=== PATIENT | female | born 1940 | race Caucasian/White ===

== ENCOUNTER 2016-08-31 03:49 | Inpatient (IN) | payer OTHER ==
[~2016-08-31] VITALS: Ht 162.6 cm; Wt 52.2 kg
[~2016-08-31 03:49] MED LIST: ADVAIR 250-501 EACH INH; ALBUTEROL0.09 MG/A1 INH; ALBUTEROL0.63 MG/1 INH/SOL; ALPRAZOLAM0.25 M1 PO; AYR SALINE NASA22 ML NASB; AZITHROMYCIN250 M1 PO; FLUTICASON0.05 MG/A2 NASB; LEVAQUIN500 MG PO; MUCINEX600 M1 PO; PAXIL20 MG PO; PREDNISONE 20MG20 MG PO; PREDNISONE10 M2 PO; PREDNISONE10 MG PO; PROAIR RESPICL90 MCG INH; SPIRIVA18 MCG INH; XANAX 0.25MG0.25 MG PO; ZITHROMAX250 M2 PO
--- NOTE | 2016-08-31 04:03 | ED DYSPNEA/ASTHMA COMPLAINT ---
History of Present Illness General Chief Complaint: Dyspnea (COPD, CHF, Other) Stated Complaint: SOB Source: patient, old records, EMS Exam Limitations: no limitations Vital Signs & Intake/Output Vital Signs & Intake/Output Vital Signs Date Time Temp Pulse Resp B/P Pulse O2 O2 Flow FiO2 Ox Delivery Rate 08/31 447 97 Nasal 3.0L Cannula 08/31 446 100.8 08/317 97 Nasal 2.0L Cannula 08/31 403 100.8 119 22 170/90 97 Nasal 3.0L Cannula Allergies Coded Allergies: levofloxacin (Mild, LEGS FELT TIGHT 01/18/16) clarithromycin (UNKNOWN - PT DOESNT REMEMBER WAS TOLD BY MD NOT TO TAKE 01/18/16 ) Reconcile Medications Albuterol Sulfate 0.63 MG/3 ML VIAL.NEB 1 Vial INH/AMOS TID COPD (Reported) Reason to Stop at ADM:[facility] ORDERS Albuterol Sulfate (Proair Respiclick) 90 MCG AER.POW.BA 2 PUFF INH Q4-6 PRN COPD Reason to Stop at ADM: [facility] ORDERS Alprazolam 0.25 MG TABLET 1 TAB PO PRN ANXIETY/SLEEP (Reported) Azithromycin 250 MG TABLET 1 TAB PO DAILY COPD exacerbation Fluticasone/Salmeterol (Advair 250-50 Diskus) 1 EACH BLST.W.DEV 1 PUF INH BID COPD (Reported) Reason to Stop at ADM: [facility] ORDERS Prednisone 10 MG TABLET 0 PO AD COPD exacerbation Please take prednisone: 6 tablets on 05/04/16 5 tablets on 05/05/16 4 tablets on 05/06/16 3 tablets on 05/07/16 2 tablets on 05/08/16 1 tablet on 05/09/16 and then stop then stop. Sodium Chloride ([place] Saline 50 Ml) 50 ML AMOS 2 GTT NASB BID PRN CONGESTION ( Reported) Tiotropium [place] (Spiriva) 18 MCG CAP.W.DEV 1 CAP INH DAILY COPD (Reported) Reason to Stop at ADM: [facility] NEB ORDER Triage Nurses Notes Reviewed? yes Onset: Gradual Duration: day(s):, getting worse Timing: recent history Severity: moderate Activities at Onset: none Prior Episodes/Possible Cause: occasional episodes Modifying Factors: Improves With: other (better w/neb). Associated Symptoms: wheezing HPI: 76-year-old woman with O2 dependent COPD presents With 1-2 days of coughing and wheezing dyspnea increased sputum production. She notes that tonight it got much worse. She was unable to catch her breath. She called 911. The medics arrived and they found her with an O2 sat in the low 90s on 3 L nasal cannula. They gave her a DuoNeb and brought her to the emergency department. She states that the DuoNeb helped her breathing. She notes no chest pain dizziness syncopal symptoms. She is otherwise well. Past History Medical History Any Pertinent Medical History? 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 Hx Contributory? No Review of Systems Review of Systems Constitutional: Reports: no symptoms. EENTM: Reports: no symptoms. Respiratory: Reports: no symptoms. Cardiovascular: Reports: no symptoms. GI: Reports: no symptoms. Genitourinary: Reports: no symptoms. Musculoskeletal: Reports: no symptoms. Skin: Reports: no symptoms. Neurological/Psychological: Reports: no symptoms. Hematologic/Endocrine: Reports: no symptoms. Immunologic/Allergic: Reports: no symptoms. All Other Systems: Reviewed and Negative Physical Exam Physical Exam General Appearance: well developed/nourished, moderate distress Head: atraumatic, normal appearance Eyes: Bilateral: normal appearance. Ears, Nose, Throat: normal pharynx, normal ENT inspection Neck: normal inspection, supple, full range of motion Respiratory: normal breath sounds, wheezing, prolonged expiratory phase Cardiovascular: regular rate/rhythm Gastrointestinal: normal bowel sounds, soft Extremities: normal inspection Neurologic/Psych: no motor/sensory deficits, awake, alert, oriented x 3 Skin: intact, normal color, warm/dry Core Measures ACS in differential dx? No Severe Sepsis Present: No Septic Shock Present: No Progress Differential Diagnosis: asthma, bronchitis, costochondritis, COPD Plan of Care: Orders Procedure Date/time Status Regular Diet 08/31 B Active Saline Lock 08/31 517 Active Misc Message 08/31 517 Active ED Holding Orders 08/31 517 Active Vital Signs 08/31 517 Active Code Status 08/31 517 Active Admit to inpatient 08/31 516 Active Patient Data 08/31 509 Active ARTERIAL BLOOD GAS (GEN) 08/31 404 Complete BLOOD CULTURE 08/31 404 Active BLOOD CULTURE 08/31 403 Active TROPONIN LEVEL 08/31 402 Complete COMPREHENSIVE METABOLIC PANEL 08/31 402 Complete CBC WITHOUT DIFFERENTIAL 08/31 402 Complete B-TYPE NATRIURETIC PEP (BNP) 08/31 402 Complete EKG 08/31 402 Active Current Medications Sig/Kirill Start time Last Medication Dose Stop Time Status Admin Acetaminophen 975 MG ONCE ONE 08/31 414 CAN (Tylenol) 08/31 415 Laboratory Tests 08/31/162: Anion Gap 12, Estimated GFR > 60, BUN/Creatinine Ratio 21.7, Glucose 144 H, Calcium 9.3, Total Bilirubin 0.7, AST 26, ALT 27, Alkaline Phosphatase 105, Troponin I 0.03, Oao-T-Eqeyhsewzig Pept 185 H, Total Protein 7.1, Albumin 4.3, Globulin 2.8, Albumin/Globulin Ratio 1.5, CBC w Diff MAN DIFF ORDERED, RBC 5.29, MCV 86.9, MCH 28.7, RDW 15.2 H, MPV 7.7, Gran % 91.4 H, Lymphocytes % 2.7 L, Monocytes % 5.3, Eosinophils % 0.3, Basophils % 0.3, Absolute Granulocytes 9.4 H, Segmented Neutrophils 86 H, Band Neutrophils 3, Absolute Lymphocytes 0.3 L, Lymphocytes 4 L, Monocytes 5, Absolute Monocytes 0.5, Absolute Eosinophils 0, Basophils 2, Absolute Basophils 0, Platelet Estimate ADEQUATE, Normochromic RBCs VERIFIED, Poikilocytosis 1+, Ovalocytes 1+, PUBS MCHC 33.0, Fld Total RBCs Counted 100 08/31/160: pH 7.42, pCO2 37, pO2 79 L, HCO3 23, ABG O2 Sat (Measured) 94.0 L, P-50 (Temp Corrected) Y, Carboxyhemoglobin 0.7 L, O2 Concentration % 2 LPM, Temperature 100.8 H, O2 Delivery Method N/C, Phlebotomy Draw Site RIGHT RADIAL Microbiology 08/31 426 BLOOD: Blood Culture - RECD 08/31 411 BLOOD: Blood Culture - RECD Diagnostic Imaging: Viewed by Me: Radiology Read. Discussed w/RAD: Radiology Read. CXR Impression: severe emphysema... full report below. Initial ED EKG: normal axis, normal intervals, normal p-waves, normal QRS complex, normal sinus rhythm Departure Departure Disposition: STILL A PATIENT Condition: Stable Clinical Impression Primary Impression: COPD exacerbation Referrals: CHI LEY MD (PCP/Family) Departure Forms: Customer Survey General Discharge Information Admission Note Spoke With: CHI LEY MD Documentation of Exam: Documentation of any treatments & extenuating circumstances including Concerns Regarding Discharge (functional status, medication knowledge or non-compliance, living conditions, etc.) that warrant an admission rather than observation: Pt with 02 dependent copd with increased 02 requirement, wheezing, prolonged expiratory phase, consistent with copd exacerbation. Pt requires increased 02 support for this medically fragile patient, as well as iv steroids/abx/nebs. Critical Care Note Critical Care Note Critical Care Time: non-applicable
--- NOTE | 2016-08-31 04:03 | NUR ---
PT BIBA FROM HOME. PT C/O INCREASING SOB, PT HAS HX OF COPD. PT USUALLY WEARS 2LNC AT HOME, O2 SAT 91%, PT RECIEVED A DUONEB IN THE FIELD. PT NOW SATING 100% ON 5L.
--- NOTE | 2016-08-31 04:03 | NUR ---
AT BEDSIDE FOR EVAL
--- NOTE | 2016-08-31 04:10 | NUR ---
RESPIRATORY AT BEDSIDE
[2016-08-31 04:25] LABS: ABSOLUTE BASOPHIL COUNT 0 /CUMM (0.0-0.2); ABSOLUTE EOSINOPHIL COUNT 0 /CUMM (0.0-0.7); ABSOLUTE GRANULOCYTE CT 9.4 /CUMM (1.4-6.5); ABSOLUTE LYMPH COUNT 0.3 /CUMM (1.2-3.4); ABSOLUTE MONOCYTE COUNT 0.5 /CUMM (0.10-0.60); BASOPHIL % 0.3 % (0.0-2.0); EOSINOPHIL % 0.3 % (0-5); GRANULOCYTE % 91.4 % (42.2-75.2); MEAN CORPUSCULAR HGB 28.7 PG (27.0-31.0); MEAN CORPUSCULAR VOLUME 86.9 FL (81.0-99.0); MEAN PLATELET VOLUME 7.7 FL (7.4-10.4); PLATELET COUNT 324 /CUMM (130-400); RBC DISTRIBUTION WIDTH 15.2 % (11.5-14.5); RED BLOOD CELL CT 5.29 /CUMM (4.20-5.40); WHITE BLOOD CELL COUNT 10.2 /CUMM (4.8-10.8)
--- NOTE | 2016-08-31 04:34 | RADIOLOGY REPORT ---
EXAMINATION: CHEST 1 VIEW CLINICAL INFORMATION: Dyspnea. COMPARISON: 05/01/2016. TECHNIQUE: An AP view of the chest is provided. FINDINGS: The cardiac silhouette is not enlarged. The mediastinal and hilar contours are unremarkable. There are neither pleural effusions nor pneumothoraces. Again identified is severe emphysema. There is vascular crowding noted within both lung bases. There is no acute airspace disease. The osseous structures are unremarkable. IMPRESSION: No consolidations. Severe emphysema.
--- NOTE | 2016-08-31 04:40 | NUR ---
PT MEDICATED WITH 1G ROCEPHIN, 250MG ZITHROMAX, 125MG SOLUMEDROL PER EMAR
--- NOTE | 2016-08-31 04:50 | NUR ---
PT MEDICATED WITH IG OFFIRMEV AND 4MG ZOFRAN PER EMAR
--- NOTE | 2016-08-31 04:50 | NUR ---
EKG IN PROGRESS
--- NOTE | 2016-08-31 04:58 | NUR ---
EKG DONE AND SHOWN TO DR. LESTER.
--- NOTE | 2016-08-31 05:10 | History & Physical ---
See Addendum JJ CLIFFORD,NANCY 08/31/16 0510: General Information and HPI MD Statement: I have seen and personally examined YISEL JAUREGUI and documented this H&P. The patient is a 76 year old F who presented with a patient stated chief complaint of [shortness of breath, chest tightness]. Source of Information: patient Exam Limitations: no limitations History of Present Illness: Patient is a 76-year-old lady who came to the ED due to shortness of breath and chest tightness. Patient has been having coughing and wheezing as well as increased sputum production over the past couple of days which was worsened last night around 9:30 PM, to the extent that she couldn't 'put herself out of it', she called 911, EMS detected oxygen saturation in low 90s on 3 L per nasal cannula, gave her DuoNeb treatment, which helped with help with her breathing, then brought her to the ED. Patient reports nasal congestion, runny nose, coughing with clear sputum production over the past few days. She reports chest tightness and palpitation when she can't breathe through the nose, also reports chronic PND and sinus pressure. Patient reports that recently she has lost appetite and also has lost weight. She feels that due to persistent dyspnea her diaphragm muscles get tired and she loses the appetite. Patient denies fever or chills. Patient reports that since her last admission in April she has been dealing with SOB constantly but last night was acutely worsened. Also reports a URTI in June for which she was given a 10 day course of keflex. 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 MOTHER FH: breast cancer Psychosocial History Who Do You Live With? child Services at Home: Oxygen Primary Language: Syrian Living Will? yes Functional Ability ADLs Independent: dressing, eating, toileting, bathing. Ambulation: independent IADLs Independent: finances, telephone, medication admin. Needs Assist: shopping (has aid at home x2 per week), housework, food prep, transportation. Review of Systems Review of Systems Constitutional: Denies: chills, fever, weakness. EENTM: Reports: no symptoms. Cardiovascular: Reports: chest pain, palpitations (w/ cough & shortness of breath). Denies: peripheral edema. Respiratory: Reports: cough, short of breath, sputum production, wheezing. Denies: orthopnea. GI: Reports: constipation (since she used keflex in Jun). Denies: abdominal pain. Genitourinary: Reports: no symptoms. Musculoskeletal: Reports: no symptoms. Skin: Reports: dryness. Denies: lesions. Neurological/Psychological: Reports: no symptoms. Denies: headache (reports sinus pressure). Hematologic/Endocrine: Reports: no symptoms. Exam & Diagnostic Data Last 24 Hrs of Vital Signs/I&O Vital Signs Date Time Temp Pulse Resp B/P Pulse O2 O2 Flow FiO2 Ox Delivery Rate 08/31 0448 97 Nasal 3.0L Cannula 08/31 0447 100.8 08/31 0417 97 Nasal 2.0L Cannula 08/31 0404 100.8 119 22 170/90 97 Nasal 3.0L Cannula Intake & Output 08/31 0800 08/31 0000 08/30 1600 Intake Total 650 Output Total Balance 650 Intake, IV 650 Patient 52.163 kg Weight Physical Exam General Appearance Alert, Oriented X3, Cooperative, Mild Distress Skin dry and scaling, hyperpigmentation and distal upper extremities. HEENT Atraumatic, PERRLA, EOMI, Mucous Membr. moist/pink Neck Supple, No JVD Cardiovascular Normal S1, Normal S2, No Murmurs Lungs ecreased breath sounds, rhonchi and wheezing diffuse and bilateral, no crackles Abdomen Normal Bowel Sounds, Soft, No Tenderness Neurological Normal Speech, Strength at 5/5 X4 Ext, Normal Tone, Sensation Intact, Cranial Nerves 3-12 NL Extremities No Clubbing, No Cyanosis, No Edema, Normal Pulses, No Tenderness/ Swelling Vascular Normal Pulses, Pulses Symmetrical Last 24 Hrs of Labs/Mannie: Laboratory Tests 08/31/16411: Anion Gap 12, Estimated GFR > 60, BUN/Creatinine Ratio 21.7, Glucose 144 H, Calcium 9.3, Total Bilirubin 0.7, AST 26, ALT 27, Alkaline Phosphatase 105, Troponin I 0.03, Vsp-F-Bnrdsnvclom Pept 185 H, Total Protein 7.1, Albumin 4.3, Globulin 2.8, Albumin/Globulin Ratio 1.5, D-Dimer 397 H, CBC w Diff MAN DIFF ORDERED, RBC 5.29, MCV 86.9, MCH 28.7, RDW 15.2 H, MPV 7.7, Gran % 91.4 H, Lymphocytes % 2.7 L, Monocytes % 5.3, Eosinophils % 0.3, Basophils % 0.3, Absolute Granulocytes 9.4 H, Segmented Neutrophils 86 H, Band Neutrophils 3, Absolute Lymphocytes 0.3 L, Lymphocytes 4 L, Monocytes 5, Absolute Monocytes 0.5, Absolute Eosinophils 0, Basophils 2, Absolute Basophils 0, Platelet Estimate ADEQUATE, Normochromic RBCs VERIFIED, Poikilocytosis 1+, Ovalocytes 1+, PUBS MCHC 33.0, Fld Total RBCs Counted 100 08/31/16409: pH 7.42, pCO2 37, pO2 79 L, HCO3 23, ABG O2 Sat (Measured) 94.0 L, P-50 (Temp Corrected) Y, Carboxyhemoglobin 0.7 L, O2 Concentration % 2 LPM, Temperature 100.8 H, O2 Delivery Method N/C, Phlebotomy Draw Site RIGHT RADIAL Microbiology 08/31 426 BLOOD: Blood Culture - RECD 08/31 411 BLOOD: Blood Culture - RECD Assessment/Plan Assessment: Patient is a 76-year-old lady with a past medical history of COPD on 2 L home oxygen, lung cancer status post radiation, who was brought in to the ED by ambulance due to sudden onset shortness of breath and chest tightness which improved after treatment with nebulizers. Patient is admitted to general medicine floor for possible COPD exacerbation. Problem list and plan Acute hypoxic respiratory failure, possibly due to COPD exacerbation, rule out pulmonary embolism Currently saturating at 97% with 3 L per nasal cannula. Chest x-ray shows no consolidations, severe emphysema. Patient has sinus tachycardia in the EKG. * Check d-dimer, if positive will order a CTA * O2 sats supplementation as needed * [facility] evaluation and treatment * IV Solu-Medrol 40 mg every 8 * Course of Azithromycin * Tinea Spiriva and Symbicort * Pulmonary consult with Dr. Fischer in the a.m. DVT prophylaxis * Subcutaneous Lovenox Diet * Regular CODE STATUS * Full code As Ranked By This Provider Problem List: 1. History of lung cancer 2. Acute exacerbation of chronic obstructive pulmonary disease (COPD) 3. Chest pressure Core Measures/Miscellaneous Acute Coronary Syndrome ACS Diagnosis: No Cerebrovascular Accident CVA/TIA Diagnosis: No Congestive Heart Failure CHF Diagnosis: No Venous Thromboembolism VTE Risk Factors: Acute medical illness, Age > 40 VTE Prophylaxis Ordered Inpt: Pharm- Lovenox No Mech VTE prophylaxis d/t: No contraindications No VTE Pharm Prophylaxis d/t: No contraindications VTE Diagnosis: No VTE Type: NONE VTE Confirmed by (Test): NONE Severe Sepsis Severe Sepsis Present: No Septic Shock Septic Shock Present: No Miscellaneous Documentation Attending Case Discussed With: CHI LEY MD Primary Care Physician: CHI LEY MD Patient sees these Specialists Dr. Washington, pulmonary Level of Patient Care: General Medicine DEREK CABRAL 08/31/16 0550: General Information and HPI Allergies/Medications Home Med list Albuterol Sulfate 0.63 MG/3 ML VIAL.NEB 1 Vial INH/AMOS TID COPD (Reported) Reason to Stop at ADM:[facility] ORDERS Albuterol Sulfate (Proair Respiclick) 90 MCG AER.POW.BA 2 PUFF INH Q4-6 PRN COPD Reason to Stop at ADM: [facility] NEB ORDERS Alprazolam 0.25 MG TABLET 1 TAB PO PRN ANXIETY/SLEEP (Reported) Fluticasone/Salmeterol (Advair 250-50 Diskus) 1 EACH BLST.W.DEV 1 PUF INH BID COPD (Reported) Reason to Stop at ADM: [facility] NEB ORDERS Sodium Chloride ([place] Saline 50 Ml) 50 ML AMOS 2 GTT NASB BID PRN CONGESTION ( Reported) Tiotropium [place] (Spiriva) 18 MCG CAP.W.DEV 1 CAP INH DAILY COPD (Reported) Reason to Stop at ADM: [facility] NEB ORDER Resident Review Statement Resident Statement: examined this patient, discussed with internet systems administrator, agreed with internet systems administrator Other Findings: Patient is a 76-year-old female with past medical history significant for lung cancer status post radiation and oxygen dependent COPD 2 L at home came with chief complaint of worsening shortness of breath and wheezing since yesterday. Patient admits she was not feeding weak lately but for the last 1-2 days her breathing was very labored and she heard herself wheezing a lot. His heart for her to catch her breath. She is visited by visiting nurse twice a week. She is compliant with her medications. She denied fever, chills, nausea, vomiting, chest pain but admit for having chest pressure this. She had productive cough with clear phlegm. She denied any urinary or bowel complaints Vital signs admission were temperature 100.8, pulse 119, respiratory rate 22, blood pressure 170/90 and she is saturating 97% on room air. Labs were significant for WBC count 10.2, hemoglobin 15.2, hematocrit 46.0, platelet count 324, ABG showed 7.42/37/79/23. Sodium 136, potassium 5.0, chloride 96, BUN 13 and creatinine 0.6 glucose is 144 Chest x-ray showed emphysema but no consolidation EKG shows sinus tachycardia Physical examination Alert and oriented to time person and place but labored breathing with accessory muscles Head atraumatic Neck supple Heart tachycardia with irregular heart beat, no murmurs Chest wheezing and reduced air entry Abdomen normal bowel sounds Extremities no cyanosis or edema noted Assessment and plan Patient is a frail 76-year-old female with history of lung cancer status post radiation and oxygen dependent COPD came with worsening shortness of breath most likely secondary to COPD exacerbation Admit patient on to the medical floor and taking care for the following issues Problem #1 worsening shortness of breath most likely due to COPD exacerbation in a patient of underlying LUNG cancer status post radiation -Vital signs every shift -TRC and nebulization -Antibiotic coverage with ceftriaxone and azithromycin -IV Solu-Medrol 40 mg 3 times a day -Pulmonology consultation with Dr. Washington in a.m. -We will check d-dimer, if high do CTA chest to rule out PE as patient has underlying cancer history and she is tachycardic with low-grade fever and hypoxia -We'll continue home medications including nebulizers and inhalers Pharmacological DVT prophylaxis Regular diet Patient is full code -
--- NOTE | 2016-08-31 05:42 | NUR ---
Emergency Dept UC Admit Note: To be admitted to [facility] by DR. LEY with COPD EXACERBATION as the diagnosis, to [id number]. Nursing Core Checker and admitting notified 08/31/16 at 0540
--- NOTE | 2016-08-31 05:44 | NUR ---
REPORT GIVEN TO MYKE PATEL
--- NOTE | 2016-08-31 06:46 | NUR ---
PT ARRIVED TO FLOOR AT 0605 VIA STRETCHER. TRANSFERED INDEPENDENTLY TO BED. VSS. 3L O2. SMALL PINPOINT AREA TO L BUTTOCK, PER PT OLD HEALING ULCER, REDNESS TO AREA, ENCOURAGED TO T AND R. PT INDEPENDENT AT BASELINE. INSTRUCTED TO CALL FOR HELP IF NEED TO GET OUT OF BED FOR FIRST TIME. PT UNDERSTANDS. ORIENTED TO CALL SINGH AND NURSE. DENIES SOB DENIES PAIN. WILL MONITOR
[2016-08-31 06:56] VITALS: BP 118/58
--- NOTE | 2016-08-31 08:48 | Cons- Pulmonary ---
General Information and HPI Consulting Request Date of Consult: 08/31/16 Requested By: tracey Reason for Consult: Shortness of breath History of Present Illness: Patient is 76-year-old with oxygen-dependent COPD admitted with increasing shortness of breath. She reports having been homebound since discharge in the fall with persistent shortness of breath and weakness she's received several courses of prednisone and antibiotics for suspected sinusitis yesterday she had worsening shortness of breath unrelieved by nebulizer and came to the emergency room and has had no chest pain or hemoptysis chest x-ray was unrevealing Allergies/Medications Allergies: Coded Allergies: levofloxacin (Mild, LEGS FELT TIGHT 01/18/16) clarithromycin (UNKNOWN - PT DOESNT REMEMBER WAS TOLD BY MD NOT TO TAKE 01/18/16 ) Home Med List: Albuterol Sulfate 0.63 MG/3 ML VIAL.NEB 1 Vial INH/AMOS TID COPD (Reported) Reason to Stop at ADM:[facility] ORDERS Albuterol Sulfate (Proair Respiclick) 90 MCG AER.POW.BA 2 PUFF INH Q4-6 PRN COPD Reason to Stop at ADM: [facility] ORDERS Alprazolam 0.25 MG TABLET 1 TAB PO PRN ANXIETY/SLEEP (Reported) Fluticasone/Salmeterol (Advair 250-50 Diskus) 1 EACH BLST.W.DEV 1 PUF INH BID COPD (Reported) Reason to Stop at ADM: [facility] ORDERS Sodium Chloride (Clovis Saline 50 Ml) 50 ML AMOS 2 GTT NASB BID PRN CONGESTION ( Reported) Tiotropium [place] (Spiriva) 18 MCG CAP.W.DEV 1 CAP INH DAILY COPD (Reported) Reason to Stop at ADM: [facility] NEB ORDER Review of Systems Review of Systems Constitutional: Denies: chills, fever. Cardiovascular: Denies: chest pain. Respiratory: Reports: cough, short of breath, sputum production. GI: Denies: abdominal pain, bloating, diarrhea, melena. 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 MOTHER FH: breast cancer Psychosocial History Where Do You Live? Home Who Do You Live With? child Services at Home: Oxygen Primary Language: Fijian Smoking Status: Former Smoker Living Will? yes Functional Ability ADLs Independent: dressing, eating, toileting, bathing. Ambulation: independent IADLs Independent: shopping, housework, finances, food prep, telephone, transportation , medication admin. Exam & Diagnostic Data Last 24 Hrs of Vital Signs/I&O Vital Signs Date Time Temp Pulse Resp B/P Pulse O2 O2 Flow FiO2 Ox Delivery Rate 08/31 0656 97.9 95 20 118/58 96 Nasal 3.0L Cannula 08/31 0642 Nasal 3.0L Cannula 08/31 0448 97 Nasal 3.0L Cannula 08/31 0447 100.8 08/31 0417 97 Nasal 2.0L Cannula 08/31 0404 100.8 119 22 170/90 97 Nasal 3.0L Cannula Intake & Output 08/31 1600 08/31 0800 08/31 0000 Intake Total 650 Output Total Balance 650 Intake, IV 650 Patient 115 lb Weight Oxygen saturation 3 L 96% she has low-grade temperature 100.8 exam for chest shows diminished breath sounds are no wheezes cardiac exam shows regular S1 and S2 without murmurs abdominal exam is soft nontender she has no lower extremity edema or calf tenderness Last 48 Hrs of Labs/Mannie: Laboratory Tests 08/31/16 0412: Anion Gap 12, Estimated GFR > 60, BUN/Creatinine Ratio 21.7, Glucose 144 H, Calcium 9.3, Total Bilirubin 0.7, AST 26, ALT 27, Alkaline Phosphatase 105, Troponin I 0.03, Zdz-J-Lidokmwowvi Pept 185 H, Total Protein 7.1, Albumin 4.3, Globulin 2.8, Albumin/Globulin Ratio 1.5, D-Dimer 397 H, CBC w Diff MAN DIFF ORDERED, RBC 5.29, MCV 86.9, MCH 28.7, RDW 15.2 H, MPV 7.7, Gran % 91.4 H, Lymphocytes % 2.7 L, Monocytes % 5.3, Eosinophils % 0.3, Basophils % 0.3, Absolute Granulocytes 9.4 H, Segmented Neutrophils 86 H, Band Neutrophils 3, Absolute Lymphocytes 0.3 L, Lymphocytes 4 L, Monocytes 5, Absolute Monocytes 0.5, Absolute Eosinophils 0, Basophils 2, Absolute Basophils 0, Platelet Estimate ADEQUATE, Normochromic RBCs VERIFIED, Poikilocytosis 1+, Ovalocytes 1+, PUBS MCHC 33.0, Fld Total RBCs Counted 100 08/31/16 0410: pH 7.42, pCO2 37, pO2 79 L, HCO3 23, ABG O2 Sat (Measured) 94.0 L, P-50 (Temp Corrected) Y, Carboxyhemoglobin 0.7 L, O2 Concentration % 2 LPM, Temperature 100.8 H, O2 Delivery Method N/C, Phlebotomy Draw Site RIGHT RADIAL Assessment/Plan Impression/Plan: 76-year-old woman with severe oxygen-dependent COPD admitted with increased shortness of breath likely due to COPD exacerbation. Results of CTA are pending. No prior sputum cultures have shown Pseudomonas. Chest x-ray is without evidence of pneumonia. Recommendations: Follow-up CTA results if no evidence of pneumonia narrow antibiotic regimen Taper FiO2 his saturations allow assess Q flu obtain sputum C&S continue IV Solu -Medrol Consult Acknowledgment - Thank you for your consult request.
--- NOTE | 2016-08-31 09:27 | CT SCAN REPORT ---
EXAMINATION: CT ANGIOGRAM CHEST CLINICAL INFORMATION: Sinus tachycardia. Dyspnea. Suspected pulmonary embolism. COMPARISON: Baseline CT of the chest done on 05/21/2013, CTA of the chest done on 04/27/2015 , and most recent prior CT of the chest done on 05/03/2016. TECHNIQUE: A noncontrast localizer was performed, followed by the administration of 95 mL Optiray [address] of the chest was then performed. Coronal and sagittal reformatted and MIP images of the chest were completed at the CT scanner and reviewed on the PACS workstation. No adverse effects were reported. DLP: 259.94 mGy-cm. FINDINGS: VISUALIZED NECK: Unremarkable. LUNGS: Extensive emphysematous changes are present throughout the lung piña bilaterally with predominant involvement of both upper lobes. Curvilinear pleural parenchymal opacity associated with underlying nonspecific paramediastinal, PD aortic soft tissue density, thickening are noted at left upper lobe of the lung anteromedially abutting the anteromedial aspect of the superior anterior mediastinum and the adjacent part of the aorta, likely represent pleural parenchymal scar given the patient history of prior treatment for lung carcinoma. Compared to most recent prior study done on 05/03/2016, the curvilinear airspace disease abutting the anteromedial aspect of the left upper hemithorax appears more pronounced. If local recurrence is clinically suspected, follow-up whole-body PET CT scan may be considered for further clarification. No discrete measurable focal mass identified. The tracheobronchial tree appeared to be patent. MEDIASTINUM: The pulmonary artery as well as the right ventricle appear enlarged, consistent with pulmonary arterial hypertension, appears similar to prior study dated 04/27/2015. There is a no evidence of any pulmonary embolism present. There are no pathologically enlarged mediastinal, hilar lymphadenopathy seen. PLEURA: There is no pleural effusion. No pleural mass or thickening. AXILLA: No lymphadenopathy. UPPER ABDOMEN: There is a stable 0.5 cm focal hyper density identified within the spleen, unchanged since 04/27/2015, may represent an incidental hemangioma. BONES: Chronic compression fracture of T7 vertebral bodies present. Moderate diffuse osteopenia is noted. No significant change. IMPRESSION: 1. No CT evidence of pulmonary embolism is present. 2. Extensive emphysematous disease is present throughout both lung piña with predominant involvement of both upper lobes with superimposed somewhat curvilinear pleural parenchymal disease at left upper lobe of the lung abutting the anterior medial aspect of the adjacent mediastinum including the arch of the aorta. The appearance is slightly more pronounced since the prior study dated 05/03/2016. Given the patient prior history of known left-sided upper lobar lung malignancy, if local disease recurrence is clinically suspected, follow-up whole-body PET CT scan may be considered for further clarification, although there is no discrete measurable mass is visualized on the current study. 3. Evidence of pulmonary arterial hypertension, appear chronic likely represent changes secondary to emphysematous disease. 4. Stable chronic compression fracture of T7 vertebral body, of uncertain etiology. Moderate diffuse osteopenia.
--- NOTE | 2016-08-31 10:46 | Admission Certification ---
Admission Certification Certification Statement - As attending physician, I certify that at the time of - admission, based on clinical presentation, severity of - symptoms, need for further diagnostic testing and - therapeutic interventions, and risk of adverse outcomes - without in-hospital treatment, in my clinical assessment, - this patient requires an acute hospital stay for a minimum - of two nights or longer. I have also considered psychsocial - factors such as support system, advanced age, financial - issues, cognitive issues, and failed out-patient treatments, - past re-admission history, safety of patient, and lack of - compliance as applicable. Specific rationale supporting this admission is: Worsening shortness of breath and wheezes
--- NOTE | 2016-08-31 10:51 | PN- Att Addend ---
Attending Addendum Attending Brief Note 76-year-old white female mostly homebound since April. History of COPD on home oxygen in the last few months has had several courses of antibiotics and prednisone has had several sinus infections. For the last day also her shortness of breath have gotten so bad she got scared and came to the emergency room. Will admit will have respiratory therapy IV steroids antibiotics. Will have Dr. Fischer her biomedical specialist follow the patient to while in the hospital Laboratory Tests 08/31 08/31 0412 0410 Blood Gas pH (7.35 - 7.45 PH) 7.42 pCO2 (35 - 45 TORR) 37 pO2 (80 - 100 TORR) 79 L HCO3 (21 - 28 MEQ/L) 23 ABG O2 Sat (Measured) (>96.0 %) 94.0 L P-50 (Temp Corrected) Y Carboxyhemoglobin (1.5 - 5.0 %) 0.7 L O2 Concentration % 2 LPM Temperature (97.0 - 100.0 FARH) 100.8 H O2 Delivery Method N/C Chemistry Sodium (137 - 145 mmol/L) 136 L Potassium (3.5 - 5.1 mmol/L) 5.0 Chloride (98 - 107 mmol/L) 96 L Carbon Dioxide (22 - 30 mmol/L) 28 Anion Gap (5 - 16) 12 BUN (7 - 17 mg/dL) 13 Creatinine (0.5 - 1.0 mg/dL) 0.6 Estimated GFR (>60 ml/min) > 60 BUN/Creatinine Ratio (7 - 25 %) 21.7 Glucose (65 - 99 mg/dL) 144 H Calcium (8.4 - 10.2 mg/dL) 9.3 Total Bilirubin (0.2 - 1.3 mg/dL) 0.7 AST (14 - 36 U/L) 26 ALT (9 - 52 U/L) 27 Alkaline Phosphatase (<127 U/L) 105 Troponin I (< 0.11 ng/ml) 0.03 Bok-Z-Yywkhtrvkia Pept (<125 pg/mL) 185 H Total Protein (6.3 - 8.2 g/dL) 7.1 Albumin (3.5 - 5.0 g/dL) 4.3 Globulin (1.9 - 4.2 gm/dL) 2.8 Albumin/Globulin Ratio (1.1 - 2.2 %) 1.5 Coagulation D-Dimer (70 - 232 ng/ml) 397 H Hematology CBC w Diff MAN DIFF ORDERED WBC (4.8 - 10.8 /CUMM) 10.2 RBC (4.20 - 5.40 /CUMM) 5.29 Hgb (12.0 - 16.0 G/DL) 15.2 Hct (37 - 47 %) 46.0 MCV (81.0 - 99.0 FL) 86.9 MCH (27.0 - 31.0 PG) 28.7 RDW (11.5 - 14.5 %) 15.2 H Plt Count (130 - 400 /CUMM) 324 MPV (7.4 - 10.4 FL) 7.7 Gran % (42.2 - 75.2 %) 91.4 H Lymphocytes % (20.5 - 51.1 %) 2.7 L Monocytes % (1.7 - 9.3 %) 5.3 Eosinophils % (0 - 5 %) 0.3 Basophils % (0.0 - 2.0 %) 0.3 Absolute Granulocytes (1.4 - 6.5 /CUMM) 9.4 H Segmented Neutrophils (42.2 - 75.2 %) 86 H Band Neutrophils (0.0 - 5.0 %) 3 Absolute Lymphocytes (1.2 - 3.4 /CUMM) 0.3 L Lymphocytes (20.5 - 51.1 %) 4 L Monocytes (1.7 - 9.3 %) 5 Absolute Monocytes (0.10 - 0.60 /CUMM) 0.5 Absolute Eosinophils (0.0 - 0.7 /CUMM) 0 Basophils (0.0 - 2.0 %) 2 Absolute Basophils (0.0 - 0.2 /CUMM) 0 Platelet Estimate (ADEQUATE) ADEQUATE Normochromic RBCs VERIFIED Poikilocytosis 1+ Ovalocytes 1+ PUBS MCHC (33.0 - 37.0 G/DL) 33.0 Miscellaneous Phlebotomy Draw Site RIGHT RADIAL Other Body Source Fld Total RBCs Counted (%) 100 SERVICE DATE: 08/31/16 EXAM TYPE: CAT - CTA CHEST EXAMINATION: CT ANGIOGRAM CHEST CLINICAL INFORMATION: Sinus tachycardia. Dyspnea. Suspected pulmonary embolism. COMPARISON: Baseline CT of the chest done on 05/21/2013, CTA of the chest done on 04/27/2015 , and most recent prior CT of the chest done on 05/03/2016. TECHNIQUE: A noncontrast localizer was performed, followed by the administration of 95 mL Optiray [address] of the chest was then performed. Coronal and sagittal reformatted and MIP images of the chest were completed at the CT scanner and reviewed on the PACS workstation. No adverse effects were reported. DLP: 259.94 mGy-cm. FINDINGS: VISUALIZED NECK: Unremarkable. LUNGS: Extensive emphysematous changes are present throughout the lung piña bilaterally with predominant involvement of both upper lobes. Curvilinear pleural parenchymal opacity associated with underlying nonspecific paramediastinal, PD aortic soft tissue density, thickening are noted at left upper lobe of the lung anteromedially abutting the anteromedial aspect of the superior anterior mediastinum and the adjacent part of the aorta, likely represent pleural parenchymal scar given the patient history of prior treatment for lung carcinoma. Compared to most recent prior study done on 05/03/2016, the curvilinear airspace disease abutting the anteromedial aspect of the left upper hemithorax appears more pronounced. If local recurrence is clinically suspected, follow-up whole-body PET CT scan may be considered for further clarification. No discrete measurable focal mass identified. The tracheobronchial tree appeared to be patent. MEDIASTINUM: The pulmonary artery as well as the right ventricle appear enlarged, consistent with pulmonary arterial hypertension, appears similar to prior study dated 04/27/2015. There is a no evidence of any pulmonary embolism present. There are no pathologically enlarged mediastinal, hilar lymphadenopathy seen. PLEURA: There is no pleural effusion. No pleural mass or thickening. AXILLA: No lymphadenopathy. UPPER ABDOMEN: There is a stable 0.5 cm focal hyper density identified within the spleen, unchanged since 04/27/2015, may represent an incidental hemangioma. BONES: Chronic compression fracture of T7 vertebral bodies present. Moderate diffuse osteopenia is noted. No significant change. IMPRESSION: 1. No CT evidence of pulmonary embolism is present. 2. Extensive emphysematous disease is present throughout both lung piña with predominant involvement of both upper lobes with superimposed somewhat curvilinear pleural parenchymal disease at left upper lobe of the lung abutting the anterior medial aspect of the adjacent mediastinum including the arch of the aorta. The appearance is slightly more pronounced since the prior study dated 05/03/2016. Given the patient prior history of known left-sided upper lobar lung malignancy, if local disease recurrence is clinically suspected, follow-up whole-body PET CT scan may be considered for further clarification, although there is no discrete measurable mass is visualized on the current study. 3. Evidence of pulmonary arterial hypertension, appear chronic likely represent changes secondary to emphysematous disease. 4. Stable chronic compression fracture of T7 vertebral body, of uncertain etiology. Moderate diffuse osteopenia. Current Medications Sig/Kirill Start time Last Medication Dose Route Stop Time Status Admin Acetaminophen 650 MG Q6P PRN 08/31 0545 AC PO Acetaminophen 1,000 MG ONCE ONE 08/31 0445 DC 08/31 N/A 1 UNIT IV 08/31 0459 0447 Acetaminophen 0 .STK-MED ONE 08/31 0443 DC IV Acetaminophen 0 .STK-MED ONE 08/31 0421 DC PO Acetaminophen 975 MG ONCE ONE 08/31 0415 CAN PO 08/31 0416 Albuterol Sulfate 3 ML BID 08/31 1000 AC 08/31 INH 0946 Albuterol Sulfate 2 PUF Q4P PRN 08/31 0600 AC INH Albuterol Sulfate 3 ML Q4P PRN 08/31 0600 AC INH Albuterol Sulfate 3 ML ONCE ONE 08/31 0415 DC 08/31 INH 08/31 0416 0416 Azithromycin 500 MG 0500 09/01 0500 AC Dextrose/Water 250 ML IV Azithromycin 500 MG ONCE ONE 08/31 0415 DC 08/31 Dextrose/Water 250 ML IV 08/31 0514 0439 Budesonide/ 2 PUF BID 08/31 1000 AC 08/31 Formoterol Fumarate INH 0911 Ceftriaxone Sodium 1,000 MG 0500 09/01 0500 AC IV Ceftriaxone Sodium 0 .STK-MED ONE 08/31 0421 DC .ROUTE Ceftriaxone Sodium 1,000 MG ONCE ONE 08/31 0415 DC 08/31 IV 08/31 0416 0439 Enoxaparin Sodium 40 MG DAILY 08/31 1000 AC 08/31 SC 0908 Hydromorphone HCl 0.5 MG Q4P PRN 08/31 0545 AC IV Ipratropium [place] 2.5 ML ONCE ONE 08/31 0415 DC 08/31 INH 08/31 0416 0416 Ketorolac 15 MG Q6P PRN 08/31 0545 AC Tromethamine IV 09/05 0544 Methylprednisolone 40 MG Q8 08/31 1400 AC IV Methylprednisolone 0 .STK-MED ONE 08/31 0421 DC .ROUTE Methylprednisolone 125 MG ONCE ONE 08/31 0415 DC 08/31 IV 08/31 0416 0439 Ondansetron HCl 4 MG ONCE ONE 08/31 0500 DC 08/31 IV 08/31 0501 0508 Ondansetron HCl 0 .STK-MED ONE 08/31 0447 DC .ROUTE Tiotropium [place] 1 PUF DAILY 08/31 1000 AC INH Microbiology Date/Time Procedure - Status Source Growth 08/31 1049 Respiratory Culture - ORD LOWER RESP 08/31 1049 Gram Stain - ORD LOWER RESP 08/31 0427 Blood Culture - RECD BLOOD 08/31 0412 Blood Culture - RECD BLOOD Vital Signs Date Time Temp Pulse Resp B/P Pulse O2 O2 Flow FiO2 Ox Delivery Rate 08/31 1005 95 Nasal 3.0L Cannula 08/31 0848 Nasal 3.0L Cannula 08/31 0656 97.9 95 20 118/58 96 Nasal 3.0L Cannula 08/31 0642 Nasal 3.0L Cannula 08/31 0448 97 Nasal 3.0L Cannula 08/31 0447 100.8 08/31 0417 97 Nasal 2.0L Cannula 08/31 0404 100.8 119 22 170/90 97 Nasal 3.0L Cannula Intake & Output 08/31 1600 08/31 0800 08/31 0000 Intake Total 650 Output Total Balance 650 Intake, IV 650 Patient 115 lb Weight
[2016-08-31 14:32] VITALS: BP 104/58
[2016-08-31 22:31] VITALS: BP 102/60
--- NOTE | 2016-09-01 04:22 | NUR ---
NURSING NOTE: PT HAS AZITHROMYCIN PRESCRIBED IV DAILY. PT ALSO HAS LISTED ALLERGY FOR CLARITHROMYCIN. PER MD, NANCY GARDNER, PT HAS RECEIVED AZITHROMYCIN IN THE PAST WITHOUT ANY REACTION. PT EDUCATED TO NOTIFY RN WITH ANY CHANGE WHILE MEDICATION INFUSING. RN WILL MONITOR.
[2016-09-01 06:36] VITALS: BP 96/80
--- NOTE | 2016-09-01 06:41 | PN- Housestaff ---
Subjective Follow-up For: Acute on chronic respiratory failure COPD exacerbation Subjective: Patient seen and examined at bedside this AM. She reports she is nervous about the results of her CTA but is aware she will follow up with Dr. Sethi as an outpatient for continued management. Review of Systems Constitutional: Denies: chills, fever, malaise. EENTM: Denies: blurred vision, visual changes, hearing changes. Cardiovascular: Denies: chest pain, palpitations. Respiratory: Reports: cough, short of breath, sputum production. Gastrointestinal: Denies: abdominal pain. Genitourinary: Denies: dysuria. Musculoskeletal: Denies: back pain. Skin: Denies: lesions. Neurological/Psychological: Denies: confusion, headache. Hematologic/Endocrine: Denies: bruising. Objective Last 24 Hrs of Vital Signs/I&O Vital Signs Date Time Temp Pulse Resp B/P Pulse O2 O2 Flow FiO2 Ox Delivery Rate 09/01 1051 97 Nasal 2.0L Cannula 09/01 0636 97.4 95 20 96/80 100 Nasal 2.0L Cannula 09/01 0539 97 Nasal 2.0L Cannula 09/01 0000 94 Nasal 2.0L Cannula 08/31 2231 98.2 90 20 102/60 94 Nasal Cannula 08/31 1610 96 Nasal 3.0L Cannula 08/31 1600 96 Nasal 2.5L Cannula 08/31 1432 97.8 91 20 104/58 98 Intake & Output 09/01 1600 / 0800 09/01 0000 Intake Total 400 250 Output Total Balance 400 250 Intake, IV 100 Intake, Oral 300 250 Physical Exam General Appearance: Alert, Oriented X3, Cooperative, No Acute Distress Skin: No Rashes, No Significant Lesion HEENT: Atraumatic, PERRLA, Mucous Membr. moist/pink Neck: Supple Lymphatic: Cervical nl Cardiovascular: Regular Rate, Normal S1, Normal S2, No Murmurs Lungs: Diminished breath sounds bilaterally without wheezing Abdomen: Normal Bowel Sounds, Soft, No Tenderness Neurological: Normal Speech, Normal Tone Extremities: No Clubbing, No Cyanosis, No Edema Vascular: Pulses Symmetrical Current Medications: Current Medications Sig/Kirill Start time Last Medication Dose Route Stop Time Status Admin Acetaminophen 650 MG Q6P PRN 08/31 0545 AC PO Albuterol Sulfate 3 ML BID 08/31 1000 AC 09/01 INH 1050 Albuterol Sulfate 2 PUF Q4P PRN 08/31 0600 AC INH Albuterol Sulfate 3 ML Q4P PRN 08/31 0600 AC INH Azithromycin 500 MG 0500 09/01 0500 DC 09/01 Dextrose/Water 250 ML IV 0411 Budesonide/ 2 PUF BID 08/31 1000 AC 09/01 Formoterol Fumarate INH 0950 Ceftriaxone Sodium 1,000 MG 0500 09/01 0500 DC 09/01 IV 0459 Enoxaparin Sodium 40 MG DAILY 08/31 1000 AC 09/01 SC 0950 Hydromorphone HCl 0.5 MG Q4P PRN 08/31 0545 AC IV Ketorolac 15 MG Q6P PRN 08/31 0545 AC Tromethamine IV 09/05 0544 Methylprednisolone 40 MG Q8 08/31 1400 DC 09/01 IV 0505 Patient Medication 1 ED .STK-MED ONE 08/31 1339 DC Teaching ED 08/31 1340 Prednisone 40 MG DAILY 09/01 1000 AC 09/01 PO 09/02 1001 0956 Sodium Chloride 2 SPRAY TIDPRN 08/31 1845 AC 09/01 MERLE 0949 Tiotropium [place] 1 PUF DAILY 08/31 1000 AC 09/01 INH 0950 Last 24 Hrs of Lab/Mannie Results Last 24 Hrs of Labs/Mics: Microbiology 09/01 0941 LOWER RESP: Respiratory Culture - RECD 09/01 0941 LOWER RESP: Gram Stain - RECD Orders Radiology Findings: EXAMINATION: CT ANGIOGRAM CHEST CLINICAL INFORMATION: Sinus tachycardia. Dyspnea. Suspected pulmonary embolism. COMPARISON: Baseline CT of the chest done on 05/21/2013, CTA of the chest done on 04/27/2015 , and most recent prior CT of the chest done on 05/03/2016. TECHNIQUE: A noncontrast localizer was performed, followed by the administration of 95 mL Optiray [address] of the chest was then performed. Coronal and sagittal reformatted and MIP images of the chest were completed at the CT scanner and reviewed on the PACS workstation. No adverse effects were reported. DLP: 259.94 mGy-cm. FINDINGS: VISUALIZED NECK: Unremarkable. LUNGS: Extensive emphysematous changes are present throughout the lung piña bilaterally with predominant involvement of both upper lobes. Curvilinear pleural parenchymal opacity associated with underlying nonspecific paramediastinal, PD aortic soft tissue density, thickening are noted at left upper lobe of the lung anteromedially abutting the anteromedial aspect of the superior anterior mediastinum and the adjacent part of the aorta, likely represent pleural parenchymal scar given the patient history of prior treatment for lung carcinoma. Compared to most recent prior study done on 05/03/2016, the curvilinear airspace disease abutting the anteromedial aspect of the left upper hemithorax appears more pronounced. If local recurrence is clinically suspected, follow-up whole-body PET CT scan may be considered for further clarification. No discrete measurable focal mass identified. The tracheobronchial tree appeared to be patent. MEDIASTINUM: The pulmonary artery as well as the right ventricle appear enlarged, consistent with pulmonary arterial hypertension, appears similar to prior study dated 04/27/2015. There is a no evidence of any pulmonary embolism present. There are no pathologically enlarged mediastinal, hilar lymphadenopathy seen. PLEURA: There is no pleural effusion. No pleural mass or thickening. AXILLA: No lymphadenopathy. UPPER ABDOMEN: There is a stable 0.5 cm focal hyper density identified within the spleen, unchanged since 04/27/2015, may represent an incidental hemangioma. BONES: Chronic compression fracture of T7 vertebral bodies present. Moderate diffuse osteopenia is noted. No significant change. IMPRESSION: 1. No CT evidence of pulmonary embolism is present. 2. Extensive emphysematous disease is present throughout both lung piña with predominant involvement of both upper lobes with superimposed somewhat curvilinear pleural parenchymal disease at left upper lobe of the lung abutting the anterior medial aspect of the adjacent mediastinum including the arch of the aorta. The appearance is slightly more pronounced since the prior study dated 05/03/2016. Given the patient prior history of known left-sided upper lobar lung malignancy, if local disease recurrence is clinically suspected, follow-up whole-body PET CT scan may be considered for further clarification, although there is no discrete measurable mass is visualized on the current study. 3. Evidence of pulmonary arterial hypertension, appear chronic likely represent changes secondary to emphysematous disease. 4. Stable chronic compression fracture of T7 vertebral body, of uncertain etiology. Moderate diffuse osteopenia. Miscellaneous Findings: EXAMINATION: CHEST 1 VIEW CLINICAL INFORMATION: Dyspnea. COMPARISON: 05/01/2016. TECHNIQUE: An AP view of the chest is provided. FINDINGS: The cardiac silhouette is not enlarged. The mediastinal and hilar contours are unremarkable. There are neither pleural effusions nor pneumothoraces. Again identified is severe emphysema. There is vascular crowding noted within both lung bases. There is no acute airspace disease. The osseous structures are unremarkable. IMPRESSION: No consolidations. Severe emphysema. Assessment/Plan Assessment: Ms. Aldana is a pleasant 76 year old female with PMH COPD on 2 L NC followed by Dr. Guevara and lung cancer s/p radiation with Dr. Sethi who presented to [facility] on 08/31/16 with chief complaint of worsening shortness of breath and chest heaviness since the day prior to admission. Patient noted increased wheezing and labored breathing for the 24 hours prior to admission with cough productive of clear phlegm. She denied fever, chills, nausea, vomiting and palpiations. In the ED: Vital signs showed T 100.8, HR 119, RR 22, BP 170/90 and O2 saturation of 97% on RA. Labs showed WBC count 10.2, hemoglobin 15.2, hematocrit 46.0, platelet count 324. ABG showed 7.42/37/79/23. Sodium 136, potassium 5.0, chloride 96, BUN 13 and creatinine 0.6. Glucose is 144. CXR showed emphysema without consolidation. EKG showed sinus tachycardia. Patient was admitted to the general medicien floor and the following is the management: 1. Acute on chronic respiratory failure secondary to COPD exacerbation * Patient currently saturating well on her home 2 L O2 via NC, continue * Continue TRC nebs, symbicort * Pulm consult with Dr. Guevara placed and appreciated * IV antibiotics have been discontinued * CXR and Chest CTA shows no consolidation, just severe emphysematous changes * IV solumedrol discontinued, patient started on 40 mg PO prednisone today and we will continue with a slow taper 2. Lung cancer s/p radiation therapy * CTA shows superimposed somewhatcurvilinear pleural parenchymal disease at left upper lobe of the lung abutting the anterior medial aspect of the adjacent mediastinum including the arch of the aorta. The appearance is slightly more pronounced since the prior study dated 05/03/2016 * Due to these findings, patient will follow up closely with radiation oncologist Dr. Sethi within 7 days of discharge for continued care 3. Atrial fibrillation with RVR * This afternoon patient had noted HR close to 170-180s, a total of 12 mg IV adenosine given which did not break rhythm * She was then given 10 mg IV cardizem and then placed on a heparin drip * He was transferred to telemetry and signed out to the telemetry team who will follow recommendations from the occupational health physiotherapist consulted, Dr. Plunkett * Patient placed on heparin drip 4. Pain * PO tylenol for mild pain * IV toradol for moderate pain * IV dilaudid for severe pain FULL CODE DVTP: Heparin Drip Diet: Regular Mild- severe pain pathways Problem List: 1. Tachycardia 2. Acute exacerbation of chronic obstructive pulmonary disease (COPD) 3. History of lung cancer in adulthood Pain Ratin Pain Location: n/a Pain Goal: Remain pain free Pain Plan: Tylenol for mild pain, IV toradol for severe pain. Tomorrow's Labs & Rationales: BEP (monitor hyponatremia)
--- NOTE | 2016-09-01 08:10 | PN- Pulmonary ---
Subjective HPI/Critical Care Issues: Shortness breath is improved nasal congestion has improved Objective Current Medications: Current Medications Sig/Kirill Start time Last Medication Dose Route Stop Time Status Admin Acetaminophen 650 MG Q6P PRN 08/31 0545 AC PO Albuterol Sulfate 3 ML BID 08/31 1000 AC 09/01 INH 0525 Albuterol Sulfate 2 PUF Q4P PRN 08/31 0600 AC INH Albuterol Sulfate 3 ML Q4P PRN 08/31 0600 AC INH Azithromycin 500 MG 0500 09/01 0500 AC 09/01 Dextrose/Water 250 ML IV 0411 Budesonide/ 2 PUF BID 08/31 1000 AC 08/31 Formoterol Fumarate INH 2109 Ceftriaxone Sodium 1,000 MG 0500 09/01 0500 AC 09/01 IV 0459 Enoxaparin Sodium 40 MG DAILY 08/31 1000 AC 08/31 SC 0908 Hydromorphone HCl 0.5 MG Q4P PRN 08/31 0545 AC IV Ketorolac 15 MG Q6P PRN 08/31 0545 AC Tromethamine IV 09/05 0544 Methylprednisolone 40 MG Q8 08/31 1400 AC 09/01 IV 0505 Patient Medication 1 ED .ST-MED ONE 08/31 1339 DC Teaching ED 08/31 1340 Sodium Chloride 2 SPRAY TIDPRN 08/31 1845 AC 09/01 MERLE 0509 Tiotropium [place] 1 PUF DAILY 08/31 1000 AC 08/31 INH 1100 Vital Signs & I&O Last 24 Hrs of Vitals and I&O: Vital Signs Date Time Temp Pulse Resp B/P Pulse O2 O2 Flow FiO2 Ox Delivery Rate 09/01 0636 97.4 95 20 96/80 100 Nasal 2.0L Cannula 09/01 0539 97 Nasal 2.0L Cannula 09/01 0000 94 Nasal 2.0L Cannula 08/31 2231 98.2 90 20 102/60 94 Nasal Cannula 08/31 1610 96 Nasal 3.0L Cannula 08/31 1600 96 Nasal 2.5L Cannula 08/31 1432 97.8 91 20 104/58 98 08/31 1005 95 Nasal 3.0L Cannula 08/31 0848 Nasal 3.0L Cannula Intake & Output 09/01 1600 09/01 0800 09/01 0000 Intake Total 400 250 Output Total Balance 400 250 Intake, IV 100 Intake, Oral 300 250 Impression/Plan Impression/Plan Impression/Plan: 76-year-old woman with severe oxygen-dependent COPD admitted with increased shortness of breath likely due to COPD exacerbation. Recommendations: DC Solu-Medrol begin oral prednisone taper FiO2 saturations allow anticipate discharge tomorrow. He T scan findings to be followed up by Dr. Sethi at radiation oncology
--- NOTE | 2016-09-01 10:55 | PN- Att Addend ---
Attending Addendum Attending Brief Note Patient in bed in no acute distress, states that still when she moves a little bit up exerts herself she gets short of breath and vital signs are stable not febrile. Was seen by Dr. Richardson, recommendations appreciated and he will discuss the results of the CAT scan with the patient probably follow with Dr. Sethi. We'll start slowly tapering the steroids on it her today reassess in the morning hopefully will be able to go home over the weekend. Current Medications Sig/Kirill Start time Last Medication Dose Route Stop Time Status Admin Acetaminophen 650 MG Q6P PRN 08/31 0545 AC PO Albuterol Sulfate 3 ML BID 08/31 1000 AC 09/01 INH 1050 Albuterol Sulfate 2 PUF Q4P PRN 08/31 0600 AC INH Albuterol Sulfate 3 ML Q4P PRN 08/31 0600 AC INH Azithromycin 500 MG 0500 09/01 0500 DC 09/01 Dextrose/Water 250 ML IV 0411 Budesonide/ 2 PUF BID 08/31 1000 AC 09/01 Formoterol Fumarate INH 0950 Ceftriaxone Sodium 1,000 MG 0500 09/01 0500 DC 09/01 IV 0459 Enoxaparin Sodium 40 MG DAILY 08/31 1000 AC 09/01 SC 0950 Hydromorphone HCl 0.5 MG Q4P PRN 08/31 0545 AC IV Ketorolac 15 MG Q6P PRN 08/31 0545 AC Tromethamine IV 09/05 0544 Methylprednisolone 40 MG Q8 08/31 1400 DC 09/01 IV 0505 Patient Medication 1 ED .STK-MED ONE 08/31 1339 MI Teaching ED 08/31 1340 Prednisone 40 MG DAILY 09/01 1000 AC / PO 04 1001 0956 Sodium Chloride 2 SPRAY TIDPRN 08/31 1845 AC 09/01 MERLE 0949 Tiotropium [place] 1 PUF DAILY 08/31 1000 AC 09/01 INH 0950 Microbiology Date/Time Procedure - Status Source Growth 09/01 0941 Respiratory Culture - RECD LOWER RESP 09/01 0941 Gram Stain - RECD LOWER RESP Vital Signs Date Time Temp Pulse Resp B/P Pulse O2 O2 Flow FiO2 Ox Delivery Rate 09/01 1051 97 Nasal 2.0L Cannula 09/01 0636 97.4 95 20 96/80 100 Nasal 2.0L Cannula 09/01 0539 97 Nasal 2.0L Cannula
[2016-09-01 13:30] VITALS: BP 92/64
[2016-09-01 14:10] VITALS: BP 90/62
--- NOTE | 2016-09-01 14:28 | Event Note ---
Event Note Event Note: Around 1:50 pm, I was notified by nursing that patient was extremely tachycardic to around 170s. Patient has no significant prior cardiac history, though last admission she was noted to be tachycardic and admitted to the telemetry floor. Patient had 40 mg PO prednisone this AM around 10 am and then subsequently a nebulizer treatment around 11. Then patient reports that around 1:30 she reported a chest heaviness with increasing dyspnea, which prompted a vital sign check. HR at this time was about 170, BP 92/60, RR 20. Resident was called and stat troponin/ekg ordered. Patient was given 6 mg IV adenosine x 2 without much improvement in HR, though the momentary decrease in HR suggested atrial fibrillation with RVR. Engra[employer]ler [employer] Dr. Plunkett was called and consulted- he will evaluate the patient soon. Dr. Gallagher was also notified who suggested cardiology consult and transfer to telemetry. Patient was then given 10 mg IV cardizem x 1 followed by the initiation of a cardizem drip at 2.5 cc/h due to borderline hypotension. Patient was transferred to the telemetry floor and signed out to the telemetry undergraduate internship/resident conveyor tender. Patient was then started on a heparin drip. Jb was called and did not answer his cell or home phone. A voicemail was left for him to return my call for more information regarding his 's care. Things for the telemetry undergraduate internship/resident to follow: Stat troponin Stat BEP Stat mag Cardiology consult
--- NOTE | 2016-09-01 14:36 | Cons- Cardiology ---
General Information and HPI Consulting Request Date of Consult: 09/01/16 Requested By: CHI LEY MD Reason for Consult: New-onset rapid atrial fibrillation in a patient with COPD exacerbation. Source of Information: patient, old records Exam Limitations: no limitations History of Present Illness: The patient is a 76-year-old female with severe underlying COPD and lung cancer. She was here in June 2015 for exacerbation of COPD when she had a presyncopal episode which I thought was vasovagal at that time. She was then discharged. She does not have any history of arrhythmias or any other heart disease. She did not follow-up with me as cardiology after that. Subsequently the patient has had a couple of admissions for exacerbation of COPD. She also had a course of radiation for left upper lobe cancer. She was admitted yesterday for again exacerbation of COPD. Early this afternoon she was noted to be tachycardic and an EKG documented rapid atrial fibrillation. She was giiven adenosine which did not convert her but did slow the ventricular response transiently. She was then given 10 mg of Cardizem IV and has been started on IV Cardizem drip. Her heart rate was initially about 150 and now is in the 110s to 120s. She is not having any chest pain or excessive shortness of breath. She is aware of her heart "pounding". She's not had any echocardiograms here in the past. Allergies/Medications Allergies: Coded Allergies: levofloxacin (Mild, LEGS FELT TIGHT 01/18/16) clarithromycin (UNKNOWN - PT DOESNT REMEMBER WAS TOLD BY NOT TO TAKE 01/18/16 ) Home Med List: Albuterol Sulfate 0.63 MG/3 ML VIAL.NEB 1 Vial INH/AMOS TID COPD (Reported) Reason to Stop at ADM:TR ORDERS Albuterol Sulfate (Proair Respiclick) 90 MCG AER.POW.BA 2 PUFF INH Q4-6 PRN COPD Reason to Stop at ADM: [facility] ORDERS Alprazolam 0.25 MG TABLET 1 TAB PO PRN ANXIETY/SLEEP (Reported) Fluticasone/Salmeterol (Advair 250-50 Diskus) 1 EACH BLST.W.DEV 1 PUF INH BID COPD (Reported) Reason to Stop at ADM: [facility] ORDERS Sodium Chloride ([place] Saline 50 Ml) 50 ML AMOS 2 GTT NASB BID PRN CONGESTION ( Reported) Tiotropium [place] (Spiriva) 18 MCG CAP.W.DEV 1 CAP INH DAILY COPD (Reported) Reason to Stop at ADM: TRC NEB ORDER Current Medications: Current Medications Sig/Kirill Start time Last Medication Dose Route Stop Time Status Admin Acetaminophen 650 MG Q6P PRN 08/31 0545 AC PO Adenosine 6 MG ONCE ONE 09/01 1415 UNVr IV 09/01 1416 Adenosine 6 MG ONCE ONE 09/01 1345 DC IV 09/01 1346 Albuterol Sulfate 3 ML BID 08/31 1000 AC 09/01 INH 1050 Albuterol Sulfate 2 PUF Q4P PRN 08/31 0600 AC INH Albuterol Sulfate 3 ML Q4P PRN 08/31 0600 AC INH Alprazolam 0.25 MG ONCE ONE 09/01 1345 DC 02/ PO 09/01 1346 1343 Azithromycin 500 MG 0500 09/01 0500 DC 09/01 Dextrose/Water 250 ML IV 0411 Budesonide/ 2 PUF BID 08/31 1000 AC 09/01 Formoterol Fumarate INH 0950 Ceftriaxone Sodium 1,000 MG 0500 09/01 0500 DC 02 IV 0459 Diltiazem HCl 10 MG ONCE ONE 09/01 1415 UNVr IV 09/01 1416 Diltiazem HCl 125 MG Q24H 09/01 1415 UNVr Sodium Chloride 100 ML IV Enoxaparin Sodium 40 MG DAILY 08/31 1000 AC 09/01 SC 0950 Hydromorphone HCl 0.5 MG Q4P PRN 08/31 0545 AC IV Ketorolac 15 MG Q6P PRN 08/31 0545 AC Tromethamine IV 09/05 0544 Methylprednisolone 40 MG Q8 08/31 1400 DC 09/01 IV 0505 Patient Medication 1 ED .STK-MED ONE 09/01 1412 DC Teaching ED 09/01 1413 Prednisone 40 MG DAILY 09/01 1000 AC / PO 04 1001 0956 Sodium Chloride 2 SPRAY TIDPRN 08/31 1845 AC 09/01 MERLE 0949 Tiotropium [place] 1 PUF DAILY 08/31 1000 AC 09/01 INH 0950 Review of Systems Review of Systems: She has no other complaints in the review of systems at this time Past History Travel History Traveled to [place] past 21 day No Medical History Blood Transfusion Hx: No Neurological: NONE EENT: NONE Cardiovascular: NONE Respiratory: COPD, emphysema, pneumonia, DEP ON 1.5 L NC Gastrointestinal: NONE Hepatic: NONE Renal: NONE Musculoskeletal: NONE Psychiatric: anxiety Endocrine: NONE Blood Disorders: NONE 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 MOTHER FH: breast cancer Psychosocial History Where Do You Live? Home Who Do You Live With? child Services at Home: Oxygen Primary Language: [place] Smoking Status: Former Smoker Living Will? yes Functional Ability ADLs Independent: dressing, eating, toileting, bathing. Ambulation: independent IADLs Independent: finances, telephone, medication admin. Needs Assist: shopping (has aid at home x2 per week), housework, food prep, transportation. Exam & Diagnostic Data Vital Signs and I&O Vital Signs Date Time Temp Pulse Resp B/P Pulse O2 O2 Flow FiO2 Ox Delivery Rate 09/01 1051 97 Nasal 2.0L Cannula 09/01 0800 Nasal 2.0L Cannula 09/01 0636 97.4 95 20 96/80 100 Nasal 2.0L Cannula 09/01 0539 97 Nasal 2.0L Cannula 09/01 0000 94 Nasal 2.0L Cannula 08/31 2231 98.2 90 20 102/60 94 Nasal Cannula 08/31 1610 96 Nasal 3.0L Cannula 08/31 1600 96 Nasal 2.5L Cannula 08/31 1432 97.8 91 20 104/58 98 Intake & Output 09/01 1600 09/01 0800 09/01 0000 08/31 1600 08/31 0800 08/31 0000 Intake Total 400 250 120 650 Output Total Balance 400 250 120 650 Intake, IV 100 650 Intake, Oral 300 250 120 Patient 115 lb Weight Physical Exam: On physical she is a thin elderly female appearing chronically ill and slightly uncomfortable from tachycardia but in no acute distress HEENT exam is normal Neck veins are not distended Carotids are normal Chest reveals decreased breath sounds and no rales, rhonchi or Wheezing. Heart reveals rapid irregular rhythm with no murmurs, gallops or rubs Extremities reveal no edema Labs/Mannie Results: Laboratory Tests 09/01 08/31 08/31 1350 0412 0410 Blood Gas pH (7.35 - 7.45 PH) 7.42 pCO2 (35 - 45 TORR) 37 pO2 (80 - 100 TORR) 79 L HCO3 (21 - 28 MEQ/L) 23 ABG O2 Sat (Measured) (>96.0 %) 94.0 L P-50 (Temp Corrected) Y Carboxyhemoglobin (1.5 - 5.0 %) 0.7 L O2 Concentration % 2 LPM Temperature (97.0 - 100.0 FARH) 100.8 H O2 Delivery Method N/C Chemistry Sodium (137 - 145 mmol/L) 136 L Potassium (3.5 - 5.1 mmol/L) 5.0 Chloride (98 - 107 mmol/L) 96 L Carbon Dioxide (22 - 30 mmol/L) 28 Anion Gap (5 - 16) 12 BUN (7 - 17 mg/dL) 13 Creatinine (0.5 - 1.0 mg/dL) 0.6 Estimated GFR (>60 ml/min) > 60 BUN/Creatinine Ratio (7 - 25 %) 21.7 Glucose (65 - 99 mg/dL) 144 H Calcium (8.4 - 10.2 mg/dL) 9.3 Total Bilirubin (0.2 - 1.3 mg/dL) 0.7 AST (14 - 36 U/L) 26 ALT (9 - 52 U/L) 27 Alkaline Phosphatase (<127 U/L) 105 Troponin I (< 0.11 ng/ml) 0.02 0.03 Uuv-Y-Dwutielucwa Pept (<125 pg/mL) 185 H Total Protein (6.3 - 8.2 g/dL) 7.1 Albumin (3.5 - 5.0 g/dL) 4.3 Globulin (1.9 - 4.2 gm/dL) 2.8 Albumin/Globulin Ratio (1.1 - 2.2 %) 1.5 Coagulation D-Dimer (70 - 232 ng/ml) 397 H Hematology CBC w Diff MAN DIFF ORDERED WBC (4.8 - 10.8 /CUMM) 10.2 RBC (4.20 - 5.40 /CUMM) 5.29 Hgb (12.0 - 16.0 G/DL) 15.2 Hct (37 - 47 %) 46.0 MCV (81.0 - 99.0 FL) 86.9 MCH (27.0 - 31.0 PG) 28.7 RDW (11.5 - 14.5 %) 15.2 H Plt Count (130 - 400 /CUMM) 324 MPV (7.4 - 10.4 FL) 7.7 Gran % (42.2 - 75.2 %) 91.4 H Lymphocytes % (20.5 - 51.1 %) 2.7 L Monocytes % (1.7 - 9.3 %) 5.3 Eosinophils % (0 - 5 %) 0.3 Basophils % (0.0 - 2.0 %) 0.3 Absolute Granulocytes (1.4 - 6.5 /CUMM) 9.4 H Segmented Neutrophils (42.2 - 75.2 %) 86 H Band Neutrophils (0.0 - 5.0 %) 3 Absolute Lymphocytes (1.2 - 3.4 /CUMM) 0.3 L Lymphocytes (20.5 - 51.1 %) 4 L Monocytes (1.7 - 9.3 %) 5 Absolute Monocytes (0.10 - 0.60 /CUMM) 0.5 Absolute Eosinophils (0.0 - 0.7 /CUMM) 0 Basophils (0.0 - 2.0 %) 2 Absolute Basophils (0.0 - 0.2 /CUMM) 0 Platelet Estimate (ADEQUATE) ADEQUATE Normochromic RBCs VERIFIED Poikilocytosis 1+ Ovalocytes 1+ PUBS MCHC (33.0 - 37.0 G/DL) 33.0 Miscellaneous Phlebotomy Draw Site RIGHT RADIAL Other Body Source Fld Total RBCs Counted (%) 100 Diagnostic Data EKG Results EKG on admission on August 31 showed sinus tachycardia rate of 119 with multiple atrial premature beats. There is borderline right axis deviation. Repeat EKG done today at 13:39 shows atrial fibrillation at a rate of 158 with a small incomplete right bundle branch block pattern. CXR Results PATIENT: YISEL JAUREGUI PRESENT AGE: 76 PATIENT ACCOUNT NO: [id number] : 41 LOCATION: [facility] ORDERING PHYSICIAN: LILIANA REIS MD SERVICE DATE: 08/31/16 EXAM TYPE: RAD - XRY-PORTABLE CHEST XRAY EXAMINATION: CHEST 1 VIEW CLINICAL INFORMATION: Dyspnea. COMPARISON: 05/01/2016. TECHNIQUE: An AP view of the chest is provided. FINDINGS: The cardiac silhouette is not enlarged. The mediastinal and hilar contours are unremarkable. There are neither pleural effusions nor pneumothoraces. Again identified is severe emphysema. There is vascular crowding noted within both lung bases. There is no acute airspace disease. The osseous structures are unremarkable. IMPRESSION: No consolidations. Severe emphysema. DICTATED BY: VALENTIN BAKER MD DATE/TIME DICTATED:08/31/16429 PRINT PRODUCTION MANAGER:AMANDA DATE/TIME TRANSCRIBED:08/31/16429 CONFIDENTIAL, DO NOT COPY WITHOUT APPROPRIATE AUTHORIZATION. <Electronically signed in Other Vendor System> SIGNED BY: VALENTIN BAKER MD 08/31/16433 Assessment/Plan Assessment/Plan The patient is a 76-year-old female with severe COPD who has been here for one day being treated for exacerbation of COPD. She went into rapid atrial fibrillation this afternoon. She does not appear to be in congestive heart failure. She is not having any chest pain. She has already been started on Cardizem drip. I recommend adding heparin drip as well. I would recommend getting an echocardiogram. I would recommend adjusting the Cardizem drip to keep her heart rate under 100. Once this is stable we can start her on oral Cardizem and oral anticoagulants. If she does not convert to sinus rhythm in the next 24-48 hours we might consider other antiarrhythmic drugs. The echocardiogram will be helpful in her management. Copies To: CHI LEY MD Consult Acknowledgment - Thank you for your consult request.
[2016-09-01 16:11] VITALS: BP 100/60
--- NOTE | 2016-09-01 20:33 | NUR ---
PT ASSESSED THROUGHOUT SHIFT. HR BEGAN TO RISE INTO THE 140'S-150'S. B/P REMAINED 100/60. PROTOTYPE MACHINE OPERATOR NELSON ALMONTE INFORMED. CARDIZEM INCREASED TO 4 MLS/HR VERBAL ORDER. PT ASSESED Q 15 MINUTES FOR ONE HOUR. B/P REMAINS THE SAME 100/60. HR DECREASED TO 120'S-130'S. PROTOTYPE MACHINE OPERATOR GAGE INFORMED. NEW ORDER FOR CARDIZEM 5ML/HR IV PLACED AND PT INCREASED TO 5ML/HR. PT CURRENTLY STABLE. B/P 102/62. HR 124. PT A/O. SPEECH CLEAR. NO C/O CP.
[2016-09-01 21:55] LABS: PTT 66 SEC (25-37)
--- NOTE | 2016-09-02 05:44 | NUR ---
APPX 0540, THIS RN NOTIFIED BY [facility] THAT PT CONVERTED TO NSR. NOTIFIED. WILL CONTINUE TO MONITOR
[2016-09-02 07:30] VITALS: BP 88/56
[2016-09-02 09:51] LABS: PTT 54 SEC (25-37)
[2016-09-02 09:59] VITALS: BP 90/58
--- NOTE | 2016-09-02 10:28 | PN- Housestaff ---
RICHARD CLIFFORD,TARAN 09/02/16 1027: Subjective Follow-up For: Acute on chronic respiratory failure COPD exacerbation Complaints: no complaints Tele-Events Since Last Visit: Atrial fibrillation changed into normal sinus rhythm Subjective: Patient is seen and examined at the bedside. She was complaining of dry cough but denies of chest pain, palpitation, shortness of breath. Review of Systems Constitutional: Denies: no symptoms. EENTM: Denies: no symptoms. Cardiovascular: Denies: chest pain, edema, orthopena, palpitations, peripheral edema. Respiratory: Reports: cough. Denies: hemoptysis, orthopnea, short of breath, sputum production. Gastrointestinal: Denies: no symptoms. Genitourinary: Denies: no symptoms. Musculoskeletal: Denies: no symptoms. Skin: Denies: no symptoms. Neurological/Psychological: Denies: no symptoms. Objective Last 24 Hrs of Vital Signs/I&O Vital Signs Date Time Temp Pulse Resp B/P Pulse O2 O2 Flow FiO2 Ox Delivery Rate 09/02 1046 96 Nasal 2.0L Cannula 09/02 0959 /58 09/02 0800 Nasal 2.0L Cannula 09/02 0730 97.6 69 22 88/56 93 Nasal 2.0L Cannula 09/02 0000 Nasal 2.0L Cannula 09/01 1611 97.7 125 20 100/60 94 Nasal 2.0L Cannula 09/01 1600 96 Nasal 2.0L Cannula 09/01 1430 152 96/56 /03 1420 148 92/56 /03 1410 90/62 /03 1345 165 94/58 /03 1330 97.7 160 28 92/64 96 Nasal 2.0L Cannula Intake & Output 09/02 1600 09/02 0800 09/02 0000 Intake Total 191.4 310 Output Total Balance 191.4 310 Intake, IV 191.4 60 Intake, Oral 250 Physical Exam General Appearance: Alert, Oriented X3, Cooperative, No Acute Distress Skin: No Rashes, No Breakdown, COLD eXTREMITIES, HEENT: Atraumatic, PERRLA, EOMI Neck: Supple, No JVD Cardiovascular: Regular Rate, Normal S1, Normal S2, murmur present Lungs: Clear to Auscultation, slight decrease air entry bilaterally Abdomen: Soft, No Tenderness, No Hepatospenomegaly Neurological: Normal Speech Extremities: No Clubbing, No Cyanosis, No Edema, cold extremity,ecchymotic skin patches on the haas Vascular: Normal Pulses, Pulses Symmetrical Assessment/Plan Assessment: Ms. Aldana is a pleasant 76 year old female with PMH COPD on 2 L NC followed by Dr. Guevara and lung cancer s/p radiation with Dr. Sethi who presented to [facility] on 08/31/16 with chief complaint of worsening shortness of breath and chest heaviness since the day prior to admission. Patient noted increased wheezing and labored breathing for the 24 hours prior to admission with cough productive of clear phlegm. She denied fever, chills, nausea, vomiting and palpiations. In the ED: Vital signs showed T 100.8, HR 119, RR 22, BP 170/90 and O2 saturation of 97% on RA. Labs showed WBC count 10.2, hemoglobin 15.2, hematocrit 46.0, platelet count 324. ABG showed 7.42/37/79/23. Sodium 136, potassium 5.0, chloride 96, BUN 13 and creatinine 0.6. Glucose is 144. CXR showed emphysema without consolidation. EKG showed sinus tachycardia. Problem list - * Atrial fibrillation with RVR, converted to normal sinus rhythm * Acute on chronic respiratory failure secondary to COPD exacerbation * Lung cancer s/p radiation therapy * Osteopenia * Pulmonary hypertension Plan - * We will continue telemetry monitoring * Discussed with Dr. Scott according to him, as the patient's sputum is growing gram-negative rods, but she is clinically afebrile. If she started having fever, then we will place ID consult * We will start patient on tab Multaq 400mg OD and Tabet, Cardizem 60 milligrams by mouth twice a day , and advised by core cutter * We'll keep patient on oxygen with target SPO2 more than 92% * Continue her on tapering doses of prednisone as advised by Dr. Peralta, 20mg for 3 days, 10 mgs, for 3 days than stop. * TRC/nebulization * Patient will follow up closely with radiation oncologist Dr. Sethi within 7 days of discharge for continued care,for lung cancer * we will continue patient on heparin drip, we will wait for cardiology opinion * FULL CODE * DVTP: Heparin Drip * Diet: Regular * Mild- severe pain pathways Problem List: 1. History of lung cancer 2. Acute exacerbation of chronic obstructive pulmonary disease (COPD) 3. Atrial fibrillation Pain Ratin Pain Location: none Pain Goal: Remain pain free Pain Plan: mild Tomorrow's Labs & Rationales: none DVT/Prophylaxis: mechanical, pharmacological SHAY SINCLAIR MD 09/02/16 1152: Attending MD Review Statement Attending Statement Attending MD Statement: examined this patient, discuss w/resident/PA/[employer], agreed w/resident/PA/[employer], reviewed EMR data (avail), reviewed images, amended to note Attending Assessment/Plan: Mrs. Aldana was interviewed and examined. Her EMR was reviewed She notes cough with increased ability to mobilize secretions. She states she feels "beat up" but is not having any chest pain or palpitations at this time. She is afebrile. Her heart rate is now approximately 80 and on telemetry she is in a normal sinus rhythm. Respiratory rate and O2 saturation are satisfactory on 2 L via nasal cannula. Her cardiac exam reveals regular rate and rhythm without murmur. Pulmonary exam shows decreased equal breath sounds without wheezing. Abdominal exam is benign. A sputum culture is growing a few gram-negative rods. Pulmonary status is stable with the patient off antibiotics now on an oral steroid taper. We should observe for now off antibiotics given her sputum culture results. She is now in normal sinus rhythm and as per recommendation of cardiology should be continued on by mouth diltiazem and begun on Multaq. Heparin infusion should be continued and we await cardiology direction as to oral anticoagulation.
--- NOTE | 2016-09-02 10:51 | PN- Cardiology ---
Subjective Subjective: * Patient complains of shortness of breath although it is somewhat improved compared with admission * Now in a sinus rhythm * Borderline BP on cardizem with the drip now being held Objective Vital Signs and I&Os Vital Signs Date Time Temp Pulse Resp B/P Pulse O2 O2 Flow FiO2 Ox Delivery Rate 09/02 0959 90/58 09/02 0800 Nasal 2.0L Cannula 09/02 0730 97.6 69 22 88/56 93 Nasal 2.0L Cannula 09/02 0000 Nasal 2.0L Cannula 09/01 1611 97.7 125 20 100/60 94 Nasal 2.0L Cannula 09/01 1600 96 Nasal 2.0L Cannula 09/01 1430 152 96/56 09/01 1420 148 92/56 / 1410 90/62 09/01 1345 165 94/58 09/01 1330 97.7 160 28 92/64 96 Nasal 2.0L Cannula 09/01 1051 97 Nasal 2.0L Cannula Intake & Output 09/02 1600 09/02 0800 09/02 0000 09/01 1600 09/01 0800 09/01 0000 Intake Total 191.4 310 315 400 250 Output Total Balance 191.4 310 315 400 250 Intake, IV 191.4 60 75 100 Intake, Oral 250 240 300 250 Physical Exam: General: WD/ thin female in NAD; alert and oriented x 3 Neck: positive JVD Heart: RRR with 2/6 systolic murmur lungs: severely decreased breath sounds bilaterally, no wheezing or crackles Extremities: no edema Assessment/Plan Assessment/Plan * This patient has a propensity to go into atrial fibrillation related to elevated pulmonary pressure due to COPD. We will begin her on Multaq 400mg BID to help keep her in a sinus rhythm. Please obtain a TSH and free T4. Obtain an echocardiogram to assess LV size, function and pulmonary pressures. Stop IV cardizem but continue oral cardizem at 60mg BID. Continue telemetry? Yes
--- NOTE | 2016-09-02 12:45 | PN- Pulmonary ---
Subjective HPI/Critical Care Issues: * Patient complains of shortness of breath although it is somewhat improved compared with admission, Went into afib now on heparinh * Now in a sinus rhythm * Borderline BP on cardizem with the drip now being held Objective Current Medications: Current Medications Sig/Kirill Start time Last Medication Dose Route Stop Time Status Admin Acetaminophen 650 MG Q6P PRN 08/31 0545 AC PO Adenosine 6 MG ONCE ONE 09/01 1415 DC 02 IV 09/01 1416 1420 Adenosine 6 MG ONCE ONE 09/01 1345 DC 02 IV 09/01 1346 1345 Albuterol Sulfate 3 ML BID 08/31 1000 AC 02/03 INH 1050 Albuterol Sulfate 2 PUF Q4P PRN 08/31 0600 AC INH Albuterol Sulfate 3 ML Q4P PRN 08/31 0600 AC INH Alprazolam 0.25 MG ONCE ONE 09/01 1345 DC 02/ PO / 1346 1343 Benzonatate 100 MG TID 09/02 1003 AC 02 PO 1113 Budesonide/ 2 PUF BID 08/31 1000 AC 0204 Formoterol Fumarate INH 0901 Diltiazem HCl 60 MG BID 09/02 1206 AC PO Diltiazem HCl 30 MG Q6 09/02 1200 DC PO Diltiazem HCl 10 MG ONCE ONE 09/01 1415 DC / IV 09/01 1416 1430 Diltiazem HCl 125 MG Q24H 09/01 1415 DC 09/01 Sodium Chloride 100 ML IV 1500 Dronedarone 400 MG BID 09/02 1205 AC PO Enoxaparin Sodium 40 MG DAILY 08/31 1000 DC 02 SC 0950 Heparin Sodium 2,100 UNIT ONCE ONE 09/02 1145 DC 02 (Porcine) IV 09/02 1146 1154 Heparin Sodium 5,000 UNIT .STK-MED ONE 09/01 1432 DC (Porcine) IV 02 1433 Heparin Sodium 4,000 UNIT ONCE ONE 09/01 1430 DC 09/01 (Porcine) IV 02/ 1431 1500 Heparin Sodium 25,000 UNIT Q24H / 1430 AC 09/01 (Porcine) IV 1500 Sodium Chloride 500 ML Hydromorphone HCl 0.5 MG Q4P PRN 08/31 0545 AC IV Ketorolac 15 MG Q6P PRN 08/31 0545 AC Tromethamine IV 09/05 0544 Patient Medication 1 UNIT ONE NR 09/02 1015 DC Teaching ED 09/02 1030 Patient Medication 1 ED .STK-MED ONE 09/01 1412 DC Teaching ED 09/01 1413 Prednisone 40 MG DAILY 09/01 1000 DC 09/02 PO 09/02 1001 0859 Sodium Chloride 2 SPRAY TIDPRN 08/31 1845 AC 09/01 MERLE 0949 Tiotropium [place] 1 PUF DAILY 08/31 1000 AC 09/02 INH 0859 Vital Signs & I&O Last 24 Hrs of Vitals and I&O: Vital Signs Date Time Temp Pulse Resp B/P Pulse O2 O2 Flow FiO2 Ox Delivery Rate 09/02 1046 96 Nasal 2.0L Cannula 09/02 0959 90/58 09/02 0800 Nasal 2.0L Cannula 09/02 0730 97.6 69 22 88/56 93 Nasal 2.0L Cannula 09/02 0000 Nasal 2.0L Cannula 09/01 1611 97.7 125 20 100/60 94 Nasal 2.0L Cannula 09/01 1600 96 Nasal 2.0L Cannula 09/01 1430 152 96/56 03 1420 148 92/56 /03 1410 90/62 03 1345 165 94/58 /03 1330 97.7 160 28 92/64 96 Nasal 2.0L Cannula Intake & Output 09/02 1600 09/02 0800 09/02 0000 Intake Total 191.4 310 Output Total Balance 191.4 310 Intake, IV 191.4 60 Intake, Oral 250 Impression/Plan Impression/Plan Impression/Plan: 76-year-old woman with severe oxygen-dependent COPD admitted with increased shortness of breath likely due to COPD exacerbation. New onset afib Cachexia copd Severe pulm htn due to copd Previous lung cancer with probable local recurrence needs xrt eval OSteoporosis with compression fracture REC Continue present medications. Anticoagulation per cardiology. Continue diltiazem. Continue Spiriva and the Symbicort. Please tell the respiratory therapist to give her nebulizer treatment only if she is significantly wheezing. Discontinue Ketorolac. If she continues to wheeze resume prednisone at 20 mg a day for 3 days, then 10 mg a day for 3 days
[2016-09-02 16:20] VITALS: BP 100/60
[2016-09-02 18:24] LABS: PTT 60 SEC (25-37)
[2016-09-02 23:07] VITALS: BP 104/60
[2016-09-03 01:38] LABS: PTT 61 SEC (25-37)
--- NOTE | 2016-09-03 08:09 | PN- Housestaff ---
Subjective Follow-up For: Acute on chronic respiratory failure COPD exacerbation Subjective: patient seen and examined, was lying in bed in no acute distress, complaining of productive cough, no other complaints, remains on 2 L of nasal cannula oxygen satting 90s, afebrile, vitals within normal limits. Review of Systems Constitutional: Denies: chills, fever. Cardiovascular: Denies: chest pain, palpitations. Respiratory: Reports: cough, sputum production. Denies: short of breath. Gastrointestinal: Denies: abdominal pain, constipation, diarrhea, nausea, vomiting. Genitourinary: Denies: dysuria, frequency. Objective Last 24 Hrs of Vital Signs/I&O Vital Signs Date Time Temp Pulse Resp B/P Pulse O2 O2 Flow FiO2 Ox Delivery Rate 09/03 0837 97.6 72 17 112/70 98 Nasal 2.0L Cannula 09/03 0000 Nasal 2.0L Cannula 09/02 2307 97.9 76 18 104/60 96 Nasal 2.0L Cannula 09/02 2214 82 104/60 09/02 2214 82 104/60 09/02 1620 97.7 80 20 100/60 98 Nasal 2.0L Cannula 09/02 1549 Nasal 2.0L Cannula 09/02 1509 91 102/60 0204 1353 94 98/60 04 1046 96 Nasal 2.0L Cannula 09/02 0959 90/58 Intake & Output 09/03 1600 09/03 0800 02 0000 Intake Total 560 760 Output Total 1 Balance 560 759 Intake, IV 160 160 Intake, Oral 400 600 Output, Other 1 Physical Exam General Appearance: Alert, Oriented X3, Cooperative, No Acute Distress Cardiovascular: Regular Rate, Normal S1, Normal S2, No Murmurs Lungs: bilateral basal coarse breath sounds. Abdomen: Normal Bowel Sounds, Soft, No Tenderness Extremities: No Clubbing, No Cyanosis, No Edema Current Medications: Current Medications Sig/Kirill Start time Last Medication Dose Route Stop Time Status Admin Acetaminophen 650 MG Q6P PRN 08/31 0545 AC PO Albuterol Sulfate 3 ML BID 08/31 1000 AC 09/01 INH 1050 Albuterol Sulfate 2 PUF Q4P PRN 08/31 0600 AC INH Albuterol Sulfate 3 ML Q4P PRN 08/31 0600 AC INH Benzonatate 100 MG TID 09/02 1003 AC 09/02 PO 2215 Budesonide/ 2 PUF BID 08/31 1000 AC 09/02 Formoterol Fumarate INH 2213 Diltiazem HCl 60 MG BID 09/02 1206 AC 09/02 PO 2214 Diltiazem HCl 30 MG Q6 09/02 1200 DC PO Diltiazem HCl 125 MG Q24H 09/01 1415 DC 09/01 Sodium Chloride 100 ML IV 1500 Dronedarone 400 MG BID 09/02 1205 AC 09/02 PO 2214 Heparin Sodium 2,100 UNIT ONCE ONE 09/02 1145 DC 09/02 (Porcine) IV 09/02 1146 1154 Heparin Sodium 25,000 UNIT Q24H 09/01 1430 AC 09/02 (Porcine) IV 1717 Sodium Chloride 500 ML Hydromorphone HCl 0.5 MG Q4P PRN 08/31 0545 AC IV Ketorolac 15 MG Q6P PRN 08/31 0545 AC Tromethamine IV 09/05 0544 Patient Medication 1 UNIT ONE NR 09/02 1015 DC Teaching ED 09/02 1030 Prednisone 10 MG DAILY 09/06 1000 AC PO 09/09 0959 Prednisone 20 MG DAILY 09/03 1000 AC PO 09/06 0959 Prednisone 20 MG DAILY 09/02 1315 CAN PO 09/08 1314 Prednisone 20 MG DAILY 09/02 1315 CAN PO 09/05 0959 Prednisone 40 MG DAILY 09/01 1000 DC 09/02 PO 09/02 1001 0859 Sodium Chloride 2 SPRAY TIDPRN 08/31 1845 AC 09/01 MERLE 0949 Tiotropium [place] 1 PUF DAILY 08/31 1000 AC 09/02 INH 0859 Last 24 Hrs of Lab/Mannie Results Last 24 Hrs of Labs/Mics: Laboratory Tests 09/03/16 0050: APTT 61 H 09/02/16 1705: APTT 60 H 09/02/16 1218: TSH Cancelled, Free T4 Cancelled 09/02/16 0915: APTT 54 H Assessment/Plan Assessment: Ms. Aldana is a pleasant 76 year old female with PMH COPD on 2 L NC followed by Dr. Guevara and lung cancer s/p radiation with Dr. Sethi who presented to [place] on 08/31/16 with chief complaint of worsening shortness of breath and chest heaviness since the day prior to admission. Patient noted increased wheezing and labored breathing for the 24 hours prior to admission with cough productive of clear phlegm. She denied fever, chills, nausea, vomiting and palpiations. In the ED: Vital signs showed T 100.8, HR 119, RR 22, BP 170/90 and O2 saturation of 97% on RA. Labs showed WBC count 10.2, hemoglobin 15.2, hematocrit 46.0, platelet count 324. ABG showed 7.42/37/79/23. Sodium 136, potassium 5.0, chloride 96, BUN 13 and creatinine 0.6. Glucose is 144. CXR showed emphysema without consolidation. EKG showed sinus tachycardia. Problem list - * Atrial fibrillation with RVR, converted to normal sinus rhythm * Acute on chronic respiratory failure secondary to COPD exacerbation * Lung cancer s/p radiation therapy * Osteopenia * Pulmonary hypertension Plan - * We will continue telemetry monitoring * Patient's sputum is growing gram-negative rods, but she is clinically afebrile. As per attending will watch off antibiotics, If she started having fever, then we will place ID consult * Patient started on Multaq 400mg OD and Tabet, Cardizem 60 milligrams by mouth twice a day as per cardiology mentation * We'll keep patient on oxygen with target SPO2 more than 92% * Continue her on tapering doses of prednisone as advised by Dr. Peralta, 20mg for 3 days, 10 mgs, for 3 days than stop. * TRC/nebulization * Patient will follow up closely with radiation oncologist Dr. Sethi within 7 days of discharge for continued care,for lung cancer * we will continue patient on heparin drip, we will wait for cardiology opinion * FULL CODE * DVTP: Heparin Drip * Diet: Regular * Mild- severe pain pathways Problem List: 1. COPD (chronic obstructive pulmonary disease) 2. Acute exacerbation of chronic obstructive pulmonary disease (COPD) 3. History of lung cancer 4. Atrial fibrillation Pain Ratin Pain Location: None Pain Goal: Remain pain free Pain Plan: Mild pain pathway Tomorrow's Labs & Rationales: CBC for WBC monitoring
[2016-09-03 08:37] VITALS: BP 112/70
--- NOTE | 2016-09-03 10:40 | PN- Pulmonary ---
Subjective HPI/Critical Care Issues: patient seen and examined, was lying in bed in no acute distress, complaining of productive cough, no other complaints, remains on 2 L of nasal cannula oxygen satting 90s, afebrile, vitals within normal limits. Review of Systems Constitutional: Denies: chills, fever. Cardiovascular: Denies: chest pain, palpitations. Respiratory: Reports: cough, sputum production. Denies: short of breath. Gastrointestinal: Denies: abdominal pain, constipation, diarrhea, nausea, vomiting. Genitourinary: Denies: dysuria, frequency. Objective Current Medications: Current Medications Sig/Kirill Start time Last Medication Dose Route Stop Time Status Admin Acetaminophen 650 MG Q6P PRN 08/31 0545 AC PO Albuterol Sulfate 3 ML BID 08/31 1000 AC 09/01 INH 1050 Albuterol Sulfate 2 PUF Q4P PRN 08/31 0600 AC INH Albuterol Sulfate 3 ML Q4P PRN 08/31 0600 AC INH Benzonatate 100 MG TID 09/02 1003 AC 09/03 PO 1020 Budesonide/ 2 PUF BID 08/31 1000 AC 09/03 Formoterol Fumarate INH 1018 Diltiazem HCl 60 MG BID 09/02 1206 AC 09/03 PO 1020 Diltiazem HCl 30 MG Q6 09/02 1200 DC PO Dronedarone 400 MG BID 09/02 1205 AC 09/03 PO 1020 Heparin Sodium 2,100 UNIT ONCE ONE 09/02 1145 DC 09/02 (Porcine) IV 09/02 1146 1154 Heparin Sodium 25,000 UNIT Q24H 09/01 1430 AC 09/02 (Porcine) IV 1717 Sodium Chloride 500 ML Hydromorphone HCl 0.5 MG Q4P PRN 08/31 0545 AC IV Ketorolac 15 MG Q6P PRN 08/31 0545 AC Tromethamine IV 09/05 0544 Prednisone 10 MG DAILY 09/06 1000 AC PO 09/09 0959 Prednisone 20 MG DAILY 09/03 1000 AC 09/03 PO 09/06 0959 1020 Prednisone 20 MG DAILY 09/02 1315 CAN PO 09/08 1314 Prednisone 20 MG DAILY 09/02 1315 CAN PO 09/05 0959 Sodium Chloride 2 SPRAY TIDPRN 08/31 1845 AC 09/01 MERLE 0949 Tiotropium [place] 1 PUF DAILY 08/31 1000 AC 09/03 INH 1018 Vital Signs & I&O Last 24 Hrs of Vitals and I&O: Vital Signs Date Time Temp Pulse Resp B/P Pulse O2 O2 Flow FiO2 Ox Delivery Rate 09/03 1020 83 112/60 09/03 1020 83 09/03 1009 93 Nasal 2.0L Cannula 09/03 0837 97.6 72 17 112/70 98 Nasal 2.0L Cannula 09/03 0000 Nasal 2.0L Cannula 09/02 2307 97.9 76 18 104/60 96 Nasal 2.0L Cannula 09/02 2214 82 104/60 09/02 2214 82 104/60 09/02 1620 97.7 80 20 100/60 98 Nasal 2.0L Cannula 09/02 1549 Nasal 2.0L Cannula 09/02 1509 91 102/60 09/02 1353 94 9809/02 1046 96 Nasal 2.0L Cannula Intake & Output 09/03 1600 09/03 0800 09/03 0000 Intake Total 560 760 Output Total 1 Balance 560 759 Intake, IV 160 160 Intake, Oral 400 600 Output, Other 1 Physical Exam General Appearance: Alert, Oriented X3, Cooperative, No Acute Distress Cardiovascular: Regular Rate, Normal S1, Normal S2, No Murmurs Lungs: bilateral basal coarse breath sounds. Abdomen: Normal Bowel Sounds, Soft, No Tenderness Extremities: No Clubbing, No Cyanosis, No Edema Laboratory Tests 09/03 09/02 09/02 09/02 09/02 0050 1705 1218 0915 0620 Chemistry Sodium (137 - 145 mmol/L) 140 Potassium (3.5 - 5.1 mmol/L) 4.7 Chloride (98 - 107 mmol/L) 104 Carbon Dioxide (22 - 30 mmol/L) 30 Anion Gap (5 - 16) 6 BUN (7 - 17 mg/dL) 21 H Creatinine (0.5 - 1.0 mg/dL) 0.7 Estimated GFR (>60 ml/min) > 60 BUN/Creatinine Ratio (7 - 25 %) 30.0 H TSH (0.270 - 4.200 uIU/mL) Cancelled 1.240 Free T4 (0.78 - 2.44 ng/dL) Cancelled 1.40 Coagulation APTT (25 - 37 SEC) 61 H 60 H 54 H 09/01 09/01 09/01 2115 1530 1350 Chemistry Sodium (137 - 145 mmol/L) 136 L Potassium (3.5 - 5.1 mmol/L) 4.0 Chloride (98 - 107 mmol/L) 100 Carbon Dioxide (22 - 30 mmol/L) 30 Anion Gap (5 - 16) 7 BUN (7 - 17 mg/dL) 16 Creatinine (0.5 - 1.0 mg/dL) 0.8 Estimated GFR (>60 ml/min) > 60 BUN/Creatinine Ratio (7 - 25 %) 20.0 Magnesium (1.6 - 2.3 mg/dL) 2.0 Troponin I (< 0.11 ng/ml) 0.02 Coagulation APTT (25 - 37 SEC) 66 H Microbiology Date/Time Procedure - Status Source Growth 09/01 940 Respiratory Culture - RES LOWER RESP GRAM NEGATIVE RODS 09/01 940 Gram Stain - RES LOWER RESP 08/31 1049 Respiratory Culture - CAN LOWER RESP Cancelled: Cancelled via OE: Per MD Decision 08/31 1049 Gram Stain - CAN LOWER RESP Cancelled: Cancelled via OE: Per MD Decision Impression/Plan Impression/Plan Impression/Plan: Significant data Reviewed Blood work from this morning pending Sputum culture grew gram-negative rods identification pending Medications reviewed Impression 76-year-old woman with severe oxygen-dependent COPD admitted with increased shortness of breath likely due to COPD exacerbation. New onset afib Cachexia copd Severe pulm htn due to copd, with previous pseudomonas now with gram neg rods in bharat sputum. Prob colonization Previous lung cancer with probable local recurrence needs xrt eval OSteoporosis with compression fracture REC Continue present medications. Check cbc and if the sputum is increasing and if her resp status is worse then start on po cipro for pseudomonas brochitis Anticoagulation per cardiology. Continue diltiazem. Continue Spiriva and the Symbicort. Please tell the respiratory therapist to give her nebulizer treatment only if she is significantly wheezing. If she continues to wheeze resume prednisone at 20 mg a day for 3 days, then 10 mg a day for 3 days
--- NOTE | 2016-09-03 11:48 | PN- Att Addend ---
Attending Addendum Attending Brief Note Mrs. Aldana notes only a complaint of several flushing spells overnight. She denies increased cough, wheeze, and sputum production. She has remained afebrile with stable vital signs and adequate oxygen saturation. Telemetry was reviewed and she has remained in sinus rhythm to the present. Pulmonary exam shows decreased breath sounds with very slightly increased expiratory phase but no wheezes or rhonchi. Cardiovascular exam is unchanged. WBC remains normal. As her pulmonary status has remained stable I agree with Dr. Peralta that we should observe the patient off antibiotics. Should she develop significant pulmonary symptoms we should then treat her with ciprofloxacin for a Pseudomonas bronchitis as he suggests. We will continue telemetry and should she remain in sinus rhythm anticoagulation may not be indicated. We will continue supportive care and her maintenance medications.
--- NOTE | 2016-09-03 14:06 | PN- Cardiology ---
Subjective Subjective: * Janeen reported a transient bout of lightheadedness and diaphoresis after sitting up last night. No chest discomfort and breathing is comfortable. * sinus rhythm on Multaq * On oral cardizem. IV cardizem is stopped. * thyroid function tests are WNL Objective Vital Signs and I&Os Vital Signs Date Time Temp Pulse Resp B/P Pulse O2 O2 Flow FiO2 Ox Delivery Rate 09/03 1020 83 112/60 09/03 1020 83 112/60 09/03 1009 93 Nasal 2.0L Cannula 09/03 0837 97.6 72 17 112/70 98 Nasal 2.0L Cannula 09/03 0800 Nasal 2.0L Cannula 09/03 0000 Nasal 2.0L Cannula 09/02 2307 97.9 76 18 104/60 96 Nasal 2.0L Cannula 09/02 2214 82 104/60 09/02 2214 82 104/60 09/02 1620 97.7 80 20 100/60 98 Nasal 2.0L Cannula 09/02 1549 Nasal 2.0L Cannula 09/02 1509 91 102/60 Intake & Output 09/03 1600 09/03 0800 / 0000 09/02 1600 09/02 0800 09/02 0000 Intake Total 560 760 480 191.4 310 Output Total 1 Balance 560 759 480 191.4 310 Intake, IV 160 160 191.4 60 Intake, Oral 400 600 480 250 Output, Other 1 Physical Exam: General: WD/ thin female in NAD; alert and oriented x 3 Neck: positive JVD Heart: RRR with 2/6 systolic murmur lungs: improved breath sounds bilaterally, no wheezing or crackles Extremities: no edema Assessment/Plan Assessment/Plan * This patient has a propensity to go into atrial fibrillation related to elevated pulmonary pressure due to COPD. An echocardiogram is pending to assess her RV pressures, atrial dimensions and overall EF. Continue We Multaq 400mg BID to help keep her in a sinus rhythm. If she maintains a sinus rhythm on this medication then chronic anticoagulation will not be necessary although the patient should be on an aspirin. Continue current dose of oral cardizem. * This patient is stable from a cardiac standpoint but needs office follow up to ensure that her Multaq is effective in maintaining a sinus rhythm. Continue telemetry? Yes
[2016-09-03 14:23] LABS: PTT 87 SEC (25-37)
[2016-09-03 14:56] LABS: ABSOLUTE BASOPHIL COUNT 0 /CUMM (0.0-0.2); ABSOLUTE EOSINOPHIL COUNT 0 /CUMM (0.0-0.7); ABSOLUTE LYMPH COUNT 0.1 /CUMM (1.2-3.4); ABSOLUTE MONOCYTE COUNT 0.3 /CUMM (0.10-0.60); BASOPHIL % 0 % (0.0-2.0); EOSINOPHIL % 0.1 % (0-5); GRANULOCYTE % 95.4 % (42.2-75.2); HEMATOCRIT 41.9 % (37-47); MEAN CORPUSCULAR HGB CONC 33.2 G/DL (33.0-37.0); MEAN CORPUSCULAR VOLUME 87.2 FL (81.0-99.0); MEAN PLATELET VOLUME 7.7 FL (7.4-10.4); PLATELET COUNT 334 /CUMM (130-400); RBC DISTRIBUTION WIDTH 14.9 % (11.5-14.5); RED BLOOD CELL CT 4.81 /CUMM (4.20-5.40); WHITE BLOOD CELL COUNT 9.4 /CUMM (4.8-10.8)
[2016-09-03 15:56] VITALS: BP 109/69
[2016-09-03 23:35] VITALS: BP 118/70
--- NOTE | 2016-09-04 00:01 | Event Note ---
Event Note Event Note: It was noted that the patient who had previously converted to normal sinus rhythm converted back to A. fib. Patient was asymptomatic and offered no complaints. Dr Patel, cardiology on-call physician was consulted. Recommend starting Eliquis 5 mg twice a day. Once this is been administered we can stop the heparin. Resident was made aware. Will sign out to the morning team.
[2016-09-04 01:52] LABS: PTT 110 SEC (25-37)
--- NOTE | 2016-09-04 07:10 | PN- Housestaff ---
Subjective Follow-up For: New onset atrial fibrillation Acute on chronic respiratory failure COPD exacerbation Tele-Events Since Last Visit: Currently sinus rhythm Keep going between Sinus rhythm and atrial fibrillation Heart rate 70-19 No evidence Subjective: Patient was seen and examined this this morning, no acute distress, vital signs are stable. No overnight events reported by the patient or the nurse. The patient reported feeling nauseous since cake knocker 5 AM, denied any vomiting, denied abdominal pain, diarrhea. She denied chest pain, palpitation, dizziness, visual disturbance. She also reported having some epigastric pressure. Had small bowel movement yesterday, no urinary symptoms. She is on 2 L oxygen with saturation 97%, complained of productive cough clear sputum. Review of Systems Constitutional: Reports: see HPI. Objective Last 24 Hrs of Vital Signs/I&O Vital Signs Date Time Temp Pulse Resp B/P Pulse O2 O2 Flow FiO2 Ox Delivery Rate 09/04 0911 74 116/74 09/04 0911 74 116/74 09/04 0850 98.0 74 20 116/74 97 Nasal 2.0L Cannula 09/04 0800 Nasal 2.0L Cannula 09/04 0000 Nasal 2.0L Cannula 09/03 2335 98.3 76 18 118/70 96 Nasal Cannula 09/03 2109 68 118/70 02/ 2109 68 118/70 02/05 1642 98 Nasal 2.0L Cannula 09/03 1556 98.1 76 18 109/69 97 Nasal 2.0L Cannula 09/03 1020 83 112/60 02/05 1020 83 112/60 02/05 1009 93 Nasal 2.0L Cannula Intake & Output 09/04 1600 09/04 0800 09/04 0000 Intake Total 180 200 Output Total Balance 180 200 Intake, IV 130 Intake, Oral 50 200 Physical Exam General Appearance: Alert, Oriented X3, Cooperative, No Acute Distress Skin: No Rashes, bruse 3x3 over the haas of left leg HEENT: Atraumatic, PERRLA, EOMI, Mucous Membr. moist/pink Neck: Supple Cardiovascular: Regular Rate, Normal S1, Normal S2, No Murmurs Lungs: Clear to Auscultation, Normal Air Movement Abdomen: Normal Bowel Sounds, Soft, Mild epigastric tenderness Neurological: Normal Speech, Strength at 5/5 X4 Ext, Normal Tone, Sensation Intact, Cranial Nerves 3-12 NL, Reflexes 2+ Extremities: No Clubbing, No Cyanosis, No Edema, Normal Pulses Assessment/Plan Assessment: Ms. Aldana is a pleasant 76 year old female with PMH COPD on 2 L NC followed by Dr. Guevara and lung cancer s/p radiation with Dr. Sethi who presented to [place] on 08/31/16 with chief complaint of worsening shortness of breath and chest heaviness since the day prior to admission. Patient noted increased wheezing and labored breathing for the 24 hours prior to admission with cough productive of clear phlegm. She denied fever, chills, nausea, vomiting and palpiations. In the ED: Vital signs showed T 100.8, HR 119, RR 22, BP 170/90 and O2 saturation of 97% on RA. Labs showed WBC count 10.2, hemoglobin 15.2, hematocrit 46.0, platelet count 324. ABG showed 7.42/37/79/23. Sodium 136, potassium 5.0, chloride 96, BUN 13 and creatinine 0.6. Glucose is 144. CXR showed emphysema without consolidation. EKG showed sinus tachycardia. Problem list - * Atrial fibrillation with RVR, converted to normal sinus rhythm * Acute on chronic respiratory failure secondary to COPD exacerbation * Lung cancer s/p radiation therapy * Osteopenia * Pulmonary hypertension Plan - * We will continue telemetry monitoring * Patient's sputum is growing Pseudomonas nausea, but she is clinically afebrile , MAXIMUM TEMPERATURE 98.3. As per attending will watch off antibiotics, If she started having fever, then we will place ID consult * Continue Multaq 400mg OD and Tabet, Cardizem 60 milligrams by mouth twice a day as per cardiology mentation * Start Eliquis 5 mg twice a day, DC heparin drip after first dose * We'll keep patient on oxygen with target SPO2 more than 92% on the patient is on home oxygen 2 L * Continue her on tapering doses of prednisone as advised by Dr. Peralta, 20mg for 3 days, 10 mgs, for 3 days than stop. * TRC/nebulization * Patient will follow up closely with radiation oncologist Dr. Sethi within 7 days of discharge for continued care,for lung cancer * Thyroid function within normal * FULL CODE * DVTP: Eliquis * Diet: Regular * Mild pain pathway Problem List: 1. Acute bronchitis with chronic obstructive pulmonary disease (COPD) 2. Lung cancer 3. Atrial fibrillation Pain Ratin Pain Location: Epigastric pressure Pain Goal: Pain 4 or less Pain Plan: mild pain pathway Tomorrow's Labs & Rationales: CBC, CMP
--- NOTE | 2016-09-04 07:51 | PN- Pulmonary ---
Subjective HPI/Critical Care Issues: Events of the weekend reviewed patient is now in normal sinus rhythm though remains on heparin sputum culture revealed Pseudomonas though her sputum is described as clear without apparent purulence Objective Current Medications: Current Medications Sig/Kirill Start time Last Medication Dose Route Stop Time Status Admin Acetaminophen 650 MG Q6P PRN 08/31 0545 AC PO Albuterol Sulfate 3 ML Q4P PRN 09/03 1100 AC 09/03 INH 1636 Albuterol Sulfate 3 ML BID 08/31 1000 DC 09/01 INH 1050 Albuterol Sulfate 2 PUF Q4P PRN 08/31 0600 AC INH Albuterol Sulfate 3 ML Q4P PRN 08/31 0600 DC INH Apixaban 5 MG BID 09/04 1000 AC PO Benzonatate 100 MG TID 09/02 1003 AC 09/03 PO 2109 Budesonide/ 2 PUF BID 08/31 1000 AC 09/03 Formoterol Fumarate INH 2110 Diltiazem HCl 60 MG BID 09/02 1206 AC 09/03 PO 2109 Docusate Sodium 100 MG DAILY NEEDED PRN 09/03 2030 AC 09/03 PO 2109 Dronedarone 400 MG BID 09/02 1205 AC 09/03 PO 2109 Heparin Sodium 25,000 UNIT Q24H 09/01 1430 AC 09/03 (Porcine) IV 1627 Sodium Chloride 500 ML Hydromorphone HCl 0.5 MG Q4P PRN 08/31 0545 AC IV Ketorolac 15 MG Q6P PRN 08/31 0545 AC Tromethamine IV 09/05 0544 Omeprazole 20 MG DAILY AC 09/04 0738 UNVr PO Ondansetron HCl 4 MG ONCE ONE 09/04 0745 UNVr PO 09/04 0746 Prednisone 10 MG DAILY 09/06 1000 AC PO 09/09 0959 Prednisone 20 MG DAILY 09/03 1000 AC 09/03 PO 09/06 0959 1020 Sodium Chloride 2 SPRAY TIDPRN 08/31 1845 AC 09/01 MERLE 0949 Tiotropium [place] 1 PUF DAILY 08/31 1000 AC 09/03 INH 1018 Vital Signs & I&O Last 24 Hrs of Vitals and I&O: Vital Signs Date Time Temp Pulse Resp B/P Pulse O2 O2 Flow FiO2 Ox Delivery Rate 09/04 0000 Nasal 2.0L Cannula 09/03 2335 98.3 76 18 118/70 96 Nasal Cannula 09/03 2109 68 118/70 09/03 2109 68 118/70 09/03 1642 98 Nasal 2.0L Cannula 09/03 1556 98.1 76 18 109/69 97 Nasal 2.0L Cannula 09/03 1020 83 112/60 09/03 1020 83 112/60 09/03 1009 93 Nasal 2.0L Cannula 09/03 0837 97.6 72 17 112/70 98 Nasal 2.0L Cannula 09/03 0800 Nasal 2.0L Cannula Intake & Output 09/04 0800 09/04 0000 09/03 1600 Intake Total 180 200 480 Output Total Balance 180 200 480 Intake, IV 130 Intake, Oral 50 200 480 Oxygen saturation 2 L 96% exam for chest shows diminished breath sounds are no wheezes heard cardiac exam shows a regular S1 and S2 without murmurs Impression/Plan Impression/Plan Impression/Plan: 76-year-old woman with severe oxygen-dependent COPD admitted with increased shortness of breath likely due to COPD exacerbation. Transient episode of atrial fibrillation appears to have resolved Recommendations: Taper FiO2 his saturations allow continue prednisone taper. Await cardiology decisions regarding future anticoagulation.
[2016-09-04 08:13] LABS: ABSOLUTE BASOPHIL COUNT 0 /CUMM (0.0-0.2); ABSOLUTE EOSINOPHIL COUNT 0 /CUMM (0.0-0.7); ABSOLUTE GRANULOCYTE CT 4.6 /CUMM (1.4-6.5); ABSOLUTE LYMPH COUNT 0.3 /CUMM (1.2-3.4); ABSOLUTE MONOCYTE COUNT 0.5 /CUMM (0.10-0.60); BASOPHIL % 0.2 % (0.0-2.0); EOSINOPHIL % 0.7 % (0-5); GRANULOCYTE % 83.9 % (42.2-75.2); HEMATOCRIT 41.5 % (37-47); MEAN CORPUSCULAR HGB 29.1 PG (27.0-31.0); MEAN CORPUSCULAR HGB CONC 33.2 G/DL (33.0-37.0); MEAN CORPUSCULAR VOLUME 87.7 FL (81.0-99.0); PLATELET COUNT 305 /CUMM (130-400); RBC DISTRIBUTION WIDTH 15.4 % (11.5-14.5); RED BLOOD CELL CT 4.73 /CUMM (4.20-5.40); WHITE BLOOD CELL COUNT 5.5 /CUMM (4.8-10.8)
[2016-09-04 08:50] VITALS: BP 116/74
--- NOTE | 2016-09-04 09:56 | ECHOCARDIOGRAM REPORT ---
YISEL JAUREGUI Age: 76 : 1940 Gender: F Exam Date: 09/03/2016 09:34 Exam Location: [address] Ht (in): 64 Wt (lb): 115 BSA: 1.53 BP: 104 / 60 Ordering Physician: NELSON ALMONTE MD Referring Physician: Edil Plunkett MD Chief, SoC Technologist: Raquel Calvin [facility] Room Number: 171 Indications: AFIB/FLUTTER Rhythm: Technical Quality: Good FINDINGS Left Ventricle Normal global left ventricular size, wall thickness, systolic function with no obvious regional wall motion abnormalities. Left ventricular ejection fraction is estimated at >65 %. Normal left ventricular diastolic filling pattern for age. Right Ventricle The right ventricle is normal in size and function. Right Atrium The right atrium is normal in size. Left Atrium The left atrium is normal in size. Interatrial septal aneurysm. Mitral Valve The mitral valve is normal in structure and function. There is mild mitral regurgitation. Aortic Valve Structurally normal aortic valve without significant sclerosis or stenosis. There is no aortic regurgitation. Tricuspid Valve The tricuspid valve is normal in structure and function. There is mild tricuspid regurgitation. Right ventricular systolic pressure estimated to be mildly elevated at 35-40 mmHg. Pulmonic Valve Structurally normal pulmonic valve. There is trace pulmonic regurgitation. Pericardium Normal pericardium without effusion. No pleural effusion. Great Vessels Normal aortic root dimension. The aortic arch and great vessels are well seen and are normal. CONCLUSIONS Normal global left ventricular size, wall thickness, systolic function with no obvious regional wall motion abnormalities. The mitral valve is normal in structure and function. The left atrium is normal in size. Interatrial septal aneurysm. Structurally normal aortic valve without significant sclerosis or stenosis. Right ventricular systolic pressure estimated to be mildly elevated at 35-40 mmHg. Edil Plunkett M.D. (Electronically Signed) Final Date: 04 September 2016 09:55 MEASUREMENTS (Male / Female) Normal Values 2D ECHO LV Diastolic Diameter PLAX 3.4 cm 4.2 - 5.9 / 3.9 - 5.3 cm LV Systolic Diameter PLAX 2.3 cm 2.1 - 4.0 cm LV Fractional Shortening PLAX 32.4 % 25 - 46 % LV Ejection Fraction 2D Teich 61.8 % IVS Diastolic Thickness 0.8 cm LVPW Diastolic Thickness 0.9 cm LV Relative Wall Thickness 0.5 RV Internal Dim ED PLAX 2.1 cm 1.9 - 3.8 cm LVOT Diameter 1.8 cm Aortic Root Diameter 2.5 cm LA Systolic Diameter LX 2.5 cm 3.0 - 4.0 / 2.7 - 3.8 cm LA Volume 16.0 cm 18 - 58 / 22 - 52 cm Ascending Aorta Diameter 2.7 cm DOPPLER AV Peak Velocity 133.0 cm/s AV Peak Gradient 7.1 mmHg AV Mean Velocity 87.9 cm/s AV Mean Gradient 4.0 mmHg AV Velocity Time Integral 20.3 cm LVOT Peak Velocity 103.0 cm/s LVOT Peak Gradient 4.2 mmHg LVOT Mean Velocity 61.3 cm/s LVOT Mean Gradient 2.0 mmHg LVOT Velocity Time Integral 16.4 cm LVOT Stroke Volume 41.7 cm AV Area Cont Eq vti 2.1 cm AV Area Cont Eq pk 2.0 cm MV Peak Velocity 91.7 cm/s MV Peak Gradient 3.4 mmHg MV Mean Velocity 40.9 cm/s MV Mean Gradient 1.0 mmHg Mitral E Point Velocity 72.6 cm/s Mitral A Point Velocity 41.5 cm/s Mitral E to A Ratio 1.7 MV PHT Velocity 88.9 cm/s MV Deceleration Mcmullen 726.0 cm/s MV Pressure Half Time 36.7 ms MV Area PHT 6.0 cm MV Deceleration Time 217.0 ms TR Peak Velocity 287.0 cm/s TR Peak Gradient 32.9 mmHg Right Atrial Pressure 5.0 mmHg Pulmonary Artery Systolic Pressu 37.9 mmHg Right Ventricular Systolic Press 37.9 mmHg PV Peak Velocity 101.0 cm/s PV Peak Gradient 4.1 mmHg PV Mean Velocity 63.5 cm/s PV Mean Gradient 2.0 mmHg PV Velocity Time Integral 16.0 cm LV E' Lateral Velocity 8.1 cm/s Mitral E to LV E' Lateral Ratio 9.0 LV E' Septal Velocity 8.9 cm/s Mitral E to LV E' Septal Ratio 8.2
[2016-09-04 10:17] LABS: PTT 77 SEC (25-37)
--- NOTE | 2016-09-04 10:23 | PN- Cardiology ---
Subjective Subjective: The patient maintained sinus rhythm for about 2 days but apparently went back into atrial fibrillation last evening. She is in atrial fibrillation on the monitor at a rate of about 100. She is on Multaq, Eliquis and Cardizem. Her echocardiogram showed good left ventricular systolic function. Her left atrium is not dilated. Her pulmonary artery pressure is only mildly elevated at 35-40 mmHg. She is improving with regards to her pulmonary status. Objective Vital Signs and I&Os Vital Signs Date Time Temp Pulse Resp B/P Pulse O2 O2 Flow FiO2 Ox Delivery Rate 09/04 0911 74 116/74 09/04 0911 74 116/74 09/04 0850 98.0 74 20 116/74 97 Nasal 2.0L Cannula 09/04 0800 Nasal 2.0L Cannula 09/04 0000 Nasal 2.0L Cannula 09/03 2335 98.3 76 18 118/70 96 Nasal Cannula 09/03 2109 68 118/70 09/03 2109 68 118/70 09/03 1642 98 Nasal 2.0L Cannula 09/03 1556 98.1 76 18 109/69 97 Nasal 2.0L Cannula Intake & Output 09/04 1600 09/04 0800 09/04 0000 09/03 1600 09/03 0800 09/03 0000 Intake Total 180 200 480 560 760 Output Total 1 Balance 180 200 480 560 759 Intake, IV 130 160 160 Intake, Oral 50 200 480 400 600 Output, Other 1 Patient 115 lb Weight Physical Exam: She is in no distress HEENT exam is normal Chest reveals decreased breath sounds but no rales, rhonchi or wheezing Heart reveals irregular rhythm and no murmurs Extremities reveal no edema Current Medications: Current Medications Sig/Kirill Start time Last Medication Dose Route Stop Time Status Admin Acetaminophen 650 MG Q6P PRN 08/31 0545 AC PO Albuterol Sulfate 3 ML Q4P PRN 09/03 1100 AC 09/03 INH 1636 Albuterol Sulfate 3 ML BID 08/31 1000 DC 09/01 INH 1050 Albuterol Sulfate 2 PUF Q4P PRN 08/31 0600 AC INH Albuterol Sulfate 3 ML Q4P PRN 08/31 0600 DC INH Apixaban 5 MG BID 09/04 1000 AC 09/04 PO 0911 Benzonatate 100 MG TID 09/02 1003 AC 09/04 PO 0912 Budesonide/ 2 PUF BID 08/31 1000 AC 09/04 Formoterol Fumarate INH 0912 Diltiazem HCl 60 MG BID 09/02 1206 AC 09/04 PO 0911 Docusate Sodium 100 MG DAILY NEEDED PRN 09/03 2030 AC 09/03 PO 2109 Dronedarone 400 MG BID 09/02 1205 AC 09/04 PO 0911 Heparin Sodium 25,000 UNIT Q24H 09/01 1430 DC 09/03 (Porcine) IV 1627 Sodium Chloride 500 ML Hydromorphone HCl 0.5 MG Q4P PRN 08/31 0545 AC IV Ketorolac 15 MG Q6P PRN 08/31 0545 AC Tromethamine IV 09/05 0544 Omeprazole 20 MG DAILY AC 09/04 0738 AC 09/04 PO 0910 Ondansetron HCl 4 MG ONCE ONE 09/04 0745 DC 09/04 PO 09/04 0746 0910 Patient Medication 1 UNIT ONE NR 09/04 0800 AC Teaching ED 09/04 1400 Prednisone 10 MG DAILY 09/06 1000 AC PO 09/09 0959 Prednisone 20 MG DAILY 09/03 1000 AC 09/04 PO 09/06 0959 0911 Sodium Chloride 2 SPRAY TIDPRN 08/31 1845 AC 09/01 MERLE 0949 Tiotropium [place] 1 PUF DAILY 08/31 1000 AC 09/04 INH 0912 Results Last 48 Hrs of Labs/Mics: Laboratory Tests 09/04/16 0940: APTT 77 H 09/04/16 0626: CBC w Diff Pending, WBC Pending, RBC Pending, Hgb Pending, Hct Pending, MCV Pending, MCH Pending, RDW Pending, Plt Count Pending, MPV Pending, Gran % Pending, Lymphocytes % Pending, Monocytes % Pending, Eosinophils % Pending, Basophils % Pending, Absolute Granulocytes Pending, Absolute Lymphocytes Pending , Absolute Monocytes Pending, Absolute Eosinophils Pending, Absolute Basophils Pending, PUBS MCHC Pending 09/04/16 0115: APTT 110 *H 09/03/16 1425: CBC w Diff MAN DIFF ORDERED, RBC 4.81, MCV 87.2, MCH 29.0, RDW 14.9 H, MPV 7.7, Gran % 95.4 H, Lymphocytes % 1.6 L, Monocytes % 2.9, Eosinophils % 0.1, Basophils % 0 L, Absolute Granulocytes 9.0 H, Absolute Lymphocytes 0.1 L, Absolute Monocytes 0.3, Absolute Eosinophils 0, Absolute Basophils 0, Platelet Estimate VERIFIED BY SMEAR, Anisocytosis 1+, PUBS MCHC 33.2 09/03/16 1251: APTT 87 H 09/03/16 0050: APTT 61 H 09/02/16 1705: APTT 60 H 09/02/16 1218: TSH Cancelled, Free T4 Cancelled Recent Imaging Studies: CONCLUSIONS Normal global left ventricular size, wall thickness, systolic function with no obvious regional wall motion abnormalities. The mitral valve is normal in structure and function. The left atrium is normal in size. Interatrial septal aneurysm. Structurally normal aortic valve without significant sclerosis or stenosis. Right ventricular systolic pressure estimated to be mildly elevated at 35-40 mmHg. Edil Plunkett M.D. (Electronically Signed) Final Date: 04 September 2016 09:55 Assessment/Plan Assessment/Plan The patient is relatively stable. However she is back in atrial fibrillation at this time. She is on appropriate rate limiting and anticoagulant medications. Her echocardiogram did not show any major abnormalities. I recommend keeping her on the same regimen. If her heart rate is on the high side and we can always increase her Cardizem. Hopefully she will convert back to sinus rhythm, but in view of the recurrence of atrial fibrillation she should stay on anticoagulation for now. From a cardiac standpoint she can be discharged on her current regimen when cleared by pulmonary. Continue telemetry? Yes
[2016-09-04] MEDS ORDERED: OMEPRAZOLE20 M2 PO (15:05)
[2016-09-04] MEDS ORDERED: MULTAQ400 M1 PO (15:05)
[2016-09-04] MEDS ORDERED: CARDIZEM60 M1 PO (15:05)
[2016-09-04] MEDS ORDERED: PREDNISONE10 M2 PO (15:05)
[2016-09-04] MEDS ORDERED: ELIQUIS5 M1 PO (15:05)
--- NOTE | 2016-09-04 15:12 | Patient Discharge Instructions ---
Discharge Instructions General Discharge Information Special Instructions: -Please follow up with your primary care physician within one week after discharge -Please follow up with reliability technologist Dr. Plunkett with in 1 week after discharge -Please follow up with lung doctor Dr. Guevara with in 1 week after discharge Acute Coronary Syndrome Inclusion Criteria At DC or during hospital stay patient has or had the following: ACS DIAGNOSIS No Discharge Core Measures Meds if any: Prescribed or Continued at Discharge Meds if any: NOT Prescribed or Continued at Discharge Congestive Heart Failure Inclusion Criteria At DC or during hospital stay patient has or had the following: CHF DIAGNOSIS No Discharge Core Measures Meds if any: Prescribed or Continued at Discharge Meds if any: NOT Prescribed or Continued at Discharge Cerebrovascular accident Inclusion Criteria At DC or during hospital stay patient has or had the following: CVA/TIA Diagnosis No Discharge Core Measures Meds if any: Prescribed or Continued at Discharge Meds if any: NOT Prescribed or Continued at Discharge Venous thromboembolism Inclusion Criteria VTE Diagnosis No VTE Type NONE VTE Confirmed by (Test) NONE Discharge Core Measures - Per Current guidelines, there needs to be overlap - treatment for the first 5 days of Warfarin therapy. - If discharged on Warfarin prior to 5 days of - overlap therapy, the patient will need to be - assessed for post discharge needs including - *Post discharge parental anticoagulation - *Warfarin and/or parental anticoagulation education - *Follow up date to check INR post discharge At least 5 days overlap therapy as Inpatient Yes Meds if any: Prescribed or Continued at Discharge Note: Overlap Therapy is Warfarin and Anticoagulant Meds if any: NOT Prescribed or Continued at Discharge
[2016-09-04 16:11] VITALS: BP 100/56
[2016-09-04 22:02] VITALS: BP 112/60
[2016-09-05 00:02] VITALS: BP 120/70
--- NOTE | 2016-09-05 07:33 | PN- Housestaff ---
Subjective Follow-up For: New onset atrial fibrillation Acute on chronic respiratory failure COPD exacerbation Tele-Events Since Last Visit: Sinus rhythm, later converted to atrial fibrillation, heart rate 68-79 No events Subjective: Patient was seen and examined this morning, no overnight events reported by the patient or the nurses. No acute distress, vital signs are stable. Well- corticated 8 with the patient case coordinator regarding the walker and the wheelchair. Review of Systems Constitutional: Reports: no symptoms. Objective Last 24 Hrs of Vital Signs/I&O Vital Signs Date Time Temp Pulse Resp B/P Pulse O2 O2 Flow FiO2 Ox Delivery Rate 09/05 1530 97.6 78 20 92/78 92 Nasal 2.0L Cannula 09/05 1110 96 Nasal 2.0L Cannula 09/05 0907 110 118/64 09/05 0907 110 118/64 09/05 0800 Nasal 2.0L Cannula 09/05 0800 98.1 97 20 118/64 93 Nasal Cannula 09/05 0417 Nasal 2.0L Cannula 09/05 0002 97.6 72 20 120/70 91 Nasal 2.0L Cannula 09/05 0000 Nasal 2.0L Cannula 09/04 2202 77.0 77 18 112/60 98 Nasal 2.0L Cannula 09/04 2043 77 112/60 09/04 2043 77 112/60 09/04 1928 94 Nasal 2.0L Cannula Intake & Output 09/05 1600 09/05 0800 09/05 0000 Intake Total 705 240 740 Output Total Balance 705 240 740 Intake, IV 0 Intake, Oral 705 240 740 Number 0 Bowel Movements Physical Exam General Appearance: Alert, Oriented X3, Cooperative, No Acute Distress Skin: No Rashes, No Breakdown, No Significant Lesion HEENT: Atraumatic, PERRLA, EOMI, Mucous Membr. moist/pink Neck: Supple Cardiovascular: Regular Rate, Normal S1, Normal S2, No Murmurs Lungs: Clear to Auscultation, Normal Air Movement Abdomen: Normal Bowel Sounds, Soft, No Tenderness Neurological: Normal Speech, Strength at 5/5 X4 Ext, Normal Tone, Sensation Intact, Cranial Nerves 3-12 NL, Reflexes 2+ Extremities: No Clubbing, No Cyanosis, No Edema, Normal Pulses Assessment/Plan Assessment: Ms. Aldana is a pleasant 76 year old female with PMH COPD on 2 L NC followed by Dr. Guevara and lung cancer s/p radiation with Dr. Sethi who presented to [facility] on 08/31/16 with chief complaint of worsening shortness of breath and chest heaviness since the day prior to admission. Patient noted increased wheezing and labored breathing for the 24 hours prior to admission with cough productive of clear phlegm. She denied fever, chills, nausea, vomiting and palpiations. In the ED: Vital signs showed T 100.8, HR 119, RR 22, BP 170/90 and O2 saturation of 97% on RA. Labs showed WBC count 10.2, hemoglobin 15.2, hematocrit 46.0, platelet count 324. ABG showed 7.42/37/79/23. Sodium 136, potassium 5.0, chloride 96, BUN 13 and creatinine 0.6. Glucose is 144. CXR showed emphysema without consolidation. EKG showed sinus tachycardia. Problem list - * Atrial fibrillation with RVR, converted to normal sinus rhythm * Acute on chronic respiratory failure secondary to COPD exacerbation * Lung cancer s/p radiation therapy * Osteopenia * Pulmonary hypertension Plan - * We will continue telemetry monitoring * Patient's sputum is growing Pseudomonas nausea, but she is clinically afebrile. As per attending will watch off antibiotics, If she started having fever, then we will place ID consult * Continue Multaq 400mg OD and Tabet, increase Cardizem to 90 milligrams by mouth twice a day as per cardiology * Continue Eliquis 5 mg twice a day * We'll keep patient on oxygen with target SPO2 more than 92% on the patient is on home oxygen 2 L * Continue her on tapering doses of prednisone as advised by Dr. Peralta, 20mg for 3 days, 10 mgs, for 3 days than stop. * TRC/nebulization * Patient will follow up closely with radiation oncologist Dr. Sethi after discharge for continued care,for lung cancer * Thyroid function within normal * FULL CODE * DVTP: Eliquis * Diet: Regular * Mild pain pathway Problem List: 1. Atrial fibrillation 2. History of lung cancer 3. Acute exacerbation of chronic obstructive pulmonary disease (COPD) Pain Ratin Pain Location: N/A Pain Goal: Pain 4 or less Pain Plan: Mild pain pathway Tomorrow's Labs & Rationales: Patient is for discharge
[2016-09-05 08:00] VITALS: BP 118/64
--- NOTE | 2016-09-05 08:18 | PN- Pulmonary ---
Subjective HPI/Critical Care Issues: Patient's respiratory status is improved shortness of breath is improved Objective Current Medications: Current Medications Sig/Kirill Start time Last Medication Dose Route Stop Time Status Admin Acetaminophen 650 MG Q6P PRN 08/31 0545 AC PO Albuterol Sulfate 3 ML Q4P PRN 09/03 1100 AC 09/05 INH 0416 Albuterol Sulfate 2 PUF Q4P PRN 08/31 0600 AC INH Apixaban 5 MG BID 09/04 1000 AC 09/04 PO 2043 Benzonatate 100 MG TID 09/02 1003 AC 09/04 PO 2043 Budesonide/ 2 PUF BID 08/31 1000 AC 09/04 Formoterol Fumarate INH 2044 Diltiazem HCl 60 MG BID 09/02 1206 AC 09/04 PO 2043 Docusate Sodium 100 MG DAILY NEEDED PRN 09/03 2030 AC 09/03 PO 2109 Dronedarone 400 MG BID 09/02 1205 AC 09/04 PO 2043 Heparin Sodium 25,000 UNIT Q24H 09/01 1430 DC 09/03 (Porcine) IV 1627 Sodium Chloride 500 ML Hydromorphone HCl 0.5 MG Q4P PRN 08/31 0545 AC IV Ketorolac 15 MG Q6P PRN 08/31 0545 DC Tromethamine IV 09/05 0544 Omeprazole 20 MG DAILY AC 09/04 0738 AC 09/04 PO 0910 Patient Medication 1 UNIT ONE NR 09/04 0800 DC Teaching ED 09/04 1400 Prednisone 10 MG DAILY 09/06 1000 AC PO 09/09 0959 Prednisone 20 MG DAILY 09/03 1000 AC 09/04 PO 08 0959 0911 Sodium Chloride 2 SPRAY TIDPRN 08/31 1845 AC 09/01 MERLE 0949 Tiotropium [place] 1 PUF DAILY 08/31 1000 AC 09/04 INH 0912 Vital Signs & I&O Last 24 Hrs of Vitals and I&O: Vital Signs Date Time Temp Pulse Resp B/P Pulse O2 O2 Flow FiO2 Ox Delivery Rate 09/05 0417 Nasal 2.0L Cannula 09/05 0002 97.6 72 20 120/70 91 Nasal 2.0L Cannula 09/05 0000 Nasal 2.0L Cannula 09/04 2201 77.0 77 18 112/60 98 Nasal 2.0L Cannula 09/04 2042 77 112/60 02/06 2043 77 112/60 09/04 1928 94 Nasal 2.0L Cannula 09/04 1611 97.3 76 20 100/56 96 09/04 1355 96 Nasal 2.0L Cannula 09/04 0911 74 116/74 09/04 0911 74 116/74 09/04 0850 98.0 74 20 116/74 97 Nasal 2.0L Cannula Intake & Output 09/05 1600 09/05 0800 09/05 0000 Intake Total 240 740 Output Total Balance 240 740 Intake, IV 0 Intake, Oral 240 740 Number 0 Bowel Movements Oxygen saturation 2 L bearing between 91 and 98% temperature chest shows diminished breath sounds are no wheezes or crackles heard cardiac exam shows a regular S1 and S2. Impression/Plan Impression/Plan Impression/Plan: 76-year-old woman with severe oxygen-dependent COPD admitted with increased shortness of breath likely due to COPD exacerbation. Transient episode of atrial fibrillation appears to have resolved Recommendations: Improved respiratory status. Patient is stable for discharge from respiratory standpoint. Complete prednisone taper. Office follow-up next week.
--- NOTE | 2016-09-05 08:40 | NUR ---
Physical Therapy. Pt cleared for home by PT yesterday. MD notifed this PT that pt had concerns regarding equipment at home. This PT spoke with pt who reports she would feel more confident if she had a transport w/c to assist with MD visits as well as a RW with a basket to assist with transporting her 02 tank. This PT agrees that the above stated equipment would be beneficial to increase pt's safety and mobility. Pt reports that she has no other concerns with her d/c to home.
[2016-09-05 09:27] LABS: ABSOLUTE BASOPHIL COUNT 0 /CUMM (0.0-0.2); ABSOLUTE EOSINOPHIL COUNT 0.1 /CUMM (0.0-0.7); ABSOLUTE GRANULOCYTE CT 4.4 /CUMM (1.4-6.5); ABSOLUTE LYMPH COUNT 0.4 /CUMM (1.2-3.4); ABSOLUTE MONOCYTE COUNT 0.7 /CUMM (0.10-0.60); BASOPHIL % 0 % (0.0-2.0); EOSINOPHIL % 1.8 % (0-5); GRANULOCYTE % 77.9 % (42.2-75.2); HEMATOCRIT 40.7 % (37-47); MEAN CORPUSCULAR HGB CONC 33.2 G/DL (33.0-37.0); MEAN CORPUSCULAR VOLUME 87.4 FL (81.0-99.0); MEAN PLATELET VOLUME 7.8 FL (7.4-10.4); PLATELET COUNT 318 /CUMM (130-400); RBC DISTRIBUTION WIDTH 15.3 % (11.5-14.5); RED BLOOD CELL CT 4.65 /CUMM (4.20-5.40); WHITE BLOOD CELL COUNT 5.6 /CUMM (4.8-10.8)
--- NOTE | 2016-09-05 10:18 | PN- Cardiology ---
Subjective Subjective: The patient is feeling better. She is wanting to go home. She is not having any chest pain. Her breathing is acceptable. She remains in atrial fibrillation. Her heart rate is in the low 100s. She is on Cardizem 60 mg twice a day and Eliquis. Objective Vital Signs and I&Os Vital Signs Date Time Temp Pulse Resp B/P Pulse O2 O2 Flow FiO2 Ox Delivery Rate 09/05 0907 110 118/64 09/05 0907 110 118/64 09/05 0800 Nasal 2.0L Cannula 09/05 0800 98.1 97 20 118/64 93 Nasal Cannula 09/05 0417 Nasal 2.0L Cannula 09/05 0002 97.6 72 20 120/70 91 Nasal 2.0L Cannula 09/05 0000 Nasal 2.0L Cannula 09/04 2202 77.0 77 18 112/60 98 Nasal 2.0L Cannula 09/04 2043 77 112/60 09/04 2043 77 112/60 09/04 1928 94 Nasal 2.0L Cannula 09/04 1611 97.3 76 20 100/56 96 09/04 1355 96 Nasal 2.0L Cannula Intake & Output 09/05 1600 09/05 0800 09/05 0000 09/04 1600 09/04 0800 09/04 0000 Intake Total 240 740 817.32 180 200 Output Total Balance 240 740 817.32 180 200 Intake, IV 0 52.32 130 Intake, Oral 240 740 765 50 200 Number 0 Bowel Movements Patient 115 lb Weight Physical Exam: She is in no distress. She is able to talk in short sentences. HEENT exam is normal Chest reveals decreased breath sounds Heart is irregular with no murmurs Extremities no edema Current Medications: Current Medications Sig/Kirill Start time Last Medication Dose Route Stop Time Status Admin Acetaminophen 650 MG Q6P PRN 08/31 0545 AC PO Albuterol Sulfate 3 ML Q4P PRN 09/03 1100 AC 09/05 INH 0416 Albuterol Sulfate 2 PUF Q4P PRN 08/31 0600 AC INH Apixaban 5 MG BID 09/04 1000 AC 09/05 PO 0907 Benzonatate 100 MG TID 09/02 1003 AC 09/05 PO 0907 Budesonide/ 2 PUF BID 08/31 1000 AC 09/05 Formoterol Fumarate INH 0908 Diltiazem HCl 60 MG BID 09/02 1206 AC 09/05 PO 0907 Docusate Sodium 100 MG DAILY NEEDED PRN 09/03 2030 AC 09/03 PO 2109 Dronedarone 400 MG BID 09/02 1205 AC 09/05 PO 0907 Hydromorphone HCl 0.5 MG Q4P PRN 08/31 0545 AC IV Ketorolac 15 MG Q6P PRN 08/31 0545 DC Tromethamine IV 09/05 0544 Omeprazole 20 MG DAILY AC 09/04 0738 AC 09/04 PO 0910 Patient Medication 1 UNIT ONE NR 09/04 0800 DC Teaching ED 09/04 1400 Prednisone 10 MG DAILY 09/06 1000 AC PO 09/09 0959 Prednisone 20 MG DAILY 09/03 1000 AC 09/05 PO 09/06 0959 0907 Sodium Chloride 2 SPRAY TIDPRN 08/31 1845 AC 09/01 MERLE 0949 Tiotropium [place] 1 PUF DAILY 08/31 1000 AC 09/05 INH 0907 Results Last 48 Hrs of Labs/Mics: Laboratory Tests 09/05/16 0729: Anion Gap 5, Estimated GFR > 60, BUN/Creatinine Ratio 20.0, CBC w Diff NO MAN DIFF REQ, RBC 4.65, MCV 87.4, MCH 29.0, RDW 15.3 H, MPV 7.8, Gran % 77.9 H, Lymphocytes % 7.2 L, Monocytes % 13.1 H, Eosinophils % 1.8, Basophils % 0 L, Absolute Granulocytes 4.4, Absolute Lymphocytes 0.4 L, Absolute Monocytes 0.7 H, Absolute Eosinophils 0.1, Absolute Basophils 0, PUBS MCHC 33.2 09/04/16 0940: APTT 77 H 09/04/16 0626: CBC w Diff NO MAN DIFF REQ, RBC 4.73, MCV 87.7, MCH 29.1, RDW 15.4 H, MPV 8.0, Gran % 83.9 H, Lymphocytes % 6.1 L, Monocytes % 9.1, Eosinophils % 0.7, Basophils % 0.2, Absolute Granulocytes 4.6, Absolute Lymphocytes 0.3 L, Absolute Monocytes 0.5, Absolute Eosinophils 0, Absolute Basophils 0, PUBS MCHC 33.2 09/04/16 0115: APTT 110 *H 09/03/16 1425: CBC w Diff MAN DIFF ORDERED, RBC 4.81, MCV 87.2, MCH 29.0, RDW 14.9 H, MPV 7.7, Gran % 95.4 H, Lymphocytes % 1.6 L, Monocytes % 2.9, Eosinophils % 0.1, Basophils % 0 L, Absolute Granulocytes 9.0 H, Absolute Lymphocytes 0.1 L, Absolute Monocytes 0.3, Absolute Eosinophils 0, Absolute Basophils 0, Platelet Estimate VERIFIED BY SMEAR, Anisocytosis 1+, PUBS MCHC 33.2 09/03/16 1251: APTT 87 H Assessment/Plan Assessment/Plan The patient is relatively stable. However she remains in atrial fibrillation at this time. She is on appropriate rate limiting and anticoagulant medications. Her heart rate is borderline. Her echocardiogram did not show any major abnormalities. I recommend discharging her on Cardizem 90 mg twice a day for better heart rate control. She is tolerating a full dose of Eliquis and we can discharge her on that dose at this time. From a cardiac standpoint she can be discharged on the above regimen when cleared by pulmonary. She agrees to follow up in the office if arrangements can be made for her transportation. Case management should be consulted for help in this. Continue telemetry? No
[2016-09-05 15:30] VITALS: BP 92/78
[2016-09-05] MEDS ORDERED: CARDIZEM60 M1 PO (17:04)
[2016-09-05] MEDS ORDERED: DILTIAZEM 12HR90 MG PO (17:10)
--- NOTE | 2016-09-05 18:34 | PN- Att Addend ---
Attending Addendum Attending Brief Note Patient feeling and looking better today home in better spirits today. Vital signs are stable she's a febrile no major changes in heart rate or physical exam with arrangements started for patient to be discharged home with home care will get also a walker and a transport wheelchair. Patient has her oxygen at home. To follow with Dr. Elliott Richardson and Dr. Sethi. Current Medications Sig/Kirill Start time Last Medication Dose Route Stop Time Status Admin Acetaminophen 650 MG Q6P PRN 08/31 0545 DCD PO Albuterol Sulfate 3 ML Q4P PRN 02 1100 DCD 09/05 INH 1107 Albuterol Sulfate 2 PUF Q4P PRN 08/31 0600 DCD INH Apixaban 5 MG BID 09/04 1000 DCD 09/05 PO 0907 Benzonatate 100 MG TID 09/02 1003 DCD 09/05 PO 1610 Budesonide/ 2 PUF BID 08/31 1000 DCD 09/05 Formoterol Fumarate INH 0908 Diltiazem HCl 60 MG BID 09/02 1206 DCD 09/05 PO 0907 Docusate Sodium 100 MG DAILY NEEDED PRN 09/03 2030 DCD 09/03 PO 2109 Dronedarone 400 MG BID 09/02 1205 DCD 09/05 PO 0907 Hydromorphone HCl 0.5 MG Q4P PRN 08/31 0545 DCD IV Ketorolac 15 MG Q6P PRN 08/31 0545 DC Tromethamine IV 09/05 0544 Omeprazole 20 MG DAILY AC 09/04 0738 DCD 09/04 PO 0910 Patient Medication 1 ED .STK-MED ONE 09/05 1338 ME Teaching ED 09/05 1339 Prednisone 10 MG DAILY 09/06 1000 DCD PO 09/09 0959 Prednisone 20 MG DAILY 09/03 1000 DCD 09/05 PO 09/06 0959 0907 Sodium Chloride 2 SPRAY TIDPRN 08/31 1845 DCD 09/01 MERLE 0949 Tiotropium [place] 1 PUF DAILY 08/31 1000 DCD 02 INH 0907 Laboratory Tests 09/05/16 0729: Anion Gap 5, Estimated GFR > 60, BUN/Creatinine Ratio 20.0, CBC w Diff NO MAN DIFF REQ, RBC 4.65, MCV 87.4, MCH 29.0, RDW 15.3 H, MPV 7.8, Gran % 77.9 H, Lymphocytes % 7.2 L, Monocytes % 13.1 H, Eosinophils % 1.8, Basophils % 0 L, Absolute Granulocytes 4.4, Absolute Lymphocytes 0.4 L, Absolute Monocytes 0.7 H, Absolute Eosinophils 0.1, Absolute Basophils 0, PUBS MCHC 33.2 Vital Signs Date Time Temp Pulse Resp B/P Pulse O2 O2 Flow FiO2 Ox Delivery Rate 09/05 1530 97.6 78 20 92/78 92 Nasal 2.0L Cannula 09/05 1110 96 Nasal 2.0L Cannula Intake & Output 09/05 1600 Intake Total 705 Output Total Balance 705 Intake, Oral 705
--- NOTE | 2016-09-05 19:01 | Discharge Summary ---
Visit Information Visit Dates Admission Date: 08/31/16 Discharge Date: 09/05/16 Hospital Course Course Attending Physician: CHI LEY MD Primary Care Physician: CHI LEY MD Consulting Request: Consulting Specialty: Cardiology (and pulmonary) Consulting Physician: Drs. Edil Plunkett and Edil Richardson Reason for Consult: exacerbation of her COPD and onset of rapid atrial fibrillation Hospital Course: 76-year-old white female known history of COPD and emphysema, homebound having small exacerbations since April but for the last few days before admission she was very short of breath and the lab in the emergency room acute on chronic respiratory failure was admitted given IV steroids respiratory therapy. Was seen by Dr. Fischer and recommendations were given to her while in the hospital she developed rapid onset of atrial fibrillation, was seen by cardiology Dr. Plunkett transferred to telemetry treated with adenosine first and didn't respond then she was on a Cardizem drip at first responded to medication and was in sinus rhythm was started on Multag, today on went back into atrial fibrillation at that point was decided to keep on the Cardizem and given a de luna anticoagulant. Patient slowly improved and was stable enough from her heart and lungs to be discharged on the seventh, with home shelter oxygen prescription given for a walker and a transport wheelchair and follow with all the specialists and myself Complications: Episode of atrial fibrillation Allergies: Coded Allergies: levofloxacin (Mild, LEGS FELT TIGHT 01/18/16) clarithromycin (UNKNOWN - PT DOESNT REMEMBER WAS TOLD BY MD NOT TO TAKE 01/18/16 ) Significant Procedures: Patient had an echocardiogram Pertinent Lab Results: Laboratory Tests 09/05 0729 Chemistry Sodium (137 - 145 mmol/L) 139 Potassium (3.5 - 5.1 mmol/L) 4.7 Chloride (98 - 107 mmol/L) 101 Carbon Dioxide (22 - 30 mmol/L) 33 H Anion Gap (5 - 16) 5 BUN (7 - 17 mg/dL) 18 H Creatinine (0.5 - 1.0 mg/dL) 0.9 Estimated GFR (>60 ml/min) > 60 BUN/Creatinine Ratio (7 - 25 %) 20.0 Hematology CBC w Diff NO MAN DIFF REQ WBC (4.8 - 10.8 /CUMM) 5.6 RBC (4.20 - 5.40 /CUMM) 4.65 Hgb (12.0 - 16.0 G/DL) 13.5 Hct (37 - 47 %) 40.7 MCV (81.0 - 99.0 FL) 87.4 MCH (27.0 - 31.0 PG) 29.0 RDW (11.5 - 14.5 %) 15.3 H Plt Count (130 - 400 /CUMM) 318 MPV (7.4 - 10.4 FL) 7.8 Gran % (42.2 - 75.2 %) 77.9 H Lymphocytes % (20.5 - 51.1 %) 7.2 L Monocytes % (1.7 - 9.3 %) 13.1 H Eosinophils % (0 - 5 %) 1.8 Basophils % (0.0 - 2.0 %) 0 L Absolute Granulocytes (1.4 - 6.5 /CUMM) 4.4 Absolute Lymphocytes (1.2 - 3.4 /CUMM) 0.4 L Absolute Monocytes (0.10 - 0.60 /CUMM) 0.7 H Absolute Eosinophils (0.0 - 0.7 /CUMM) 0.1 Absolute Basophils (0.0 - 0.2 /CUMM) 0 PUBS MCHC (33.0 - 37.0 G/DL) 33.2 Laboratory Tests 09/05/16 0729: Anion Gap 5, Estimated GFR > 60, BUN/Creatinine Ratio 20.0, CBC w Diff NO MAN DIFF REQ, RBC 4.65, MCV 87.4, MCH 29.0, RDW 15.3 H, MPV 7.8, Gran % 77.9 H, Lymphocytes % 7.2 L, Monocytes % 13.1 H, Eosinophils % 1.8, Basophils % 0 L, Absolute Granulocytes 4.4, Absolute Lymphocytes 0.4 L, Absolute Monocytes 0.7 H, Absolute Eosinophils 0.1, Absolute Basophils 0, PUBS MCHC 33.2 09/04/16 0940: APTT 77 H 09/04/16 0626: CBC w Diff NO MAN DIFF REQ, RBC 4.73, MCV 87.7, MCH 29.1, RDW 15.4 H, MPV 8.0, Gran % 83.9 H, Lymphocytes % 6.1 L, Monocytes % 9.1, Eosinophils % 0.7, Basophils % 0.2, Absolute Granulocytes 4.6, Absolute Lymphocytes 0.3 L, Absolute Monocytes 0.5, Absolute Eosinophils 0, Absolute Basophils 0, PUBS MCHC 33.2 09/04/16 0115: APTT 110 *H 09/03/16 1425: CBC w Diff MAN DIFF ORDERED, RBC 4.81, MCV 87.2, MCH 29.0, RDW 14.9 H, MPV 7.7, Gran % 95.4 H, Lymphocytes % 1.6 L, Monocytes % 2.9, Eosinophils % 0.1, Basophils % 0 L, Absolute Granulocytes 9.0 H, Absolute Lymphocytes 0.1 L, Absolute Monocytes 0.3, Absolute Eosinophils 0, Absolute Basophils 0, Platelet Estimate VERIFIED BY SMEAR, Anisocytosis 1+, PUBS MCHC 33.2 09/03/16 1251: APTT 87 H 09/03/16 0050: APTT 61 H Laboratory Tests 08/31 08/31 0412 0410 Blood Gas pH (7.35 - 7.45 PH) 7.42 pCO2 (35 - 45 TORR) 37 pO2 (80 - 100 TORR) 79 L HCO3 (21 - 28 MEQ/L) 23 ABG O2 Sat (Measured) (>96.0 %) 94.0 L P-50 (Temp Corrected) Y Carboxyhemoglobin (1.5 - 5.0 %) 0.7 L O2 Concentration % 2 LPM Temperature (97.0 - 100.0 FARH) 100.8 H O2 Delivery Method N/C Chemistry Sodium (137 - 145 mmol/L) 136 L Potassium (3.5 - 5.1 mmol/L) 5.0 Chloride (98 - 107 mmol/L) 96 L Carbon Dioxide (22 - 30 mmol/L) 28 Anion Gap (5 - 16) 12 BUN (7 - 17 mg/dL) 13 Creatinine (0.5 - 1.0 mg/dL) 0.6 Estimated GFR (>60 ml/min) > 60 BUN/Creatinine Ratio (7 - 25 %) 21.7 Glucose (65 - 99 mg/dL) 144 H Calcium (8.4 - 10.2 mg/dL) 9.3 Total Bilirubin (0.2 - 1.3 mg/dL) 0.7 AST (14 - 36 U/L) 26 ALT (9 - 52 U/L) 27 Alkaline Phosphatase (<127 U/L) 105 Troponin I (< 0.11 ng/ml) 0.03 Vfa-V-Syuwqsonwfa Pept (<125 pg/mL) 185 H Total Protein (6.3 - 8.2 g/dL) 7.1 Albumin (3.5 - 5.0 g/dL) 4.3 Globulin (1.9 - 4.2 gm/dL) 2.8 Albumin/Globulin Ratio (1.1 - 2.2 %) 1.5 Coagulation D-Dimer (70 - 232 ng/ml) 397 H Hematology CBC w Diff MAN DIFF ORDERED WBC (4.8 - 10.8 /CUMM) 10.2 RBC (4.20 - 5.40 /CUMM) 5.29 Hgb (12.0 - 16.0 G/DL) 15.2 Hct (37 - 47 %) 46.0 MCV (81.0 - 99.0 FL) 86.9 MCH (27.0 - 31.0 PG) 28.7 RDW (11.5 - 14.5 %) 15.2 H Plt Count (130 - 400 /CUMM) 324 MPV (7.4 - 10.4 FL) 7.7 Gran % (42.2 - 75.2 %) 91.4 H Lymphocytes % (20.5 - 51.1 %) 2.7 L Monocytes % (1.7 - 9.3 %) 5.3 Eosinophils % (0 - 5 %) 0.3 Basophils % (0.0 - 2.0 %) 0.3 Absolute Granulocytes (1.4 - 6.5 /CUMM) 9.4 H Segmented Neutrophils (42.2 - 75.2 %) 86 H Band Neutrophils (0.0 - 5.0 %) 3 Absolute Lymphocytes (1.2 - 3.4 /CUMM) 0.3 L Lymphocytes (20.5 - 51.1 %) 4 L Monocytes (1.7 - 9.3 %) 5 Absolute Monocytes (0.10 - 0.60 /CUMM) 0.5 Absolute Eosinophils (0.0 - 0.7 /CUMM) 0 Basophils (0.0 - 2.0 %) 2 Absolute Basophils (0.0 - 0.2 /CUMM) 0 Platelet Estimate (ADEQUATE) ADEQUATE Normochromic RBCs VERIFIED Poikilocytosis 1+ Ovalocytes 1+ PUBS MCHC (33.0 - 37.0 G/DL) 33.0 Miscellaneous Phlebotomy Draw Site RIGHT RADIAL Other Body Source Fld Total RBCs Counted (%) 100 SERVICE DATE: 08/31/16 EXAM TYPE: CAT - CTA CHEST EXAMINATION: CT ANGIOGRAM CHEST CLINICAL INFORMATION: Sinus tachycardia. Dyspnea. Suspected pulmonary embolism. COMPARISON: Baseline CT of the chest done on 05/21/2013, CTA of the chest done on 04/27/2015 , and most recent prior CT of the chest done on 05/03/2016. TECHNIQUE: A noncontrast localizer was performed, followed by the administration of 95 mL Optiray [address] of the chest was then performed. Coronal and sagittal reformatted and MIP images of the chest were completed at the CT scanner and reviewed on the PACS workstation. No adverse effects were reported. DLP: 259.94 mGy-cm. FINDINGS: VISUALIZED NECK: Unremarkable. LUNGS: Extensive emphysematous changes are present throughout the lung piña bilaterally with predominant involvement of both upper lobes. Curvilinear pleural parenchymal opacity associated with underlying nonspecific paramediastinal, PD aortic soft tissue density, thickening are noted at left upper lobe of the lung anteromedially abutting the anteromedial aspect of the superior anterior mediastinum and the adjacent part of the aorta, likely represent pleural parenchymal scar given the patient history of prior treatment for lung carcinoma. Compared to most recent prior study done on 05/03/2016, the curvilinear airspace disease abutting the anteromedial aspect of the left upper hemithorax appears more pronounced. If local recurrence is clinically suspected, follow-up whole-body PET CT scan may be considered for further clarification. No discrete measurable focal mass identified. The tracheobronchial tree appeared to be patent. MEDIASTINUM: The pulmonary artery as well as the right ventricle appear enlarged, consistent with pulmonary arterial hypertension, appears similar to prior study dated 04/27/2015. There is a no evidence of any pulmonary embolism present. There are no pathologically enlarged mediastinal, hilar lymphadenopathy seen. PLEURA: There is no pleural effusion. No pleural mass or thickening. AXILLA: No lymphadenopathy. UPPER ABDOMEN: There is a stable 0.5 cm focal hyper density identified within the spleen, unchanged since 04/27/2015, may represent an incidental hemangioma. BONES: Chronic compression fracture of T7 vertebral bodies present. Moderate diffuse osteopenia is noted. No significant change. IMPRESSION: 1. No CT evidence of pulmonary embolism is present. 2. Extensive emphysematous disease is present throughout both lung piña with predominant involvement of both upper lobes with superimposed somewhat curvilinear pleural parenchymal disease at left upper lobe of the lung abutting the anterior medial aspect of the adjacent mediastinum including the arch of the aorta. The appearance is slightly more pronounced since the prior study dated 05/03/2016. Given the patient prior history of known left-sided upper lobar lung malignancy, if local disease recurrence is clinically suspected, follow-up whole-body PET CT scan may be considered for further clarification, although there is no discrete measurable mass is visualized on the current study. 3. Evidence of pulmonary arterial hypertension, appear chronic likely represent changes secondary to emphysematous disease. 4. Stable chronic compression fracture of T7 vertebral body, of uncertain etiology. Moderate diffuse osteopenia. SERVICE DATE: 08/31/16-402 EXAM TYPE: RAD - XRY-PORTABLE CHEST XRAY EXAMINATION: CHEST 1 VIEW CLINICAL INFORMATION: Dyspnea. COMPARISON: 05/01/2016. TECHNIQUE: An AP view of the chest is provided. FINDINGS: The cardiac silhouette is not enlarged. The mediastinal and hilar contours are unremarkable. There are neither pleural effusions nor pneumothoraces. Again identified is severe emphysema. There is vascular crowding noted within both lung bases. There is no acute airspace disease. The osseous structures are unremarkable. IMPRESSION: No consolidations. Severe emphysema. SERVICE DATE: 09/03/16- EXAM TYPE: CARD - ECHOCARDIOGRAM YISEL JAUREGUI Age: 76 : 1940 Gender: F Exam Date: 09/03/2016 09:34 Exam Location: [place] Ht (in): 64 Wt (lb): 115 BSA: 1.53 BP: 104 / 60 Ordering Physician: NELSON ALMONTE MD Referring Physician: Edil Plunkett MD Chief, SoC Technologist: Raquel Calvin RDCS Room Number: 171 Indications: AFIB/FLUTTER Rhythm: Technical Quality: Good FINDINGS Left Ventricle Normal global left ventricular size, wall thickness, systolic function with no obvious regional wall motion abnormalities. Left ventricular ejection fraction is estimated at >65 %. Normal left ventricular diastolic filling pattern for age. Right Ventricle The right ventricle is normal in size and function. Right Atrium The right atrium is normal in size. Left Atrium The left atrium is normal in size. Interatrial septal aneurysm. Mitral Valve The mitral valve is normal in structure and function. There is mild mitral regurgitation. Aortic Valve Structurally normal aortic valve without significant sclerosis or stenosis. There is no aortic regurgitation. Tricuspid Valve The tricuspid valve is normal in structure and function. There is mild tricuspid regurgitation. Right ventricular systolic pressure estimated to be mildly elevated at 35-40 mmHg. Pulmonic Valve Structurally normal pulmonic valve. There is trace pulmonic regurgitation. Pericardium Normal pericardium without effusion. No pleural effusion. Great Vessels Normal aortic root dimension. The aortic arch and great vessels are well seen and are normal. CONCLUSIONS Normal global left ventricular size, wall thickness, systolic function with no obvious regional wall motion abnormalities. The mitral valve is normal in structure and function. The left atrium is normal in size. Interatrial septal aneurysm. Structurally normal aortic valve without significant sclerosis or stenosis. Right ventricular systolic pressure estimated to be mildly elevated at 35-40 mmHg. Disposition Summary Disposition Principal Diagnosis: COPD exacerbation Acute on chronic respiratory failure Rapid atrial fibrillation Additional Diagnosis: Emphysema Depression Lung cancer Discharge Disposition: home health services Discharge Instructions General Discharge Information Code Status: Full Code Patient's Diet: As tolerated Patient's Activity: Self-limited Follow-Up Instructions/Appts: Follow-up with Dr. Elliott Richardson and Edil Plunkett MD in Dr. Sethi Medications at Discharge Discharge Medications: Continue taking these medications: Fluticasone/Salmeterol (Advair 250-50 Diskus) 1 EACH BLST.W.DEV 1 Puff Inhale through mouth TWICE DAILY Instructions: Reason to Stop at ADM: [facility] NEB ORDERS Comments: Last Taken: 09/05/16 Time: 9 AM SYMIBICORT GIVEN SUBSTITUTION Tiotropium [place] (Spiriva) 18 MCG CAP.W.DEV 1 Capsule Inhale through mouth DAILY Instructions: Reason to Stop at ADM: TR NEB ORDER Comments: Last Taken: 09/05/16 Time: 9 AM Sodium Chloride ([place] Saline 50 Ml) 50 ML AMOS 2 Drop Both sides of nose TWICE DAILY as needed for CONGESTION Comments: PER PT Albuterol Sulfate (Albuterol Sulfate) 0.63 MG/3 ML VIAL.NEB 1 Vial Inhale Solution THREE TIMES DAILY Instructions: Reason to Stop at ADM:TR ORDERS Comments: Last Taken: 09/05/16 Time: 11 AM Albuterol Sulfate (Proair Respiclick) 90 MCG AER.POW.BA 2 PUFF Inhale through mouth EVERY 4-6 HOURS as needed for COPD Qty = 1 Instructions: Reason to Stop at ADM: [facility] NEB ORDERS Comments: NOT GIVEN WHILE IN HOSPITAL Alprazolam (Alprazolam) 0.25 MG TABLET 1 Tablet ORAL as needed for ANXIETY/SLEEP Qty = 20 Comments: NOT GIVEN IN HOSPITAL Start taking the following new medications: Apixaban (Eliquis) 5 MG TABLET 5 Milligram ORAL TWICE DAILY Qty = 60 No Refills Comments: Last Taken: 09/05/16 Time: 9AM Dronedarone HCl (Multaq) 400 MG TABLET 400 Milligram ORAL TWICE DAILY Qty = 60 No Refills Comments: Last Taken: 09/05/16 Time: 9AM Omeprazole (Omeprazole) 20 MG CAPSULE.DR 20 Milligram ORAL DAILY BEFORE BREAKFAST Qty = 30 No Refills Comments: Last Taken: 09/04/16 Time: 9AM Prednisone (Prednisone) 10 MG TABLET 1 Milligram ORAL DAILY Qty = 3 No Refills Instructions: Please take 1 tab daily for 3 days 09/06, 09/07, 09/08 then stop Comments: START TOMORROW 09/06/16 Diltiazem HCl (Diltiazem 12HR ER) 90 MG CAP.ER.12H 90 Milligram ORAL TWICE DAILY Qty = 60 No Refills Copies To: SALLY CLIFFORD,VICKIE Reyes; LÓPEZ CLIFFORD,EDIL Torres; MARRY CLIFFORD,EDIL Morgan; CHI LEY MD Attending MD Review Statement Documenting Attending: CHI LEY MD
== END 2016-09-05 17:35 | disposition home health service (06) | DRG 190 ==
LOC: ENRESERVTM → ENRESERVDT → ERH 03:49 → 2NA 05:17 → 1NO 05:17 → ENPENDDIS 05:17 → ERHI 05:17 → 2NA 06:19 → 1NO 09-01 13:51
PROVIDERS: Orthopaedic Surgery; Pediatrics; Student in an Organized Health Care Education/Training Program; ADMIT Internal Medicine
DX: J44.1 Chronic obstructive pulmonary disease with (acute) exacerbation (principal); J96.21 Acute and chronic respiratory failure with hypoxia; R64 Cachexia; Z68.1 Body mass index [BMI] 19.9 or less, adult; I48.91 Unspecified atrial fibrillation; Z85.118 Personal history of other malignant neoplasm of bronchus and lung; Z99.81 Dependence on supplemental oxygen
CPT/HCPCS: 1NP; 2NAP; 36415; 82436; 87040; 87070; 87804; 87804-59; 93005; 93010; 93306; 96374; 96375; 97161-GP; J0131; J0153; J0456; J0696; J1644; J1650; J2405; J2920; J2930; J3101; J3490; J7060; J7512

== ENCOUNTER 2016-10-14 07:24 | Emergency (ER) | payer OTHER ==
[~2016-10-14] VITALS: Ht 162.6 cm; Wt 49.9 kg
[~2016-10-14 07:24] MED LIST changes: +CARDIZEM60 M1 PO; +DILTIAZEM 12HR90 MG PO; +ELIQUIS5 M1 PO; +MULTAQ400 M1 PO; +OMEPRAZOLE20 M2 PO
--- NOTE | 2016-10-14 07:55 | ED DYSPNEA/ASTHMA COMPLAINT ---
History of Present Illness General Chief Complaint: Dyspnea (COPD, CHF, Other) Stated Complaint: SOB Source: patient Exam Limitations: no limitations Vital Signs & Intake/Output Vital Signs & Intake/Output Vital Signs Date Time Temp Pulse Resp B/P Pulse O2 O2 Flow FiO2 Ox Delivery Rate 10/14 1102 98.3 90 20 106/62 96 Nasal 2.0L Cannula 10/14 1100 96 Nasal 2.0L Cannula 10/14 0844 89 20 144/66 97 Nasal 2.0L Cannula 10/14 0814 99 Nasal 2.0L Cannula 10/14 0747 94 Nasal 2.0L Cannula 10/14 0732 98.2 93 20 135/72 95 Nasal 3.0L Cannula Allergies Coded Allergies: levofloxacin (Mild, LEGS FELT TIGHT 01/18/16) amoxicillin (ANAPHYLAXIS 10/14/16) clarithromycin (UNKNOWN - PT DOESNT REMEMBER WAS TOLD BY MD NOT TO TAKE 01/18/16 ) Reconcile Medications Albuterol Sulfate 0.63 MG/3 ML VIAL.NEB 1 Vial INH/AMOS TID COPD (Reported) Reason to Stop at ADM:[facility] ORDERS Albuterol Sulfate (Proair Respiclick) 90 MCG AER.POW.BA 2 PUFF INH Q4-6 PRN COPD Reason to Stop at ADM: [facility] NEB ORDERS Apixaban (Eliquis) 2.5 MG TABLET 1 TAB PO BID BLOOD THINNER (Reported) Diltiazem HCl (Diltiazem 12HR ER) 90 MG CAP.ER.12H 1 CAP PO DAILY HEART ( Reported) Dronedarone HCl (Multaq) 400 MG TABLET 400 MG PO BID Atrial fibrillation Fluticasone/Salmeterol (Advair 250-50 Diskus) 1 EACH BLST.W.DEV 1 PUF INH BID COPD (Reported) Reason to Stop at ADM: [facility] NEB ORDERS Prednisone (Deltasone) 20 MG TABLET 2 TAB PO DAILY ASTHMA BEGIN TOMORROW Sodium Chloride/Aloe Vera ([place] Saline Nasal Gel [place]) 22 ML SPRAY 2 GTT NASB BID PRN CONGESTION (Reported) Tiotropium [place] (Spiriva) 18 MCG CAP.W.DEV 1 CAP INH DAILY COPD (Reported) Reason to Stop at ADM: [facility] NEB ORDER Triage Note: PT TO ED WITH C/O INCREASED SOB. PT O2 DEPENDANT ON 2L VIA NC. PT STATES VISITING NURSE WAS THERE YESTERDAY AND TOLD HER THAT SHE WAS WHEEZING AND WAS TOLD TO USE HER INHALER. PT STATES THE WHEEZING CLEARED FOR JI A LITTLE BIT. PT USED NEB TREATMENT AND STATES SHE HAD SMALL AMOUNT OF YELLOW SPUTUM. PT 02 SAT 95 TO 97% NORMALY Triage Nurses Notes Reviewed? yes HPI: Presents for evaluation of worsening constant dyspnea that began suddenly yesterday. Patient states that she has been experiencing chest congestion and a loose sounding cough without phlegm production. The visiting nurse evaluated her yesterday recommended she use her rescue MDI. She felt better and was able to get to sleep. She awoke this morning feeling sweaty and dizzy. She states her shortness of breath worsens with exertion. She has had mild leg swelling but this seems more or less unchanged. She has experienced off and on wheezing. She called the paramedics who recommended she take a home nebulizer. She took a nebulizer at about 6:30 this morning with only minimal improvement. She is on chronic home oxygen therapy was recently diagnosed with atrial fibrillation in August of this year. She also has a history of presumably cured lung cancer. Past History Travel History Traveled to [place] past 21 day No Medical History Any Pertinent Medical History? 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 MOTHER FH: breast cancer Hx Contributory? No Review of Systems Review of Systems Constitutional: Reports: no symptoms. EENTM: Reports: no symptoms. Respiratory: Reports: see HPI. Cardiovascular: Reports: no symptoms. GI: Reports: no symptoms. Genitourinary: Reports: no symptoms. Musculoskeletal: Reports: no symptoms. Skin: Reports: no symptoms. Neurological/Psychological: Reports: no symptoms. Hematologic/Endocrine: Reports: no symptoms. Immunologic/Allergic: Reports: no symptoms. All Other Systems: Reviewed and Negative Physical Exam Physical Exam Respiratory: SEE BELOW Comments: Gen.: Well-nourished, well-developed, mild respiratory distress. Thin. Head: Normocephalic, atraumatic. Eyes: Normal inspection bilaterally Ears: Normal inspection bilaterally Nose: Normal inspection Throat/mouth : Moist mucosa Neck: Supple, full range of motion, no goiter Heart: Regular rate and rhythm, no murmurs rubs or gallops Lungs: Severely diminished breath sounds bilaterally with no wheezes rales or rhonchi, occasional loose sounding cough Chest: Nontender Back: Normal range of motion Abdomen: Soft, nontender, nondistended, normal bowel sounds Extremities: Normal range of motion grossly, equal radial pulses, no cyanosis, no pretibial edema Neurologic: Cranial nerves grossly intact, speech is clear Skin: warm and dry Psychiatric: Calm, cooperative, no apparent delusions or hallucinations Core Measures ACS in differential dx? No Severe Sepsis Present: No Septic Shock Present: No Progress Differential Diagnosis: bronchitis, CHF, COPD, pneumonia Plan of Care: Orders Procedure Date/time Status Telemetry/District Sales Representative 10/14 0754 Active TROPONIN LEVEL 10/14 0754 Complete MAGNESIUM 10/14 0754 Complete CBC WITHOUT DIFFERENTIAL 10/14 0754 Complete B-TYPE NATRIURETIC PEP (BNP) 10/14 0754 Complete BASIC METABOLIC PANEL 10/14 0754 Complete EKG 10/14 0725 Active Laboratory Tests 10/14/16 0815: Anion Gap 9, Estimated GFR > 60, BUN/Creatinine Ratio 14.3, Glucose 106 H, Calcium 8.9, Magnesium 1.8, Troponin I < 0.01, [id number] Pept 291 H, CBC w Diff MAN DIFF ORDERED, RBC 4.41, MCV 85.8, MCH 28.7, RDW 17.2 H, MPV 6.9 L, Gran % 92.3 H, Lymphocytes % 1.9 L, Monocytes % 5.5, Eosinophils % 0.3, Basophils % 0 L, Absolute Granulocytes 9.9 H, Segmented Neutrophils 87 H, Band Neutrophils 6 H, Absolute Lymphocytes 0.2 L, Lymphocytes 4 L, Monocytes 2, Absolute Monocytes 0.6, Eosinophils 1, Absolute Eosinophils 0, Absolute Basophils 0, Platelet Estimate ADEQUATE, Normocytic RBCs VERIFIED, Normochromic RBCs VERIFIED, PUBS MCHC 33.4 Diagnostic Imaging: Discussed w/RAD: Radiology Read. CXR Impression: PATIENT: JANEEN JAUREGUI PRESENT AGE: 76 PATIENT ACCOUNT NO: [id number] : 41 LOCATION: [facility] ORDERING PHYSICIAN: SALVADOR BARRERA MD SERVICE DATE: 10/14/16 EXAM TYPE: RAD - XRY-PORTABLE CHEST XRAY EXAMINATION: XR PORTABLE CHEST CLINICAL INFORMATION: Dyspnea. History of COPD and treated lung cancer. COMPARISON: Several prior studies including CT scan and prior chest x-ray of /. TECHNIQUE: Portable AP erect view of the chest was obtained. FINDINGS: Severe changes of COPD with upper lobe emphysema are unchanged. No focal consolidation, pulmonary edema or other acute abnormality is seen. Heart size is normal. IMPRESSION: Severe COPD. No acute abnormality. DICTATED BY: ELI SMITH MD DATE/TIME DICTATED:10/14/16842 WHOLESALE AND RETAIL MERCHANT:AMANDA DATE/TIME TRANSCRIBED:10/14/16842 CONFIDENTIAL, DO NOT COPY WITHOUT APPROPRIATE AUTHORIZATION. <Electronically signed in Other Vendor System> SIGNED BY: ELI SMITH MD 10/14/1649 Initial ED EKG: NSR, rate (87), no ST T wave changes Prior EKG: changed (a fib on prior) Comments: 10/14/2016 8:38:48 AM upon reevaluation patient's air entry has improved minimally but she otherwise appears comfortable. Oxygen saturation 97% on patient's chronic nasal cannula, heart rate 90. 10/14/2016 9:41:48 AM Janeen appears comfortable upon reevaluation. She states that the chest congestion is beginning to loosen. She feels she would benefit from another nebulizer treatment perhaps in a half an hour (she is feeling a little shaky from the prior nebulizer). 10/14/2016 12:39:26 PM Janeen continues to feel well, her vital signs are unremarkable. She wishes to return home and is attempting to obtain a ride from family. Departure Departure Disposition: HOME OR SELF CARE Condition: Stable Clinical Impression Primary Impression: COPD exacerbation Referrals: CHI GALLAGHER MD (PCP/Family) Additional Instructions: Take your nebulizer treatments 3 times daily and your rescue inhaler if needed in between. Prednisone as prescribed. Azithromycin as prescribed. Follow-up with Dr. Gallagher on Sunday. Return if any concerns or sudden worsening. Please note that there might be incidental findings in your evaluation that are unrelated to the current emergency department visit. Please notify your primary care doctor about this emergency department visit in order to obtain and review all of the testing performed so that these incidental findings can be monitored as needed. If you had an x-ray performed, please understand that some fractures may not be seen on the initial set of x-rays. If your symptoms persist you might need a repeat set of x-rays to check for such a fracture. If you had a laceration evaluated, please understand that foreign bodies such as glass or wood may not be visible to the naked eye or on plain x-rays. If the wound becomes red, swollen, increasingly more painful or if there is any drainage from the wound, please have it reevaluated by a physician for the possibility of a retained foreign body. Thank you for choosing the [facility] Emergency Department for your care. It was a pleasure to serve you today. Salvador Barrera M.D. [facility] Departure Forms: Customer Survey General Discharge Information Prescriptions: Current Visit Scripts Prednisone (Deltasone) 2 TAB PO DAILY #6 TAB BEGIN TOMORROW Critical Care Note Critical Care Note Critical Care Time: 30-74 min
--- NOTE | 2016-10-14 08:49 | RADIOLOGY REPORT ---
EXAMINATION: XR PORTABLE CHEST CLINICAL INFORMATION: Dyspnea. History of COPD and treated lung cancer. COMPARISON: Several prior studies including CT scan and prior chest x-ray of //09/15. TECHNIQUE: Portable AP erect view of the chest was obtained. FINDINGS: Severe changes of COPD with upper lobe emphysema are unchanged. No focal consolidation, pulmonary edema or other acute abnormality is seen. Heart size is normal. IMPRESSION: Severe COPD. No acute abnormality.
[2016-10-14 08:50] LABS: ABSOLUTE BASOPHIL COUNT 0 /CUMM (0.0-0.2); ABSOLUTE EOSINOPHIL COUNT 0 /CUMM (0.0-0.7); ABSOLUTE GRANULOCYTE CT 9.9 /CUMM (1.4-6.5); ABSOLUTE LYMPH COUNT 0.2 /CUMM (1.2-3.4); ABSOLUTE MONOCYTE COUNT 0.6 /CUMM (0.10-0.60); BASOPHIL % 0 % (0.0-2.0); EOSINOPHIL % 0.3 % (0-5); GRANULOCYTE % 92.3 % (42.2-75.2); HEMATOCRIT 37.9 % (37-47); MEAN CORPUSCULAR HGB 28.7 PG (27.0-31.0); MEAN CORPUSCULAR HGB CONC 33.4 G/DL (33.0-37.0); MEAN CORPUSCULAR VOLUME 85.8 FL (81.0-99.0); MEAN PLATELET VOLUME 6.9 FL (7.4-10.4); PLATELET COUNT 284 /CUMM (130-400); RBC DISTRIBUTION WIDTH 17.2 % (11.5-14.5); RED BLOOD CELL CT 4.41 /CUMM (4.20-5.40); WHITE BLOOD CELL COUNT 10.7 /CUMM (4.8-10.8)
[2016-10-14] MEDS ORDERED: ELIQUIS2.5 M1 PO (09:07)
[2016-10-14] MEDS ORDERED: DILTIAZEM 12HR90 MG PO (09:07)
[2016-10-14] MEDS ORDERED: DELTASONE20 MG PO (13:39)
[2016-10-14 13:40] VITALS: BP 118/70
== END 2016-10-14 13:49 ==
LOC: ERH 07:24
PROVIDERS: Emergency Medicine
DX: J44.1 Chronic obstructive pulmonary disease with (acute) exacerbation (principal); Z87.891 Personal history of nicotine dependence; R42 Dizziness and giddiness
CPT/HCPCS: 1263; 93005; 93010; 96374; 99291; J2930

== ENCOUNTER 2016-12-14 17:33 | Emergency (ER) | payer OTHER ==
[~2016-12-14] VITALS: Ht 152.4 cm; Wt 49.9 kg
[~2016-12-14 17:33] MED LIST changes: +DELTASONE20 MG PO; +ELIQUIS2.5 M1 PO
--- NOTE | 2016-12-14 17:44 | ED DYSPNEA/ASTHMA COMPLAINT ---
History of Present Illness General Chief Complaint: Dyspnea (COPD, CHF, Other) Stated Complaint: SOB, HX COPD Source: patient, old records Exam Limitations: no limitations Vital Signs & Intake/Output Vital Signs & Intake/Output Vital Signs Date Time Temp Pulse Resp B/P B/P Pulse O2 O2 Flow FiO2 Mean Ox Delivery Rate 12/14 2052 Nasal Cannula 12/14 2025 99.7 102 20 131/66 96 Nasal 2.0L Cannula 12/14 1858 101.3 12/14 1852 Nasal Cannula 12/14 1754 99 Nasal 2.0L Cannula 12/14 1750 101.3 107 18 156/88 99 Nasal 4.0L Cannula Allergies Coded Allergies: levofloxacin (Mild, LEGS FELT TIGHT 01/18/16) amoxicillin (ANAPHYLAXIS 10/14/16) clarithromycin (UNKNOWN - PT DOESNT REMEMBER WAS TOLD BY MD NOT TO TAKE 01/18/16 ) Reconcile Medications Albuterol Sulfate 0.63 MG/3 ML VIAL.NEB 1 Vial INH/AMOS TID COPD (Reported) Reason to Stop at ADM:[facility] ORDERS Albuterol Sulfate (Proair Respiclick) 90 MCG AER.POW.BA 2 PUFF INH Q4-6 PRN COPD Reason to Stop at ADM: [facility] NEB ORDERS Apixaban (Eliquis) 2.5 MG TABLET 1 TAB PO BID BLOOD THINNER (Reported) Diltiazem HCl (Diltiazem 12HR ER) 90 MG CAP.ER.12H 1 CAP PO DAILY HEART ( Reported) Doxycycline Hyclate 100 MG CAPSULE 1 CAP PO BID BRONCHITIS Dronedarone HCl (Multaq) 400 MG TABLET 400 MG PO BID Atrial fibrillation Fluticasone/Salmeterol (Advair 250-50 Diskus) 1 EACH BLST.W.DEV 1 PUF INH BID COPD (Reported) Reason to Stop at ADM: [facility] NEB ORDERS Linaclotide (Linzess) 145 MCG CAPSULE 1 CAP PO PRN GI (Reported) Prednisone 10 MG TABLET 1 TAB PO AD COPD DAY1/DAY2 FOUR TABS DAY3/DAY4 THREE TABS DAY5/DAY6 TWO TABS DAY7 ONE TAB Sodium Chloride (Saline Nasal [place]) (Unknown Strength) SPRAY (Unknown Dose) NASB PRN NASAL CONGESTION (Reported) Tiotropium [place] (Spiriva) 18 MCG CAP.W.DEV 1 CAP INH DAILY COPD (Reported) Reason to Stop at ADM: [facility] NEB ORDER Triage Nurses Notes Reviewed? yes Onset: Gradual Duration: constant Timing: recent history Severity: moderate Activities at Onset: none HPI: Patient is a 76-year-old female with a past medical history of atrial fibrillation currently on ELIQUIS, COPD and patient's non destructive testing engineer is Dr. DAWN where she was evaluated one week ago and was advised to decrease oxygen from 2 L to 1-1-1/2 for her improvement of her oxygen saturation, patient has a history of lung cancer with history status post of radiation therapy however patient has been in remission for over 6 months. Patient presents brought in by ambulance for concerns of shortness breath cough wheezing that began and last night patient had to increase her O2 due to demand. Patient denies any fever chills chest pain arm pain and jaw pain nausea vomiting hemoptysis leg swelling. (CECILIO GARCIA) Past History Travel History Traveled to [place] past 21 day No Medical History Any Pertinent Medical History? 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 MOTHER FH: breast cancer Hx Contributory? No (CECILIO GARCIA) Review of Systems Review of Systems Constitutional: Reports: no symptoms. EENTM: Reports: no symptoms. Respiratory: Reports: see HPI, cough, short of breath. Cardiovascular: Reports: see HPI. Denies: chest pain, palpitations. GI: Reports: no symptoms. Genitourinary: Reports: no symptoms. Musculoskeletal: Reports: no symptoms. Skin: Reports: no symptoms. Neurological/Psychological: Reports: no symptoms. Hematologic/Endocrine: Reports: no symptoms. Immunologic/Allergic: Reports: no symptoms. All Other Systems: Reviewed and Negative (CECILIO GARCIA) Physical Exam Physical Exam General Appearance: no apparent distress, alert, cachetic Respiratory: decreased breath sounds Comments: Well-developed well-nourished person in no acute distress HEENT: Normal EENT exam, Neck: Supple, no lymphadenopathy, normal range of motion without pain or tenderness Back: Nontender, no CVA tenderness Cardiovascular: IRRegular rate and rhythms no murmurs rubs or gallops, normal JVP Abdomen: Soft, nontender nondistended, no appreciable organomegaly. Normal bowel sounds. No ascites Extremity: No edema, no calf tenderness to palpation, normal and equal pulses. Neuro: Alert oriented x3, motor sensory normal, Skin: No appreciable rash on exposed skin, skin is warm and dry. Psych: Mood and affect is normal, memory and judgment is normal. Core Measures ACS in differential dx? Yes Severe Sepsis Present: No Septic Shock Present: No (MIKE BURNS,CECILIO) Progress Differential Diagnosis: asthma, AMI, bronchitis, costochondritis, CHF, COPD, musculoskeletal pain, pericarditis, pulmonary embolism, pneumonia, pneumothorax, unstable angina Plan of Care: Orders Procedure Date/time Status LACTIC ACID 12/14 2120 Active URINALYSIS 12/14 1953 Complete EKG 12/14 1821 Active BLOOD CULTURE 12/14 1820 Active TROPONIN LEVEL 12/14 182 Complete LACTIC ACID 12/14 182 Complete COMPREHENSIVE METABOLIC PANEL 12/14 182 Complete CBC WITHOUT DIFFERENTIAL 12/14 1820 Complete Laboratory Tests 12/14/162100: Urine Color STRAW, Urine Clarity CLEAR, Urine pH 7.0, Ur Specific [place] 1.010, Urine Protein NEG, Urine Ketones TRACE H, Urine Nitrite NEG, Urine Bilirubin NEG, Urine Urobilinogen 0.2, Ur Leukocyte Esterase NEG, Ur Microscopic SEDIMENT EXAMINED, Urine RBC 3-5, Urine WBC 1-3 H, Ur Epithelial Cells RARE, Urine Hemoglobin SMALL H, Urine Glucose NEG 12/14/16 1844: Anion Gap 12, Estimated GFR > 60, BUN/Creatinine Ratio 14.3, Glucose 100 H, Lactic Acid 0.8, Calcium 8.8, Total Bilirubin 0.9, AST 22, ALT 29, Alkaline Phosphatase 93, Troponin I < 0.01, Total Protein 6.6, Albumin 4.1, Globulin 2.5, Albumin/Globulin Ratio 1.6, CBC w Diff NO MAN DIFF REQ, RBC 4.77, MCV 85.9, MCH 28.6, RDW 16.1 H, MPV 7.2 L, Gran % 94.5 H, Lymphocytes % 1.8 L, Monocytes % 3.4, Eosinophils % 0.3, Basophils % 0 L, Absolute Granulocytes 10.2 H, Absolute Lymphocytes 0.2 L, Absolute Monocytes 0.4, Absolute Eosinophils 0, Absolute Basophils 0, PUBS MCHC 33.3 Microbiology 12/14 1854 BLOOD: Blood Culture - RECD 12/15 1843 BLOOD: Blood Culture - RECD On initial examination patient was in no respiratory distress oxygen saturation is 96% with 2 L Patient had unremarkable blood work unremarkable troponin Patient had significant improvement after nebulizer was administered of shortness of breath and wheezing Over on initial examination there was no audible wheezing Patient had resolved fever Patient had requested to be discharged home patient will be treated for concerns of COPD exacerbation and bronchitis. Patient was strongly advised to follow up with pulmonology discuss disposition plan with Dr. PACHECO who agrees Although pulmonary embolism because of my differential there is no concern prior to discharge (CECILIO GARCIA) Diagnostic Imaging: Viewed by Me: Radiology Read. Radiology Impression: SEE COMMENTS Initial ED EKG: AFIB Comments: PATIENT: YISEL JAUREGUI PRESENT AGE: 76 PATIENT ACCOUNT NO: [id number] : 41 LOCATION: [facility] ORDERING PHYSICIAN: CECILIO BURNS SERVICE DATE: 12/14/16 EXAM TYPE: RAD - XRY-CHEST XRAY, PA AND LATERAL EXAMINATION: XR CHEST CLINICAL INFORMATION: Shortness of breath cough fever COMPARISON: Prior exams most recent chest x-ray September 2016 TECHNIQUE: 2 views of the chest were obtained. FINDINGS: Severe emphysematous change with prominent lucency in the apices bilaterally unchanged. Linear opacity in the left mid lung compatible scarring. Rounded nodular density right mid lung compatible with granuloma unchanged Compression of one of the midthoracic vertebral bodies compatible with old fracture unchanged. IMPRESSION: Chronic changes compatible underlying COPD unchanged (CECILIO GARCIA) Departure Departure Disposition: HOME OR SELF CARE Condition: Stable Clinical Impression Primary Impression: Bronchitis Secondary Impressions: COPD (chronic obstructive pulmonary disease) Referrals: CHI LEY MD (PCP/Family) Additional Instructions: DISCUSSED CONTINUE HOME MEDICATIONS DIRECTED BEGIN THE PRESCRIPTION OF PREDNISONE AND DOXYCYCLINE DIRECTED FOR THE FULL COURSE IF NO BETTER ON SUNDAY FOLLOW UP WITH YOUR PLASTIC PRESS OPERATOR IF SYMPTOMS WORSEN, OR IF YOU DEVELOP A NEW CONCERNING SYMPTOM, RETURN TO THE ER -PRESCRIPTIONS ARE WAITING AT [facility] Departure Forms: Customer Survey General Discharge Information Prescriptions: Current Visit Scripts Doxycycline Hyclate 1 CAP PO BID #20 CAP Prednisone 1 TAB PO AD #19 TAB DAY1/DAY2 FOUR TABS DAY3/DAY4 THREE TABS DAY5/DAY6 TWO TABS DAY7 ONE TAB (CECILIO GARCIA) PA/WARDSPERSON Co-Sign Statement Statement: ED Attending supervision documentation- x I saw and evaluated the patient. I have also reviewed all the pertinent lab results and diagnostic results. I agree with the findings and the plan of care as documented in the PA's/WARDSPERSON's documentation. [] I have reviewed the ED Record and agree with the PA's/WARDSPERSON's documentation. [] Additions or exceptions (if any) to the PAs/WARDSPERSON's note and plan are summarized below: [] (JUNIOR CLIFFORD,ABBY) Critical Care Note Critical Care Note Critical Care Time: non-applicable (CECILIO GARCIA)
[2016-12-14] MEDS ORDERED: SALINE NASAL SP30 ML NASB (18:29)
[2016-12-14] MEDS ORDERED: LINZESS145 MC1 PO (18:30)
--- NOTE | 2016-12-14 19:10 | RADIOLOGY REPORT ---
EXAMINATION: XR CHEST CLINICAL INFORMATION: Shortness of breath cough fever COMPARISON: Prior exams most recent chest x-ray September 2016 TECHNIQUE: 2 views of the chest were obtained. FINDINGS: Severe emphysematous change with prominent lucency in the apices bilaterally unchanged. Linear opacity in the left mid lung compatible scarring. Rounded nodular density right mid lung compatible with granuloma unchanged Compression of one of the midthoracic vertebral bodies compatible with old fracture unchanged. IMPRESSION: Chronic changes compatible underlying COPD unchanged
[2016-12-14 19:21] LABS: ABSOLUTE BASOPHIL COUNT 0 /CUMM (0.0-0.2); ABSOLUTE EOSINOPHIL COUNT 0 /CUMM (0.0-0.7); ABSOLUTE GRANULOCYTE CT 10.2 /CUMM (1.4-6.5); ABSOLUTE LYMPH COUNT 0.2 /CUMM (1.2-3.4); ABSOLUTE MONOCYTE COUNT 0.4 /CUMM (0.10-0.60); BASOPHIL % 0 % (0.0-2.0); EOSINOPHIL % 0.3 % (0-5); MEAN CORPUSCULAR HGB 28.6 PG (27.0-31.0); MEAN CORPUSCULAR HGB CONC 33.3 G/DL (33.0-37.0); MEAN CORPUSCULAR VOLUME 85.9 FL (81.0-99.0); MEAN PLATELET VOLUME 7.2 FL (7.4-10.4); PLATELET COUNT 285 /CUMM (130-400); RBC DISTRIBUTION WIDTH 16.1 % (11.5-14.5); RED BLOOD CELL CT 4.77 /CUMM (4.20-5.40); WHITE BLOOD CELL COUNT 10.8 /CUMM (4.8-10.8)
[2016-12-14 19:38] LABS: GRANULOCYTE % 94.5 % (42.2-75.2)
[2016-12-14] MEDS ORDERED: PREDNISONE10 M2 PO (21:21)
[2016-12-14] MEDS ORDERED: DOXYCYCLINE HY100 M2 PO (21:21)
[2016-12-14 22:38] VITALS: BP 130/74
== END 2016-12-14 22:40 ==
LOC: ERH 17:33
PROVIDERS: Physician Assistant
DX: J44.9 Chronic obstructive pulmonary disease, unspecified (principal)
CPT/HCPCS: 1263; 81001; 87040; 93005; 93010; 96374; J2930

== ENCOUNTER 2016-12-17 14:44 | Inpatient (IN) | payer OTHER ==
[~2016-12-17] VITALS: Ht 162.6 cm; Wt 49.9 kg
[~2016-12-17 14:44] MED LIST changes: +DOXYCYCLINE HY100 M2 PO; +LINZESS145 MC1 PO; +SALINE NASAL SP30 ML NASB
--- NOTE | 2016-12-17 14:50 | ED DYSPNEA/ASTHMA COMPLAINT ---
History of Present Illness General Chief Complaint: Dyspnea (COPD, CHF, Other) Stated Complaint: DYSPNEA Source: patient, old records Exam Limitations: no limitations Vital Signs & Intake/Output Vital Signs & Intake/Output Vital Signs Date Time Temp Pulse Resp B/P B/P Pulse O2 O2 Flow FiO2 Mean Ox Delivery Rate 12/17 1737 98.8 102 20 119/59 94 Room Air 12/17 1733 96 Nasal 2.0L Cannula 12/17 1535 94 2.0L 12/17 1530 101.8 12/17 1502 101.8 12/17 1453 103.9 128 25 134/65 93 Nasal 2.0L Cannula Allergies Coded Allergies: levofloxacin (Mild, LEGS FELT TIGHT 12/17/16) amoxicillin (ANAPHYLAXIS 12/17/16) clarithromycin (UNKNOWN - PT DOESNT REMEMBER WAS TOLD BY MD NOT TO TAKE 12/17/16 ) Reconcile Medications Albuterol Sulfate 0.63 MG/3 ML VIAL.NEB 1 Vial INH/AMOS TID COPD (Reported) Reason to Stop at ADM:[facility] ORDERS Albuterol Sulfate (Proair Respiclick) 90 MCG AER.POW.BA 2 PUFF INH Q4-6 PRN COPD Reason to Stop at ADM: [facility] NEB ORDERS Apixaban (Eliquis) 2.5 MG TABLET 1 TAB PO BID BLOOD THINNER (Reported) Diltiazem HCl (Diltiazem 12HR ER) 90 MG CAP.ER.12H 1 CAP PO DAILY HEART ( Reported) Doxycycline Hyclate 100 MG CAPSULE 1 CAP PO BID BRONCHITIS Dronedarone HCl (Multaq) 400 MG TABLET 400 MG PO BID Atrial fibrillation Fluticasone/Salmeterol (Advair 250-50 Diskus) 1 EACH BLST.W.DEV 1 PUF INH BID COPD (Reported) Reason to Stop at ADM: [facility] NEB ORDERS Linaclotide (Linzess) 145 MCG CAPSULE 1 CAP PO PRN GI (Reported) Prednisone 10 MG TABLET 1 TAB PO AD COPD DAY1/DAY2 FOUR TABS DAY3/DAY4 THREE TABS DAY5/DAY6 TWO TABS DAY7 ONE TAB Sodium Chloride (Saline Nasal [place]) (Unknown Strength) SPRAY (Unknown Dose) NASB PRN NASAL CONGESTION (Reported) Tiotropium Hurley (Spiriva) 18 MCG CAP.W.DEV 1 CAP INH DAILY COPD (Reported) Reason to Stop at ADM: [facility] NEB ORDER Triage Nurses Notes Reviewed? 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 Patient on arrival was noted to have fever however this was resolved prior to discharge which patient was administered site Medrol and nebulizer treatments with improvement of her symptoms. Patient was prescribed prednisone and doxycycline for symptoms. Patient was brought in by ambulance in which patient states that 2 days ago when she began to prescription of prednisone and doxycycline she began having abdominal discomfort loose watery diarrhea production and dry heaving and nausea. Patient has not been able tolerate anything by mouth today. Patient also states that her breathing shortness of breath and wheezing has worsens. Patient was able to take an albuterol inhaler and nebulizer treatment at home with no relief in which patient also during EMS ride WAS receiving nebulizer. Patient denies any chest pain and arm pain and jaw pain back pain diaphoresis. Denies any bright red blood after bowel movements or melena. (CECILIO GARCIA) Past History Travel History Traveled to [place] past 21 day No Medical History Any Pertinent Medical History? 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 MOTHER FH: breast cancer Hx Contributory? No (CECILIO GARCIA) Review of Systems Review of Systems Constitutional: Reports: see HPI. EENTM: Reports: no symptoms. Respiratory: Reports: see HPI, cough, short of breath. Cardiovascular: Reports: see HPI. GI: Reports: see HPI, abdominal pain. Genitourinary: Reports: no symptoms. Musculoskeletal: Reports: no symptoms. Skin: Reports: no symptoms. Neurological/Psychological: Reports: no symptoms. Hematologic/Endocrine: Reports: no symptoms. Immunologic/Allergic: Reports: no symptoms. All Other Systems: Reviewed and Negative (CECILIO GARCIA) Physical Exam Physical Exam General Appearance: anxious Respiratory: quiet respiration, decreased breath sounds Cardiovascular: tachycardia Comments: HEENT: Normal EENT exam, extraocular motion intact, no nystagmus. Pupils equally round and reactive to light and accommodation. Nose is atraumatic. External auditory canal and Tympanic membranes clear. Pharynx normal. No swelling or edema. Neck: Supple, no lymphadenopathy, normal range of motion without pain or tenderness Back: Nontender, no CVA tenderness. Abdomen: Soft, nontender nondistended, no appreciable organomegaly. Normal bowel sounds. No ascites Extremity: No edema, no calf tenderness to palpation, normal and equal pulses. Neuro: Alert oriented x3, motor sensory normal, Skin: No appreciable rash on exposed skin, skin is warm and dry. Psych: Mood and affect is normal, memory and judgment is normal. Core Measures ACS in differential dx? No Severe Sepsis Present: No Septic Shock Present: No (CECILIO GARCIA) Progress Differential Diagnosis: asthma, AMI, bronchitis, costochondritis, CHF, COPD, musculoskeletal pain, pericarditis, pulmonary embolism, pneumonia, pneumothorax, rib fracture, unstable angina, c. DIFFICILE, PANCREATITIS, APPENDICITIS, DIVERTICULITIS Plan of Care: Orders Procedure Date/time Status Regular Diet 12/18 B Active Intake & Output 12/17 183 Active OXYGEN SETUP (GEN) 12/17 183 Active Saline Lock 12/17 183 Active Misc Message 12/17 183 Active ED Holding Orders 12/17 1835 Active Vital Signs 12/17 1835 Active Activity/Ambulation 12/17 183 Active Code Status 12/17 1835 Active CULTURE,URINE 12/17 1807 Active STREP PNEUMO URINARY ANTIGEN 12/17 180 Active LEGIONELLA URINARY ANTIGEN 12/17 1807 Active URINALYSIS 12/17 1807 Active Patient Data 12/17 1804 Active LACTIC ACID 12/17 1800 Active Admit to inpatient 12/17 1746 Active LIPASE 12/17 1512 Complete AMYLASE 12/17 1512 Complete LACTIC ACID 12/17 1500 Complete CULTURE,STOOL 05/21 1459 Active LOWER RESPIRATORY CULTURE 12/17 1458 Active C.DIFFICILE 12/17 1458 Active BLOOD CULTURE 12/17 1458 Active TROPONIN LEVEL 12/17 1458 Complete COMPREHENSIVE METABOLIC PANEL 12/17 1458 Complete CBC WITHOUT DIFFERENTIAL 12/17 1458 Complete EKG 12/17 1444 Active Laboratory Tests 12/17/16 1900: Lactic Acid Pending 12/17/16 1512: Lactic Acid 1.1 12/17/16 1512: Anion Gap 11, Estimated GFR > 60, BUN/Creatinine Ratio 18.6, Glucose 114 H, Calcium 8.9, Total Bilirubin 1.0, AST 89 H, ALT 87 H, Alkaline Phosphatase 109 , Troponin I < 0.01, Total Protein 6.6, Albumin 3.8, Globulin 2.8, Albumin/ Globulin Ratio 1.4, Amylase 33, Lipase 15 L, CBC w Diff MAN DIFF ORDERED, RBC 5.10, MCV 86.4, MCH 28.3, RDW 16.4 H, MPV 7.4, Gran % 92.0 H, Lymphocytes % 1.7 L, Monocytes % 6.2, Eosinophils % 0, Basophils % 0.1, Absolute Granulocytes 13.9 H, Segmented Neutrophils 81 H, Band Neutrophils 6 H, Absolute Lymphocytes 0.3 L, Lymphocytes 5 L, Monocytes 8, Absolute Monocytes 0.9 H, Absolute Eosinophils 0, Absolute Basophils 0, Platelet Estimate ADEQUATE, Normochromic RBCs VERIFIED, PUBS MCHC 32.7 L Microbiology 12/17 1806 URINE ROUT: Legionella Antigen - ORD 12/17 1806 URINE ROUT: Streptococcus pneumoniae Antigen (M - ORD 12/17 1806 URINE ROUT: Urine Culture - ORD 12/17 1514 BLOOD: Blood Culture - RECD 12/18 1511 BLOOD: Blood Culture - RECD 12/17 1458 LOWER RESP: Respiratory Culture - ORD 12/17 1458 LOWER RESP: Gram Stain - ORD 12/17 1458 STOOL: Clostridium difficile Toxin A & B - ORD 12/17 1458 STOOL: Stool Culture - ORD Diagnostic Imaging: Viewed by Me: Radiology Read. Radiology Impression: SEE COMMENTS Initial ED EKG: sINUS RHYTHM NOTED 114 BPM Comments: PATIENT: YISEL JAUREGUI PRESENT AGE: 76 PATIENT ACCOUNT NO: [id number] : 41 LOCATION: [facility] ORDERING PHYSICIAN: CECILIO BURNS SERVICE DATE: 12/17/16-1458 EXAM TYPE: RAD - XRY-CHEST XRAY, PA AND LATERAL EXAMINATION: XR CHEST CLINICAL INFORMATION: Shortness of breath. COMPARISON: Prior chest radiographs, most recently 12/14/2016; CTA thorax dated 08/31/2016. TECHNIQUE: 2 views of the chest were obtained. FINDINGS: The heart, great vessels, pulmonary vasculature mediastinum are stable. There is severe emphysematous changes with marked biapical lucency and hyperinflation. No definite pneumothorax is seen. There is dense plate-like atelectasis in the left upper lobe. There is a small left pleural effusion. No acute osseous abnormality seen. IMPRESSION: There are diffuse emphysematous changes. There is interim appearance of dense left upper lobe platelike atelectasis. Recommend short term follow-up chest radiographs to ensure clearance and exclude the possibility of underlying obstructive process. A small left pleural effusion is seen. DICTATED BY: JOSE ANTONIO FARAH MD DATE/TIME DICTATED:12/17/161552 RUNNER OUT:AMANDA DATE/TIME TRANSCRIBED:12/17/161552 CONFIDENTIAL, DO NOT COPY WITHOUT APPROPRIATE AUTHORIZATION. PATIENT: YISEL JAUREGUI PRESENT AGE: 76 PATIENT ACCOUNT NO: [id number] : 41 LOCATION: [facility] ORDERING PHYSICIAN: CECILIO BURNS SERVICE DATE: 12/17/16 EXAM TYPE: CAT - CT ABD & PELVIS W IV CONTRAST EXAMINATION: CT ABDOMEN AND PELVIS WITH CONTRAST CLINICAL INFORMATION: Abdominal pain. Nausea, vomiting. COMPARISON: Same day chest radiographs. TECHNIQUE: Contiguous axial thin section helical images of the abdomen and pelvis were performed following the administration of 94 mL of intravenous Optiray 320. The data set was reformatted in the coronal and sagittal planes and reviewed on an independent workstation. DLP: 249 mGy-cm. FINDINGS: Within the visualized lung bases, there is emphysema. There is a [id number] left pleural effusion with adjacent airspace disease.. The visualized portions of the heart are unremarkable. The liver is of normal size and attenuation without focal lesions nor intrahepatic biliary ductal dilation. A normal gallbladder is identified. There is no wall thickening or discernible pericholecystic fluid. The spleen, pancreas, adrenal glands are unremarkable. Both kidneys are of normal size and attenuation without hydronephrosis. There is a 4 mm nonobstructive calculus within the interpole region of the left kidney. Following the administration of IV contrast, prompt symmetric nephrograms are displayed. There is no abdominal free fluid. There is neither mesenteric nor retroperitoneal lymphadenopathy. Normal unopacified loops of small and large bowel are identified. There is no pelvic free fluid. The the urinary bladder is distended. There is no wall thickening. There is neither pelvic nor inguinal lymphadenopathy. Bone windows: Neither sclerotic nor lytic bone lesions are identified. There is disc height loss at L2/L3. IMPRESSION: Distended urinary bladder. No pelvic free fluid. [id number] left pleural effusion with adjacent airspace disease. Emphysema. 4 mm nonobstructive left renal calculus. No evidence for bowel obstruction. DICTATED BY: VALENTIN BAKER MD DATE/TIME DICTATED:12/17/161640 RUNNER OUT:AMANDA DATE/TIME TRANSCRIBED:12/17/161640 (CECILIO GARCIA) Departure Departure Disposition: STILL A PATIENT Condition: Stable Clinical Impression Primary Impression: Pneumonia Secondary Impressions: Abdominal pain, Adverse drug reaction, COPD (chronic obstructive pulmonary disease) Referrals: CHI GALLAGHER MD (PCP/Family) Departure Forms: Customer Survey General Discharge Information Admission Note Spoke With: YAHIR CLIFFORD,SHAY Severino Documentation of Exam: Documentation of any treatments & extenuating circumstances including Concerns Regarding Discharge (functional status, medication knowledge or non-compliance, living conditions, etc.) that warrant an admission rather than observation: [ Discussed patient with Dr. SINCLAIR was covering for Dr. Gallagher and which HE AGREES with general medicine admission with concerns of pneumonia and COPD. Patient requires IV antibiotics, repeat nebulizer treatments, pulmonary consultation antipyretics and IV fluid resuscitation. Outpatient treatment at this time would be medically harmful due to filled up a treatment of doxycycline for concerns of pneumonia bronchitis] (CECILIO GARCIA) PA/AERODYNAMICS TEACHER Co-Sign Statement Statement: ED Attending supervision documentation- [X] I saw and evaluated the patient. I have also reviewed all the pertinent lab results and diagnostic results. I agree with the findings and the plan of care as documented in the PA's/AERODYNAMICS TEACHER's documentation. [X] I have reviewed the ED Record and agree with the PA's/AERODYNAMICS TEACHER's documentation. [] Additions or exceptions (if any) to the PAs/AERODYNAMICS TEACHER's note and plan are summarized below: [] (MICHAEL CLIFFORD,DAVID Torres) Critical Care Note Critical Care Note Critical Care Time: 30-74 min (CECILIO GARCIA)
--- NOTE | 2016-12-17 14:51 | NUR ---
PT MELCHOR FROM HOME FOR DIFFICULTY BREATHING. PT SEEN HERE ON SUNDAY AND DIAGNOSED WITH COPD EXACERBATION SENT HOME ON PREDNISONE. STARTED TO FEEL BETTER SUNDAY, BUT SUNDAY STARTED TO FEEL WORSE AND NOW PT FEELS LIKE SHE CAN'T CATCH HER BREATH AND IS NAUSEAS AND CAN'T KEEP HER PO MEDS DOWN. PT BASELINE 1.5 L NC OXYGEN AT HOME, GOT DUO NEB EN ROUTE. CURRENTLY 95% ON 2L NC. PRODUCTIVE COUGH.
--- NOTE | 2016-12-17 15:34 | NUR ---
PT TO RADIOLOGY
[2016-12-17 15:42] LABS: ABSOLUTE BASOPHIL COUNT 0 /CUMM (0.0-0.2); ABSOLUTE EOSINOPHIL COUNT 0 /CUMM (0.0-0.7); ABSOLUTE GRANULOCYTE CT 13.9 /CUMM (1.4-6.5); ABSOLUTE LYMPH COUNT 0.3 /CUMM (1.2-3.4); ABSOLUTE MONOCYTE COUNT 0.9 /CUMM (0.10-0.60); BASOPHIL % 0.1 % (0.0-2.0); EOSINOPHIL % 0 % (0-5); MEAN CORPUSCULAR HGB 28.3 PG (27.0-31.0); MEAN CORPUSCULAR HGB CONC 32.7 G/DL (33.0-37.0); MEAN CORPUSCULAR VOLUME 86.4 FL (81.0-99.0); MEAN PLATELET VOLUME 7.4 FL (7.4-10.4); PLATELET COUNT 297 /CUMM (130-400); RBC DISTRIBUTION WIDTH 16.4 % (11.5-14.5); WHITE BLOOD CELL COUNT 15.2 /CUMM (4.8-10.8)
--- NOTE | 2016-12-17 16:01 | RADIOLOGY REPORT ---
EXAMINATION: XR CHEST CLINICAL INFORMATION: Shortness of breath. COMPARISON: Prior chest radiographs, most recently 12/14/2016; CTA thorax dated 08/31/2016. TECHNIQUE: 2 views of the chest were obtained. FINDINGS: The heart, great vessels, pulmonary vasculature mediastinum are stable. There is severe emphysematous changes with marked biapical lucency and hyperinflation. No definite pneumothorax is seen. There is dense plate-like atelectasis in the left upper lobe. There is a small left pleural effusion. No acute osseous abnormality seen. IMPRESSION: There are diffuse emphysematous changes. There is interim appearance of dense left upper lobe platelike atelectasis. Recommend short term follow-up chest radiographs to ensure clearance and exclude the possibility of underlying obstructive process. A small left pleural effusion is seen.
--- NOTE | 2016-12-17 16:55 | CT SCAN REPORT ---
EXAMINATION: CT ABDOMEN AND PELVIS WITH CONTRAST CLINICAL INFORMATION: Abdominal pain. Nausea, vomiting. COMPARISON: Same day chest radiographs. TECHNIQUE: Contiguous axial thin section helical images of the abdomen and pelvis were performed following the administration of 94 mL of intravenous Optiray 320. The data set was reformatted in the coronal and sagittal planes and reviewed on an independent workstation. DLP: 249 mGy-cm. FINDINGS: Within the visualized lung bases, there is emphysema. There is a [id number] left pleural effusion with adjacent airspace disease.. The visualized portions of the heart are unremarkable. The liver is of normal size and attenuation without focal lesions nor intrahepatic biliary ductal dilation. A normal gallbladder is identified. There is no wall thickening or discernible pericholecystic fluid. The spleen, pancreas, adrenal glands are unremarkable. Both kidneys are of normal size and attenuation without hydronephrosis. There is a 4 mm nonobstructive calculus within the interpole region of the left kidney. Following the administration of IV contrast, prompt symmetric nephrograms are displayed. There is no abdominal free fluid. There is neither mesenteric nor retroperitoneal lymphadenopathy. Normal unopacified loops of small and large bowel are identified. There is no pelvic free fluid. The the urinary bladder is distended. There is no wall thickening. There is neither pelvic nor inguinal lymphadenopathy. Bone windows: Neither sclerotic nor lytic bone lesions are identified. There is disc height loss at L2/L3. IMPRESSION: Distended urinary bladder. No pelvic free fluid. [id number] left pleural effusion with adjacent airspace disease. Emphysema. 4 mm nonobstructive left renal calculus. No evidence for bowel obstruction.
--- NOTE | 2016-12-17 17:30 | NUR ---
RT AT BEDSIDE
--- NOTE | 2016-12-17 18:09 | History & Physical ---
See Addendum LAUREL CLIFFORDHARISH 12/17/16 9731: General Information and HPI MD Statement: I have seen and personally examined YISEL JAUREGUI and documented this H&P. The patient is a 76 year old F who presented with a patient stated chief complaint of [abdominal pain, diarrhea]. Source of Information: patient Exam Limitations: no limitations History of Present Illness: 76-year-old female with PMH of atrial fibrillation on eliquis, COPD on 2L home O2, lung ca sp radiation and in remission, anxiety, presented for lower abdominal crampy pain associated with diarrhea that started after she took doxycycline for about 2 days. Patient presented to the ED 3 days prior to admission with fever, increased wheezing, congestion, and shortness of breath requiring increased use of her rescue inhalers. She was sent home on doxycycline and prednisone since she refused to be admitted at that time. Since she took the prednisone, she has been feeling jittery, unable to sleep, which are her normal reaction to prednison. In addition, prednisone also makes her feel bloated and nauseous. She had diarrhea and lower abd pain (crampy, comes and goes, described as menstrual cramp like, relieved with BM) since midnight of admission. She has not been able to tolerate PO since the diarrhea started. Of note, she was diagnosed with atrial fibrillation in Aug, and was started on eliquis by Dr. Plunkett, after which she started noticing blood tinged sputum. She does report cough with blood tinged sputum. Other associated symptoms include weakness. Social hx: pt ambulates independently, lives with son, has home health nurse that comes twice a week, former smoker, occassionally drinks wine. In the ED, her vitals were as follows: t 103.9, pulse rate 128, rr 25, bp 134/65 , 93% on 2L. Labs significant for wbc 15.2 with 81 seg and 6 bands. lactic acid 1.1. na 136, t bili 1, ast 89, alt 87. Imaging showed 4mm NONobstructive left renal calculus, left upper lobe atelectasis. Pt was given 1500ml fluid bolus, 1X40mg prednisone, 1X ceftriaxone and azithromycin, 1Xzofran, 1X tylenol. Allergies/Medications Allergies: Coded Allergies: levofloxacin (Mild, LEGS FELT TIGHT 12/17/16) amoxicillin (ANAPHYLAXIS 12/17/16) clarithromycin (UNKNOWN - PT DOESNT REMEMBER WAS TOLD BY NOT TO TAKE 12/17/16 ) Home Med list Albuterol Sulfate 0.63 MG/3 ML VIAL.NEB 1 Vial INH/AMOS TID COPD (Reported) Reason to Stop at ADM:[facility] ORDERS Albuterol Sulfate (Proair Respiclick) 90 MCG AER.POW.BA 2 PUFF INH Q4-6 PRN COPD Reason to Stop at ADM: [facility] ORDERS Apixaban (Eliquis) 2.5 MG TABLET 1 TAB PO BID BLOOD THINNER (Reported) Diltiazem HCl (Diltiazem 12HR ER) 90 MG CAP.ER.12H 1 CAP PO DAILY HEART ( Reported) Doxycycline Hyclate 100 MG CAPSULE 1 CAP PO BID BRONCHITIS Dronedarone HCl (Multaq) 400 MG TABLET 400 MG PO BID Atrial fibrillation Fluticasone/Salmeterol (Advair 250-50 Diskus) 1 EACH BLST.W.DEV 1 PUF INH BID COPD (Reported) Reason to Stop at ADM: [facility] ORDERS Linaclotide (Linzess) 145 MCG CAPSULE 1 CAP PO PRN GI (Reported) Prednisone 10 MG TABLET 1 TAB PO AD COPD DAY1/DAY2 FOUR TABS DAY3/DAY4 THREE TABS DAY5/DAY6 TWO TABS DAY7 ONE TAB Sodium Chloride (Saline Nasal [place]) (Unknown Strength) SPRAY (Unknown Dose) NASB PRN NASAL CONGESTION (Reported) Tiotropium [place] (Spiriva) 18 MCG CAP.W.DEV 1 CAP INH DAILY COPD (Reported) Reason to Stop at ADM: [facility] NEB ORDER Past History Travel History Traveled to [place] past 21 day No Medical History Neurological: NONE EENT: NONE Cardiovascular: AFIB, PT ON ELIQUIS Respiratory: COPD, emphysema, pneumonia, DEP ON 1.5 L NC Gastrointestinal: NONE Hepatic: NONE Renal: NONE Musculoskeletal: NONE Psychiatric: anxiety Endocrine: NONE Blood Disorders: NONE 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 MOTHER FH: breast cancer Psychosocial History Where do you live? Home Who Do You Live With? child Services at Home: Nursing, Oxygen Primary Language: [place] Smoking Status: Former Smoker ETOH Use: occasional use Illicit Drug Use: denies illicit drug use Living Will? yes Functional Ability ADLs Independent: dressing, eating, toileting, bathing. Ambulation: independent IADLs Independent: finances, telephone, medication admin. Needs Assist: shopping, housework, food prep, transportation. Review of Systems Review of Systems Constitutional: Reports: fever, weakness. EENTM: Denies: visual changes. Cardiovascular: Denies: chest pain, orthopena. Respiratory: Reports: cough, short of breath, sputum production, wheezing. Denies: orthopnea. GI: Reports: abdominal pain, bloating, diarrhea, nausea, changes in stool. Denies: vomiting. Genitourinary: Denies: dysuria, frequency, hematuria. Exam & Diagnostic Data Last 24 Hrs of Vital Signs/I&O Vital Signs Date Time Temp Pulse Resp B/P B/P Pulse O2 O2 Flow FiO2 Mean Ox Delivery Rate 12/17 1737 98.8 102 20 119/59 94 Room Air 12/17 1733 96 Nasal 2.0L Cannula 12/17 1535 94 2.0L 12/17 1530 101.8 12/17 1502 101.8 12/17 1453 103.9 128 25 134/65 93 Nasal 2.0L Cannula Intake & Output 12/17 1600 12/17 0800 12/17 0000 Intake Total Output Total Balance Patient 45.359 kg Weight Weight Estimated Measurement Method Physical Exam General Appearance Alert, Oriented X3, Cooperative, anxious appearing HEENT Atraumatic, PERRLA Cardiovascular Regular Rate, Normal S1, Normal S2, No Murmurs Lungs decreased breath sound all over Abdomen Normal Bowel Sounds, Soft, No Tenderness Extremities No Edema, chronic skin changes Vascular Normal Pulses, Pulses Symmetrical Last 24 Hrs of Labs/Mannie: Laboratory Tests 12/17/16 1900: Lactic Acid Pending 12/17/16 1512: Lactic Acid 1.1 12/17/16 1512: Anion Gap 11, Estimated GFR > 60, BUN/Creatinine Ratio 18.6, Glucose 114 H, Calcium 8.9, Total Bilirubin 1.0, AST 89 H, ALT 87 H, Alkaline Phosphatase 109 , Troponin I < 0.01, Total Protein 6.6, Albumin 3.8, Globulin 2.8, Albumin/ Globulin Ratio 1.4, Amylase 33, Lipase 15 L, CBC w Diff MAN DIFF ORDERED, RBC 5.10, MCV 86.4, MCH 28.3, RDW 16.4 H, MPV 7.4, Gran % 92.0 H, Lymphocytes % 1.7 L, Monocytes % 6.2, Eosinophils % 0, Basophils % 0.1, Absolute Granulocytes 13.9 H, Segmented Neutrophils 81 H, Band Neutrophils 6 H, Absolute Lymphocytes 0.3 L, Lymphocytes 5 L, Monocytes 8, Absolute Monocytes 0.9 H, Absolute Eosinophils 0, Absolute Basophils 0, Platelet Estimate ADEQUATE, Normochromic RBCs VERIFIED, PUBS MCHC 32.7 L Microbiology 12/17 1806 URINE ROUT: Legionella Antigen - ORD 12/17 1806 URINE ROUT: Streptococcus pneumoniae Antigen (M - ORD 12/17 1806 URINE ROUT: Urine Culture - ORD 12/17 151 BLOOD: Blood Culture - RECD 12/18 1511 BLOOD: Blood Culture - RECD 12/17 1458 LOWER RESP: Respiratory Culture - ORD 12/17 145 LOWER RESP: Gram Stain - ORD 12/17 1458 STOOL: Clostridium difficile Toxin A & B - ORD 12/17 1458 STOOL: Stool Culture - ORD Diagnostic Data CXR Results SERVICE DATE: 12/17/16 EXAM TYPE: RAD - XRY-CHEST XRAY, PA AND LATERAL EXAMINATION: XR CHEST CLINICAL INFORMATION: Shortness of breath. COMPARISON: Prior chest radiographs, most recently 12/14/2016; CTA thorax dated 08/31/2016. TECHNIQUE: 2 views of the chest were obtained. FINDINGS: The heart, great vessels, pulmonary vasculature mediastinum are stable. There is severe emphysematous changes with marked biapical lucency and hyperinflation. No definite pneumothorax is seen. There is dense plate-like atelectasis in the left upper lobe. There is a small left pleural effusion. No acute osseous abnormality seen. IMPRESSION: There are diffuse emphysematous changes. There is interim appearance of dense left upper lobe platelike atelectasis. Recommend short term follow-up chest radiographs to ensure clearance and exclude the possibility of underlying obstructive process. A small left pleural effusion is seen. DICTATED BY: JOSE ANTONIO FARAH MD DATE/TIME DICTATED:12/17/161552 Other Results SERVICE DATE: 12/17/16 EXAM TYPE: CAT - CT ABD & PELVIS W IV CONTRAST EXAMINATION: CT ABDOMEN AND PELVIS WITH CONTRAST CLINICAL INFORMATION: Abdominal pain. Nausea, vomiting. COMPARISON: Same day chest radiographs. TECHNIQUE: Contiguous axial thin section helical images of the abdomen and pelvis were performed following the administration of 94 mL of intravenous Optiray 320. The data set was reformatted in the coronal and sagittal planes and reviewed on an independent workstation. DLP: 249 mGy-cm. FINDINGS: Within the visualized lung bases, there is emphysema. There is a bjskz-jl-brwkwwfr left pleural effusion with adjacent airspace disease.. The visualized portions of the heart are unremarkable. The liver is of normal size and attenuation without focal lesions nor intrahepatic biliary ductal dilation. A normal gallbladder is identified. There is no wall thickening or discernible pericholecystic fluid. The spleen, pancreas, adrenal glands are unremarkable. Both kidneys are of normal size and attenuation without hydronephrosis. There is a 4 mm nonobstructive calculus within the interpole region of the left kidney. Following the administration of IV contrast, prompt symmetric nephrograms are displayed. There is no abdominal free fluid. There is neither mesenteric nor retroperitoneal lymphadenopathy. Normal unopacified loops of small and large bowel are identified. There is no pelvic free fluid. The the urinary bladder is distended. There is no wall thickening. There is neither pelvic nor inguinal lymphadenopathy. Bone windows: Neither sclerotic nor lytic bone lesions are identified. There is disc height loss at L2/L3. IMPRESSION: Distended urinary bladder. No pelvic free fluid. Kuvjd-rk-ygcemlnz left pleural effusion with adjacent airspace disease. Emphysema. 4 mm nonobstructive left renal calculus. No evidence for bowel obstruction. DICTATED BY: VALENTIN BAKER MD DATE/TIME DICTATED:12/17/161640 Assessment/Plan Assessment: 76-year-old female with PMH of atrial fibrillation on eliquis, COPD on 2L home O2, lung ca sp radiation and in remission, anxiety, presented for lower abdominal crampy pain associated with diarrhea that started after she took doxycycline for about 2 days. Doxycycline and prednisone was prescribed for presumable pneumonia given fever, cough, increased shortness of breath. # Sepsis most likely due pneumonia vs c diff colitis (recent abx use) - On admission fever up to 103.9, leukocytosis 15.2 with bands and segmented neutrophils, tachycardic up to 128 * Continue ceftriaxone and azithromycin * follow pancx- BCX2, UA, UC, LRC, urine legionella, urine s pneumo, stool cx, c dif * follow cbc * TRC * Consult Dr. Guevara in am * Consider CT chest * solumedrol 40 q8 # Abdominal pain and diarrhea, secondary to c diff vs adverse drug reaction * Stop doxycycline * Follow up C diff # Hx of atrial fibrillation * Continue eliquis, diltiazem, dronadrenone Diet: Heart healthy DVT ppx: alps and eliquis FULL CODE As Ranked By This Provider Problem List: 1. Pneumonia 2. Adverse drug reaction Core Measures/Miscellaneous Acute Coronary Syndrome ACS Diagnosis: No Cerebrovascular Accident CVA/TIA Diagnosis: No Congestive Heart Failure CHF Diagnosis: No Venous Thromboembolism VTE Risk Factors: Age > 40 No [facility] VTE prophylaxis d/t: No contraindications No VTE Pharm Prophylaxis d/t: No contraindications VTE Diagnosis: No VTE Type: NONE VTE Confirmed by (Test): NONE Severe Sepsis Severe Sepsis Present: No Septic Shock Septic Shock Present: No Miscellaneous Documentation Attending Case Discussed With: Dr. Ribeiro Primary Care Physician: CHI LEY MD Patient sees these Specialists Dr. Plunkett Cardiology Dr. Guevara pulmonology Dr. Sethi radiation oncology Level of Patient Care: General Medicine DARREN CLIFFORD,[facility] 12/17/16 2000: Resident Review Statement Resident Statement: examined this patient, discussed with general internist and physician leader, agreed with general internist and physician leader, reviewed EMR data (avail) Other Findings: The patient is a 76 year old woman with a past medical history of COPD on 1.5L of home O2, lung cancer status post radiation and in remission, anxiety, and atrial fibrillation on eliquis, multaq and cardizem. She presents with worsening shortness of breath and cough of 3 days duration and crammping abdominal pain and diarrhea of 2 days duration. She was previously seen in the ER 3 days ago on account of her shortness of breath and cough productive of scanty sputum. She was given po prednisone and doxycycline with initial improvement in symptoms. However, her symptoms worsened 2 days ago and she developed abdominal pain and non-bloody diarrhea. She also felt nauseous and had poor appetite and has not been eating much for the past 24 hours. Vital signs in the ER showed a Temp of 103.9F, Pulse 128 bpm, RR 25, BP 134/65 mmhg, O2 sat 93% on 2L. She was given 1500ml fluid bolus, 40mg prednisone, IV ceftriaxone 1g and IV azithromycin 500mg, IV zofran, and PO tylenol. Physical Exam General Appearance: Elderly woman, cachectic, awake and alert, oriented X3, in mild respiratory distress HEENT: PERRLA, EOMI, Mucous Membr. moist/pink Neck: Supple, +2 Carotid Pulse wo Bruit, No JVD Cardiovascular: Regular Rate, Normal S1, Normal S2, No Murmurs Lungs: Dullness to percussion in left lung particularly in left lung base, reduced air entry in entire left lung. Normal air entry in right lung. Abdomen: Normal Bowel Sounds, Soft, No Tenderness Extremities: No Cyanosis, Normal Pulses, No pedal edema Siignificant Labs: WBC 15.2/cumm, 81% segs, 6% bands. Lactic acid 1.1, NA 136, Total bili 1, AST 89, ALT 87. EKG: HR 114 bpm, sinus tachycardia, QTC 414 ms Imaging Chest X-ray Interval dense upper lobe plate-like atelectasis and diffuse emphysematous changes with small left pleural effusion. CT abdomen No evidence of bowel obstruction. 4mm nonobstructive left renal calculus, Problem list 1. Community acquired pneumonia 2. COPD 3. Abdominal pain with concerns for c-difficile infection 4. Atrial fibrillation on eliquis, multaq and cardizem 5. History of lung cancer in remission s/p radiation Plan * Admit to general medicine * No sign of organ dysfunction at this time * Lactic acid levels 1.1 ---> repeat 1.6 * Blood culture X2, Urine culture, Sputum culture, urine legionella, strep pneumo, rapid flu, urinalysis * Discontinue po doxycycline * Continue IV ceftriaxone 1 g daily and IV ceftriaxone 500 mg daily * Repeat CBC in AM * Quick SOFA score 1 (Not high risk) * Monitor fluid input and output * Hydration with IV normal saline @ 50 cc/hr * [place] oral fluid intake * Consider repeat imaging with a CT chest in the morning to investigate abnormal chest X-ray findings * Pulmonology consult in the AM * [facility] evaluation for nebulizer therapy * IV solumedrol 40 mg Q 8 hrs * Continue home medications for COPD spiriva * Stool culture and c-diff toxin * Continue home medications for atrial fibrillation with eliquis, multaq and cardizem * DVT prophylaxis with PO eliquis * Regular diet * Code status is Full code
--- NOTE | 2016-12-17 19:02 | NUR ---
PT RESTING IN ROOM. EXPRESSES ANXIETY OVER ADMISSION AND HOW ONGOING HEALTH ISSUES AFFECT TRANSPORTATION. PT ADVISED TO ADDRESS THESE CONCERNS WITH SOCIAL WORK/ASSISTANT PUBLIC DEFENDER DURING ADMISSION.
--- NOTE | 2016-12-17 19:15 | NUR ---
PT ASSIGNED TO [place] [id number]
--- NOTE | 2016-12-17 20:10 | NUR ---
REPORT GIVEN TO MYKE MONTGOMERY
--- NOTE | 2016-12-17 20:39 | NUR ---
FLU SWAB SENT
--- NOTE | 2016-12-17 22:00 | NUR ---
RECEIVED PT FROM [facility] 2044. A/O X3. ON 2L O2 NC. PT'S SPO2 87%. O2 INCREASED TO 3L O2. SPO2 94%. RT UPDATED. LUNGS DIMINISHED. NO OPEN AREAS TO THE BODY NOTED. PRESSURE AREA TO BOTTOM NOTED. PT REFUSED SIZEWISE AT THIS TIME. SKIN ECHYMOTTIC. PT ON ELIQUIS. BLE DISCOLORED, DRY AND FLAKY. PAINFREE. IV FLUIDS INITIATED. WILL CONTINUE TO MONITOR.
[2016-12-17 22:22] VITALS: BP 138/72
[2016-12-18 00:20] VITALS: BP 122/70
--- NOTE | 2016-12-18 00:20 | NUR ---
PT C/O DIFFICULTY BREATHING. SPO2 CHECKED AT 93% ON 3L O2 NC. ROOM TEMP LOWERED. EXTRA BLANKET REMOVED. RT CALLED FOR A BREATHING TX.
--- NOTE | 2016-12-18 00:20 | NUR ---
PT C/O SOB. SPO2 93% ON 3L O2 NC. HR FLUCTUATING BETWEEN 50 - 140. [employer] JUDGE RAMON DUMONT CALLED AND REQUESTED FOR AN ORDER FOR AN EKG. PT HAS A H/O AFIB. WILL MONITOR.
--- NOTE | 2016-12-18 00:50 | NUR ---
EKG DONE. EXTRUSION PRESS OPERATOR IMGE CALLED TO REVIEW THE EKG AND ASSESS THE PT. AFTER ASSESSMENT, EXTRUSION PRESS OPERATOR SAID THAT PT MIGHT BE TRANSFERRED TO TELE FLOOR FOR CLOSE MONITORING BUT WILL CONFIRM AFTER TALKING TO THE RESIDENT.
--- NOTE | 2016-12-18 01:25 | NUR ---
NEW ORDER IN TO TRANSFER THE PT TO TELE FLOOR. ESCALATOR ATTENDANT UPDATED. RM 110 ASSIGNED.
--- NOTE | 2016-12-18 01:46 | Event Note ---
Event Note Event Note: Around 12:30 AM, we were alerted by nursing staff that patient had been complaining of shortness of breath and had desaturated to 93% on 3 L NC. She was tachycardic with heart rate fluctuating between 100 and 140. EKG was ordered which showed atrial fibrillation. Patient had received her qhtcq-ql-cepfxusml dose of Diltiazem 90 mg PO daily as well as her evening dose of Multaq 400 mg earlier in the evening. Her lksmr-st-sucoeqjcu Eliquis had been resumed. She was seen and examined at bedside. She was noted to be in mild respiratory distress with paradoxical abdominal breathing. She endorsed palpitations but denied chest pain. Decision was made to transfer patient to telemetry for continuous cardiac monitoring. Will continue to monitor and administer IV push of Diltiazem if patient remains persistently tachycardic.
--- NOTE | 2016-12-18 02:51 | NUR ---
AT 0230 RECEIVED REPORT FROM LYNETTE AT THE BEDSIDE, PATIENT IS A/O X 3, OPEN EYES SPONTANEOUSLY, PERRLA, MOVES ALL THE LIMBS, OBEYS COMMAND, DENIES ANY PAIN. VITAL SIGNS TAKEN FOLLOWS HR= 86, RR=28, HS=971/50 ( MANUAL), BF=975/57 ( AUTO CUFF ), SPO2=94, TEMP=98. GOOD PALPABLE PULSES, HAS +1 EDEMA TO BOTH LOWER EXTREMITIES. BREATHING SPONTANEOUSLY ON NC AT 3L, LUNGS IS DIMINISHED ON BOTH LUNG BOUDREAUX, GOOD O2 SATURATION NOT IN DISTRESS, COUGH AT TIMES BUT NO PHLEGM COMING OUT. ABDOMEN IS FLAT, SOFT, GOOD BOWEL SOUNDS, ABLE TO DRINKS WATER WITHOUT DIFFICULTY, LAST BM IS YESTERDAY 12/17/16. VOIDS ON HER OWN USING COMMODE. SKIN IS PALE IS COLOR WITH MULTIPLE SCAB ON BILATERAL EXTREMITIES, NOTED ALSO TO HAVE RED BLANCHABLE ON THE SACRAL AREA AND OPEN WOUND MEASURING 1 CM. X 1 CM. DRY AND NO OOZING, COVERED BY BROWN BANDAGE. HAS GAUGE 20 TO THE LEFT ARM PRE H[facility] INSERTED ON 12/17 AND GAUGE 22 TO THE RIGHT FOREARM INSERTED ON 12/17 RUNNING WITH NS AT 50ML/HR.
[2016-12-18 04:49] LABS: BASOPHIL % 0 % (0.0-2.0); EOSINOPHIL % 0 % (0-5); GRANULOCYTE % 96.3 % (42.2-75.2); MEAN CORPUSCULAR HGB 28.8 PG (27.0-31.0); MEAN CORPUSCULAR HGB CONC 33.3 G/DL (33.0-37.0); MEAN CORPUSCULAR VOLUME 86.5 FL (81.0-99.0); MEAN PLATELET VOLUME 7.5 FL (7.4-10.4); PLATELET COUNT 223 /CUMM (130-400); RBC DISTRIBUTION WIDTH 16.3 % (11.5-14.5); RED BLOOD CELL CT 4.11 /CUMM (4.20-5.40); WHITE BLOOD CELL COUNT 14.7 /CUMM (4.8-10.8)
[2016-12-18 05:02] LABS: ABSOLUTE GRANULOCYTE CT 14.2 /CUMM (1.4-6.5); ABSOLUTE LYMPH COUNT 0.1 /CUMM (1.2-3.4); ABSOLUTE MONOCYTE COUNT 0.5 /CUMM (0.10-0.60); HEMATOCRIT 35.5 % (37-47)
--- NOTE | 2016-12-18 06:51 | PN- Housestaff ---
Subjective Follow-up For: Sepsis CAP Abdominal pain, diarrhea Atrial fibrillation Complaints: no complaints Tele-Events Since Last Visit: No telemetry events, patient in NSR with appropriate rate. Subjective: Patient seen and examined at bedside this AM. She reports she is not happy about being in the hospital as she was recently doing so well at home and did not expect to decline after her improvement. She reports she was recently able to titrate down her home O2 from 2 L to 1-1.5 L as instructed by Dr. Ismael MD. Currently, Ms. Aldana denies fever, chills, chest pain, shortness of breath or abdominal pain. Review of Systems Constitutional: Denies: chills, fever. EENTM: Denies: blurred vision, visual changes, hearing changes. Cardiovascular: Denies: chest pain, palpitations. Respiratory: Reports: cough, sputum production (Slight). Denies: short of breath, wheezing. Gastrointestinal: Denies: abdominal pain, nausea. Genitourinary: Denies: dysuria. Musculoskeletal: Denies: back pain. Skin: Denies: rash. Neurological/Psychological: Denies: confusion. Hematologic/Endocrine: Denies: bruising, bleeding. Objective Last 24 Hrs of Vital Signs/I&O Vital Signs Date Time Temp Pulse Resp B/P B/P Pulse O2 O2 Flow FiO2 Mean Ox Delivery Rate 12/18 0700 98.5 73 20 103/65 97 Nasal 3.0L Cannula 12/18 0020 140 122/70 92 Nasal 3.0L Cannula 12/17 2222 97.6 114 21 138/72 95 Nasal 3.0L Cannula 12/17 2159 114 138/72 12/17 2106 94 Nasal 3.0L Cannula 12/17 2038 99 124/62 12/17 1853 98.7 99 22 124/62 94 Nasal 2.0L Cannula 12/17 1738 98.8 102 20 119/59 94 Room Air 12/17 1733 96 Nasal 2.0L Cannula 12/17 1535 94 2.0L 12/17 1530 101.8 12/17 1502 101.8 12/17 1453 103.9 128 25 134/65 93 Nasal 2.0L Cannula Intake & Output 12/18 1600 12/18 0800 12/18 0000 Intake Total 700 1200 Output Total 600 Balance 700 600 Intake, IV 450 1100 Intake, Oral 250 100 Output, Urine 600 Patient 110 lb Weight Weight Estimated Measurement Method Physical Exam General Appearance: Alert, Oriented X3, Cooperative, No Acute Distress Skin: No Significant Lesion Skin Temp/Moisture Exam: Warm/Dry HEENT: Atraumatic, PERRLA, EOMI Neck: Supple, No JVD Lymphatic: Cervical nl Cardiovascular: Regular Rate, Normal S1, Normal S2, No Murmurs Lungs: Normal Air Movement, Decreased air movement bilateral bases, no wheezing Abdomen: Normal Bowel Sounds, Soft, No Tenderness Neurological: Normal Speech, Normal Tone Extremities: No Clubbing, No Cyanosis, No Edema Vascular: Normal Pulses, Pulses Symmetrical Current Medications: Current Medications Sig/Kirill Start time Last Medication Dose Route Stop Time Status Admin Acetaminophen 650 MG Q6P PRN 12/17 2214 AC PO Acetaminophen 0 .STK-MED ONE 12/17 1529 DC PO Acetaminophen 650 MG ONCE ONE 12/17 1500 DC 12/17 PO 12/17 1501 1530 Albuterol Sulfate 3 ML ONCE ONE 12/17 1715 DC 12/17 INH 12/17 1716 1731 Apixaban 2.5 MG BID 12/17 2199 AC 12/17 PO 2158 Azithromycin 500 MG DAILY@1700 12/18 1700 AC Sodium Chloride 250 ML IV Azithromycin 500 MG ONCE ONE 12/17 1600 DC 12/17 Sodium Chloride 250 ML IV 12/17 1659 1725 Budesonide/ 2 PUF BID 12/17 2199 AC 12/17 Formoterol Fumarate INH 2202 Ceftriaxone Sodium 1,000 MG DAILY@1700 12/18 1700 AC IV Ceftriaxone Sodium 0 .STK-MED ONE 12/17 1706 DC .ROUTE Ceftriaxone Sodium 1,000 MG ONCE ONE 12/17 1600 DC 12/17 IV 12/17 1601 1720 Diltiazem HCl 15 MG ONCE ONE 12/18 0130 CAN IV PUSH 12/18 0131 Diltiazem HCl 90 MG DAILY 12/17 193 AC 12/17 PO 203 Dronedarone 400 MG BID 12/17 2199 AC 12/17 PO 2158 Guaifenesin 10 ML Q4P PRN 12/17 1944 AC PO Melatonin 5 MG AT BEDTIME 12/17 2199 AC PO Methylprednisolone 40 MG Q8 12/17 194 AC 12/18 IV 12/21 1401 0520 Ondansetron HCl 0 .STK-MED ONE 12/17 1529 DC .ROUTE Ondansetron HCl 4 MG ONCE ONE 12/17 1515 DC 12/17 IV 12/17 1516 1530 Potassium Chloride 10 MEQ ONCE ONE 12/18 0600 DC 12/18 PO 12/18 0601 0601 Prednisone 0 .STK-MED ONE 12/17 1919 DC PO Prednisone 40 MG ONCE ONE 12/17 1715 DC PO 12/17 1716 Sodium Chloride 1,000 ML Q20H 12/17 1945 AC 12/17 IV 12/18 1544 2059 Sodium Chloride 500 ML BOLUS ONE 12/17 1600 DC 12/17 IV 12/17 1659 191 Sodium Chloride 1,000 ML BOLUS ONE 12/17 1500 DC 12/17 IV 12/17 1559 1530 Tiotropium [place] 1 PUF DAILY 12/17 193 AC 12/17 INH 2156 Last 24 Hrs of Lab/Mannie Results Last 24 Hrs of Labs/Mics: Laboratory Tests 12/18/16 0340: Anion Gap 8, Estimated GFR > 60, BUN/Creatinine Ratio 18.0, Total Bilirubin 0.5, Direct Bilirubin 0.3, AST 29, ALT 55 H, Alkaline Phosphatase 68, Total Protein 4.7 L, Albumin 2.5 L, CBC w Diff MAN DIFF ORDERED, RBC 4.11 L, MCV 86.5, MCH 28.8, RDW 16.3 H, MPV 7.5, Gran % 96.3 H, Lymphocytes % 0.6 L, Monocytes % 3.1, Eosinophils % 0, Basophils % 0 L, Absolute Granulocytes 14.2 H, Segmented Neutrophils 93 H, Band Neutrophils 4, Absolute Lymphocytes 0.1 L, Monocytes 3, Absolute Monocytes 0.5, Absolute Eosinophils 0.0, Absolute Basophils 0.0, Nucleated RBCs 100 H, Platelet Estimate ADEQUATE, Polychromasia 1+, Poikilocytosis 1+, Basophilic Stippling SLIGHT, Ovalocytes 1+, Elliptocytes FEW, PUBS MCHC 33.3 12/17/161924: Urinalysis LIGHT H, Urine Color YEL, Urine Clarity CLEAR, Urine pH 6.0, Ur Specific [place] 1.010, Urine Protein NEG, Urine Ketones NEG, Urine Nitrite NEG, Urine Bilirubin NEG, Urine Urobilinogen 0.2, Ur Leukocyte Esterase NEG, Ur Microscopic SEDIMENT EXAMINED, Urine RBC 3-5, Urine WBC RARE, Ur Epithelial Cells FEW, Urine Bacteria RARE H, Urine Mucus RARE, Urine Hemoglobin TRACE- INTACT, Urine Glucose NEG 12/17/16 1900: Lactic Acid 1.6 12/17/16 151: Lactic Acid 1.1 12/17/16 1512: Anion Gap 11, Estimated GFR > 60, BUN/Creatinine Ratio 18.6, Glucose 114 H, Calcium 8.9, Total Bilirubin 1.0, AST 89 H, ALT 87 H, Alkaline Phosphatase 109 , Troponin I < 0.01, Total Protein 6.6, Albumin 3.8, Globulin 2.8, Albumin/ Globulin Ratio 1.4, Amylase 33, Lipase 15 L, CBC w Diff MAN DIFF ORDERED, RBC 5.10, MCV 86.4, MCH 28.3, RDW 16.4 H, MPV 7.4, Gran % 92.0 H, Lymphocytes % 1.7 L, Monocytes % 6.2, Eosinophils % 0, Basophils % 0.1, Absolute Granulocytes 13.9 H, Segmented Neutrophils 81 H, Band Neutrophils 6 H, Absolute Lymphocytes 0.3 L, Lymphocytes 5 L, Monocytes 8, Absolute Monocytes 0.9 H, Absolute Eosinophils 0, Absolute Basophils 0, Platelet Estimate ADEQUATE, Normochromic RBCs VERIFIED, PUBS MCHC 32.7 L Microbiology 12/18 0230 UPPER RESP: Surveillance Culture - RECD 12/17 2030 NASOPHARYN: Influenza Virus A & B Rapid Smear - COMP 12/17 1924 URINE ROUT: Legionella Antigen - RES 12/17 1924 URINE ROUT: Streptococcus pneumoniae Antigen (M - RES 12/17 1924 URINE ROUT: Urine Culture - RES 12/17 1514 BLOOD: Blood Culture - RECD 12/17 151 BLOOD: Blood Culture - RECD 12/17 145 LOWER RESP: Respiratory Culture - COLB 12/17 145 LOWER RESP: Gram Stain - COLB 12/17 145 STOOL: Clostridium difficile Toxin A & B - COLB 12/17 1458 STOOL: Stool Culture - COLB Orders EKG Findings: HR 114 bpm, sinus tachycardia, QTC 414 ms Radiology Findings: CXR: IMPRESSION: There are diffuse emphysematous changes. There is interim appearance of dense left upper lobe platelike atelectasis. Recommend short term follow-up chest radiographs to ensure clearance and exclude the possibility of underlying obstructive process. A small left pleural effusion is seen. Miscellaneous Findings: Abdomen/pelvis CT: IMPRESSION: Distended urinary bladder. No pelvic free fluid. [id number] left pleural effusion with adjacent airspace disease. Emphysema. 4 mm nonobstructive left renal calculus. No evidence for bowel obstruction. Assessment/Plan Assessment: Ms. Aldana is a 76 year old female with PMH COPD on 2 L home O2, lung cancer s/p radiation currently in remission, atrial fibrillation diagnosed in Februrary on Eliquis and anxiety who presents to [place] with chief complaint of crampy lower abdominal pain and diarrhea 2 days after initiating doxycycline therapy for presumed pneumonia. Janeen presented to the ED 3 days prior to admission with fever, increased wheezing, congestion and shortness of breath requiring increased use of her rescue inhalers. She was sent home on doxycycline and prednisone since as she refused to be admitted at that time. She returned on for evaluation of new-onset crampy abdominal pain and diarrhea. Vital signs in the ED: T 103.9, HR 128, RR 25, BP 134/65 and O2 saturation 93% on 2 L NC. Labs were significant for: WBC 15.2, 92% granulocytes, 6 bands, H&H 14.4/44, Plt 297, Na 136, K 4.1, Cl 100, HCO3 25, BUN 13, cre 0.7, Gli 114, lactic acid 1, AST 89, ALT 87, troponin <0.01, amylase 33, lipase 15 and UA without infection. CXR showed diffuse emphysematous changes with dense BRIANA platelike atelectasis. Small left pleural effusion. CT abdomen/pelvis showed 4 mm nonobstructive left renal calculus. No evidence for bowel obstruction. Patient was admitted to the general medicine floor, was found to be tachycardic to the 140s and in mild respiratory distress. She was transferred to the ICU as a telemetry hold and the following is the current management: 1. Sepsis secondary to likely community-acquired PNA in the setting of COPD * On admission, patient febrile 103.9, tachycardia to 128, WBC 15.2 with bands and suspected source of infection PNA (CT showed airpsace disease with left pleural effusion) * Cdiff does remain on differential as patient had recent doxycycline use and + diarrhea * F/U CDiff, LRC, BC x 2; urine negative for legionella and strep antigens * Continue IV ceftriaxone 1 g daily and IV azithromycin 500 mg daily * Trend CBC * Total respiratory care evaluation/treatment * Pulmonary consult pending, follow up recommendations * Continue IV solumedrol 40 mg Q8, symbicort 1 puff daily * NS 50 cc/h 2. Abdominal pain and diarrhea * DDx includes CDiff vs adverse drug reaction vs gastroenteritis * Hold doxycycline * Follow up stool for CDiff 3. Atrial fibrillation on Eliquis * Continuous telemetry monitoring * Continue Eliquis 2.5 mg PO BID * Continue rate control with Diltiazem SR 90 mg PO daily * Dronedarone 400 mg PO BID * Cardio consult with Dr. Dimitrios MD appreciated FULL CODE DVTP: Eliquis and ALPS Regular diet Mild pain pathway Problem List: 1. Abdominal pain 2. Pneumonia 3. History of lung cancer in adulthood 4. Atrial fibrillation 5. Tachycardia 6. COPD (chronic obstructive pulmonary disease) Pain Ratin Pain Location: n/a Pain Goal: Remain pain free Pain Plan: Tylenol for mild pain. Tomorrow's Labs & Rationales: CBC (leukocytosis with sepsis) BEP (hyponatremia)
[2016-12-18 07:00] VITALS: BP 103/65
--- NOTE | 2016-12-18 09:33 | Cons- Cardiology ---
General Information and HPI Consulting Request Date of Consult: 12/18/16 Requested By: CHI LEY MD Reason for Consult: Recurrent atrial fibrillation and severe lung disease. Source of Information: patient, old records Exam Limitations: no limitations History of Present Illness: Janeen Aldana is a 76-year-old female with severe underlying oxygen dependent COPD and a left upper lobe lung cancer, which has been treated with radiation. I saw her previously in June 2015 when she was here for an exacerbation of COPD, and she had a presyncopal episode, which I thought was vasovagal. Subsequently she has had a couple of admissions for exacerbation of COPD, and a course of radiation for left upper lobe cancer. She was most recently admitted on 08/31/2016 for exacerbation of COPD. The next day in the afternoon she was noted to be tachycardic and an EKG documented rapid atrial fibrillation. She was given 1 dose of adenosine, which did not convert her but did slow the ventricular response transiently. She was then started on Cardizem drip and her rate slowed somewhat. She was then started on anticoagulation. An echocardiogram showed normal left ventricular systolic function, normal left atrial size, with an atrial septal aneurysm, normal mitral and aortic valves, right ventricular systolic pressure mildly elevated at 35-40 mmHg. Subsequently she was in and out of atrial fibrillation, was placed on Multaq 400 mg twice a day. When she was discharged, however, she was back in atrial fibrillation at a relatively controlled rate on Eliquis 5 mg twice daily, Cardizem 90 mg twice daily and Multaq 400 mg twice daily, as well as her Advair, Spiriva, and other pulmonary regimen. I have seen her a couple of times in the office and she has been in sinus rhythm during those visits. The patient was admitted for exacerbation of COPD. She was started on antibiotics. On admission she was in sinus rhythm. Last evening she was noted to be in atrial fibrillation and was given some IV Cardizem. She then spontaneously converted to sinus rhythm sometime this morning. She is feeling much better in sinus rhythm. She has not had any chest pain. Allergies/Medications Allergies: Coded Allergies: levofloxacin (Mild, LEGS FELT TIGHT 12/17/16) amoxicillin (ANAPHYLAXIS 12/17/16) clarithromycin (UNKNOWN - PT DOESNT REMEMBER WAS TOLD BY NOT TO TAKE 12/17/16 ) Home Med List: Albuterol Sulfate 0.63 MG/3 ML VIAL.NEB 1 Vial INH/AMOS TID COPD (Reported) Reason to Stop at ADM:[facility] ORDERS Albuterol Sulfate (Proair Respiclick) 90 MCG AER.POW.BA 2 PUFF INH Q4-6 PRN COPD Reason to Stop at ADM: [facility] NEB ORDERS Apixaban (Eliquis) 2.5 MG TABLET 1 TAB PO BID BLOOD THINNER (Reported) Diltiazem HCl (Diltiazem 12HR ER) 90 MG CAP.ER.12H 1 CAP PO DAILY HEART ( Reported) Doxycycline Hyclate 100 MG CAPSULE 1 CAP PO BID BRONCHITIS Dronedarone HCl (Multaq) 400 MG TABLET 400 MG PO BID Atrial fibrillation Fluticasone/Salmeterol (Advair 250-50 Diskus) 1 EACH BLST.W.DEV 1 PUF INH BID COPD (Reported) Reason to Stop at ADM: [facility] NEB ORDERS Linaclotide (Linzess) 145 MCG CAPSULE 1 CAP PO PRN GI (Reported) Prednisone 10 MG TABLET 1 TAB PO AD COPD DAY1/DAY2 FOUR TABS DAY3/DAY4 THREE TABS DAY5/DAY6 TWO TABS DAY7 ONE TAB Sodium Chloride (Saline Nasal [place]) (Unknown Strength) SPRAY (Unknown Dose) NASB PRN NASAL CONGESTION (Reported) Tiotropium [place] (Spiriva) 18 MCG CAP.W.DEV 1 CAP INH DAILY COPD (Reported) Reason to Stop at ADM: [facility] NEB ORDER Current Medications: Current Medications Sig/Kirill Start time Last Medication Dose Route Stop Time Status Admin Acetaminophen 650 MG Q6P PRN 12/17 2214 AC PO Acetaminophen 0 .STK-MED ONE 12/17 1529 DC PO Acetaminophen 650 MG ONCE ONE 12/17 1500 DC 12/17 PO 12/17 1501 1530 Albuterol Sulfate 3 ML EVERY 4 HRS/AWAKE 12/18 1200 AC 12/18 INH 0905 Albuterol Sulfate 3 ML ONCE ONE 12/17 1715 DC 12/17 INH 12/17 1716 1731 Apixaban 2.5 MG BID 12/17 2200 AC 12/17 PO 2158 Azithromycin 500 MG DAILY@1700 12/18 1700 AC Sodium Chloride 250 ML IV Azithromycin 500 MG ONCE ONE 12/17 1600 DC 12/17 Sodium Chloride 250 ML IV 12/17 1659 1725 Budesonide/ 2 PUF BID 12/17 2199 AC 12/17 Formoterol Fumarate INH 2202 Ceftriaxone Sodium 1,000 MG DAILY@1700 12/18 1700 AC IV Ceftriaxone Sodium 0 .STK-MED ONE 12/17 170 DC .ROUTE Ceftriaxone Sodium 1,000 MG ONCE ONE 12/17 1600 DC 12/17 IV 12/17 1601 1720 Diltiazem HCl 15 MG ONCE ONE 12/18 0130 CAN IV PUSH 12/18 0131 Diltiazem HCl 90 MG DAILY 12/17 1930 AC 12/17 PO 2038 Dronedarone 400 MG BID 12/17 2199 AC 12/17 PO 2159 Guaifenesin 10 ML Q4P PRN 12/17 1944 AC PO Melatonin 5 MG AT BEDTIME 12/17 2199 AC PO Methylprednisolone 40 MG Q8 12/17 1944 AC 12/18 IV 12/21 1401 0520 Ondansetron HCl 0 .STK-MED ONE 12/17 1529 DC .ROUTE Ondansetron HCl 4 MG ONCE ONE 12/17 1515 DC 12/17 IV 12/17 1516 1530 Potassium Chloride 10 MEQ ONCE ONE 12/18 0600 DC 12/18 PO 12/18 0601 0601 Prednisone 0 .STK-MED ONE 12/17 1919 DC PO Prednisone 40 MG ONCE ONE 12/17 1715 DC PO 12/17 1716 Sodium Chloride 1,000 ML Q20H 12/17 194 AC 12/17 IV 12/18 1544 2059 Sodium Chloride 500 ML BOLUS ONE 12/17 1600 DC 12/17 IV 12/17 1659 1915 Sodium Chloride 1,000 ML BOLUS ONE 12/17 1500 DC 12/17 IV 12/17 1559 1530 Tiotropium [place] 1 PUF DAILY 12/18 1931 AC 12/17 INH 2156 Review of Systems Review of Systems: She has no other complaints in the review of systems at this time. 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 MOTHER FH: breast cancer Psychosocial History Where Do You Live? Home Who Do You Live With? child Services at Home: Nursing, Oxygen Primary Language: Kyrgyz Smoking Status: Former Smoker ETOH Use: occasional use Illicit Drug Use: denies illicit drug use Living Will? yes Functional Ability ADLs Independent: dressing, eating, toileting, bathing. Ambulation: independent IADLs Independent: finances, telephone, medication admin. Needs Assist: shopping, housework, food prep, transportation. Exam & Diagnostic Data Vital Signs and I&O Vital Signs Date Time Temp Pulse Resp B/P B/P Pulse O2 O2 Flow FiO2 Mean Ox Delivery Rate 12/18 0800 96 Nasal 3.0L Cannula 12/18 0700 98.5 73 20 103/65 97 Nasal 3.0L Cannula 12/18 0020 140 122/70 92 Nasal 3.0L Cannula 12/17 2222 97.6 114 21 138/72 95 Nasal 3.0L Cannula 12/17 2159 114 138/72 12/17 2106 94 Nasal 3.0L Cannula 12/17 2038 99 124/62 12/17 1853 98.7 99 22 124/62 94 Nasal 2.0L Cannula 12/17 1738 98.8 102 20 119/59 94 Room Air 12/17 1733 96 Nasal 2.0L Cannula 12/17 1535 94 2.0L 12/17 1530 101.8 12/17 1502 101.8 12/17 1453 103.9 128 25 134/65 93 Nasal 2.0L Cannula Intake & Output 12/18 1600 12/18 0800 12/18 0000 12/17 1600 12/17 0800 12/17 0000 Intake Total 700 1200 Output Total 600 Balance 700 600 Intake, IV 450 1100 Intake, Oral 250 100 Output, Urine 600 Patient 110 lb 99 lb 15.99 oz Weight Weight Estimated Estimated Measurement Method Physical Exam: She is elderly appearing female in no acute distress but mildly dyspneic. HEENT exam is normal Chest reveals decreased breath sounds Heart reveals regular rhythm with no murmurs Abdomen is benign Extremities reveal no edema Labs/Mannie Results: Laboratory Tests 12/18 12/17 0340 1925 Chemistry Sodium (137 - 145 mmol/L) 136 L Potassium (3.5 - 5.1 mmol/L) 3.9 Chloride (98 - 107 mmol/L) 103 Carbon Dioxide (22 - 30 mmol/L) 26 Anion Gap (5 - 16) 8 BUN (7 - 17 mg/dL) 9 Creatinine (0.5 - 1.0 mg/dL) 0.5 Estimated GFR (>60 ml/min) > 60 BUN/Creatinine Ratio (7 - 25 %) 18.0 Total Bilirubin (0.2 - 1.3 mg/dL) 0.5 Direct Bilirubin (< 0.4 mg/dL) 0.3 AST (14 - 36 U/L) 29 ALT (9 - 52 U/L) 55 H Alkaline Phosphatase (<127 U/L) 68 Total Protein (6.3 - 8.2 g/dL) 4.7 L Albumin (3.5 - 5.0 g/dL) 2.5 L Hematology CBC w Diff MAN DIFF ORDERED WBC (4.8 - 10.8 /CUMM) 14.7 H RBC (4.20 - 5.40 /CUMM) 4.11 L Hgb (12.0 - 16.0 G/DL) 11.8 L Hct (37 - 47 %) 35.5 L MCV (81.0 - 99.0 FL) 86.5 MCH (27.0 - 31.0 PG) 28.8 RDW (11.5 - 14.5 %) 16.3 H Plt Count (130 - 400 /CUMM) 223 MPV (7.4 - 10.4 FL) 7.5 Gran % (42.2 - 75.2 %) 96.3 H Lymphocytes % (20.5 - 51.1 %) 0.6 L Monocytes % (1.7 - 9.3 %) 3.1 Eosinophils % (0 - 5 %) 0 Basophils % (0.0 - 2.0 %) 0 L Absolute Granulocytes (1.4 - 6.5 /CUMM) 14.2 H Segmented Neutrophils (42.2 - 75.2 %) 93 H Band Neutrophils (0.0 - 5.0 %) 4 Absolute Lymphocytes (1.2 - 3.4 /CUMM) 0.1 L Monocytes (1.7 - 9.3 %) 3 Absolute Monocytes (0.10 - 0.60 /CUMM) 0.5 Absolute Eosinophils (0.0 - 0.7 /CUMM) 0.0 Absolute Basophils (0.0 - 0.2 /CUMM) 0.0 Nucleated RBCs (0.0 - 0.0 /100WBC) 100 H Platelet Estimate (ADEQUATE) ADEQUATE Polychromasia 1+ Poikilocytosis 1+ Basophilic Stippling SLIGHT Ovalocytes 1+ Elliptocytes FEW PUBS MCHC (33.0 - 37.0 G/DL) 33.3 Urines Urinalysis LIGHT H Urine Color (YEL,AMB,STR) YEL Urine Clarity (CLEAR) CLEAR Urine pH (5.0 - 8.0) 6.0 Ur Specific [place] (1.001 - 1.035) 1.010 Urine Protein (NEG,<30 MG/DL) NEG Urine Ketones (NEG) NEG Urine Nitrite (NEG) NEG Urine Bilirubin (NEG) NEG Urine Urobilinogen (0.1 - 1.0 EU/dl) 0.2 Ur Leukocyte Esterase (NEG) NEG Ur Microscopic SEDIMENT EXAMINED Urine RBC (0 - 5 /HPF) 3-5 Urine WBC (0 - 2 /HPF) RARE Ur Epithelial Cells (NONE,FEW) FEW Urine Bacteria (NEG/NONE) RARE H Urine Mucus (FEW,NONE) RARE Urine Hemoglobin (NEG) TRACE-INTACT Urine Glucose (N MG/DL) NEG 12/17 12/17 12/17 1900 1512 1512 Chemistry Sodium (137 - 145 mmol/L) 136 L Potassium (3.5 - 5.1 mmol/L) 4.1 Chloride (98 - 107 mmol/L) 100 Carbon Dioxide (22 - 30 mmol/L) 25 Anion Gap (5 - 16) 11 BUN (7 - 17 mg/dL) 13 Creatinine (0.5 - 1.0 mg/dL) 0.7 Estimated GFR (>60 ml/min) > 60 BUN/Creatinine Ratio (7 - 25 %) 18.6 Glucose (65 - 99 mg/dL) 114 H Lactic Acid (0.7 - 2.1 mmol/L) 1.6 1.1 Calcium (8.4 - 10.2 mg/dL) 8.9 Total Bilirubin (0.2 - 1.3 mg/dL) 1.0 AST (14 - 36 U/L) 89 H ALT (9 - 52 U/L) 87 H Alkaline Phosphatase (<127 U/L) 109 Troponin I (< 0.11 ng/ml) < 0.01 Total Protein (6.3 - 8.2 g/dL) 6.6 Albumin (3.5 - 5.0 g/dL) 3.8 Globulin (1.9 - 4.2 gm/dL) 2.8 Albumin/Globulin Ratio (1.1 - 2.2 %) 1.4 Amylase (30 - 110 U/L) 33 Lipase (23 - 300 U/L) 15 L Hematology CBC w Diff MAN DIFF ORDERED WBC (4.8 - 10.8 /CUMM) 15.2 H RBC (4.20 - 5.40 /CUMM) 5.10 Hgb (12.0 - 16.0 G/DL) 14.4 Hct (37 - 47 %) 44.0 MCV (81.0 - 99.0 FL) 86.4 MCH (27.0 - 31.0 PG) 28.3 RDW (11.5 - 14.5 %) 16.4 H Plt Count (130 - 400 /CUMM) 297 MPV (7.4 - 10.4 FL) 7.4 Gran % (42.2 - 75.2 %) 92.0 H Lymphocytes % (20.5 - 51.1 %) 1.7 L Monocytes % (1.7 - 9.3 %) 6.2 Eosinophils % (0 - 5 %) 0 Basophils % (0.0 - 2.0 %) 0.1 Absolute Granulocytes (1.4 - 6.5 /CUMM) 13.9 H Segmented Neutrophils (42.2 - 75.2 %) 81 H Band Neutrophils (0.0 - 5.0 %) 6 H Absolute Lymphocytes (1.2 - 3.4 /CUMM) 0.3 L Lymphocytes (20.5 - 51.1 %) 5 L Monocytes (1.7 - 9.3 %) 8 Absolute Monocytes (0.10 - 0.60 /CUMM) 0.9 H Absolute Eosinophils (0.0 - 0.7 /CUMM) 0 Absolute Basophils (0.0 - 0.2 /CUMM) 0 Platelet Estimate (ADEQUATE) ADEQUATE Normochromic RBCs VERIFIED PUBS MCHC (33.0 - 37.0 G/DL) 32.7 L Diagnostic Data EKG Results Initial EKG shows sinus tachycardia with rightward axis and incomplete right bundle branch block. Follow-up EKG showed fibrillation at a moderate rate of 123 and was otherwise similar.. CXR Results PATIENT: JANEEN ALDANA PRESENT AGE: 76 PATIENT ACCOUNT NO: [id number] : 41 LOCATION: [facility] ORDERING PHYSICIAN: CECILIO BURNS SERVICE DATE: 12/17/169787 EXAM TYPE: RAD - XRY-CHEST XRAY, PA AND LATERAL EXAMINATION: XR CHEST CLINICAL INFORMATION: Shortness of breath. COMPARISON: Prior chest radiographs, most recently 12/14/2016; CTA thorax dated 08/31/2016. TECHNIQUE: 2 views of the chest were obtained. FINDINGS: The heart, great vessels, pulmonary vasculature mediastinum are stable. There is severe emphysematous changes with marked biapical lucency and hyperinflation. No definite pneumothorax is seen. There is dense plate-like atelectasis in the left upper lobe. There is a small left pleural effusion. No acute osseous abnormality seen. IMPRESSION: There are diffuse emphysematous changes. There is interim appearance of dense left upper lobe platelike atelectasis. Recommend short term follow-up chest radiographs to ensure clearance and exclude the possibility of underlying obstructive process. A small left pleural effusion is seen. DICTATED BY: JOSE ANTONIO FARAH MD DATE/TIME DICTATED:12/17/161552 COLLISION REPAIRER:AMANDA DATE/TIME TRANSCRIBED:12/17/161552 CONFIDENTIAL, DO NOT COPY WITHOUT APPROPRIATE AUTHORIZATION. <Electronically signed in Other Vendor System> SIGNED BY: JOSE ANTONIO FARAH MD 12/17/16 1601 Assessment/Plan Assessment/Plan The patient has had another brief episode of atrial fibrillation. However she is back in sinus rhythm at this time. This was probably just due to exacerbation of COPD. She has 1 negative troponin. I recommend continuing her on Eliquis, Multaq, diltiazem for now. She does not need another echocardiogram at this time. Consult Acknowledgment - Thank you for your consult request.
[2016-12-18 16:00] VITALS: BP 100/60; BP 92/50
--- NOTE | 2016-12-18 20:46 | Admission Certification ---
Admission Certification Certification Statement - As attending physician, I certify that at the time of - admission, based on clinical presentation, severity of - symptoms, need for further diagnostic testing and - therapeutic interventions, and risk of adverse outcomes - without in-hospital treatment, in my clinical assessment, - this patient requires an acute hospital stay for a minimum - of two nights or longer. I have also considered psychsocial - factors such as support system, advanced age, financial - issues, cognitive issues, and failed out-patient treatments, - past re-admission history, safety of patient, and lack of - compliance as applicable. Specific rationale supporting this admission is: Exacerbation of her COPD, diarrhea and abdominal pain possibly from doxycycline in atrial fibrillation
--- NOTE | 2016-12-18 20:48 | PN- Att Addend ---
Attending Addendum Attending Brief Note 76-year-old white female with history of COPD on home oxygen history of lung cancer status post radiation in atrial fibrillation on [place] anticoagulation who comes into the ER a couple of times exacerbation of COPD was started on doxycycline prednisone she felt jittery from the prednisone and after complaint of abdominal pain and diarrhea assumably from the antibiotic. Patient was admitted while in the hospital again. Of rapid atrial fibrillation treated medically. This morning she was feeling better was again in normal sinus rhythm was seen by cardiology will be seen by pulmonary Current Medications Sig/Kirill Start time Last Medication Dose Route Stop Time Status Admin Acetaminophen 650 MG Q6P PRN 12/17 2214 AC PO Albuterol Sulfate 3 ML EVERY 4 HRS/AWAKE 12/18 1200 AC 12/18 INH 1855 Apixaban 2.5 MG BID 12/17 2199 AC 12/18 PO 1033 Azithromycin 500 MG DAILY@12/18 170 AC 12/18 Sodium Chloride 250 ML IV 1551 Budesonide/ 2 PUF BID 12/17 2199 AC 12/18 Formoterol Fumarate INH 1031 Ceftriaxone Sodium 1,000 MG DAILY@12/18 1700 AC 12/18 IV 1551 Diltiazem HCl 15 MG ONCE ONE 12/18 0130 CAN IV PUSH 12/18 0131 Diltiazem HCl 90 MG DAILY 12/17 193 AC 12/18 PO 1033 Dronedarone 400 MG BID 12/17 2199 AC 12/18 PO 1033 Guaifenesin 600 MG Q12 12/18 1144 AC 12/18 PO 1212 Guaifenesin 10 ML Q4P PRN 12/17 1944 AC PO Melatonin 5 MG AT BEDTIME 12/17 2199 AC PO Methylprednisolone 40 MG Q8 12/17 1944 AC 12/18 IV 12/21 1401 1343 Potassium Chloride 10 MEQ ONCE ONE 12/18 0600 DC 12/18 PO 12/18 0601 0601 Sodium Chloride 1,000 ML Q20H 12/17 1944 DC 12/17 IV 12/18 1544 2059 Tiotropium [place] 1 PUF DAILY 12/18 1931 AC 12/18 INH 1032 Laboratory Tests 12/18/16 0340: Anion Gap 8, Estimated GFR > 60, BUN/Creatinine Ratio 18.0, Total Bilirubin 0.5, Direct Bilirubin 0.3, AST 29, ALT 55 H, Alkaline Phosphatase 68, Total Protein 4.7 L, Albumin 2.5 L, CBC w Diff MAN DIFF ORDERED, RBC 4.11 L, MCV 86.5, MCH 28.8, RDW 16.3 H, MPV 7.5, Gran % 96.3 H, Lymphocytes % 0.6 L, Monocytes % 3.1, Eosinophils % 0, Basophils % 0 L, Absolute Granulocytes 14.2 H, Segmented Neutrophils 93 H, Band Neutrophils 4, Absolute Lymphocytes 0.1 L, Monocytes 3, Absolute Monocytes 0.5, Absolute Eosinophils 0.0, Absolute Basophils 0.0, Nucleated RBCs 100 H, Platelet Estimate ADEQUATE, Polychromasia 1+, Poikilocytosis 1+, Basophilic Stippling SLIGHT, Ovalocytes 1+, Elliptocytes FEW, PUBS MCHC 33.3 12/17/165: Urinalysis LIGHT H, Urine Color YEL, Urine Clarity CLEAR, Urine pH 6.0, Ur Specific [place] 1.010, Urine Protein NEG, Urine Ketones NEG, Urine Nitrite NEG, Urine Bilirubin NEG, Urine Urobilinogen 0.2, Ur Leukocyte Esterase NEG, Ur Microscopic SEDIMENT EXAMINED, Urine RBC 3-5, Urine WBC RARE, Ur Epithelial Cells FEW, Urine Bacteria RARE H, Urine Mucus RARE, Urine Hemoglobin TRACE- INTACT, Urine Glucose NEG 12/17/16 1900: Lactic Acid 1.6 12/17/16 1512: Lactic Acid 1.1 12/17/16 1512: Anion Gap 11, Estimated GFR > 60, BUN/Creatinine Ratio 18.6, Glucose 114 H, Calcium 8.9, Total Bilirubin 1.0, AST 89 H, ALT 87 H, Alkaline Phosphatase 109 , Troponin I < 0.01, Total Protein 6.6, Albumin 3.8, Globulin 2.8, Albumin/ Globulin Ratio 1.4, Amylase 33, Lipase 15 L, CBC w Diff MAN DIFF ORDERED, RBC 5.10, MCV 86.4, MCH 28.3, RDW 16.4 H, MPV 7.4, Gran % 92.0 H, Lymphocytes % 1.7 L, Monocytes % 6.2, Eosinophils % 0, Basophils % 0.1, Absolute Granulocytes 13.9 H, Segmented Neutrophils 81 H, Band Neutrophils 6 H, Absolute Lymphocytes 0.3 L, Lymphocytes 5 L, Monocytes 8, Absolute Monocytes 0.9 H, Absolute Eosinophils 0, Absolute Basophils 0, Platelet Estimate ADEQUATE, Normochromic RBCs VERIFIED, PUBS MCHC 32.7 L Microbiology 12/17 2030 NASOPHARYN: Influenza Virus A & B Rapid Smear - COMP Microbiology Date/Time Procedure - Status Source Growth 12/18 229 Surveillance Culture - RECD UPPER RESP Vital Signs Date Time Temp Pulse Resp B/P B/P Pulse O2 O2 Flow FiO2 Mean Ox Delivery Rate 12/18 1900 95 Nasal 3.0L Cannula 12/18 1812 99.0 12/18 1600 98 Nasal 3.0L Cannula 12/18 1600 99.0 80 22 92/50 98 Nasal 3.0L Cannula 12/18 1600 94 Nasal 3.0L Cannula 12/18 1600 88 24 100/60 94 Nasal 3.0L Cannula Intake & Output 12/18 1600 Intake Total 1000 Output Total Balance 1000 Intake, IV 400 Intake, Oral 600 Number 0 Bowel Movements
[2016-12-19] VITALS: BP 100/54
--- NOTE | 2016-12-19 01:21 | NUR ---
PT ALERT AND ORIENTED, DENIES PAIN AT THIS TIME. NSR 80'S, MANUAL BP 100/54. SATURATION 94% ON 3L O2, LUNGS SOUND CLEAR.
[2016-12-19 04:57] LABS: ABSOLUTE BASOPHIL COUNT 0 /CUMM (0.0-0.2); ABSOLUTE EOSINOPHIL COUNT 0 /CUMM (0.0-0.7); ABSOLUTE GRANULOCYTE CT 11.5 /CUMM (1.4-6.5); ABSOLUTE LYMPH COUNT 0.1 /CUMM (1.2-3.4); ABSOLUTE MONOCYTE COUNT 0.4 /CUMM (0.10-0.60); BASOPHIL % 0 % (0.0-2.0); EOSINOPHIL % 0 % (0-5); GRANULOCYTE % 95.7 % (42.2-75.2); HEMATOCRIT 32.3 % (37-47); MEAN CORPUSCULAR HGB 28.7 PG (27.0-31.0); MEAN CORPUSCULAR HGB CONC 33.1 G/DL (33.0-37.0); MEAN CORPUSCULAR VOLUME 86.5 FL (81.0-99.0); MEAN PLATELET VOLUME 7.6 FL (7.4-10.4); PLATELET COUNT 223 /CUMM (130-400); RBC DISTRIBUTION WIDTH 16.4 % (11.5-14.5); RED BLOOD CELL CT 3.73 /CUMM (4.20-5.40)
--- NOTE | 2016-12-19 06:59 | PN- Housestaff ---
Subjective Follow-up For: Sepsis CAP Abdominal pain, diarrhea Atrial fibrillation Complaints: no complaints Tele-Events Since Last Visit: No significant telemetry events. Subjective: Patient seen and examined at bedside this AM. She is resting comfortably in bed without complaint. She continues to sound rhonchorous but appears in no acute distress. Patient denies chest pain but admits to cough and mild shortness of breath. Review of Systems Constitutional: Denies: chills, fever. EENTM: Reports: nasal congestion. Denies: visual changes, hearing changes. Cardiovascular: Denies: chest pain, palpitations. Respiratory: Reports: cough, short of breath. Gastrointestinal: Denies: abdominal pain, nausea. Genitourinary: Denies: dysuria, hesitation. Musculoskeletal: Denies: joint pain. Skin: Denies: rash. Neurological/Psychological: Denies: confusion, headache. Hematologic/Endocrine: Denies: bruising, bleeding. Objective Last 24 Hrs of Vital Signs/I&O Vital Signs Date Time Temp Pulse Resp B/P B/P Pulse O2 O2 Flow FiO2 Mean Ox Delivery Rate 12/19 1006 82 106/50 12/19 0802 95 Nasal 2.0L Cannula 12/19 0000 94 Nasal 3.0L Cannula 12/19 0000 96.4 84 22 100/54 94 Nasal 3.0L Cannula 12/18 2238 98.4 77 21 88/50 12/18 1900 95 Nasal 3.0L Cannula 12/18 1812 99.0 12/18 1600 98 Nasal 3.0L Cannula 12/18 1600 99.0 80 22 92/50 98 Nasal 3.0L Cannula 12/18 1600 94 Nasal 3.0L Cannula 12/18 1600 88 24 100/60 94 Nasal 3.0L Cannula 12/18 1239 Nasal 3.0L Cannula Intake & Output 12/19 1600 12/19 0800 12/19 0000 Intake Total 100 500 Output Total 400 500 Balance -300 0 Intake, Oral 100 500 Output, Urine 400 500 Patient 110 lb Weight Physical Exam General Appearance: Alert, Oriented X3, Cooperative, No Acute Distress Skin: No Significant Lesion Skin Temp/Moisture Exam: Warm/Dry HEENT: Atraumatic, PERRLA, EOMI, Mucous Membr. moist/pink Neck: Supple, No JVD Lymphatic: Cervical nl Cardiovascular: Regular Rate, Normal S1, Normal S2 Lungs: Rhonchi bilaterally Abdomen: Normal Bowel Sounds, Soft, No Tenderness Neurological: Normal Speech, Normal Tone Extremities: No Clubbing, No Cyanosis, No Edema Vascular: Pulses Symmetrical Current Medications: Current Medications Sig/Kirill Start time Last Medication Dose Route Stop Time Status Admin Acetaminophen 650 MG Q6P PRN 12/17 221 AC PO Albuterol Sulfate 3 ML EVERY 4 HRS/AWAKE 12/18 1200 AC 12/19 INH 0743 Apixaban 2.5 MG BID 12/17 2199 AC 12/19 PO 1011 Azithromycin 500 MG DAILY@1700 12/18 1700 DC 12/18 Sodium Chloride 250 ML IV 1551 Benzonatate 100 MG TID PRN 12/19 0900 AC PO Budesonide/ 2 PUF BID 12/17 2199 AC 12/19 Formoterol Fumarate INH 1004 Ceftazidime 1,000 MG Q12 12/19 1000 AC 12/19 IV 1012 Ceftriaxone Sodium 1,000 MG DAILY@1700 12/18 1700 DC 12/18 IV 1551 Diltiazem HCl 90 MG DAILY 12/17 193 AC 12/19 PO 1006 Dronedarone 400 MG BID 12/17 2199 AC 12/19 PO 1010 Guaifenesin 600 MG Q12 12/18 1144 AC 12/19 PO 1006 Guaifenesin 10 ML Q4P PRN 12/17 1944 DC PO Melatonin 5 MG AT BEDTIME 12/17 2199 AC 12/18 PO 2233 Methylprednisolone 40 MG Q12 12/19 1000 AC 12/19 IV 12/22 1001 1004 Methylprednisolone 40 MG Q8 12/17 1944 DC 12/19 IV 12/21 1401 0512 Potassium Chloride 40 MEQ ONCE ONE 12/19 0615 DC 12/19 PO 12/19 0616 1011 Sodium Chloride 1,000 ML Q20H 12/17 1944 DC 12/17 IV 12/18 1544 2059 Tiotropium [place] 1 PUF DAILY 12/18 1931 AC 12/19 INH 1005 Last 24 Hrs of Lab/Mannie Results Last 24 Hrs of Labs/Mics: Laboratory Tests 12/19/16 0420: Anion Gap 7, Estimated GFR > 60, Glucose 152 H, Calcium 8.0 L, Phosphorus 2.9, Magnesium 2.2, Total Bilirubin 0.3, AST 17, ALT 54 H, Albumin 2.5 L, CBC w Diff MAN DIFF ORDERED, RBC 3.73 L, MCV 86.5, MCH 28.7, RDW 16.4 H, MPV 7.6, Gran % 95.7 H, Lymphocytes % 0.8 L, Monocytes % 3.5, Eosinophils % 0, Basophils % 0 L, Absolute Granulocytes 11.5 H, Absolute Lymphocytes 0.1 L, Absolute Monocytes 0.4, Absolute Eosinophils 0, Absolute Basophils 0, Platelet Estimate ADEQUATE, Hypochromic-Microcytic 1+, Anisocytosis 1+, Ovalocytes 1+, PUBS MCHC 33.1 Microbiology 12/19 842 LOWER RESP: Respiratory Culture - ORD 12/19 842 LOWER RESP: Gram Stain - ORD Assessment/Plan Assessment: Ms. Aldana is a 76 year old female with PMH COPD on 2 L home O2, lung cancer s/p radiation currently in remission, atrial fibrillation diagnosed in August on Eliquis and anxiety who presents to [facility] with chief complaint of crampy lower abdominal pain and diarrhea 2 days after initiating doxycycline therapy for presumed pneumonia. Janeen presented to the ED 3 days prior to admission with fever, increased wheezing, congestion and shortness of breath requiring increased use of her rescue inhalers. She was sent home on doxycycline and prednisone since as she refused to be admitted at that time. She returned on for evaluation of new-onset crampy abdominal pain and diarrhea. Vital signs in the ED: T 103.9, HR 128, RR 25, BP 134/65 and O2 saturation 93% on 2 L NC. Labs were significant for: WBC 15.2, 92% granulocytes, 6 bands, H&H 14.4/44, Plt 297, Na 136, K 4.1, Cl 100, HCO3 25, BUN 13, cre 0.7, Gli 114, lactic acid 1, AST 89, ALT 87, troponin <0.01, amylase 33, lipase 15 and UA without infection. CXR showed diffuse emphysematous changes with dense BRIANA platelike atelectasis. Small left pleural effusion. CT abdomen/pelvis showed 4 mm nonobstructive left renal calculus. No evidence for bowel obstruction. Patient was admitted to the general medicine floor, was found to be tachycardic to the 140s and in mild respiratory distress. She was transferred to the ICU as a telemetry hold and the following is the current management: 1. Sepsis secondary to likely community-acquired PNA in the setting of COPD * On admission, patient febrile 103.9, tachycardia to 128, WBC 15.2 with bands and suspected source of infection PNA (CT abdomen showed airpsace disease with left pleural effusion) * F/U CDiff, LRC, BC x 2; urine negative for legionella and strep antigens * Continue IV azithromycin 500 mg daily and switch ceftriaxone to ceftazidime as patient has grown pseudomonas in the past * Trend CBC * Total respiratory care evaluation/treatment * Pulmonary consult with Dr. Guevara appreciated * Obtain CT chest today * Continue IV solumedrol but reduce to 40 mg Q12, symbicort 1 puff daily 2. Abdominal pain and diarrhea * DDx includes CDiff vs adverse drug reaction vs gastroenteritis * Hold doxycycline * Patient has had no loose bowel movement, send stool for CDiff if there is a noted BM 3. Atrial fibrillation on Eliquis * Continuous telemetry monitoring * Continue Eliquis 2.5 mg PO BID * Continue rate control with Diltiazem SR 90 mg PO daily * Dronedarone 400 mg PO BID * Cardio consult with Dr. Dimitrios MD appreciated FULL CODE DVTP: Eliquis and ALPS Regular diet Mild pain pathway Problem List: 1. Adverse drug reaction 2. Abdominal pain 3. Pneumonia 4. Atrial fibrillation Pain Ratin Pain Location: n/a Pain Goal: Remain pain free Pain Plan: Per pain pathway Tomorrow's Labs & Rationales: CBC (leukocytosis) BEP
[2016-12-19 08:00] VITALS: BP 106/50
--- NOTE | 2016-12-19 08:17 | Cons- Pulmonary ---
General Information and HPI Consulting Request Date of Consult: 12/19/16 Requested By: sukh Reason for Consult: Shortness of breath pneumonia History of Present Illness: Patient is 76-year-old recently admitted for COPD exacerbation. She was seen in the emergency room on for shortness of breath discharged on prednisone and doxycycline chest x-ray showed no acute changes she subsequently developed increased shortness breath diarrhea and returned on Sunday where chest x-ray now showed left upper and left lower lobe infiltrates associated with pleural effusion. She had evidence of leukocytosis and mild left shift. Allergies/Medications Allergies: Coded Allergies: levofloxacin (Mild, LEGS FELT TIGHT 12/17/16) amoxicillin (ANAPHYLAXIS 12/17/16) clarithromycin (UNKNOWN - PT DOESNT REMEMBER WAS TOLD BY MD NOT TO TAKE 12/17/16 ) Home Med List: Albuterol Sulfate 0.63 MG/3 ML VIAL.NEB 1 Vial INH/AMOS TID COPD (Reported) Reason to Stop at ADM:[facility] ORDERS Albuterol Sulfate (Proair Respiclick) 90 MCG AER.POW.BA 2 PUFF INH Q4-6 PRN COPD Reason to Stop at ADM: [facility] ORDERS Apixaban (Eliquis) 2.5 MG TABLET 1 TAB PO BID BLOOD THINNER (Reported) Diltiazem HCl (Diltiazem 12HR ER) 90 MG CAP.ER.12H 1 CAP PO DAILY HEART ( Reported) Doxycycline Hyclate 100 MG CAPSULE 1 CAP PO BID BRONCHITIS Dronedarone HCl (Multaq) 400 MG TABLET 400 MG PO BID Atrial fibrillation Fluticasone/Salmeterol (Advair 250-50 Diskus) 1 EACH BLST.W.DEV 1 PUF INH BID COPD (Reported) Reason to Stop at ADM: [facility] ORDERS Linaclotide (Linzess) 145 MCG CAPSULE 1 CAP PO PRN GI (Reported) Prednisone 10 MG TABLET 1 TAB PO AD COPD DAY1/DAY2 FOUR TABS DAY3/DAY4 THREE TABS DAY5/DAY6 TWO TABS DAY7 ONE TAB Sodium Chloride (Saline Nasal [place]) (Unknown Strength) SPRAY (Unknown Dose) NASB PRN NASAL CONGESTION (Reported) Tiotropium [place] (Spiriva) 18 MCG CAP.W.DEV 1 CAP INH DAILY COPD (Reported) Reason to Stop at ADM: [facility] ORDER Review of Systems Review of Systems Constitutional: Reports: fever, weakness. Denies: chills. Cardiovascular: Denies: chest pain, edema. Respiratory: Reports: cough, short of breath. Denies: hemoptysis. GI: Reports: abdominal pain, diarrhea. Denies: melena. Past History Travel History Traveled to [place] past 21 day No Medical History Blood Transfusion Hx: No Neurological: dizziness EENT: allergies, POST NASAL DRIP Cardiovascular: AFIB, PT ON ELIQUIS Respiratory: COPD, emphysema, pneumonia, 1.5 - 2L O2 DEPENDENT Gastrointestinal: NONE Hepatic: NONE Renal: NONE Musculoskeletal: osteoporosis Psychiatric: anxiety Endocrine: NONE Blood Disorders: NONE Cancer(s): LEFT LUNG S/P RADIATION SEPTEMBER 2015 CLINICAL DIETITIAN/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 MOTHER FH: breast cancer Psychosocial History Where Do You Live? Home Who Do You Live With? child Services at Home: Nursing, Oxygen Primary Language: Nepali Smoking Status: Former Smoker ETOH Use: occasional use Illicit Drug Use: denies illicit drug use Living Will? yes Functional Ability ADLs Independent: dressing, eating, toileting, bathing. Ambulation: independent IADLs Independent: finances, telephone, medication admin. Needs Assist: shopping, housework, food prep, transportation. Exam & Diagnostic Data Last 24 Hrs of Vital Signs/I&O Vital Signs Date Time Temp Pulse Resp B/P B/P Pulse O2 O2 Flow FiO2 Mean Ox Delivery Rate 12/19 0802 95 Nasal 2.0L Cannula 12/19 0000 94 Nasal 3.0L Cannula 12/19 0000 96.4 84 22 100/54 94 Nasal 3.0L Cannula 12/18 2238 98.4 77 21 88/50 12/18 1900 95 Nasal 3.0L Cannula 12/18 1812 99.0 12/18 1600 98 Nasal 3.0L Cannula 12/18 1600 99.0 80 22 92/50 98 Nasal 3.0L Cannula 12/18 1600 94 Nasal 3.0L Cannula 12/18 1600 88 24 100/60 94 Nasal 3.0L Cannula 12/18 1239 Nasal 3.0L Cannula 12/18 1033 83 98/60 12/18 1033 81 98/60 Intake & Output 12/19 1600 12/19 0800 12/19 0000 Intake Total 100 500 Output Total 400 500 Balance -300 0 Intake, Oral 100 500 Output, Urine 400 500 L4 woman on 2 L nasal oxygen HEENT exam shows no adenopathy exam for chest shows diminished breath sounds are no wheezes or crackles heard. Cardiac exam shows a regular S1 and S2 abdomen is soft nontender extremities have multiple bruises but no edema Last 48 Hrs of Labs/Mannie: Laboratory Tests 12/19/16 0420: Anion Gap 7, Estimated GFR > 60, Glucose 152 H, Calcium 8.0 L, Phosphorus 2.9, Magnesium 2.2, Total Bilirubin 0.3, AST 17, ALT 54 H, Albumin 2.5 L, CBC w Diff MAN DIFF ORDERED, RBC 3.73 L, MCV 86.5, MCH 28.7, RDW 16.4 H, MPV 7.6, Gran % 95.7 H, Lymphocytes % 0.8 L, Monocytes % 3.5, Eosinophils % 0, Basophils % 0 L, Absolute Granulocytes 11.5 H, Absolute Lymphocytes 0.1 L, Absolute Monocytes 0.4, Absolute Eosinophils 0, Absolute Basophils 0, Platelet Estimate ADEQUATE, Hypochromic-Microcytic 1+, Anisocytosis 1+, Ovalocytes 1+, PUBS MCHC 33.1 12/18/16 0340: Anion Gap 8, Estimated GFR > 60, BUN/Creatinine Ratio 18.0, Total Bilirubin 0.5, Direct Bilirubin 0.3, AST 29, ALT 55 H, Alkaline Phosphatase 68, Total Protein 4.7 L, Albumin 2.5 L, CBC w Diff MAN DIFF ORDERED, RBC 4.11 L, MCV 86.5, MCH 28.8, RDW 16.3 H, MPV 7.5, Gran % 96.3 H, Lymphocytes % 0.6 L, Monocytes % 3.1, Eosinophils % 0, Basophils % 0 L, Absolute Granulocytes 14.2 H, Segmented Neutrophils 93 H, Band Neutrophils 4, Absolute Lymphocytes 0.1 L, Monocytes 3, Absolute Monocytes 0.5, Absolute Eosinophils 0.0, Absolute Basophils 0.0, Nucleated RBCs 100 H, Platelet Estimate ADEQUATE, Polychromasia 1+, Poikilocytosis 1+, Basophilic Stippling SLIGHT, Ovalocytes 1+, Elliptocytes FEW, PUBS MCHC 33.3 12/17/16 1925: Urinalysis LIGHT H, Urine Color YEL, Urine Clarity CLEAR, Urine pH 6.0, Ur Specific [place] 1.010, Urine Protein NEG, Urine Ketones NEG, Urine Nitrite NEG, Urine Bilirubin NEG, Urine Urobilinogen 0.2, Ur Leukocyte Esterase NEG, Ur Microscopic SEDIMENT EXAMINED, Urine RBC 3-5, Urine WBC RARE, Ur Epithelial Cells FEW, Urine Bacteria RARE H, Urine Mucus RARE, Urine Hemoglobin TRACE- INTACT, Urine Glucose NEG 12/17/16 1900: Lactic Acid 1.6 12/17/16 1512: Lactic Acid 1.1 12/17/16 1512: Anion Gap 11, Estimated GFR > 60, BUN/Creatinine Ratio 18.6, Glucose 114 H, Calcium 8.9, Total Bilirubin 1.0, AST 89 H, ALT 87 H, Alkaline Phosphatase 109 , Troponin I < 0.01, Total Protein 6.6, Albumin 3.8, Globulin 2.8, Albumin/ Globulin Ratio 1.4, Amylase 33, Lipase 15 L, CBC w Diff MAN DIFF ORDERED, RBC 5.10, MCV 86.4, MCH 28.3, RDW 16.4 H, MPV 7.4, Gran % 92.0 H, Lymphocytes % 1.7 L, Monocytes % 6.2, Eosinophils % 0, Basophils % 0.1, Absolute Granulocytes 13.9 H, Segmented Neutrophils 81 H, Band Neutrophils 6 H, Absolute Lymphocytes 0.3 L, Lymphocytes 5 L, Monocytes 8, Absolute Monocytes 0.9 H, Absolute Eosinophils 0, Absolute Basophils 0, Platelet Estimate ADEQUATE, Normochromic RBCs VERIFIED, PUBS MCHC 32.7 L Microbiology 12/18 0230 UPPER RESP: Surveillance Culture - COMP 12/17 2030 NASOPHARYN: Influenza Virus A & B Rapid Smear - COMP Assessment/Plan Impression/Plan: 76-year-old with severe oxygen dependent COPD chronic hypoxic respiratory failure admitted with increasing shortness of breath and radiographic changes suspicious for left-sided pneumonia. 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 Given repeated cultures with Pseudomonas would consider changing to ceftaz . Obtain full CT scan of the chest. In view of anticoagulation would hold off on thoracentesis of small pleural effusion CT chest suggests either increased size or loculation Consult Acknowledgment - Thank you for your consult request.
--- NOTE | 2016-12-19 10:18 | PN- Att Addend ---
Attending Addendum Attending Brief Note Patient feeling a little better. Still a little short of breath and stated her blood pressure was a little low this morning. Her pulse rate is around 90 and regular, moving a little bit more air with oxygen on will continue IV antibiotic therapy was adjusted by pulmonary , follow up labs my will have a repeat CAT scan of the chest. Intake & Output 12/19 1600 12/19 0800 12/19 0000 12/18 1600 12/18 0800 12/18 0000 Intake Total 352 358 5704 700 1200 Output Total 400 500 600 Balance -300 0 1000 700 600 Intake, IV 080 891 3190 Intake, Oral 100 500 600 250 100 Number 0 Bowel Movements Output, Urine 400 500 600 Patient 110 lb 110 lb Weight Weight Estimated Measurement Method Laboratory Tests 12/19/16 0420: Anion Gap 7, Estimated GFR > 60, Glucose 152 H, Calcium 8.0 L, Phosphorus 2.9, Magnesium 2.2, Total Bilirubin 0.3, AST 17, ALT 54 H, Albumin 2.5 L, CBC w Diff MAN DIFF ORDERED, RBC 3.73 L, MCV 86.5, MCH 28.7, RDW 16.4 H, MPV 7.6, Gran % 95.7 H, Lymphocytes % 0.8 L, Monocytes % 3.5, Eosinophils % 0, Basophils % 0 L, Absolute Granulocytes 11.5 H, Absolute Lymphocytes 0.1 L, Absolute Monocytes 0.4, Absolute Eosinophils 0, Absolute Basophils 0, Platelet Estimate ADEQUATE, Hypochromic-Microcytic 1+, Anisocytosis 1+, Ovalocytes 1+, PUBS MCHC 33.1 12/18/16 0340: Anion Gap 8, Estimated GFR > 60, BUN/Creatinine Ratio 18.0, Total Bilirubin 0.5, Direct Bilirubin 0.3, AST 29, ALT 55 H, Alkaline Phosphatase 68, Total Protein 4.7 L, Albumin 2.5 L, CBC w Diff MAN DIFF ORDERED, RBC 4.11 L, MCV 86.5, MCH 28.8, RDW 16.3 H, MPV 7.5, Gran % 96.3 H, Lymphocytes % 0.6 L, Monocytes % 3.1, Eosinophils % 0, Basophils % 0 L, Absolute Granulocytes 14.2 H, Segmented Neutrophils 93 H, Band Neutrophils 4, Absolute Lymphocytes 0.1 L, Monocytes 3, Absolute Monocytes 0.5, Absolute Eosinophils 0.0, Absolute Basophils 0.0, Nucleated RBCs 100 H, Platelet Estimate ADEQUATE, Polychromasia 1+, Poikilocytosis 1+, Basophilic Stippling SLIGHT, Ovalocytes 1+, Elliptocytes FEW, PUBS MCHC 33.3 12/17/161924: Urinalysis LIGHT H, Urine Color YEL, Urine Clarity CLEAR, Urine pH 6.0, Ur Specific [place] 1.010, Urine Protein NEG, Urine Ketones NEG, Urine Nitrite NEG, Urine Bilirubin NEG, Urine Urobilinogen 0.2, Ur Leukocyte Esterase NEG, Ur Microscopic SEDIMENT EXAMINED, Urine RBC 3-5, Urine WBC RARE, Ur Epithelial Cells FEW, Urine Bacteria RARE H, Urine Mucus RARE, Urine Hemoglobin TRACE- INTACT, Urine Glucose NEG 12/17/16 1900: Lactic Acid 1.6 12/17/16 151: Lactic Acid 1.1 12/17/16 151: Anion Gap 11, Estimated GFR > 60, BUN/Creatinine Ratio 18.6, Glucose 114 H, Calcium 8.9, Total Bilirubin 1.0, AST 89 H, ALT 87 H, Alkaline Phosphatase 109 , Troponin I < 0.01, Total Protein 6.6, Albumin 3.8, Globulin 2.8, Albumin/ Globulin Ratio 1.4, Amylase 33, Lipase 15 L, CBC w Diff MAN DIFF ORDERED, RBC 5.10, MCV 86.4, MCH 28.3, RDW 16.4 H, MPV 7.4, Gran % 92.0 H, Lymphocytes % 1.7 L, Monocytes % 6.2, Eosinophils % 0, Basophils % 0.1, Absolute Granulocytes 13.9 H, Segmented Neutrophils 81 H, Band Neutrophils 6 H, Absolute Lymphocytes 0.3 L, Lymphocytes 5 L, Monocytes 8, Absolute Monocytes 0.9 H, Absolute Eosinophils 0, Absolute Basophils 0, Platelet Estimate ADEQUATE, Normochromic RBCs VERIFIED, PUBS MCHC 32.7 L Microbiology 12/18 229 UPPER RESP: Surveillance Culture - COMP 12/17 2030 NASOPHARYN: Influenza Virus A & B Rapid Smear - COMP 12/17 1924 URINE ROUT: Legionella Antigen - COMP 12/17 1924 URINE ROUT: Streptococcus pneumoniae Antigen (M - COMP 12/17 1924 URINE ROUT: Urine Culture - COMP Microbiology Date/Time Procedure - Status Source Growth 12/19 842 Respiratory Culture - ORD LOWER RESP 12/19 842 Gram Stain - ORD LOWER RESP Vital Signs Date Time Temp Pulse Resp B/P B/P Pulse O2 O2 Flow FiO2 Mean Ox Delivery Rate 12/19 1006 82 106/50 12/19 0802 95 Nasal 2.0L Cannula 12/19 0000 94 Nasal 3.0L Cannula 12/19 0000 96.4 84 22 100/54 94 Nasal 3.0L Cannula 12/18 2238 98.4 77 21 88/50 12/18 1900 95 Nasal 3.0L Cannula 12/18 1812 99.0 12/18 1600 98 Nasal 3.0L Cannula 12/18 1600 99.0 80 22 92/50 98 Nasal 3.0L Cannula 12/18 1600 94 Nasal 3.0L Cannula 12/18 1600 88 24 100/60 94 Nasal 3.0L Cannula 12/18 1239 Nasal 3.0L Cannula 12/18 1033 83 98/60 12/18 1033 81 98/60
--- NOTE | 2016-12-19 10:44 | PN- Cardiology ---
Subjective Subjective: The patient is feeling a little better. She has remained in sinus rhythm. She has no chest pain. Her respiratory status is improving. She is starting to bring up some sputum. Objective Vital Signs and I&Os Vital Signs Date Time Temp Pulse Resp B/P B/P Pulse O2 O2 Flow FiO2 Mean Ox Delivery Rate 12/19 1006 82 106/50 12/19 0802 95 Nasal 2.0L Cannula 12/19 0000 94 Nasal 3.0L Cannula 12/19 0000 96.4 84 22 100/54 94 Nasal 3.0L Cannula 12/18 2238 98.4 77 21 88/50 12/18 1900 95 Nasal 3.0L Cannula 12/18 1812 99.0 12/18 1600 98 Nasal 3.0L Cannula 12/18 1600 99.0 80 22 92/50 98 Nasal 3.0L Cannula 12/18 1600 94 Nasal 3.0L Cannula 12/18 1600 88 24 100/60 94 Nasal 3.0L Cannula 12/18 1239 Nasal 3.0L Cannula Intake & Output 12/19 1600 12/19 0800 12/19 0000 12/18 1600 12/18 0800 12/18 0000 Intake Total 214 066 3121 700 1200 Output Total 400 500 600 Balance -300 0 1000 700 600 Intake, IV 345 125 9234 Intake, Oral 100 500 600 250 100 Number 0 Bowel Movements Output, Urine 400 500 600 Patient 110 lb 110 lb Weight Weight Estimated Measurement Method Physical Exam: She is in no distress Chest reveals decreased breath sounds and some rhonchi Heart is regular with no murmurs Extremities no edema Current Medications: Current Medications Sig/Kirill Start time Last Medication Dose Route Stop Time Status Admin Acetaminophen 650 MG Q6P PRN 12/17 2215 AC PO Albuterol Sulfate 3 ML EVERY 4 HRS/AWAKE 12/18 1200 AC 12/19 INH 0743 Apixaban 2.5 MG BID 12/17 2199 AC 12/19 PO 1011 Azithromycin 500 MG DAILY@12/18 170 DC 12/18 Sodium Chloride 250 ML IV 1551 Benzonatate 100 MG TID PRN 12/19 0900 AC PO Budesonide/ 2 PUF BID 12/17 2199 AC 12/19 Formoterol Fumarate INH 1004 Ceftazidime 1,000 MG Q12 12/19 1000 AC 12/19 IV 1012 Ceftriaxone Sodium 1,000 MG DAILY@12/18 1700 DC 12/18 IV 1551 Diltiazem HCl 90 MG DAILY 12/17 193 AC 12/19 PO 1006 Dronedarone 400 MG BID 12/17 2199 AC 12/19 PO 1010 Guaifenesin 600 MG Q12 12/18 1144 AC 12/19 PO 1006 Guaifenesin 10 ML Q4P PRN 12/17 1944 DC PO Melatonin 5 MG AT BEDTIME 12/17 2199 AC 12/18 PO 2233 Methylprednisolone 40 MG Q12 12/19 1000 AC 12/19 IV 12/22 1001 1004 Methylprednisolone 40 MG Q8 12/17 1944 DC 12/19 IV 12/21 1401 0512 Potassium Chloride 40 MEQ ONCE ONE 12/19 0615 DC 12/19 PO 12/19 0616 1011 Sodium Chloride 1,000 ML Q20H 12/17 1944 DC 12/17 IV 12/18 1544 2059 Tiotropium [place] 1 PUF DAILY 12/18 1931 AC 12/19 INH 1005 Results Last 48 Hrs of Labs/Mics: Laboratory Tests 12/19/16 0420: Anion Gap 7, Estimated GFR > 60, Glucose 152 H, Calcium 8.0 L, Phosphorus 2.9, Magnesium 2.2, Total Bilirubin 0.3, AST 17, ALT 54 H, Albumin 2.5 L, CBC w Diff MAN DIFF ORDERED, RBC 3.73 L, MCV 86.5, MCH 28.7, RDW 16.4 H, MPV 7.6, Gran % 95.7 H, Lymphocytes % 0.8 L, Monocytes % 3.5, Eosinophils % 0, Basophils % 0 L, Absolute Granulocytes 11.5 H, Absolute Lymphocytes 0.1 L, Absolute Monocytes 0.4, Absolute Eosinophils 0, Absolute Basophils 0, Platelet Estimate ADEQUATE, Hypochromic-Microcytic 1+, Anisocytosis 1+, Ovalocytes 1+, PUBS MCHC 33.1 12/18/16 0340: Anion Gap 8, Estimated GFR > 60, BUN/Creatinine Ratio 18.0, Total Bilirubin 0.5, Direct Bilirubin 0.3, AST 29, ALT 55 H, Alkaline Phosphatase 68, Total Protein 4.7 L, Albumin 2.5 L, CBC w Diff MAN DIFF ORDERED, RBC 4.11 L, MCV 86.5, MCH 28.8, RDW 16.3 H, MPV 7.5, Gran % 96.3 H, Lymphocytes % 0.6 L, Monocytes % 3.1, Eosinophils % 0, Basophils % 0 L, Absolute Granulocytes 14.2 H, Segmented Neutrophils 93 H, Band Neutrophils 4, Absolute Lymphocytes 0.1 L, Monocytes 3, Absolute Monocytes 0.5, Absolute Eosinophils 0.0, Absolute Basophils 0.0, Nucleated RBCs 100 H, Platelet Estimate ADEQUATE, Polychromasia 1+, Poikilocytosis 1+, Basophilic Stippling SLIGHT, Ovalocytes 1+, Elliptocytes FEW, PUBS MCHC 33.3 12/17/161924: Urinalysis LIGHT H, Urine Color YEL, Urine Clarity CLEAR, Urine pH 6.0, Ur Specific [place] 1.010, Urine Protein NEG, Urine Ketones NEG, Urine Nitrite NEG, Urine Bilirubin NEG, Urine Urobilinogen 0.2, Ur Leukocyte Esterase NEG, Ur Microscopic SEDIMENT EXAMINED, Urine RBC 3-5, Urine WBC RARE, Ur Epithelial Cells FEW, Urine Bacteria RARE H, Urine Mucus RARE, Urine Hemoglobin TRACE- INTACT, Urine Glucose NEG 12/17/16 1900: Lactic Acid 1.6 12/17/16 1512: Lactic Acid 1.1 12/17/16 1512: Anion Gap 11, Estimated GFR > 60, BUN/Creatinine Ratio 18.6, Glucose 114 H, Calcium 8.9, Total Bilirubin 1.0, AST 89 H, ALT 87 H, Alkaline Phosphatase 109 , Troponin I < 0.01, Total Protein 6.6, Albumin 3.8, Globulin 2.8, Albumin/ Globulin Ratio 1.4, Amylase 33, Lipase 15 L, CBC w Diff MAN DIFF ORDERED, RBC 5.10, MCV 86.4, MCH 28.3, RDW 16.4 H, MPV 7.4, Gran % 92.0 H, Lymphocytes % 1.7 L, Monocytes % 6.2, Eosinophils % 0, Basophils % 0.1, Absolute Granulocytes 13.9 H, Segmented Neutrophils 81 H, Band Neutrophils 6 H, Absolute Lymphocytes 0.3 L, Lymphocytes 5 L, Monocytes 8, Absolute Monocytes 0.9 H, Absolute Eosinophils 0, Absolute Basophils 0, Platelet Estimate ADEQUATE, Normochromic RBCs VERIFIED, PUBS MCHC 32.7 L Microbiology 12/18 0230 UPPER RESP: Surveillance Culture - COMP 12/17 2030 NASOPHARYN: Influenza Virus A & B Rapid Smear - COMP 12/17 1924 URINE ROUT: Legionella Antigen - COMP 12/17 1924 URINE ROUT: Streptococcus pneumoniae Antigen (M - COMP 12/17 1924 URINE ROUT: Urine Culture - COMP Assessment/Plan Assessment/Plan The patient is remaining in sinus rhythm. I believe her atrial fibrillation was on the basis of exacerbation of COPD. Her medical regimen is satisfactory from a cardiac standpoint. I would just continue everything the same and we will keep her on telemetry for the time being. Continue telemetry? Yes
--- NOTE | 2016-12-19 15:52 | NUR ---
Referral received this am via electronic order picker/assembler. This patient is a 76 year old female, admitted to the hospital on 12/17/16 with COPD and Community Acquired Pneumonia. Patient lives in her own home in [place]; her adult son, Jb has been staying with her as he has recently been unemployed. Patient has been 02 dependent at home, and finds it difficult to get out of the house with her 02 cannister. Son is close to securing a new job and may need to relocate, thus making the prospect of transportation more daunting. Will review case with gearcase assembler and support efforts for discharge planning.
[2016-12-19 16:00] VITALS: BP 110/60
--- NOTE | 2016-12-19 17:00 | NUR ---
TRANSPORT HERE TO TAKE PATIENT TO CT, PATIENT VERY ANXIOUS,COUGHING CONTINUOUSLY SATS DOWN TO 70 % OXYGEN INCREASED TO 5L AND MD CALLED TO SEE PATIENT STAT. PATIENT DENIES CHEST PAIN. STAT PORTABLE CXR TAKEN. OXYGEN SAT IMPROVED AFTER PATIENT CALMED DOWN AND COUGHING STOPPED. CAT SCAN RESCHEDULED FOR 1829.
--- NOTE | 2016-12-19 17:30 | NUR ---
PATIENT NOW CALM, OXYGEN SAT 98%, OXYGEN RETURNED TO 3L/MIN VIA NASAL CANULA.
--- NOTE | 2016-12-19 18:10 | RADIOLOGY REPORT ---
EXAMINATION: XR PORTABLE CHEST CLINICAL INFORMATION: Decreased breath sounds in the right lower lobe. Increased work of breathing with shortness of breath. COMPARISON: 12/17/2016 TECHNIQUE: Portable frontal view of the chest was obtained. FINDINGS: Cardiac leads overlie the chest. Severe emphysema. Similar linear opacity in the left midlung. Small left pleural effusion is increased with basilar opacity. The right base is unchanged. No focal consolidation. No pneumothorax. The cardiomediastinal silhouette is unchanged. IMPRESSION: Emphysema. Increased small left pleural effusion with airspace opacity. Persistent left midlung linear opacity.
--- NOTE | 2016-12-19 19:00 | NUR ---
PATIENT TO CAT SCAN WITH THIS RN IN ATTENDANCE. PATIENT DID WELL AND TOLERATED PROCEDURE WELL. RETURNED TO ROOM AND PATIENT IS MUCH MORE RELAXED AND DOING WELL ON 3L OXYGEN. PATIENT EATING BROTH AT THIS TIME.
--- NOTE | 2016-12-19 21:07 | CT SCAN REPORT ---
EXAMINATION: CT CHEST WITHOUT CONTRAST CLINICAL INFORMATION: Respiratory failure. COMPARISON: Chest x-ray 12/19/2016. CTA of chest 08/31/2016. TECHNIQUE: Multidetector volumetric CT imaging of the chest was done. Axial MIP volume rendering provided. Sagittal and coronal reformatted images were obtained. No oral or intravenous contrast. DLP: 223.18 mGy-cm. FINDINGS: LUNGS: Severe emphysematous lucency of lungs primarily effecting upper lobes. There is consolidation with air bronchograms and volume loss in the left upper lobe extending from the jocelyn to the posterior left upper lobe and anterior left upper lobe along the major fissure. There is also consolidation/atelectasis with air bronchograms at the dependent left lower lobe. Left hilar difficult to assess given the presence of the lung consolidation and lack of IV contrast. The right lung is clear. MEDIASTINUM: Scattered vascular wall calcifications of the aorta. No bulky lymphadenopathy. There is mild dilatation of the thoracic esophagus. No inflammatory changes or fluid collections of the mediastinum. PLEURA: Moderate volume left pleural effusion at left lung base. No right pleural effusion. No pneumothorax. AXILLA: No bulky lymphadenopathy. UPPER ABDOMEN: Unremarkable. OSSEOUS STRUCTURES: Multilevel degenerative change of the spine with disc height narrowing and endplate spurs. Mild sclerotic change with mild compression deformity of the T7 vertebrae unchanged since prior CAT scan. IMPRESSION: 1. Severe emphysematous changes of the lung. 2. Left upper lobe and left lower lobe infiltrate/atelectasis with left pleural effusion.
[2016-12-19 23:00] VITALS: BP 120/70; BP 128/66
[2016-12-20 04:50] LABS: ABSOLUTE BASOPHIL COUNT 0 /CUMM (0.0-0.2); ABSOLUTE EOSINOPHIL COUNT 0 /CUMM (0.0-0.7); ABSOLUTE GRANULOCYTE CT 8.8 /CUMM (1.4-6.5); ABSOLUTE LYMPH COUNT 0.1 /CUMM (1.2-3.4); ABSOLUTE MONOCYTE COUNT 0.3 /CUMM (0.10-0.60); BASOPHIL % 0 % (0.0-2.0); EOSINOPHIL % 0 % (0-5); GRANULOCYTE % 95.4 % (42.2-75.2); HEMATOCRIT 35.8 % (37-47); MEAN CORPUSCULAR HGB CONC 32.5 G/DL (33.0-37.0); MEAN CORPUSCULAR VOLUME 86.4 FL (81.0-99.0); MEAN PLATELET VOLUME 7.1 FL (7.4-10.4); PLATELET COUNT 287 /CUMM (130-400); RBC DISTRIBUTION WIDTH 16.5 % (11.5-14.5); RED BLOOD CELL CT 4.15 /CUMM (4.20-5.40); WHITE BLOOD CELL COUNT 9.2 /CUMM (4.8-10.8)
--- NOTE | 2016-12-20 06:53 | PN- Housestaff ---
Subjective Follow-up For: Sepsis CAP Abdominal pain/diarrhea Complaints: no complaints Tele-Events Since Last Visit: NSR, No significant events. Subjective: Patient seen and examined at bedside this AM. She reports the nasal spray is helping to loosen secretions. She continues to endorse episodes of shortness of breath that resolve after a few minutes. SHe denies chest pain or palpitations. Review of Systems Constitutional: Denies: chills, fever. EENTM: Reports: nasal congestion. Denies: visual changes, eye pain. Cardiovascular: Denies: chest pain, palpitations. Respiratory: Reports: cough, short of breath. Denies: wheezing. Gastrointestinal: Denies: abdominal pain, nausea. Genitourinary: Denies: dysuria, hematuria. Musculoskeletal: Denies: back pain. Skin: Denies: rash. Neurological/Psychological: Denies: confusion, headache. Hematologic/Endocrine: Denies: bruising, bleeding. Immunologic/Allergic: Denies: splenectomy. Objective Last 24 Hrs of Vital Signs/I&O Vital Signs Date Time Temp Pulse Resp B/P B/P Pulse O2 O2 Flow FiO2 Mean Ox Delivery Rate 12/20 0904 97 Nasal 3.0L Cannula 12/20 0800 95 Nasal 3.0L Cannula 12/20 0800 96.1 78 24 120/70 95 Nasal 3.0L Cannula 12/20 0700 97.5 74 27 110/70 96 Nasal 3.0L Cannula 12/20 0045 96 Nasal 3.0L Cannula 12/20 0000 96 Nasal 3.0L Cannula 12/19 2300 97.8 75 22 120/70 96 Nasal 3.0L Cannula 12/19 2222 78 22 122/70 12/19 1610 95 Nasal 2.0L Cannula 12/19 1600 95 Nasal 3.0L Cannula 12/19 1600 98.9 88 22 110/60 96 Nasal 3.0L Cannula 12/19 1006 82 106/50 Intake & Output 12/20 1600 12/20 0800 12/20 0000 Intake Total 250 480 Output Total 420 Balance -170 480 Intake, Oral 250 480 Output, Urine 420 Physical Exam General Appearance: Alert, Oriented X3, Cooperative, No Acute Distress Skin: No Significant Lesion Skin Temp/Moisture Exam: Warm/Dry HEENT: Atraumatic, PERRLA, Mucous Membr. moist/pink Neck: Supple, No JVD Lymphatic: Cervical nl Cardiovascular: Regular Rate, Normal S1, Normal S2 Lungs: Decreased breath sounds bilateral bases, no wheezing or crackles Abdomen: Normal Bowel Sounds, Soft, No Hepatospenomegaly Neurological: Normal Speech, Normal Tone Extremities: No Clubbing, No Cyanosis, No Edema Vascular: Pulses Symmetrical Current Medications: Current Medications Sig/Kirill Start time Last Medication Dose Route Stop Time Status Admin Acetaminophen 650 MG Q6P PRN 12/17 2215 AC PO Albuterol Sulfate 3 ML EVERY 4 HRS/AWAKE 12/18 1200 AC 12/20 INH 0014 Apixaban 2.5 MG BID 12/17 220 AC 12/19 PO 2221 Benzonatate 100 MG TID PRN 12/19 0900 AC 12/19 PO 2221 Budesonide/ 2 PUF BID 12/17 2199 AC 12/19 Formoterol Fumarate INH 2223 Ceftazidime 1,000 MG Q12 12/19 1000 AC 12/19 IV 2222 Diltiazem HCl 90 MG DAILY 12/17 193 AC 12/19 PO 1006 Dronedarone 400 MG BID 12/17 220 AC 12/19 PO 2222 Guaifenesin 600 MG Q12 12/18 1144 AC 12/19 PO 2222 Melatonin 5 MG AT BEDTIME 12/17 220 AC 12/18 PO 2233 Methylprednisolone 40 MG Q12 12/19 1000 r 12/19 IV 12/21 0000 2222 Ondansetron HCl 4 MG ONCE ONE 12/19 1330 DC 12/19 IV 12/19 1331 1325 Prednisone 40 MG DAILY 12/21 1000 UNVr PO Sodium Chloride 2 SPRAY Q4P PRN 12/19 193 AC 12/19 MERLE 2219 Tiotropium [place] 1 PUF DAILY 12/17 193 AC 12/19 INH 1005 Last 24 Hrs of Lab/Mannie Results Last 24 Hrs of Labs/Mics: Laboratory Tests 12/20/16 0400: Anion Gap 9, Estimated GFR > 60, BUN/Creatinine Ratio 26.7 H, CBC w Diff NO MAN DIFF REQ, RBC 4.15 L, MCV 86.4, MCH 28.0, RDW 16.5 H, MPV 7.1 L, Gran % 95.4 H, Lymphocytes % 1.2 L, Monocytes % 3.4, Eosinophils % 0, Basophils % 0 L, Absolute Granulocytes 8.8 H, Absolute Lymphocytes 0.1 L, Absolute Monocytes 0.3, Absolute Eosinophils 0, Absolute Basophils 0, PUBS MCHC 32.5 L Orders Radiology Findings: CXR: IMPRESSION: Emphysema. Increased small left pleural effusion with airspace opacity. Persistent left midlung linear opacity. Miscellaneous Findings: Chest CT: IMPRESSION: 1. Severe emphysematous changes of the lung. 2. Left upper lobe and left lower lobe infiltrate/atelectasis with left pleural effusion. Assessment/Plan Assessment: Ms. Aldana is a 76 year old female with PMH COPD on 2 L home O2, lung cancer s/p radiation currently in remission, atrial fibrillation diagnosed in ura on Eliquis and anxiety who presents to [place] with chief complaint of crampy lower abdominal pain and diarrhea 2 days after initiating doxycycline therapy for presumed pneumonia. Janeen presented to the ED 3 days prior to admission with fever, increased wheezing, congestion and shortness of breath requiring increased use of her rescue inhalers. She was sent home on doxycycline and prednisone since as she refused to be admitted at that time. She returned on for evaluation of new-onset crampy abdominal pain and diarrhea. Vital signs in the ED: T 103.9, HR 128, RR 25, BP 134/65 and O2 saturation 93% on 2 L NC. Labs were significant for: WBC 15.2, 92% granulocytes, 6 bands, H&H 14.4/44, Plt 297, Na 136, K 4.1, Cl 100, HCO3 25, BUN 13, cre 0.7, Gli 114, lactic acid 1, AST 89, ALT 87, troponin <0.01, amylase 33, lipase 15 and UA without infection. CXR showed diffuse emphysematous changes with dense BRIANA platelike atelectasis. Small left pleural effusion. CT abdomen/pelvis showed 4 mm nonobstructive left renal calculus. No evidence for bowel obstruction. Patient was admitted to the general medicine floor, was found to be tachycardic to the 140s and in mild respiratory distress. She was transferred to the ICU as a telemetry hold and the following is the current management: 1. Sepsis secondary to likely community-acquired PNA in the setting of COPD * On admission, patient febrile 103.9, tachycardia to 128, WBC 15.2 with bands and suspected source of infection PNA (CT abdomen showed airpsace disease with left pleural effusion) * F/U CDiff, LRC, BC x 2 (so far NGTD); urine negative for legionella and strep antigens * Continue IV azithromycin 500 mg daily and ceftazidime as patient has grown pseudomonas in the past * Trend CBC * Total respiratory care evaluation/treatment * Pulmonary consult with Dr. Guevara appreciated * CT chest yesterday showed evere emphysema, BRIANA and LLL infiltrate/atelectasis with left pleural effusion * Continue IV solumedrol 40 mg Q12 but switch to PO prednisone tomorrow, continue symbicort 1 puff daily * OOBTC today 2. Abdominal pain and diarrhea * DDx includes adverse drug reaction vs gastroenteritis vs CDiff (low on differential as patient has not had loose BM since admission) * Hold doxycycline * Patient has had no loose bowel movement, send stool for CDiff if there is a noted BM 3. Atrial fibrillation on Eliquis * Continuous telemetry monitoring * Continue Eliquis 2.5 mg PO BID * Continue rate control with Diltiazem SR 90 mg PO daily * Dronedarone 400 mg PO BID * Cardio consult with Dr. Dimitrios MD appreciated * Will discuss with cardio if front desk monitor can be discontinued as patient is in NSR FULL CODE DVTP: Eliquis and ALPS Regular diet Mild pain pathway Problem List: 1. Abdominal pain 2. Adverse drug reaction 3. Pneumonia 4. History of lung cancer in adulthood 5. COPD (chronic obstructive pulmonary disease) Pain Ratin Pain Location: n/a Pain Goal: Remain pain free Pain Plan: Mild pain pathway Tomorrow's Labs & Rationales: CBC (sepsis) BEP
[2016-12-20 07:00] VITALS: BP 110/70
--- NOTE | 2016-12-20 07:54 | PN- Pulmonary ---
Subjective HPI/Critical Care Issues: Patient is more comfortable shortness breath is improved oxygen saturations improved. He T scan shows bilateral lobar infiltrates consistent with pneumonia and pleural effusion. Given improved white count empyema appears less likely. Objective Current Medications: Current Medications Sig/Kirill Start time Last Medication Dose Route Stop Time Status Admin Acetaminophen 650 MG Q6P PRN 12/17 2214 AC PO Albuterol Sulfate 3 ML EVERY 4 HRS/AWAKE 12/18 1200 AC 12/20 INH 0014 Apixaban 2.5 MG BID 12/17 2200 AC 12/19 PO 2221 Azithromycin 500 MG DAILY@1700 12/18 1700 DC 12/18 Sodium Chloride 250 ML IV 1551 Benzonatate 100 MG TID PRN 12/19 0900 AC 12/19 PO 2221 Budesonide/ 2 PUF BID 12/17 2199 AC 12/19 Formoterol Fumarate INH 2223 Ceftazidime 1,000 MG Q12 12/19 1000 AC 12/19 IV 2222 Ceftriaxone Sodium 1,000 MG DAILY@1700 12/18 1700 DC 12/18 IV 1551 Diltiazem HCl 90 MG DAILY 12/17 193 AC 12/19 PO 1006 Dronedarone 400 MG BID 12/17 2200 AC 12/19 PO 2222 Guaifenesin 600 MG Q12 12/18 1144 AC 12/19 PO 2222 Melatonin 5 MG AT BEDTIME 12/17 2199 AC 12/18 PO 2233 Methylprednisolone 40 MG Q12 12/19 1000 AC 12/19 IV 12/22 1001 2222 Methylprednisolone 40 MG Q8 12/17 1945 DC 12/19 IV 12/21 1401 0512 Ondansetron HCl 4 MG ONCE ONE 12/19 1330 DC 12/19 IV 12/19 1331 1325 Sodium Chloride 2 SPRAY Q4P PRN 12/19 193 AC 12/19 MERLE 2219 Tiotropium [place] 1 PUF DAILY 12/18 1931 AC 12/19 INH 1005 Vital Signs & I&O Last 24 Hrs of Vitals and I&O: Vital Signs Date Time Temp Pulse Resp B/P B/P Pulse O2 O2 Flow FiO2 Mean Ox Delivery Rate 12/20 0700 97.5 74 27 110/70 96 Nasal 3.0L Cannula 12/20 0045 96 Nasal 3.0L Cannula 12/20 0000 96 Nasal 3.0L Cannula 12/19 2300 97.8 75 22 120/70 96 Nasal 3.0L Cannula 12/19 2222 78 22 122/70 12/19 1610 95 Nasal 2.0L Cannula 12/19 1600 95 Nasal 3.0L Cannula 12/19 1600 98.9 88 22 110/60 96 Nasal 3.0L Cannula 12/19 1006 82 106/50 12/19 0802 95 Nasal 2.0L Cannula 12/19 0800 98 Nasal 3.0L Cannula 12/19 0800 99.3 75 22 106/50 98 Nasal 3.0L Cannula Intake & Output 12/20 0800 12/20 0000 12/19 1600 Intake Total 813 243 1118 Output Total 420 Balance -107 922 2812 Intake, IV 20 Intake, Oral 809 746 0268 Number 0 Bowel Movements Output, Urine 420 Patient 110 lb Weight Since saturation 3 L 96% exam for chest shows decreased breath sounds are no wheezes cardiac exam shows regular S1 and S2 without murmurs Impression/Plan Impression/Plan Impression/Plan: 76-year-old with severe oxygen dependent COPD chronic hypoxic respiratory failure admitted with increasing shortness of breath and radiographic changes suspicious for left-sided pneumonia. 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 Overall status appears improved she remains in normal sinus rhythm. Recommendations: Follow-up sputum C&S adjust antibiotics accordingly Taper FiO2 with improved saturations. Cardiology about discontinuing telemetry with jewish of normal sinus rhythm. Would hope to switch to oral prednisone tomorrow. Increase activity and ambulation.
[2016-12-20 08:00] VITALS: BP 120/70
--- NOTE | 2016-12-20 10:03 | PN- Cardiology ---
Subjective Subjective: The patient has not had any recurrence of atrial fibrillation. She remains in sinus rhythm. She states she had several episodes of difficulty breathing yesterday which she thinks may be related to respiratory treatments. According to nursing notes she did have a "coughing fit" last evening with desaturation. A chest x-ray did not show any significant changes. A CAT scan of the chest showed severe emphysema and left upper lobe and left lower lobe infiltrate/ atelectasis with left pleural effusion. She is feeling much better today and saturating reasonably well. Objective Vital Signs and I&Os Vital Signs Date Time Temp Pulse Resp B/P B/P Pulse O2 O2 Flow FiO2 Mean Ox Delivery Rate 12/20 0904 97 Nasal 3.0L Cannula 12/20 0800 95 Nasal 3.0L Cannula 12/20 08 96.1 78 24 120/70 95 Nasal 3.0L Cannula 12/20 0700 97.5 74 27 110/70 96 Nasal 3.0L Cannula 12/20 0045 96 Nasal 3.0L Cannula 12/20 0000 96 Nasal 3.0L Cannula 12/19 2300 97.8 75 22 120/70 96 Nasal 3.0L Cannula 12/19 2222 78 22 122/70 12/19 1610 95 Nasal 2.0L Cannula 12/19 1600 95 Nasal 3.0L Cannula 12/19 1600 98.9 88 22 110/60 96 Nasal 3.0L Cannula 12/19 1006 82 106/50 Intake & Output 12/20 1600 12/20 0800 12/20 0000 12/19 1600 12/19 0800 12/19 0000 Intake Total 954 601 8242 100 500 Output Total 420 400 500 Balance -867 015 8134 -300 0 Intake, IV 20 Intake, Oral 016 436 6386 100 500 Number 0 Bowel Movements Output, Urine 420 400 500 Patient 110 lb Weight Physical Exam: She is in no distress but mildly dyspneic. She is able to talk in short sentences. ENT exam normal Chest markedly decreased breath sounds but no rales, rhonchi or wheezes Heart regular rhythm no murmurs Extremities no edema Current Medications: Current Medications Sig/Kirill Start time Last Medication Dose Route Stop Time Status Admin Acetaminophen 650 MG Q6P PRN 12/17 2215 AC PO Albuterol Sulfate 3 ML EVERY 4 HRS/AWAKE .. 12/20 1216 AC INH Apixaban 2.5 MG BID 12/17 2199 AC 12/22 PO 0913 Benzonatate 100 MG TID PRN 12/19 0900 AC 12/21 PO 1228 Budesonide/ 2 PUF BID 12/17 2199 AC 12/22 Formoterol Fumarate INH 0905 Ceftazidime 1,000 MG Q12 12/19 1000 AC 12/22 IV 0918 Diltiazem HCl 90 MG DAILY 12/17 193 AC 12/22 PO 0913 Dronedarone 400 MG BID 12/17 2199 AC 12/22 PO 0914 Guaifenesin 600 MG Q12 12/18 1144 AC 12/22 PO 0913 Melatonin 5 MG AT BEDTIME 12/17 2199 AC 12/18 PO 2233 Prednisone 40 MG DAILY 12/21 1000 AC 12/22 PO 0913 Sodium Chloride 2 SPRAY Q4P PRN 12/19 1929 AC 12/19 MERLE 2219 Tiotropium [place] 1 PUF DAILY 12/18 1931 AC 12/22 INH 0914 Results Last 48 Hrs of Labs/Mics: Laboratory Tests 12/22/16 0415: Anion Gap 5, Estimated GFR > 60, BUN/Creatinine Ratio 31.7 H, CBC w Diff NO MAN DIFF REQ, RBC 4.05 L, MCV 85.6, MCH 28.2, RDW 15.9 H, MPV 6.6 L, Gran % 88.2 H, Lymphocytes % 2.9 L, Monocytes % 8.8, Eosinophils % 0.1, Basophils % 0 L, Absolute Granulocytes 5.8, Absolute Lymphocytes 0.2 L, Absolute Monocytes 0.6, Absolute Eosinophils 0, Absolute Basophils 0, PUBS MCHC 33.0 12/21/16 0455: Anion Gap 8, Estimated GFR > 60, BUN/Creatinine Ratio 34.3 H, CBC w Diff NO MAN DIFF REQ, RBC 4.28, MCV 86.0, MCH 28.2, RDW 16.4 H, MPV 7.3 L, Gran % 94.1 H, Lymphocytes % 1.8 L, Monocytes % 4.0, Eosinophils % 0.1, Basophils % 0 L, Absolute Granulocytes 6.5, Absolute Lymphocytes 0.1 L, Absolute Monocytes 0.3, Absolute Eosinophils 0, Absolute Basophils 0, PUBS MCHC 32.8 L Assessment/Plan Assessment/Plan The patient is remaining in sinus rhythm. I believe her atrial fibrillation was on the basis of exacerbation of COPD. Her medical regimen is satisfactory from a cardiac standpoint. Her respiratory status seems to be slowly improving. I think she can be transferred to a regular floor from a cardiac standpoint as her atrial fibrillation was fairly transient and she is protected by anticoagulation. She does not necessarily need telemetry monitoring at this time. Continue telemetry? No
--- NOTE | 2016-12-20 11:28 | NUR ---
PT OOB WITH PT. REQUIRES ASSISST OF ONE. PT HAS EXPRESSED NO DESIRE TO GO TO REHAB, BUT PREFERS PT AT HOME IF AVAILABLE.
[2016-12-20 16:00] VITALS: BP 108/60
--- NOTE | 2016-12-20 20:00 | PN- Att Addend ---
Attending Addendum Attending Brief Note Patient stated that she had a bad night. Last evening at several episodes of respiratory distress so the CAT scan had to be delayed. Apparently finally went to have the test and she states that he stands she does the respiratory treatments she "worse" and she didn't want to take any more this morning was seen by cardiology still in normal sinus rhythm also followed by pulmonary. Patient seems stable to go to the regular floor when bed is available in the meantime continue IV steroids for today eventually switched to by mouth. 2 recommendations from the consultants. The CAT scan of the chest showed severe emphysematous changes of the long. Left upper lobe and left lower lobe infiltrate/atelectasis with left pleural effusion. Current Medications Sig/Kirill Start time Last Medication Dose Route Stop Time Status Admin Acetaminophen 650 MG Q6P PRN 12/17 2215 AC PO Albuterol Sulfate 3 ML EVERY 4 HRS/AWAKE .. 12/20 1216 AC INH Albuterol Sulfate 3 ML EVERY 4 HRS/AWAKE 12/18 1200 DC 12/20 INH 0014 Apixaban 2.5 MG BID 12/17 2199 AC 12/20 PO 1109 Benzonatate 100 MG TID PRN 12/19 0900 AC 12/20 PO 1110 Budesonide/ 2 PUF BID 12/17 2199 AC 12/20 Formoterol Fumarate INH 1112 Ceftazidime 1,000 MG Q12 12/19 1000 AC 12/20 IV 1109 Diltiazem HCl 90 MG DAILY 12/17 193 AC 12/20 PO 1109 Dronedarone 400 MG BID 12/17 2199 AC 12/20 PO 1109 Guaifenesin 600 MG Q12 12/18 1144 AC 12/20 PO 1108 Melatonin 5 MG AT BEDTIME 12/17 2199 AC 12/18 PO 2233 Methylprednisolone 40 MG Q12 12/19 1000 AC 12/20 IV 12/21 0000 1110 Prednisone 40 MG DAILY 12/21 1000 AC PO Sodium Chloride 2 SPRAY Q4P PRN 12/19 1929 AC 12/19 MERLE 2219 Tiotropium [place] 1 PUF DAILY 12/17 193 AC 12/20 INH 1111 Laboratory Tests 12/20/16 0400: Anion Gap 9, Estimated GFR > 60, BUN/Creatinine Ratio 26.7 H, CBC w Diff NO MAN DIFF REQ, RBC 4.15 L, MCV 86.4, MCH 28.0, RDW 16.5 H, MPV 7.1 L, Gran % 95.4 H, Lymphocytes % 1.2 L, Monocytes % 3.4, Eosinophils % 0, Basophils % 0 L, Absolute Granulocytes 8.8 H, Absolute Lymphocytes 0.1 L, Absolute Monocytes 0.3, Absolute Eosinophils 0, Absolute Basophils 0, PUBS MCHC 32.5 L
[2016-12-20 23:00] VITALS: BP 128/66
[2016-12-21 05:27] LABS: ABSOLUTE BASOPHIL COUNT 0 /CUMM (0.0-0.2); ABSOLUTE EOSINOPHIL COUNT 0 /CUMM (0.0-0.7); ABSOLUTE GRANULOCYTE CT 6.5 /CUMM (1.4-6.5); ABSOLUTE LYMPH COUNT 0.1 /CUMM (1.2-3.4); ABSOLUTE MONOCYTE COUNT 0.3 /CUMM (0.10-0.60); BASOPHIL % 0 % (0.0-2.0); EOSINOPHIL % 0.1 % (0-5); GRANULOCYTE % 94.1 % (42.2-75.2); HEMATOCRIT 36.8 % (37-47); MEAN CORPUSCULAR HGB 28.2 PG (27.0-31.0); MEAN CORPUSCULAR HGB CONC 32.8 G/DL (33.0-37.0); MEAN PLATELET VOLUME 7.3 FL (7.4-10.4); PLATELET COUNT 298 /CUMM (130-400); RBC DISTRIBUTION WIDTH 16.4 % (11.5-14.5); RED BLOOD CELL CT 4.28 /CUMM (4.20-5.40); WHITE BLOOD CELL COUNT 6.9 /CUMM (4.8-10.8)
--- NOTE | 2016-12-21 06:48 | PN- Housestaff ---
Subjective Follow-up For: Sepsis CAP Abdominal pain/diarrhea Complaints: no complaints Tele-Events Since Last Visit: Off telemetry, a general medicine hold. Subjective: Patient seen and examined at bedside this AM. She reports her respiratory status is improved and she is feeling somewhat better. She is happy with the addition of saline nasal spray as this is helping to open up secretions. Review of Systems Constitutional: Denies: chills, fever. EENTM: Denies: visual changes, hearing changes. Cardiovascular: Denies: chest pain, palpitations. Respiratory: Reports: cough, sputum production. Denies: short of breath. Gastrointestinal: Denies: abdominal pain, nausea, vomiting. Genitourinary: Denies: dysuria, hematuria. Musculoskeletal: Denies: back pain. Skin: Denies: rash. Neurological/Psychological: Denies: confusion, headache. Hematologic/Endocrine: Denies: bruising, bleeding. Immunologic/Allergic: Denies: splenectomy. Objective Last 24 Hrs of Vital Signs/I&O Vital Signs Date Time Temp Pulse Resp B/P B/P Pulse O2 O2 Flow FiO2 Mean Ox Delivery Rate 12/21 0000 Nasal 3.0L Cannula 12/20 2300 98.0 76 20 128/66 96 Nasal 3.0L Cannula 12/20 2154 75 112/62 12/20 1600 98.0 80 20 108/60 96 Nasal 2.0L Cannula 12/20 1600 95 Nasal 3.0L Cannula 12/20 1109 78 102/78 12/20 1109 78 102/60 12/20 0904 97 Nasal 3.0L Cannula Intake & Output 12/21 1600 12/21 0800 12/21 0000 Intake Total 400 600 Output Total 400 Balance 400 200 Intake, Oral 400 600 Output, Urine 400 Physical Exam General Appearance: Alert, Oriented X3, Cooperative, No Acute Distress Skin: No Rashes, No Significant Lesion Skin Temp/Moisture Exam: Warm/Dry HEENT: Atraumatic, PERRLA, EOMI, Mucous Membr. moist/pink Neck: Supple, No JVD Lymphatic: Cervical nl Cardiovascular: Regular Rate, Normal S1, Normal S2 Lungs: Decreased air movement bilateral lung field but no added sounds/rhonchi/ wheezing Abdomen: Normal Bowel Sounds, Soft, No Tenderness Neurological: Normal Speech, Normal Tone Extremities: No Clubbing, No Cyanosis, No Edema Vascular: Pulses Symmetrical Current Medications: Current Medications Sig/Kirill Start time Last Medication Dose Route Stop Time Status Admin Acetaminophen 650 MG Q6P PRN 12/17 221 AC PO Albuterol Sulfate 3 ML EVERY 4 HRS/AWAKE .. 12/20 1216 AC INH Albuterol Sulfate 3 ML EVERY 4 HRS/AWAKE 12/18 1200 DC 12/20 INH 0014 Apixaban 2.5 MG BID 12/17 2199 AC 12/20 PO 2155 Benzonatate 100 MG TID PRN 12/19 0900 AC 12/20 PO 2201 Budesonide/ 2 PUF BID 12/17 220 AC 12/20 Formoterol Fumarate INH 2327 Ceftazidime 1,000 MG Q12 12/19 1000 AC 12/20 IV 2153 Diltiazem HCl 90 MG DAILY 12/17 193 AC 12/20 PO 1109 Dronedarone 400 MG BID 12/17 2199 AC 12/20 PO 2154 Guaifenesin 600 MG Q12 12/18 1144 AC 12/20 PO 2153 Melatonin 5 MG AT BEDTIME 12/17 2199 AC 12/18 PO 2233 Methylprednisolone 40 MG Q12 12/19 1000 DC 12/20 IV 12/21 0000 2153 Prednisone 40 MG DAILY 12/21 1000 AC PO Sodium Chloride 2 SPRAY Q4P PRN 12/19 193 AC 12/19 MERLE 2219 Tiotropium [place] 1 PUF DAILY 12/17 193 AC 12/20 INH 1111 Last 24 Hrs of Lab/Mannie Results Last 24 Hrs of Labs/Mics: Laboratory Tests 12/21/16 0455: Anion Gap 8, Estimated GFR > 60, BUN/Creatinine Ratio 34.3 H, CBC w Diff NO MAN DIFF REQ, RBC 4.28, MCV 86.0, MCH 28.2, RDW 16.4 H, MPV 7.3 L, Gran % 94.1 H, Lymphocytes % 1.8 L, Monocytes % 4.0, Eosinophils % 0.1, Basophils % 0 L, Absolute Granulocytes 6.5, Absolute Lymphocytes 0.1 L, Absolute Monocytes 0.3, Absolute Eosinophils 0, Absolute Basophils 0, PUBS MCHC 32.8 L Orders Radiology Findings: CXR: IMPRESSION: Emphysema. Increased small left pleural effusion with airspace opacity. Persistent left midlung linear opacity. Assessment/Plan Assessment: Ms. Aldana is a 76 year old female with PMH COPD on 2 L home O2, lung cancer s/p radiation currently in remission, atrial fibrillation diagnosed in Februrary on Eliquis and anxiety who presents to [facility] with chief complaint of crampy lower abdominal pain and diarrhea 2 days after initiating doxycycline therapy for presumed pneumonia. Janeen presented to the ED 3 days prior to admission with fever, increased wheezing, congestion and shortness of breath requiring increased use of her rescue inhalers. She was sent home on doxycycline and prednisone since as she refused to be admitted at that time. She returned on for evaluation of new-onset crampy abdominal pain and diarrhea. Vital signs in the ED: T 103.9, HR 128, RR 25, BP 134/65 and O2 saturation 93% on 2 L NC. Labs were significant for: WBC 15.2, 92% granulocytes, 6 bands, H&H 14.4/44, Plt 297, Na 136, K 4.1, Cl 100, HCO3 25, BUN 13, cre 0.7, Gli 114, lactic acid 1, AST 89, ALT 87, troponin <0.01, amylase 33, lipase 15 and UA without infection. CXR showed diffuse emphysematous changes with dense BRIANA platelike atelectasis. Small left pleural effusion. CT abdomen/pelvis showed 4 mm nonobstructive left renal calculus. No evidence for bowel obstruction. Patient was admitted to the general medicine floor, was found to be tachycardic to the 140s and in mild respiratory distress. She was transferred to the ICU as a telemetry hold and the following is the current management: 1. Sepsis secondary to likely community-acquired PNA in the setting of COPD * On admission, patient febrile 103.9, tachycardia to 128, WBC 15.2 with bands and suspected source of infection PNA (CT abdomen showed airpsace disease with left pleural effusion) * F/U CDiff, LRC, BC x 2 (so far NGTD); urine negative for legionella and strep antigens * Continue IV ceftazidime as patient has grown pseudomonas in the past and is responding well * Trend CBC to monitor for leukocytosis * Total respiratory care evaluation/treatment * Pulmonary consult with Dr. Guevara appreciated * CT chest on 12/19/16 showed evere emphysema, BRIANA and LLL infiltrate/atelectasis with left pleural effusion * PO prednisone 40 mg daily starting today, taper * Continue symbicort 1 puff daily, mucinex, saline nasal spray * OOBTC again today, f/u repeat PT eval as patient will need STR vs home care 2. Abdominal pain and diarrhea, IMPROVED * ikely adverse drug reaction to doxycycline * Hold doxycycline * Patient has had no loose bowel movement, send stool for CDiff if there is a noted BM 3. Atrial fibrillation on Eliquis * No need for telemetry monitoring, stable for transfer to general medicine * Continue Eliquis 2.5 mg PO BID * Continue rate control with Diltiazem SR 90 mg PO daily * Dronedarone 400 mg PO BID * Cardio consult with Dr. Dimitrios MD appreciated FULL CODE DVTP: Eliquis and ALPS Regular diet Mild pain pathway Problem List: 1. Abdominal pain 2. Adverse drug reaction 3. Pneumonia 4. Atrial fibrillation 5. History of lung cancer in adulthood 6. COPD (chronic obstructive pulmonary disease) Pain Ratin Pain Location: n/a Pain Goal: Remain pain free Pain Plan: Mild pain pathway Tomorrow's Labs & Rationales: CBC (CAP) BEP (hyponatremia) CBC (CAP) BEP (hyponatremia)
--- NOTE | 2016-12-21 07:19 | PN- Pulmonary ---
Subjective HPI/Critical Care Issues: Patient continues to have persistent cough but shortness of breath appears improved she is able to ambulate to the bathroom. Chest x-ray continues to show left-sided infiltrate and effusion. Remains afebrile with normal white count. Objective Current Medications: Current Medications Sig/Kirill Start time Last Medication Dose Route Stop Time Status Admin Acetaminophen 650 MG Q6P PRN 12/17 2214 AC PO Albuterol Sulfate 3 ML EVERY 4 HRS/AWAKE .. 12/20 1216 AC INH Albuterol Sulfate 3 ML EVERY 4 HRS/AWAKE 12/18 1200 DC 12/20 INH 0014 Apixaban 2.5 MG BID 12/17 2199 AC 12/20 PO 2155 Benzonatate 100 MG TID PRN 12/19 0900 AC 12/20 PO 2201 Budesonide/ 2 PUF BID 12/17 2199 AC 12/20 Formoterol Fumarate INH 2327 Ceftazidime 1,000 MG Q12 12/19 1000 AC 12/20 IV 2153 Diltiazem HCl 90 MG DAILY 12/17 193 AC 12/20 PO 1109 Dronedarone 400 MG BID 12/17 220 AC 12/20 PO 2154 Guaifenesin 600 MG Q12 12/18 1144 AC 12/20 PO 2153 Melatonin 5 MG AT BEDTIME 12/17 2199 AC 12/18 PO 2233 Methylprednisolone 40 MG Q12 12/19 1000 DC 12/20 IV 12/21 0000 2153 Prednisone 40 MG DAILY 12/21 1000 AC PO Sodium Chloride 2 SPRAY Q4P PRN 12/19 193 AC 12/19 MERLE 2219 Tiotropium [place] 1 PUF DAILY 12/17 193 AC 12/20 INH 1111 Vital Signs & I&O Last 24 Hrs of Vitals and I&O: Vital Signs Date Time Temp Pulse Resp B/P B/P Pulse O2 O2 Flow FiO2 Mean Ox Delivery Rate 12/21 0000 Nasal 3.0L Cannula 12/20 2300 98.0 76 20 128/66 96 Nasal 3.0L Cannula 12/20 2154 75 112/62 12/20 1600 98.0 80 20 108/60 96 Nasal 2.0L Cannula 12/20 1600 95 Nasal 3.0L Cannula 12/20 1109 78 102/78 12/20 1109 78 102/60 12/20 0904 97 Nasal 3.0L Cannula 12/20 0800 95 Nasal 3.0L Cannula 12/20 0800 96.1 78 24 120/70 95 Nasal 3.0L Cannula Intake & Output 12/21 0800 12/21 0000 12/20 1600 Intake Total 400 600 600 Output Total 400 300 Balance 400 200 300 Intake, Oral 400 600 600 Number 0 Bowel Movements Output, Urine 400 300 Action saturation 3 L 96% exam for chest shows diminished breath sounds are no wheezes cardiac exam shows regular S1 and S2 without murmurs Impression/Plan Impression/Plan Impression/Plan: 76-year-old with severe oxygen dependent COPD chronic hypoxic respiratory failure admitted with increasing shortness of breath and radiographic changes suspicious for left-sided pneumonia. 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 Overall status appears improved she remains in normal sinus rhythm. Complete course of antibiotics. Ambulate to determine her ability to return home. If pleural effusion fails to resolve diagnostic thoracentesis will be performed which can be deferred to outpatient setting in view of her history of lung cancer Recommendations: Follow-up sputum C&S adjust antibiotics accordingly Taper FiO2 with improved saturations. Cardiology about discontinuing telemetry with mandaeism of normal sinus rhythm. Would hope to switch to oral prednisone tomorrow. Increase activity and ambulation to determine suitability for home discharge.
[2016-12-21 08:00] VITALS: BP 146/70
--- NOTE | 2016-12-21 12:21 | PN- Att Addend ---
Attending Addendum Attending Brief Note Patient still some shortness of breath had improved from admission. Oxygen still on patient seems to be normal sinus rhythm to the telemetry was discontinued. Since vital signs are stable. No major changes on physical was able to walk to the bathroom at her oxygen and a walker. Appreciate Dr. Richardson inputs and recommendations. Will recheck the sputum just antibiotics accordingly. Soon switched to by mouth steroids. Current Medications Sig/Kirill Start time Last Medication Dose Route Stop Time Status Admin Acetaminophen 650 MG Q6P PRN 12/17 221 AC PO Albuterol Sulfate 3 ML EVERY 4 HRS/AWAKE .. 12/20 1216 AC INH Apixaban 2.5 MG BID 12/17 2199 AC 12/21 PO 1111 Benzonatate 100 MG TID PRN 12/19 0900 AC 12/20 PO 2201 Budesonide/ 2 PUF BID 12/17 2199 AC 12/21 Formoterol Fumarate INH 1112 Ceftazidime 1,000 MG Q12 12/19 1000 AC 12/21 IV 1111 Diltiazem HCl 90 MG DAILY 12/17 193 AC 12/21 PO 1111 Dronedarone 400 MG BID 12/17 2199 AC 12/21 PO 1112 Guaifenesin 600 MG Q12 12/18 1144 AC 12/21 PO 1112 Melatonin 5 MG AT BEDTIME 12/17 2199 AC 12/18 PO 2233 Methylprednisolone 40 MG Q12 12/19 1000 DC 12/20 IV 12/21 0000 2153 Prednisone 40 MG DAILY 12/21 1000 AC 12/21 PO 1112 Sodium Chloride 2 SPRAY Q4P PRN 12/19 1929 AC 12/19 MERLE 2219 Tiotropium [place] 1 PUF DAILY 12/17 193 AC 12/20 INH 1111 Laboratory Tests 12/21/16 0455: Anion Gap 8, Estimated GFR > 60, BUN/Creatinine Ratio 34.3 H, CBC w Diff NO MAN DIFF REQ, RBC 4.28, MCV 86.0, MCH 28.2, RDW 16.4 H, MPV 7.3 L, Gran % 94.1 H, Lymphocytes % 1.8 L, Monocytes % 4.0, Eosinophils % 0.1, Basophils % 0 L, Absolute Granulocytes 6.5, Absolute Lymphocytes 0.1 L, Absolute Monocytes 0.3, Absolute Eosinophils 0, Absolute Basophils 0, PUBS MCHC 32.8 L Vital Signs Date Time Temp Pulse Resp B/P B/P Pulse O2 O2 Flow FiO2 Mean Ox Delivery Rate 12/21 1111 68 134/70 12/22 799 Nasal 3.0L Cannula 12/22 799 98.1 80 22 146/70 94 Nasal 3.0L Cannula
[2016-12-21 16:00] VITALS: BP 126/62
[2016-12-21 23:00] VITALS: BP 138/70
[2016-12-22 05:08] LABS: ABSOLUTE BASOPHIL COUNT 0 /CUMM (0.0-0.2); ABSOLUTE EOSINOPHIL COUNT 0 /CUMM (0.0-0.7); ABSOLUTE GRANULOCYTE CT 5.8 /CUMM (1.4-6.5); ABSOLUTE LYMPH COUNT 0.2 /CUMM (1.2-3.4); ABSOLUTE MONOCYTE COUNT 0.6 /CUMM (0.10-0.60); BASOPHIL % 0 % (0.0-2.0); EOSINOPHIL % 0.1 % (0-5); GRANULOCYTE % 88.2 % (42.2-75.2); HEMATOCRIT 34.6 % (37-47); MEAN CORPUSCULAR HGB 28.2 PG (27.0-31.0); MEAN CORPUSCULAR VOLUME 85.6 FL (81.0-99.0); MEAN PLATELET VOLUME 6.6 FL (7.4-10.4); PLATELET COUNT 278 /CUMM (130-400); RBC DISTRIBUTION WIDTH 15.9 % (11.5-14.5); RED BLOOD CELL CT 4.05 /CUMM (4.20-5.40); WHITE BLOOD CELL COUNT 6.6 /CUMM (4.8-10.8)
--- NOTE | 2016-12-22 06:55 | PN- Housestaff ---
Subjective Follow-up For: Pneumonia Atrial fibrillation Tele-Events Since Last Visit: Off tele. Subjective: Patient seen and examined at bedside this AM. She was sitting up comfortably in bed in no acute distress and amenable to discharge home today. She denies worsening shortness of breath, chills, fever or weakness. Review of Systems Constitutional: Denies: fever, malaise, weakness. EENTM: Denies: visual changes, hearing changes. Cardiovascular: Denies: chest pain, palpitations. Respiratory: Reports: cough. Denies: short of breath. Gastrointestinal: Denies: abdominal pain, nausea, bloody stool. Genitourinary: Denies: dysuria. Musculoskeletal: Denies: back pain. Skin: Denies: rash. Neurological/Psychological: Denies: confusion, headache. Hematologic/Endocrine: Denies: bruising, bleeding. Immunologic/Allergic: Denies: splenectomy. Objective Last 24 Hrs of Vital Signs/I&O Vital Signs Date Time Temp Pulse Resp B/P B/P Pulse O2 O2 Flow FiO2 Mean Ox Delivery Rate 12/22 0914 80 130/80 12/22 0913 98.4 80 130/80 12/22 0000 Nasal 3.0L Cannula 12/21 2300 97.4 70 18 138/70 97 Nasal 3.0L Cannula 12/21 2118 78 128/68 12/21 2044 96 Nasal 3.0L Cannula 12/21 1600 94 Nasal 3.0L Cannula 12/21 1600 98.7 84 20 126/62 94 Nasal 3.0L Cannula 12/21 1431 Nasal 3.0L Cannula 12/21 1111 68 134/70 Intake & Output 12/22 1600 12/22 0800 12/22 0000 Intake Total 360 500 Output Total Balance 360 500 Intake, Oral 360 500 Physical Exam General Appearance: Alert, Oriented X3, Cooperative, No Acute Distress Skin: No Significant Lesion Skin Temp/Moisture Exam: Warm/Dry HEENT: Atraumatic, PERRLA, EOMI, Mucous Membr. moist/pink Neck: Supple, No JVD Lymphatic: Cervical nl Cardiovascular: Regular Rate, Normal S1, Normal S2 Lungs: Normal Air Movement, Improved aeration without wheeze Abdomen: Normal Bowel Sounds, Soft, No Tenderness Neurological: Normal Speech, Normal Tone Extremities: No Clubbing, No Cyanosis, No Edema Vascular: Pulses Symmetrical Current Medications: Current Medications Sig/Kirill Start time Last Medication Dose Route Stop Time Status Admin Acetaminophen 650 MG Q6P PRN 12/17 2214 AC PO Albuterol Sulfate 3 ML EVERY 4 HRS/AWAKE .. 12/20 1216 AC INH Apixaban 2.5 MG BID 12/17 2199 AC 12/22 PO 0913 Benzonatate 100 MG TID PRN 12/19 0900 AC 12/21 PO 1228 Budesonide/ 2 PUF BID 12/17 2199 AC 12/22 Formoterol Fumarate INH 0905 Ceftazidime 1,000 MG Q12 12/19 1000 AC 12/22 IV 0918 Diltiazem HCl 90 MG DAILY 12/17 193 AC 12/22 PO 0913 Dronedarone 400 MG BID 12/17 2199 AC 12/22 PO 0914 Guaifenesin 600 MG Q12 12/18 1144 AC 12/22 PO 0913 Melatonin 5 MG AT BEDTIME 12/17 2199 AC 12/18 PO 2233 Prednisone 40 MG DAILY 12/21 1000 AC 12/22 PO 0913 Sodium Chloride 2 SPRAY Q4P PRN 12/19 1929 AC 12/19 MERLE 2219 Tiotropium [place] 1 PUF DAILY 12/17 193 AC 12/22 INH 0914 Last 24 Hrs of Lab/Mannie Results Last 24 Hrs of Labs/Mics: Laboratory Tests 12/22/16 0415: Anion Gap 5, Estimated GFR > 60, BUN/Creatinine Ratio 31.7 H, CBC w Diff NO MAN DIFF REQ, RBC 4.05 L, MCV 85.6, MCH 28.2, RDW 15.9 H, MPV 6.6 L, Gran % 88.2 H, Lymphocytes % 2.9 L, Monocytes % 8.8, Eosinophils % 0.1, Basophils % 0 L, Absolute Granulocytes 5.8, Absolute Lymphocytes 0.2 L, Absolute Monocytes 0.6, Absolute Eosinophils 0, Absolute Basophils 0, PUBS MCHC 33.0 Assessment/Plan Assessment: Ms. Aldana is a 76 year old female with PMH COPD on 2 L home O2, lung cancer s/p radiation currently in remission, atrial fibrillation diagnosed in Februrary on Eliquis and anxiety who presents to [place] with chief complaint of crampy lower abdominal pain and diarrhea 2 days after initiating doxycycline therapy for presumed pneumoniaLalita Vernon presented to the ED 3 days prior to admission with fever, increased wheezing, congestion and shortness of breath requiring increased use of her rescue inhalers. She was sent home on doxycycline and prednisone since as she refused to be admitted at that time. She returned on for evaluation of new-onset crampy abdominal pain and diarrhea. Vital signs in the ED: T 103.9, HR 128, RR 25, BP 134/65 and O2 saturation 93% on 2 L NC. Labs were significant for: WBC 15.2, 92% granulocytes, 6 bands, H&H 14.4/44, Plt 297, Na 136, K 4.1, Cl 100, HCO3 25, BUN 13, cre 0.7, Gli 114, lactic acid 1, AST 89, ALT 87, troponin <0.01, amylase 33, lipase 15 and UA without infection. CXR showed diffuse emphysematous changes with dense BRIANA platelike atelectasis. Small left pleural effusion. CT abdomen/pelvis showed 4 mm nonobstructive left renal calculus. No evidence for bowel obstruction. Patient was admitted to the general medicine floor, was found to be tachycardic to the 140s and in mild respiratory distress. She was transferred to the ICU as a telemetry hold and the following is the current management: 1. Sepsis secondary to likely community-acquired PNA in the setting of COPD * On admission, patient febrile 103.9, tachycardia to 128, WBC 15.2 with bands and suspected source of infection PNA (CT abdomen showed airpsace disease with left pleural effusion) * F/U CDiff, LRC, BC x 2 (so far NGTD); urine negative for legionella and strep antigens * IV ceftazidime, switch to PO for discharge * Trend CBC to monitor for leukocytosis * Total respiratory care evaluation/treatment * Pulmonary consult with Dr. Guevara appreciated; f/u with Dr. Guevara 1 week after discharge for repeat CXR and assessment of left pleural effusion * CT chest on 12/19/16 showed evere emphysema, BRIANA and LLL infiltrate/atelectasis with left pleural effusion * PO prednisone taper today and continue on discharge * Continue symbicort 1 puff daily, mucinex, saline nasal spray * OOBTC again today, f/u repeat PT eval as patient will need STR vs home care 2. Abdominal pain and diarrhea, IMPROVED * Likely adverse drug reaction to doxycycline * Hold doxycycline * Patient has had no loose bowel movement, send stool for CDiff if there is a noted BM 3. Atrial fibrillation on Eliquis * No need for telemetry monitoring, stable for transfer to general medicine * Continue Eliquis 2.5 mg PO BID * Continue rate control with Diltiazem SR 90 mg PO daily * Dronedarone 400 mg PO BID * Cardio consult with Dr. Dimitrios MD appreciated, follow up after discharge FULL CODE DVTP: Eliquis and ALPS Regular diet Mild pain pathway Problem List: 1. Pneumonia 2. Adverse drug reaction 3. Abdominal pain 4. Atrial fibrillation 5. History of lung cancer in adulthood Pain Ratin Pain Location: n/a Pain Goal: Remain pain free Pain Plan: Per pain pathway Tomorrow's Labs & Rationales: Discharge today
--- NOTE | 2016-12-22 07:44 | PN- Pulmonary ---
Subjective HPI/Critical Care Issues: Patient feels improved and comfortable with discharge home Objective Current Medications: Current Medications Sig/Kirill Start time Last Medication Dose Route Stop Time Status Admin Acetaminophen 650 MG Q6P PRN 12/17 2214 AC PO Albuterol Sulfate 3 ML EVERY 4 HRS/AWAKE .. 12/20 1216 AC INH Apixaban 2.5 MG BID 12/17 2199 AC 12/21 PO 2117 Benzonatate 100 MG TID PRN 12/19 0900 AC 12/21 PO 1228 Budesonide/ 2 PUF BID 12/17 2199 AC 12/21 Formoterol Fumarate INH 2119 Ceftazidime 1,000 MG Q12 12/19 1000 AC 12/21 IV 2118 Diltiazem HCl 90 MG DAILY 12/17 193 AC 12/21 PO 1111 Dronedarone 400 MG BID 12/17 2199 AC 12/21 PO 2118 Guaifenesin 600 MG Q12 12/18 1144 AC 12/21 PO 2117 Melatonin 5 MG AT BEDTIME 12/17 2199 AC 12/18 PO 2233 Prednisone 40 MG DAILY 12/21 1000 AC 12/21 PO 1112 Sodium Chloride 2 SPRAY Q4P PRN 12/19 193 AC 12/19 MERLE 2219 Tiotropium [place] 1 PUF DAILY 12/18 1931 AC 12/21 INH 1227 Vital Signs & I&O Last 24 Hrs of Vitals and I&O: Vital Signs Date Time Temp Pulse Resp B/P B/P Pulse O2 O2 Flow FiO2 Mean Ox Delivery Rate 12/22 0000 Nasal 3.0L Cannula 12/21 2299 97.4 70 18 138/70 97 Nasal 3.0L Cannula 12/218 78 128/68 12/21 2044 96 Nasal 3.0L Cannula 12/21 1600 94 Nasal 3.0L Cannula 12/21 1600 98.7 84 20 126/62 94 Nasal 3.0L Cannula 12/21 1431 Nasal 3.0L Cannula 12/21 1111 68 134/70 12/21 0800 Nasal 3.0L Cannula 12/21 0800 98.1 80 22 146/70 94 Nasal 3.0L Cannula Intake & Output 12/22 0800 12/22 0000 12/21 1600 Intake Total 360 500 710 Output Total Balance 360 500 710 Intake, IV 30 Intake, Oral 360 500 680 Oxygen saturation 3 L 97% exam for chest shows decreased breath sounds are no wheezes cardiac exam shows regular S1 and S2 without murmurs Impression/Plan Impression/Plan Impression/Plan: 76-year-old with severe oxygen dependent COPD chronic hypoxic respiratory failure admitted with increasing shortness of breath and radiographic changes suspicious for left-sided pneumonia. 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 Overall status appears improved she remains in normal sinus rhythm. Complete course of antibiotics. Ambulate to determine her ability to return home. If pleural effusion fails to resolve diagnostic thoracentesis will be performed which can be deferred to outpatient setting in view of her history of lung cancer. Patient appears stable for discharge home today Recommendations: Complete course of antibiotics follow-up in the office next week for follow-up chest x-ray and assessment of left pleural effusion FiO2 can be tapered with improved saturations slow prednisone taper.
[2016-12-22 08:00] VITALS: BP 130/80
[2016-12-22] MEDS ORDERED: PREDNISONE10 M2 PO (08:49)
--- NOTE | 2016-12-22 08:57 | Patient Discharge Instructions ---
Discharge Instructions General Discharge Information You were seen/treated for: Pneumonia Atrial fibrillation Special Instructions: Please take all medications as directed. Please follow up with your PCP within 7 days of discharge. Please follow up with Dr. Ismael MD within 7 days of discharge. He will likely repeat CXR and assess left pleural effusion. Please follow up with your nitroglycerin separator operator Dr. Dimitrios MD at your scheduled appointment. Diet Recommended Diet: Heart Healthy Activity Activity Self Limited: Yes Acute Coronary Syndrome Inclusion Criteria At DC or during hospital stay patient has or had the following: ACS DIAGNOSIS No Discharge Core Measures Meds if any: Prescribed or Continued at Discharge Meds if any: NOT Prescribed or Continued at Discharge Congestive Heart Failure Inclusion Criteria At DC or during hospital stay patient has or had the following: CHF DIAGNOSIS No Discharge Core Measures Meds if any: Prescribed or Continued at Discharge Meds if any: NOT Prescribed or Continued at Discharge Cerebrovascular accident Inclusion Criteria At DC or during hospital stay patient has or had the following: CVA/TIA Diagnosis No Discharge Core Measures Meds if any: Prescribed or Continued at Discharge Meds if any: NOT Prescribed or Continued at Discharge Venous thromboembolism Inclusion Criteria VTE Diagnosis No VTE Type NONE VTE Confirmed by (Test) NONE Discharge Core Measures - Per Current guidelines, there needs to be overlap - treatment for the first 5 days of Warfarin therapy. - If discharged on Warfarin prior to 5 days of - overlap therapy, the patient will need to be - assessed for post discharge needs including - *Post discharge parental anticoagulation - *Warfarin and/or parental anticoagulation education - *Follow up date to check INR post discharge At least 5 days overlap therapy as Inpatient No Meds if any: Prescribed or Continued at Discharge Note: Overlap Therapy is Warfarin and Anticoagulant Meds if any: NOT Prescribed or Continued at Discharge
[2016-12-22 09:14] VITALS: BP 130/80
--- NOTE | 2016-12-22 12:28 | Event Note ---
Event Note Event Note: Discussed patient with attending physician Dr. Dakota MD. He would like to discharge the patient on a prednisone taper without antibiotic coverage as she has completed 5 days in the hospital.
--- NOTE | 2016-12-22 18:56 | Discharge Summary ---
Visit Information Visit Dates Admission Date: 12/17/16 Discharge Date: 12/22/16 Hospital Course Course Attending Physician: CHI LEY MD Primary Care Physician: CHI LEY MD Consulting Request: Consulting Specialty: Pulmonary Disease (and cardiology) Consulting Physician: Dr. 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 Had a recent exacerbation to the emergency room was given medications one of them included doxycycline plus to prednisone and home she felt jittery and after she started having abdominal cramps diarrhea she came back to the ER with a temperature and also has pneumonia on chest x-ray is admitted with exacerbation of COPD and pneumonia is that is post abdominal cramps and diarrhea the doxycycline was discontinued antibiotics were reassessed patient was seen by pulmonary patient slowly improved she also was seen by cardiology because she might have had this short episode of atrial fibrillation before admission she was seen she was in normal sinus rhythm patient slowly improved and was ready for discharge on December 22 Complications: None Allergies: Coded Allergies: levofloxacin (Mild, LEGS FELT TIGHT 12/17/16) amoxicillin (ANAPHYLAXIS 12/17/16) clarithromycin (UNKNOWN - PT DOESNT REMEMBER WAS TOLD BY MD NOT TO TAKE 12/17/16 ) Significant Procedures: SERVICE DATE: 12/17/16-719 EXAM TYPE: RAD - XRY-CHEST XRAY, PA AND LATERAL EXAMINATION: XR CHEST CLINICAL INFORMATION: Shortness of breath. COMPARISON: Prior chest radiographs, most recently 12/14/2016; CTA thorax dated 08/31/2016. TECHNIQUE: 2 views of the chest were obtained. FINDINGS: The heart, great vessels, pulmonary vasculature mediastinum are stable. There is severe emphysematous changes with marked biapical lucency and hyperinflation. No definite pneumothorax is seen. There is dense plate-like atelectasis in the left upper lobe. There is a small left pleural effusion. No acute osseous abnormality seen. IMPRESSION: There are diffuse emphysematous changes. There is interim appearan SERVICE DATE: 12/17/16-0236 EXAM TYPE: CAT - CT ABD & PELVIS W IV CONTRAST EXAMINATION: CT ABDOMEN AND PELVIS WITH CONTRAST CLINICAL INFORMATION: Abdominal pain. Nausea, vomiting. COMPARISON: Same day chest radiographs. TECHNIQUE: Contiguous axial thin section helical images of the abdomen and pelvis were performed following the administration of 94 mL of intravenous Optiray 320. The data set was reformatted in the coronal and sagittal planes and reviewed on an independent workstation. DLP: 249 mGy-cm. FINDINGS: Within the visualized lung bases, there is emphysema. There is a [id number] left pleural effusion with adjacent airspace disease.. The visualized portions of the heart are unremarkable. The liver is of normal size and attenuation without focal lesions nor intrahepatic biliary ductal dilation. A normal gallbladder is identified. There is no wall thickening or discernible pericholecystic fluid. The spleen, pancreas, adrenal glands are unremarkable. Both kidneys are of normal size and attenuation without hydronephrosis. There is a 4 mm nonobstructive calculus within the interpole region of the left kidney. Following the administration of IV contrast, prompt symmetric nephrograms are displayed. There is no abdominal free fluid. There is neither mesenteric nor retroperitoneal lymphadenopathy. Normal unopacified loops of small and large bowel are identified. There is no pelvic free fluid. The the urinary bladder is distended. There is no wall thickening. There is neither pelvic nor inguinal lymphadenopathy. Bone windows: Neither sclerotic nor lytic bone lesions are identified. There is disc height loss at L2/L3. IMPRESSION: Distended urinary bladder. No pelvic free fluid. [id number] left pleural effusion with adjacent airspace disease. Emphysema. 4 mm nonobstructive left renal calculus. No evidence for bowel obstruction. left upper lobe platelike atelectasis. Recommend short term follow-up chest radiographs to ensure clearance and exclude the possibility of underlying obstructive process. A small left pleural effusion is seen. SERVICE DATE: 12/19/16- EXAM TYPE: CAT - CT CHEST WO IV CONTRAST EXAMINATION: CT CHEST WITHOUT CONTRAST CLINICAL INFORMATION: Respiratory failure. COMPARISON: Chest x-ray 12/19/2016. CTA of chest 08/31/2016. TECHNIQUE: Multidetector volumetric CT imaging of the chest was done. Axial MIP volume rendering provided. Sagittal and coronal reformatted images were obtained. No oral or intravenous contrast. DLP: 223.18 mGy-cm. FINDINGS: LUNGS: Severe emphysematous lucency of lungs primarily effecting upper lobes. There is consolidation with air bronchograms and volume loss in the left upper lobe extending from the jocelyn to the posterior left upper lobe and anterior left upper lobe along the major fissure. There is also consolidation/atelectasis with air bronchograms at the dependent left lower lobe. Left hilar difficult to assess given the presence of the lung consolidation and lack of IV contrast. The right lung is clear. MEDIASTINUM: Scattered vascular wall calcifications of the aorta. No bulky lymphadenopathy. There is mild dilatation of the thoracic esophagus. No inflammatory changes or fluid collections of the mediastinum. PLEURA: Moderate volume left pleural effusion at left lung base. No right pleural effusion. No pneumothorax. AXILLA: No bulky lymphadenopathy. UPPER ABDOMEN: Unremarkable. OSSEOUS STRUCTURES: Multilevel degenerative change of the spine with disc height narrowing and endplate spurs. Mild sclerotic change with mild compression deformity of the T7 vertebrae unchanged since prior CAT scan. IMPRESSION: 1. Severe emphysematous changes of the lung. 2. Left upper lobe and left lower lobe infiltrate/atelectasis with left pleural effusion. SERVICE DATE: 12/19/16 EXAM TYPE: RAD - XRY-PORTABLE CHEST XRAY EXAMINATION: XR PORTABLE CHEST CLINICAL INFORMATION: Decreased breath sounds in the right lower lobe. Increased work of breathing with shortness of breath. COMPARISON: 12/17/2016 TECHNIQUE: Portable frontal view of the chest was obtained. FINDINGS: Cardiac leads overlie the chest. Severe emphysema. Similar linear opacity in the left midlung. Small left pleural effusion is increased with basilar opacity. The right base is unchanged. No focal consolidation. No pneumothorax. The cardiomediastinal silhouette is unchanged. IMPRESSION: Emphysema. Increased small left pleural effusion with airspace opacity. Persistent left midlung linear opacity. Pertinent Lab Results: Laboratory Tests 12/17/16 1900: Lactic Acid Pending 12/17/16 1512: Lactic Acid 1.1 12/17/16 1512: Anion Gap 11, Estimated GFR > 60, BUN/Creatinine Ratio 18.6, Glucose 114 H, Calcium 8.9, Total Bilirubin 1.0, AST 89 H, ALT 87 H, Alkaline Phosphatase 109 , Troponin I < 0.01, Total Protein 6.6, Albumin 3.8, Globulin 2.8, Albumin/ Globulin Ratio 1.4, Amylase 33, Lipase 15 L, CBC w Diff MAN DIFF ORDERED, RBC 5.10, MCV 86.4, MCH 28.3, RDW 16.4 H, MPV 7.4, Gran % 92.0 H, Lymphocytes % 1.7 L, Monocytes % 6.2, Eosinophils % 0, Basophils % 0.1, Absolute Granulocytes 13.9 H, Segmented Neutrophils 81 H, Band Neutrophils 6 H, Absolute Lymphocytes 0.3 L, Lymphocytes 5 L, Monocytes 8, Absolute Monocytes 0.9 H, Absolute Eosinophils 0, Absolute Basophils 0, Platelet Estimate ADEQUATE, Normochromic RBCs VERIFIED, PUBS MCHC 32.7 L Microbiology 12/17 1806 URINE ROUT: Legionella Antigen - ORD 12/17 1806 URINE ROUT: Streptococcus pneumoniae Antigen (M - ORD 12/17 1806 URINE ROUT: Urine Culture - ORD 12/17 151 BLOOD: Blood Culture - RECD 12/17 151 BLOOD: Blood Culture - RECD 12/17 145 LOWER RESP: Respiratory Culture - ORD 12/17 145 LOWER RESP: Gram Stain - ORD 12/17 145 STOOL: Clostridium difficile Toxin A & B - ORD 12/17 145 STOOL: Stool Culture - ORD 12/19/16 0420: Anion Gap 7, Estimated GFR > 60, Glucose 152 H, Calcium 8.0 L, Phosphorus 2.9, Magnesium 2.2, Total Bilirubin 0.3, AST 17, ALT 54 H, Albumin 2.5 L, CBC w Diff MAN DIFF ORDERED, RBC 3.73 L, MCV 86.5, MCH 28.7, RDW 16.4 H, MPV 7.6, Gran % 95.7 H, Lymphocytes % 0.8 L, Monocytes % 3.5, Eosinophils % 0, Basophils % 0 L, Absolute Granulocytes 11.5 H, Absolute Lymphocytes 0.1 L, Absolute Monocytes 0.4, Absolute Eosinophils 0, Absolute Basophils 0, Platelet Estimate ADEQUATE, Hypochromic-Microcytic 1+, Anisocytosis 1+, Ovalocytes 1+, PUBS MCHC 33.1 12/18/16 0340: Anion Gap 8, Estimated GFR > 60, BUN/Creatinine Ratio 18.0, Total Bilirubin 0.5, Direct Bilirubin 0.3, AST 29, ALT 55 H, Alkaline Phosphatase 68, Total Protein 4.7 L, Albumin 2.5 L, CBC w Diff MAN DIFF ORDERED, RBC 4.11 L, MCV 86.5, MCH 28.8, RDW 16.3 H, MPV 7.5, Gran % 96.3 H, Lymphocytes % 0.6 L, Monocytes % 3.1, Eosinophils % 0, Basophils % 0 L, Absolute Granulocytes 14.2 H, Segmented Neutrophils 93 H, Band Neutrophils 4, Absolute Lymphocytes 0.1 L, Monocytes 3, Absolute Monocytes 0.5, Absolute Eosinophils 0.0, Absolute Basophils 0.0, Nucleated RBCs 100 H, Platelet Estimate ADEQUATE, Polychromasia 1+, Poikilocytosis 1+, Basophilic Stippling SLIGHT, Ovalocytes 1+, Elliptocytes FEW, PUBS MCHC 33.3 Laboratory Tests 12/20/16 0400: Anion Gap 9, Estimated GFR > 60, BUN/Creatinine Ratio 26.7 H, CBC w Diff NO MAN DIFF REQ, RBC 4.15 L, MCV 86.4, MCH 28.0, RDW 16.5 H, MPV 7.1 L, Gran % 95.4 H, Lymphocytes % 1.2 L, Monocytes % 3.4, Eosinophils % 0, Basophils % 0 L, Absolute Granulocytes 8.8 H, Absolute Lymphocytes 0.1 L, Absolute Monocytes 0.3, Absolute Eosinophils 0, Absolute Basophils 0, PUBS MCHC 32.5 L 12/21/16 0455: Anion Gap 8, Estimated GFR > 60, BUN/Creatinine Ratio 34.3 H, CBC w Diff NO MAN DIFF REQ, RBC 4.28, MCV 86.0, MCH 28.2, RDW 16.4 H, MPV 7.3 L, Gran % 94.1 H, Lymphocytes % 1.8 L, Monocytes % 4.0, Eosinophils % 0.1, Basophils % 0 L, Absolute Granulocytes 6.5, Absolute Lymphocytes 0.1 L, Absolute Monocytes 0.3, Absolute Eosinophils 0, Absolute Basophils 0, PUBS MCHC 32.8 L Disposition Summary Disposition Principal Diagnosis: Exacerbation of COPD Pneumonia Abdominal pain diarrhea Additional Diagnosis: Atrial fibrillation COPD Lung Cancer Anxiety Discharge Disposition: home health services Discharge Instructions General Discharge Information Code Status: Full Code Patient's Diet: Healthy heart Patient's Activity: Self-limited Follow-Up Instructions/Appts: Follow-up with cardiology pulmonary and myself Medications at Discharge Discharge Medications: Stop taking the following medications: Doxycycline Hyclate (Doxycycline Hyclate) 100 MG CAPSULE ORAL TWICE DAILY Qty = 20 Prednisone (Prednisone) 10 MG TABLET ORAL As Directed Qty = 19 Continue taking these medications: Fluticasone/Salmeterol (Advair 250-50 Diskus) 1 EACH BLST.W.DEV 1 Puff Inhale through mouth TWICE DAILY Instructions: Reason to Stop at ADM: [facility] ORDERS Comments: Last Taken: 09/05/16 Time: 9 AM SYMIBICORT GIVEN SUBSTITUTION Tiotropium [place] (Spiriva) 18 MCG CAP.W.DEV 1 Capsule Inhale through mouth DAILY Instructions: Reason to Stop at ADM: [facility] ORDER Comments: Last Taken: 12/22/16 Time: 0900 Albuterol Sulfate (Albuterol Sulfate) 0.63 MG/3 ML VIAL.NEB 1 Vial Inhale Solution THREE TIMES DAILY Instructions: Reason to Stop at ADM:[facility] ORD[facility] Comments: Last Taken: 09/05/16 Time: 11 AM Albuterol Sulfate (Proair Respiclick) 90 MCG AER.POW.BA 2 PUFF Inhale through mouth EVERY 4-6 HOURS as needed for COPD Qty = 1 Instructions: Reason to Stop at ADM: [facility] ORD[facility] Comments: NOT GIVEN WHILE IN HOSPITAL Dronedarone HCl (Multaq) 400 MG TABLET 400 Milligram ORAL TWICE DAILY Qty = 60 Comments: Last Taken: 12/22/16 Time: 0900 Apixaban (Eliquis) 2.5 MG TABLET 1 Tablet ORAL TWICE DAILY Qty = 180 Comments: Last Taken: 02/21/17 Time: 0900 Diltiazem HCl (Diltiazem 12HR ER) 90 MG CAP.ER.12H 1 Capsule ORAL DAILY Comments: Last Taken: 02/21/17 Time: 0900 Sodium Chloride (Saline Nasal [place]) (Unknown Strength) SPRAY Unknown Dose Both sides of nose as needed for NASAL CONGESTION Linaclotide (Linzess) 145 MCG CAPSULE 1 Capsule ORAL as needed for GI Qty = 30 Start taking the following new medications: Prednisone (Prednisone) 10 MG TABLET 0 ORAL See Instructions Qty = 12 No Refills Instructions: 12/23/16-12/24/16 TAKE 3 TABS DAILY 12/25/16- TAKE 2 TABS DAILY 12/27/16-12/28/16 TAKE 1 TAB DAILY THEN STOP. Copies To: LÓPEZ CLIFFORD,EDIL Torres; MARRY CLIFFORD,EDIL Morgan; CHI LEY MD Attending MD Review Statement Documenting Attending: CHI LEY MD
--- NOTE | 2016-12-22 18:58 | PN- Att Addend ---
Attending Addendum Attending Brief Note Patient looking and feeling better today in no respiratory distress walked with a physical therapist and the walker and oxygen vital signs are stable has no fever no new changes on physical if needed patient was cleared by pulmonary to go home and will follow as an outpatient and it see discharge summary and C MR Current Medications Sig/Kirill Start time Last Medication Dose Route Stop Time Status Admin Acetaminophen 650 MG Q6P PRN 12/17 2214 DCD PO Albuterol Sulfate 3 ML EVERY 4 HRS/AWAKE .. 12/20 1216 DCD INH Apixaban 2.5 MG BID 12/17 2199 DCD 12/22 PO 0913 Benzonatate 100 MG TID PRN 12/19 0900 DCD 12/21 PO 1228 Budesonide/ 2 PUF BID 12/17 2199 DCD 12/22 Formoterol Fumarate INH 0905 Ceftazidime 1,000 MG Q12 12/19 1000 DCD 12/22 IV 0918 Diltiazem HCl 90 MG DAILY 12/17 1930 DCD 12/22 PO 0913 Dronedarone 400 MG BID 12/17 2199 DCD 12/22 PO 0914 Guaifenesin 600 MG Q12 12/18 1144 DCD 12/22 PO 0913 Melatonin 5 MG AT BEDTIME 12/17 2199 DCD 12/18 PO 2233 Prednisone 40 MG DAILY 12/21 1000 DCD 12/22 PO 0913 Sodium Chloride 2 SPRAY Q4P PRN 12/19 1929 DCD 12/19 MERLE 2219 Tiotropium [place] 1 PUF DAILY 12/18 1931 DCD 12/22 INH 0914 Laboratory Tests 12/22/16 0415: Anion Gap 5, Estimated GFR > 60, BUN/Creatinine Ratio 31.7 H, CBC w Diff NO MAN DIFF REQ, RBC 4.05 L, MCV 85.6, MCH 28.2, RDW 15.9 H, MPV 6.6 L, Gran % 88.2 H, Lymphocytes % 2.9 L, Monocytes % 8.8, Eosinophils % 0.1, Basophils % 0 L, Absolute Granulocytes 5.8, Absolute Lymphocytes 0.2 L, Absolute Monocytes 0.6, Absolute Eosinophils 0, Absolute Basophils 0, PUBS MCHC 33.0 Intake & Output 12/22 1600 Intake Total 480 Output Total 500 Balance -20 Intake, Oral 480 Number 2 Bowel Movements Output, Urine 500
== END 2016-12-22 17:30 | disposition home health service (06) | DRG 871 ==
LOC: ERH 14:44 → ERHI 17:46 → CRI 17:46 → ENRESERV 19:08 → ENTRNSPT 20:12 → 2NB 20:40 → CMPTRNSPT 20:58 → CRI 12-18 01:53
PROVIDERS: Internal Medicine; Physician Assistant; Student in an Organized Health Care Education/Training Program; ADMIT Internal Medicine
DX: A41.9 Sepsis, unspecified organism (principal); J18.9 Pneumonia, unspecified organism; J96.11 Chronic respiratory failure with hypoxia; R64 Cachexia; Z99.81 Dependence on supplemental oxygen; I48.2 Chronic atrial fibrillation; J44.0 Chronic obstructive pulmonary disease with (acute) lower respiratory infection; J44.1 Chronic obstructive pulmonary disease with (acute) exacerbation; Z68.1 Body mass index [BMI] 19.9 or less, adult; Z85.118 Personal history of other malignant neoplasm of bronchus and lung; Z79.01 Long term (current) use of anticoagulants; Z87.891 Personal history of nicotine dependence
CPT/HCPCS: 2NBP; CCU; 36415; 74177; 81001; 82436; 87040; 87045; 87070; 87086; 87449; 87450; 87804; 87804-59; 93005; 93010; 96374; 96375; 97110-GO; 97116-GO; 97161-GP; 97530-GO; J0456; J0696; J0713; J2405; J2920; J3490; J7040

== ENCOUNTER 2016-12-28 13:40 | Observation (INO) | payer OTHER ==
[~2016-12-28] VITALS: Ht 162.6 cm; Wt 44.9 kg
--- NOTE | 2016-12-28 13:45 | NUR ---
PT BIBA FROM HOME FOR C/O DIFF BREATHING. WORSE TODAY WITH WALKING. PT RECENTLY DISCHARGED FROM [facility] FROM [facility]. STATES WORSENING SOB WITH PRODUCTIVE COUGH, SOMETIMES BLOOD TINGED. PT WEARS O2 1.5 TO 2L AT BASELINE. PT RECEIVED IV SOLUMEDROL AND DUONEB EN ROUTE. RA SATS 88%, PT PLACED ON 3L NC, SATS UP TO 95%. CHANGED INTO GOWN, PLACED ON MONITOR, SINUS TACH. DR SINGH IN FOR EVAL.
--- NOTE | 2016-12-28 14:05 | ED DYSPNEA/ASTHMA COMPLAINT ---
History of Present Illness General Chief Complaint: Dyspnea (COPD, CHF, Other) Stated Complaint: BIBA, DIFF BREATHING Source: patient Exam Limitations: no limitations Vital Signs & Intake/Output Vital Signs & Intake/Output Vital Signs Date Time Temp Pulse Resp B/P B/P Pulse O2 O2 Flow FiO2 Mean Ox Delivery Rate 12/28 1948 97.7 100 16 96/57 93 Nasal 2.5L Cannula 12/28 1613 100 20 101/69 95 Nasal 2.0L Cannula 12/28 1542 92 Nasal 2.5L Cannula 12/28 1512 98.5 100 24 137/93 95 Nasal 3.0L Cannula 12/28 1506 95 Nasal 3.0L Cannula 12/28 1347 99.5 96 20 179/86 91 Nasal 2.0L Cannula Allergies Coded Allergies: levofloxacin (Mild, LEGS FELT TIGHT 12/17/16) amoxicillin (ANAPHYLAXIS 12/17/16) clarithromycin (UNKNOWN - PT DOESNT REMEMBER WAS TOLD BY MD NOT TO TAKE 12/17/16 ) doxycycline (GI UPSET 12/28/16) Reconcile Medications Albuterol Sulfate 0.63 MG/3 ML VIAL.NEB 1 Vial INH/AMOS TID COPD (Reported) Reason to Stop at ADM:[facility] ORDERS Albuterol Sulfate (Proair Respiclick) 90 MCG AER.POW.BA 2 PUFF INH Q4-6 PRN COPD Reason to Stop at ADM: [facility] NEB ORDERS Apixaban (Eliquis) 2.5 MG TABLET 1 TAB PO BID BLOOD THINNER (Reported) Diltiazem HCl (Diltiazem 12HR ER) 90 MG CAP.ER.12H 1 CAP PO DAILY HEART ( Reported) Dronedarone HCl (Multaq) 400 MG TABLET 400 MG PO BID Atrial fibrillation Fluticasone/Salmeterol (Advair 250-50 Diskus) 1 EACH BLST.W.DEV 1 PUF INH BID COPD (Reported) Reason to Stop at ADM: [facility] NEB ORDERS Furosemide 20 MG TABLET 0.5 TAB PO DAILY WATER PILL (Reported) Linaclotide (Linzess) 145 MCG CAPSULE 1 CAP PO PRN GI (Reported) Sodium Chloride (Saline Nasal [place]) (Unknown Strength) SPRAY (Unknown Dose) NASB PRN NASAL CONGESTION (Reported) Tiotropium Secor (Spiriva) 18 MCG CAP.W.DEV 1 CAP INH DAILY COPD (Reported) Reason to Stop at ADM: [facility] ORDER Triage Nurses Notes Reviewed? yes Onset: Abrupt Duration: hour(s):, changing over time, continues in ED, getting worse Severity: severe Activities at Onset: none Prior Episodes/Possible Cause: frequent episodes HPI: Patient presents for evaluation of severe difficulty breathing that began gradually yesterday. Shortness of breath has been constant severe and worse with exertion. Patient was recently admitted to the [facility] for shortness of breath but she is unsure of her specific diagnosis. She has experienced a little chest heaviness a loose sounding cough with a small amount of phlegm production and wheezing. She denies fever. She states she's noticed leg swelling over the past 2 days that she typically does not have. She is treated with Solu-Medrol and a DuoNeb prehospital. Past History Travel History Traveled to [place] past 21 day No Medical History Any Pertinent Medical History? see below for history Neurological: dizziness EENT: allergies, POST NASAL DRIP Cardiovascular: AFIB, PT ON ELIQUIS Respiratory: COPD, emphysema, pneumonia, 1.5 - 2L O2 DEPENDENT Gastrointestinal: NONE Hepatic: NONE Renal: NONE Musculoskeletal: osteoporosis Psychiatric: anxiety Endocrine: NONE Blood Disorders: NONE Cancer(s): LEFT LUNG S/P RADIATION SEPTEMBER 2015 [employer]/Reproductive: NONE History of MRSA: No History of VRE: No History of CDIFF: No Surgical History Surgical History: appendectomy, TONSILLECTOMY HYSTERECTOMY STAPH INFECTION IN COLLAR BONE CLEANED Psychosocial History Who do you live with Son Services at Home Nursing, Oxygen What is your primary language Austrian Tobacco Use: Quit >30 days ago ETOH Use: occasional use Illicit Drug Use: denies illicit drug use Family History Family History, If Any: FATHER (heart failure?). MOTHER FH: breast cancer Hx Contributory? No Review of Systems Review of Systems Constitutional: Reports: no symptoms. EENTM: Reports: no symptoms. Respiratory: Reports: see HPI. Cardiovascular: Reports: no symptoms. GI: Reports: no symptoms. Genitourinary: Reports: no symptoms. Musculoskeletal: Reports: no symptoms. Skin: Reports: no symptoms. Neurological/Psychological: Reports: no symptoms. Hematologic/Endocrine: Reports: no symptoms. Immunologic/Allergic: Reports: no symptoms. All Other Systems: Reviewed and Negative Physical Exam Physical Exam Respiratory: see below Comments: Gen.: Well-nourished, well-developed, no acute respiratory distress. Head: Normocephalic, atraumatic. Eyes: Normal inspection bilaterally Ears: Normal inspection bilaterally Nose: Normal inspection Throat/mouth : Moist mucosa Neck: Supple, full range of motion, no goiter Heart: Regular rate and rhythm, no murmurs rubs or gallops Lungs: Decreased air entry bilaterally with no wheezes rales or rhonchi Chest: Nontender Back: Normal range of motion Abdomen: Soft, nontender, nondistended, normal bowel sounds Extremities: Normal range of motion grossly, equal radial pulses, no cyanosis, 1 + pitting ankle edema bilaterally Neurologic: Cranial nerves grossly intact, speech is clear Skin: warm and dry Psychiatric: Calm, cooperative, no apparent delusions or hallucinations Core Measures ACS in differential dx? No Severe Sepsis Present: No Septic Shock Present: No Progress Differential Diagnosis: bronchitis, CHF, COPD, pneumonia Plan of Care: Orders Procedure Date/time Status Regular Diet 12/[address] in observation 12/28 2006 Active CASE MANAGEMENT CONSULT 12/28 1856 Active TROPONIN LEVEL 12/28 1404 Complete CBC WITHOUT DIFFERENTIAL 12/28 1404 Complete B-TYPE NATRIURETIC PEP (BNP) 12/28 1404 Complete BASIC METABOLIC PANEL 12/28 1404 Complete EKG 12/28 1341 Active Laboratory Tests 12/28/16 1419: Anion Gap 8, Estimated GFR > 60, BUN/Creatinine Ratio 26.7 H, Glucose 116 H, Calcium 8.8, Troponin I < 0.01, Snn-L-Esgdxjxhekm Pept 340 H, CBC w Diff MAN DIFF ORDERED, RBC 5.04, MCV 85.1, MCH 28.1, RDW 16.9 H, MPV 6.8 L, Gran % 91.7 H, Lymphocytes % 2.7 L, Monocytes % 5.5, Eosinophils % 0.1, Basophils % 0 L, Absolute Granulocytes 14.7 H, Absolute Lymphocytes 0.4 L, Absolute Monocytes 0.9 H, Absolute Eosinophils 0, Absolute Basophils 0, Platelet Estimate ADEQUATE , Normocytic RBCs VERIFIED, Normochromic RBCs VERIFIED, PUBS MCHC 33.0 Diagnostic Imaging: Discussed w/RAD: Radiology Read. CXR Impression: PATIENT: JANEEN JAUREGUI PRESENT AGE: 76 PATIENT ACCOUNT NO: [id number] : 41 LOCATION: [facility] ORDERING PHYSICIAN: BROWN SINGH MD SERVICE DATE: 12/28/161658 EXAM TYPE: RAD - XRY-PORTABLE CHEST XRAY EXAMINATION: XR PORTABLE CHEST CLINICAL INFORMATION: COPD, CHF. Shortness of breath COMPARISON: Chest x-ray dated 12/19/2016 TECHNIQUE: Portable frontal view of the chest was obtained. FINDINGS: Bullous emphysematous changes noted again in bilateral upper lobes. Streaky linear opacity left midlung with no significant interval change. Stable prominence of the pulmonary markings and hazy opacity noted in the right infrahilar region. Prominence of the bronchial markings bilateral lungs representing chronic change. Slight interval movement in the left-sided pleural effusion. IMPRESSION: Stable linear opacity left midlung. Improving left-sided pleural effusion. Stable hazy opacity and prominence of the pulmonary/bronchial markings notably in the right infrahilar region. Stable emphysematous changes with bullous emphysema bilateral apices. DICTATED BY: FERNANDO SAAB MD DATE/TIME DICTATED:12/28/161441 CAMP MANAGER:AMANDA DATE/TIME TRANSCRIBED:12/28/161441 CONFIDENTIAL, DO NOT COPY WITHOUT APPROPRIATE AUTHORIZATION. <Electronically signed in Other Vendor System> SIGNED BY: FERNANDO SAAB MD 12/28/16 1448 Initial ED EKG: sinus tachycardia with a ventricular rate of 106 Prior EKG: unchanged (aside from rate) Comments: 12/28/2016 3:35:39 PM I have updated Janeen on her test results. She is anxious about going home but she is also anxious about being hospitalized (she states she is a germ phobia). She is prone to anxiety but she's never felt this anxious before. I have ordered an albuterol tx and Ativan for her. 12/28/2016 6:20:06 PM although Janeen appeared more comfortable after the Ativan and nebulizer treatment (she even nodded off to sleep) upon awakening she expressed severe anxiety about returning home. She felt ultrasound would be very angry if she returned home under the circumstances. She was also nervous about being hospitalized, fearing the germ exposure. She also felt that a rehabilitation facility wouldn't be appropriate given her observations when her mother was in a rehabilitation facility. I have discussed her case with case management. She did drop her oxygen saturation to 89% while on 3 L nasal cannula when going to the bathroom here in the emergency department. She also looked visibly dyspneic. Departure Departure Disposition: STILL A PATIENT Condition: Stable Clinical Impression Primary Impression: COPD exacerbation Secondary Impressions: Exertional dyspnea Hyponatremia Hypoxia Leukocytosis Qualifiers: Leukocytosis type: unspecified Qualified Code: D72.829 - Elevated white blood cell count, unspecified Referrals: CHI LEY MD (PCP/Family) Departure Forms: Customer Survey General Discharge Information Observation Note Spoke With: CHI LEY MD Physician Advisor Notified: LÓPEZ CLIFFORD,ZEB Torres Place Patient In: Non-ED OBS Care Area Rationale for Observation: My rational for observation is as follows patient is suffering from an acute COPD exacerbation resistant to bronchodilators and IV steroids. She becomes dyspneic and dropped her oxygen saturation to 89% with even minimal exertion ( for example going to the bathroom). I do not feel she is a good candidate for outpatient management under the circumstances as the exertion of compliance with outpatient treatment could worsen her hypoxia leading to chest pain and acute coronary syndrome and respiratory failure. I feel she now requires serial nebulized bronchodilators, IV steroids and pulmonary consultation. Patient should have vital signs and pulse oximetry checked as well. Oxygen should be supplemented and weaned as tolerated.. Critical Care Note Critical Care Note Critical Care Time: 30-74 min
--- NOTE | 2016-12-28 14:10 | NUR ---
PORT CXR DONE.
[2016-12-28] MEDS ORDERED: FUROSEMIDE20 M1 PO (14:14)
--- NOTE | 2016-12-28 14:22 | NUR ---
LABS DRAWN AND SENT BY THIS [facility] BLUE, SST, LAV
[2016-12-28 14:40] LABS: ABSOLUTE BASOPHIL COUNT 0 /CUMM (0.0-0.2); ABSOLUTE EOSINOPHIL COUNT 0 /CUMM (0.0-0.7); ABSOLUTE LYMPH COUNT 0.4 /CUMM (1.2-3.4); EOSINOPHIL % 0.1 % (0-5)
[2016-12-28 14:43] LABS: ABSOLUTE GRANULOCYTE CT 14.7 /CUMM (1.4-6.5); ABSOLUTE MONOCYTE COUNT 0.9 /CUMM (0.10-0.60); BASOPHIL % 0 % (0.0-2.0); GRANULOCYTE % 91.7 % (42.2-75.2); MEAN CORPUSCULAR HGB 28.1 PG (27.0-31.0); MEAN CORPUSCULAR VOLUME 85.1 FL (81.0-99.0); MEAN PLATELET VOLUME 6.8 FL (7.4-10.4); PLATELET COUNT 354 /CUMM (130-400); RBC DISTRIBUTION WIDTH 16.9 % (11.5-14.5); RED BLOOD CELL CT 5.04 /CUMM (4.20-5.40)
[2016-12-28 14:46] LABS: HEMATOCRIT 42.9 % (37-47)
--- NOTE | 2016-12-28 14:49 | RADIOLOGY REPORT ---
EXAMINATION: XR PORTABLE CHEST CLINICAL INFORMATION: COPD, CHF. Shortness of breath COMPARISON: Chest x-ray dated 12/19/2016 TECHNIQUE: Portable frontal view of the chest was obtained. FINDINGS: Bullous emphysematous changes noted again in bilateral upper lobes. Streaky linear opacity left midlung with no significant interval change. Stable prominence of the pulmonary markings and hazy opacity noted in the right infrahilar region. Prominence of the bronchial markings bilateral lungs representing chronic change. Slight interval movement in the left-sided pleural effusion. IMPRESSION: Stable linear opacity left midlung. Improving left-sided pleural effusion. Stable hazy opacity and prominence of the pulmonary/bronchial markings notably in the right infrahilar region. Stable emphysematous changes with bullous emphysema bilateral apices.
--- NOTE | 2016-12-28 15:14 | NUR ---
REPORT HANDED OFF TO ARTURO HERRERA RN.
--- NOTE | 2016-12-28 15:30 | NUR ---
ASSUMED CARE OF PT. PT NOTABLY SOB ESPECIALLY WITH TALKING. PT ANXIOUS
--- NOTE | 2016-12-28 16:28 | NUR ---
PT MEDICATED WITH ATIVAN FOR SOB AND ANXIETY
--- NOTE | 2016-12-28 17:33 | NUR ---
PT SLEEPING. RESPIRATIONS EVEN AND UNLABORED. SATS 95% ON 3 LITERS OF O2
--- NOTE | 2016-12-28 18:27 | NUR ---
PT AMBULATED TO BATHROOM AND BACK TO STRETCHER WHILE ON 3 LITERS O2. SATS 88-94% WHILE WALKING. PT MOVED VERY SLOWLY DURING ACTIVITY AND WAS SOB THROUGHOUT WALK. HEART RATE 114 WHILE WALKING. PT NOW BACK IN ROOM, EATING DINNER.
--- NOTE | 2016-12-28 18:29 | NUR ---
DR SINGH SPOKE WITH PT AND DISCUSSED OPTIONS. WAITING FOR SON TO ARRIVE TO HOSPITAL TO REVIEW PLAN. PER DR SINGH CASE MANAGEMENT CONSULTED TO CHECK INTO SHORT TERM REHAB.
--- NOTE | 2016-12-28 20:30 | NUR ---
SON AT BEDSIDE. SON VERBALIZED UNDERSTANDING OF PLAN TO ADMIT OBSERVATITON. PT AWAKE, ALERT. WITHOUT COMPLAINTS
--- NOTE | 2016-12-28 20:33 | History & Physical ---
See Addendum HARISH BARRAGAN MD 12/28/162031: General Information and HPI MD Statement: I have seen and personally examined YISEL JAUREGUI and documented this H&P. The patient is a 76 year old F who presented with a patient stated chief complaint of [severe difficulty breathing since yesterday]. Source of Information: patient Exam Limitations: no limitations History of Present Illness: 76-year-old female with past medical history of atrial fibrillation on Eliquis, COPD on 1.5-2 L home oxygen, anxiety, lung cancer status post radiation, presented to the hospital for severe difficulty breathing since yesterday. She was recently hospitalized in the past 2 weeks and was treated for COPD exacerbation and pneumonia. She was not able to tolerate doxycycline because it gave her diarrhea. She has been doing well for the first few days of getting home. However she started having difficulty breathing since yesterday, associated with thick chunky bloody sputum. The hemoptysis is not new, she has noted hemoptysis since Eliquis was started a few months ago. She reports that her home health nurse has been sneezing. Patient has stopped smoking since 2002. Reports 1-2 glasses of wine a day. Patient's son is very concerned that she has decreased appetite and would like further evaluation by cardiology regarding her meds being the possible cause of decrease in appetite. She is denying suicide ideation at this time. However the son is concerned about her depression and would like psychiatry consult. Allergies/Medications Allergies: Coded Allergies: levofloxacin (Mild, LEGS FELT TIGHT 12/17/16) amoxicillin (ANAPHYLAXIS 12/17/16) clarithromycin (UNKNOWN - PT DOESNT REMEMBER WAS TOLD BY MD NOT TO TAKE 12/17/16 ) doxycycline (GI UPSET 12/28/16) Past History Travel History Traveled to [place] past 21 day No Medical History Neurological: dizziness EENT: allergies, POST NASAL DRIP Cardiovascular: AFIB, PT ON ELIQUIS Respiratory: COPD, emphysema, pneumonia, 1.5 - 2L O2 DEPENDENT Gastrointestinal: NONE Hepatic: NONE Renal: NONE Musculoskeletal: osteoporosis Psychiatric: anxiety Endocrine: NONE Blood Disorders: NONE Cancer(s): LEFT LUNG S/P RADIATION SEPTEMBER 2015 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 MOTHER FH: breast cancer Psychosocial History Where do you live? Home Who Do You Live With? child Services at Home: Nursing, Oxygen Primary Language: Irish Smoking Status: Former Smoker ETOH Use: occasional use Illicit Drug Use: denies illicit drug use Living Will? yes Functional Ability ADLs Independent: dressing, eating, toileting, bathing. Ambulation: independent IADLs Independent: finances, telephone, medication admin. Needs Assist: shopping, housework, food prep, transportation. Review of Systems Review of Systems Constitutional: Denies: chills, malaise. EENTM: Denies: visual changes. Cardiovascular: Reports: chest pain (chest tightness when coughing), peripheral edema. Respiratory: Reports: cough, hemoptysis, short of breath, sputum production. GI: Denies: abdominal pain, bloating, constipation, diarrhea. Genitourinary: Denies: dysuria. Exam & Diagnostic Data Last 24 Hrs of Vital Signs/I&O Vital Signs Date Time Temp Pulse Resp B/P B/P Pulse O2 O2 Flow FiO2 Mean Ox Delivery Rate 12/29 0135 93 110/60 06 2306 98.7 93 19 110/60 95 Nasal Cannula 12/28 2236 97.6 99 16 123/75 94 Nasal 2.5L Cannula 12/28 2212 97.6 100 20 102/54 96 Nasal 3.0L Cannula 12/28 2139 98.8 98 18 94/58 93 Nasal 3.0L Cannula 12/28 1949 97.7 100 16 96/57 93 Nasal 2.5L Cannula 12/28 1613 100 20 101/69 95 Nasal 2.0L Cannula 12/28 1542 92 Nasal 2.5L Cannula 12/28 1512 98.5 100 24 137/93 95 Nasal 3.0L Cannula 12/28 1506 95 Nasal 3.0L Cannula 12/28 1347 99.5 96 20 179/86 91 Nasal 2.0L Cannula Intake & Output 12/29 0800 06/02 0000 12/28 1600 Intake Total Output Total Balance Patient 45.359 kg Weight Physical Exam General Appearance Alert, Oriented X3, Cooperative, No Acute Distress Skin No Rashes, No Breakdown, No Significant Lesion, Dry skin Skin Temp/Moisture Exam: Warm/Dry Sepsis Skin Exam (color): Normal for Ethnicity HEENT Atraumatic, PERRLA, EOMI, dry mucous membrane Neck Supple, No JVD, +2 Carotid Pulse wo Bruit, No LAD Cardiovascular Normal S1, Normal S2, tachycardic Lungs decreased breath sounds diffusely Abdomen Normal Bowel Sounds, Soft, No Tenderness Neurological Normal Speech Extremities 1+ pitting edema at the ankle bruises on both legs Vascular Normal Pulses, Pulses Symmetrical Last 24 Hrs of Labs/Mannie: Laboratory Tests 12/28/16 1419: Anion Gap 8, Estimated GFR > 60, BUN/Creatinine Ratio 26.7 H, Glucose 116 H, Calcium 8.8, Troponin I < 0.01, Fel-A-Jgryzflqdkl Pept 340 H, CBC w Diff MAN DIFF ORDERED, RBC 5.04, MCV 85.1, MCH 28.1, RDW 16.9 H, MPV 6.8 L, Gran % 91.7 H, Lymphocytes % 2.7 L, Monocytes % 5.5, Eosinophils % 0.1, Basophils % 0 L, Absolute Granulocytes 14.7 H, Absolute Lymphocytes 0.4 L, Absolute Monocytes 0.9 H, Absolute Eosinophils 0, Absolute Basophils 0, Platelet Estimate ADEQUATE , Normocytic RBCs VERIFIED, Normochromic RBCs VERIFIED, PUBS MCHC 33.0 Microbiology 12/28 2246 URINE ROUT: Legionella Antigen - ORD 12/28 2246 URINE ROUT: Streptococcus pneumoniae Antigen (M - ORD 12/28 2246 LOWER RESP: Respiratory Culture - ORD 12/28 2246 LOWER RESP: Gram Stain - ORD Diagnostic Data EKG Results EKG sinus tachycardia, rate 106, left ventricular hypertrophy, no acute ST-T wave changes, QTC 436, inverted P waves in V1 and V2, Q waves in lead 2, 3, aVF, that is old. CXR Results EXAM TYPE: RAD - XRY-PORTABLE CHEST XRAY EXAMINATION: XR PORTABLE CHEST CLINICAL INFORMATION: COPD, CHF. Shortness of breath COMPARISON: Chest x-ray dated 12/19/2016 TECHNIQUE: Portable frontal view of the chest was obtained. FINDINGS: Bullous emphysematous changes noted again in bilateral upper lobes. Streaky linear opacity left midlung with no significant interval change. Stable prominence of the pulmonary markings and hazy opacity noted in the right infrahilar region. Prominence of the bronchial markings bilateral lungs representing chronic change. Slight interval movement in the left-sided pleural effusion. IMPRESSION: Stable linear opacity left midlung. Improving left-sided pleural effusion. Stable hazy opacity and prominence of the pulmonary/bronchial markings notably in the right infrahilar region. Stable emphysematous changes with bullous emphysema bilateral apices. DICTATED BY: FERNANDO SAAB MD DATE/TIME DICTATED:12/28/161441 Assessment/Plan Assessment: 76-year-old female with past medical history of atrial fibrillation on Eliquis, COPD on 1.5-2 L home oxygen, anxiety, lung cancer status post radiation, presented to the hospital for dyspnea, with desaturation to 89% on 3 L via nasal cannula on ambulation and noticeably dyspneic. Patient is placed in observation pending cardiology, pulmonology, psychiatry evaluation, for decrease in appetite which could be secondary to her cardiac meds (dronaderone giving her nausea), dyspnea, and depression respectively. Problem list: # Acute hypoxic respiratory failure most likely due to COPD exacerbation # Loss of appetite, with weight loss # Depression # Acute hypoxic respiratory failure most likely due to COPD exacerbation * Ceftriaxone 1000 mg daily, cannot receive azithromycin/moxifloxacin due to interaction with dronaderone * Solu-Medrol 40 mg every 12 * Symbicort * Spiriva * Pulm consult with Dr. Guevara in am # Loss of appetite, with weight loss, nausea with dronaderone. Hx of atrial fibrillation * Cardio consult with Dr Plunkett in the morning * Cardizem SR 90 mg daily * Dronaderone 400 mg twice a day * Eliquis 2.5 mg twice a day # Depression * Psychiatry consult in am Diet: heart healthy DVT ppx: alps and eliquis FULL CODE As Ranked By This Provider Problem List: 1. Acute bronchitis with chronic obstructive pulmonary disease (COPD) Core Measures/Miscellaneous Acute Coronary Syndrome ACS Diagnosis: No Cerebrovascular Accident CVA/TIA Diagnosis: No Congestive Heart Failure CHF Diagnosis: No Venous Thromboembolism VTE Risk Factors: Age > 40 [facility] prophylaxis d/t: No contraindications No VTE Pharm Prophylaxis d/t: No contraindications VTE Diagnosis: No VTE Type: NONE VTE Confirmed by (Test): NONE Severe Sepsis Severe Sepsis Present: No Septic Shock Septic Shock Present: No Miscellaneous Documentation Attending Case Discussed With: CHI LEY MD Primary Care Physician: CHI LEY MD Patient sees these Specialists Dr Guevara pulkathleen Plunkett cardio Level of Patient Care: General Medicine NIEVES MOSES 12/28/16 2212: General Information and HPI Allergies/Medications Home Med list Albuterol Sulfate 0.63 MG/3 ML VIAL.NEB 1 Vial INH/AMOS TID COPD (Reported) Reason to Stop at ADM:[facility] ORDERS Albuterol Sulfate (Proair Respiclick) 90 MCG AER.POW.BA 2 PUFF INH Q4-6 PRN COPD Reason to Stop at ADM: [facility] ORDERS Apixaban (Eliquis) 2.5 MG TABLET 1 TAB PO BID BLOOD THINNER (Reported) Diltiazem HCl (Diltiazem 12HR ER) 90 MG CAP.ER.12H 1 CAP PO DAILY HEART ( Reported) Dronedarone HCl (Multaq) 400 MG TABLET 400 MG PO BID Atrial fibrillation Fluticasone/Salmeterol (Advair 250-50 Diskus) 1 EACH BLST.W.DEV 1 PUF INH BID COPD (Reported) Reason to Stop at ADM: [facility] ORDERS Tiotropium [place] (Spiriva) 18 MCG CAP.W.DEV 1 CAP INH DAILY COPD (Reported) Reason to Stop at ADM: [facility] ORDER Resident Review Statement Resident Statement: examined this patient, discussed with internet marketing assistant, agreed with internet marketing assistant, discussed with family, reviewed EMR data (avail), discussed with nursing , discussed with case mgmt, reviewed images, amended to note Other Findings: 76-year-old female with a past medical history of end-stage COPD on 1.5-2 L oxygen, A. fib on Linda quests, lung cancer status post radiation in September 2015 with a recent admission and discharge on December 22 for COPD exacerbation and pneumonia resents to the ER with complaints of severe difficulty breathing that started yesterday. Her concentration shortness of breath was constant and getting worse on exertion. Also endorsed little chest heaviness with cough and phlegm production. She was treated with Solu-Medrol and one half before coming to the hospital. Patient states that she was doing well until yesterday when she started to have shortness of breath. She also endorses bringing up thick junky amounts of bloody sputum. She states that the hemoptysis is nothing new and has been going on ever since she was placed on Linda quests. She does endorse history of sick contacts stating that the home health nurse has been coughing and sneezing as well as her son was had some upper respiratory symptoms. She denies any chest pain, palpitations, nausea, vomiting however does endorse bloating which she attributes to her being on multi-Eliquis. She states that she normally uses a pillow behind her back however last night she had to sit in the chair. Currently denies any suicidal ideation however the patient's son is concerned about her suffering from depression. He also wants cardiology to evaluate her for her medications. Patient is a former smoker who quit smoking back in 2002. She does endorse drinking alcohol about 1-2 glasses of wine on a daily basis. Review of systems otherwise be much unremarkable Vitals and admission blood pressure 179/86, respiratory rate of 20, pulse 96, MAXIMUM TEMPERATURE 99.5 saturating 91% on 2 L of oxygen via nasal cannula. On physical exam she is alert and oriented 3, cachectic, in mild respiratory distress sitting in bed. HEENT revealed PERRLA, dry mucous membranes. Examination of the neck did not reveal an elevated JVP, cervical lymphadenopathy. Cardiovascular exam revealed normal S1, S2, no murmurs rubs or gallops appreciated. Respiratory exam revealed decreased breath sounds bilaterally. Abdominal exam was benign with abdomen soft, nontender, non- distended with normal bowel sounds in all 4 quadrants. Examination of the lower extremities revealed 1+ pitting edema along the ankles and multiple bruises located anteriorly, along her haas. Pulses were intact bilaterally. Labs pertinent for leukocytosis with a white blood cell count of 16,000, platelet count of 354,000. Serum chemistries revealed hyponatremia with sodium 134, potassium 4.3, bicarbonate of 29, anion gap 8, BUN 16 and creatinine 0.6. Serum glucose elevated to 116. First set of troponin less than 0.01 with a proBNP of 340. Chest x-ray revealed stable linear opacity in the left midlung, improving left- sided pleural effusion, stable hazy opacity and prominence of the pulmonary/ bronchial markings notably in the right infrahilar region with stable lymph isometer changes with bullous of isomer bilateral apices. The ER she received Ativan 0.5 mg 1 orally and albuterol inhaler. She became dyspneic and dropped her oxygen saturation to 89% on minimal exertion while ambulating to the bathroom and so will be based under observation for COPD exacerbation. Assessment and plan Admit patient to [facility] #Acute hypoxic respiratory failure Most likely secondary to COPD exacerbation TRC nebs Continue on methylprednisolone 40 mg twice a day We'll start her on ceftriaxone as she is on multaq and placing her on azithromycin will increase of prolonged QTC Follow-up will respiratory cultures, urinary antigen for strep and legionella Pulmonary consult with Dr. Fischer in a.m. Continue to wean off oxygen to maintain saturations greater than 88%. #History of atrial fibrillation Continue on Eliquis 2.5 mg twice a day, diltiazem 90 mg daily, [id number] mg twice a day by mouth Cardiology consult with Dr. Plunkett in a.m. as patient and family is concerned about her medications #Depression Patient endorses feeling low, and son wants psychiatry to evaluate for deprression. Patient denies SI/HI. - F/U Psych consult. DVT prophylaxis On Eliquis Diet Heart healthy CODE STATUS Full code
--- NOTE | 2016-12-28 20:42 | PN- Att Addend ---
Attending Addendum Attending Brief Note 76 year old female again comolaining of worsening breathing came to the ER some response to respiratory theraphy and IV steroids but desaturated with little exertion will keep in observation. Son concerned that patient may be increasingly more depressed and the lack of appetite he worries could be from her new heart medications, will request pulmonary, psychiatry and cardiology evaluations in AM. CXR :stable linear opacity left mid lung, Improving left sided pleural effusion.Stable hazy opacity and prominence of the pulmonary/bronchial markings rt infrahilar region. Changes from emohysema stable. Laboratory Tests 12/28 1419 Chemistry Sodium (137 - 145 mmol/L) 134 L Potassium (3.5 - 5.1 mmol/L) 4.3 Chloride (98 - 107 mmol/L) 96 L Carbon Dioxide (22 - 30 mmol/L) 29 Anion Gap (5 - 16) 8 BUN (7 - 17 mg/dL) 16 Creatinine (0.5 - 1.0 mg/dL) 0.6 Estimated GFR (>60 ml/min) > 60 BUN/Creatinine Ratio (7 - 25 %) 26.7 H Glucose (65 - 99 mg/dL) 116 H Calcium (8.4 - 10.2 mg/dL) 8.8 Troponin I (< 0.11 ng/ml) < 0.01 Jwn-K-Sajdzktxpoh Pept (<125 pg/mL) 340 H Hematology CBC w Diff MAN DIFF ORDERED WBC (4.8 - 10.8 /CUMM) 16.0 H RBC (4.20 - 5.40 /CUMM) 5.04 Hgb (12.0 - 16.0 G/DL) 14.2 Hct (37 - 47 %) 42.9 MCV (81.0 - 99.0 FL) 85.1 MCH (27.0 - 31.0 PG) 28.1 RDW (11.5 - 14.5 %) 16.9 H Plt Count (130 - 400 /CUMM) 354 MPV (7.4 - 10.4 FL) 6.8 L Gran % (42.2 - 75.2 %) 91.7 H Lymphocytes % (20.5 - 51.1 %) 2.7 L Monocytes % (1.7 - 9.3 %) 5.5 Eosinophils % (0 - 5 %) 0.1 Basophils % (0.0 - 2.0 %) 0 L Absolute Granulocytes (1.4 - 6.5 /CUMM) 14.7 H Absolute Lymphocytes (1.2 - 3.4 /CUMM) 0.4 L Absolute Monocytes (0.10 - 0.60 /CUMM) 0.9 H Absolute Eosinophils (0.0 - 0.7 /CUMM) 0 Absolute Basophils (0.0 - 0.2 /CUMM) 0 Platelet Estimate (ADEQUATE) ADEQUATE Normocytic RBCs VERIFIED Normochromic RBCs VERIFIED PUBS MCHC (33.0 - 37.0 G/DL) 33.0
--- NOTE | 2016-12-28 21:40 | NUR ---
PT SLEEPING INTERMITTENTLY THIS EVENING. CURRENTLY WITHOUT SOB. SATS 93% ON 3L NC. BLOOD PRESSURE LOWER THEN ON ADMISSION. PT DID GET DOSE OF ATIVAN THIS AFTERNOON
--- NOTE | 2016-12-28 21:52 | NUR ---
PT BED ASSIGNMENT 235-2
--- NOTE | 2016-12-28 22:32 | NUR ---
HOUSE STAFF IN TO SEE PT
--- NOTE | 2016-12-28 22:32 | NUR ---
REPORT CALLED TO KATE ON 2NA. HOSP IV PLACED
[2016-12-28 23:06] VITALS: BP 110/60
--- NOTE | 2016-12-29 | NUR ---
PT ARRIVED TO UNIT AT 2245 VIA STRETCHER FROM ER. PT A+Ox3 ON 3L NC. PT ORIENTED TO ROOM, CALL SINGH, STAFF, SURROUNDINGS. OBSERVATION FORM AND ASSESSMENT COMPLETE. NO COMPLAINTS AT THIS TIME. WILL CONTINUE TO CLOSELY MONITOR.
[2016-12-29 07:02] VITALS: BP 108/66
--- NOTE | 2016-12-29 07:32 | PN- Housestaff ---
Subjective Follow-up For: Acute hypoxic respiratory failure secondary to COPD exacerbation. Subjective: I saw and examined the patient today morning She reports shortness of breath, better than yesterday. She had a significant concern regarding nausea secondary to cardiac medications especially Dronedarone. Still reports significant cough with phlegm production, apparently clearing out. No significant overnight issues Review of Systems Constitutional: Reports: see HPI. Objective Last 24 Hrs of Vital Signs/I&O Vital Signs Date Time Temp Pulse Resp B/P B/P Pulse O2 O2 Flow FiO2 Mean Ox Delivery Rate 12/29 0702 98.0 93 20 108/66 95 Nasal Cannula 12/29 0135 93 110/60 12/29 0000 94 Nasal 3.0L Cannula 12/28 2306 98.7 93 19 110/60 95 Nasal Cannula 12/28 2236 97.6 99 16 123/75 94 Nasal 2.5L Cannula 12/28 2212 97.6 100 20 102/54 96 Nasal 3.0L Cannula 12/28 2139 98.8 98 18 94/58 93 Nasal 3.0L Cannula 12/28 1949 97.7 100 16 96/57 93 Nasal 2.5L Cannula 12/28 1613 100 20 101/69 95 Nasal 2.0L Cannula 12/28 1542 92 Nasal 2.5L Cannula 12/28 1512 98.5 100 24 137/93 95 Nasal 3.0L Cannula 12/28 1506 95 Nasal 3.0L Cannula 12/28 1347 99.5 96 20 179/86 91 Nasal 2.0L Cannula Intake & Output 12/29 0800 06 0000 12/28 1600 Intake Total 520 Output Total Balance 520 Intake, Oral 520 Patient 45.359 kg Weight Physical Exam General Appearance: Alert, Oriented X3, Cooperative, Mild Distress Skin: No Rashes, No Breakdown HEENT: Atraumatic Neck: Supple Cardiovascular: Normal S1, Normal S2 Lungs: poor air entry, with wheezing Abdomen: Normal Bowel Sounds, Soft, No Tenderness Neurological: Normal Tone, Sensation Intact, Cranial Nerves 3-12 NL Extremities: No Clubbing, No Cyanosis, No Edema Vascular: Normal Pulses, Pulses Symmetrical Current Medications: Current Medications Sig/Kirill Start time Last Medication Dose Route Stop Time Status Admin Albuterol Sulfate 3 ML ONCE ONE 12/28 1545 DC 12/28 INH 12/28 1546 1542 Apixaban 2.5 MG BID 12/28 2242 AC 12/29 PO 0136 Azithromycin 500 MG DAILY 12/29 1000 CAN Sodium Chloride 250 ML IV Budesonide/ 2 PUF BID 12/29 1000 AC Formoterol Fumarate INH Ceftriaxone Sodium 1,000 MG DAILY 12/29 1000 AC IV Diltiazem HCl 90 MG DAILY 12/29 1000 AC PO Dronedarone 400 MG BID 12/28 2243 AC 12/29 PO 0135 Lorazepam 0 .STK-MED ONE 12/28 1555 DC PO Lorazepam 0.5 MG ONE ONE 12/28 1545 DC 12/28 PO 12/28 1546 1607 Methylprednisolone 40 MG Q12 12/28 2246 AC 12/29 IV 0136 Sodium Chloride 2 SPRAY Q4P PRN 12/29 0645 AC MERLE Tiotropium [place] 1 PUF DAILY 12/29 1000 AC INH Last 24 Hrs of Lab/Mannie Results Last 24 Hrs of Labs/Mics: Laboratory Tests 12/29/16 0610: Anion Gap 6, Estimated GFR > 60, BUN/Creatinine Ratio 28.3 H, CBC w Diff NO MAN DIFF REQ, RBC 4.16 L, MCV 85.6, MCH 28.2, RDW 16.5 H, MPV 7.4, Gran % 97.6 H, Lymphocytes % 1.2 L, Monocytes % 1.2 L, Eosinophils % 0, Basophils % 0 L, Absolute Granulocytes 13.9 H, Absolute Lymphocytes 0.2 L, Absolute Monocytes 0.2, Absolute Eosinophils 0, Absolute Basophils 0, PUBS MCHC 33.0 Microbiology 12/28 2246 URINE ROUT: Legionella Antigen - CAN Cancelled: SPECIMEN NOT RECEIVED IN LABORATORY 12/28 2246 URINE ROUT: Streptococcus pneumoniae Antigen (M - CAN Cancelled: SPECIMEN NOT RECEIVED IN LABORATORY 12/28 2246 LOWER RESP: Respiratory Culture - CAN Cancelled: SPECIMEN NOT RECEIVED IN LABORATORY 12/28 2246 LOWER RESP: Gram Stain - CAN Cancelled: SPECIMEN NOT RECEIVED IN LABORATORY Assessment/Plan Assessment: Mr. molina is a 76-year-old female with past medical history significant for COPD (1.5-2L home oxygen), A. fib on Eliquis, lung cancer status post right upper lobe resection. She presented to the ER yesterday with productive cough, progressive worsening of dyspnea, depression, nausea and weight loss secondary to cardiac medications (dronedarone). She had a white count of 16, sodium of 134 in ER Chest x-ray did show opacity in the left midlung, improving left-sided pleural effusion, stable hazy opacity and prominence of the pulmonary/bronchial markings notably in the right infrahilar region with stable lymph isometer changes with bullous of isomer bilateral apices. As she started desaturating to 89% with minimal exertion in ER she was placed in observation and general medicine floor Continue to monitor observation Plan Acute hypoxic respiratory failure secondary to COPD exacerbation * Methylprednisone IV every 8 40 mg--> every 12 * IV ceftriaxone, not on azithromycin due to risk of prolonged QTc (on dronedarone) * Mucinex twice a day * TRC/Nebs Atrial Fibrillation * On eliquis 2.5 mg twice a day, Dronedarone 400mg BID, Diltiazem 90mg daily * Reports loss of appetite, nausea, weight loss secondary to cardiac medications * Tried to consult Dr. Plunkett in the morning Depression * Psychiatric consulted * Recommended return to [facility], participating Psychotherapy groups if interested DVT prophylaxis * On Eliquis CODE STATUS * Full code Problem List: 1. Acute bronchitis with chronic obstructive pulmonary disease (COPD) 2. COPD exacerbation 3. Atrial fibrillation 4. Exertional dyspnea 5. Hyponatremia Pain Ratin Pain Location: n/a Pain Goal: Pain 4 or less Pain Plan: tylenol prn Tomorrow's Labs & Rationales: cbc to monitor white count bep to monitor Na, K
[2016-12-29 08:12] LABS: ABSOLUTE BASOPHIL COUNT 0 /CUMM (0.0-0.2); ABSOLUTE EOSINOPHIL COUNT 0 /CUMM (0.0-0.7); ABSOLUTE GRANULOCYTE CT 13.9 /CUMM (1.4-6.5); ABSOLUTE LYMPH COUNT 0.2 /CUMM (1.2-3.4); ABSOLUTE MONOCYTE COUNT 0.2 /CUMM (0.10-0.60); BASOPHIL % 0 % (0.0-2.0); EOSINOPHIL % 0 % (0-5); MEAN CORPUSCULAR HGB 28.2 PG (27.0-31.0); MEAN CORPUSCULAR VOLUME 85.6 FL (81.0-99.0); MEAN PLATELET VOLUME 7.4 FL (7.4-10.4); RBC DISTRIBUTION WIDTH 16.5 % (11.5-14.5); RED BLOOD CELL CT 4.16 /CUMM (4.20-5.40); WHITE BLOOD CELL COUNT 14.3 /CUMM (4.8-10.8)
[2016-12-29 09:28] LABS: GRANULOCYTE % 97.6 % (42.2-75.2); HEMATOCRIT 35.6 % (37-47); PLATELET COUNT 290 /CUMM (130-400)
--- NOTE | 2016-12-29 10:43 | Cons- Psychiatry ---
Psychiatric Consult Date of Consult: 12/29/16 Reason for Consult: "depression" Entered by Dr. Leeann Duncan attending History of Present Illness: Identifying Info: 76-year-old female who resides in [place] with her son presents to [facility] emergency department on 12/28/2016 with shortness of breath. Admitted to medicine for observation to COPD exacerbation. CC: "I lost it yesterday" HPI: Patient reports a history of medical issues related to her breathing for several years. She states she was able to cope with these issues and often felt well. Approximately 2 and half years ago "things got bad," when she received a lung cancer diagnosis. She initially felt well up to treatment but since that time has had issues with frequent rehospitalization being homebound. After a recent diagnosis of A. fib started cardiac meds which she felt made her feel more depressed. Her appetite has been poor and she has been losing weight. She had previously been very independent but now relies on her son for much help with her care and is quite socially isolated. In addition to this she feels guilty for being a burden on her son. She is concerned because she doesn't feel that she can afford transport to her doctor's appointments. At present she is agreeable to returning to the cancer survivor group the cancer Center that she previously attended and was helpful for her, trialing an antidepressant, and considering outpatient psychiatric groups once she begins to feel physically better. PMH: Please see the H&P for a complete listing Atrial fibrillation on Eliquis, COPD on 1.5-2 L home oxygen, anxiety, lung cancer status post radiation Past Psych History: -Outpatient Cancer support group at Cancer Center -Inpatient None Family Psych History: Son - Unspecified anxiety d/o, attended [facility] Substance History No tobacco since 2002 1-2 glasses of wine daily when she feels physically well, sometimes a shot of vodka -Treatment None Family Substance History: Denies Social: Born in [place], raised in [place], 1 of 3 girls. with 2 living sons, one of whom lives with her in [place]. [employer] school graduate. Previously worked at [employer] and [employer] in . Abuse/Trauma: Did not obtain. Current Home Psychotropic Medications: Xanax 0.25mg PRN anxiety - does not take due to fear it will impact her breathing Current Hospital Psychotropic Medications: None Allergies: Coded Allergies: levofloxacin (Mild, LEGS FELT TIGHT 12/17/16) amoxicillin (ANAPHYLAXIS 12/17/16) clarithromycin (UNKNOWN - PT DOESNT REMEMBER WAS TOLD BY MD NOT TO TAKE 12/17/16 ) doxycycline (GI UPSET 12/28/16) Current Medications: Current Medications Sig/Kirill Start time Last Medication Dose Route Stop Time Status Admin Albuterol Sulfate 3 ML BID 12/29 1000 AC 12/29 INH 0924 Albuterol Sulfate 3 ML ONCE ONE 12/28 1545 DC 12/28 INH 12/28 1546 1542 Apixaban 2.5 MG BID 12/28 2243 AC 12/29 PO 0835 Azithromycin 500 MG DAILY 12/29 1000 CAN Sodium Chloride 250 ML IV Budesonide/ 2 PUF BID 12/29 1000 AC 12/29 Formoterol Fumarate INH 0825 Ceftriaxone Sodium 1,000 MG DAILY 12/29 1000 AC 12/29 IV 0826 Diltiazem HCl 90 MG DAILY 12/29 1000 AC 12/29 PO 0835 Dronedarone 400 MG BID 12/28 2243 AC 12/29 PO 0835 Lorazepam 0 .STK-MED ONE 12/28 1555 DC PO Lorazepam 0.5 MG ONE ONE 12/28 1545 DC / PO 12/28 1546 1607 Methylprednisolone 40 MG Q12 12/28 2246 AC 12/29 IV 0826 Sodium Chloride 2 SPRAY Q4P PRN 12/29 0645 AC 12/29 MERLE 0832 Tiotropium [place] 1 PUF DAILY 12/29 1000 AC 12/29 INH 0826 Past History Past Medical History Neurological: NONE EENT: allergies, POST NASAL DRIP Cardiovascular: AFIB Respiratory: COPD, emphysema, pneumonia, 1.5-2L [place] DEP @ HOME Gastrointestinal: NONE Hepatic: NONE Renal: NONE Musculoskeletal: osteoporosis Psychiatric: anxiety, depression Endocrine: NONE Blood Disorders: NONE Cancer(s): LEFT LUNG CANCER S/P RADIATION SEPTEMBER 2015 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/Reproductive: NONE Past Surgical History Surgical History: appendectomy, TONSILLECTOMY HYSTERECTOMY STAPH INFECTION IN COLLAR BONE CLEANED Psychosocial History Strengths/Capabilities: T[place] motivated, supportive family Physical Limitations (Interventions): COPD Psychiatric Treatment History Psych Treatment Psychiatric Treatment No Diagnosis: None Risk Factors: age (under 24/over 65), chronic/serious med cond., high anxiety/ distress Substance Use/Abuse History Drug Use/Abuse Substances Used/Abused Yes (as above) Substance Abuse Treatment Substance Abuse Treatment Past Substance Abuse [place] No Assessment/Plan Mental Status Mental Status Exam: Presentation/Appearance: Calm, cooperative with evaluation. Hospital garb. Well groomed. Orientation: x4 Sensorium: Awake and alert Eye contact: Appropriate Affect: Somewhat blunted but congruent with stated mood Mood: "So up and down," Depression: Endorses Anxiety: Endorses Thought Content: - Denies SI/HI, AH/VH, PI. States and also believes they will not kill themselves. - Denies Hopeless/Helpless Thoughts Thought Process: Linear, goal directed Associations: Appropriate Speech: Normal rate, somewhat soft Judgment: Intact Insight: Intact Cognition: Memory: Grossly intact Attention/Concentration: Grossly intact Fund of Knowledge: Adequate Abstractions: Did not assess MMSE: Did not assess Brief ROS Gait: Unsteady Sleep: Fair Appetite: Poor Energy: Low IADLs/ADLs: With assist at present Lab Results: Laboratory Tests 12/29/16 0610: Anion Gap 6, Estimated GFR > 60, BUN/Creatinine Ratio 28.3 H, CBC w Diff NO MAN DIFF REQ, RBC 4.16 L, MCV 85.6, MCH 28.2, RDW 16.5 H, MPV 7.4, Gran % 97.6 H, Lymphocytes % 1.2 L, Monocytes % 1.2 L, Eosinophils % 0, Basophils % 0 L, Absolute Granulocytes 13.9 H, Absolute Lymphocytes 0.2 L, Absolute Monocytes 0.2, Absolute Eosinophils 0, Absolute Basophils 0, PUBS MCHC 33.0 12/28/16 1419: Anion Gap 8, Estimated GFR > 60, BUN/Creatinine Ratio 26.7 H, Glucose 116 H, Calcium 8.8, Troponin I < 0.01, Sff-D-Tufhendthje Pept 340 H, CBC w Diff MAN DIFF ORDERED, RBC 5.04, MCV 85.1, MCH 28.1, RDW 16.9 H, MPV 6.8 L, Gran % 91.7 H, Lymphocytes % 2.7 L, Monocytes % 5.5, Eosinophils % 0.1, Basophils % 0 L, Absolute Granulocytes 14.7 H, Absolute Lymphocytes 0.4 L, Absolute Monocytes 0.9 H, Absolute Eosinophils 0, Absolute Basophils 0, Platelet Estimate ADEQUATE , Normocytic RBCs VERIFIED, Normochromic RBCs VERIFIED, PUBS MCHC 33.0 Microbiology 12/28 2246 URINE ROUT: Legionella Antigen - COLB 12/28 2246 URINE ROUT: Streptococcus pneumoniae Antigen (M - COLB 12/28 2246 LOWER RESP: Respiratory Culture - COLB 12/28 2246 LOWER RESP: Gram Stain - COLB 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 This has been an ongoing problem since her cancer diagnosis 2-1/2 years ago. At present the patient would benefit from and like to be engaged in treatment including psychotropic medication, support group, and psychotherapy group. Provisional Treatment Plan: 1. Please start mirtazapine 7.5 mg daily at bedtime. If tolerated may be increased to 15 mg in 1-2 weeks if necessary. 2. Please include the following in discharge instructions: - "Return to [facility] Center HUGS ([facility] [employer] [place] [facility]) held every first and third Sunday of the month from 6:30 - 8:00 PM in the [facility] dining room. Call [phone] for more information." - "If you would like to participate in psychotherapy groups at [facility] please call [phone] to arrange for an intake appointment." - "Consider participating in events at the [facility] located at [address] [place] [address]. Please call [phone] for more information." Thank you for including psychiatry in this case, we will continue to follow. A total of 70 minutes was spent with the patient with more than 50% of the time spent in counseling and/or coordination of care.
--- NOTE | 2016-12-29 10:57 | PN- Att Addend ---
Attending Addendum Attending Brief Note Still a little short of breath when she talks, but better than yesterday was seen by pulmonary and by psychiatry and recommendations were given to the cough is a little looser max 99 5 with no major changes on physical will continue treatment as per consultants recommendations monitor 1 more night Current Medications Sig/Kirill Start time Last Medication Dose Route Stop Time Status Admin Albuterol Sulfate 3 ML BID 12/29 1000 AC 12/29 INH 0924 Albuterol Sulfate 3 ML ONCE ONE 12/28 1545 DC 12/28 INH 12/28 1546 1542 Apixaban 2.5 MG BID 12/28 2243 AC 12/29 PO 0835 Azithromycin 500 MG DAILY 12/29 1000 CAN Sodium Chloride 250 ML IV Budesonide/ 2 PUF BID 12/29 1000 AC 12/29 Formoterol Fumarate INH 0825 Ceftriaxone Sodium 1,000 MG DAILY 12/29 1000 AC 12/29 IV 0826 Diltiazem HCl 90 MG DAILY 12/29 1000 AC 12/29 PO 0835 Dronedarone 400 MG BID 12/28 2243 AC 12/29 PO 0835 Lorazepam 0 .STK-MED ONE 12/28 1555 DC PO Lorazepam 0.5 MG ONE ONE 12/28 1545 DC 12/28 PO 12/28 1546 1607 Methylprednisolone 40 MG Q12 12/28 2246 AC 12/29 IV 0826 Sodium Chloride 2 SPRAY Q4P PRN 12/29 0645 AC 12/29 MERLE 0832 Tiotropium [place] 1 PUF DAILY 12/29 1000 AC 12/29 INH 0826 Laboratory Tests 12/29/16 0610: Anion Gap 6, Estimated GFR > 60, BUN/Creatinine Ratio 28.3 H, CBC w Diff NO MAN DIFF REQ, RBC 4.16 L, MCV 85.6, MCH 28.2, RDW 16.5 H, MPV 7.4, Gran % 97.6 H, Lymphocytes % 1.2 L, Monocytes % 1.2 L, Eosinophils % 0, Basophils % 0 L, Absolute Granulocytes 13.9 H, Absolute Lymphocytes 0.2 L, Absolute Monocytes 0.2, Absolute Eosinophils 0, Absolute Basophils 0, PUBS MCHC 33.0 12/28/16 1419: Anion Gap 8, Estimated GFR > 60, BUN/Creatinine Ratio 26.7 H, Glucose 116 H, Calcium 8.8, Troponin I < 0.01, Esx-E-Qdrywmipged Pept 340 H, CBC w Diff MAN DIFF ORDERED, RBC 5.04, MCV 85.1, MCH 28.1, RDW 16.9 H, MPV 6.8 L, Gran % 91.7 H, Lymphocytes % 2.7 L, Monocytes % 5.5, Eosinophils % 0.1, Basophils % 0 L, Absolute Granulocytes 14.7 H, Absolute Lymphocytes 0.4 L, Absolute Monocytes 0.9 H, Absolute Eosinophils 0, Absolute Basophils 0, Platelet Estimate ADEQUATE , Normocytic RBCs VERIFIED, Normochromic RBCs VERIFIED, PUBS MCHC 33.0 Microbiology Date/Time Procedure - Status Source Growth 12/28 2246 Legionella Antigen - COLB URINE ROUT 12/28 2246 Streptococcus pneumoniae Antigen (M - COLB URINE ROUT 12/28 2246 Respiratory Culture - COLB LOWER RESP 12/28 2246 Gram Stain - COLB LOWER RESP Vital Signs Date Time Temp Pulse Resp B/P B/P Pulse O2 O2 Flow FiO2 Mean Ox Delivery Rate 12/29 0917 Nasal 2.0L Cannula 12/29 0835 93 108/66 12/29 0835 93 108/66 12/29 0702 98.0 93 20 108 95 Nasal Cannula Intake & Output 12/29 1600 Intake Total Output Total Balance Patient 99 lb 0.01 oz Weight
--- NOTE | 2016-12-29 11:59 | Cons- Pulmonary ---
General Information and HPI Consulting Request Date of Consult: 12/29/16 Requested By: Dr. Gallagher Reason for Consult: COPD management Source of Information: patient, old records Exam Limitations: no limitations History of Present Illness: Patient seen and examined. Please see below. Allergies/Medications Allergies: Coded Allergies: levofloxacin (Mild, LEGS FELT TIGHT 12/17/16) amoxicillin (ANAPHYLAXIS 12/17/16) clarithromycin (UNKNOWN - PT DOESNT REMEMBER WAS TOLD BY MD NOT TO TAKE 12/17/16 ) doxycycline (GI UPSET 12/28/16) Home Med List: Albuterol Sulfate 0.63 MG/3 ML VIAL.NEB 1 Vial INH/AMOS TID COPD (Reported) Reason to Stop at ADM:[facility] ORDERS Albuterol Sulfate (Proair Respiclick) 90 MCG AER.POW.BA 2 PUFF INH Q4-6 PRN COPD Reason to Stop at ADM: [facility] NEB ORDERS Apixaban (Eliquis) 2.5 MG TABLET 1 TAB PO BID BLOOD THINNER (Reported) Cefuroxime Axetil (Cefuroxime) 500 MG TABLET 1 TAB PO BID PNEUMONIA Diltiazem HCl (Diltiazem 12HR ER) 90 MG CAP.ER.12H 1 CAP PO DAILY HEART ( Reported) Dronedarone HCl (Multaq) 400 MG TABLET 400 MG PO BID Atrial fibrillation Fluticasone/Salmeterol (Advair 250-50 Diskus) 1 EACH BLST.W.DEV 1 PUF INH BID COPD (Reported) Reason to Stop at ADM: [facility] NEB ORDERS Guaifenesin (Mucinex) 600 MG TAB.ER.12H 1 TAB PO BID COUGH Prednisone 10 MG TABLET 1 TAB PO SI COPD TAKE 4TABLETS FOR 2DAYS TAKE 3TABS FOR 2DAYS TAKE 2TABS FOR 2DAYS TAKE 1TAB FOR 2DAYS Tiotropium [place] (Spiriva) 18 MCG CAP.W.DEV 1 CAP INH DAILY COPD (Reported) Reason to Stop at ADM: [facility] NEB ORDER Current Medications: Current Medications Sig/Kirill Start time Last Medication Dose Route Stop Time Status Admin Albuterol Sulfate 3 ML BID 12/29 1000 AC 12/29 INH 0924 Albuterol Sulfate 3 ML ONCE ONE 12/28 1545 DC 12/28 INH 12/28 1546 1542 Apixaban 2.5 MG BID 12/28 2243 AC 12/29 PO 0835 Azithromycin 500 MG DAILY 12/29 1000 CAN Sodium Chloride 250 ML IV Budesonide/ 2 PUF BID 12/29 1000 AC 12/29 Formoterol Fumarate INH 0825 Ceftriaxone Sodium 1,000 MG DAILY 12/29 1000 AC 12/29 IV 0826 Diltiazem HCl 90 MG DAILY 12/29 1000 AC 12/29 PO 0835 Dronedarone 400 MG BID 12/28 2243 AC 12/29 PO 0835 Lorazepam 0 .STK-MED ONE 12/28 1555 DC PO Lorazepam 0.5 MG ONE ONE 12/28 1545 DC 12/28 PO 12/28 1546 1607 Methylprednisolone 40 MG Q12 12/28 2246 AC 12/29 IV 0826 Sodium Chloride 2 SPRAY Q4P PRN 12/29 0645 AC 12/29 MERLE 0832 Tiotropium [place] 1 PUF DAILY 12/29 1000 AC 12/29 INH 0826 Review of Systems Review of Systems Constitutional: Reports: chills, malaise, weakness, unexplained weight loss. Denies: diaphoresis, fever. EENTM: Denies: no symptoms. Cardiovascular: Reports: chest pain. Denies: edema, orthopena, palpitations, peripheral edema, syncope. Respiratory: Reports: cough, short of breath, sputum production, wheezing. Denies: hemoptysis, orthopnea, stridor. GI: Reports: distention. Denies: abdominal pain, constipation, diarrhea, melena, bloody stool. Genitourinary: Denies: no symptoms. Neurological/Psychological: Reports: anxiety. 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 MOTHER FH: breast cancer Psychosocial History Where Do You Live? Home Who Do You Live With? child Services at Home: Nursing, Oxygen Primary Language: Ukrainian Smoking Status: Former Smoker ETOH Use: occasional use Illicit Drug Use: denies illicit drug use Living Will? yes Functional Ability ADLs Independent: dressing, eating, toileting, bathing. Ambulation: independent IADLs Independent: finances, telephone, medication admin. Needs Assist: shopping, housework, food prep, transportation. Exam & Diagnostic Data Last 24 Hrs of Vital Signs/I&O Vital Signs Date Time Temp Pulse Resp B/P B/P Pulse O2 O2 Flow FiO2 Mean Ox Delivery Rate 12/29 0917 Nasal 2.0L Cannula 12/29 0835 93 108/66 12/29 0835 93 108/66 12/29 0702 98.0 93 20 108/66 95 Nasal Cannula 12/29 0135 93 110/60 06 0000 94 Nasal 3.0L Cannula 12/28 2306 98.7 93 19 110/60 95 Nasal Cannula 12/28 2236 97.6 99 16 123/75 94 Nasal 2.5L Cannula 12/28 2212 97.6 100 20 102/54 96 Nasal 3.0L Cannula 12/28 2139 98.8 98 18 94/58 93 Nasal 3.0L Cannula 12/28 1949 97.7 100 16 96/57 93 Nasal 2.5L Cannula 12/28 1613 100 20 101/69 95 Nasal 2.0L Cannula 12/28 1542 92 Nasal 2.5L Cannula 12/28 1512 98.5 100 24 137/93 95 Nasal 3.0L Cannula 12/28 1506 95 Nasal 3.0L Cannula 12/28 1347 99.5 96 20 179/86 91 Nasal 2.0L Cannula Intake & Output 12/29 1600 12/29 0800 12/29 0000 Intake Total 520 Output Total Balance 520 Intake, Oral 520 Patient 99 lb 0.01 oz 100 lb Weight Physical Exam General Appearance: no apparent distress, comfortable, thin Head: atraumatic Eyes: Bilateral: PERRL. Neck: supple Respiratory: decreased breath sounds, wheezing Cardiovascular: tachycardia, irregularly irregular Gastrointestinal: normal bowel sounds, soft, non-tender Extremities: no edema Skin: intact, normal color, warm/dry Last 48 Hrs of Labs/Mannie: Laboratory Tests 12/29/16 0610: Anion Gap 6, Estimated GFR > 60, BUN/Creatinine Ratio 28.3 H, CBC w Diff NO MAN DIFF REQ, RBC 4.16 L, MCV 85.6, MCH 28.2, RDW 16.5 H, MPV 7.4, Gran % 97.6 H, Lymphocytes % 1.2 L, Monocytes % 1.2 L, Eosinophils % 0, Basophils % 0 L, Absolute Granulocytes 13.9 H, Absolute Lymphocytes 0.2 L, Absolute Monocytes 0.2, Absolute Eosinophils 0, Absolute Basophils 0, PUBS MCHC 33.0 12/28/16 1419: Anion Gap 8, Estimated GFR > 60, BUN/Creatinine Ratio 26.7 H, Glucose 116 H, Calcium 8.8, Troponin I < 0.01, Lnk-Q-Erxolhobnfv Pept 340 H, CBC w Diff MAN DIFF ORDERED, RBC 5.04, MCV 85.1, MCH 28.1, RDW 16.9 H, MPV 6.8 L, Gran % 91.7 H, Lymphocytes % 2.7 L, Monocytes % 5.5, Eosinophils % 0.1, Basophils % 0 L, Absolute Granulocytes 14.7 H, Absolute Lymphocytes 0.4 L, Absolute Monocytes 0.9 H, Absolute Eosinophils 0, Absolute Basophils 0, Platelet Estimate ADEQUATE , Normocytic RBCs VERIFIED, Normochromic RBCs VERIFIED, PUBS MCHC 33.0 Diagnostic Data CXR Results Stable linear opacity left midlung. Improving left-sided pleural effusion. Stable hazy opacity and prominence of the pulmonary/bronchial markings notably in the right infrahilar region. Stable emphysematous changes with bullous emphysema bilateral apices. Assessment/Plan Impression/Plan: 1. Acute hypoxic respiratory failure most likely due to COPD exacerbation. 2. Loss of appetite, with weight loss and poor appetite. 3. Depression. 4. Previous pleural effusion, improving on current imaging. 5. History of AF, on Eliquis. Recommendations: * Continue empiric antibiotics - agree with change due to possible QTC prolongation. * Continue IV Solumedrol at current dose of 40 mg q 12 hours. * Continut Symbicort and Spiriva. * Total respiratory care to continue. * Oxygen for saturations greater than 92%. * Agree with psychiatric input. * Continue with anticoagulation. Follow up with cardiology input. * DVT prophylaxis at all times - on Eliquis. * Continue all supportive care. * Thank you for the consult, will follow along with you and provide further recommendations as necessary. Consult Acknowledgment - Thank you for your consult request.
[2016-12-29 15:35] VITALS: BP 126/64
--- NOTE | 2016-12-29 16:31 | NUR ---
1630- PT ROOM MOVED FROM 235-[address] NATHAN BOYCE NOTIFIED OF MOVE.
--- NOTE | 2016-12-29 18:32 | Patient Discharge Instructions ---
Discharge Instructions General Discharge Information You were seen/treated for: COPD exacerbation Special Instructions: Please follow up with your PCP in a week Please follow up with in a week Please follow up with in a week Please follow up cancer center HUGS ([facility] [employer] [facility] support) held every first and third sunday from 6:30am - 8:00PM Please call [phone] - if likes to participate in psychotherapy groups. Please Consider participating in events at the [facility] located at [address] [place] [address]. Please call [phone] for more information. Patient developed visual HALLUCINATIONS after starting mirtazapine first dose. Spoke with psychiatrist oracle consultant. Recommended to stop mirtazapine and follow up with psychiatrist as an outpatient for depression. Off note patient denied any suicidal or homicidal ideation. Patient agreed with the plan. Diet Recommended Diet: Heart Healthy Activity Activity Self Limited: Yes Acute Coronary Syndrome Inclusion Criteria At DC or during hospital stay patient has or had the following: ACS DIAGNOSIS No Discharge Core Measures Meds if any: Prescribed or Continued at Discharge Meds if any: NOT Prescribed or Continued at Discharge Congestive Heart Failure Inclusion Criteria At DC or during hospital stay patient has or had the following: CHF DIAGNOSIS No Discharge Core Measures Meds if any: Prescribed or Continued at Discharge Meds if any: NOT Prescribed or Continued at Discharge Cerebrovascular accident Inclusion Criteria At DC or during hospital stay patient has or had the following: CVA/TIA Diagnosis No Discharge Core Measures Meds if any: Prescribed or Continued at Discharge Meds if any: NOT Prescribed or Continued at Discharge Venous thromboembolism Inclusion Criteria VTE Diagnosis No VTE Type NONE VTE Confirmed by (Test) NONE Discharge Core Measures - Per Current guidelines, there needs to be overlap - treatment for the first 5 days of Warfarin therapy. - If discharged on Warfarin prior to 5 days of - overlap therapy, the patient will need to be - assessed for post discharge needs including - *Post discharge parental anticoagulation - *Warfarin and/or parental anticoagulation education - *Follow up date to check INR post discharge At least 5 days overlap therapy as Inpatient No Meds if any: Prescribed or Continued at Discharge Note: Overlap Therapy is Warfarin and Anticoagulant Meds if any: NOT Prescribed or Continued at Discharge
[2016-12-29 22:55] VITALS: BP 116/60
[2016-12-30 06:25] VITALS: BP 100/62
[2016-12-30 08:22] LABS: ABSOLUTE BASOPHIL COUNT 0 /CUMM (0.0-0.2); ABSOLUTE EOSINOPHIL COUNT 0 /CUMM (0.0-0.7); ABSOLUTE LYMPH COUNT 0.2 /CUMM (1.2-3.4); ABSOLUTE MONOCYTE COUNT 0.3 /CUMM (0.10-0.60); BASOPHIL % 0 % (0.0-2.0); EOSINOPHIL % 0 % (0-5); HEMATOCRIT 32.8 % (37-47); MEAN CORPUSCULAR HGB 28.4 PG (27.0-31.0); MEAN CORPUSCULAR HGB CONC 33.3 G/DL (33.0-37.0); MEAN CORPUSCULAR VOLUME 85.1 FL (81.0-99.0); MEAN PLATELET VOLUME 7.2 FL (7.4-10.4); PLATELET COUNT 285 /CUMM (130-400); RBC DISTRIBUTION WIDTH 16.6 % (11.5-14.5); RED BLOOD CELL CT 3.85 /CUMM (4.20-5.40); WHITE BLOOD CELL COUNT 14.4 /CUMM (4.8-10.8)
--- NOTE | 2016-12-30 08:41 | PN- Housestaff ---
Subjective Follow-up For: In observation for COPD exacerbation Subjective: Patient is resting comfortably in bed, with additional oxygen via nasal cannula running at 2 L/m, complains that she still feels that she is wheezing occasionally, vitals have been stable with additional oxygen. No overnight issues. Review of Systems Constitutional: Reports: see HPI. Objective Last 24 Hrs of Vital Signs/I&O Vital Signs Date Time Temp Pulse Resp B/P B/P Pulse O2 O2 Flow FiO2 Mean Ox Delivery Rate 12/30 2119 68 110/58 12/30 1600 Nasal 2.0L Cannula 12/30 1414 98.2 84 18 114/58 97 12/30 1053 80 104/60 12/30 1053 80 104/60 12/30 0858 97 Nasal 2.0L Cannula 12/30 0800 98 Nasal 2.0L Cannula 12/30 0625 97.8 70 16 100/62 95 Nasal 2.0L Cannula 12/29 2334 96 Nasal 2.0L Cannula 12/29 2255 98.4 75 19 116/60 96 Nasal Cannula Intake & Output 12/30 1600 12/30 0800 12/30 0000 Intake Total 550 200 350 Output Total Balance 550 200 350 Intake, Oral 550 200 350 Number 1 Bowel Movements Physical Exam General Appearance: Alert, Oriented X3, Cooperative, No Acute Distress, has additional oxygen via NC Other Physical Findings: Clinical examination significant for bilateral wheezing, and requiring additional oxygen than home level. Rest of the clinical examination finding is the same as yesterday's. Current Medications: Current Medications Sig/Kirill Start time Last Medication Dose Route Stop Time Status Admin Albuterol Sulfate 3 ML BID 12/29 1000 AC 12/30 INH 2140 Apixaban 2.5 MG BID 12/28 224 AC 12/30 PO 2116 Budesonide/ 2 PUF BID 12/29 1000 AC 12/30 Formoterol Fumarate INH 2120 Ceftriaxone Sodium 1,000 MG DAILY 12/29 1000 AC 12/30 IV 1048 Diltiazem HCl 90 MG DAILY 12/29 1000 AC 12/30 PO 1053 Dronedarone 400 MG BID 12/28 2242 AC 12/30 PO 2118 Guaifenesin 600 MG Q12 12/29 2200 AC 12/29 PO 211 Methylprednisolone 40 MG Q12 12/28 224 AC 12/30 IV 211 Mirtazapine 7.5 MG AT BEDTIME 12/30 2199 AC 12/30 PO 2120 Sodium Chloride 2 SPRAY Q4P PRN 12/29 0645 AC 12/29 MERLE 0832 Tiotropium [place] 1 PUF DAILY 12/29 1000 AC 12/30 INH 1049 Last 24 Hrs of Lab/Mannie Results Last 24 Hrs of Labs/Mics: Laboratory Tests 12/30/16 0625: Anion Gap 7, Estimated GFR > 60, BUN/Creatinine Ratio 25.7 H, CBC w Diff NO MAN DIFF REQ, RBC 3.85 L, MCV 85.1, MCH 28.4, RDW 16.6 H, MPV 7.2 L, Gran % 97.0 H, Lymphocytes % 1.1 L, Monocytes % 1.9, Eosinophils % 0, Basophils % 0 L, Absolute Granulocytes 14.0 H, Absolute Lymphocytes 0.2 L, Absolute Monocytes 0.3, Absolute Eosinophils 0, Absolute Basophils 0, PUBS MCHC 33.3 Assessment/Plan Assessment: Mr. Vernon is a 76-year-old female with past medical history significant for COPD (1.5-2L home oxygen), A. fib on Eliquis, lung cancer status post right upper lobe resection. She presented to the ER yesterday with productive cough, progressive worsening of dyspnea, depression, nausea and weight loss secondary to cardiac medications (dronedarone). She had a white count of 16, sodium of 134 in ER. Chest x-ray did show opacity in the left midlung, improving left-sided pleural effusion, stable hazy opacity and prominence of the pulmonary/bronchial markings notably in the right infrahilar region with stable lymph isometer changes with bullous of isomer bilateral apices. As she started desaturating to 89% with minimal exertion in ER she was placed in observation and general medicine floor Continue to monitor in observation as patient is still not at baseline, his wheezing, and is requiring IV steroid therapy, and additional oxygen compared to home level. At home, she was at 1-1.5 L/m oxygen. Plan Acute hypoxic respiratory failure secondary to COPD exacerbation * Methylprednisone IV every 8 40 mg--> every 12hr * IV ceftriaxone continued, not on azithromycin due to risk of prolonged QTc (on dronedarone) * Her leukocytosis could be due to the steroid therapy. Will repeat tomorrow. * Mucinex twice a day * TRC/Nebs Atrial Fibrillation and medication side effects * On eliquis 2.5 mg twice a day, Dronedarone 400mg BID, Diltiazem 90mg daily * Reports loss of appetite, nausea, weight loss secondary to cardiac medications * Dr. Jeb Plunkett is the patient's regular evp operations. But over the weekend, the covering evp operations Neri Martinez MD was contacted regarding Dronedarone and its side effect, including the chances of substituting it with something else. Since the patient has been able to take the medication, although with some nausea and epigastric discomfort after taking it, she seems to be tolerating it otherwise. No allergic reactions, and there is no way to prove that the cause of nausea and epigastric discomfort is only due to the medication, other than to stop it and watch for relief of symptoms. Since this is not an emergency, this can be done either on Sunday when Dr. Plunkett returns , or as an outpatient. Depression * Psychiatric consulted, Mirtazapine added per Psych consult (from Sunday'). * Recommended return to [facility], participating Psychotherapy groups if interested DVT prophylaxis * On Eliquis CODE STATUS * Full code Problem List: 1. COPD exacerbation Pain Ratin Pain Location: - Pain Goal: Pain 4 or less Pain Plan: prn Tomorrow's Labs & Rationales: CBC
--- NOTE | 2016-12-30 12:55 | PN- Pulmonary ---
Subjective HPI/Critical Care Issues: Stable fatigued Objective Current Medications: Current Medications Sig/Kirill Start time Last Medication Dose Route Stop Time Status Admin Albuterol Sulfate 3 ML BID 12/29 1000 AC 12/30 INH 0856 Apixaban 2.5 MG BID 12/28 2243 AC 12/30 PO 1050 Budesonide/ 2 PUF BID 12/29 1000 AC 12/30 Formoterol Fumarate INH 1049 Ceftriaxone Sodium 1,000 MG DAILY 12/29 1000 AC 12/30 IV 1048 Diltiazem HCl 90 MG DAILY 12/29 1000 AC 12/30 PO 1053 Dronedarone 400 MG BID 12/28 2243 AC 12/30 PO 1053 Guaifenesin 600 MG Q12 12/29 2200 AC 12/29 PO 2113 Methylprednisolone 40 MG Q12 12/28 2246 AC 12/30 IV 1049 Mirtazapine 7.5 MG AT BEDTIME 12/30 2200 AC PO Patient Medication 1 ED .STK-MED ONE 12/29 1437 [place] Teaching ED 12/29 1438 Sodium Chloride 2 SPRAY Q4P PRN 12/29 0645 AC 12/29 MERLE 0832 Tiotropium [place] 1 PUF DAILY 12/29 1000 AC 12/30 INH 1049 Vital Signs & I&O Last 24 Hrs of Vitals and I&O: Vital Signs Date Time Temp Pulse Resp B/P B/P Pulse O2 O2 Flow FiO2 Mean Ox Delivery Rate 12/30 1053 80 104/60 12/30 1053 80 104/60 12/30 0858 97 Nasal 2.0L Cannula 12/30 0800 98 Nasal 2.0L Cannula 12/30 0625 97.8 70 16 100/62 95 Nasal 2.0L Cannula 12/29 2334 96 Nasal 2.0L Cannula 12/29 2255 98.4 75 19 116/60 96 Nasal Cannula 12/29 2123 94 Nasal 2.5L Cannula 12/29 2113 78 108/60 12/29 1600 Nasal 2.0L Cannula 12/29 1535 96.5 80 18 126/64 97 Nasal 2.0L Cannula Intake & Output 12/30 1600 12/30 0800 12/30 0000 Intake Total 200 350 Output Total Balance 200 350 Intake, Oral 200 350 Laboratory Tests 12/30 12/29 0625 0610 Chemistry Sodium (137 - 145 mmol/L) 137 134 L Potassium (3.5 - 5.1 mmol/L) 4.7 4.7 Chloride (98 - 107 mmol/L) 102 101 Carbon Dioxide (22 - 30 mmol/L) 28 27 Anion Gap (5 - 16) 7 6 BUN (7 - 17 mg/dL) 18 H 17 Creatinine (0.5 - 1.0 mg/dL) 0.7 0.6 Estimated GFR (>60 ml/min) > 60 > 60 BUN/Creatinine Ratio (7 - 25 %) 25.7 H 28.3 H Hematology CBC w Diff NO MAN DIFF REQ NO MAN DIFF REQ WBC (4.8 - 10.8 /CUMM) 14.4 H 14.3 H RBC (4.20 - 5.40 /CUMM) 3.85 L 4.16 L Hgb (12.0 - 16.0 G/DL) 10.9 L 11.8 L Hct (37 - 47 %) 32.8 L 35.6 L MCV (81.0 - 99.0 FL) 85.1 85.6 MCH (27.0 - 31.0 PG) 28.4 28.2 RDW (11.5 - 14.5 %) 16.6 H 16.5 H Plt Count (130 - 400 /CUMM) 285 290 MPV (7.4 - 10.4 FL) 7.2 L 7.4 Gran % (42.2 - 75.2 %) 97.0 H 97.6 H Lymphocytes % (20.5 - 51.1 %) 1.1 L 1.2 L Monocytes % (1.7 - 9.3 %) 1.9 1.2 L Eosinophils % (0 - 5 %) 0 0 Basophils % (0.0 - 2.0 %) 0 L 0 L Absolute Granulocytes (1.4 - 6.5 /CUMM) 14.0 H 13.9 H Absolute Lymphocytes (1.2 - 3.4 /CUMM) 0.2 L 0.2 L Absolute Monocytes (0.10 - 0.60 /CUMM) 0.3 0.2 Absolute Eosinophils (0.0 - 0.7 /CUMM) 0 0 Absolute Basophils (0.0 - 0.2 /CUMM) 0 0 PUBS MCHC (33.0 - 37.0 G/DL) 33.3 33.0 06/01 1419 Chemistry Sodium (137 - 145 mmol/L) 134 L Potassium (3.5 - 5.1 mmol/L) 4.3 Chloride (98 - 107 mmol/L) 96 L Carbon Dioxide (22 - 30 mmol/L) 29 Anion Gap (5 - 16) 8 BUN (7 - 17 mg/dL) 16 Creatinine (0.5 - 1.0 mg/dL) 0.6 Estimated GFR (>60 ml/min) > 60 BUN/Creatinine Ratio (7 - 25 %) 26.7 H Glucose (65 - 99 mg/dL) 116 H Calcium (8.4 - 10.2 mg/dL) 8.8 Troponin I (< 0.11 ng/ml) < 0.01 Vpd-X-Tsuuahjysty Pept (<125 pg/mL) 340 H Hematology CBC w Diff MAN DIFF ORDERED WBC (4.8 - 10.8 /CUMM) 16.0 H RBC (4.20 - 5.40 /CUMM) 5.04 Hgb (12.0 - 16.0 G/DL) 14.2 Hct (37 - 47 %) 42.9 MCV (81.0 - 99.0 FL) 85.1 MCH (27.0 - 31.0 PG) 28.1 RDW (11.5 - 14.5 %) 16.9 H Plt Count (130 - 400 /CUMM) 354 MPV (7.4 - 10.4 FL) 6.8 L Gran % (42.2 - 75.2 %) 91.7 H Lymphocytes % (20.5 - 51.1 %) 2.7 L Monocytes % (1.7 - 9.3 %) 5.5 Eosinophils % (0 - 5 %) 0.1 Basophils % (0.0 - 2.0 %) 0 L Absolute Granulocytes (1.4 - 6.5 /CUMM) 14.7 H Absolute Lymphocytes (1.2 - 3.4 /CUMM) 0.4 L Absolute Monocytes (0.10 - 0.60 /CUMM) 0.9 H Absolute Eosinophils (0.0 - 0.7 /CUMM) 0 Absolute Basophils (0.0 - 0.2 /CUMM) 0 Platelet Estimate (ADEQUATE) ADEQUATE Normocytic RBCs VERIFIED Normochromic RBCs VERIFIED PUBS MCHC (33.0 - 37.0 G/DL) 33.0 Microbiology Date/Time Procedure - Status Source Growth 12/28 2246 Legionella Antigen - CAN URINE ROUT Cancelled: SPECIMEN NOT RECEIVED IN LABORATORY 12/28 2246 Streptococcus pneumoniae Antigen (M - CAN URINE ROUT Cancelled: SPECIMEN NOT RECEIVED IN LABORATORY 12/28 2246 Respiratory Culture - CAN LOWER RESP Cancelled: SPECIMEN NOT RECEIVED IN LABORATORY 12/28 2246 Gram Stain - CAN LOWER RESP Cancelled: SPECIMEN NOT RECEIVED IN LABORATORY Impression/Plan Impression/Plan Impression/Plan: Physical Exam General Appearance: Alert, Oriented X3, Cooperative, Mild Distress Skin: No Rashes, No Breakdown HEENT: Atraumatic Neck: Supple Cardiovascular: Normal S1, Normal S2 Lungs: poor air entry, with wheezing Abdomen: Normal Bowel Sounds, Soft, No Tenderness Neurological: Normal Tone, Sensation Intact, Cranial Nerves 3-12 NL Extremities: No Clubbing, No Cyanosis, No Edema Vascular: Normal Pulses, Pulses Symmetrical 76-year-old female with a past medical history of end-stage COPD on 1.5-2 L oxygen, [facility], lung cancer status post radiation in September 2015 with a recent admission and discharge on December 22 for COPD exacerbation and pneumonia resents to the ER with complaints of severe difficulty breathing ISSUES ACOPDE left upperlobe infiltrate with trace effusion Left effusion recently which seems to have improved History of lung cancer Afib Depression REC cont steroids ABx can be switched to po soon Change to po prednisone 40 in am Rpt cxr and left lat decub in am to eval effusion Cont other meds Will follow
[2016-12-30 14:14] VITALS: BP 114/58
--- NOTE | 2016-12-30 17:16 | PN- Att Addend ---
Attending Addendum Attending Brief Note Patient is a little bit better still some shortness of breath still some cough unable to bring up sputum oxygen is on. Vital signs are stable slight better air entry. Will continue at least with one more day of IV steroids before switching to by mouth in the morning and prolonged the observation. And is stable in a.m. then will discharge 24 TOTALS 12/30 0000 06 0000 Intake Total 870 Output Total Balance 870 Intake, Oral 870 Patient 99 lb 0.01 oz 100 lb Weight Current Medications Sig/Kirill Start time Last Medication Dose Route Stop Time Status Admin Albuterol Sulfate 3 ML BID 12/29 1000 AC 12/30 INH 0856 Apixaban 2.5 MG BID 12/28 2243 AC 12/30 PO 1050 Budesonide/ 2 PUF BID 12/29 1000 AC 12/30 Formoterol Fumarate INH 1049 Ceftriaxone Sodium 1,000 MG DAILY 12/29 1000 AC 12/30 IV 1048 Diltiazem HCl 90 MG DAILY 12/29 1000 AC 12/30 PO 1053 Dronedarone 400 MG BID 12/28 2243 AC 12/30 PO 1053 Guaifenesin 600 MG Q12 12/29 2200 AC 12/29 PO 2113 Methylprednisolone 40 MG Q12 12/28 2246 AC 12/30 IV 1049 Mirtazapine 7.5 MG AT BEDTIME 12/30 2200 AC PO Sodium Chloride 2 SPRAY Q4P PRN 12/29 0645 AC 12/29 MERLE 0832 Tiotropium [place] 1 PUF DAILY 12/29 1000 AC 12/30 INH 1049 Laboratory Tests 12/30/16 0625: Anion Gap 7, Estimated GFR > 60, BUN/Creatinine Ratio 25.7 H, CBC w Diff NO MAN DIFF REQ, RBC 3.85 L, MCV 85.1, MCH 28.4, RDW 16.6 H, MPV 7.2 L, Gran % 97.0 H, Lymphocytes % 1.1 L, Monocytes % 1.9, Eosinophils % 0, Basophils % 0 L, Absolute Granulocytes 14.0 H, Absolute Lymphocytes 0.2 L, Absolute Monocytes 0.3, Absolute Eosinophils 0, Absolute Basophils 0, PUBS MCHC 33.3 12/29/16 0610: Anion Gap 6, Estimated GFR > 60, BUN/Creatinine Ratio 28.3 H, CBC w Diff NO MAN DIFF REQ, RBC 4.16 L, MCV 85.6, MCH 28.2, RDW 16.5 H, MPV 7.4, Gran % 97.6 H, Lymphocytes % 1.2 L, Monocytes % 1.2 L, Eosinophils % 0, Basophils % 0 L, Absolute Granulocytes 13.9 H, Absolute Lymphocytes 0.2 L, Absolute Monocytes 0.2, Absolute Eosinophils 0, Absolute Basophils 0, PUBS MCHC 33.0
--- NOTE | 2016-12-30 21:37 | RADIOLOGY REPORT ---
EXAMINATION: XR CHEST CLINICAL INFORMATION: Pleural effusion COMPARISON: Chest x-rays dated 12/28/2016 and 12/30/2016 and 12/19/2016, chest CT scan dated 12/19/2016 TECHNIQUE: PA, lateral and left down decubitus views of the chest were obtained. FINDINGS: Extensive bullous emphysematous changes of lungs noted with large upper lobe bulla, similar to prior exams. Atelectatic versus fibrotic changes in the left perihilar region is unchanged. Increase bronchovascular markings in the lower lungs bilaterally, similar to priors and as the result of pulmonary emphysema. Blunting of the left lateral and left posterior costophrenic angles noted on the PA and lateral chest x-rays. On the left down decubitus view, a very small amount of left-sided pleural effusion layers dependently along the left thoracic wall. However the amount of this effusion is less than CT scan and chest x-ray dated 12/19/2016. No definite pulmonary opacities seen. No pneumothorax. IMPRESSION: Severe emphysematous changes of the lungs with upper lobe bulla, unchanged. The left-sided pleural effusion has decreased, it is currently very small in size. No definite left-sided coronary opacities seen.
[2016-12-30 22:07] VITALS: BP 96/48
[2016-12-30 22:20] VITALS: BP 100/56
[2016-12-31 07:00] VITALS: BP 100/52
[2016-12-31 08:54] LABS: ABSOLUTE BASOPHIL COUNT 0 /CUMM (0.0-0.2); ABSOLUTE EOSINOPHIL COUNT 0 /CUMM (0.0-0.7); ABSOLUTE GRANULOCYTE CT 10.2 /CUMM (1.4-6.5); ABSOLUTE LYMPH COUNT 0.1 /CUMM (1.2-3.4); ABSOLUTE MONOCYTE COUNT 0.2 /CUMM (0.10-0.60); BASOPHIL % 0 % (0.0-2.0); EOSINOPHIL % 0 % (0-5); MEAN CORPUSCULAR HGB 28.1 PG (27.0-31.0); MEAN CORPUSCULAR HGB CONC 32.6 G/DL (33.0-37.0); MEAN CORPUSCULAR VOLUME 86.2 FL (81.0-99.0); MEAN PLATELET VOLUME 7.2 FL (7.4-10.4); PLATELET COUNT 279 /CUMM (130-400); RBC DISTRIBUTION WIDTH 17.2 % (11.5-14.5); RED BLOOD CELL CT 4.07 /CUMM (4.20-5.40); WHITE BLOOD CELL COUNT 10.6 /CUMM (4.8-10.8)
[2016-12-31 09:47] LABS: GRANULOCYTE % 96.8 % (42.2-75.2)
--- NOTE | 2016-12-31 12:37 | PN- Pulmonary ---
Subjective HPI/Critical Care Issues: Stable Did have bad dreams after mirtazapine per pt Objective Current Medications: Current Medications Sig/Kirill Start time Last Medication Dose Route Stop Time Status Admin Albuterol Sulfate 3 ML BID 12/29 1000 AC 12/31 INH 1134 Apixaban 2.5 MG BID 12/28 2243 AC 12/31 PO 0937 Budesonide/ 2 PUF BID 12/29 1000 AC 12/31 Formoterol Fumarate INH 0937 Ceftriaxone Sodium 1,000 MG DAILY 12/29 1000 AC 12/31 IV 0943 Diltiazem HCl 90 MG DAILY 12/29 1000 AC 12/31 PO 0937 Dronedarone 400 MG BID 12/28 2243 AC 12/31 PO 0937 Guaifenesin 600 MG Q12 12/29 2200 AC 12/29 PO 2113 Methylprednisolone 40 MG Q12 12/28 2246 AC 12/31 IV 0936 Mirtazapine 7.5 MG AT BEDTIME 12/30 2200 AC 12/30 PO 2120 Sodium Chloride 2 SPRAY Q4P PRN 12/29 0645 AC 12/29 MERLE 0832 Tiotropium [place] 1 PUF DAILY 12/29 1000 AC 12/31 INH 0938 Vital Signs & I&O Last 24 Hrs of Vitals and I&O: Vital Signs Date Time Temp Pulse Resp B/P B/P Pulse O2 O2 Flow FiO2 Mean Ox Delivery Rate 12/31 1135 96 Nasal 2.0L Cannula 12/31 0937 72 104/54 12/31 0937 72 104/54 12/31 0800 96 Nasal 2.0L Cannula 12/31 0700 97.9 70 18 100/52 98 Nasal 2.0L Cannula 12/30 2310 94 Nasal 2.0L Cannula 12/30 2220 100/56 12/30 2207 97.7 67 20 96/48 94 Nasal Cannula 12/30 2140 97 Nasal 2.0L Cannula 12/30 2119 68 110/58 12/30 1600 Nasal 2.0L Cannula 12/30 1414 98.2 84 18 114/58 97 Intake & Output 12/31 1600 12/31 0800 06/ 0000 Intake Total 200 400 Output Total Balance 200 400 Intake, Oral 200 400 Impression/Plan Impression/Plan Impression/Plan: Physical Exam General Appearance: Alert, Oriented X3, Cooperative, Mild Distress Skin: No Rashes, No Breakdown HEENT: Atraumatic Neck: Supple Cardiovascular: Normal S1, Normal S2 Lungs: poor air entry, with wheezing Abdomen: Normal Bowel Sounds, Soft, No Tenderness Neurological: Normal Tone, Sensation Intact, Cranial Nerves 3-12 NL Extremities: No Clubbing, No Cyanosis, No Edema Vascular: Normal Pulses, Pulses Symmetrical 76-year-old female with a past medical history of end-stage COPD on 1.5-2 L oxygen, A. fib on Linda [facility], lung cancer status post radiation in September 2015 with a recent admission and discharge on December 22 for COPD exacerbation and pneumonia resents to the ER with complaints of severe difficulty breathing ISSUES ACOPDE improved left upperlobe infiltrate with trace effusion improved with very minor effusion noted History of lung cancer Afib Depression REC cont steroids po prednisone 40 and taper dc iv abx and ceftin po for a total seven day abx Cont other meds Will follow
[2016-12-31] MEDS ORDERED: PREDNISONE10 M2 PO (13:00)
[2016-12-31] MEDS ORDERED: CEFUROXIME500 MG PO (13:00)
[2016-12-31] MEDS ORDERED: MUCINEX600 M1 PO (13:24)
--- NOTE | 2016-12-31 13:54 | Event Note ---
Event Note Event Note: Patient developed visual HALLUCINATIONS after starting mirtazapine first dose. Spoke with psychiatrist content development manager. Recommended to stop mirtazapine and follow up with psychiatrist as an outpatient for depression. Off note patient denied any suicidal or homicidal ideation. Patient agreed with the plan.
[2016-12-31 14:47] VITALS: BP 118/52
--- NOTE | 2016-12-31 14:50 | PN- Att Addend ---
Attending Addendum Attending Brief Note Her breathing is better. But had the "funny reaction" to the psych medication given last night, she felt like "mushrooms were all over her body especially on her chest" and apparently was yelling last evening and will check with psychiatry Tristin stratton change this to a different medication or monitor her with no medication otherwise we'll start disposition plans for the patient to go home with the specialists and myself as an outpatient The chest x-ray last evening showed that the pleural effusion is very small and has decreased in size Laboratory Tests 12/31/16 0702: CBC w Diff NO MAN DIFF REQ, RBC 4.07 L, MCV 86.2, MCH 28.1, RDW 17.2 H, MPV 7.2 L, Gran % 96.8 H, Lymphocytes % 1.0 L, Monocytes % 2.2, Eosinophils % 0, Basophils % 0 L, Absolute Granulocytes 10.2 H, Absolute Lymphocytes 0.1 L, Absolute Monocytes 0.2, Absolute Eosinophils 0, Absolute Basophils 0, PUBS MCHC 32.6 L 12/30/16 0625: Anion Gap 7, Estimated GFR > 60, BUN/Creatinine Ratio 25.7 H, CBC w Diff NO MAN DIFF REQ, RBC 3.85 L, MCV 85.1, MCH 28.4, RDW 16.6 H, MPV 7.2 L, Gran % 97.0 H, Lymphocytes % 1.1 L, Monocytes % 1.9, Eosinophils % 0, Basophils % 0 L, Absolute Granulocytes 14.0 H, Absolute Lymphocytes 0.2 L, Absolute Monocytes 0.3, Absolute Eosinophils 0, Absolute Basophils 0, PUBS MCHC 33.3 Microbiology Date/Time Procedure - Status Source Growth 12/28 2246 Legionella Antigen - CAN URINE ROUT Cancelled: SPECIMEN NOT RECEIVED IN LABORATORY 12/28 2246 Streptococcus pneumoniae Antigen (M - CAN URINE ROUT Cancelled: SPECIMEN NOT RECEIVED IN LABORATORY 12/28 2246 Respiratory Culture - CAN LOWER RESP Cancelled: SPECIMEN NOT RECEIVED IN LABORATORY 12/28 2246 Gram Stain - CAN LOWER RESP Cancelled: SPECIMEN NOT RECEIVED IN LABORATORY Will go home on oral antibiotics and tapering doses of steroids.
--- NOTE | 2016-12-31 18:45 | NUR ---
PATIENT DISCHARGED HOME WITH HOME HEALTH SERVICES. LEFT FLOOR WITH SON VIA WHEELCHAIR. OXYGEN TANK BROUGHT IN BY PATIENT'S SON AND 1.5 LITER OF OXYGEN ADMINISTERED VIA NASAL CANULA. PATIENT DENIES PAIN AND IN NO APPARENT DISTRESS. IV D/C WITHOUT DIFFICULTY.
--- NOTE | 2017-01-01 07:59 | Discharge Summary ---
Visit Information Visit Dates Admission Date: 12/28/16 Discharge Date: 12/31/16 Hospital Course Course Attending Physician: CHI LEY MD Primary Care Physician: CHI LEY MD Allergies: Coded Allergies: levofloxacin (Mild, LEGS FELT TIGHT 12/17/16) amoxicillin (ANAPHYLAXIS 12/17/16) clarithromycin (UNKNOWN - PT DOESNT REMEMBER WAS TOLD BY MD NOT TO TAKE 12/17/16 ) doxycycline (GI UPSET 12/28/16) Discharge Instructions General Discharge Information Code Status: Full Code Medications at Discharge Discharge Medications: Continue taking these medications: Fluticasone/Salmeterol (Advair 250-50 Diskus) 1 EACH BLST.W.DEV 1 Puff Inhale through mouth TWICE DAILY Instructions: Reason to Stop at ADM: [facility] Comments: Last Taken: 12/31/16 Time: 9 AM SYMIBICORT GIVEN SUBSTITUTION Tiotropium [place] (Spiriva) 18 MCG CAP.W.DEV 1 Capsule Inhale through mouth DAILY Instructions: Reason to Stop at ADM: [facility] ORDER Comments: Last Taken: 12/31/16 Time: 0900 Albuterol Sulfate (Albuterol Sulfate) 0.63 MG/3 ML VIAL.NEB 1 Vial Inhale Solution THREE TIMES DAILY Instructions: Reason to Stop at ADM:[facility] ORDERS Comments: Last Taken: 09/05/16 Time: 11 AM Albuterol Sulfate (Proair Respiclick) 90 MCG AER.POW.BA 2 PUFF Inhale through mouth EVERY 4-6 HOURS as needed for COPD Qty = 1 Instructions: Reason to Stop at ADM: [facility] ORDERS Comments: NOT GIVEN WHILE IN HOSPITAL Dronedarone HCl (Multaq) 400 MG TABLET 400 Milligram ORAL TWICE DAILY Qty = 60 Comments: Last Taken: 12/31/16 Time: 0900 Apixaban (Eliquis) 2.5 MG TABLET 1 Tablet ORAL TWICE DAILY Qty = 180 Comments: Last Taken: 12/31/16 Time: 1000 Diltiazem HCl (Diltiazem 12HR ER) 90 MG CAP.ER.12H 1 Capsule ORAL DAILY Comments: Last Taken: 12/31/16 Time: 0900 Start taking the following new medications: Cefuroxime Axetil (Cefuroxime) 500 MG TABLET 1 Tablet ORAL TWICE DAILY Qty = 14 No Refills Prednisone (Prednisone) 10 MG TABLET 1 Tablet ORAL See Instructions Qty = 20 No Refills Instructions: TAKE 4TABLETS FOR 2DAYS TAKE 3TABS FOR 2DAYS TAKE 2TABS FOR 2DAYS TAKE 1TAB FOR 2DAYS Guaifenesin (Mucinex) 600 MG TAB.ER.12H 1 Tablet ORAL TWICE DAILY Qty = 14 No Refills
== END 2016-12-31 18:00 | disposition home health service (06) ==
LOC: ERH 13:40 → ERHI 20:07 → 2NA 20:07 → ENRESERV 21:32 → ENTRNSPT 22:27 → 2NA 22:58 → CMPTRNSPT 12-29 06:58 → 2NA 12-29 16:26 → ENPENDDIS 12-31 14:27 → 2NA 12-31 18:00
PROVIDERS: Emergency Medicine; Internal Medicine; Internal Medicine Infectious Disease; ADMIT Internal Medicine
DX: J44.1 Chronic obstructive pulmonary disease with (acute) exacerbation (principal); J96.01 Acute respiratory failure with hypoxia; I48.91 Unspecified atrial fibrillation; Z79.01 Long term (current) use of anticoagulants; Z99.81 Dependence on supplemental oxygen; Z85.118 Personal history of other malignant neoplasm of bronchus and lung; M81.0 Age-related osteoporosis without current pathological fracture; J90 Pleural effusion, not elsewhere classified; F41.9 Anxiety disorder, unspecified; F32.9 Major depressive disorder, single episode, unspecified; R44.1 Visual hallucinations; T43.025A Adverse effect of tetracyclic antidepressants, initial encounter; R64 Cachexia
CPT/HCPCS: 1263; 1328; 1530; 1748; 36415; 71035; 82436; 87070; 87449; 87450; 93005; 93010; 96374; 96375; 99291; G0378; J0696; J2920; J3490

== ENCOUNTER 2017-01-31 06:58 | Inpatient (IN) | payer OTHER ==
[~2017-01-31] VITALS: Ht 162.6 cm; Wt 43.1 kg
[~2017-01-31 06:58] MED LIST changes: +CEFUROXIME500 MG PO; +FUROSEMIDE20 M1 PO
--- NOTE | 2017-01-31 07:11 | ED CARDIAC/CP/PALPITATIONS ---
History of Present Illness General Chief Complaint: General Adult Stated Complaint: BIBA S/P FALL, SOB Source: patient, old records, EMS Exam Limitations: no limitations Vital Signs & Intake/Output Vital Signs & Intake/Output Vital Signs Date Time Temp Pulse Resp B/P B/P Pulse O2 O2 Flow FiO2 Mean Ox Delivery Rate 01/31 0808 95 Nasal 3.0L Cannula 01/31 0702 98.0 120 24 165/81 91 Nasal 3.0L Cannula Allergies Coded Allergies: levofloxacin (Mild, LEGS FELT TIGHT 12/17/16) amoxicillin (ANAPHYLAXIS 12/17/16) clarithromycin (UNKNOWN - PT DOESNT REMEMBER WAS TOLD BY MD NOT TO TAKE 12/17/16 ) doxycycline (GI UPSET 12/28/16) Reconcile Medications Albuterol Sulfate 0.63 MG/3 ML VIAL.NEB 1 Vial INH/AMOS TID COPD (Reported) Reason to Stop at ADM:[facility] ORDERS Albuterol Sulfate (Proair Respiclick) 90 MCG AER.POW.BA 2 PUFF INH Q4-6 PRN COPD Reason to Stop at ADM: [facility] ORDERS Apixaban (Eliquis) 2.5 MG TABLET 1 TAB PO BID BLOOD THINNER (Reported) Cefuroxime Axetil (Cefuroxime) 500 MG TABLET 1 TAB PO BID PNEUMONIA Diltiazem HCl (Diltiazem 12HR ER) 90 MG CAP.ER.12H 1 CAP PO DAILY HEART ( Reported) Dronedarone HCl (Multaq) 400 MG TABLET 400 MG PO BID Atrial fibrillation Fluticasone/Salmeterol (Advair 250-50 Diskus) 1 EACH BLST.W.DEV 1 PUF INH BID COPD (Reported) Reason to Stop at ADM: [facility] ORDERS Guaifenesin (Mucinex) 600 MG TAB.ER.12H 1 TAB PO BID COUGH Prednisone 10 MG TABLET 1 TAB PO SI COPD TAKE 4TABLETS FOR 2DAYS TAKE 3TABS FOR 2DAYS TAKE 2TABS FOR 2DAYS TAKE 1TAB FOR 2DAYS Tiotropium [place] (Spiriva) 18 MCG CAP.W.DEV 1 CAP INH DAILY COPD (Reported) Reason to Stop at ADM: [facility] ORDER Triage Note: PT BIBA S/P UNWITNESSED FALL. PT STATES SHE WAS GETTING UP TO GET A DRINK OF WATER AND PTS SON FOUND HER ON THE FLOOR. PT DENIES LOC/HEADSTRIKE. PT ARRIVES ALERT AND ORIENTED, C-COLLAR IN PLACE, PT RECIEVED DUONEB AND 125MG SOLUMEDROL BY EMS. PT HAS HX OF COPD, COMPLAINED OF SLIGHT SOB ON EMS ARRIVAL. Triage Nurses Notes Reviewed? yes HPI: Patient woke up to go to drink water. She then decided to go to the bathroom. Patient slipped from her bed and the next thing she knew she was sitting on the ground a few steps with her bed. Patient does not remember falling. Patient does not think she hit her head since she was in a sitting position. Patient denies any chest pain or palpitations. 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 Patient has been compliant with her medications including her Eliquis. Past History Travel History Traveled to [place] past 21 day No Medical History Any Pertinent Medical History? 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 MOTHER FH: breast cancer Hx Contributory? No Review of Systems Review of Systems Constitutional: Reports: no symptoms. EENTM: Reports: no symptoms. Respiratory: Reports: no symptoms. Cardiovascular: Reports: no symptoms. GI: Reports: no symptoms. Genitourinary: Reports: no symptoms. Musculoskeletal: Reports: no symptoms. Skin: Reports: no symptoms. Neurological/Psychological: Reports: no symptoms. Hematologic/Endocrine: Reports: no symptoms. Immunologic/Allergic: Reports: no symptoms. All Other Systems: Reviewed and Negative Physical Exam Physical Exam General Appearance: well developed/nourished, alert, awake, mild distress Head: atraumatic, normal appearance Eyes: Bilateral: PERRL, EOMI. Ears, Nose, Throat: normal pharynx, normal ENT inspection, hearing grossly normal Neck: normal inspection, supple, full range of motion Respiratory: decreased breath sounds, wheezing (EXP) Cardiovascular: normal peripheral pulses, tachycardia Gastrointestinal: normal bowel sounds, soft, non-tender, no organomegaly Back: normal inspection, normal range of motion Extremities: normal inspection, normal capillary refill, normal range of motion, no edema Neurologic/Psych: no motor/sensory deficits, awake, alert, oriented x 3, normal mood/affect Skin: intact, normal color, warm/dry Lymphatic: no anterior cervical maru Core Measures ACS in differential dx? Yes ASA ordered for poss ACS? Yes-ordered Severe Sepsis Present: No Septic Shock Present: No Progress Differential Diagnosis: AMI, atrial fibrillation, pneumonia, pneumothorax, pulmonary embolism, respiratory failure Plan of Care: Orders Procedure Date/time Status Heart Healthy Diet 01/31 L Active Telemetry/Repulping Supervisor 01/31 710 Active TROPONIN LEVEL 01/31 710 Complete COMPREHENSIVE METABOLIC PANEL 01/31 710 Complete CBC WITHOUT DIFFERENTIAL 01/31 710 Active EKG 01/[address] HEAD WO IV CONTRAST 01/[address] CERV SPINE WO IV CONTRAST 01/31 710 Active Laboratory Tests 01/31/17 0724: Anion Gap 11, Estimated GFR > 60, BUN/Creatinine Ratio 20.0, Glucose 110 H, Calcium 9.0, Total Bilirubin 1.2, AST 28, ALT 44, Alkaline Phosphatase 95, Troponin I 0.34 *H, Total Protein 6.1 L, Albumin 3.8, Globulin 2.3, Albumin/ Globulin Ratio 1.7, CBC w Diff MAN DIFF ORDERED, RBC 4.87, MCV 86.4, MCH 28.5, RDW 18.5 H, MPV 6.8 L, Gran % 91.3 H, Lymphocytes % 3.3 L, Monocytes % 5.4, Eosinophils % 0, Basophils % 0 L, Absolute Granulocytes 17.8 H, Segmented Neutrophils Pending, Absolute Lymphocytes 0.6 L, Absolute Monocytes 1.1 H, Absolute Eosinophils 0, Absolute Basophils 0, PUBS MCHC 33.0 Initial ED EKG: S TACH WITH PAC'S, P WAVES ARE CONSISTENT, NO EVIDENCE OF MAT, NSSTT CHANGES. Prior EKG: unchanged Rhythm Strip: sinus tachycardia Comments: D/W DR. TUTTLE, TELE ADMISSION, SERIAL ENZYMJES, SHE IS ALREADY ON ELIQUIS SO DOES NOT NEED HEPARIN, RATE CONTROL. Departure Departure Disposition: STILL A PATIENT Condition: Guarded Clinical Impression Primary Impression: ACS (acute coronary syndrome) Secondary Impressions: Syncope Qualifiers: Syncope type: unspecified Qualified Code: R55 - Syncope and collapse Referrals: CHI LEY MD (PCP/Family) Departure Forms: Customer Survey General Discharge Information Admission Note Spoke With: CHI LEY MD Documentation of Exam: Documentation of any treatments & extenuating circumstances including Concerns Regarding Discharge (functional status, medication knowledge or non-compliance, living conditions, etc.) that warrant an admission rather than observation: [ Telemetry admission, serial enzymes, cardiology consultation, if her troponin continues to rise she may require cardiac catheterization.] Critical Care Note Critical Care Note Critical Care Time: mins: (45 MIN)
[2017-01-31 07:57] LABS: ABSOLUTE BASOPHIL COUNT 0 /CUMM (0.0-0.2); ABSOLUTE EOSINOPHIL COUNT 0 /CUMM (0.0-0.7); ABSOLUTE GRANULOCYTE CT 17.8 /CUMM (1.4-6.5); ABSOLUTE LYMPH COUNT 0.6 /CUMM (1.2-3.4); ABSOLUTE MONOCYTE COUNT 1.1 /CUMM (0.10-0.60); BASOPHIL % 0 % (0.0-2.0); EOSINOPHIL % 0 % (0-5); GRANULOCYTE % 91.3 % (42.2-75.2); MEAN CORPUSCULAR HGB 28.5 PG (27.0-31.0); MEAN CORPUSCULAR VOLUME 86.4 FL (81.0-99.0); MEAN PLATELET VOLUME 6.8 FL (7.4-10.4); PLATELET COUNT 390 /CUMM (130-400); RBC DISTRIBUTION WIDTH 18.5 % (11.5-14.5); RED BLOOD CELL CT 4.87 /CUMM (4.20-5.40); WHITE BLOOD CELL COUNT 19.5 /CUMM (4.8-10.8)
--- NOTE | 2017-01-31 08:48 | CT SCAN REPORT ---
Indication: Head injury EXAMINATION: Noncontrast CT brain. Noncontrast CT cervical spine. CT brain FINDINGS: No midline shift. No mass effect. There is no hemorrhage. Basal cisterns are patent. Posterior fossa risk grossly within normal limits. Note is made of ectatic left carotid in the subareolar region. A believe this is also the appearance on imaging from PET scan of 06/01/2015. Vascular calcifications are noted. Cervical spine CT. FINDINGS: Axial imaging with coronal and sagittal reformatted images. FINDINGS: Degenerative changes. No evidence for an acute fracture or dislocation. Cannot exclude spinal stenosis. IMPRESSION: Negative acute noncontrast CT of the brain. No acute fracture or dislocation cervical spine. Note is made of ectatic left carotid and proximal middle cerebral artery in the suprasellar region.
--- NOTE | 2017-01-31 09:41 | History & Physical ---
General Information and HPI MD Statement: I have seen and personally examined YISEL JAUREGUI and documented this H&P. The patient is a 76 year old F who presented with a patient stated chief complaint of [UNWITNESSED FALL]. Source of Information: patient, old records Exam Limitations: no limitations History of Present Illness: 76-year-old female with a past medical history of COPD on 1.5 L of oxygen at home, atrial fibrillation on Eliquis, left lung cancer status post radiation in September 2015, anxiety, depression, osteoporosis presents to the ED status post unwitnessed fall. According to the patient she's been having trouble with allergies and getting short of breath with a past week now. She states that she finished a short course of prednisone this past Sunday. Last night when she got up to drink water, the room was dark, and she may have gotten up fast from the bed. She states that she does remember but the next thing she realized she was on the floor. She denies hitting her head cannot endorse whether or not she lost her consciousness. She denies any history of tongue biting, anuria fecal incontinence. Of note she lives with her son and yelled for help however he couldn't and so she was on the floor for a couple of hours. She also endorses breathing heavily, denies any chest pain, palpitations, prodromal symptoms like nausea, vomiting or lightheaded prior to fall. She does endorse feeling dry. Review of systems otherwise respiratory much unremarkable. Allergies/Medications Allergies: Coded Allergies: levofloxacin (Mild, LEGS FELT TIGHT 12/17/16) amoxicillin (ANAPHYLAXIS 12/17/16) clarithromycin (UNKNOWN - PT DOESNT REMEMBER WAS TOLD BY MD NOT TO TAKE 12/17/16 ) doxycycline (GI UPSET 12/28/16) Home Med list Albuterol Sulfate 0.63 MG/3 ML VIAL.NEB 1 Vial INH/AMOS TID COPD (Reported) Reason to Stop at ADM:[facility] ORDERS Albuterol Sulfate (Proair Respiclick) 90 MCG AER.POW.BA 2 PUFF INH Q4-6 PRN COPD Reason to Stop at ADM: [facility] ORDERS Apixaban (Eliquis) 2.5 MG TABLET 1 TAB PO BID BLOOD THINNER (Reported) Diltiazem HCl (Diltiazem 12HR ER) 90 MG CAP.ER.12H 1 CAP PO DAILY HEART ( Reported) Fluticasone/Salmeterol (Advair 250-50 Diskus) 1 EACH BLST.W.DEV 1 PUF INH BID COPD (Reported) Reason to Stop at ADM: [facility] ORDERS Furosemide (Lasix) 20 MG TABLET 0.5 TAB PO DAILY FLUID OVERLOAD (Reported) Tiotropium [place] (Spiriva) 18 MCG CAP.W.DEV 1 CAP INH DAILY COPD (Reported) Reason to Stop at ADM: 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 MOTHER FH: breast cancer Psychosocial History Who Do You Live With? child Services at Home: Nursing, Oxygen Primary Language: Bahamian ETOH Use: denies use Illicit Drug Use: denies illicit drug use Living Will? yes Functional Ability ADLs Independent: dressing, eating, toileting, bathing. Ambulation: independent IADLs Independent: finances, telephone, medication admin. Needs Assist: shopping, housework, food prep, transportation. Review of Systems Review of Systems Constitutional: Denies: chills, fever, weakness. EENTM: Denies: blurred vision. Cardiovascular: Denies: chest pain, orthopena, palpitations, peripheral edema, syncope. Respiratory: Reports: short of breath. Denies: cough, hemoptysis, wheezing. GI: Denies: abdominal pain, constipation, diarrhea, nausea, vomiting. Genitourinary: Denies: dysuria, frequency, pain, urgency. Musculoskeletal: Reports: no symptoms. Neurological/Psychological: Denies: headache, numbness, tingling, tremors. Exam & Diagnostic Data Last 24 Hrs of Vital Signs/I&O Vital Signs Date Time Temp Pulse Resp B/P B/P Pulse O2 O2 Flow FiO2 Mean Ox Delivery Rate 01/31 0851 97 113/66 01/31 0834 111 20 144/73 01/31 0832 114 20 14473 94 Room Air 01/31 0808 95 Nasal 3.0L Cannula 01/31 0702 98.0 120 24 165/81 91 Nasal 3.0L Cannula Intake & Output 01/31 1600 01/31 0800 07 0000 Intake Total Output Total Balance Patient 125 lb Weight Weight Estimated Measurement Method Physical Exam General Appearance Alert, Oriented X3, Cooperative, Mild Distress, cachectic and frail looking HEENT Atraumatic, PERRLA, EOMI, dry mucous membranes Neck Supple, No JVD, No thryomegaly, +2 Carotid Pulse wo Bruit, No LAD Cardiovascular Normal S1, Normal S2, No Murmurs Lungs decreased breath sounds bilaterally Abdomen Normal Bowel Sounds, Soft, No Tenderness, No Hepatospenomegaly, No Masses Neurological Normal Speech, Strength at 5/5 X4 Ext, Normal Tone, Sensation Intact, Cranial Nerves 3-12 NL, Reflexes 2+ Extremities No Clubbing, No Cyanosis, No Edema, Normal Pulses, No Tenderness/ Swelling Last 24 Hrs of Labs/Mannie: Laboratory Tests 01/31/17 0724: Anion Gap 11, Estimated GFR > 60, BUN/Creatinine Ratio 20.0, Glucose 110 H, Calcium 9.0, Total Bilirubin 1.2, AST 28, ALT 44, Alkaline Phosphatase 95, Troponin I 0.34 *H, Total Protein 6.1 L, Albumin 3.8, Globulin 2.3, Albumin/ Globulin Ratio 1.7, CBC w Diff MAN DIFF ORDERED, RBC 4.87, MCV 86.4, MCH 28.5, RDW 18.5 H, MPV 6.8 L, Gran % 91.3 H, Lymphocytes % 3.3 L, Monocytes % 5.4, Eosinophils % 0, Basophils % 0 L, Absolute Granulocytes 17.8 H, Segmented Neutrophils 83 H, Band Neutrophils 7 H, Absolute Lymphocytes 0.6 L, Lymphocytes 5 L, Monocytes 5, Absolute Monocytes 1.1 H, Absolute Eosinophils 0 , Absolute Basophils 0, Platelet Estimate VERIFIED BY SMEARV, Polychromasia 1+, Poikilocytosis 1+, Anisocytosis 1+, Ovalocytes 1+, PUBS MCHC 33.0 Diagnostic Data EKG Results Sinus tachycardia with a heart rate of 120, normal axis, no ST-T changes and right bundle branch is unchanged CXR Results FINDINGS: Severe pulmonary emphysema. Chronic peribronchial thickening at the left hilum, volume loss of the left lung and small left pleural effusion. Correlate for history of radiation therapy to the region of the left hilum. No acute pulmonary consolidation. Cardiac silhouette is normal in size. Mild atherosclerotic calcification of the aortic arch. No acute skeletal findings. Old T7 vertebral compression fracture is noted. IMPRESSION: 1. Severe pulmonary emphysema. 2. Chronic peribronchial thickening at the left hilum with architectural distortion and volume loss, likely secondary to remote radiation therapy to the chest. 3. No evidence of acute pneumonia. 3. Persistent small left pleural effusion. Other Results SERVICE DATE: 01/31/17 EXAM TYPE: CAT - CT CERV SPINE WO IV CONTRAST; CT HEAD WO IV CONTRAST EXAMINATION: Noncontrast CT brain. Noncontrast CT cervical spine. CT brain FINDINGS: No midline shift. No mass effect. There is no hemorrhage. Basal cisterns are patent. Posterior fossa risk grossly within normal limits. Note is made of ectatic left carotid in the subareolar region. A believe this is also the appearance on imaging from PET scan of 06/01/2015. Vascular calcifications are noted. Cervical spine CT. FINDINGS: Axial imaging with coronal and sagittal reformatted images. FINDINGS: Degenerative changes. No evidence for an acute fracture or dislocation. Cannot exclude spinal stenosis. IMPRESSION: Negative acute noncontrast CT of the brain. No acute fracture or dislocation cervical spine. Note is made of ectatic left carotid and proximal middle cerebral artery in the suprasellar region. Assessment/Plan Assessment: 76-year-old female with a past medical history of COPD on 1.5-2 L of oxygen at home, atrial fibrillation on Eliquis, left lung cancer status post radiation in September 2015, anxiety, depression, osteoporosis presents to the ED status post unwitnessed fall. Vitals at the time of admission blood pressure 165/81, respiratory rate of 24, tachycardic to 120, afebrile saturating 91% on 3 L of oxygen via nasal cannula. On physical exam she is a cachectic looking elderly female, was alert and oriented 3 and in mild respiratory distress sitting in bed. HEENT revealed PERRLA, EOMI, dry mucous membranes. Examination of the neck revealed an elevated JVD. Her last exam revealed normal S1, S2, no murmurs appreciated. Auscultation of the chest revealed bilaterally decreased breath sounds. Abdominal exam was benign with abdomen soft, nontender, nondistended normal bowel sounds in all 4 quadrants. Neurological exam was grossly unremarkable. Examination of the liver extends reveal any edema. Labs were pertinent for leukocytosis with a white blood cell count 19,500, H&H of 13.9/42.0, normal platelet count of 390,000. Serum chemistries revealed a sodium of 137, potassium of 3.6, bicarbonate of 27, anion gap of 11, BUN 12 with a creatinine of 0.6. Serum glucose elevated to 110. LFTs unremarkable with an AST/ALT of 28/44, alkaline phosphatase of 95% first set of troponin positive at 0.34. Head and cervical spine CT was done which was in no acute fracture dislocation of the cervical spine, ectatic left carotid and proximal middle cerebral artery in the suprasellar region with was negative for any intracranial bleed. EKG revealed sinus tachycardia with a heart rate of 120, normal axis, no ST-T changes with a right bundle branch block that is unchanged. Last echo was done in August 2016 which showed normal global left ventricular size, no obvious trauma regional wall motion abnormalities with a left ventricular ejection fraction more than 65%. 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 In the ER she received 10 mg of IV diltiazem 1 and administered aspirin 325 mg orally 1. Assessment and plan Admit patient to telemetry given her elevated troponins. #Syncopal episode Most likely secondary to dehydration versus cardiac arrhythmia versus NH Check orthostatic vitals Hydrate with IV fluids at 75 MLS per hour for 1 packed Continue to monitor in telemetry to monitor for any cardiac arrhythmias Rule out ACS Maintain on fall precautions Check serum prolactin to rule out for any underlying seizure #Elevated troponins with no EKG changes Most likely secondary to type II demand ischemia secondary to tachycardia versus NSTEMI Trend troponins and EKG at 1 PM and 7 PM. Echocardiogram to rule out any regional wall motion abnormalities Start her on aspirin 81 mg daily and atorvastatin 80 mg daily. Patient is already on diltiazem and has a history of end-stage COPD so will avoid beta blockers. #Sinus tachycardia - Most likely secondary to dehydration - Check TSH and free T4 for hyperthyroidism #COPD Continue on supplemental oxygen TRC nebs Continue Symbicort and sclerae were # Hx of Atrial fibrillation Continue on Cardizem 90 mg daily and Eliquis 2.5 mg twice a day by mouth -Diet A heart healthy DVT prophylaxis On Eliquis 2.5 mg by mouth twice a day CODE STATUS Full code As Ranked By This Provider Problem List: 1. ACS (acute coronary syndrome) 2. COPD exacerbation Core Measures/Miscellaneous Acute Coronary Syndrome ACS Diagnosis: Yes Date of most recent Echo 01/31/17 Last Known EF % 65 ASA W/I 24hr of admit Yes Beta-Lauren W/I 24hrs No No Beta-Lauren d/t Bronchospasm LDL assessed W/I 24 hrs Yes Currently on Statin No Cerebrovascular Accident CVA/TIA Diagnosis: No Congestive Heart Failure CHF Diagnosis: No VTE (View Protocol) VTE Risk Factors: Age > 40 [facility] d/t: No contraindications No VTE Pharm Prophylaxis d/t: No contraindications VTE Diagnosis: No VTE Type: NONE VTE Confirmed by (Test): NONE Sepsis (View Protocol) Severe Sepsis Present: No Septic Shock Septic Shock Present: No Miscellaneous Documentation Attending Case Discussed With: CHI LEY MD Primary Care Physician: CHI LEY MD Patient sees these Specialists Dr. Ismael Plunkett Level of Patient Care: Telemetry Consults Needed: Consulting Specialty: Cardiology Resident Review Statement Resident Statement: admitted by resident
--- NOTE | 2017-01-31 10:00 | Cons- Cardiology ---
General Information and HPI Consulting Request Date of Consult: 01/31/17 Requested By: CHI LEY MD Reason for Consult: Syncope and positive troponin. Source of Information: patient, old records Exam Limitations: no limitations History of Present Illness: Ms. Aldana is a 76-year-old female with severe underlying oxygen dependent COPD and a left upper lobe lung cancer, which has been treated with radiation. I saw her previously in June 2015 when she was here for an exacerbation of COPD, and she had a presyncopal episode, which I thought was vasovagal. Subsequently she has had a couple of admissions for exacerbation of COPD, and a course of radiation for left upper lobe cancer. She was most recently admitted on 2016 for exacerbation of COPD. The next day in the afternoon she was noted to be tachycardic and an EKG documented rapid atrial fibrillation. She was given 1 dose of adenosine, which did not convert her but did slow the ventricular response transiently. She was then started on Cardizem drip and her rate slowed somewhat. She was then started on anticoagulation. An echocardiogram showed normal left ventricular systolic function, normal left atrial size, with an atrial septal aneurysm, normal mitral and aortic valves, right ventricular systolic pressure mildly elevated at 35-40 mmHg. Subsequently she was in and out of atrial fibrillation, was placed on Multaq 400 mg twice a day. When she was discharged, however, she was back in atrial fibrillation at a relatively controlled rate on Eliquis 5 mg twice daily, Cardizem 90 mg twice daily and Multaq 400 mg twice daily, as well as her Advair, Spiriva, and other pulmonary regimen. At the time of her post-hospital visit in August, she was pretty stable and in sinus rhythm on EKG. She was complaining of some epistaxis and considering her age and low body weight I decreased her Eliquis to 2.5 mg BID. Subsequently she was seen again in September and was doing okay from a cardiac standpoint. However, after that she was again hospitalized twice. The first time was in late November, I last saw her in the office just 12/17 to 12/22, again for exacerbation of COPD. I did see her on that admission because she had another brief episode of atrial fibrillation, but spontaneously went back to sinus rhythm. She was still on Multaq, Eliquis, and diltiazem. She was readmitted in early December, again for exacerbation of COPD. She did not apparently have any arrhythmias on that admission, on 12/31. I saw her in the office on 01/08/2017. At that time I discontinued her Multaq because she was having side effects of poor appetite and just generally not feeling well. She was in sinus rhythm in the office. Today the patient got up to go to the bathroom in the middle of the night and apparently had a syncopal episode. She found herself on the floor and wasn't aware how she got there. She does not recall any details except that she was at one point standing and at the next point sitting on the floor. She does not know how long she was on the floor. She did not have any chest pain. She has chronic shortness of breath due to severe COPD. She was recently started on a short course of steroids for worsening shortness of breath. In the emergency department she was noted to have elevated troponin of 0.34. She was in sinus rhythm on EKG. Allergies/Medications Allergies: Coded Allergies: levofloxacin (Mild, LEGS FELT TIGHT 12/17/16) amoxicillin (ANAPHYLAXIS 12/17/16) clarithromycin (UNKNOWN - PT DOESNT REMEMBER WAS TOLD BY MD NOT TO TAKE 12/17/16 ) doxycycline (GI UPSET 12/28/16) Home Med List: Albuterol Sulfate 0.63 MG/3 ML VIAL.NEB 1 Vial INH/AMOS TID COPD (Reported) Reason to Stop at ADM:[facility] ORDERS Albuterol Sulfate (Proair Respiclick) 90 MCG AER.POW.BA 2 PUFF INH Q4-6 PRN COPD Reason to Stop at ADM: [facility] NEB ORDERS Apixaban (Eliquis) 2.5 MG TABLET 1 TAB PO BID BLOOD THINNER (Reported) Aspirin (Aspirin*) 81 MG TAB.CHEW 81 MG PO DAILY heart Atorvastatin Calcium 80 MG TABLET 80 MG PO 1700 CHOLESTROL Diltiazem HCl (Diltiazem 12HR ER) 90 MG CAP.ER.12H 1 CAP PO DAILY HEART ( Reported) Fluticasone/Salmeterol (Advair 250-50 Diskus) 1 EACH BLST.W.DEV 1 PUF INH BID COPD (Reported) Reason to Stop at ADM: [facility] NEB ORDERS Furosemide (Lasix) 20 MG TABLET 0.5 TAB PO DAILY FLUID OVERLOAD (Reported) Tiotropium [place] (Spiriva) 18 MCG CAP.W.DEV 1 CAP INH DAILY COPD (Reported) Reason to Stop at ADM: [facility] NEB ORDER Current Medications: Current Medications Sig/Kirill Start time Last Medication Dose Route Stop Time Status Admin Acetaminophen 650 MG Q4P PRN 01/31 1030 AC PO Albuterol Sulfate 2 PUF Q4 01/31 1400 AC INH Apixaban 2.5 MG BID 01/31 2200 CAN PO Aspirin 81 MG DAILY 02/01 1000 AC PO Aspirin 0 .STK-MED ONE 01/31 0832 DC PO Aspirin 325 MG ONCE ONE 01/31 0830 DC 01/31 PO 01/31 0831 0832 Budesonide/ 2 PUF BID 01/31 1024 AC Formoterol Fumarate INH Diltiazem HCl 90 MG DAILY 01/31 1024 AC PO Diltiazem HCl 0 .STK-MED ONE 01/31 0835 DC .ROUTE Diltiazem HCl 10 MG ONCE ONE 01/31 0830 DC 01/31 IV PUSH 01/31 0831 0834 Morphine Sulfate 2 MG Q6P PRN 01/31 1030 AC IV Oxycodone HCl 5 MG Q6 PRN 01/31 1030 AC PO Sodium Chloride 1,000 ML Q13H 01/31 1030 AC IV 01/31 2329 Tiotropium [place] 1 PUF DAILY 01/31 1024 AC INH Review of Systems Review of Systems: She has no other complaints in the review of systems Past History Travel History Traveled to [place] past 21 day No Medical History Neurological: NONE EENT: allergies, POST NASAL DRIP Cardiovascular: AFIB Respiratory: COPD, emphysema, pneumonia, 1.5-2L NC DEP @ HOME Gastrointestinal: NONE Hepatic: NONE Renal: NONE Musculoskeletal: osteoporosis Psychiatric: anxiety, depression Endocrine: NONE Blood Disorders: NONE Cancer(s): LEFT LUNG CANCER S/P RADIATION SEPTEMBER 2015 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 MOTHER FH: breast cancer Psychosocial History Who Do You Live With? child Services at Home: Nursing, Oxygen Primary Language: [place] ETOH Use: denies use Illicit Drug Use: denies illicit drug use Living Will? yes Functional Ability ADLs Independent: dressing, eating, toileting, bathing. Ambulation: independent IADLs Independent: finances, telephone, medication admin. Needs Assist: shopping, housework, food prep, transportation. Exam & Diagnostic Data Vital Signs and I&O Vital Signs Date Time Temp Pulse Resp B/P B/P Pulse O2 O2 Flow FiO2 Mean Ox Delivery Rate 02/01 0851 97 113/66 01/31 0834 111 20 144/73 01/31 0832 114 20 144/73 94 Room Air 01/31 0808 95 Nasal 3.0L Cannula 01/31 0702 98.0 120 24 165/81 91 Nasal 3.0L Cannula Intake & Output 01/31 0801/31 0000 01/30 1600 01/30 0800 01/30 0000 Intake Total Output Total Balance Patient 125 lb Weight Weight Estimated Measurement Method Physical Exam: Elderly-appearing female mildly dyspneic but in no distress HEENT exam normal Neck veins not distended Carotids normal Chest markedly decreased breath sounds, no wheezing Cardiac regular rhythm no murmurs abdomen benign Extremities 1-2+ edema of the ankles and feet Labs/Mannie Results: Laboratory Tests 02/01 724 Chemistry Sodium (137 - 145 mmol/L) 137 Potassium (3.5 - 5.1 mmol/L) 3.6 Chloride (98 - 107 mmol/L) 98 Carbon Dioxide (22 - 30 mmol/L) 27 Anion Gap (5 - 16) 11 BUN (7 - 17 mg/dL) 12 Creatinine (0.5 - 1.0 mg/dL) 0.6 Estimated GFR (>60 ml/min) > 60 BUN/Creatinine Ratio (7 - 25 %) 20.0 Glucose (65 - 99 mg/dL) 110 H Calcium (8.4 - 10.2 mg/dL) 9.0 Total Bilirubin (0.2 - 1.3 mg/dL) 1.2 AST (14 - 36 U/L) 28 ALT (9 - 52 U/L) 44 Alkaline Phosphatase (<127 U/L) 95 Troponin I (< 0.11 ng/ml) 0.34 *H Total Protein (6.3 - 8.2 g/dL) 6.1 L Albumin (3.5 - 5.0 g/dL) 3.8 Globulin (1.9 - 4.2 gm/dL) 2.3 Albumin/Globulin Ratio (1.1 - 2.2 %) 1.7 Coagulation PT Pending INR Pending Hematology CBC w Diff MAN DIFF ORDERED WBC (4.8 - 10.8 /CUMM) 19.5 H RBC (4.20 - 5.40 /CUMM) 4.87 Hgb (12.0 - 16.0 G/DL) 13.9 Hct (37 - 47 %) 42.0 MCV (81.0 - 99.0 FL) 86.4 MCH (27.0 - 31.0 PG) 28.5 RDW (11.5 - 14.5 %) 18.5 H Plt Count (130 - 400 /CUMM) 390 MPV (7.4 - 10.4 FL) 6.8 L Gran % (42.2 - 75.2 %) 91.3 H Lymphocytes % (20.5 - 51.1 %) 3.3 L Monocytes % (1.7 - 9.3 %) 5.4 Eosinophils % (0 - 5 %) 0 Basophils % (0.0 - 2.0 %) 0 L Absolute Granulocytes (1.4 - 6.5 /CUMM) 17.8 H Segmented Neutrophils (42.2 - 75.2 %) 83 H Band Neutrophils (0.0 - 5.0 %) 7 H Absolute Lymphocytes (1.2 - 3.4 /CUMM) 0.6 L Lymphocytes (20.5 - 51.1 %) 5 L Monocytes (1.7 - 9.3 %) 5 Absolute Monocytes (0.10 - 0.60 /CUMM) 1.1 H Absolute Eosinophils (0.0 - 0.7 /CUMM) 0 Absolute Basophils (0.0 - 0.2 /CUMM) 0 Platelet Estimate (ADEQUATE) VERIFIED BY SMEARV Polychromasia 1+ Poikilocytosis 1+ Anisocytosis 1+ Ovalocytes 1+ PUBS MCHC (33.0 - 37.0 G/DL) 33.0 Diagnostic Data EKG Results Her EKG shows sinus rhythm with multiple PACs, high voltage. CXR Results No results Assessment/Plan Assessment/Plan This patient had a probable syncopal episode although the history is unclear. She also has a positive troponin, although she did not report any chest pain. She has not previously had myocardial infarction or manifestations of ischemic disease, and all her previous troponins have been negative when she has been in the hospital. Her last echocardiogram did not show any wall motion abnormalities. I recommend telemetry monitoring and trending her EKGs and troponins. I suspect the troponin rise is from demand ischemia and not myocardial infarction. A repeat echocardiogram has been ordered to look for wall motion abnormalities. I would continue her on her usual home medications including Eliquis, which has been given for her paroxysmal atrial fibrillation.. Consult Acknowledgment - Thank you for your consult request.
[2017-01-31 10:04] LABS: PT 11.8 SEC (9.4-12.5)
[2017-01-31] MEDS ORDERED: LASIX20 M1 PO (10:12)
--- NOTE | 2017-01-31 11:50 | RADIOLOGY REPORT ---
EXAMINATION: XR PORTABLE CHEST CLINICAL INFORMATION: Hypoxia. Fall. COMPARISON: CXR from 10/14/2016 and 12/30/2016 TECHNIQUE: Portable frontal view of the chest was obtained. FINDINGS: Severe pulmonary emphysema. Chronic peribronchial thickening at the left hilum, volume loss of the left lung and small left pleural effusion. Correlate for history of radiation therapy to the region of the left hilum. No acute pulmonary consolidation. Cardiac silhouette is normal in size. Mild atherosclerotic calcification of the aortic arch. No acute skeletal findings. Old T7 vertebral compression fracture is noted. IMPRESSION: 1. Severe pulmonary emphysema. 2. Chronic peribronchial thickening at the left hilum with architectural distortion and volume loss, likely secondary to remote radiation therapy to the chest. 3. No evidence of acute pneumonia. 3. Persistent small left pleural effusion.
[2017-01-31 15:15] VITALS: BP 104/60
--- NOTE | 2017-01-31 16:52 | Admission Certification ---
Admission Certification Certification Statement - As attending physician, I certify that at the time of - admission, based on clinical presentation, severity of - symptoms, need for further diagnostic testing and - therapeutic interventions, and risk of adverse outcomes - without in-hospital treatment, in my clinical assessment, - this patient requires an acute hospital stay for a minimum - of two nights or longer. I have also considered psychsocial - factors such as support system, advanced age, financial - issues, cognitive issues, and failed out-patient treatments, - past re-admission history, safety of patient, and lack of - compliance as applicable. Specific rationale supporting this admission is: Syncopal episode, and elevated troponin
--- NOTE | 2017-01-31 16:55 | PN- Att Addend ---
Attending Addendum Attending Brief Note 76-year-old white female with history of severe COPD on oxygen history of lung cancer, has history of syncopal episodes thought to be vasovagal previous history of atrial fibrillation and follows with spanish professor Edil Plunkett MD. Last night[1, she remembers getting up to go to the bathroom and then she finds herself on the floor with a sore but cannot remember how she got there. She denied any chest pains. Her breathing is usually short of breath. From the floor until the morning was brought to the ER in the ER she was in normal sinus rhythm was evaluated and was found that her troponin was slightly elevated patient was admitted for observation seen by Dr. Plunkett Laboratory Tests 01/31 01/31 1410 0724 Chemistry Sodium (137 - 145 mmol/L) 137 Potassium (3.5 - 5.1 mmol/L) 3.6 Chloride (98 - 107 mmol/L) 98 Carbon Dioxide (22 - 30 mmol/L) 27 Anion Gap (5 - 16) 11 BUN (7 - 17 mg/dL) 12 Creatinine (0.5 - 1.0 mg/dL) 0.6 Estimated GFR (>60 ml/min) > 60 BUN/Creatinine Ratio (7 - 25 %) 20.0 Glucose (65 - 99 mg/dL) 110 H Calcium (8.4 - 10.2 mg/dL) 9.0 Total Bilirubin (0.2 - 1.3 mg/dL) 1.2 AST (14 - 36 U/L) 28 ALT (9 - 52 U/L) 44 Alkaline Phosphatase (<127 U/L) 95 Creatine Kinase (30 - 135 U/L) 42 Troponin I (< 0.11 ng/ml) 0.62 *H 0.34 *H Total Protein (6.3 - 8.2 g/dL) 6.1 L Albumin (3.5 - 5.0 g/dL) 3.8 Globulin (1.9 - 4.2 gm/dL) 2.3 Albumin/Globulin Ratio (1.1 - 2.2 %) 1.7 TSH (0.270 - 4.200 uIU/mL) 3.240 Free T4 (0.78 - 2.44 ng/dL) 1.82 Prolactin (3.0 - 18.6 ng/mL) 26.2 H Coagulation PT (9.4 - 12.5 SEC) 11.8 INR (0.90 - 1.19) 1.13 Hematology CBC w Diff MAN DIFF ORDERED WBC (4.8 - 10.8 /CUMM) 19.5 H RBC (4.20 - 5.40 /CUMM) 4.87 Hgb (12.0 - 16.0 G/DL) 13.9 Hct (37 - 47 %) 42.0 MCV (81.0 - 99.0 FL) 86.4 MCH (27.0 - 31.0 PG) 28.5 RDW (11.5 - 14.5 %) 18.5 H Plt Count (130 - 400 /CUMM) 390 MPV (7.4 - 10.4 FL) 6.8 L Gran % (42.2 - 75.2 %) 91.3 H Lymphocytes % (20.5 - 51.1 %) 3.3 L Monocytes % (1.7 - 9.3 %) 5.4 Eosinophils % (0 - 5 %) 0 Basophils % (0.0 - 2.0 %) 0 L Absolute Granulocytes (1.4 - 6.5 /CUMM) 17.8 H Segmented Neutrophils (42.2 - 75.2 %) 83 H Band Neutrophils (0.0 - 5.0 %) 7 H Absolute Lymphocytes (1.2 - 3.4 /CUMM) 0.6 L Lymphocytes (20.5 - 51.1 %) 5 L Monocytes (1.7 - 9.3 %) 5 Absolute Monocytes (0.10 - 0.60 /CUMM) 1.1 H Absolute Eosinophils (0.0 - 0.7 /CUMM) 0 Absolute Basophils (0.0 - 0.2 /CUMM) 0 Platelet Estimate (ADEQUATE) VERIFIED BY SMEARV Polychromasia 1+ Poikilocytosis 1+ Anisocytosis 1+ Ovalocytes 1+ PUBS MCHC (33.0 - 37.0 G/DL) 33.0
[2017-01-31 18:00] VITALS: BP 102/58
[2017-01-31 21:46] VITALS: BP 92/58
[2017-02-01 06:45] VITALS: BP 128/72
--- NOTE | 2017-02-01 07:30 | PN- Housestaff ---
See Addendum Subjective Follow-up For: - NSTEMI - End satge COPD - Atrial fibrillation on [employer] Tele-Events Since Last Visit: Sinus rythm HR: 77-83, no overnight events Subjective: Patient seen and examined at bedside. She sates tahts he wasnt able to sleep well last night as she was coughing. Denies any other complaints. Review of Systems Constitutional: Denies: chills, fever. Cardiovascular: Denies: chest pain, palpitations, syncope. Respiratory: Reports: cough, short of breath. Denies: hemoptysis, orthopnea. Gastrointestinal: Denies: abdominal pain, constipation, diarrhea, nausea, vomiting. Genitourinary: Reports: no symptoms. Musculoskeletal: Reports: no symptoms. Neurological/Psychological: Denies: headache, numbness, tingling, tremors. Objective Last 24 Hrs of Vital Signs/I&O Vital Signs Date Time Temp Pulse Resp B/P B/P Pulse O2 O2 Flow FiO2 Mean Ox Delivery Rate 02/01 0645 98.1 89 18 128/72 92 Nasal Cannula 02/01 0248 Nasal 2.0L Cannula 02/01 0000 Nasal 1.5L Cannula 01/31 2146 98.1 85 14 92/58 92 Nasal 2.0L Cannula 01/31 1856 Nasal 2.0L Cannula 01/31 1800 98 102/58 / 1600 93 Nasal 3.0L Cannula 01/31 1515 97.8 100 18 104/60 92 Nasal Cannula 01/31 1344 99 113/66 07/05 1041 96.0 103 20 113/66 93 Nasal 3.0L Cannula 01/31 1030 Nasal 3.0L Cannula 01/31 0851 97 113/66 07/05 0834 111 20 144/73 07/ 0832 114 20 144/73 94 Room Air 01/31 0808 95 Nasal 3.0L Cannula Intake & Output 02/01 0800 07/06 0000 0705 1600 Intake Total 700 Output Total 500 800 Balance 200 -800 Intake, IV 600 Intake, Oral 100 Output, Urine 500 800 Patient 94 lb 15.99 oz Weight Weight Estimated Measurement Method Physical Exam General Appearance: Alert, Oriented X3, Cooperative, cachectic HEENT: Atraumatic, PERRLA, EOMI, Mucous Membr. moist/pink Neck: Supple, No JVD, No thryomegaly, +2 Carotid Pulse wo Bruit, No LAD Cardiovascular: Normal S1, Normal S2, No Murmurs Lungs: Clear to Auscultation, Normal Air Movement Abdomen: Normal Bowel Sounds, Soft, No Tenderness Neurological: Normal Speech, Strength at 5/5 X4 Ext, Normal Tone, Sensation Intact, Cranial Nerves 3-12 NL, Reflexes 2+ Extremities: No Clubbing, No Cyanosis, No Edema, Normal Pulses, No Tenderness/ Swelling Current Medications: Current Medications Sig/Kirill Start time Last Medication Dose Route Stop Time Status Admin Acetaminophen 650 MG Q4P PRN 01/31 1030 AC PO Albuterol Sulfate 3 ML Q4P PRN 01/31 1715 AC 02/01 INH 0246 Albuterol Sulfate 2 PUF Q4-PRN PRN 01/31 1715 AC INH Albuterol Sulfate 2 PUF Q4 01/31 1400 DC INH Apixaban 2.5 MG BID 01/31 2200 CAN PO Apixaban 2.5 MG BID 01/31 2200 AC 01/31 PO 2057 Aspirin 81 MG DAILY 02/01 1000 AC PO Aspirin 0 .STK-MED ONE 01/31 0832 DC PO Aspirin 325 MG ONCE ONE 01/31 0830 DC 07/ PO 07/ 0831 0832 Atorvastatin Calcium 80 MG 1700 01/31 1700 AC 01/31 PO 1725 Budesonide/ 2 PUF BID 01/31 1024 AC 07 Formoterol Fumarate INH 2058 Diltiazem HCl 90 MG DAILY 01/31 1024 AC 07 PO 1344 Diltiazem HCl 0 .STK-MED ONE 01/31 0835 DC .ROUTE Diltiazem HCl 10 MG ONCE ONE 01/31 0830 DC 01/31 IV PUSH 01/31 0831 0834 Fluticasone 2 SPRAY DAILY 01/31 1350 AC 07/05 Propionate MERLE 1724 Morphine Sulfate 2 MG Q6P PRN 01/31 1030 AC IV Oxycodone HCl 5 MG Q6 PRN 01/31 1030 AC PO Sodium Chloride 1,000 ML Q13H 01/31 1030 DC 07/ IV 07/05 2329 1345 Tiotropium [place] 1 PUF DAILY / 1024 AC 07 INH 1725 Last 24 Hrs of Lab/Mannie Results Last 24 Hrs of Labs/Mics: Laboratory Tests 02/01/17 0627: Sodium Pending, Potassium Pending, Chloride Pending, Carbon Dioxide Pending, Anion Gap Pending, BUN Pending, Creatinine Pending, BUN/Creatinine Ratio Pending , Troponin I Pending, Triglycerides Pending, Cholesterol Pending, LDL Cholesterol, Calc Pending, HDL Cholesterol Pending, Cholesterol/HDL Ratio Pending, CBC w Diff Pending, WBC Pending, RBC Pending, Hgb Pending, Hct Pending, MCV Pending, MCH Pending, RDW Pending, Plt Count Pending, MPV Pending, PUBS MCHC Pending 02/01/17 0100: Troponin I 0.80 *H 01/31/17 1920: Troponin I 0.81 *H 01/31/17 1410: Troponin I 0.62 *H Assessment/Plan Assessment: 76-year-old female with a past medical history of COPD on 1.5-2 L of oxygen at home, atrial fibrillation on Eliquis, left lung cancer status post radiation in September 2015, anxiety, depression, osteoporosis presents to the ED status post unwitnessed fall. Vitals at the time of admission blood pressure 165/81, respiratory rate of 24, tachycardic to 120, afebrile saturating 91% on 3 L of oxygen via nasal cannula. On physical exam she is a cachectic looking elderly female, was alert and oriented 3 and in mild respiratory distress sitting in bed. HEENT revealed PERRLA, EOMI, dry mucous membranes. Examination of the neck revealed an elevated JVD. Her last exam revealed normal S1, S2, no murmurs appreciated. Auscultation of the chest revealed bilaterally decreased breath sounds. Abdominal exam was benign with abdomen soft, nontender, nondistended normal bowel sounds in all 4 quadrants. Neurological exam was grossly unremarkable. Examination of the liver extends reveal any edema. Labs were pertinent for leukocytosis with a white blood cell count 19,500, H&H of 13.9/42.0, normal platelet count of 390,000. Serum chemistries revealed a sodium of 137, potassium of 3.6, bicarbonate of 27, anion gap of 11, BUN 12 with a creatinine of 0.6. Serum glucose elevated to 110. LFTs unremarkable with an AST/ALT of 28/44, alkaline phosphatase of 95% first set of troponin positive at 0.34. Head and cervical spine CT was done which was in no acute fracture dislocation of the cervical spine, ectatic left carotid and proximal middle cerebral artery in the suprasellar region with was negative for any intracranial bleed. EKG revealed sinus tachycardia with a heart rate of 120, normal axis, no ST-T changes with a right bundle branch block that is unchanged. Last echo was done in August 2016 which showed normal global left ventricular size, no obvious trauma regional wall motion abnormalities with a left ventricular ejection fraction more than 65%. 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 In the ER she received 10 mg of IV diltiazem 1 and administered aspirin 325 mg orally 1. Assessment and plan Admit patient to telemetry given her elevated troponins. #Syncopal episode Most likely secondary to dehydration versus NSTEMI Her orthostats were negative. She was hydrated with IV fluids at 75 MLS per hour for 1 bag No events were observed on telemetry Serum prolactin was obtained which ruled out underlying seizure. #Elevated troponins with no EKG changes Msot likely secondary to type II NH from demand ischemia secondary to tachycardia versus NSTEMI. Continue aspirin 81 mg daily and atorvastatin 80 mg daily. Her troponins trended up from 0.34 to 0.68 to 0.81 to 0.80. Echocardiogram pending Patient is already on diltiazem and has a history of end-stage COPD so will avoid beta blockers. #Sinus tachycardia - Resolved -Her TSH and free T4 were WNL. #COPD Continue on supplemental oxygen TRC nebs Continue Symbicort and Symbicort Will start her on Robitussin for cough # Hx of Atrial fibrillation She was continued on Cardizem 90 mg daily and Eliquis 2.5 mg twice a day by mouth -Diet Heart healthy DVT prophylaxis On Eliquis 2.5 mg by mouth twice a day CODE STATUS Full code Problem List: 1. ACS (acute coronary syndrome) 2. COPD exacerbation Pain Ratin Pain Location: n/a Pain Goal: Remain pain free Pain Plan: tylenol Tomorrow's Labs & Rationales: CBC and BEP - for WBC and Cr Consulting Request: Consulting Specialty: Cardiology
[2017-02-01 07:55] LABS: ABSOLUTE BASOPHIL COUNT 0 /CUMM (0.0-0.2); ABSOLUTE EOSINOPHIL COUNT 0 /CUMM (0.0-0.7); ABSOLUTE GRANULOCYTE CT 17.2 /CUMM (1.4-6.5); ABSOLUTE LYMPH COUNT 0.2 /CUMM (1.2-3.4); ABSOLUTE MONOCYTE COUNT 0.9 /CUMM (0.10-0.60); BASOPHIL % 0 % (0.0-2.0); EOSINOPHIL % 0 % (0-5); GRANULOCYTE % 93.9 % (42.2-75.2); HEMATOCRIT 37.2 % (37-47); MEAN CORPUSCULAR HGB 28.6 PG (27.0-31.0); MEAN CORPUSCULAR HGB CONC 33.2 G/DL (33.0-37.0); MEAN CORPUSCULAR VOLUME 86.1 FL (81.0-99.0); MEAN PLATELET VOLUME 7.1 FL (7.4-10.4); PLATELET COUNT 342 /CUMM (130-400); RBC DISTRIBUTION WIDTH 18.8 % (11.5-14.5); RED BLOOD CELL CT 4.32 /CUMM (4.20-5.40)
[2017-02-01 08:45] LABS: WHITE BLOOD CELL COUNT 18.3 /CUMM (4.8-10.8)
[2017-02-01] MEDS ORDERED: ATORVASTATIN CA80 M1 PO (10:49)
[2017-02-01] MEDS ORDERED: LASIX20 M1 PO (10:49)
[2017-02-01] MEDS ORDERED: ASPIRIN81 M4 PO (10:59)
--- NOTE | 2017-02-01 12:08 | PN- Att Addend ---
Attending Addendum Attending Brief Note Patient states she had a lot of coughing last night and early this morning or after some Robitussin. No chest pain her breathing is about the same. Her vital signs are stable no fever and no major changes on physical with no major changes on telemetry. Her troponins where: 0,74 0.80 0.81 0.62 White count on admission was 19,500 today's 18,300 continue observation total respiratory care and follow braider setter's recommendations probably due to all the comorbidities will continue with conservative treatment 24 TOTALS 02/01 0000 01/31 0000 Intake Total Output Total 800 Balance -800 Output, Urine 800 Patient 94 lb 15.99 oz Weight Weight Estimated Measurement Method Current Medications Sig/Kirill Start time Last Medication Dose Route Stop Time Status Admin Acetaminophen 650 MG Q4P PRN 01/31 1030 AC PO Albuterol Sulfate 3 ML Q4P PRN 01/31 1715 AC 02/01 INH 0246 Albuterol Sulfate 2 PUF Q4-PRN PRN 01/31 1715 AC INH Albuterol Sulfate 2 PUF Q4 01/31 1400 DC INH Apixaban 2.5 MG BID 01/31 2200 AC 02/01 PO 1001 Aspirin 81 MG DAILY 02/01 1000 AC 02/01 PO 1001 Atorvastatin Calcium 80 MG 1700 01/31 1700 AC 01/31 PO 1725 Budesonide/ 2 PUF BID 01/31 1024 AC 02/01 Formoterol Fumarate INH 1001 Diltiazem HCl 90 MG DAILY 01/31 1024 AC 02/01 PO 1001 Fluticasone 2 SPRAY DAILY 01/31 1350 AC 02/01 Propionate MERLE 0959 Guaifenesin/ 10 ML Q6P PRN 02/01 0745 AC 02/01 Dextromethorphan PO 0823 Morphine Sulfate 2 MG Q6P PRN 01/31 1030 AC IV Oxycodone HCl 5 MG Q6 PRN 01/31 1030 AC PO Sodium Chloride 1,000 ML Q13H 01/31 1030 DC 07/ IV 01/31 2329 1345 Tiotropium [place] 1 PUF DAILY 01/31 1024 AC 02/01 INH 1000 Laboratory Tests 02/01/17 0627: Anion Gap 8, Estimated GFR > 60, BUN/Creatinine Ratio 23.3, Troponin I 0.74 *H, Triglycerides 51, Cholesterol 171, LDL Cholesterol, Calc 61 L, HDL Cholesterol 100 H, Cholesterol/HDL Ratio 2, CBC w Diff NO MAN DIFF REQ, RBC 4.32, MCV 86.1, MCH 28.6, RDW 18.8 H, MPV 7.1 L, Gran % 93.9 H, Lymphocytes % 1.4 L, Monocytes % 4.7, Eosinophils % 0, Basophils % 0 L, Absolute Granulocytes 17.2 H, Absolute Lymphocytes 0.2 L, Absolute Monocytes 0.9 H, Absolute Eosinophils 0, Absolute Basophils 0, PUBS MCHC 33.2 02/01/17 0100: Troponin I 0.80 *H 01/31/17 1920: Troponin I 0.81 *H 01/31/17 1410: Troponin I 0.62 *H 01/31/17 0724: Anion Gap 11, Estimated GFR > 60, BUN/Creatinine Ratio 20.0, Glucose 110 H, Calcium 9.0, Total Bilirubin 1.2, AST 28, ALT 44, Alkaline Phosphatase 95, Creatine Kinase 42, Troponin I 0.34 *H, Total Protein 6.1 L, Albumin 3.8, Globulin 2.3, Albumin/Globulin Ratio 1.7, TSH 3.240, Free T4 1.82, Prolactin 26.2 H, PT 11.8, INR 1.13, CBC w Diff MAN DIFF ORDERED, RBC 4.87, MCV 86.4, MCH 28.5, RDW 18.5 H, MPV 6.8 L, Gran % 91.3 H, Lymphocytes % 3.3 L, Monocytes % 5.4, Eosinophils % 0, Basophils % 0 L, Absolute Granulocytes 17.8 H, Segmented Neutrophils 83 H, Band Neutrophils 7 H, Absolute Lymphocytes 0.6 L, Lymphocytes 5 L, Monocytes 5, Absolute Monocytes 1.1 H, Absolute Eosinophils 0 , Absolute Basophils 0, Platelet Estimate VERIFIED BY SMEARV, Polychromasia 1+, Poikilocytosis 1+, Anisocytosis 1+, Ovalocytes 1+, PUBS MCHC 33.0
--- NOTE | 2017-02-01 13:13 | PN- Cardiology ---
Subjective Subjective: The patient is complaining of cough. She has no chest pain. She has remained in sinus rhythm. Her EKG has shown only some minor T-wave changes. Her cardiac enzymes peaked at 0.83 and have been declining. Her echocardiogram is still pending. Objective Vital Signs and I&Os Vital Signs Date Time Temp Pulse Resp B/P B/P Pulse O2 O2 Flow FiO2 Mean Ox Delivery Rate 02/01 1250 96 Nasal 2.0L Cannula 02/01 1001 98.1 89 18 128/72 / 0800 94 Nasal 1.5L Cannula 02/01 0645 98.1 89 18 128/72 92 Nasal Cannula 02/01 0248 Nasal 2.0L Cannula 02/01 0000 Nasal 1.5L Cannula 01/31 2146 98.1 85 14 92/58 92 Nasal 2.0L Cannula 01/31 1856 Nasal 2.0L Cannula 01/31 1800 98 102/58 / 1600 93 Nasal 3.0L Cannula 01/31 1515 97.8 100 18 104/60 92 Nasal Cannula 01/31 1344 99 113/66 Intake & Output 02/01 1600 07/ 0800 07/06 0000 07/05 1600 01/31 0800 / 0000 Intake Total 700 Output Total 500 800 Balance 200 -800 Intake, IV 600 Intake, Oral 100 Output, Urine 500 800 Patient 94 lb 15.99 oz 125 lb Weight Weight Estimated Estimated Measurement Method Physical Exam: She is mild to moderately dyspneic at rest HEENT exam normal Chest decreased breath sounds, some rhonchi and very mild wheezing Heart regular rhythm no murmurs Extremities mild edema Current Medications: Current Medications Sig/Kirill Start time Last Medication Dose Route Stop Time Status Admin Acetaminophen 650 MG Q4P PRN 01/31 1030 AC PO Albuterol Sulfate 3 ML Q4P PRN / 1715 AC 02/01 INH 1249 Albuterol Sulfate 2 PUF Q4-PRN PRN 01/31 1715 AC INH Albuterol Sulfate 2 PUF Q4 01/31 1400 DC INH Apixaban 2.5 MG BID 01/31 2200 AC / PO 1001 Aspirin 81 MG DAILY 02/01 1000 AC 02/01 PO 1001 Atorvastatin Calcium 80 MG 1700 07/ 1700 AC 07/ PO 1725 Budesonide/ 2 PUF BID 01/31 1024 AC 02/01 Formoterol Fumarate INH 1001 Diltiazem HCl 90 MG DAILY 01/31 1024 AC 02/01 PO 1001 Fluticasone 2 SPRAY DAILY 01/31 1350 AC 02/01 Propionate MERLE 0959 Guaifenesin/ 10 ML Q6P PRN 02/01 0745 AC 02/01 Dextromethorphan PO 0823 Morphine Sulfate 2 MG Q6P PRN 01/31 1030 AC IV Oxycodone HCl 5 MG Q6 PRN 01/31 1030 AC PO Sodium Chloride 1,000 ML Q13H 01/31 1030 DC 01/31 IV 01/31 2329 1345 Tiotropium [place] 1 PUF DAILY 01/31 1024 AC 02/01 INH 1000 Results Last 48 Hrs of Labs/Mics: Laboratory Tests 02/01/17 06: Anion Gap 8, Estimated GFR > 60, BUN/Creatinine Ratio 23.3, Troponin I 0.74 *H, Triglycerides 51, Cholesterol 171, LDL Cholesterol, Calc 61 L, HDL Cholesterol 100 H, Cholesterol/HDL Ratio 2, CBC w Diff NO MAN DIFF REQ, RBC 4.32, MCV 86.1, MCH 28.6, RDW 18.8 H, MPV 7.1 L, Gran % 93.9 H, Lymphocytes % 1.4 L, Monocytes % 4.7, Eosinophils % 0, Basophils % 0 L, Absolute Granulocytes 17.2 H, Absolute Lymphocytes 0.2 L, Absolute Monocytes 0.9 H, Absolute Eosinophils 0, Absolute Basophils 0, PUBS MCHC 33.2 02/01/17 0100: Troponin I 0.80 *H 01/31/17 1920: Troponin I 0.81 *H 01/31/17 1410: Troponin I 0.62 *H 01/31/17 0724: Anion Gap 11, Estimated GFR > 60, BUN/Creatinine Ratio 20.0, Glucose 110 H, Calcium 9.0, Total Bilirubin 1.2, AST 28, ALT 44, Alkaline Phosphatase 95, Creatine Kinase 42, Troponin I 0.34 *H, Total Protein 6.1 L, Albumin 3.8, Globulin 2.3, Albumin/Globulin Ratio 1.7, TSH 3.240, Free T4 1.82, Prolactin 26.2 H, PT 11.8, INR 1.13, CBC w Diff MAN DIFF ORDERED, RBC 4.87, MCV 86.4, MCH 28.5, RDW 18.5 H, MPV 6.8 L, Gran % 91.3 H, Lymphocytes % 3.3 L, Monocytes % 5.4, Eosinophils % 0, Basophils % 0 L, Absolute Granulocytes 17.8 H, Segmented Neutrophils 83 H, Band Neutrophils 7 H, Absolute Lymphocytes 0.6 L, Lymphocytes 5 L, Monocytes 5, Absolute Monocytes 1.1 H, Absolute Eosinophils 0 , Absolute Basophils 0, Platelet Estimate VERIFIED BY SMEARV, Polychromasia 1+, Poikilocytosis 1+, Anisocytosis 1+, Ovalocytes 1+, PUBS MCHC 33.0 Assessment/Plan Assessment/Plan The patient has had a small non-ST elevation myocardial infarction. Fortunately she is not in congestive heart failure. She remains in sinus rhythm. Her main complaints are respiratory. There is no obvious explanation for her syncopal episode. I recommend just continued monitoring and respiratory treatments. We will review her echocardiogram when it is done. There are no plans for invasive or interventional cardiac workup based on her overall medical condition and poor respiratory status. Continue telemetry? Yes
[2017-02-01 14:56] VITALS: BP 126/62
--- NOTE | 2017-02-01 16:22 | RADIOLOGY REPORT ---
EXAMINATION: XR PORTABLE CHEST CLINICAL INFORMATION: Pulmonary venous congestion COMPARISON: Multiple prior examinations including a chest x-ray January [address] a chest August 2016 and November 2016.. TECHNIQUE: Portable frontal view of the chest was obtained. FINDINGS: Emphysema with prominent lucency in the lung apices unchanged compared to prior. There is persistent unchanged decreased volume of the left hemithorax. The opacity in the left perihilar region has slightly decreased Calcified nodules in the right mid to lower lung unchanged. Cardiac silhouette within normal limits aorta unremarkable. Pulmonary vasculature are normal. IMPRESSION: Chronic changes with persistent linear perihilar opacity slightly improved. No evidence for pulmonary vascular congestion.
[2017-02-01 22:00] VITALS: BP 118/76
--- NOTE | 2017-02-02 07:24 | PN- Housestaff ---
Subjective Follow-up For: - NSTEMI - End satge COPD on 1.5 L of oxygen at home - Atrial fibrillation on Eliquis - Acute SOB Tele-Events Since Last Visit: NSR; HR: 70-90, no events. Subjective: Patient seen and examined at bedside. She looks comfortable compared to last evening when she was inrespiratory distress. A CXR was done which did not show any pulmonary venous congestion. Last night her SOB worsened, and an ABG was done which was c/w respiratory alkalosis. She was given Solumderol 125mg X1. She was subsequently placed on 5.0 liters of O2. Review of Systems Constitutional: Reports: weakness. Denies: chills, fever. EENTM: Denies: visual changes. Cardiovascular: Denies: chest pain, orthopena, palpitations. Respiratory: Reports: cough, short of breath, sputum production. Denies: wheezing. Objective Last 24 Hrs of Vital Signs/I&O Vital Signs Date Time Temp Pulse Resp B/P B/P Pulse O2 O2 Flow FiO2 Mean Ox Delivery Rate 02/02 0000 Nasal 5.0L Cannula 02/01 2200 99.0 93 24 118/76 92 Nasal 5.0L Cannula 02/01 1720 94 Nasal 2.0L Cannula 02/01 1600 Nasal 2.0L Cannula 02/01 1456 97.7 102 18 126/62 92 Nasal 2.0L Cannula 02/01 1250 96 Nasal 2.0L Cannula 02/01 1001 98.1 89 18 128/72 02/01 0800 94 Nasal 1.5L Cannula Intake & Output 02/02 0800 07 0000 02/01 1600 Intake Total 0 200 480 Output Total 600 350 Balance -600 -150 480 Intake, IV 0 0 Intake, Oral 0 200 480 Number 0 0 Bowel Movements Output, Urine 600 350 Physical Exam General Appearance: Alert, Oriented X3, Mild Distress, cachectic HEENT: Atraumatic, PERRLA, EOMI, Mucous Membr. moist/pink Neck: Supple, No JVD, No thryomegaly, +2 Carotid Pulse wo Bruit, No LAD Cardiovascular: Normal S1, Normal S2, No Murmurs Lungs: decreased breath sounds bilaterally, mild wheezes Abdomen: Normal Bowel Sounds, Soft, No Tenderness, No Hepatospenomegaly, No Masses Neurological: Normal Speech, Strength at 5/5 X4 Ext, Normal Tone, Sensation Intact, Cranial Nerves 3-12 NL, Reflexes 2+ Extremities: No Clubbing, No Cyanosis, No Edema, Normal Pulses, No Tenderness/ Swelling Current Medications: Current Medications Sig/Kirill Start time Last Medication Dose Route Stop Time Status Admin Acetaminophen 650 MG Q4P PRN 07 1030 AC PO Albuterol Sulfate 3 ML Q4P PRN 01/31 1715 AC 02/01 INH 1718 Albuterol Sulfate 2 PUF Q4-PRN PRN 01/31 1715 AC INH Apixaban 2.5 MG BID 01/31 2200 AC 02/01 PO 2211 Aspirin 81 MG DAILY 02/01 1000 AC 02/01 PO 1001 Atorvastatin Calcium 80 MG 1700 01/31 1700 AC 02/01 PO 1828 Budesonide/ 2 PUF BID 01/31 1024 AC 02/01 Formoterol Fumarate INH 2225 Diltiazem HCl 90 MG DAILY 01/31 1024 AC 02/01 PO 1001 Fluticasone 2 SPRAY DAILY 01/31 1350 AC 02/01 Propionate MERLE 0959 Guaifenesin 600 MG Q12 02/01 2200 AC 02/01 PO 2211 Guaifenesin 10 ML .STK-MED ONE 02/01 0800 DC PO 02/01 0801 Guaifenesin/ 10 ML Q6P PRN 02/01 0745 AC 02/01 Dextromethorphan PO 0823 Lorazepam 0.25 MG ONE TIME ONE 02/01 2300 DC 02/01 PO 02/01 2301 2300 Lorazepam 0.25 MG ONE ONE 02/01 1545 DC 02/01 PO 02/01 1546 1554 Methylprednisolone 40 MG Q8 02/02 0720 UNVr IV Methylprednisolone 125 MG ONCE ONE 02/01 2045 DC 02/01 IV 02/01 2046 2046 Morphine Sulfate 2 MG Q6P PRN 01/31 1030 AC IV Oxycodone HCl 5 MG Q6 PRN 01/31 1030 AC PO Sodium Chloride 2 SPRAY Q4P PRN 02/01 1545 AC 02/01 MERLE 1714 Tiotropium [place] 1 PUF DAILY 01/31 1024 AC 02/01 INH 1000 Last 24 Hrs of Lab/Mannie Results Last 24 Hrs of Labs/Mics: Laboratory Tests 02/01/17 2030: pH 7.48 H, pCO2 36, pO2 60 L, HCO3 26, ABG O2 Sat (Measured) 92.0 L, P-50 ( Temp Corrected) YES, Carboxyhemoglobin 1.1 L, O2 Concentration % 4L, Temperature 97.7, O2 Delivery Method NC, Phlebotomy Draw Site RIGHT RADIAL Assessment/Plan Assessment: 76-year-old female with a past medical history of COPD on 1.5-2 L of oxygen at home, atrial fibrillation on Eliquis, left lung cancer status post radiation in September 2015, anxiety, depression, osteoporosis presents to the ED status post unwitnessed fall. Vitals at the time of admission blood pressure 165/81, respiratory rate of 24, tachycardic to 120, afebrile saturating 91% on 3 L of oxygen via nasal cannula. On physical exam she is a cachectic looking elderly female, was alert and oriented 3 and in mild respiratory distress sitting in bed. HEENT revealed PERRLA, EOMI, dry mucous membranes. Examination of the neck revealed an elevated JVD. Her last exam revealed normal S1, S2, no murmurs appreciated. Auscultation of the chest revealed bilaterally decreased breath sounds. Abdominal exam was benign with abdomen soft, nontender, nondistended normal bowel sounds in all 4 quadrants. Neurological exam was grossly unremarkable. Examination of the liver extends reveal any edema. Labs were pertinent for leukocytosis with a white blood cell count 19,500, H&H of 13.9/42.0, normal platelet count of 390,000. Serum chemistries revealed a sodium of 137, potassium of 3.6, bicarbonate of 27, anion gap of 11, BUN 12 with a creatinine of 0.6. Serum glucose elevated to 110. LFTs unremarkable with an AST/ALT of 28/44, alkaline phosphatase of 95% first set of troponin positive at 0.34. Head and cervical spine CT was done which was in no acute fracture dislocation of the cervical spine, ectatic left carotid and proximal middle cerebral artery in the suprasellar region with was negative for any intracranial bleed. EKG revealed sinus tachycardia with a heart rate of 120, normal axis, no ST-T changes with a right bundle branch block that is unchanged. Last echo was done in August 2016 which showed normal global left ventricular size, no obvious trauma regional wall motion abnormalities with a left ventricular ejection fraction more than 65%. 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 In the ER she received 10 mg of IV diltiazem 1 and administered aspirin 325 mg orally 1. Assessment and plan Admit patient to telemetry given her elevated troponins. #Syncopal episode Most likely secondary to dehydration versus NSTEMI Her orthostats were negative. She was hydrated with IV fluids at 75 MLS per hour for 1 bag No events were observed on telemetry Serum prolactin was obtained which ruled out underlying seizure. #Elevated troponins with no EKG changes Msot likely secondary to type II MT from demand ischemia secondary to tachycardia versus NSTEMI. Continue aspirin 81 mg daily and atorvastatin 80 mg daily. Her troponins trended up from 0.34 to 0.68 to 0.81 to 0.80. Echocardiogram pending Patient is already on diltiazem and has a history of end-stage COPD so will avoid beta blockers. #Sinus tachycardia - Resolved -Her TSH and free T4 were WNL. #COPD Continue on supplemental oxygen Start on Solumedrrol 40mg IV Q8 TRC nebs Continue Symbicort and Symbicort Continue Robitussin for cough CXR yesterday showed chronic changes with persistent linear perihilar opacity slightly improved. Pulm consult with Dr. Zepeda. F/U recs # Hx of Atrial fibrillation She was continued on Cardizem 90 mg daily and Eliquis 2.5 mg twice a day by mouth #Decubitus skin ulcer present on admssion - wound nurse to see her placed patient oin calorie count -Diet Heart healthy DVT prophylaxis On Eliquis 2.5 mg by mouth twice a day CODE STATUS Full code Problem List: 1. ACS (acute coronary syndrome) 2. COPD exacerbation Pain Ratin Pain Location: n/a Pain Goal: Remain pain free Pain Plan: tylenol Tomorrow's Labs & Rationales: cbc Consulting Request: Consulting Specialty: Cardiology
[2017-02-02 07:36] VITALS: BP 118/68
--- NOTE | 2017-02-02 09:16 | Cons- Pulmonary ---
General Information and HPI Consulting Request Date of Consult: 02/02/17 Requested By: Dr. Gallagher Reason for Consult: Shortness of breath and hypoxia Source of Information: patient, old records Exam Limitations: no limitations History of Present Illness: The patient is a 77-year-old female with a past medical history significant for severe physically limiting oxygen dependent COPD, on 1.5 L nasal oxygen, atrial fibrillation on Eliquis, and left lung cancer status post radiation in September 2015. She also has a history of anxiety, depression, and osteoporosis. The patient was admitted on 01/31/2017 after experiencing an unwitnessed fall. The patient was evaluated and thought to have a syncopal episode in the setting of a non-ST elevation NE. Patient was evaluated by cardiology and an echocardiogram was performed. She has not been in congestive heart failure. There were no plans for invasive or interventional cardiac workup based on her overall medical conditions and poor respiratory status. She had a CXR on 02/01/17 that demonstrated severe pulmonary emphysema, chronic peribronchial thickening at the left hilum with architectural distortion and volume loss, likely secondary to remote radiation therapy to the chest. There was no evidence of pneumonia and there was a persistent small left pleural effusion. Repeat CXR on 02/01/17 showed no significant change. The patient was on supplemental oxygen at 2 lpm yesterday , however overnight the patient desaturated and she is now requiring oxygen at 5 lpm. She has an ongoing cough with chest congestion. She has chronic dyspnea on exertion which is physically limiting. She denies any fever or chills. She has no chest pain. The patient complains of chronic sinus congestions. She denies any other complaints. Allergies/Medications Allergies: Coded Allergies: levofloxacin (Mild, LEGS FELT TIGHT 12/17/16) amoxicillin (ANAPHYLAXIS 12/17/16) clarithromycin (UNKNOWN - PT DOESNT REMEMBER WAS TOLD BY MD NOT TO TAKE 12/17/16 ) doxycycline (GI UPSET 12/28/16) Home Med List: Albuterol Sulfate 0.63 MG/3 ML VIAL.NEB 1 Vial INH/AMOS TID COPD (Reported) Reason to Stop at ADM:[facility] ORDERS Albuterol Sulfate (Proair Respiclick) 90 MCG AER.POW.BA 2 PUFF INH Q4-6 PRN COPD Reason to Stop at ADM: [facility] NEB ORDERS Apixaban (Eliquis) 2.5 MG TABLET 1 TAB PO BID BLOOD THINNER (Reported) Aspirin (Aspirin*) 81 MG TAB.CHEW 81 MG PO DAILY heart Atorvastatin Calcium 80 MG TABLET 80 MG PO 1700 CHOLESTROL Diltiazem HCl (Diltiazem 12HR ER) 90 MG CAP.ER.12H 1 CAP PO DAILY HEART ( Reported) Fluticasone/Salmeterol (Advair 250-50 Diskus) 1 EACH BLST.W.DEV 1 PUF INH BID COPD (Reported) Reason to Stop at ADM: [facility] NEB ORDERS Furosemide (Lasix) 20 MG TABLET 0.5 TAB PO DAILY FLUID OVERLOAD (Reported) Tiotropium [place] (Spiriva) 18 MCG CAP.W.DEV 1 CAP INH DAILY COPD (Reported) Reason to Stop at ADM: [facility] NEB ORDER Review of Systems Review of Systems Constitutional: Reports: malaise, weakness. Denies: chills, diaphoresis, fever. EENTM: Denies: no symptoms. Cardiovascular: Reports: orthopena. Denies: chest pain, edema, palpitations, peripheral edema, syncope. Respiratory: Reports: cough, orthopnea, short of breath, sputum production, wheezing. Denies : hemoptysis, stridor. GI: Denies: no symptoms. Genitourinary: Denies: no symptoms. 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 MOTHER FH: breast cancer Psychosocial History Who Do You Live With? child Services at Home: Nursing, Oxygen Primary Language: Guinean Smoking Status: Former Smoker ETOH Use: denies use Illicit Drug Use: denies illicit drug use Living Will? yes Functional Ability ADLs Independent: dressing, eating, toileting, bathing. Ambulation: independent IADLs Independent: finances, telephone, medication admin. Needs Assist: shopping, housework, food prep, transportation. Exam & Diagnostic Data Last 24 Hrs of Vital Signs/I&O Vital Signs Date Time Temp Pulse Resp B/P B/P Pulse O2 O2 Flow FiO2 Mean Ox Delivery Rate 02/02 0911 92 Nasal 3.0L Cannula 02/02 0905 103 118/68 02/02 0736 98.2 87 20 118/68 97 Nasal 5.0L Cannula 02/02 0000 Nasal 5.0L Cannula 02/01 2200 99.0 93 24 118/76 92 Nasal 5.0L Cannula 02/01 1720 94 Nasal 2.0L Cannula 02/01 1600 Nasal 2.0L Cannula 02/01 1456 97.7 102 18 126/62 92 Nasal 2.0L Cannula 02/01 1250 96 Nasal 2.0L Cannula 02/01 1001 98.1 89 18 128/72 Intake & Output 02/02 1600 02/02 0800 02/02 0000 Intake Total 0 200 Output Total 600 350 Balance -600 -150 Intake, IV 0 0 Intake, Oral 0 200 Number 0 0 Bowel Movements Output, Urine 600 350 Physical Exam General Appearance: alert, awake, anxious, frail and thin, chronically ill Head: atraumatic, normal appearance Eyes: Bilateral: PERRL. Neck: supple Respiratory: very diminished breath sounds, quiet respirations, uses accessory muscules often but not currently in active distress Cardiovascular: regular rate/rhythm (distant heart sounds) Extremities: no edema Skin: intact, normal color, warm/dry Last 48 Hrs of Labs/Mannie: Laboratory Tests 02/01/17 2030: pH 7.48 H, pCO2 36, pO2 60 L, HCO3 26, ABG O2 Sat (Measured) 92.0 L, P-50 ( Temp Corrected) YES, Carboxyhemoglobin 1.1 L, O2 Concentration % 4L, Temperature 97.7, O2 Delivery Method NC, Phlebotomy Draw Site RIGHT RADIAL 02/01/17 0627: Anion Gap 8, Estimated GFR > 60, BUN/Creatinine Ratio 23.3, Troponin I 0.74 *H, Triglycerides 51, Cholesterol 171, LDL Cholesterol, Calc 61 L, HDL Cholesterol 100 H, Cholesterol/HDL Ratio 2, CBC w Diff NO MAN DIFF REQ, RBC 4.32, MCV 86.1, MCH 28.6, RDW 18.8 H, MPV 7.1 L, Gran % 93.9 H, Lymphocytes % 1.4 L, Monocytes % 4.7, Eosinophils % 0, Basophils % 0 L, Absolute Granulocytes 17.2 H, Absolute Lymphocytes 0.2 L, Absolute Monocytes 0.9 H, Absolute Eosinophils 0, Absolute Basophils 0, PUBS MCHC 33.2 02/01/17 0100: Troponin I 0.80 *H 01/31/17 1920: Troponin I 0.81 *H Diagnostic Data CXR Results Chronic changes with persistent linear perihilar opacity slightly improved. No evidence for pulmonary vascular congestion. Assessment/Plan Impression/Plan: 1. Acute on chronic respiratory failure, secondary to end stage COPD. 2. NSTEMI. 3. S/P syncope/fall. 4. Chronic sinus congestion. Recommendations: * Agree with IV Solumedrol. * TRC for nebulizer treatments. * Please ask respiratory to try the patient on acapella therapy. * Titrate supplemental oxygen down for saturations around 90-92%. * Add Claritin 10 mg daily. * Continue nasal sailine (patient refuses fluticasone nasal spray for decongestion). * Continue Symbicort and Spiriva. * Continue Mucinex for mucociliary clearance. * DVT prophylaxis at all times. * Continue all supportive care. Thank you, will follow along with you and provide further recommendations as necessary. Please call with any questions. Consult Acknowledgment - Thank you for your consult request.
--- NOTE | 2017-02-02 10:21 | PN- Att Addend ---
Attending Addendum Attending Brief Note Last evening became more acute shortness of breath needed IV steroids which made her a little agitated but improved her breathing also but mild sedation and this morning she feels a little better still has some loose cough patient thinks part of it at her allergies she does not like the nasal steroids but states the saline helps also restarted on her Claritin. No chest pain and appreciate pulmonary simple shove up implement and recommendations will have an echocardiogram to assess cardiac function. Continue treatment for COPD with a chest x-ray showed no acute infiltrates Intake & Output 02/02 1600 02/02 0400 02/01 1600 02/01 0400 01/31 1600 01/31 0400 Intake Total 0 200 1180 Output Total 600 350 500 800 Balance -600 -150 680 -800 Intake, IV 0 0 600 Intake, Oral 0 200 580 Number 0 0 Bowel Movements Output, Urine 600 350 500 800 Patient 94 lb 15.99 oz Weight Weight Estimated Measurement Method Current Medications Sig/Kirill Start time Last Medication Dose Route Stop Time Status Admin Acetaminophen 650 MG Q4P PRN 01/31 1030 AC PO Albuterol Sulfate 3 ML Q4P PRN 01/31 1715 AC 02/02 INH 0910 Albuterol Sulfate 2 PUF Q4-PRN PRN 01/31 1715 AC INH Apixaban 2.5 MG BID 01/31 2200 AC 02/02 PO 0905 Aspirin 81 MG DAILY 02/01 1000 AC 02/02 PO 0905 Atorvastatin Calcium 80 MG 1700 01/31 1700 AC 02/01 PO 1828 Budesonide/ 2 PUF BID 01/31 1024 AC 02/02 Formoterol Fumarate INH 0906 Diltiazem HCl 90 MG DAILY 01/31 1024 AC 02/02 PO 0905 Fluticasone 2 SPRAY DAILY 01/31 1350 AC 02/02 Propionate MERLE 0908 Guaifenesin 600 MG Q12 02/01 2200 AC 02/02 PO 0904 Guaifenesin/ 10 ML Q6P PRN 02/01 0745 AC 02/01 Dextromethorphan PO 0823 Lorazepam 0.25 MG ONE TIME ONE 02/01 2300 DC 02/01 PO 02/01 2301 2300 Lorazepam 0.25 MG ONE ONE 02/01 1545 DC 02/01 PO 02/01 1546 1554 Methylprednisolone 40 MG Q8 02/02 0720 AC 07/07 IV 0906 Methylprednisolone 125 MG ONCE ONE 02/01 2045 DC 02/01 IV 02/01 Morphine Sulfate 2 MG Q6P PRN 01/31 103 AC IV Oxycodone HCl 5 MG Q6 PRN 01/31 1030 AC PO Sodium Chloride 2 SPRAY Q4P PRN 02/01 1545 AC 02/01 MERLE 1714 Tiotropium [place] 1 PUF DAILY 01/31 1024 AC 02/02 INH 0907 Laboratory Tests 02/01/17 2030: pH 7.48 H, pCO2 36, pO2 60 L, HCO3 26, ABG O2 Sat (Measured) 92.0 L, P-50 ( Temp Corrected) YES, Carboxyhemoglobin 1.1 L, O2 Concentration % 4L, Temperature 97.7, O2 Delivery Method NC, Phlebotomy Draw Site RIGHT RADIAL 02/01/17626: Anion Gap 8, Estimated GFR > 60, BUN/Creatinine Ratio 23.3, Troponin I 0.74 *H, Triglycerides 51, Cholesterol 171, LDL Cholesterol, Calc 61 L, HDL Cholesterol 100 H, Cholesterol/HDL Ratio 2, CBC w Diff NO MAN DIFF REQ, RBC 4.32, MCV 86.1, MCH 28.6, RDW 18.8 H, MPV 7.1 L, Gran % 93.9 H, Lymphocytes % 1.4 L, Monocytes % 4.7, Eosinophils % 0, Basophils % 0 L, Absolute Granulocytes 17.2 H, Absolute Lymphocytes 0.2 L, Absolute Monocytes 0.9 H, Absolute Eosinophils 0, Absolute Basophils 0, PUBS MCHC 33.2 02/01/17 0100: Troponin I 0.80 *H 01/31/17 1920: Troponin I 0.81 *H 01/31/17 1410: Troponin I 0.62 *H 01/31/17 1027: Urine Color Cancelled, Urine Clarity Cancelled, Urine pH Cancelled, Ur Specific [place] Cancelled, Urine Protein Cancelled, Urine Ketones Cancelled, Urine Nitrite Cancelled, Urine Bilirubin Cancelled, Urine Urobilinogen Cancelled, Ur Leukocyte Esterase Cancelled, Ur Microscopic Cancelled, Urine Hemoglobin Cancelled, Urine Glucose Cancelled 01/31/17 0724: Anion Gap 11, Estimated GFR > 60, BUN/Creatinine Ratio 20.0, Glucose 110 H, Calcium 9.0, Total Bilirubin 1.2, AST 28, ALT 44, Alkaline Phosphatase 95, Creatine Kinase 42, Troponin I 0.34 *H, Total Protein 6.1 L, Albumin 3.8, Globulin 2.3, Albumin/Globulin Ratio 1.7, TSH 3.240, Free T4 1.82, Prolactin 26.2 H, PT 11.8, INR 1.13, CBC w Diff MAN DIFF ORDERED, RBC 4.87, MCV 86.4, MCH 28.5, RDW 18.5 H, MPV 6.8 L, Gran % 91.3 H, Lymphocytes % 3.3 L, Monocytes % 5.4, Eosinophils % 0, Basophils % 0 L, Absolute Granulocytes 17.8 H, Segmented Neutrophils 83 H, Band Neutrophils 7 H, Absolute Lymphocytes 0.6 L, Lymphocytes 5 L, Monocytes 5, Absolute Monocytes 1.1 H, Absolute Eosinophils 0 , Absolute Basophils 0, Platelet Estimate VERIFIED BY SMEARV, Polychromasia 1+, Poikilocytosis 1+, Anisocytosis 1+, Ovalocytes 1+, PUBS MCHC 33.0
--- NOTE | 2017-02-02 11:17 | PN- Cardiology ---
Subjective Subjective: The patient states she had trouble breathing last night and was given steroids. She has had no chest pain. She's had no arrhythmias. She remains in sinus rhythm. There are some PACs noted. Her laboratory work is unremarkable except for elevated white count which may be related to steroids. Troponins have peaked and are decreasing. There are no EKG changes associated with the positive troponins. Objective Vital Signs and I&Os Vital Signs Date Time Temp Pulse Resp B/P B/P Pulse O2 O2 Flow FiO2 Mean Ox Delivery Rate 02/02 0911 92 Nasal 3.0L Cannula 02/02 0905 103 118/68 02/02 0736 98.2 87 20 118/68 97 Nasal 5.0L Cannula 02/02 0000 Nasal 5.0L Cannula 02/01 2200 99.0 93 24 118/76 92 Nasal 5.0L Cannula 02/01 1720 94 Nasal 2.0L Cannula 02/01 1600 Nasal 2.0L Cannula 02/01 1456 97.7 102 18 126/62 92 Nasal 2.0L Cannula 02/01 1250 96 Nasal 2.0L Cannula Intake & Output 02/02 1600 02/02 0800 02/02 0000 02/01 1600 02/01 0800 02/01 0000 Intake Total 0 200 480 700 Output Total 600 350 500 Balance -600 -150 480 200 Intake, IV 0 0 600 Intake, Oral 0 200 480 100 Number 0 0 Bowel Movements Output, Urine 600 350 500 Physical Exam: She is in no distress this morning Chest reveals decreased breath sounds Heart regular rhythm no murmurs Extremities decreasing edema Current Medications: Current Medications Sig/Kirill Start time Last Medication Dose Route Stop Time Status Admin Acetaminophen 650 MG Q4P PRN 01/31 1030 AC PO Albuterol Sulfate 3 ML Q4P PRN 01/31 1715 AC 02/02 INH 0910 Albuterol Sulfate 2 PUF Q4-PRN PRN 01/31 1715 AC INH Apixaban 2.5 MG BID 01/31 2200 AC 02/02 PO 0905 Aspirin 81 MG DAILY 02/01 1000 AC 02/02 PO 0905 Atorvastatin Calcium 80 MG 1700 01/31 1700 AC 02/01 PO 1828 Budesonide/ 2 PUF BID 01/31 1024 AC 02/02 Formoterol Fumarate INH 0906 Diltiazem HCl 90 MG DAILY 01/31 1024 AC 02/02 PO 0905 Fluticasone 2 SPRAY DAILY 01/31 1350 AC 02/02 Propionate MERLE 0908 Guaifenesin 600 MG Q12 02/01 2200 AC 02/02 PO 0904 Guaifenesin/ 10 ML Q6P PRN 02/01 0745 AC 02/01 Dextromethorphan PO 0823 Lorazepam 0.25 MG ONE TIME ONE 02/01 2300 DC 02/01 PO 02/01 2301 2300 Lorazepam 0.25 MG ONE ONE 02/01 1545 DC 02/01 PO 02/01 1546 1554 Methylprednisolone 40 MG Q8 02/02 0720 AC 02/02 IV 0906 Methylprednisolone 125 MG ONCE ONE 02/01 2045 DC 02/01 IV 02/01 Morphine Sulfate 2 MG Q6P PRN 01/31 1030 AC IV Oxycodone HCl 5 MG Q6 PRN 01/31 1030 AC PO Sodium Chloride 2 SPRAY Q4P PRN 02/01 1545 AC 02/01 MERLE 1714 Tiotropium [place] 1 PUF DAILY 01/31 1024 AC 02/02 INH 0907 Results Last 48 Hrs of Labs/Mics: Laboratory Tests 02/01/17 2030: pH 7.48 H, pCO2 36, pO2 60 L, HCO3 26, ABG O2 Sat (Measured) 92.0 L, P-50 ( Temp Corrected) YES, Carboxyhemoglobin 1.1 L, O2 Concentration % 4L, Temperature 97.7, O2 Delivery Method NC, Phlebotomy Draw Site RIGHT RADIAL 02/01/17 0627: Anion Gap 8, Estimated GFR > 60, BUN/Creatinine Ratio 23.3, Troponin I 0.74 *H, Triglycerides 51, Cholesterol 171, LDL Cholesterol, Calc 61 L, HDL Cholesterol 100 H, Cholesterol/HDL Ratio 2, CBC w Diff NO MAN DIFF REQ, RBC 4.32, MCV 86.1, MCH 28.6, RDW 18.8 H, MPV 7.1 L, Gran % 93.9 H, Lymphocytes % 1.4 L, Monocytes % 4.7, Eosinophils % 0, Basophils % 0 L, Absolute Granulocytes 17.2 H, Absolute Lymphocytes 0.2 L, Absolute Monocytes 0.9 H, Absolute Eosinophils 0, Absolute Basophils 0, PUBS MCHC 33.2 02/01/17 0100: Troponin I 0.80 *H 01/31/17 1920: Troponin I 0.81 *H 01/31/17 1410: Troponin I 0.62 *H Recent Imaging Studies: CONCLUSIONS Technically difficult and limited study. Normal left ventricular ejection fraction visually estimated at >65 Abnormal relaxation filling pattern of the left ventricle for age (stage 1 diastolic dysfunction). Normal left atrial size. Mitral valve not well visualized, grossly normal. No mitral regurgitation. Aortic valve not well visualized, grossly normal. No aortic stenosis. Trace to mild tricuspid regurgitation. Right ventricular systolic pressure estimated to be elevated at 50- 55 mmHg. Moderate to severe pulmonary hypertension. Edil Plunkett M.D. (Electronically Signed) Final Date: 02 February 2017 15:43 Assessment/Plan Assessment/Plan The patient has had a small non-ST elevation myocardial infarction. Fortunately she is not in congestive heart failure. She remains in sinus rhythm. Her main complaints are respiratory. There is no obvious explanation for her syncopal episode. It was most likely vasovagal or postural. I recommend just continued monitoring and respiratory treatments. Her echocardiogram is being done and I will review and attach to this note. (Good LV function, moderate to severe pulmonary hypertension) We can continue monitoring because of the risk for atrial fibrillation but hopefully she will remain in sinus rhythm. From a cardiac standpoint she can be discharged when her respiratory status is back to baseline. Continue telemetry? Yes
[2017-02-02 15:03] VITALS: BP 110/56
--- NOTE | 2017-02-02 15:44 | ECHOCARDIOGRAM REPORT ---
YISEL JAUREGUI Age: 77 : 1940 Gender: F Exam Date: 02/02/2017 11:05 Exam Location: [address] Ht (in): 64 Wt (lb): 94 BSA: 1.37 BP: 113 / 66 Ordering Physician: NIEVES MOSES MD Referring Physician: NIEVES MOSES MD Technologist: Perez Garcia [facility] Room Number: 188-1 Indications: Chest Pain Rhythm: Sinus Technical Quality: Technically difficult study FINDINGS Left Ventricle Normal left ventricular size and wall thickness. Normal left ventricular ejection fraction visually estimated at >65 %. Abnormal relaxation filling pattern of the left ventricle for age (stage 1 diastolic dysfunction). Right Ventricle Right ventricle not well visualized, grossly normal. Right Atrium Right atrium not well visualized, grossly normal. Left Atrium Normal left atrial size. Mitral Valve Mitral valve not well visualized, grossly normal. No mitral regurgitation. Aortic Valve Aortic valve not well visualized, grossly normal. No aortic stenosis. No aortic regurgitation. Tricuspid Valve Tricuspid valve is normal in structure and function. Trace to mild tricuspid regurgitation. Right ventricular systolic pressure estimated to be elevated at 50-55 mmHg. Moderate to severe pulmonary hypertension. Pulmonic Valve Pulmonic valve not well visualized, grossly normal. No pulmonic regurgitation. Pericardium No pericardial or pleural effusion. Great Vessels Normal size aortic root. CONCLUSIONS Technically difficult and limited study. Normal left ventricular ejection fraction visually estimated at >65 Abnormal relaxation filling pattern of the left ventricle for age (stage 1 diastolic dysfunction). Normal left atrial size. Mitral valve not well visualized, grossly normal. No mitral regurgitation. Aortic valve not well visualized, grossly normal. No aortic stenosis. Trace to mild tricuspid regurgitation. Right ventricular systolic pressure estimated to be elevated at 50- 55 mmHg. Moderate to severe pulmonary hypertension. Edil Plunkett M.D. (Electronically Signed) Final Date: 02 February 2017 15:43 MEASUREMENTS (Male / Female) Normal Values 2D ECHO LV Diastolic Diameter PLAX 3.3 cm 4.2 - 5.9 / 3.9 - 5.3 cm LV Systolic Diameter PLAX 1.7 cm 2.1 - 4.0 cm LV Fractional Shortening PLAX 48.5 % 25 - 46 % LV Ejection Fraction 2D Teich 81.0 % IVS Diastolic Thickness 0.7 cm LVPW Diastolic Thickness 0.8 cm LV Relative Wall Thickness 0.5 RV Internal Dim ED PLAX 2.4 cm 1.9 - 3.8 cm LVOT Diameter 1.7 cm Aortic Root Diameter 2.5 cm LA Systolic Diameter LX 2.1 cm 3.0 - 4.0 / 2.7 - 3.8 cm Ascending Aorta Diameter 2.7 cm DOPPLER AV Peak Velocity 123.0 cm/s AV Peak Gradient 6.1 mmHg AV Mean Velocity 78.0 cm/s AV Mean Gradient 3.0 mmHg AV Velocity Time Integral 19.1 cm LVOT Peak Velocity 98.5 cm/s LVOT Peak Gradient 3.9 mmHg LVOT Mean Velocity 49.7 cm/s LVOT Mean Gradient 1.0 mmHg LVOT Velocity Time Integral 18.8 cm LVOT Stroke Volume 42.7 cm AV Area Cont Eq vti 2.2 cm AV Area Cont Eq pk 1.8 cm MV Peak Velocity 97.9 cm/s MV Peak Gradient 3.8 mmHg MV Mean Velocity 53.8 cm/s MV Mean Gradient 1.0 mmHg Mitral E Point Velocity 51.3 cm/s Mitral A Point Velocity 69.6 cm/s Mitral E to A Ratio 0.7 MV PHT Velocity 65.2 cm/s MV Deceleration [place] 633.0 cm/s MV Pressure Half Time 30.9 ms MV Area PHT 7.1 cm MV Deceleration Time 310.0 ms TR Peak Velocity 323.0 cm/s TR Peak Gradient 41.7 mmHg Right Atrial Pressure 10.0 mmHg Pulmonary Artery Systolic Pressu 51.7 mmHg Right Ventricular Systolic Press 51.7 mmHg PV Peak Velocity 113.0 cm/s PV Peak Gradient 5.1 mmHg PV Mean Velocity 60.5 cm/s PV Mean Gradient 2.0 mmHg PV Velocity Time Integral 16.1 cm
[2017-02-02 22:21] VITALS: BP 110/56
--- NOTE | 2017-02-03 06:48 | PN- Housestaff ---
Subjective Follow-up For: - NSTEMI - End satge COPD on 1.5 L of oxygen at home - Atrial fibrillation on Eliquis - Acute SOB Complaints: no complaints Tele-Events Since Last Visit: NSR - No overnight events Subjective: Patient seen and examined at bedside. She looks much better and states she slept well last night. Review of Systems Constitutional: Denies: diaphoresis, fever. Cardiovascular: Denies: chest pain, palpitations. Respiratory: Denies: cough, short of breath. Gastrointestinal: Denies: abdominal pain, diarrhea, nausea, vomiting. Genitourinary: Reports: no symptoms. Neurological/Psychological: Denies: headache, numbness, tingling, tremors. Objective Last 24 Hrs of Vital Signs/I&O Vital Signs Date Time Temp Pulse Resp B/P B/P Pulse O2 O2 Flow FiO2 Mean Ox Delivery Rate 02/03 0000 Nasal 3.0L Cannula 02/02 2221 98.0 82 18 110/56 95 Nasal 3.0L Cannula 02/02 1600 Nasal 3.0L Cannula 02/02 1503 97.7 107 20 110/56 94 Nasal Cannula 02/02 0911 92 Nasal 3.0L Cannula 02/02 0905 103 118/68 02/02 0800 Nasal 3.0L Cannula 02/02 0736 98.2 87 20 118/68 97 Nasal 5.0L Cannula Intake & Output 02/03 0800 02/03 0000 02/02 1600 Intake Total 0 100 Output Total 180 200 400 Balance -180 -100 -400 Intake, Oral 0 100 Number 1 Bowel Movements Output, Urine 180 200 400 Patient 94 lb 15.99 oz Weight Physical Exam General Appearance: Alert, Oriented X3, Cooperative, No Acute Distress, cachetic HEENT: Atraumatic, PERRLA, EOMI, Mucous Membr. moist/pink Neck: Supple, No JVD, +2 Carotid Pulse wo Bruit Cardiovascular: Normal S1, Normal S2, No Murmurs Lungs: decreased breath sounds bilaterally, no wheezes Abdomen: Normal Bowel Sounds, Soft, No Tenderness Neurological: Normal Speech, Strength at 5/5 X4 Ext, Normal Tone, Sensation Intact, Cranial Nerves 3-12 NL, Reflexes 2+ Extremities: No Clubbing, No Cyanosis, No Edema, Normal Pulses, No Tenderness/ Swelling Vascular: Normal Pulses, Pulses Symmetrical Current Medications: Current Medications Sig/Kirill Start time Last Medication Dose Route Stop Time Status Admin Acetaminophen 650 MG Q4P PRN 01/31 1030 AC PO Albuterol Sulfate 3 ML Q4P PRN 01/31 1715 AC 02/02 INH 0910 Albuterol Sulfate 2 PUF Q4-PRN PRN 01/31 1715 AC INH Apixaban 2.5 MG BID 01/31 2200 AC 02/02 PO 2206 Aspirin 81 MG DAILY 02/01 1000 AC 02/02 PO 0905 Atorvastatin Calcium 80 MG 1700 01/31 1700 AC 02/02 PO 1638 Budesonide/ 2 PUF BID 01/31 1024 AC 02/02 Formoterol Fumarate INH 2206 Diltiazem HCl 90 MG DAILY 01/31 1024 AC 02/02 PO 0905 Fluticasone 2 SPRAY DAILY 01/31 1350 AC 02/02 Propionate MERLE 0908 Guaifenesin 600 MG Q12 02/01 2200 AC 02/02 PO 2206 Guaifenesin/ 10 ML Q6P PRN 02/01 0745 AC 02/02 Dextromethorphan PO 2036 Lorazepam 0.5 MG ONE ONE 02/02 2130 DC 02/02 PO 02/02 2131 2206 Methylprednisolone 40 MG Q8 02/02 0720 AC 02/03 IV 0555 Morphine Sulfate 2 MG Q6P PRN 01/31 1030 AC IV Oxycodone HCl 5 MG Q6 PRN 01/31 1030 AC PO Sodium Chloride 2 SPRAY Q4P PRN 02/01 1545 AC 02/01 MERLE 1714 Tiotropium [place] 1 PUF DAILY 01/31 1024 AC 02/02 INH 0907 Last 24 Hrs of Lab/Mannie Results Last 24 Hrs of Labs/Mics: Laboratory Tests 02/03/17 0705: Anion Gap 9, Estimated GFR > 60, BUN/Creatinine Ratio 28.6 H, CBC w Diff NO MAN DIFF REQ, RBC 4.36, MCV 87.3, MCH 28.4, RDW 19.0 H, MPV 7.4, Gran % 95.5 H, Lymphocytes % 1.2 L, Monocytes % 3.3, Eosinophils % 0, Basophils % 0 L, Absolute Granulocytes 16.2 H, Absolute Lymphocytes 0.2 L, Absolute Monocytes 0.6, Absolute Eosinophils 0, Absolute Basophils 0, PUBS MCHC 32.5 L Orders ECHO Findings: FINDINGS Left Ventricle Normal left ventricular size and wall thickness. Normal left ventricular ejection fraction visually estimated at >65 %. Abnormal relaxation filling pattern of the left ventricle for age (stage 1 diastolic dysfunction). Right Ventricle Right ventricle not well visualized, grossly normal. Right Atrium Right atrium not well visualized, grossly normal. Left Atrium Normal left atrial size. Mitral Valve Mitral valve not well visualized, grossly normal. No mitral regurgitation. Aortic Valve Aortic valve not well visualized, grossly normal. No aortic stenosis. No aortic regurgitation. Tricuspid Valve Tricuspid valve is normal in structure and function. Trace to mild tricuspid regurgitation. Right ventricular systolic pressure estimated to be elevated at 50-55 mmHg. Moderate to severe pulmonary hypertension. Pulmonic Valve Pulmonic valve not well visualized, grossly normal. No pulmonic regurgitation. Pericardium No pericardial or pleural effusion. Great Vessels Normal size aortic root. CONCLUSIONS Technically difficult and limited study. Normal left ventricular ejection fraction visually estimated at >65 Abnormal relaxation filling pattern of the left ventricle for age (stage 1 diastolic dysfunction). Normal left atrial size. Mitral valve not well visualized, grossly normal. No mitral regurgitation. Aortic valve not well visualized, grossly normal. No aortic stenosis. Trace to mild tricuspid regurgitation. Right ventricular systolic pressure estimated to be elevated at 50- 55 mmHg. Moderate to severe pulmonary hypertension. Edil Plunkett M.D. (Electronically Signed) Final Date: 02 February 2017 15:43 Radiology Findings: SERVICE DATE: 02/01/17- EXAM TYPE: RAD - XRY-PORTABLE CHEST XRAY FINDINGS: Emphysema with prominent lucency in the lung apices unchanged compared to prior. There is persistent unchanged decreased volume of the left hemithorax. The opacity in the left perihilar region has slightly decreased Calcified nodules in the right mid to lower lung unchanged. Cardiac silhouette within normal limits aorta unremarkable. Pulmonary vasculature are normal. IMPRESSION: Chronic changes with persistent linear perihilar opacity slightly improved. No evidence for pulmonary vascular congestion. Assessment/Plan Assessment: 76-year-old female with a past medical history of COPD on 1.5-2 L of oxygen at home, atrial fibrillation on Eliquis, left lung cancer status post radiation in September 2015, anxiety, depression, osteoporosis presents to the ED status post unwitnessed fall. Vitals at the time of admission blood pressure 165/81, respiratory rate of 24, tachycardic to 120, afebrile saturating 91% on 3 L of oxygen via nasal cannula. On physical exam she is a cachectic looking elderly female, was alert and oriented 3 and in mild respiratory distress sitting in bed. HEENT revealed PERRLA, EOMI, dry mucous membranes. Examination of the neck revealed an elevated JVD. Her last exam revealed normal S1, S2, no murmurs appreciated. Auscultation of the chest revealed bilaterally decreased breath sounds. Abdominal exam was benign with abdomen soft, nontender, nondistended normal bowel sounds in all 4 quadrants. Neurological exam was grossly unremarkable. Examination of the liver extends reveal any edema. Labs were pertinent for leukocytosis with a white blood cell count 19,500, H&H of 13.9/42.0, normal platelet count of 390,000. Serum chemistries revealed a sodium of 137, potassium of 3.6, bicarbonate of 27, anion gap of 11, BUN 12 with a creatinine of 0.6. Serum glucose elevated to 110. LFTs unremarkable with an AST/ALT of 28/44, alkaline phosphatase of 95% first set of troponin positive at 0.34. Head and cervical spine CT was done which was in no acute fracture dislocation of the cervical spine, ectatic left carotid and proximal middle cerebral artery in the suprasellar region with was negative for any intracranial bleed. EKG revealed sinus tachycardia with a heart rate of 120, normal axis, no ST-T changes with a right bundle branch block that is unchanged. Last echo was done in August 2016 which showed normal global left ventricular size, no obvious trauma regional wall motion abnormalities with a left ventricular ejection fraction more than 65%. 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 In the ER she received 10 mg of IV diltiazem 1 and administered aspirin 325 mg orally 1. Assessment and plan #Syncopal episode Most likely secondary to dehydration versus NSTEMI Her orthostats were negative. She was hydrated with IV fluids at 75 MLS per hour for 1 bag No events were observed on telemetry Serum prolactin was obtained which ruled out underlying seizure. #Elevated troponins with no EKG changes Msot likely secondary to type II NH from demand ischemia secondary to tachycardia versus NSTEMI. Continue aspirin 81 mg daily and atorvastatin 80 mg daily. Her troponins trended up from 0.34 to 0.68 to 0.81 to 0.80. Echocardiogram revealed stage I diastolic dysfunction Patient is already on diltiazem and has a history of end-stage COPD so will avoid beta blockers. #Sinus tachycardia - Resolved -Her TSH and free T4 were WNL. #COPD Continue on supplemental oxygen Taper to Solumedrrol 40mg IV Q12 TRC nebs Continue Symbicort and Symbicort Continue Robitussin for cough CXR showed chronic changes with persistent linear perihilar opacity slightly improved. Pulm consult with Dr. Zepeda. F/U recs # Hx of Atrial fibrillation She was continued on Cardizem 90 mg daily and Eliquis 2.5 mg twice a day by mouth #Decubitus skin ulcer Present on admssion - Wound nurse to see her Placed patient oin calorie count -Diet Heart healthy DVT prophylaxis On Eliquis 2.5 mg by mouth twice a day CODE STATUS Full code Problem List: 1. COPD exacerbation 2. ACS (acute coronary syndrome) Pain Ratin Pain Location: n/a Pain Goal: Remain pain free Pain Plan: tyelnol Tomorrow's Labs & Rationales: n/a Consulting Request: Consulting Specialty: Cardiology
[2017-02-03 07:49] VITALS: BP 116/62
[2017-02-03 08:39] LABS: ABSOLUTE BASOPHIL COUNT 0 /CUMM (0.0-0.2); ABSOLUTE EOSINOPHIL COUNT 0 /CUMM (0.0-0.7); ABSOLUTE GRANULOCYTE CT 16.2 /CUMM (1.4-6.5); ABSOLUTE LYMPH COUNT 0.2 /CUMM (1.2-3.4); ABSOLUTE MONOCYTE COUNT 0.6 /CUMM (0.10-0.60); BASOPHIL % 0 % (0.0-2.0); EOSINOPHIL % 0 % (0-5); GRANULOCYTE % 95.5 % (42.2-75.2); MEAN CORPUSCULAR HGB 28.4 PG (27.0-31.0); MEAN CORPUSCULAR HGB CONC 32.5 G/DL (33.0-37.0); MEAN CORPUSCULAR VOLUME 87.3 FL (81.0-99.0); MEAN PLATELET VOLUME 7.4 FL (7.4-10.4); PLATELET COUNT 323 /CUMM (130-400); RED BLOOD CELL CT 4.36 /CUMM (4.20-5.40)
--- NOTE | 2017-02-03 14:04 | PN- Cardiology ---
Subjective Subjective: The patient continues to feel weak and dyspneic. She denies any current cardiac symptoms. Objective Vital Signs and I&Os Vital Signs Date Time Temp Pulse Resp B/P B/P Pulse O2 O2 Flow FiO2 Mean Ox Delivery Rate 02/03 1035 96 Nasal 3.0L Cannula 02/03 1029 95 102/56 02/03 0800 96 Nasal 3.0L Cannula 02/03 0749 98.6 82 18 116/62 96 Nasal Cannula 02/03 0000 Nasal 3.0L Cannula 02/02 2221 98.0 82 18 110/56 95 Nasal 3.0L Cannula 02/02 1600 Nasal 3.0L Cannula 02/02 1503 97.7 107 20 110/56 94 Nasal Cannula Intake & Output 02/03 1600 02/03 0000 02/02 1600 02/02 0000 Intake Total 0 100 0 200 Output Total 180 200 400 600 350 Balance -180 -100 -400 -600 -150 Intake, IV 0 0 Intake, Oral 0 100 0 200 Number 1 0 0 Bowel Movements Output, Urine 180 200 400 600 350 Patient 94 lb 15.99 oz Weight Physical Exam: General Appearance: Alert, Oriented X3, Cooperative, No Acute Distress, cachetic HEENT: Atraumatic, PERRLA, EOMI, Mucous Membr. moist/pink Neck: Supple, No JVD, +2 Carotid Pulse wo Bruit Cardiovascular: Normal S1, Normal S2, No Murmurs Lungs: decreased breath sounds bilaterally, no wheezes Abdomen: Normal Bowel Sounds, Soft, No Tenderness Neurological: Nonfocal Extremities: No Clubbing, No Cyanosis, No Edema, Normal Pulses, No Tenderness/ Swelling Vascular: Normal Pulses, Pulses Symmetrical Current Medications: Current Medications Sig/Kirill Start time Last Medication Dose Route Stop Time Status Admin Acetaminophen 650 MG Q4P PRN 01/31 1030 AC PO Albuterol Sulfate 3 ML Q4P PRN 01/31 1715 AC 02/03 INH 1033 Albuterol Sulfate 2 PUF Q4-PRN PRN 01/31 1715 AC INH Apixaban 2.5 MG BID 01/31 2200 AC 02/03 PO 1024 Aspirin 81 MG DAILY 02/01 1000 AC 02/03 PO 1023 Atorvastatin Calcium 80 MG 1700 01/31 1700 AC 02/02 PO 1638 Budesonide/ 2 PUF BID 01/31 1024 AC 02/03 Formoterol Fumarate INH 1025 Diltiazem HCl 90 MG DAILY 01/31 1024 AC 02/03 PO 1029 Fluticasone 2 SPRAY DAILY 01/31 1350 AC 02/02 Propionate MERLE 0908 Guaifenesin 600 MG Q12 02/01 2200 AC 02/03 PO 1024 Guaifenesin/ 10 ML Q6P PRN 02/01 0745 AC 02/03 Dextromethorphan PO 1024 Lorazepam 0.5 MG ONE ONE 02/02 2130 DC 02/02 PO 02/02 2131 220 Methylprednisolone 40 MG Q12 02/03 1000 AC IV Methylprednisolone 40 MG Q8 02/02 0720 DC 02/03 IV 0555 Morphine Sulfate 2 MG Q6P PRN 01/31 1030 AC IV Oxycodone HCl 5 MG Q6 PRN 01/31 1030 AC PO Sodium Chloride 2 SPRAY Q4P PRN 02/01 1545 AC 02/03 MERLE 1023 Tiotropium [place] 1 PUF DAILY 01/31 1024 AC 02/03 INH 1024 Results Last 48 Hrs of Labs/Mics: Laboratory Tests 02/03/17 0705: Anion Gap 9, Estimated GFR > 60, BUN/Creatinine Ratio 28.6 H, CBC w Diff NO MAN DIFF REQ, RBC 4.36, MCV 87.3, MCH 28.4, RDW 19.0 H, MPV 7.4, Gran % 95.5 H, Lymphocytes % 1.2 L, Monocytes % 3.3, Eosinophils % 0, Basophils % 0 L, Absolute Granulocytes 16.2 H, Absolute Lymphocytes 0.2 L, Absolute Monocytes 0.6, Absolute Eosinophils 0, Absolute Basophils 0, PUBS MCHC 32.5 L 02/01/17 2030: pH 7.48 H, pCO2 36, pO2 60 L, HCO3 26, ABG O2 Sat (Measured) 92.0 L, P-50 ( Temp Corrected) YES, Carboxyhemoglobin 1.1 L, O2 Concentration % 4L, Temperature 97.7, O2 Delivery Method NC, Phlebotomy Draw Site RIGHT RADIAL Assessment/Plan Assessment/Plan Assessment: 1. Syncope 2. Elevated troponin; possible demand ischemia 3. Paroxysmal atrial fibrillation-the patient remains in sinus rhythm at the present time 4. Severe COPD 5. History of decubitus skin ulcer 6. Moderate to severe pulmonary hypertension on echocardiogram Recommendations: -At the moment, the patient appears stable from a cardiac standpoint. -I have reviewed the healthcare corporate account director and there is no evidence of any recurrent arrhythmia as of today. -Continue current respiratory management as per pulmonary service -Continue the patient on the healthcare corporate account director for now. Continue telemetry? Yes
--- NOTE | 2017-02-03 14:46 | PN- Att Addend ---
Attending Addendum Attending Brief Note Patient sitting in the chair, again had a difficult early-morning better now. Patient states the Ativan helped her sleep better last evening. Has a loose cough. Still on IV steroids now every 12 hours and still getting respiratory treatments and using the saline nasal spray. Appreciate cardiology's input and recommendations and will continue observation during the day reevaluate in a.m. to see if we can switch her to steroids to by mouth. Intake & Output 02/03 1600 02/03 0000 02/02 1600 02/02 0000 Intake Total 0 100 0 200 Output Total 180 200 400 600 350 Balance -180 -100 -400 -600 -150 Intake, IV 0 0 Intake, Oral 0 100 0 200 Number 1 0 0 Bowel Movements Output, Urine 180 200 400 600 350 Patient 94 lb 15.99 oz Weight Current Medications Sig/Kirill Start time Last Medication Dose Route Stop Time Status Admin Acetaminophen 650 MG Q4P PRN 01/31 1030 AC PO Albuterol Sulfate 3 ML Q4P PRN 01/31 1715 AC 02/03 INH 1033 Albuterol Sulfate 2 PUF Q4-PRN PRN 01/31 1715 AC INH Apixaban 2.5 MG BID 01/31 2200 AC 02/03 PO 1024 Aspirin 81 MG DAILY 02/01 1000 AC 02/03 PO 1023 Atorvastatin Calcium 80 MG 1700 01/31 1700 AC 02/02 PO 1638 Budesonide/ 2 PUF BID 01/31 1024 AC 02/03 Formoterol Fumarate INH 1025 Diltiazem HCl 90 MG DAILY 01/31 1024 AC 02/03 PO 1029 Fluticasone 2 SPRAY DAILY 01/31 1350 AC 02/02 Propionate MERLE 0908 Guaifenesin 600 MG Q12 02/01 2200 AC 02/03 PO 1024 Guaifenesin/ 10 ML Q6P PRN 02/01 0745 AC 02/03 Dextromethorphan PO 1024 Lorazepam 0.5 MG ONE ONE 02/020 DC 02/02 PO 02/021 2206 Methylprednisolone 40 MG Q12 02/03 1000 AC IV Methylprednisolone 40 MG Q8 02/02 0720 DC 02/03 IV 0555 Morphine Sulfate 2 MG Q6P PRN 01/31 1030 AC IV Oxycodone HCl 5 MG Q6 PRN 01/31 1030 AC PO Sodium Chloride 2 SPRAY Q4P PRN 02/01 1545 AC 02/03 MERLE 1023 Tiotropium [place] 1 PUF DAILY 01/31 1024 AC 02/03 INH 1024 Laboratory Tests 02/03/17 0705: Anion Gap 9, Estimated GFR > 60, BUN/Creatinine Ratio 28.6 H, CBC w Diff NO MAN DIFF REQ, RBC 4.36, MCV 87.3, MCH 28.4, RDW 19.0 H, MPV 7.4, Gran % 95.5 H, Lymphocytes % 1.2 L, Monocytes % 3.3, Eosinophils % 0, Basophils % 0 L, Absolute Granulocytes 16.2 H, Absolute Lymphocytes 0.2 L, Absolute Monocytes 0.6, Absolute Eosinophils 0, Absolute Basophils 0, PUBS MCHC 32.5 L 02/01/17 2030: pH 7.48 H, pCO2 36, pO2 60 L, HCO3 26, ABG O2 Sat (Measured) 92.0 L, P-50 ( Temp Corrected) YES, Carboxyhemoglobin 1.1 L, O2 Concentration % 4L, Temperature 97.7, O2 Delivery Method NC, Phlebotomy Draw Site RIGHT RADIAL Vital Signs Date Time Temp Pulse Resp B/P B/P Pulse O2 O2 Flow FiO2 Mean Ox Delivery Rate 02/03 1035 96 Nasal 3.0L Cannula 02/03 1029 95 102/56 02/03 0800 96 Nasal 3.0L Cannula 02/03 0749 98.6 82 18 116/62 96 Nasal Cannula 02/03 0000 Nasal 3.0L Cannula 02/02 2221 98.0 82 18 110/56 95 Nasal 3.0L Cannula 02/02 1600 Nasal 3.0L Cannula 02/02 1503 97.7 107 20 110/56 94 Nasal Cannula
[2017-02-03 14:57] VITALS: BP 102/62
--- NOTE | 2017-02-03 17:13 | PN- Pulmonary ---
Subjective HPI/Critical Care Issues: The patient is awake and alert. She remains short of breath but feels improved since admission. There were no overnight events reported by staff. There were no new complaints. Objective Current Medications: Current Medications Sig/Kirill Start time Last Medication Dose Route Stop Time Status Admin Acetaminophen 650 MG Q4P PRN 01/31 1030 AC PO Albuterol Sulfate 3 ML Q4P PRN 01/31 1715 AC 02/03 INH 1604 Albuterol Sulfate 2 PUF Q4-PRN PRN 01/31 1715 AC INH Apixaban 2.5 MG BID 01/31 2200 AC 02/03 PO 1024 Aspirin 81 MG DAILY 02/01 1000 AC 02/03 PO 1023 Atorvastatin Calcium 80 MG 1700 01/31 1700 AC 02/02 PO 1638 Budesonide/ 2 PUF BID 01/31 1024 AC 02/03 Formoterol Fumarate INH 1025 Diltiazem HCl 90 MG DAILY 01/31 1024 AC 02/03 PO 1029 Fluticasone 2 SPRAY DAILY 01/31 1350 AC 02/02 Propionate MERLE 0908 Guaifenesin 600 MG Q12 02/01 2200 AC 02/03 PO 1024 Guaifenesin/ 10 ML Q6P PRN 02/01 0745 AC 02/03 Dextromethorphan PO 1024 Lorazepam 0.5 MG ONCE ONE 02/03 1700 DC IV 02/03 1701 Lorazepam 0.5 MG ONE ONE 02/02 2130 DC 02/02 PO 02/02 2131 2206 Methylprednisolone 40 MG Q12H 02/03 1800 AC IV Methylprednisolone 40 MG Q12 02/03 1000 DC IV Methylprednisolone 40 MG Q8 02/02 0720 DC 02/03 IV 0555 Morphine Sulfate 2 MG Q6P PRN 01/31 1030 AC IV Oxycodone HCl 5 MG Q6 PRN 01/31 1030 AC PO Sodium Chloride 2 SPRAY Q4P PRN 02/01 1545 AC 02/03 MERLE 1023 Tiotropium [place] 1 PUF DAILY 01/31 1024 AC 02/03 INH 1024 Vital Signs & I&O Last 24 Hrs of Vitals and I&O: Vital Signs Date Time Temp Pulse Resp B/P B/P Pulse O2 O2 Flow FiO2 Mean Ox Delivery Rate 02/03 1605 97 Nasal 3.0L Cannula 02/03 1457 98.0 102 18 102/62 96 Nasal Cannula 02/03 1035 96 Nasal 3.0L Cannula 02/03 1029 95 102/56 02/03 0800 96 Nasal 3.0L Cannula 02/03 0749 98.6 82 18 116/62 96 Nasal Cannula 02/03 0000 Nasal 3.0L Cannula 02/02 2221 98.0 82 18 110/56 95 Nasal 3.0L Cannula Intake & Output 02/03 1600 07/08 0800 07/ 0000 Intake Total 800 0 100 Output Total 600 180 200 Balance 200 -180 -100 Intake, Oral 800 0 100 Number 1 Bowel Movements Output, Urine 600 180 200 Physical Exam General Appearance: alert, awake, anxious, frail and thin, chronically ill Head: atraumatic, normal appearance Eyes: Bilateral: PERRL. Neck: supple Respiratory: very diminished breath sounds, quiet respirations, uses accessory muscules often but not currently in active distress Cardiovascular: regular rate/rhythm (distant heart sounds) Extremities: no edema Skin: intact, normal color, warm/dry Results Last 24 Hrs of Lab Results: Laboratory Tests 02/03/17 0705: Anion Gap 9, Estimated GFR > 60, BUN/Creatinine Ratio 28.6 H, CBC w Diff NO MAN DIFF REQ, RBC 4.36, MCV 87.3, MCH 28.4, RDW 19.0 H, MPV 7.4, Gran % 95.5 H, Lymphocytes % 1.2 L, Monocytes % 3.3, Eosinophils % 0, Basophils % 0 L, Absolute Granulocytes 16.2 H, Absolute Lymphocytes 0.2 L, Absolute Monocytes 0.6, Absolute Eosinophils 0, Absolute Basophils 0, PUBS MCHC 32.5 L Impression/Plan Impression/Plan Impression/Plan: 1. Acute on chronic respiratory failure, secondary to end stage COPD. 2. NSTEMI. 3. S/P syncope/fall. 4. Chronic sinus congestion. Recommendations: * Continue IV Solumedrol today, will consider changing over to prednisone tomorrow if she continues to improve. * TRC for nebulizer treatments to continue. * Please ask respiratory to try the patient on acapella therapy. * Titrate supplemental oxygen down for saturations around 90-92%. * Claritin 10 mg daily. * Continue nasal sailine. * Continue Symbicort and Spiriva. * Continue Mucinex for mucociliary clearance. * DVT prophylaxis at all times. * Out of bed to chair, increase activity. * Continue all supportive care.
--- NOTE | 2017-02-03 18:24 | CT SCAN REPORT ---
EXAMINATION: CT ANGIOGRAM OF THE CHEST WITH CONTRAST (CT PULMONARY ANGIOGRAM FOR PE) CLINICAL INFORMATION: Shortness of breath. Evaluate for pulmonary embolism. History of chronic obstructive pulmonary disease and treated lung cancer. COMPARISON: Chest CT from 08/31/2016 and 12/19/2016 TECHNIQUE: Prior to contrast administration, noncontrast localization images were obtained. Subsequently, multidetector volumetric imaging was performed from the thoracic inlet to below the diaphragms following the administration of 95 mL Optiray 320 intravenous contrast. No contrast reaction reported. Sagittal, coronal, and MIP oblique sagittal reformatted images were obtained on the CT workstation, uploaded to PACS, and reviewed. Total exam dose-length product 284 mGy-cm FINDINGS: QUALITY OF STUDY/CONTRAST BOLUS: Satisfactory. PULMONARY ARTERIES: No filling defects are identified in the main, lobar or segmental vessels. THORACIC AORTA: There is atherosclerotic calcification of the thoracic aorta without aneurysm or dissection. LUNGS AND PLEURA: Proximal to the vahid, there is mucus along the posterior tracheal wall. There is severe centrilobular and bullous emphysema. Bronchial pompa are chronically thickened in both lungs. There are secretions within bronchi of the anterior and medial segments of the right lower lobe with new areas of consolidation in the posteromedial right lower lobe, suggestive of bronchopneumonia. 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 Atelectasis and/or consolidation within the lingula has markedly decreased compared to 12/19/2016. There are new secretions filling bronchi within the posterior and medial segments of the left lower lobe. The left pleural effusion has decreased compared to 12/19/2016. However, there is persistent peripheral atelectasis/infiltrate within the left lower lobe. MEDIASTINUM: Normal heart size. No pericardial effusion. No evidence of septal bowing or right heart strain. The esophagus is distended with gas and a small amount of fluid, possibility due to esophageal dysmotility. Thyroid gland is atrophied. Small, 0.6 cm hypodense nodule is present in the inferior right thyroid lobe. LYMPHATICS: No pathologic sized axillary, hilar or mediastinal lymph nodes. UPPER ABDOMEN: No acute findings in the examined upper abdomen. No reflux of contrast into the hepatic veins to suggest elevated right heart pressures. OSSEOUS STRUCTURES: Levoscoliosis of the degenerated lumbar spine. Old compression fracture of T7 vertebral body which is relatively sclerotic compared to the other vertebra that have normal height. IMPRESSION: 1. No evidence of pulmonary embolism. 2. Severe pulmonary emphysema. 3. The esophagus remains distended with gas and a small amount of fluid; this suggests possibility of esophageal dysmotility. 4. New secretions within bilateral lower lobe bronchi and lower lobe opacities from pneumonia and atelectasis. Aspiration pneumonia is possible. Small left pleural effusion has decreased compared to 12/19/2016.
[2017-02-03 22:24] VITALS: BP 110/68
[2017-02-04 07:02] VITALS: BP 116/70
--- NOTE | 2017-02-04 08:54 | PN- Cardiology ---
Subjective Subjective: No change in cardiac status Remains dyspneic Objective Vital Signs and I&Os Vital Signs Date Time Temp Pulse Resp B/P B/P Pulse O2 O2 Flow FiO2 Mean Ox Delivery Rate 02/04 07 97.8 86 16 116/70 94 Nasal Cannula 02/04 0000 Nasal 3.0L Cannula 02/03 2224 97.5 96 16 110/68 94 Nasal 2.5L Cannula 02/03 1605 97 Nasal 3.0L Cannula 02/03 1457 98.0 102 18 102/62 96 Nasal Cannula 02/03 1035 96 Nasal 3.0L Cannula 02/03 1029 95 102/56 Intake & Output 02/04 1600 02/04 0800 02/04 0000 02/03 1600 02/03 0800 02/03 0000 Intake Total 240 600 800 0 100 Output Total 600 180 200 Balance 240 600 200 -180 -100 Intake, Oral 240 600 800 0 100 Number 1 Bowel Movements Output, Urine 600 180 200 Physical Exam: General Appearance: Alert, Oriented X3, Cooperative, No Acute Distress, cachetic HEENT: Atraumatic, PERRLA, EOMI, Mucous Membr. moist/pink Neck: Supple, No JVD, +2 Carotid Pulse wo Bruit Cardiovascular: Normal S1, Normal S2, No Murmurs Lungs: decreased breath sounds bilaterally, no wheezes Abdomen: Normal Bowel Sounds, Soft, No Tenderness Neurological: Nonfocal Extremities: No Clubbing, No Cyanosis, No Edema, Normal Pulses, No Tenderness/ Swelling Vascular: Normal Pulses, Pulses Symmetrical Current Medications: Current Medications Sig/Kirill Start time Last Medication Dose Route Stop Time Status Admin Acetaminophen 650 MG Q4P PRN 01/31 1030 AC PO Albuterol Sulfate 3 ML Q4P PRN 01/31 1715 AC 02/03 INH 1604 Albuterol Sulfate 2 PUF Q4-PRN PRN 01/31 1715 AC INH Apixaban 2.5 MG BID 01/31 2200 AC 02/03 PO 2118 Aspirin 81 MG DAILY 02/01 1000 AC 02/03 PO 1023 Atorvastatin Calcium 80 MG 1700 01/31 1700 AC 02/03 PO 1713 Budesonide/ 2 PUF BID 01/31 1024 AC 02/03 Formoterol Fumarate INH 2119 Diltiazem HCl 90 MG DAILY 01/31 1024 AC 02/03 PO 1029 Fluticasone 2 SPRAY DAILY 01/31 1350 AC 02/02 Propionate MERLE 0908 Guaifenesin 600 MG Q12 02/01 2200 AC 02/03 PO 2119 Guaifenesin/ 10 ML Q6P PRN 02/01 0745 AC 02/03 Dextromethorphan PO 1024 Lorazepam 0.5 MG ONE ONE 02/03 2315 DC / PO 02/03 2316 2319 Lorazepam 0.5 MG ONCE ONE 02/03 1700 DC 02/03 IV 02/03 1701 1709 Methylprednisolone 40 MG Q12 02/03 2200 AC 02/03 IV 2119 Methylprednisolone 40 MG Q12H 02/03 1800 DC 02/03 IV 1709 Methylprednisolone 40 MG Q12 02/03 1000 DC IV Methylprednisolone 40 MG Q8 02/02 0720 DC 02/03 IV 0555 Morphine Sulfate 2 MG Q6P PRN 01/31 1030 AC IV Oxycodone HCl 5 MG Q6 PRN 01/31 1030 AC PO Sodium Chloride 2 SPRAY Q4P PRN 02/01 1545 AC 02/03 MERLE 1023 Tiotropium [place] 1 PUF DAILY 01/31 1024 AC 02/03 INH 1024 Results Last 48 Hrs of Labs/Mics: Laboratory Tests 02/03/17 0705: Anion Gap 9, Estimated GFR > 60, BUN/Creatinine Ratio 28.6 H, CBC w Diff NO MAN DIFF REQ, RBC 4.36, MCV 87.3, MCH 28.4, RDW 19.0 H, MPV 7.4, Gran % 95.5 H, Lymphocytes % 1.2 L, Monocytes % 3.3, Eosinophils % 0, Basophils % 0 L, Absolute Granulocytes 16.2 H, Absolute Lymphocytes 0.2 L, Absolute Monocytes 0.6, Absolute Eosinophils 0, Absolute Basophils 0, PUBS MCHC 32.5 L Assessment/Plan Assessment/Plan Assessment: 1. Syncope 2. Elevated troponin; possible demand ischemia 3. Paroxysmal atrial fibrillation-the patient remains in sinus rhythm at the present time 4. Severe COPD 5. History of decubitus skin ulcer 6. Moderate to severe pulmonary hypertension on echocardiogram Recommendations: - Continue curreent management - Keep on telemetry for now - Followup labs in AM Continue telemetry? Yes
--- NOTE | 2017-02-04 09:22 | PN- Housestaff ---
Subjective Follow-up For: - NSTEMI - End satge COPD on 1.5 L of oxygen at home - Atrial fibrillation on Eliquis - Acute SOb Complaints: no complaints Tele-Events Since Last Visit: Sinus rhythm Rate 77-85 no acute overnight events Subjective: patient was seen and examined at bedside. She is alert awake and oriented to time place and person. No acute events noticed overnight. She continues to have cough associated with some phlegm production. She is on 3 L nasal cannula saturating at 94%. Patient reports anxiety. Denies any fever, chills. Vitals remained stable. Afebrile, heart rate 97, respiratory rate 18, blood pressure 120/70, saturating at 84 on 3 L nasal cannula. Review of Systems Constitutional: Reports: see HPI. Objective Last 24 Hrs of Vital Signs/I&O Vital Signs Date Time Temp Pulse Resp B/P B/P Pulse O2 O2 Flow FiO2 Mean Ox Delivery Rate 02/04 0905 97 112/70 02/04 0702 97.8 86 16 116/70 94 Nasal Cannula 02/04 0000 Nasal 3.0L Cannula 02/03 2224 97.5 96 16 110/68 94 Nasal 2.5L Cannula 02/03 1605 97 Nasal 3.0L Cannula 02/03 1457 98.0 102 18 102/62 96 Nasal Cannula 02/03 1035 96 Nasal 3.0L Cannula 02/03 1029 95 102/56 Intake & Output 02/04 1600 02/04 0800 02/04 0000 Intake Total 240 600 Output Total Balance 240 600 Intake, Oral 240 600 Physical Exam General Appearance: Alert, Oriented X3, Cooperative Skin: No Rashes, No Breakdown HEENT: Atraumatic, PERRLA, EOMI, Mucous Membr. moist/pink Neck: Supple, No JVD, No thryomegaly Lymphatic: Cervical nl Cardiovascular: Normal S1, Normal S2 Lungs: b/l wheeezes and dec air entry Abdomen: Normal Bowel Sounds, Soft, No Tenderness, No Hepatospenomegaly Neurological: Normal Speech, Strength at 5/5 X4 Ext, Normal Tone, Sensation Intact Extremities: No Clubbing, No Cyanosis, No Edema Vascular: Normal Pulses, Pulses Symmetrical Current Medications: Current Medications Sig/Kirill Start time Last Medication Dose Route Stop Time Status Admin Acetaminophen 650 MG Q4P PRN 01/31 1030 AC PO Albuterol Sulfate 3 ML Q4P PRN 01/31 1715 AC 02/03 INH 1604 Albuterol Sulfate 2 PUF Q4-PRN PRN 01/31 1715 AC INH Apixaban 2.5 MG BID 01/31 2200 AC 02/04 PO 0903 Aspirin 81 MG DAILY 02/01 1000 AC 02/04 PO 0903 Atorvastatin Calcium 80 MG 1700 07/ 1700 AC 02/03 PO 1713 Budesonide/ 2 PUF BID 01/31 1024 AC 02/04 Formoterol Fumarate INH 0908 Diltiazem HCl 90 MG DAILY 01/31 1024 AC 02/04 PO 0905 Fluticasone 2 SPRAY DAILY 01/31 1350 AC 02/02 Propionate MERLE 0908 Guaifenesin 600 MG Q12 02/01 2200 AC 02/04 PO 0903 Guaifenesin/ 10 ML Q6P PRN 02/01 0745 AC 02/03 Dextromethorphan PO 1024 Loratadine 10 MG DAILY 02/04 1000 AC PO Lorazepam 0.5 MG ONE ONE 02/03 2315 DC 02/03 PO 02/03 2316 2319 Lorazepam 0.5 MG ONCE ONE 02/03 1700 DC 02/03 IV 08 1701 1709 Methylprednisolone 40 MG Q12 02/03 2200 AC 02/04 IV 0905 Methylprednisolone 40 MG Q12H 02/03 1800 DC 02/03 IV 1709 Methylprednisolone 40 MG Q12 02/03 1000 DC IV Methylprednisolone 40 MG Q8 02/02 0720 DC 02/03 IV 0555 Morphine Sulfate 2 MG Q6P PRN 01/31 1030 AC IV Oxycodone HCl 5 MG Q6 PRN 01/31 1030 AC PO Sodium Chloride 2 SPRAY Q4P PRN 02/01 1545 AC 02/04 MERLE 0908 Tiotropium [place] 1 PUF DAILY 01/31 1024 AC 02/04 INH 0907 Last 24 Hrs of Lab/Mannie Results Last 24 Hrs of Labs/Mics: Laboratory Tests 02/04/17 0835: CBC w Diff Pending, WBC Pending, RBC Pending, Hgb Pending, Hct Pending, MCV Pending, MCH Pending, RDW Pending, Plt Count Pending, MPV Pending, PUBS MCHC Pending Assessment/Plan Assessment: 76-year-old female with a past medical history of COPD on 1.5-2 L of oxygen at home, atrial fibrillation on Eliquis, left lung cancer status post radiation in September 2015, anxiety, depression, osteoporosis presents to the ED status post unwitnessed fall. Vitals at the time of admission blood pressure 165/81, respiratory rate of 24, tachycardic to 120, afebrile saturating 91% on 3 L of oxygen via nasal cannula. On physical exam she is a cachectic looking elderly female, was alert and oriented 3 and in mild respiratory distress sitting in bed. HEENT revealed PERRLA, EOMI, dry mucous membranes. Examination of the neck revealed an elevated JVD. Her last exam revealed normal S1, S2, no murmurs appreciated. Auscultation of the chest revealed bilaterally decreased breath sounds. Abdominal exam was benign with abdomen soft, nontender, nondistended normal bowel sounds in all 4 quadrants. Neurological exam was grossly unremarkable. Examination of the liver extends reveal any edema. Labs were pertinent for leukocytosis with a white blood cell count 19,500, H&H of 13.9/42.0, normal platelet count of 390,000. Serum chemistries revealed a sodium of 137, potassium of 3.6, bicarbonate of 27, anion gap of 11, BUN 12 with a creatinine of 0.6. Serum glucose elevated to 110. LFTs unremarkable with an AST/ALT of 28/44, alkaline phosphatase of 95% first set of troponin positive at 0.34. Head and cervical spine CT was done which was in no acute fracture dislocation of the cervical spine, ectatic left carotid and proximal middle cerebral artery in the suprasellar region with was negative for any intracranial bleed. EKG revealed sinus tachycardia with a heart rate of 120, normal axis, no ST-T changes with a right bundle branch block that is unchanged. Last echo was done in August 2016 which showed normal global left ventricular size, no obvious trauma regional wall motion abnormalities with a left ventricular ejection fraction more than 65%. 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 In the ER she received 10 mg of IV diltiazem 1 and administered aspirin 325 mg orally 1. Assessment and plan #Syncopal episode Most likely secondary to dehydration versus NSTEMI Her orthostats were negative. She was hydrated with IV fluids at 75 MLS per hour for 1 bag No events were observed on telemetry- remained in sinus rhythm Serum prolactin was obtained which ruled out underlying seizure. #Elevated troponins with no EKG changes Msot likely secondary to type II CO from demand ischemia secondary to tachycardia versus NSTEMI. Continue aspirin 81 mg daily and atorvastatin 80 mg daily. Her troponins trended up from 0.34 to 0.68 to 0.81 to 0.80- 0.74. Echocardiogram revealed stage I diastolic dysfunction Patient is already on diltiazem and has a history of end-stage COPD so will avoid beta blockers. #Sinus tachycardia - Resolved -Her TSH and free T4 were WNL. #COPD Continue on supplemental oxygen Solumedrrol 40mg IV - TAPER TO PREDNISONE 40- FROM TMR TRC nebs Continue Symbicort Continue Robitussin for cough CXR showed chronic changes with persistent linear perihilar opacity slightly improved. Pulm consult with Dr. Zepeda. F/U recs CTA- TO RULE OUT PE 1. No evidence of pulmonary embolism. 2. Severe pulmonary emphysema. 3. The esophagus remains distended with gas and a small amount of fluid; this suggests possibility of esophageal dysmotility. 4. New secretions within bilateral lower lobe bronchi and lower lobe opacities from pneumonia and atelectasis. Aspiration pneumonia is possible. Small left pleural effusion has decreased compared to 12/19/2016. # Hx of Atrial fibrillation She was continued on Cardizem 90 mg daily and Eliquis 2.5 mg twice a day by mouth #Decubitus skin ulcer Present on admssion - Wound nurse to see her Placed patient oin calorie count -Diet Heart healthy DVT prophylaxis On Eliquis 2.5 mg by mouth twice a day CODE STATUS Full code Problem List: 1. ACS (acute coronary syndrome) 2. COPD exacerbation Pain Ratin Pain Location: n/a Pain Goal: Remain pain free Pain Plan: tylenol Tomorrow's Labs & Rationales: cbc in the setting of leukocytosis Consulting Request: Consulting Specialty: Cardiology
[2017-02-04 10:44] LABS: ABSOLUTE BASOPHIL COUNT 0 /CUMM (0.0-0.2); ABSOLUTE EOSINOPHIL COUNT 0 /CUMM (0.0-0.7); ABSOLUTE GRANULOCYTE CT 15.2 /CUMM (1.4-6.5); ABSOLUTE LYMPH COUNT 0.2 /CUMM (1.2-3.4); ABSOLUTE MONOCYTE COUNT 0.7 /CUMM (0.10-0.60); BASOPHIL % 0 % (0.0-2.0); EOSINOPHIL % 0 % (0-5); GRANULOCYTE % 94.7 % (42.2-75.2); HEMATOCRIT 38.2 % (37-47); MEAN CORPUSCULAR HGB 28.2 PG (27.0-31.0); MEAN CORPUSCULAR HGB CONC 32.5 G/DL (33.0-37.0); MEAN CORPUSCULAR VOLUME 86.8 FL (81.0-99.0); MEAN PLATELET VOLUME 7.6 FL (7.4-10.4); PLATELET COUNT 295 /CUMM (130-400)
--- NOTE | 2017-02-04 13:08 | PN- Pulmonary ---
Subjective HPI/Critical Care Issues: The patient is awake and alert. She reports feeling improved overall. She has less shortness of breath. She has a minimal cough and is not producing much sputum. She remains afebrile. Her EBC count is slowly trending down. Objective Current Medications: Current Medications Sig/Kirill Start time Last Medication Dose Route Stop Time Status Admin Acetaminophen 650 MG Q4P PRN 07 1030 AC PO Albuterol Sulfate 3 ML Q4P PRN 01/31 1715 AC 02/04 INH 1148 Albuterol Sulfate 2 PUF Q4-PRN PRN 01/31 1715 AC INH Apixaban 2.5 MG BID 01/31 2200 AC 02/04 PO 0903 Aspirin 81 MG DAILY 02/01 1000 AC 02/04 PO 0903 Atorvastatin Calcium 80 MG 1700 01/31 1700 AC 02/03 PO 1713 Budesonide/ 2 PUF BID 01/31 1024 AC 02/04 Formoterol Fumarate INH 0908 Diltiazem HCl 90 MG DAILY 01/31 1024 AC 02/04 PO 0905 Fluticasone 2 SPRAY DAILY 01/31 1350 AC 02/02 Propionate MERLE 0908 Guaifenesin 600 MG Q12 02/01 2200 AC 02/04 PO 0903 Guaifenesin/ 10 ML Q6P PRN 02/01 0745 AC 02/03 Dextromethorphan PO 1024 Loratadine 10 MG DAILY 02/04 1000 AC 02/04 PO 1110 Lorazepam 0.5 MG ONE ONE 02/03 2315 DC / PO 02/03 2316 2319 Lorazepam 0.5 MG ONCE ONE 02/03 1700 DC / IV 02/03 1701 1709 Methylprednisolone 40 MG Q12 02/03 2200 AC 02/04 IV 0905 Methylprednisolone 40 MG Q12H / 1800 DC / IV 1709 Methylprednisolone 40 MG Q12 / 1000 DC IV Morphine Sulfate 2 MG Q6P PRN 01/31 1030 AC IV Oxycodone HCl 5 MG Q6 PRN 01/31 1030 AC PO Sodium Chloride 2 SPRAY Q4P PRN 02/01 1545 AC 02/04 MERLE 0908 Tiotropium [place] 1 PUF DAILY 01/31 1024 AC 02/04 INH 0907 Vital Signs & I&O Last 24 Hrs of Vitals and I&O: Vital Signs Date Time Temp Pulse Resp B/P B/P Pulse O2 O2 Flow FiO2 Mean Ox Delivery Rate 02/04 1204 94 Nasal 2.0L Cannula 02/04 0905 97 112/70 02/04 0800 94 Nasal 2.0L Cannula 02/04 0702 97.8 86 16 116/70 94 Nasal Cannula 02/04 0000 Nasal 3.0L Cannula 02/03 2224 97.5 96 16 110/68 94 Nasal 2.5L Cannula 02/03 1605 97 Nasal 3.0L Cannula 02/03 1457 98.0 102 18 102/62 96 Nasal Cannula Intake & Output 02/04 1600 02/04 0800 02/04 0000 Intake Total 240 600 Output Total Balance 240 600 Intake, Oral 240 600 Physical Exam General Appearance: alert, awake, anxious, frail and thin, chronically ill Head: atraumatic, normal appearance Eyes: Bilateral: PERRL. Neck: supple Respiratory: very diminished breath sounds, quiet respirations, uses accessory muscules often but not currently in active distress Cardiovascular: regular rate/rhythm (distant heart sounds) Extremities: no edema Skin: intact, normal color, warm/dry Results Last 24 Hrs of Lab Results: Laboratory Tests 02/04/17 0835: CBC w Diff NO MAN DIFF REQ, RBC 4.40, MCV 86.8, MCH 28.2, RDW 19.0 H, MPV 7.6, Gran % 94.7 H, Lymphocytes % 1.0 L, Monocytes % 4.3, Eosinophils % 0, Basophils % 0 L, Absolute Granulocytes 15.2 H, Absolute Lymphocytes 0.2 L, Absolute Monocytes 0.7 H, Absolute Eosinophils 0, Absolute Basophils 0, PUBS MCHC 32.5 L Impression/Plan Impression/Plan Impression/Plan: 1. Acute on chronic respiratory failure, secondary to end stage COPD. 2. NSTEMI. 3. S/P syncope/fall. 4. Chronic sinus congestion. Recommendations: * Prednisone 40 mg daily. Will wean down slowly. * TRC for nebulizer treatments to continue. * Please ask respiratory to try the patient on acapella therapy. * Supplemental oxygen down for saturations around 90-92%. * Claritin 10 mg daily. * Continue nasal sailine. * Continue Symbicort and Spiriva. * Continue Mucinex for mucociliary clearance. * DVT prophylaxis at all times. * Out of bed to chair, increase activity. * Continue all supportive care.
[2017-02-04 14:53] VITALS: BP 104/58
--- NOTE | 2017-02-04 15:29 | PN- Att Addend ---
Attending Addendum Attending Brief Note Patient sitting in the chair better today, last night again had increased cough and increased secretions, went for a chest CT which showed no pulmonary emboli but severe pulmonary emphysema and secretions in different areas with decreased left pleural effusion her white count is down to 16,000. Appreciate pulmonary's input and recommendations. Will continue present treatment Intake & Output 02/04 1600 02/04 0400 02/03 1600 02/03 0400 02/02 1600 02/02 0400 Intake Total 1040 600 800 100 0 200 Output Total 747 886 2371 350 Balance 1040 600 20 -100 -1000 -150 Intake, IV 0 0 Intake, Oral 1040 600 800 100 0 200 Number 1 1 1 0 Bowel Movements Output, Urine 750 953 1741 350 Patient 94 lb 15.99 oz Weight Current Medications Sig/Kirill Start time Last Medication Dose Route Stop Time Status Admin Acetaminophen 650 MG Q4P PRN 01/31 1030 AC PO Albuterol Sulfate 3 ML Q4P PRN 01/31 1715 AC 02/04 INH 1148 Albuterol Sulfate 2 PUF Q4-PRN PRN 01/31 1715 AC INH Apixaban 2.5 MG BID 01/31 2200 AC 02/04 PO 0903 Aspirin 81 MG DAILY 02/01 1000 AC 02/04 PO 0903 Atorvastatin Calcium 80 MG 1700 01/31 1700 AC 02/03 PO 1713 Budesonide/ 2 PUF BID 01/31 1024 AC 02/04 Formoterol Fumarate INH 0908 Diltiazem HCl 90 MG DAILY 01/31 1024 AC 02/04 PO 0905 Fluticasone 2 SPRAY DAILY 01/31 1350 AC 02/02 Propionate MERLE 0908 Guaifenesin 600 MG Q12 02/01 2200 AC 02/04 PO 0903 Guaifenesin/ 10 ML Q6P PRN 02/01 0745 AC 02/03 Dextromethorphan PO 1024 Loratadine 10 MG DAILY 02/04 1000 AC 02/04 PO 1110 Lorazepam 0.5 MG ONE ONE 02/03 2315 DC 02/03 PO 02/03 2316 2319 Lorazepam 0.5 MG ONCE ONE 02/03 1700 DC 02/03 IV 02/03 1701 1709 Methylprednisolone 40 MG Q12 02/03 2200 AC 02/04 IV 0905 Methylprednisolone 40 MG Q12H 02/03 1800 DC 02/03 IV 1709 Methylprednisolone 40 MG Q12 02/03 1000 DC IV Morphine Sulfate 2 MG Q6P PRN 01/31 1030 AC IV Oxycodone HCl 5 MG Q6 PRN 01/31 1030 AC PO Sodium Chloride 2 SPRAY Q4P PRN 02/01 1545 AC 02/04 MERLE 0908 Tiotropium [place] 1 PUF DAILY 01/31 1024 AC 02/04 INH 0907 Laboratory Tests 02/04/17 0835: CBC w Diff NO MAN DIFF REQ, RBC 4.40, MCV 86.8, MCH 28.2, RDW 19.0 H, MPV 7.6, Gran % 94.7 H, Lymphocytes % 1.0 L, Monocytes % 4.3, Eosinophils % 0, Basophils % 0 L, Absolute Granulocytes 15.2 H, Absolute Lymphocytes 0.2 L, Absolute Monocytes 0.7 H, Absolute Eosinophils 0, Absolute Basophils 0, PUBS MCHC 32.5 L 02/03/17 0705: Anion Gap 9, Estimated GFR > 60, BUN/Creatinine Ratio 28.6 H, CBC w Diff NO MAN DIFF REQ, RBC 4.36, MCV 87.3, MCH 28.4, RDW 19.0 H, MPV 7.4, Gran % 95.5 H, Lymphocytes % 1.2 L, Monocytes % 3.3, Eosinophils % 0, Basophils % 0 L, Absolute Granulocytes 16.2 H, Absolute Lymphocytes 0.2 L, Absolute Monocytes 0.6, Absolute Eosinophils 0, Absolute Basophils 0, PUBS MCHC 32.5 L 02/01/17 2030: pH 7.48 H, pCO2 36, pO2 60 L, HCO3 26, ABG O2 Sat (Measured) 92.0 L, P-50 ( Temp Corrected) YES, Carboxyhemoglobin 1.1 L, O2 Concentration % 4L, Temperature 97.7, O2 Delivery Method NC, Phlebotomy Draw Site RIGHT RADIAL
[2017-02-04 21:57] VITALS: BP 122/70
[2017-02-05 07:31] VITALS: BP 163/83
--- NOTE | 2017-02-05 08:17 | PN- Housestaff ---
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 No overnight events Subjective: Patient seen and examined at bedside. She is coughing, apparently a CTA was done over the weekend which did not show any evidence fo pulmonary embolism. Of note, she continues to remain afebrile. Review of Systems Constitutional: Denies: chills, diaphoresis, fever. EENTM: Denies: visual changes. Cardiovascular: Denies: chest pain, orthopena, palpitations, peripheral edema, syncope. Respiratory: Reports: cough, short of breath, sputum production. Denies: hemoptysis, orthopnea, wheezing. Gastrointestinal: Denies: abdominal pain, constipation, diarrhea, nausea, vomiting. Genitourinary: Reports: no symptoms. Musculoskeletal: Reports: no symptoms. Neurological/Psychological: Denies: headache, numbness, tingling, tremors. Objective Last 24 Hrs of Vital Signs/I&O Vital Signs Date Time Temp Pulse Resp B/P B/P Pulse O2 O2 Flow FiO2 Mean Ox Delivery Rate 02/05 0731 97.4 83 18 163/83 96 Nasal Cannula 02/05 0000 94 Nasal 2.0L Cannula 02/04 2157 98.9 85 18 122/70 94 02/04 2031 96 Nasal 2.0L Cannula 02/04 1453 97.8 97 20 104/58 96 Nasal 2.0L Cannula 02/04 1204 94 Nasal 2.0L Cannula 02/04 0905 97 112/70 Intake & Output 02/05 1600 02/05 0800 02/05 0000 Intake Total 300 480 Output Total 350 500 Balance -50 -20 Intake, Oral 300 480 Output, Urine 350 500 Physical Exam General Appearance: Alert, Oriented X3, Cooperative, Mild Distress HEENT: Atraumatic, PERRLA, EOMI, Mucous Membr. moist/pink Neck: Supple, No JVD, No thryomegaly, +2 Carotid Pulse wo Bruit, No LAD Cardiovascular: Normal S1, Normal S2, No Murmurs Lungs: Clear to Auscultation, Normal Air Movement, no wheezes Abdomen: Normal Bowel Sounds, Soft, No Tenderness Neurological: Normal Speech, Strength at 5/5 X4 Ext, Normal Tone, Sensation Intact, Cranial Nerves 3-12 NL, Reflexes 2+ Extremities: No Clubbing, No Cyanosis, Normal Pulses, No Tenderness/Swelling, trace b/l lwoer extermity edema Vascular: Normal Pulses, Pulses Symmetrical Current Medications: Current Medications Sig/Kirill Start time Last Medication Dose Route Stop Time Status Admin Acetaminophen 650 MG Q4P PRN 01/31 1030 AC PO Albuterol Sulfate 3 ML Q4P PRN 01/31 1715 AC 02/04 INH 2015 Albuterol Sulfate 2 PUF Q4-PRN PRN 01/31 1715 AC INH Apixaban 2.5 MG BID 01/31 2200 AC 02/04 PO 2143 Aspirin 81 MG DAILY 02/01 1000 AC 02/04 PO 0903 Atorvastatin Calcium 80 MG 1700 01/31 1700 AC 02/04 PO 1543 Budesonide/ 2 PUF BID 01/31 1024 AC 02/04 Formoterol Fumarate INH 2143 Diltiazem HCl 90 MG DAILY 01/31 1024 AC 02/04 PO 0905 Fluticasone 2 SPRAY DAILY 01/31 1350 AC 02/02 Propionate MERLE 0908 Guaifenesin 600 MG Q12 02/01 2200 AC 02/04 PO 2143 Guaifenesin/ 10 ML Q6P PRN 02/01 0745 AC 02/04 Dextromethorphan PO 2143 Loratadine 10 MG DAILY 02/04 1000 AC 02/04 PO 1110 Lorazepam 0.5 MG BID PRN 02/04 2045 AC / PO 02/11 2044 2143 Methylprednisolone 40 MG Q12 02/03 2200 DC 02/04 IV 0905 Morphine Sulfate 2 MG Q6P PRN 01/31 1030 AC IV Oxycodone HCl 5 MG Q6 PRN 01/31 1030 AC PO Prednisone 40 MG DAILY 02/05 1000 AC PO Sodium Chloride 2 SPRAY Q4P PRN 02/01 1545 AC 02/04 MERLE 0908 Tiotropium [place] 1 PUF DAILY 01/31 1024 AC 02/04 INH 0907 Last 24 Hrs of Lab/Mannie Results Last 24 Hrs of Labs/Mics: Laboratory Tests 02/04/17 0835: CBC w Diff NO MAN DIFF REQ, RBC 4.40, MCV 86.8, MCH 28.2, RDW 19.0 H, MPV 7.6, Gran % 94.7 H, Lymphocytes % 1.0 L, Monocytes % 4.3, Eosinophils % 0, Basophils % 0 L, Absolute Granulocytes 15.2 H, Absolute Lymphocytes 0.2 L, Absolute Monocytes 0.7 H, Absolute Eosinophils 0, Absolute Basophils 0, PUBS MCHC 32.5 L Orders ECHO Findings: FINDINGS Left Ventricle Normal left ventricular size and wall thickness. Normal left ventricular ejection fraction visually estimated at >65 %. Abnormal relaxation filling pattern of the left ventricle for age (stage 1 diastolic dysfunction). Right Ventricle Right ventricle not well visualized, grossly normal. Right Atrium Right atrium not well visualized, grossly normal. Left Atrium Normal left atrial size. Mitral Valve Mitral valve not well visualized, grossly normal. No mitral regurgitation. Aortic Valve Aortic valve not well visualized, grossly normal. No aortic stenosis. No aortic regurgitation. Tricuspid Valve Tricuspid valve is normal in structure and function. Trace to mild tricuspid regurgitation. Right ventricular systolic pressure estimated to be elevated at 50-55 mmHg. Moderate to severe pulmonary hypertension. Pulmonic Valve Pulmonic valve not well visualized, grossly normal. No pulmonic regurgitation. Pericardium No pericardial or pleural effusion. Great Vessels Normal size aortic root. CONCLUSIONS Technically difficult and limited study. Normal left ventricular ejection fraction visually estimated at >65 Abnormal relaxation filling pattern of the left ventricle for age (stage 1 diastolic dysfunction). Normal left atrial size. Mitral valve not well visualized, grossly normal. No mitral regurgitation. Aortic valve not well visualized, grossly normal. No aortic stenosis. Trace to mild tricuspid regurgitation. Right ventricular systolic pressure estimated to be elevated at 50- 55 mmHg. Moderate to severe pulmonary hypertension. Edil Plunkett M.D. (Electronically Signed) Final Date: 02 February 2017 15:43 MEASUREMENTS (Male / Female) Normal Values 2D ECHO LV Diastolic Diameter PLAX 3.3 cm 4.2 - 5.9 / 3.9 - 5.3 cm LV Systolic Diameter PLAX 1.7 cm 2.1 - 4.0 cm LV Fractional Shortening PLAX 48.5 % 25 - 46 % LV Ejection Fraction 2D Teich 81.0 % IVS Diastolic Thickness 0.7 cm LVPW Diastolic Thickness 0.8 cm LV Relative Wall Thickness 0.5 RV Internal Dim ED PLAX 2.4 cm 1.9 - 3.8 cm LVOT Diameter 1.7 cm Aortic Root Diameter 2.5 cm LA Systolic Diameter LX 2.1 cm 3.0 - 4.0 / 2.7 - 3.8 cm Ascending Aorta Diameter 2.7 cm Radiology Findings: SERVICE DATE: 02/03/17 EXAM TYPE: CAT - CTA CHEST-PULMONARY EMBOLISM FINDINGS: QUALITY OF STUDY/CONTRAST BOLUS: Satisfactory. PULMONARY ARTERIES: No filling defects are identified in the main, lobar or segmental vessels. THORACIC AORTA: There is atherosclerotic calcification of the thoracic aorta without aneurysm or dissection. LUNGS AND PLEURA: Proximal to the vahid, there is mucus along the posterior tracheal wall. There is severe centrilobular and bullous emphysema. Bronchial pompa are chronically thickened in both lungs. There are secretions within bronchi of the anterior and medial segments of the right lower lobe with new areas of consolidation in the posteromedial right lower lobe, suggestive of bronchopneumonia. 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 Atelectasis and/or consolidation within the lingula has markedly decreased compared to 12/19/2016. There are new secretions filling bronchi within the posterior and medial segments of the left lower lobe. The left pleural effusion has decreased compared to 12/19/2016. However, there is persistent peripheral atelectasis/infiltrate within the left lower lobe. MEDIASTINUM: Normal heart size. No pericardial effusion. No evidence of septal bowing or right heart strain. The esophagus is distended with gas and a small amount of fluid, possibility due to esophageal dysmotility. Thyroid gland is atrophied. Small, 0.6 cm hypodense nodule is present in the inferior right thyroid lobe. LYMPHATICS: No pathologic sized axillary, hilar or mediastinal lymph nodes. UPPER ABDOMEN: No acute findings in the examined upper abdomen. No reflux of contrast into the hepatic veins to suggest elevated right heart pressures. OSSEOUS STRUCTURES: Levoscoliosis of the degenerated lumbar spine. Old compression fracture of T7 vertebral body which is relatively sclerotic compared to the other vertebra that have normal height. IMPRESSION: 1. No evidence of pulmonary embolism. 2. Severe pulmonary emphysema. 3. The esophagus remains distended with gas and a small amount of fluid; this suggests possibility of esophageal dysmotility. 4. New secretions within bilateral lower lobe bronchi and lower lobe opacities from pneumonia and atelectasis. Aspiration pneumonia is possible. Small left pleural effusion has decreased compared to 12/19/2016. Assessment/Plan Assessment: 76-year-old female with a past medical history of COPD on 1.5-2 L of oxygen at home, atrial fibrillation on Eliquis, left lung cancer status post radiation in September 2015, anxiety, depression, osteoporosis presents to the ED status post unwitnessed fall. Vitals at the time of admission blood pressure 165/81, respiratory rate of 24, tachycardic to 120, afebrile saturating 91% on 3 L of oxygen via nasal cannula. On physical exam she is a cachectic looking elderly female, was alert and oriented 3 and in mild respiratory distress sitting in bed. HEENT revealed PERRLA, EOMI, dry mucous membranes. Examination of the neck revealed an elevated JVD. Her last exam revealed normal S1, S2, no murmurs appreciated. Auscultation of the chest revealed bilaterally decreased breath sounds. Abdominal exam was benign with abdomen soft, nontender, nondistended normal bowel sounds in all 4 quadrants. Neurological exam was grossly unremarkable. Examination of the liver extends reveal any edema. Labs were pertinent for leukocytosis with a white blood cell count 19,500, H&H of 13.9/42.0, normal platelet count of 390,000. Serum chemistries revealed a sodium of 137, potassium of 3.6, bicarbonate of 27, anion gap of 11, BUN 12 with a creatinine of 0.6. Serum glucose elevated to 110. LFTs unremarkable with an AST/ALT of 28/44, alkaline phosphatase of 95% first set of troponin positive at 0.34. Head and cervical spine CT was done which was in no acute fracture dislocation of the cervical spine, ectatic left carotid and proximal middle cerebral artery in the suprasellar region with was negative for any intracranial bleed. EKG revealed sinus tachycardia with a heart rate of 120, normal axis, no ST-T changes with a right bundle branch block that is unchanged. Last echo was done in August 2016 which showed normal global left ventricular size, no obvious trauma regional wall motion abnormalities with a left ventricular ejection fraction more than 65%. 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 In the ER she received 10 mg of IV diltiazem 1 and administered aspirin 325 mg orally 1. Assessment and plan #Syncopal episode Most likely secondary to dehydration versus NSTEMI Her orthostats were negative. She was hydrated with IV fluids at 75 MLS per hour for 1 bag No events were observed on telemetry- continues to remain in sinus rhythm Serum prolactin was obtained which ruled out underlying seizure. #Elevated troponins with no EKG changes Msot likely secondary to type II [place] from demand ischemia secondary to tachycardia versus NSTEMI. Continue aspirin 81 mg daily and atorvastatin 80 mg daily. Her troponins trended up from 0.34 to 0.68 to 0.81 to 0.80- 0.74. Echocardiogram revealed stage I diastolic dysfunction Patient is already on diltiazem and has a history of end-stage COPD so will avoid beta blockers. #Sinus tachycardia - Resolved -Her TSH and free T4 were WNL. #COPD Continue on supplemental oxygen whihc is baseline for her Start Prednisone 40mg daily from today TRC nebs Continue Symbicort, Spiriva Continue Mucinex, Claritin 10mg dauly adn nasal saline CXR showed chronic changes with persistent linear perihilar opacity slightly improved. CTA was done which did not show any evidence of PE, hwoever concerning for aspiratioon pneumonia. Continue acapella therapy. Place on aspiartiion precautions. Pulm consult with Dr. Zepeda. F/U recs. Will have her work with PT. She is refusing to go to [facility]. # Hx of Atrial fibrillation She was continued on Cardizem 90 mg daily and Eliquis 2.5 mg twice a day by mouth #Decubitus skin ulcer - 1cm x0.6cm stage II ulcer Present on admssion. Seen by wound care and recs to cleanse right buttock with NS followed by hydrocolloids dressing q3 days and PRN Placed patient in calorie count -Diet Heart healthy DVT prophylaxis On Eliquis 2.5 mg by mouth twice a day CODE STATUS Full code Problem List: 1. ACS (acute coronary syndrome) 2. COPD exacerbation Pain Ratin Pain Location: n/a Pain Goal: Remain pain free Pain Plan: tylenol Tomorrow's Labs & Rationales: bep - today for serum Cr, gievn she received IV contrast CBC - Monitor WBC Consulting Request: Consulting Specialty: Cardiology
[2017-02-05 09:31] LABS: ABSOLUTE BASOPHIL COUNT 0 /CUMM (0.0-0.2); ABSOLUTE EOSINOPHIL COUNT 0 /CUMM (0.0-0.7); ABSOLUTE LYMPH COUNT 0.2 /CUMM (1.2-3.4); BASOPHIL % 0 % (0.0-2.0); EOSINOPHIL % 0 % (0-5); HEMATOCRIT 38.4 % (37-47); MEAN CORPUSCULAR HGB 28.2 PG (27.0-31.0); MEAN CORPUSCULAR HGB CONC 32.5 G/DL (33.0-37.0); MEAN CORPUSCULAR VOLUME 86.6 FL (81.0-99.0); MEAN PLATELET VOLUME 7.4 FL (7.4-10.4); PLATELET COUNT 274 /CUMM (130-400); RBC DISTRIBUTION WIDTH 18.7 % (11.5-14.5); RED BLOOD CELL CT 4.43 /CUMM (4.20-5.40); WHITE BLOOD CELL COUNT 18.2 /CUMM (4.8-10.8)
--- NOTE | 2017-02-05 09:54 | PN- Cardiology ---
Subjective Subjective: The patient is still having issues with breathing intermittently. However she appears less dyspneic than previously. She remains in sinus rhythm with occasional short bursts of brief SVT and some PACs. I did not see any atrial fibrillation on review of her telemetry tracings. Objective Vital Signs and I&Os Vital Signs Date Time Temp Pulse Resp B/P B/P Pulse O2 O2 Flow FiO2 Mean Ox Delivery Rate 02/05 0859 97 Nasal 2.0L Cannula 02/05 0731 97.4 83 18 163/83 96 Nasal Cannula 02/05 0000 94 Nasal 2.0L Cannula 02/04 2157 98.9 85 18 122/70 94 02/04 2031 96 Nasal 2.0L Cannula 02/04 1453 97.8 97 20 104/58 96 Nasal 2.0L Cannula 02/04 1204 94 Nasal 2.0L Cannula Intake & Output 02/05 1600 02/05 0800 02/05 0000 / 1600 02/04 0800 02/04 0000 Intake Total 300 480 800 240 600 Output Total 350 500 Balance -50 -20 800 240 600 Intake, Oral 300 480 800 240 600 Number 1 Bowel Movements Output, Urine 350 500 Physical Exam: She is only in mild respiratory distress and was able to speak in sentences. HEENT exam is normal Chest reveals decreased breath sounds and a few rhonchi but no wheezing Extremities no edema Current Medications: Current Medications Sig/Kirill Start time Last Medication Dose Route Stop Time Status Admin Acetaminophen 650 MG Q4P PRN 01/31 1030 AC PO Albuterol Sulfate 3 ML Q4P PRN 01/31 1715 AC 02/05 INH 0855 Albuterol Sulfate 2 PUF Q4-PRN PRN 01/31 1715 AC INH Apixaban 2.5 MG BID 01/31 2200 AC 02/04 PO 2143 Aspirin 81 MG DAILY 02/01 1000 AC 02/04 PO 0903 Atorvastatin Calcium 80 MG 1700 01/31 1700 AC 02/04 PO 1543 Budesonide/ 2 PUF BID 01/31 1024 AC 02/04 Formoterol Fumarate INH 2143 Diltiazem HCl 90 MG DAILY 01/31 1024 AC 02/04 PO 0905 Fluticasone 2 SPRAY DAILY 01/31 1350 AC 02/02 Propionate MERLE 0908 Guaifenesin 600 MG Q12 02/01 2200 AC 02/04 PO 2143 Guaifenesin/ 10 ML Q6P PRN 02/01 0745 AC 02/04 Dextromethorphan PO 214 Loratadine 10 MG DAILY 02/04 1000 AC 02/04 PO 1110 Lorazepam 0.5 MG BID PRN 02/04 2045 AC 02/04 PO 02/11 Methylprednisolone 40 MG Q12 02/03 2200 DC 02/04 IV 0905 Morphine Sulfate 2 MG Q6P PRN 01/31 1030 AC IV Oxycodone HCl 5 MG Q6 PRN 01/31 1030 AC PO Prednisone 40 MG DAILY 02/05 1000 AC PO Sodium Chloride 2 SPRAY Q4P PRN 02/01 1545 AC 02/04 MERLE 0908 Tiotropium [place] 1 PUF DAILY 01/31 1024 AC 02/04 INH 0907 Results Last 48 Hrs of Labs/Mics: Laboratory Tests 02/05/17 0638: CBC w Diff Pending, WBC Pending, RBC Pending, Hgb Pending, Hct Pending, MCV Pending, MCH Pending, RDW Pending, Plt Count Pending, MPV Pending, Gran % Pending, Lymphocytes % Pending, Monocytes % Pending, Eosinophils % Pending, Basophils % Pending, Absolute Granulocytes Pending, Absolute Lymphocytes Pending , Absolute Monocytes Pending, Absolute Eosinophils Pending, Absolute Basophils Pending, PUBS MCHC Pending 02/04/17 0835: CBC w Diff NO MAN DIFF REQ, RBC 4.40, MCV 86.8, MCH 28.2, RDW 19.0 H, MPV 7.6, Gran % 94.7 H, Lymphocytes % 1.0 L, Monocytes % 4.3, Eosinophils % 0, Basophils % 0 L, Absolute Granulocytes 15.2 H, Absolute Lymphocytes 0.2 L, Absolute Monocytes 0.7 H, Absolute Eosinophils 0, Absolute Basophils 0, PUBS MCHC 32.5 L Assessment/Plan Assessment/Plan The patient has had a small non-ST elevation myocardial infarction. Fortunately she is not in congestive heart failure. She remains in sinus rhythm with some ectopy but no atrial fibrillation. Her main complaints are respiratory. There is no obvious explanation for her syncopal episode. It was most likely vasovagal or postural. I recommend just continued monitoring and respiratory treatments. We can continue monitoring because of the risk for atrial fibrillation but hopefully she will remain in sinus rhythm. From a cardiac standpoint she can be discharged when her respiratory status is back to baseline. Continue telemetry? Yes
[2017-02-05 10:07] LABS: GRANULOCYTE % 93.3 % (42.2-75.2)
--- NOTE | 2017-02-05 11:10 | PN- Att Addend ---
Attending Addendum Attending Brief Note Patient in bed still short of breath, is still complaining she cannot bring up the sputum despite [place] treatments, also very nervous afraid maybe depressed vital signs are stable no fever, no major changes on physical. Patient refused PT evaluation earlier this morning also not agreeable at this time for short- term rehabilitation. Would have a psych evaluation, and also PT will try again later on to see the patient also check with pulmonary to see if there is any other treatments to loosen up her secretions Current Medications Sig/Kirill Start time Last Medication Dose Route Stop Time Status Admin Acetaminophen 650 MG Q4P PRN 01/31 1030 AC PO Acetylcysteine 2 ML BID 02/05 1052 AC INH Albuterol Sulfate 3 ML Q4P PRN 01/31 1715 AC 02/05 INH 0855 Albuterol Sulfate 2 PUF Q4-PRN PRN 01/31 1715 AC INH Apixaban 2.5 MG BID 01/31 2200 AC 02/05 PO 1029 Aspirin 81 MG DAILY 02/01 1000 AC 02/05 PO 1029 Atorvastatin Calcium 80 MG 1700 01/31 1700 AC 02/04 PO 1543 Budesonide/ 2 PUF BID 01/31 1024 AC 02/05 Formoterol Fumarate INH 1032 Diltiazem HCl 90 MG DAILY 01/31 1024 AC 02/05 PO 1029 Fluticasone 2 SPRAY DAILY 01/31 1350 AC 02/02 Propionate MERLE 0908 Guaifenesin 600 MG Q12 02/01 2200 AC 02/05 PO 1029 Guaifenesin/ 10 ML Q6P PRN 02/01 0745 AC 02/04 Dextromethorphan PO 2143 Loratadine 10 MG DAILY 02/04 1000 AC 02/05 PO 1029 Lorazepam 0.25 MG BID PRN 02/05 1047 AC PO 02/12 1046 Lorazepam 0.5 MG BID PRN 02/04 2045 DC 07 PO 02/11 2044 2143 Methylprednisolone 40 MG Q12 02/03 2200 DC 02/04 IV 0905 Morphine Sulfate 2 MG Q6P PRN 01/31 1030 AC IV Oxycodone HCl 5 MG Q6 PRN 01/31 1030 AC PO Prednisone 40 MG DAILY 02/05 1000 AC 02/05 PO 1029 Sodium Chloride 2 SPRAY Q4P PRN 02/01 1545 AC 02/05 MERLE 1033 Tiotropium [place] 1 PUF DAILY 01/31 1024 AC 02/05 INH 1032 Laboratory Tests 02/05/17 0638: CBC w Diff NO MAN DIFF REQ, RBC 4.43, MCV 86.6, MCH 28.2, RDW 18.7 H, MPV 7.4, Gran % 93.3 H, Lymphocytes % 1.1 L, Monocytes % 5.6, Eosinophils % 0, Basophils % 0 L, Absolute Granulocytes 17.0 H, Absolute Lymphocytes 0.2 L, Absolute Monocytes 1.0 H, Absolute Eosinophils 0, Absolute Basophils 0, PUBS MCHC 32.5 L Microbiology 02/05 847 LOWER RESP: Respiratory Culture - COLB 02/05 847 LOWER RESP: Gram Stain - COLB Microbiology Date/Time Procedure - Status Source Growth 02/05 847 Respiratory Culture - COLB LOWER RESP 02/05 847 Gram Stain - COLB LOWER RESP Vital Signs Date Time Temp Pulse Resp B/P B/P Pulse O2 O2 Flow FiO2 Mean Ox Delivery Rate 02/05 1029 83 163/83 02/05 0859 97 Nasal 2.0L Cannula 02/05 0731 97.4 83 18 163/83 96 Nasal Cannula Also cut down her benzodiazepine is making her very sleepy.
--- NOTE | 2017-02-05 13:42 | Cons- Psychiatry ---
Psychiatric Consult Date of Consult: 02/05/17 Reason for Consult: Depression Dr. Gallagher attending History of Present Illness: Identifying Info: 76-year-old female who resides in [place] with her son presents to [facility] emergency department on 12/28/2016 with shortness of breath. Admitted to medicine for observation to COPD exacerbation. CC: "I'm having a day" HPI: Patient has difficulty fully participating in interview due to dyspnea. She reports she is continuing to experience poor mood related to "constantly being in and out of the hospital. Its too long too much I don't have enough time to pull myself out of it." The patient has been experiencing several issues related to her breathing for many years. She felt she used to be able to deal with it well however when she was diagnosed with cancer lung 2-1/2 years ago it became too much for her. She has been hospitalized at [facility] 5 times in the past year. Most recently 1 month ago. A few months ago she was started on medication for a benefit that contributed to her poor mood since that time she has had poor appetite and has been losing weight. She relies very heavily on her son to take care of her. She feels guilt for this. She is socially isolated. She would like to go [facility] however she cannot afford transportation. At present she declines psychotropics stating she had medication, she could not recall which, a few nights ago that made her confused and hallucinate. This appears to have been ativan 0.5mg which she recieved 2 doses of 2 nights ago. This has resolved but she is very shaken by the experience. On previous evaluation by consult psychiatry on last admission it was recommended that the patient start mirtazapine to help with weight loss, sleep, mood and anxiety. It does not appear that she started this medication and she would not like to take it currently due to fear of again becoming confused. PMH: Please see the H&P for a complete listing Atrial fibrillation on Eliquis, COPD on 1.5-2 L home oxygen, anxiety, lung cancer status post radiation Past Psych History: -Outpatient Previously Cancer support group at [facility] -Inpatient None Family Psych History: Son - Unspecified anxiety d/o, attended [facility] Substance History No tobacco since 2002 1-2 glasses of wine daily when she feels physically well, sometimes a shot of vodka -Treatment None Family Substance History: Denies Social: Born in [place], raised in [place], 1 of 3 girls. with 2 living sons, one of whom lives with her in [place]. [employer] school graduate. Previously worked at [employer] and [employer] in . Abuse/Trauma: Did not obtain. Current Home Psychotropic Medications: Xanax 0.25mg PRN anxiety, pt reports she does not take this regularly Current Hospital Psychotropic Medications: Med Lorazepam 0.25 MG PO BID PRN 02/05/17 1047 Allergies: Coded Allergies: levofloxacin (Mild, LEGS [place] TIGHT 12/17/16) amoxicillin (ANAPHYLAXIS 12/17/16) clarithromycin (UNKNOWN - PT DOESNT REMEMBER WAS TOLD BY NOT TO TAKE 12/17/16 ) doxycycline (GI UPSET 12/28/16) Current Medications: Current Medications Sig/Kirill Start time Last Medication Dose Route Stop Time Status Admin Acetaminophen 650 MG Q4P PRN 01/31 1030 AC PO Acetylcysteine 2 ML BID 02/05 1052 AC INH Albuterol Sulfate 3 ML Q4P PRN 01/31 1715 AC 02/05 INH 0855 Albuterol Sulfate 2 PUF Q4-PRN PRN 01/31 1715 AC INH Apixaban 2.5 MG BID 01/31 2200 AC 02/05 PO 1029 Aspirin 81 MG DAILY 02/01 1000 AC 02/05 PO 1029 Atorvastatin Calcium 80 MG 1700 01/31 1700 AC 02/04 PO 1543 Budesonide/ 2 PUF BID 01/31 1024 AC 02/05 Formoterol Fumarate INH 1032 Diltiazem HCl 90 MG DAILY 01/31 1024 AC 02/05 PO 1029 Fluticasone 2 SPRAY DAILY 01/31 1350 AC 02/02 Propionate MERLE 0908 Guaifenesin 600 MG Q12 02/01 2200 AC 02/05 PO 1029 Guaifenesin/ 10 ML Q6P PRN 02/01 0745 AC 02/04 Dextromethorphan PO 2143 Loratadine 10 MG DAILY 02/04 1000 AC 02/05 PO 1029 Lorazepam 0.25 MG BID PRN 02/05 1047 AC PO 02/12 1046 Lorazepam 0.5 MG BID PRN 02/04 2045 DC 02/04 PO 02/12 2044 2143 Methylprednisolone 40 MG Q12 02/03 2200 DC 02/04 IV 0905 Morphine Sulfate 2 MG Q6P PRN 01/31 1030 AC IV Oxycodone HCl 5 MG Q6 PRN 01/31 1030 AC PO Prednisone 40 MG DAILY 02/05 1000 AC 02/05 PO 1029 Sodium Chloride 2 SPRAY Q4P PRN 02/01 1545 AC 02/05 MERLE 1033 Tiotropium [place] 1 PUF DAILY 01/31 1024 AC 02/05 INH 1032 Past History Past Medical History Neurological: NONE EENT: allergies, POST NASAL DRIP Cardiovascular: AFIB Respiratory: COPD, emphysema, pneumonia, 1.5-2L NC DEP @ HOME Gastrointestinal: NONE Hepatic: NONE Renal: NONE Musculoskeletal: osteoporosis Psychiatric: anxiety, depression Endocrine: NONE Blood Disorders: NONE Cancer(s): LEFT 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 CANCER S/P 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/Reproductive: NONE Past Surgical History Surgical History: appendectomy, TONSILLECTOMY HYSTERECTOMY STAPH INFECTION IN COLLAR BONE CLEANED Psychosocial History Strengths/Capabilities: [place] motivated, supportive family Physical Limitations (Interventions): COPD Psychiatric Treatment History Psych Treatment Psychiatric Treatment No Diagnosis: None Risk Factors: age (under 24/over 65), chronic/serious med cond., high anxiety/ distress Substance Use/Abuse History Drug Use/Abuse Substances Used/Abused No Substance Abuse Treatment Substance Abuse Treatment Past Substance Abuse [place] No Assessment/Plan Mental Status Mental Status Exam: Mental Status Exam Presentation/Appearance: Cooperative with evaluation. Hospital garb. Orientation: Grossly oriented Sensorium: Awake and alert Eye contact: Appropriate Affect: Blunted, congruent Mood: "Disgusted" Depression: Denies Anxiety: Denies Thought Content: - Denies SI/HI, AH/VH, PI. States and also believes they will not kill themselves. - Denies Hopeless/Helpless Thoughts Thought Process: Associations: Speech: Repetitive, patient often repeats her self, somewhat dysarthric Language: Judgment: Insight: Poor Cognition: Memory: Grossly intact Attention/Concentration: Grossly intact Fund of Knowledge: Adequate Abstractions: Did not assess MMSE: Did not assess Brief ROS Gait: Reports unsteady Sleep: Poor Appetite: Poor Energy: Low IADLs/ADLs: With assist presently Lab Results: Laboratory Tests 02/05/17 0638: CBC w Diff NO MAN DIFF REQ, RBC 4.43, MCV 86.6, MCH 28.2, RDW 18.7 H, MPV 7.4, Gran % 93.3 H, Lymphocytes % 1.1 L, Monocytes % 5.6, Eosinophils % 0, Basophils % 0 L, Absolute Granulocytes 17.0 H, Absolute Lymphocytes 0.2 L, Absolute Monocytes 1.0 H, Absolute Eosinophils 0, Absolute Basophils 0, PUBS MCHC 32.5 L 02/04/17 0835: CBC w Diff NO MAN DIFF REQ, RBC 4.40, MCV 86.8, MCH 28.2, RDW 19.0 H, MPV 7.6, Gran % 94.7 H, Lymphocytes % 1.0 L, Monocytes % 4.3, Eosinophils % 0, Basophils % 0 L, Absolute Granulocytes 15.2 H, Absolute Lymphocytes 0.2 L, Absolute Monocytes 0.7 H, Absolute Eosinophils 0, Absolute Basophils 0, PUBS MCHC 32.5 L 02/03/17 0705: Anion Gap 9, Estimated GFR > 60, BUN/Creatinine Ratio 28.6 H, CBC w Diff NO MAN DIFF REQ, RBC 4.36, MCV 87.3, MCH 28.4, RDW 19.0 H, MPV 7.4, Gran % 95.5 H, Lymphocytes % 1.2 L, Monocytes % 3.3, Eosinophils % 0, Basophils % 0 L, Absolute Granulocytes 16.2 H, Absolute Lymphocytes 0.2 L, Absolute Monocytes 0.6, Absolute Eosinophils 0, Absolute Basophils 0, PUBS MCHC 32.5 L Microbiology 02/05 847 LOWER RESP: Respiratory Culture - COLB 02/05 847 LOWER RESP: Gram Stain - COLB 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 This has been an ongoing problem since her cancer diagnosis 2-1/2 years ago. At present patient continues to be agreeable to participating in support groups and group therapy which she would greatly benefit from. However due to lack of transportation and guilt about feeling like a burden on her son she is not engaged in the services. Additionally she would likely benefit from an antidepressant medication but she would not like to try one at this time. Additionally this patient also experienced an acute confusional episode during this hospitalization likely attributable to receiving 1 mg of Ativan in one evening. It would be prudent to limit potential delirium triggers as much as possible. Provisional Treatment Plan: 1. We will continue to engage this patient and encouraged her to consider medication and pursuing services. If is agreeable we will facilitate intake appointment at [facility] outpatient psychiatric services. 2. Appreciate social work and case management assistance in identifying affordable transportation for this patient. 3. Please continue to avoid benzodiazepines, opioid analgesics, and meds with strong anticholinergic properties as much as possible to prevent further confusion. Would not exceed current Ativan dosing without extreme caution. 4. Please initiate the following nonpharmacologic interventions: -Avoid nursing and medical procedures during sleep hours whenever possible - Cluster at night interventions that must be completed as much as possible to minimize sleep disruption - Decrease noise patient area during sleeping hours - Reduce lighting at night - Ensure patient has any sensory aids close by that she regularly uses 5. Consider melatonin 10 mg daily at bedtime. 6. Please include the following in her discharge instructions: - "Return to [facility] ([facility] [place] [facility]) held every first and sunday of the month from 6:30 - 8:00 PM in the [facility] dining room. Call [phone] for more information." - "If you would like to participate in psychotherapy groups at [facility] please call [phone] to arrange for an intake appointment." - "Consider participating in events at the [facility] located at [address] [place] [address]. Please call [phone] for more information." Thank you for including psychiatry in this case we'll continue to follow. A total of 60 minutes was spent with the patient with more than 50% of the time spent in counseling and/or coordination of care.
[2017-02-05 15:13] VITALS: BP 116/66
--- NOTE | 2017-02-05 15:23 | Patient Discharge Instructions ---
Discharge Instructions General Discharge Information You were seen/treated for: - NSTEMI - Syncope - Acute COPD EXACERBATION - Depression Special Instructions: Please follow with the primary care physician within one week of discharge. Please follow-up with your computer forensic specialist Dr. Zepeda within 2 weeks of discharge. Please follow-up with psychiatry within a week of discharge. Please follow-up with your prop maker within one week - "Return to [facility] ([facility]) held every and sunday of the month from 6:30 - 8:00 PM in the [facility] dining room. Call [phone] for more information." - "If you would like to participate in psychotherapy groups at [facility] please call [phone] to arrange for an intake appointment." - "Consider participating in events at the [facility] located at [address] [place] [address]. Please call [phone] for more information." Diet Recommended Diet: Heart Healthy Activity Activity Self Limited: Yes Acute Coronary Syndrome Inclusion Criteria At DC or during hospital stay patient has or had the following: ACS DIAGNOSIS No Discharge Core Measures Meds if any: Prescribed or Continued at Discharge Meds if any: NOT Prescribed or Continued at Discharge Congestive Heart Failure Inclusion Criteria At DC or during hospital stay patient has or had the following: CHF DIAGNOSIS No Discharge Core Measures Meds if any: Prescribed or Continued at Discharge Meds if any: NOT Prescribed or Continued at Discharge Cerebrovascular accident Inclusion Criteria At DC or during hospital stay patient has or had the following: CVA/TIA Diagnosis No Discharge Core Measures Meds if any: Prescribed or Continued at Discharge Meds if any: NOT Prescribed or Continued at Discharge Venous thromboembolism Inclusion Criteria VTE Diagnosis No VTE Type NONE VTE Confirmed by (Test) NONE Discharge Core Measures - Per Current guidelines, there needs to be overlap - treatment for the first 5 days of Warfarin therapy. - If discharged on Warfarin prior to 5 days of - overlap therapy, the patient will need to be - assessed for post discharge needs including - *Post discharge parental anticoagulation - *Warfarin and/or parental anticoagulation education - *Follow up date to check INR post discharge At least 5 days overlap therapy as Inpatient No Meds if any: Prescribed or Continued at Discharge Note: Overlap Therapy is Warfarin and Anticoagulant Meds if any: NOT Prescribed or Continued at Discharge
[2017-02-05 23:23] VITALS: BP 118/62
[2017-02-06 06:54] VITALS: BP 112/70
--- NOTE | 2017-02-06 07:42 | PN- Housestaff ---
Subjective Follow-up For: - NSTEMI - End satge COPD on 1.5 L of oxygen at home - Atrial fibrillation on Eliquis - Acute SOB Subjective: Patient seen and examined at bedside. She states her breathing is the smae, and that she is coughing a lot. Review of Systems Constitutional: Reports: weakness. Denies: chills, fever. EENTM: Denies: visual changes. Cardiovascular: Denies: chest pain, palpitations. Respiratory: Reports: cough, short of breath, sputum production. Denies: orthopnea, wheezing. Gastrointestinal: Denies: abdominal pain, diarrhea, nausea, vomiting. Genitourinary: Reports: no symptoms. Musculoskeletal: Denies: back pain. Neurological/Psychological: Denies: headache, numbness, tingling, tremors. Objective Last 24 Hrs of Vital Signs/I&O Vital Signs Date Time Temp Pulse Resp B/P B/P Pulse O2 O2 Flow FiO2 Mean Ox Delivery Rate 02/06 0654 97.9 85 16 112/70 93 Nasal Cannula 02/06 0000 94 Nasal 2.0L Cannula 02/05 2323 98.0 88 16 118/62 92 Nasal Cannula 02/05 2100 92 Nasal 1.5L Cannula 02/05 1600 Nasal 2.0L Cannula 02/05 1513 97.6 120 16 116/66 92 Nasal Cannula 02/05 1326 Nasal 2.0L Cannula 02/05 1321 Nasal 2.0L Cannula 02/05 1029 83 163/83 02/05 0859 97 Nasal 2.0L Cannula 02/05 0800 94 Nasal 2.0L Cannula Intake & Output 02/06 0800 02/06 0000 02/05 1600 Intake Total 100 240 450 Output Total 300 300 950 Balance -200 -60 -500 Intake, Oral 100 240 450 Output, Urine 300 300 950 Physical Exam General Appearance: Alert, Oriented X3, Cooperative HEENT: Atraumatic, PERRLA, EOMI, Mucous Membr. moist/pink Neck: Supple, No JVD Cardiovascular: Normal S1, Normal S2, No Murmurs Lungs: decreased breath sounds bilaterally Abdomen: Normal Bowel Sounds, Soft, No Tenderness Neurological: Normal Speech, Strength at 5/5 X4 Ext, Normal Tone, Sensation Intact, Cranial Nerves 3-12 NL, Reflexes 2+ Current Medications: Current Medications Sig/Kirill Start time Last Medication Dose Route Stop Time Status Admin Acetaminophen 650 MG Q4P PRN 07/05 1030 AC PO Acetylcysteine 2 ML BID 02/05 1052 DC INH Albuterol Sulfate 3 ML BID 02/05 2200 AC 02/05 INH 2100 Albuterol Sulfate 3 ML Q4P PRN 01/31 1715 DC 02/05 INH 0855 Albuterol Sulfate 2 PUF Q4-PRN PRN 01/31 1715 AC INH Apixaban 2.5 MG BID 01/31 2200 AC 02/05 PO 2124 Aspirin 81 MG DAILY 02/01 1000 AC 02/05 PO 1029 Atorvastatin Calcium 80 MG 1700 01/31 1700 AC 02/05 PO 1746 Budesonide/ 2 PUF BID 01/31 1024 AC 02/05 Formoterol Fumarate INH 2124 Diltiazem HCl 90 MG DAILY 01/31 1024 AC 02/05 PO 1029 Fluticasone 2 SPRAY DAILY 01/31 1350 AC 02/02 Propionate MERLE 0908 Guaifenesin 600 MG Q12 02/01 2200 AC 02/05 PO 2124 Guaifenesin/ 10 ML Q6P PRN 02/01 0745 AC 02/04 Dextromethorphan PO 2143 Loratadine 10 MG DAILY 02/04 1000 AC 02/05 PO 1029 Lorazepam 0.25 MG BID PRN 02/05 1047 AC PO 02/12 1046 Lorazepam 0.5 MG BID PRN 02/04 2045 DC 02/04 PO 02/11 2044 2143 Melatonin 10 MG AT BEDTIME 02/05 2200 AC PO Morphine Sulfate 2 MG Q6P PRN 01/31 1030 AC IV Oxycodone HCl 5 MG Q6 PRN 01/31 1030 AC PO Prednisone 40 MG DAILY 02/05 1000 AC 02/05 PO 1029 Sodium Chloride 2 SPRAY Q4P PRN 02/01 1545 AC 02/05 EMRLE 1033 Tiotropium [place] 1 PUF DAILY 01/31 1024 AC 02/05 INH 1032 Last 24 Hrs of Lab/Mannie Results Last 24 Hrs of Labs/Mics: Laboratory Tests 02/06/17 0627: Sodium Pending, Potassium Pending, Chloride Pending, Carbon Dioxide Pending, Anion Gap Pending, BUN Pending, Creatinine Pending, BUN/Creatinine Ratio Pending , CBC w Diff Pending, WBC Pending, RBC Pending, Hgb Pending, Hct Pending, MCV Pending, MCH Pending, RDW Pending, Plt Count Pending, MPV Pending, PUBS MCHC Pending 02/05/17 1505: Anion Gap 9, Estimated GFR > 60, BUN/Creatinine Ratio 28.3 H Microbiology 02/05 0847 LOWER RESP: Respiratory Culture - COLB 02/05 847 LOWER RESP: Gram Stain - COLB Assessment/Plan Assessment: 76-year-old female with a past medical history of COPD on 1.5-2 L of oxygen at home, atrial fibrillation on Eliquis, left lung cancer status post radiation in September 2015, anxiety, depression, osteoporosis presents to the ED status post unwitnessed fall. Vitals at the time of admission blood pressure 165/81, respiratory rate of 24, tachycardic to 120, afebrile saturating 91% on 3 L of oxygen via nasal cannula. On physical exam she is a cachectic looking elderly female, was alert and oriented 3 and in mild respiratory distress sitting in bed. HEENT revealed PERRLA, EOMI, dry mucous membranes. Examination of the neck revealed an elevated JVD. Her last exam revealed normal S1, S2, no murmurs appreciated. Auscultation of the chest revealed bilaterally decreased breath sounds. Abdominal exam was benign with abdomen soft, nontender, nondistended normal bowel sounds in all 4 quadrants. Neurological exam was grossly unremarkable. Examination of the liver extends reveal any edema. Labs were pertinent for leukocytosis with a white blood cell count 19,500, H&H of 13.9/42.0, normal platelet count of 390,000. Serum chemistries revealed a sodium of 137, potassium of 3.6, bicarbonate of 27, anion gap of 11, BUN 12 with a creatinine of 0.6. Serum glucose elevated to 110. LFTs unremarkable with an AST/ALT of 28/44, alkaline phosphatase of 95% first set of troponin positive at 0.34. Head and cervical spine CT was done which was in no acute fracture dislocation of the cervical spine, ectatic left carotid and proximal middle cerebral artery in the suprasellar region with was negative for any intracranial bleed. EKG revealed sinus tachycardia with a heart rate of 120, normal axis, no ST-T changes with a right bundle branch block that is unchanged. Last echo was done in August 2016 which showed normal global left ventricular size, no obvious trauma regional wall motion abnormalities with a left ventricular ejection fraction more than 65%. 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 In the ER she received 10 mg of IV diltiazem 1 and administered aspirin 325 mg orally 1. Assessment and plan #Syncopal episode Most likely secondary to dehydration versus NSTEMI Her orthostats were negative. She was hydrated with IV fluids at 75 MLS per hour for 1 bag No events were observed on telemetry- continues to remain in sinus rhythm Serum prolactin was obtained which ruled out underlying seizure. #Elevated troponins with no EKG changes Msot likely secondary to type II HI from demand ischemia secondary to tachycardia versus NSTEMI. Continue aspirin 81 mg daily and atorvastatin 80 mg daily. Her troponins trended up from 0.34 to 0.68 to 0.81 to 0.80- 0.74. Echocardiogram revealed stage I diastolic dysfunction Patient is already on diltiazem and has a history of end-stage COPD so will avoid beta blockers. #Sinus tachycardia - Resolved -Her TSH and free T4 were WNL. #COPD Continue on supplemental oxygen whihc is baseline for her Continue Prednisone 40mg daily with a 3 day taper TRC nebs Continue Symbicort, Spiriva Continue Mucinex, Claritin 10mg dauly adn nasal saline CXR showed chronic changes with persistent linear perihilar opacity slightly improved. CTA was done which did not show any evidence of PE, hwoever concerning for aspiratioon pneumonia. Continue acapella therapy. Place on aspiartiion precautions. Pulm consult with Dr. Zepeda. F/U recs. She is refusing to work with PT despite counselling. # Hx of Atrial fibrillation She was continued on Cardizem 90 mg daily and Eliquis 2.5 mg twice a day by mouth #Decubitus skin ulcer - 1cm x0.6cm stage II ulcer Present on admssion. Seen by wound care and recs to cleanse right buttock with NS followed by hydrocolloids dressing q3 days and PRN Placed patient in calorie count -Diet Heart healthy DVT prophylaxis On Eliquis 2.5 mg by mouth twice a day CODE STATUS Full code Problem List: 1. ACS (acute coronary syndrome) 2. COPD exacerbation Pain Ratin Pain Location: n/a Pain Goal: Remain pain free Pain Plan: tyelnol Tomorrow's Labs & Rationales: na Consulting Request: Consulting Specialty: Cardiology
[2017-02-06 08:31] LABS: ABSOLUTE BASOPHIL COUNT 0 /CUMM (0.0-0.2); ABSOLUTE EOSINOPHIL COUNT 0 /CUMM (0.0-0.7); ABSOLUTE GRANULOCYTE CT 14.1 /CUMM (1.4-6.5); ABSOLUTE LYMPH COUNT 0.3 /CUMM (1.2-3.4); BASOPHIL % 0 % (0.0-2.0); EOSINOPHIL % 0.2 % (0-5); HEMATOCRIT 37.2 % (37-47); MEAN CORPUSCULAR HGB 28.1 PG (27.0-31.0); MEAN CORPUSCULAR HGB CONC 32.6 G/DL (33.0-37.0); MEAN CORPUSCULAR VOLUME 86.2 FL (81.0-99.0); MEAN PLATELET VOLUME 7.4 FL (7.4-10.4); PLATELET COUNT 262 /CUMM (130-400); RBC DISTRIBUTION WIDTH 18.9 % (11.5-14.5); RED BLOOD CELL CT 4.32 /CUMM (4.20-5.40); WHITE BLOOD CELL COUNT 15.4 /CUMM (4.8-10.8)
--- NOTE | 2017-02-06 09:08 | PN- Psychiatry ---
Assessment/Plan Impression: Identifying Info: 76-year-old female who resides in [place] with her son presents to [facility] emergency department on 12/28/2016 with shortness of breath. Admitted to medicine for observation for COPD exacerbation. SUBJECTIVE Patient states "I feel so-so bad" related to her medical issues. Continues to report she'll be willing to participate in groups but is worried about transportation. Somewhat ambivalent about starting mirtazapine but will continue to consider it. Brief ROS Gait: Not observed Sleep: Fair Appetite: Poor OBJECTIVE Mental Status Exam Presentation/Appearance: Cooperative with evaluation. Hospital garb. Orientation: x4 Sensorium: Somnolent but easy to arouse Eye contact: Appropriate Affect: Blunted, congruent Mood: "I feel so so bad" Depression: Endorses r/t medical issues Anxiety: Denies Thought Content: - Denies SI/HI, AH/VH, PI. States and also believes they will not kill themselves. - Denies Hopeless/Helpless Thoughts Thought Process: Linear Associations: Appropriate Speech: Normal to and rate Judgment: Fair Insight: Fair Cognition: Memory: Grossly intact Attention/Concentration: Grossly intact Fund of Knowledge: Adequate Abstractions: Did not assess MMSE: Did not assess Per nursing report patient has been hesitant to participate in care. She requires a great deal of encouragement. ASSESSMENT 76-year-old female presents with depression and anxiety in the context of chronic COPD with multiple recent exacerbations. This has been an ongoing problem since her cancer diagnosis 2-1/2 years ago. At present patient continues to be agreeable to participating in support groups and group therapy which she would greatly benefit from. However due to lack of transportation and guilt about feeling like a burden on her son she is not engaged in the services. She is somewhat more receptive to the idea of psychotropic medication today but would like to wait and consider further. 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 Suggestion: - We will continue to engage this patient and encourage her to consider medication and pursuing outpatient psychitric services. She would be a good candidate for a trial of mirtazepine due to her mood and appetite issues. - Appreciate social work and case management assistance in identifying affordable transportation for this patient. - Please continue to avoid benzodiazepines, opioid analgesics, and meds with strong anticholinergic properties as much as possible to prevent further confusion. Would not exceed current Ativan dosing without extreme caution. - Please continue to plan to include the following in her discharge instructions : - "[facility] to [facility]) held every first and sunday of the month from 6:30 - 8:00 PM in the [facility] dining room. Call [phone] for more information." - "If you would like to participate in psychotherapy groups at [facility] please call [phone] to arrange for an intake appointment." - "Consider participating in events at the [facility] located at [address] [place] [address]. Please call [phone] for more information." Thank you for including psychiatry in this case we'll continue to follow. Subjective Subjective: as above Objective Last 24 Hrs of Vital Signs/I&O Current Medications Sig/Kirill Start time Last Medication Dose Route Stop Time Status Admin Acetaminophen 650 MG Q4P PRN 01/31 1030 AC PO Acetylcysteine 2 ML BID 02/05 1052 DC INH Albuterol Sulfate 3 ML BID 02/05 2200 AC 02/05 INH 2100 Albuterol Sulfate 3 ML Q4P PRN 01/31 1715 DC 02/05 INH 0855 Albuterol Sulfate 2 PUF Q4-PRN PRN 01/31 1715 AC INH Apixaban 2.5 MG BID 01/31 2200 AC 02/05 PO 2124 Aspirin 81 MG DAILY 02/01 1000 AC 02/05 PO 1029 Atorvastatin Calcium 80 MG 1700 01/31 1700 AC 02/05 PO 1746 Budesonide/ 2 PUF BID 01/31 1024 AC 02/05 Formoterol Fumarate INH 2124 Diltiazem HCl 90 MG DAILY 01/31 1024 AC 02/05 PO 1029 Fluticasone 2 SPRAY DAILY 01/31 1350 AC 02/02 Propionate MERLE 0908 Guaifenesin 600 MG Q12 02/01 2200 AC 02/05 PO 2124 Guaifenesin/ 10 ML Q6P PRN 02/01 0745 AC 02/04 Dextromethorphan PO 2143 Loratadine 10 MG DAILY 02/04 1000 AC 02/05 PO 1029 Lorazepam 0.25 MG BID PRN 02/05 1047 AC PO 02/12 1046 Lorazepam 0.5 MG BID PRN 02/04 2045 DC 02/04 PO 02/12 2044 2143 Melatonin 10 MG AT BEDTIME 02/05 2200 AC PO Morphine Sulfate 2 MG Q6P PRN 01/31 1030 AC IV Oxycodone HCl 5 MG Q6 PRN 01/31 1030 AC PO Prednisone 40 MG DAILY 02/05 1000 AC 02/05 PO 1029 Sodium Chloride 2 SPRAY Q4P PRN 02/01 1545 AC 02/05 MERLE 1033 Tiotropium [place] 1 PUF DAILY 01/31 1024 AC 02/05 INH 1032 Laboratory Tests 02/06/17 0627: Anion Gap 8, Estimated GFR > 60, BUN/Creatinine Ratio 26.7 H, CBC w Diff Pending, WBC Pending, RBC Pending, Hgb Pending, Hct Pending, MCV Pending, MCH Pending, RDW Pending, Plt Count Pending, MPV Pending, Gran % Pending, Lymphocytes % Pending, Monocytes % Pending, Eosinophils % Pending, Basophils % Pending, Absolute Granulocytes Pending, Absolute Lymphocytes Pending, Absolute Monocytes Pending, Absolute Eosinophils Pending, Absolute Basophils Pending, PUBS MCHC Pending 02/05/17 1505: Anion Gap 9, Estimated GFR > 60, BUN/Creatinine Ratio 28.3 H Vital Signs Date Time Temp Pulse Resp B/P B/P Pulse O2 O2 Flow FiO2 Mean Ox Delivery Rate 02/06 0654 97.9 85 16 112/70 93 Nasal Cannula 02/06 0000 94 Nasal 2.0L Cannula 02/05 2323 98.0 88 16 118/62 92 Nasal Cannula 02/05 2100 92 Nasal 1.5L Cannula 02/05 1600 Nasal 2.0L Cannula 02/05 1513 97.6 120 16 116/66 92 Nasal Cannula 02/05 1326 Nasal 2.0L Cannula 02/05 1321 Nasal 2.0L Cannula 02/05 1029 83 163/83 Intake & Output 02/06 1600 02/06 0800 02/06 0000 Intake Total 100 240 Output Total 300 300 Balance -200 -60 Intake, Oral 100 240 Output, Urine 300 300
[2017-02-06 09:46] LABS: GRANULOCYTE % 91.5 % (42.2-75.2)
--- NOTE | 2017-02-06 10:35 | PN- Pulmonary ---
Subjective HPI/Critical Care Issues: The patient reports feeling worse today. She has not had a morning breathing treatment which usually makes her feel better. She appears anxious. She denies any chest pain, chest pressure, nausea, vomiting, abdominal pain, fever or chills. Objective Current Medications: Current Medications Sig/Kirill Start time Last Medication Dose Route Stop Time Status Admin Acetaminophen 650 MG Q4P PRN 07 1030 AC PO Acetylcysteine 2 ML BID 02/05 1052 DC INH Albuterol Sulfate 3 ML BID 02/05 2200 AC 02/06 INH 1007 Albuterol Sulfate 3 ML Q4P PRN 01/31 1715 DC 02/05 INH 0855 Albuterol Sulfate 2 PUF Q4-PRN PRN 01/31 1715 AC INH Apixaban 2.5 MG BID 01/31 2200 AC 02/05 PO 2124 Aspirin 81 MG DAILY 02/01 1000 AC 02/05 PO 1029 Atorvastatin Calcium 80 MG 1700 01/31 1700 AC 02/05 PO 1746 Budesonide/ 2 PUF BID 01/31 1024 AC 02/05 Formoterol Fumarate INH 2124 Diltiazem HCl 90 MG DAILY 01/31 1024 AC 02/05 PO 1029 Fluticasone 2 SPRAY DAILY 01/31 1350 AC 02/02 Propionate MERLE 0908 Guaifenesin 600 MG Q12 02/01 2200 AC 02/05 PO 2124 Guaifenesin/ 10 ML Q6P PRN 02/01 0745 AC 02/04 Dextromethorphan PO 2143 Loratadine 10 MG DAILY 02/04 1000 AC 02/05 PO 1029 Lorazepam 0.25 MG BID PRN 02/05 1047 AC PO 02/12 1046 Lorazepam 0.5 MG BID PRN 02/04 2045 DC 02/04 PO 02/11 2044 2143 Melatonin 10 MG AT BEDTIME 02/05 2200 AC PO Morphine Sulfate 2 MG Q6P PRN 01/31 1030 AC IV Oxycodone HCl 5 MG Q6 PRN 01/31 1030 AC PO Prednisone 40 MG DAILY 02/05 1000 AC 02/05 PO 1029 Sodium Chloride 2 SPRAY Q4P PRN 02/01 1545 AC 02/05 MERLE 1033 Tiotropium [place] 1 PUF DAILY 01/31 1024 AC 02/05 INH 1032 Vital Signs & I&O Last 24 Hrs of Vitals and I&O: Vital Signs Date Time Temp Pulse Resp B/P B/P Pulse O2 O2 Flow FiO2 Mean Ox Delivery Rate 02/06 0654 97.9 85 16 112/70 93 Nasal Cannula 02/06 0000 94 Nasal 2.0L Cannula 02/05 2323 98.0 88 16 118/62 92 Nasal Cannula 02/05 2100 92 Nasal 1.5L Cannula 02/05 1600 Nasal 2.0L Cannula 02/05 1513 97.6 120 16 116/66 92 Nasal Cannula 02/05 1326 Nasal 2.0L Cannula 02/05 1321 Nasal 2.0L Cannula Intake & Output 02/06 1600 02/06 0800 02/06 0000 Intake Total 100 240 Output Total 300 300 Balance -200 -60 Intake, Oral 100 240 Output, Urine 300 300 Physical Exam General Appearance: alert, awake, anxious, frail and thin, chronically ill Head: atraumatic, normal appearance Eyes: Bilateral: PERRL. Neck: supple Respiratory: very diminished breath sounds, quiet respirations, uses accessory muscules often but not currently in active distress Cardiovascular: regular rate/rhythm (distant heart sounds) Extremities: no edema Skin: intact, normal color, warm/dry Results Last 24 Hrs of Lab Results: Laboratory Tests 02/06/17 0627: Anion Gap 8, Estimated GFR > 60, BUN/Creatinine Ratio 26.7 H, CBC w Diff NO MAN DIFF REQ, RBC 4.32, MCV 86.2, MCH 28.1, RDW 18.9 H, MPV 7.4, Gran % 91.5 H, Lymphocytes % 1.8 L, Monocytes % 6.5, Eosinophils % 0.2, Basophils % 0 L, Absolute Granulocytes 14.1 H, Absolute Lymphocytes 0.3 L, Absolute Monocytes 1.0 H, Absolute Eosinophils 0, Absolute Basophils 0, PUBS MCHC 32.6 L 02/05/17 1505: Anion Gap 9, Estimated GFR > 60, BUN/Creatinine Ratio 28.3 H Impression/Plan Impression/Plan Impression/Plan: 1. Acute on chronic respiratory failure, secondary to end stage COPD. Possible aspiration on CT of the chest noted. 2. NSTEMI. 3. S/P syncope/fall. 4. Chronic sinus congestion. Recommendations: * Prednisone 40 mg daily. Will wean down slowly. * Aspiration precautions. * TRC for nebulizer treatments to continue. * Acapella therapy. * Supplemental oxygen down for saturations around 90-92%. * Claritin 10 mg daily to continue. * Continue nasal sailine. * Continue Symbicort and Spiriva. * Continue Mucinex for mucociliary clearance. * DVT prophylaxis at all times. * Out of bed to chair, increase activity. * Continue all supportive care.
--- NOTE | 2017-02-06 17:22 | PN- Att Addend ---
Attending Addendum Attending Brief Note Patient still states she feels worse now than she ever did, very anxious very negative frightened. Vital signs stable no fever no new changes on physical patient was seen by pulmonary and psychiatry. Patient not doing too much. We' ll keep observation and probably will need intermediate care even though the patient would like to go home 24 TOTALS 02/06 0000 02/05 0000 Intake Total 990 1520 Output Total 1600 500 Balance -610 1020 Intake, Oral 990 1520 Number 1 Bowel Movements Output, Urine 1600 500 Current Medications Sig/Kirill Start time Last Medication Dose Route Stop Time Status Admin Acetaminophen 650 MG Q4P PRN 01/31 1030 AC PO Acetylcysteine 2 ML BID 02/05 1052 DC INH Albuterol Sulfate 3 ML BID 02/05 2200 AC 02/06 INH 1007 Albuterol Sulfate 3 ML Q4P PRN 01/31 1715 DC 02/05 INH 0855 Albuterol Sulfate 2 PUF Q4-PRN PRN 01/31 1715 AC INH Apixaban 2.5 MG BID 01/31 2200 AC 02/06 PO 1155 Aspirin 81 MG DAILY 02/01 1000 AC 02/06 PO 1614 Atorvastatin Calcium 80 MG 1700 01/31 1700 AC 02/05 PO 1746 Budesonide/ 2 PUF BID 01/31 1024 AC 02/06 Formoterol Fumarate INH 1615 Diltiazem HCl 90 MG DAILY 01/31 1024 AC 02/06 PO 1155 Fluticasone 2 SPRAY DAILY 01/31 1350 AC 02/02 Propionate MERLE 0908 Guaifenesin 600 MG Q12 02/01 2200 AC 02/06 PO 1614 Guaifenesin/ 10 ML Q6P PRN 02/01 0745 AC 02/04 Dextromethorphan PO 2143 Loratadine 10 MG DAILY 02/04 1000 AC 02/06 PO 1614 Lorazepam 0.25 MG BID PRN 02/05 1047 AC PO 02/12 1046 Melatonin 10 MG AT BEDTIME 02/05 220 AC PO Mirtazapine 7.5 MG AT BEDTIME 02/06 2200 AC PO Morphine Sulfate 2 MG Q6P PRN 01/31 1030 AC IV Ondansetron HCl 4 MG Q6P PRN 02/06 1100 AC 02/06 IV 1107 Oxycodone HCl 5 MG Q6 PRN 01/31 1030 AC PO Patient Medication 1 ED .STK-MED ONE 02/[address] [facility] ED 02/06 1412 Prednisone 40 MG DAILY 02/05 1000 AC 02/06 PO 1155 Sodium Chloride 2 SPRAY Q4P PRN 02/01 1545 AC 02/05 MERLE 1033 Tiotropium [place] 1 PUF DAILY 01/31 1024 AC 02/06 INH 1156 Laboratory Tests 02/06/17 0627: Anion Gap 8, Estimated GFR > 60, BUN/Creatinine Ratio 26.7 H, CBC w Diff NO MAN DIFF REQ, RBC 4.32, MCV 86.2, MCH 28.1, RDW 18.9 H, MPV 7.4, Gran % 91.5 H, Lymphocytes % 1.8 L, Monocytes % 6.5, Eosinophils % 0.2, Basophils % 0 L, Absolute Granulocytes 14.1 H, Absolute Lymphocytes 0.3 L, Absolute Monocytes 1.0 H, Absolute Eosinophils 0, Absolute Basophils 0, PUBS MCHC 32.6 L 02/05/17 1505: Anion Gap 9, Estimated GFR > 60, BUN/Creatinine Ratio 28.3 H 02/05/17 0638: CBC w Diff NO MAN DIFF REQ, RBC 4.43, MCV 86.6, MCH 28.2, RDW 18.7 H, MPV 7.4, Gran % 93.3 H, Lymphocytes % 1.1 L, Monocytes % 5.6, Eosinophils % 0, Basophils % 0 L, Absolute Granulocytes 17.0 H, Absolute Lymphocytes 0.2 L, Absolute Monocytes 1.0 H, Absolute Eosinophils 0, Absolute Basophils 0, PUBS MCHC 32.5 L
[2017-02-06 22:56] VITALS: BP 116/62
--- NOTE | 2017-02-07 07:25 | Discharge Summary ---
See Addendum Visit Information Visit Dates Admission Date: 01/31/17 Discharge Date: 02/08/17 Hospital Course Course Attending Physician: CHI LEY MD Primary Care Physician: CHI LEY MD Consulting Request: 1 Consulting Specialty: Cardiology Consulting Request: 2 Consulting Specialty: Pulmonary Disease Consulting Request: 3 Consulting Specialty: Psychiatry Hospital Course: 76-year-old female with a past medical history of COPD on 1.5-2 L of oxygen at home, atrial fibrillation on Eliquis, left lung cancer status post radiation in September 2015, anxiety, depression, osteoporosis presents to the ED status post unwitnessed fall. Vitals at the time of admission blood pressure 165/81, respiratory rate of 24, tachycardic to 120, afebrile saturating 91% on 3 L of oxygen via nasal cannula. On physical exam she is a cachectic looking elderly female, was alert and oriented 3 and in mild respiratory distress sitting in bed. HEENT revealed PERRLA, EOMI, dry mucous membranes. Examination of the neck revealed an elevated JVD. Her last exam revealed normal S1, S2, no murmurs appreciated. Auscultation of the chest revealed bilaterally decreased breath sounds. Abdominal exam was benign with abdomen soft, nontender, nondistended normal bowel sounds in all 4 quadrants. Neurological exam was grossly unremarkable. Examination of the liver extends reveal any edema. Labs were pertinent for leukocytosis with a white blood cell count 19,500, H&H of 13.9/42.0, normal platelet count of 390,000. Serum chemistries revealed a sodium of 137, potassium of 3.6, bicarbonate of 27, anion gap of 11, BUN 12 with a creatinine of 0.6. Serum glucose elevated to 110. LFTs unremarkable with an AST/ALT of 28/44, alkaline phosphatase of 95% first set of troponin positive at 0.34. Head and cervical spine CT was done which was in no acute fracture dislocation of the cervical spine, ectatic left carotid and proximal middle cerebral artery in the suprasellar region with was negative for any intracranial bleed. EKG revealed sinus tachycardia with a heart rate of 120, normal axis, no ST-T changes with a right bundle branch block that is unchanged. Last echo was done in August 2016 which showed normal global left ventricular size, no obvious trauma regional wall motion abnormalities with a left ventricular ejection fraction more than 65%. 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 In the ER she received 10 mg of IV diltiazem 1 and administered aspirin 325 mg orally 1. She was admitted to telemetry and the following problems were addressed: #Syncopal episode This was thought to be most likely secondary to dehydration and NSTEMI. Her orthostats were negative. No events were observed on telemetry and she continued to remain in sinus rhythm. Serum prolactin was obtained which ruled out underlying seizure. #Elevated troponins in the setting of no EKG changes This was thought to be secondary to an STEMI versus type II MIs related to her tachycardia . Her troponins trended up from 0.34 to 0.68 to 0.81 to 0.80- 0.74. She was started on aspirin 81 mg daily and atorvastatin 80 mg daily. She was already anticoagulated with Eliquis and so heparin was not started. Of note, she has bad endstage COPD and she was managed medically after being seen by cardiology. An echocardiogram revealed stage I diastolic dysfunction and no regional wall motion abnormalities. Patient is already on diltiazem and has a history of end-stage COPD so was not started on beta blockers. #Sinus tachycardia - At the time of admission, which resolved. Her TSH and free T4 were WNL. During her hospital stay there were multiple instances where she was tachycardic as well as dyspneic. A CTA was done which ruled out pulmonary embolism. #COPD Patient was noted to have very severe shortness of breath with use of accessory muscles. She was started on IV steroids, seen by pulmonary who recommended continuing Symbicort, and Spiriva with addition of Mucinex, Claritin 10mg daily, nasal saline, and acapella therapy. She was subsequently transitioned to oral Prednisone. Patient was very deconditioned and was seen by PT who recommended discharge to [facility] with pulm rehab. # Hx of Atrial fibrillation - She was continued on Cardizem 90 mg daily and Eliquis 2.5 mg twice a day by mouth #Decubitus skin ulcer - 1cm x0.6cm stage II ulcer Present on admssion. She was seen by wound care and recs to cleanse right buttock with NS followed by hydrocolloids dressing q3 days and PRN. She was also placed on calorie count and seen by nutrition. She will benefit from being on Ensure. #Depression Patient did have some baseline depression as well as anxiety. She was evaluated by psychiatry commended starting her on mirtazapine given her decreased by mouth intake. She was also started on Remeron 10 mg at bedtime to aid with sleep. They also recommended avoiding benzodiazepines, opioids indulges 6 and medications with strong anti-cholinergic properties as much as possible to probe went for the confusion. They also recommended cutting down on Ativan to 0.25 mg from 0.5. She is to return to [facility] help a limited [place] [facility] which is held every first and third Sunday of the month from 6:30 to 8:00 p.m. and at [facility] dining room.Call [phone] for more information. She should follow up with psychiatry at short-term rehabilitation. Complications: Please see above Allergies: Coded Allergies: levofloxacin (Mild, LEGS FELT TIGHT 12/17/16) amoxicillin (ANAPHYLAXIS 12/17/16) clarithromycin (UNKNOWN - PT DOESNT REMEMBER WAS TOLD BY MD NOT TO TAKE 12/17/16 ) doxycycline (GI UPSET 12/28/16) Significant Procedures: SERVICE DATE: 01/31/17- EXAM TYPE: RAD - XRY-PORTABLE CHEST XRAY FINDINGS: Severe pulmonary emphysema. Chronic peribronchial thickening at the left hilum, volume loss of the left lung and small left pleural effusion. Correlate for history of radiation therapy to the region of the left hilum. No acute pulmonary consolidation. Cardiac silhouette is normal in size. Mild atherosclerotic calcification of the aortic arch. No acute skeletal findings. Old T7 vertebral compression fracture is noted. IMPRESSION: 1. Severe pulmonary emphysema. 2. Chronic peribronchial thickening at the left hilum with architectural distortion and volume loss, likely secondary to remote radiation therapy to the chest. 3. No evidence of acute pneumonia. 3. Persistent small left pleural effusion SERVICE DATE: 01/31/17 EXAM TYPE: CAT - CT CERV SPINE WO IV CONTRAST; CT HEAD WO IV CONTRAST FINDINGS: No midline shift. No mass effect. There is no hemorrhage. Basal cisterns are patent. Posterior fossa risk grossly within normal limits. Note is made of ectatic left carotid in the subareolar region. A believe this is also the appearance on imaging from PET scan of 06/01/2015. Vascular calcifications are noted. Cervical spine CT. FINDINGS: Axial imaging with coronal and sagittal reformatted images. FINDINGS: Degenerative changes. No evidence for an acute fracture or dislocation. Cannot exclude spinal stenosis. IMPRESSION: Negative acute noncontrast CT of the brain. No acute fracture or dislocation cervical spine. Note is made of ectatic left carotid and proximal middle cerebral artery in the suprasellar region. SERVICE DATE: 02/01/17- EXAM TYPE: RAD - XRY-PORTABLE CHEST XRAY FINDINGS: Emphysema with prominent lucency in the lung apices unchanged compared to prior. There is persistent unchanged decreased volume of the left hemithorax. The opacity in the left perihilar region has slightly decreased Calcified nodules in the right mid to lower lung unchanged. Cardiac silhouette within normal limits aorta unremarkable. Pulmonary vasculature are normal. IMPRESSION: Chronic changes with persistent linear perihilar opacity slightly improved. No evidence for pulmonary vascular congestion. SERVICE DATE: 02/03/17 EXAM TYPE: CAT - CTA CHEST-PULMONARY EMBOLISM FINDINGS: QUALITY OF STUDY/CONTRAST BOLUS: Satisfactory. PULMONARY ARTERIES: No filling defects are identified in the main, lobar or segmental vessels. THORACIC AORTA: There is atherosclerotic calcification of the thoracic aorta without aneurysm or dissection. LUNGS AND PLEURA: Proximal to the vahid, there is mucus along the posterior tracheal wall. There is severe centrilobular and bullous emphysema. Bronchial pompa are chronically thickened in both lungs. There are secretions within bronchi of the anterior and medial segments of the right lower lobe with new areas of consolidation in the posteromedial right lower lobe, suggestive of bronchopneumonia. 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 Atelectasis and/or consolidation within the lingula has markedly decreased compared to 12/19/2016. There are new secretions filling bronchi within the posterior and medial segments of the left lower lobe. The left pleural effusion has decreased compared to 12/19/2016. However, there is persistent peripheral atelectasis/infiltrate within the left lower lobe. MEDIASTINUM: Normal heart size. No pericardial effusion. No evidence of septal bowing or right heart strain. The esophagus is distended with gas and a small amount of fluid, possibility due to esophageal dysmotility. Thyroid gland is atrophied. Small, 0.6 cm hypodense nodule is present in the inferior right thyroid lobe. LYMPHATICS: No pathologic sized axillary, hilar or mediastinal lymph nodes. UPPER ABDOMEN: No acute findings in the examined upper abdomen. No reflux of contrast into the hepatic veins to suggest elevated right heart pressures. OSSEOUS STRUCTURES: Levoscoliosis of the degenerated lumbar spine. Old compression fracture of T7 vertebral body which is relatively sclerotic compared to the other vertebra that have normal height. IMPRESSION: 1. No evidence of pulmonary embolism. 2. Severe pulmonary emphysema. 3. The esophagus remains distended with gas and a small amount of fluid; this suggests possibility of esophageal dysmotility. 4. New secretions within bilateral lower lobe bronchi and lower lobe opacities from pneumonia and atelectasis. Aspiration pneumonia is possible. Small left pleural effusion has decreased compared to 12/19/2016. SERVICE DATE: 02/07/17 EXAM TYPE: RAD - XRY-PORTABLE CHEST XRAY FINDINGS: There is severe emphysema primarily involving both upper lobes. Ill-defined opacities visualized within the lower lobes that may represent a manifestation of subsegmental atelectasis, scar, or consolidation. There is no pleural effusion or pneumothorax. The cardiac silhouette and upper mediastinal contours are normal. No acute osseous finding. IMPRESSION: Severe emphysema. Ill-defined opacities within the lower lobes that may represent a manifestation of subsegmental atelectasis, scar, or consolidative disease. Findings remain essentially unchanged when compared to the CT angiogram of chest from 02/03/2017. Disposition Summary Disposition Principal Diagnosis: Syncopal episode NSTEMI Acute respiratory failure secondary to COPD exacerbation Depression Additional Diagnosis: History of atrial fibrillation on Coumadin Stage II decubitus skin ulcer Discharge Disposition: SNF Discharge Instructions General Discharge Information Code Status: Full Code Patient's Diet: Heart healthy Patient's Activity: As tolerated Follow-Up Instructions/Appts: Please follow with the primary care physician within one week of discharge. Please follow-up with your toppiece chopper Dr. Zepeda within 2 weeks of discharge. Please follow-up with psychiatry within a week of discharge. Please follow-up with your paperhanger apprentice within - "Return to [facility] ([facility] [employer] [place] [facility]) held every first and third Sunday of the month from 6:30 - 8:00 PM in the [facility] dining room. Call [phone] for more information." - "If you would like to participate in psychotherapy groups at [facility] please call [phone] to arrange for an intake appointment." - "Consider participating in events at the [facility] located at [address] [place] [address]. Please call [phone] for more information." Medications at Discharge Discharge Medications: Continue taking these medications: Fluticasone/Salmeterol (Advair 250-50 Diskus) 1 EACH BLST.W.DEV 1 Puff Inhale through mouth TWICE DAILY Instructions: Reason to Stop at ADM: [facility] NEB ORDERS Comments: Last Taken: 12/31/16 Time: 9 AM SYMIBICORT GIVEN SUBSTITUTION Tiotropium [place] (Spiriva) 18 MCG CAP.W.DEV 1 Capsule Inhale through mouth DAILY Instructions: Reason to Stop at ADM: [facility] NEB ORDER Comments: Last Taken: 12/31/16 Time: 0900 Albuterol Sulfate (Albuterol Sulfate) 0.63 MG/3 ML VIAL.NEB 1 Vial Inhale Solution THREE TIMES DAILY Instructions: Reason to Stop at ADM:TR ORDERS Comments: Last Taken: 09/05/16 Time: 11 AM Albuterol Sulfate (Proair Respiclick) 90 MCG AER.POW.BA 2 PUFF Inhale through mouth EVERY 4-6 HOURS as needed for COPD Qty = 1 Instructions: Reason to Stop at ADM: [facility] NEB ORDERS Comments: NOT GIVEN WHILE IN HOSPITAL Apixaban (Eliquis) 2.5 MG TABLET 1 Tablet ORAL TWICE DAILY Qty = 180 Comments: Last Taken: 12/31/16 Time: 1000 Diltiazem HCl (Diltiazem 12HR ER) 90 MG CAP.ER.12H 1 Capsule ORAL DAILY Comments: Last Taken: 12/31/16 Time: 0900 Furosemide (Lasix) 20 MG TABLET 0.5 Tablet ORAL DAILY Qty = 90 Start taking the following new medications: Atorvastatin Calcium (Atorvastatin Calcium) 80 MG TABLET 80 Milligram ORAL 5 PM Qty = 60 No Refills Aspirin (Aspirin*) 81 MG TAB.CHEW 81 Milligram ORAL DAILY Qty = 90 No Refills Loratadine (Loratadine) 10 MG TABLET 10 Milligram ORAL DAILY Qty = 60 No Refills Mirtazapine (Remeron) 15 MG TABLET 7.5 Milligram ORAL AT BEDTIME Qty = 30 No Refills Guaifenesin (Guaifenesin ER) 600 MG TAB.ER.12H 600 Milligram ORAL EVERY 12 HOURS Qty = 90 No Refills Melatonin (Melatonin) 5 MG TABLET 10 Milligram ORAL AT BEDTIME Qty = 90 No Refills Saliva Substitute Combo No.9 (Biotene) 473 ML MOUTHWASH 2 [place] ORAL EVERY 2 HOURS NEEDED as needed for DRY MOUTH Qty = 90 No Refills Lorazepam (Ativan) 0.5 MG TABLET 0.25 Milligram ORAL TWICE DAILY as needed for ANXIETY/INSOMNIA Qty = 90 No Refills Prednisone (Prednisone) 10 MG TABLET 1 Tablet ORAL DAILY Qty = 30 No Refills Instructions: PLEASE SEE DISCHARGE INSTRUCTIONS Comments: 4 TABLETS FOR 3 DAYS 3 TABLETS FOR 3 DAYS 2 TABLETS FOR 3 DAYS 1 TABLET FOR 3 DAYS Copies To: ROHITH CHAMBERS APRN; LÓPEZ CLIFFORD,ZEB Torres; MARRY CLIFFORD,ZEB Morgan; CHI LEY MD Attending Review Statement Documenting Attending: CHI LEY MD
--- NOTE | 2017-02-07 07:25 | PN- Housestaff ---
Subjective Follow-up For: - Acute SOB - NSTEMI - End satge COPD - Atrial fibrillation on [place] Tele-Events Since Last Visit: NSR, HR: 76-82 Subjective: Patient seen and examined at [facility]. She states that she is short of breath which is getting worse. She also endorses coughing and states taht she is bringing up very small amount of phlegm. Of note she remains afebrile, buit was bumped up to 4.0 liters Review of Systems Constitutional: Reports: malaise, weakness. Denies: chills, diaphoresis, fever. EENTM: Denies: visual changes. Cardiovascular: Denies: chest pain, edema, palpitations, peripheral edema. Respiratory: Reports: cough, short of breath, sputum production. Denies: hemoptysis, wheezing. Gastrointestinal: Denies: abdominal pain, constipation, diarrhea, nausea, vomiting. Genitourinary: Reports: no symptoms. Musculoskeletal: Reports: no symptoms. Neurological/Psychological: Denies: headache, numbness, tingling, tremors. Objective Last 24 Hrs of Vital Signs/I&O Vital Signs Date Time Temp Pulse Resp B/P B/P Pulse O2 O2 Flow FiO2 Mean Ox Delivery Rate 02/07 0153 96 Nasal 4.0L Cannula 02/07 0000 Nasal 2.0L Cannula 02/06 2256 97.8 82 20 116/62 93 Nasal 2.0L Cannula 02/06 1845 92 Nasal 2.0L Cannula 02/06 1600 92 Nasal 2.0L Cannula 02/06 1555 Nasal 2.0L Cannula 02/06 1155 138 132/80 02/06 1020 95 Nasal 2.0L Cannula 02/06 0800 94 Nasal 2.0L Cannula Intake & Output 02/07 0800 02/07 0000 02/06 1600 Intake Total 120 260 480 Output Total 500 400 400 Balance -380 -140 80 Intake, Oral 120 260 480 Number 0 Bowel Movements Output, Urine 500 400 400 Physical Exam General Appearance: Alert, Oriented X3, Cooperative, No Acute Distress HEENT: Atraumatic, PERRLA, EOMI, Mucous Membr. moist/pink Neck: Supple, No JVD, No LAD Cardiovascular: Normal S1, Normal S2, No Murmurs Lungs: decreased breath sounds, using accessory muscles Abdomen: Normal Bowel Sounds, Soft, No Tenderness Neurological: Normal Speech, Strength at 5/5 X4 Ext, Normal Tone, Sensation Intact, Cranial Nerves 3-12 NL, Reflexes 2+ Extremities: No Edema Vascular: Normal Pulses, Pulses Symmetrical Current Medications: Current Medications Sig/Kirill Start time Last Medication Dose Route Stop Time Status Admin Acetaminophen 650 MG Q4P PRN 07 1030 AC PO Albuterol Sulfate 3 ML BID 02/05 2200 AC 02/07 INH 0155 Albuterol Sulfate 2 PUF Q4-PRN PRN 01/31 1715 AC 02/07 INH 0612 Apixaban 2.5 MG BID 01/31 2200 AC 02/06 PO 2116 Aspirin 81 MG DAILY 02/01 1000 AC 02/06 PO 1614 Atorvastatin Calcium 80 MG 1700 01/31 1700 AC 02/06 PO 2116 Budesonide/ 2 PUF BID 01/31 1024 AC 02/06 Formoterol Fumarate INH 2126 Diltiazem HCl 90 MG DAILY 01/31 1024 AC 02/06 PO 1155 Fluticasone 2 SPRAY DAILY 01/31 1350 AC 02/02 Propionate MERLE 0908 Guaifenesin 600 MG Q12 02/01 2200 AC 02/06 PO 2116 Guaifenesin/ 10 ML Q6P PRN 02/01 0745 AC 02/04 Dextromethorphan PO 2143 Loratadine 10 MG DAILY 02/04 1000 AC 02/06 PO 1614 Lorazepam 0.25 MG BID PRN 02/05 1047 AC PO 02/12 1046 Melatonin 10 MG AT BEDTIME 02/05 2200 AC PO Mirtazapine 7.5 MG AT BEDTIME 02/06 2200 AC PO Morphine Sulfate 2 MG Q6P PRN 01/31 1030 AC IV Ondansetron HCl 4 MG Q6P PRN 02/06 1100 AC 02/06 IV 1107 Oxycodone HCl 5 MG Q6 PRN 01/31 1030 AC PO Patient Medication 1 ED .STK-MED ONE 02/06 1411 CO Teaching ED 02/06 1412 Prednisone 40 MG DAILY 02/05 1000 AC 02/06 PO 1155 Sodium Chloride 2 SPRAY Q4P PRN 02/01 1545 AC 02/05 MERLE 1033 Tiotropium [place] 1 PUF DAILY 01/31 1024 AC 02/06 INH 1156 Last 24 Hrs of Lab/Mannie Results Last 24 Hrs of Labs/Mics: Laboratory Tests 02/07/17 1210: pH 7.47 H, pCO2 40, pO2 74 L, HCO3 28, ABG O2 Sat (Measured) 93.0 L, Carboxyhemoglobin 1.7, O2 Concentration % 4L, O2 Delivery Method N/C, Phlebotomy Draw Site RIGHT RADIAL Assessment/Plan Assessment: 76-year-old female with a past medical history of COPD on 1.5-2 L of oxygen at home, atrial fibrillation on Eliquis, left lung cancer status post radiation in September 2015, anxiety, depression, osteoporosis presents to the ED status post unwitnessed fall. Vitals at the time of admission blood pressure 165/81, respiratory rate of 24, tachycardic to 120, afebrile saturating 91% on 3 L of oxygen via nasal cannula. On physical exam she is a cachectic looking elderly female, was alert and oriented 3 and in mild respiratory distress sitting in bed. HEENT revealed PERRLA, EOMI, dry mucous membranes. Examination of the neck revealed an elevated JVD. Her last exam revealed normal S1, S2, no murmurs appreciated. Auscultation of the chest revealed bilaterally decreased breath sounds. Abdominal exam was benign with abdomen soft, nontender, nondistended normal bowel sounds in all 4 quadrants. Neurological exam was grossly unremarkable. Examination of the liver extends reveal any edema. Labs were pertinent for leukocytosis with a white blood cell count 19,500, H&H of 13.9/42.0, normal platelet count of 390,000. Serum chemistries revealed a sodium of 137, potassium of 3.6, bicarbonate of 27, anion gap of 11, BUN 12 with a creatinine of 0.6. Serum glucose elevated to 110. LFTs unremarkable with an AST/ALT of 28/44, alkaline phosphatase of 95% first set of troponin positive at 0.34. Head and cervical spine CT was done which was in no acute fracture dislocation of the cervical spine, ectatic left carotid and proximal middle cerebral artery in the suprasellar region with was negative for any intracranial bleed. EKG revealed sinus tachycardia with a heart rate of 120, normal axis, no ST-T changes with a right bundle branch block that is unchanged. Last echo was done in August 2016 which showed normal global left ventricular size, no obvious trauma regional wall motion abnormalities with a left ventricular ejection fraction more than 65%. 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 In the ER she received 10 mg of IV diltiazem 1 and administered aspirin 325 mg orally 1. Assessment and plan #Syncopal episode Most likely secondary to dehydration versus NSTEMI. Her orthostats were negative. No events were observed on telemetry- continues to remain in sinus rhythm. Serum prolactin was obtained which ruled out underlying seizure. #Elevated troponins with no EKG changes Msot likely secondary to type II NE from demand ischemia secondary to tachycardia versus NSTEMI. Continue aspirin 81 mg daily and atorvastatin 80 mg daily. Ofnote, her troponins trended up from 0.34 to 0.68 to 0.81 to 0.80- 0.74. Echocardiogram revealed stage I diastolic dysfunction. Patient is already on diltiazem and has a history of end-stage COPD so will avoid beta blockers. #Sinus tachycardia - Resolved. Her TSH and free T4 were WNL. #COPD Continue on supplemental oxygen to maintain sats > 90% Give her a dose of IV Solumedrol 60mg X1, and continue Prednisone 40mg daily with a slow day taper TRC nebs. Will obtain a CXR to r/o any acute infectious process. Continue Symbicort, Spiriva Continue Mucinex, Claritin 10mg dauly adn nasal saline CTA was done which did not show any evidence of PE, hwoever concerning for aspiratioon pneumonia. Continue acapella therapy. Continue aspiration precautions. Pulm consult with Dr. Zepeda. F/U recs. Continue to work with PT for final discharge to [facility] with pulm rehab nce stable from respiratory stand point. # Hx of Atrial fibrillation She was continued on Cardizem 90 mg daily and Eliquis 2.5 mg twice a day by mouth #Decubitus skin ulcer - 1cm x0.6cm stage II ulcer Present on admssion. Seen by wound care and recs to cleanse right buttock with NS followed by hydrocolloids dressing q3 days and PRN Placed patient in calorie count - will benefit form being on Ensure. -Diet Heart healthy DVT prophylaxis On Eliquis 2.5 mg by mouth twice a day CODE STATUS Full code Problem List: 1. COPD exacerbation 2. ACS (acute coronary syndrome) Pain Ratin Pain Location: n/a Pain Goal: Remain pain free Pain Plan: tyelnol Tomorrow's Labs & Rationales: cbc - KELOTN bep - Lukas Consulting Request: Consulting Specialty: Cardiology
[2017-02-07 07:28] VITALS: BP 120/60
--- NOTE | 2017-02-07 10:30 | PN- Pulmonary ---
KANA CLIFFORD,[facility] 02/07/17 1017: Subjective HPI/Critical Care Issues: Afebrile and leukocytosis on steroid. Patient looks anxious with a heart rate of 110. She is using abdominal and accessory muscles to help breathing. She saturating 88 even though oxygen was increased this morning to 4 L NC. The patient is breathing through the mouth and she gets short of breath when she closed her mouth. She still reports dry cough which is at baseline as per the patient. Patient reported feeling fatigued but denies chest pain, chest pressure, nausea, vomiting, abdominal pain, fever or chills Of note: During examining the patient she stayed I am so scared I think I'm dying, she then started to be severely anxious and started to cry. Objective Current Medications: Current Medications Sig/Kirill Start time Last Medication Dose Route Stop Time Status Admin Acetaminophen 650 MG Q4P PRN 01/31 1030 AC PO Albuterol Sulfate 3 ML BID 02/05 2200 AC 02/07 INH 0818 Albuterol Sulfate 2 PUF Q4-PRN PRN 01/31 1715 AC 02/07 INH 0612 Apixaban 2.5 MG BID 01/31 2200 AC 02/07 PO 0957 Aspirin 81 MG DAILY 02/01 1000 AC 02/07 PO 0957 Atorvastatin Calcium 80 MG 1700 01/31 1700 AC 02/06 PO 2116 Budesonide/ 2 PUF BID 01/31 1024 AC 02/07 Formoterol Fumarate INH 0957 Diltiazem HCl 90 MG DAILY 01/31 1024 AC 02/07 PO 0957 Fluticasone 2 SPRAY DAILY 01/31 1350 AC 02/07 Propionate MERLE 0958 Glycerin 2 SPRAY Q2P PRN 02/07 0945 AC PO Guaifenesin 600 MG Q12 02/01 2200 AC 02/07 PO 0956 Guaifenesin/ 10 ML Q6P PRN 02/01 0745 AC 02/04 Dextromethorphan PO 2143 Loratadine 10 MG DAILY 02/04 1000 AC 02/07 PO 0957 Lorazepam 0.25 MG BID PRN 02/05 1047 AC 02/07 PO 02/12 1046 1007 Melatonin 10 MG AT BEDTIME 02/05 2200 AC PO Mirtazapine 7.5 MG AT BEDTIME 02/06 2200 AC PO Morphine Sulfate 2 MG Q6P PRN 01/31 1030 AC IV Ondansetron HCl 4 MG Q6P PRN 02/06 1100 AC 02/06 IV 1107 Oxycodone HCl 5 MG Q6 PRN 01/31 1030 AC PO Patient Medication 1 ED .STK-MED ONE 02/06 1411 VT Teaching ED 02/06 1412 Prednisone 40 MG DAILY 02/05 1000 AC 02/07 PO 0956 Sodium Chloride 2 SPRAY Q4P PRN 02/01 1545 AC 02/05 MERLE 1033 Tiotropium [place] 1 PUF DAILY 01/31 1024 AC 02/07 INH 0957 Vital Signs & I&O Last 24 Hrs of Vitals and I&O: Vital Signs Date Time Temp Pulse Resp B/P B/P Pulse O2 O2 Flow FiO2 Mean Ox Delivery Rate 02/07 0957 80 120/60 02/07 0820 92 Nasal 4.0L Cannula 02/07 0800 92 Nasal 4.0L Cannula 02/07 0728 97.8 80 20 120/60 95 Nasal 3.0L Cannula 02/07 0153 96 Nasal 4.0L Cannula 02/07 0000 Nasal 2.0L Cannula 02/06 2256 97.8 82 20 116/62 93 Nasal 2.0L Cannula 02/06 1845 92 Nasal 2.0L Cannula 02/06 1600 92 Nasal 2.0L Cannula 02/06 1555 Nasal 2.0L Cannula 02/06 1155 138 132/80 Intake & Output 02/07 1600 /12 0800 02/07 0000 Intake Total 120 260 Output Total 500 400 Balance -380 -140 Intake, Oral 120 260 Output, Urine 500 400 Exam General Appearance: alert, awake, anxious Head: atraumatic, normal appearance Ears, Nose, Throat: normal pharynx, hearing grossly normal Respiratory: Diminished air entry all over. No wheezing, rhonchi or crackles, Using accessory muscle to breath Cardiovascular: regular rate/rhythm, tachycardia Abdomen: soft, non-tender Extremities: No edema Neurologic/Psychiatric: awake, alert, oriented x 3 Impression/Plan Impression/Plan Impression/Plan: 1. Acute on chronic respiratory failure, secondary to end stage COPD. Possible aspiration on CT of the chest noted. 2. NSTEMI. 3. S/P syncope/fall. 4. Chronic sinus congestion. Recommendations: * Patient is not stable for discharge today. * Continue Prednisone 40 mg daily * Give one time 60 mg Solu-Medrol IV * The chest x-ray * ABG * EKG(heart rate is in 120s) * Aspiration precautions. * Continue TRC for nebulizer treatments to continue. * Continue Acapella therapy. * Supplemental oxygen, saturations goal is around 90-92%. * Continue Claritin 10 mg daily to continue. * Continue Symbicort and Spiriva. * Continue Mucinex for mucociliary clearance. * DVT prophylaxis at all times. * Encourage out of bed to chair and increase activity. * Continue all supportive care. CAROL CLIFFORD,Jeb MODI 02/07/17 1242: Impression/Plan Impression/Plan Recommendations: * No plan for discharge today. * Give an additional dose of Solumedrol 60 mg today. * Prednisone 40 mg daily. Will wean down slowly. * Will follow recommendations as above. Discussed with housestaff. * Aspiration precautions. * TRC for nebulizer treatments to continue. * Acapella therapy. * Supplemental oxygen down for saturations around 90-92%. * Claritin 10 mg daily to continue. * Continue nasal sailine. * Continue Symbicort and Spiriva. * Continue Mucinex for mucociliary clearance. * DVT prophylaxis at all times. * Out of bed to chair, increase activity. * Continue all supportive care.
--- NOTE | 2017-02-07 12:55 | RADIOLOGY REPORT ---
EXAMINATION: XR PORTABLE CHEST CLINICAL INFORMATION: Hypoxia and shortness of breath. Evaluate for pneumonia. COMPARISON: CT angiogram of the chest 02/03/2017. TECHNIQUE: Portable frontal view of the chest was obtained. FINDINGS: There is severe emphysema primarily involving both upper lobes. Ill-defined opacities visualized within the lower lobes that may represent a manifestation of subsegmental atelectasis, scar, or consolidation. There is no pleural effusion or pneumothorax. The cardiac silhouette and upper mediastinal contours are normal. No acute osseous finding. IMPRESSION: Severe emphysema. Ill-defined opacities within the lower lobes that may represent a manifestation of subsegmental atelectasis, scar, or consolidative disease. Findings remain essentially unchanged when compared to the CT angiogram of chest from 02/03/2017.
--- NOTE | 2017-02-07 14:12 | PN- Psychiatry ---
Assessment/Plan Impression: Identifying Info: 76-year-old female who resides in [place] with her son presents to [facility] emergency department on 12/28/2016 with shortness of breath. Admitted to medicine for observation for COPD exacerbation. SUBJECTIVE Patient states "I have to start feeling better" Responds to majority of rest of assessment questions by nodding or shaking head. Again states she will consider but not commit to antidepressant medication. Continued education on risks and benefits. Brief ROS Gait: Not observed Sleep: Fair Appetite: Poor OBJECTIVE Mental Status Exam Presentation/Appearance: Cooperative with evaluation. Hospital garb. Orientation: Grossly oriented Sensorium: Awake but somnolent Eye contact: Appropriate Affect: Blunted, congruent Mood: Dysphoric Depression: Endorses increased Anxiety: Endorses increased Thought Content: - Denies SI/HI, AH/VH, PI. States and also believes they will not kill themselves. - Denies Hopeless/Helpless Thoughts Thought Process: Linear Associations: Appropriate Speech: Normal to and rate Judgment: Fair Insight: Poor Cognition: Memory: Grossly intact Attention/Concentration: Grossly intact Fund of Knowledge: Adequate Abstractions: Did not assess MMSE: Did not assess ASSESSMENT 76-year-old female presents with depression and anxiety in the context of chronic COPD with multiple recent exacerbations. This has been an ongoing problem since her cancer diagnosis 2-1/2 years ago. At present patient continues to be agreeable to participating in support groups and group therapy which she would greatly benefit from. However due to lack of transportation and guilt about feeling like a burden on her son she is not engaged in the services. She is somewhat more receptive to the idea of psychotropic medication today but would like to wait and consider further. 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 Suggestion: - We will continue to engage this patient and encourage her to consider medication and pursuing outpatient psychitric services. She would be a good candidate for a trial of mirtazepine due to her mood and appetite issues. - Appreciate social work and case management assistance in identifying affordable transportation for this patient. - Please continue to avoid benzodiazepines, opioid analgesics, and meds with strong anticholinergic properties as much as possible to prevent further confusion. Would not exceed current Ativan dosing without extreme caution. - Please continue to plan to include the following in her discharge instructions : - "[facility] to [facility] [place] [facility]) held every first and sunday of the month from 6:30 - 8:00 PM in the [facility] dining room. Call [phone] for more information." - "If you would like to participate in psychotherapy groups at [facility] please call [phone] to arrange for an intake appointment." - "Consider participating in events at the [facility] located at [address] [place] [address]. Please call [phone] for more information." - Please include in W10 to have patient followed by Psychiatry at [facility]. Thank you for including psychiatry in this case we'll continue to follow. Subjective Subjective: as above Objective Last 24 Hrs of Vital Signs/I&O Current Medications Sig/Kirill Start time Last Medication Dose Route Stop Time Status Admin Acetaminophen 650 MG Q4P PRN 01/31 1030 AC PO Albuterol Sulfate 3 ML BID 02/05 2200 AC 02/07 INH 0818 Albuterol Sulfate 2 PUF Q4-PRN PRN 01/31 1715 AC 02/07 INH 0612 Apixaban 2.5 MG BID 01/31 2200 AC 02/07 PO 0957 Aspirin 81 MG DAILY 02/01 1000 AC 02/07 PO 0957 Atorvastatin Calcium 80 MG 1700 01/31 1700 AC 02/06 PO 2116 Budesonide/ 2 PUF BID 01/31 1024 AC 02/07 Formoterol Fumarate INH 0957 Diltiazem HCl 90 MG DAILY 01/31 1024 AC 02/07 PO 0957 Fluticasone 2 SPRAY DAILY 01/31 1350 AC 02/07 Propionate MEREL 0958 Glycerin 2 SPRAY Q2P PRN 02/07 0945 AC PO Guaifenesin 600 MG Q12 02/01 2200 AC 02/07 PO 0956 Guaifenesin/ 10 ML Q6P PRN 02/01 0745 AC 02/04 Dextromethorphan PO 2143 Loratadine 10 MG DAILY 02/04 1000 AC 02/07 PO 0957 Lorazepam 0.25 MG BID PRN 02/05 1047 AC 02/07 PO 02/12 1046 1007 Melatonin 10 MG AT BEDTIME 02/05 2200 AC PO Methylprednisolone 60 MG ONCE ONE 02/07 1130 DC 02/07 IV 02/07 1131 1238 Mirtazapine 7.5 MG AT BEDTIME 02/06 2200 AC PO Morphine Sulfate 2 MG Q6P PRN 01/31 1030 DC IV Ondansetron HCl 4 MG Q6P PRN 02/06 1100 AC 02/06 IV 1107 Oxycodone HCl 5 MG Q6 PRN 01/31 1030 DC PO Patient Medication 1 ED .STK-MED ONE 02/06 1411 DC Teaching ED 02/06 1412 Prednisone 40 MG DAILY 02/05 1000 AC 02/07 PO 0956 Sodium Chloride 2 SPRAY Q4P PRN 02/01 1545 AC 02/05 MERLE 1033 Tiotropium [place] 1 PUF DAILY 01/31 1024 AC 02/07 INH 0957 Laboratory Tests 02/07/17 1210: pH 7.47 H, pCO2 40, pO2 74 L, HCO3 28, ABG O2 Sat (Measured) 93.0 L, Carboxyhemoglobin 1.7, O2 Concentration % 4L, O2 Delivery Method N/C, Phlebotomy Draw Site RIGHT RADIAL Vital Signs Date Time Temp Pulse Resp B/P B/P Pulse O2 O2 Flow FiO2 Mean Ox Delivery Rate 02/07 0957 80 120/60 02/07 0820 92 Nasal 4.0L Cannula 02/07 0802 92 Nasal 4.0L Cannula 02/07 0800 92 Nasal 4.0L Cannula 02/07 0800 88 Nasal 3.0L Cannula 02/07 0728 97.8 80 20 120/60 95 Nasal 3.0L Cannula 02/07 0153 96 Nasal 4.0L Cannula 02/07 0000 Nasal 2.0L Cannula 02/06 2256 97.8 82 20 116/62 93 Nasal 2.0L Cannula 02/06 1845 92 Nasal 2.0L Cannula 02/06 1600 92 Nasal 2.0L Cannula 02/06 1555 Nasal 2.0L Cannula Intake & Output 02/07 1600 02/07 0800 02/07 0000 Intake Total 120 260 Output Total 500 400 Balance -380 -140 Intake, Oral 120 260 Output, Urine 500 400
[2017-02-07 15:22] VITALS: BP 102/70
--- NOTE | 2017-02-07 18:35 | PN- Att Addend ---
Attending Addendum Attending Brief Note Patient still dealing with shortness of breath, severe anxiety and not cooperating with physical therapy and patient was seen by psych still has not made much progress. Her vital signs are stable no major changes on physical have to not H and had a decubitus superficial stage II pressure ulcer 1 x 0.6 cm it was present on admission was evaluated by the wound Center also noted patient was seen by the impact hammer operator and according to her weight and BMI qualifies for moderate caloric malnutrition. Per cardiology patient had a non-ST small myocardial infarction no congestive heart failure. Per pulmonary. Patient still not ready for discharge continued to prednisone by mouth and give 1 dose of IV Solu-Medrol. Also being followed by psychiatry patient needs social work consultation to decide what the definite position of the patient should be 24 TOTALS 02/07 0000 02/06 0000 Intake Total 840 990 Output Total 1100 1600 Balance -260 -610 Intake, Oral 840 990 Number 0 Bowel Movements Output, Urine 1100 1600 Current Medications Sig/Kirill Start time Last Medication Dose Route Stop Time Status Admin Acetaminophen 650 MG Q4P PRN 01/31 1030 AC PO Albuterol Sulfate 3 ML BID 02/05 2200 AC 02/07 INH 0818 Albuterol Sulfate 2 PUF Q4-PRN PRN 01/31 1715 AC 02/07 INH 0612 Apixaban 2.5 MG BID 01/31 2200 AC 02/07 PO 0957 Aspirin 81 MG DAILY 02/01 1000 AC 02/07 PO 0957 Atorvastatin Calcium 80 MG 1700 07/ 1700 AC 02/07 PO 1826 Budesonide/ 2 PUF BID 01/31 1024 AC 02/07 Formoterol Fumarate INH 0957 Diltiazem HCl 90 MG DAILY 01/31 1024 AC 02/07 PO 0957 Fluticasone 2 SPRAY DAILY 01/31 1350 AC 02/07 Propionate MERLE 0958 Glycerin 2 SPRAY Q2P PRN 02/07 0945 AC PO Guaifenesin 600 MG Q12 02/01 2200 AC 02/07 PO 0956 Guaifenesin/ 10 ML Q6P PRN 02/01 0745 AC 02/04 Dextromethorphan PO 2143 Loratadine 10 MG DAILY 02/04 1000 AC 02/07 PO 0957 Lorazepam 0.25 MG BID PRN 02/05 1047 AC 02/07 PO 02/12 1046 1007 Melatonin 10 MG AT BEDTIME 07/10 220 AC PO Methylprednisolone 60 MG ONCE ONE 02/07 1130 DC 02/07 IV 02/07 1131 1238 Mirtazapine 7.5 MG AT BEDTIME 02/06 2200 AC PO Morphine Sulfate 2 MG Q6P PRN 01/31 1030 DC IV Ondansetron HCl 4 MG Q6P PRN 02/06 1100 AC 02/06 IV 1107 Oxycodone HCl 5 MG Q6 PRN 01/31 1030 DC PO Prednisone 40 MG DAILY 02/05 1000 AC 02/07 PO 0956 Sodium Chloride 2 SPRAY Q4P PRN 02/01 1545 AC 02/05 MERLE 1033 Tiotropium [place] 1 PUF DAILY 01/31 1024 AC 02/07 INH 0957 Laboratory Tests 02/07/17 1210: pH 7.47 H, pCO2 40, pO2 74 L, HCO3 28, ABG O2 Sat (Measured) 93.0 L, Carboxyhemoglobin 1.7, O2 Concentration % 4L, O2 Delivery Method N/C, Phlebotomy Draw Site RIGHT RADIAL 02/06/17 0627: Anion Gap 8, Estimated GFR > 60, BUN/Creatinine Ratio 26.7 H, CBC w Diff NO MAN DIFF REQ, RBC 4.32, MCV 86.2, MCH 28.1, RDW 18.9 H, MPV 7.4, Gran % 91.5 H, Lymphocytes % 1.8 L, Monocytes % 6.5, Eosinophils % 0.2, Basophils % 0 L, Absolute Granulocytes 14.1 H, Absolute Lymphocytes 0.3 L, Absolute Monocytes 1.0 H, Absolute Eosinophils 0, Absolute Basophils 0, PUBS MCHC 32.6 L
[2017-02-07 22:05] VITALS: BP 98/52
--- NOTE | 2017-02-08 07:21 | PN- Housestaff ---
Subjective Follow-up For: - Acute SOB - NSTEMI - End satge COPD - Atrial fibrillation on [employer] Tele-Events Since Last Visit: NSR 80's - 90's Subjective: Patient seen and examined at bedside. She states that she was able to sleep last night, however, her breathing is not any better. Denies chest pain, palpitations , nausea, vomiting. Review of Systems Constitutional: Reports: weakness. Denies: chills, fever. EENTM: Denies: visual changes. Cardiovascular: Denies: chest pain, palpitations, peripheral edema. Respiratory: Reports: cough, short of breath, sputum production. Denies: hemoptysis, wheezing. Gastrointestinal: Denies: abdominal pain, constipation, diarrhea, nausea, vomiting. Genitourinary: Denies: discharge, frequency, hematuria. Neurological/Psychological: Denies: headache, numbness, tingling, tremors. Objective Last 24 Hrs of Vital Signs/I&O Vital Signs Date Time Temp Pulse Resp B/P B/P Pulse O2 O2 Flow FiO2 Mean Ox Delivery Rate 02/08 0000 92 Nasal 4.0L Cannula 02/07 2205 97.7 82 16 98/52 96 02/07 1522 98.3 93 20 102/70 91 Nasal 4.0L Cannula 02/07 0957 80 120/60 02/07 0820 92 Nasal 4.0L Cannula 02/07 0802 92 Nasal 4.0L Cannula 02/07 0800 92 Nasal 4.0L Cannula 02/07 0800 88 Nasal 3.0L Cannula 02/07 0728 97.8 80 20 120/60 95 Nasal 3.0L Cannula Intake & Output 02/08 0800 02/08 0000 02/07 1600 Intake Total 100 240 480 Output Total 300 300 Balance -200 240 180 Intake, Oral 100 240 480 Output, Urine 300 300 Physical Exam General Appearance: Alert, Oriented X3, Cooperative, Mild Distress HEENT: Atraumatic, PERRLA, EOMI, Mucous Membr. moist/pink Neck: No JVD, No thryomegaly, +2 Carotid Pulse wo Bruit Cardiovascular: Normal S1, Normal S2, No Murmurs Lungs: Clear to Auscultation, decreased breath sounds Abdomen: Normal Bowel Sounds, Soft, No Tenderness Neurological: Normal Speech, Strength at 5/5 X4 Ext, Normal Tone, Sensation Intact, Cranial Nerves 3-12 NL, Reflexes 2+ Extremities: No Clubbing, No Cyanosis, No Edema, Normal Pulses, No Tenderness/ Swelling Vascular: Normal Pulses, Pulses Symmetrical Current Medications: Current Medications Sig/Kirill Start time Last Medication Dose Route Stop Time Status Admin Acetaminophen 650 MG Q4P PRN 07 1030 AC PO Albuterol Sulfate 3 ML BID 02/05 2200 AC 02/07 INH 0818 Albuterol Sulfate 2 PUF Q4-PRN PRN 01/31 1715 AC 02/07 INH 0612 Apixaban 2.5 MG BID 01/31 2200 AC 02/07 PO 2205 Aspirin 81 MG DAILY 02/01 1000 AC 02/07 PO 0957 Atorvastatin Calcium 80 MG 1700 01/31 1700 AC 02/07 PO 1826 Budesonide/ 2 PUF BID 01/31 1024 AC 02/07 Formoterol Fumarate INH 2206 Diltiazem HCl 90 MG DAILY 01/31 1024 AC 02/07 PO 0957 Fluticasone 2 SPRAY DAILY 01/31 1350 AC 02/07 Propionate MERLE 0958 Glycerin 2 SPRAY Q2P PRN 02/07 0945 AC PO Guaifenesin 600 MG Q12 02/01 2200 AC 02/07 PO 2205 Guaifenesin/ 10 ML Q6P PRN 02/01 0745 AC 02/04 Dextromethorphan PO 2143 Loratadine 10 MG DAILY 02/04 1000 AC 02/07 PO 0957 Lorazepam 0.25 MG BID PRN 02/05 1047 AC 02/07 PO 02/12 1046 2206 Melatonin 10 MG AT BEDTIME 02/05 2200 AC PO Methylprednisolone 80 MG .STK-MED ONE 02/07 1234 DC IM 02/07 1235 Methylprednisolone 60 MG ONCE ONE 02/07 1130 DC 02/07 IV 02/07 1131 1238 Mirtazapine 7.5 MG AT BEDTIME 02/06 2200 AC 02/07 PO 2205 Morphine Sulfate 2 MG Q6P PRN 01/31 1030 DC IV Ondansetron HCl 4 MG Q6P PRN 02/06 1100 AC 02/06 IV 1107 Oxycodone HCl 5 MG Q6 PRN 01/31 1030 DC PO Prednisone 40 MG DAILY 02/05 1000 AC 02/07 PO 0956 Sodium Chloride 2 SPRAY Q4P PRN 02/01 1545 AC 02/05 MERLE 1033 Tiotropium [place] 1 PUF DAILY 01/31 1024 AC 02/07 INH 0957 Last 24 Hrs of Lab/Mannie Results Last 24 Hrs of Labs/Mics: Laboratory Tests 02/08/17 0620: Sodium Pending, Potassium Pending, Chloride Pending, Carbon Dioxide Pending, Anion Gap Pending, BUN Pending, Creatinine Pending, BUN/Creatinine Ratio Pending , CBC w Diff Pending, WBC Pending, RBC Pending, Hgb Pending, Hct Pending, MCV Pending, MCH Pending, RDW Pending, Plt Count Pending, MPV Pending, PUBS MCHC Pending 02/07/17 1210: pH 7.47 H, pCO2 40, pO2 74 L, HCO3 28, ABG O2 Sat (Measured) 93.0 L, Carboxyhemoglobin 1.7, O2 Concentration % 4L, O2 Delivery Method N/C, Phlebotomy Draw Site RIGHT RADIAL Assessment/Plan Assessment: 76-year-old female with a past medical history of COPD on 1.5-2 L of oxygen at home, atrial fibrillation on Eliquis, left lung cancer status post radiation in September 2015, anxiety, depression, osteoporosis presents to the ED status post unwitnessed fall. Vitals at the time of admission blood pressure 165/81, respiratory rate of 24, tachycardic to 120, afebrile saturating 91% on 3 L of oxygen via nasal cannula. On physical exam she is a cachectic looking elderly female, was alert and oriented 3 and in mild respiratory distress sitting in bed. HEENT revealed PERRLA, EOMI, dry mucous membranes. Examination of the neck revealed an elevated JVD. Her last exam revealed normal S1, S2, no murmurs appreciated. Auscultation of the chest revealed bilaterally decreased breath sounds. Abdominal exam was benign with abdomen soft, nontender, nondistended normal bowel sounds in all 4 quadrants. Neurological exam was grossly unremarkable. Examination of the liver extends reveal any edema. Labs were pertinent for leukocytosis with a white blood cell count 19,500, H&H of 13.9/42.0, normal platelet count of 390,000. Serum chemistries revealed a sodium of 137, potassium of 3.6, bicarbonate of 27, anion gap of 11, BUN 12 with a creatinine of 0.6. Serum glucose elevated to 110. LFTs unremarkable with an AST/ALT of 28/44, alkaline phosphatase of 95% first set of troponin positive at 0.34. Head and cervical spine CT was done which was in no acute fracture dislocation of the cervical spine, ectatic left carotid and proximal middle cerebral artery in the suprasellar region with was negative for any intracranial bleed. EKG revealed sinus tachycardia with a heart rate of 120, normal axis, no ST-T changes with a right bundle branch block that is unchanged. Last echo was done in August 2016 which showed normal global left ventricular size, no obvious trauma regional wall motion abnormalities with a left ventricular ejection fraction more than 65%. 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 In the ER she received 10 mg of IV diltiazem 1 and administered aspirin 325 mg orally 1. Assessment and plan #Syncopal episode Most likely secondary to dehydration versus NSTEMI. Her orthostats were negative. No events were observed on telemetry- continues to remain in sinus rhythm. Serum prolactin was obtained which ruled out underlying seizure. #Elevated troponins with no EKG changes Msot likely secondary to type II VT from demand ischemia secondary to tachycardia versus NSTEMI. Continue aspirin 81 mg daily and atorvastatin 80 mg daily. Ofnote, her troponins trended up from 0.34 to 0.68 to 0.81 to 0.80- 0.74. Echocardiogram revealed stage I diastolic dysfunction. Patient is already on diltiazem and has a history of end-stage COPD so will avoid beta blockers. #Sinus tachycardia - Resolved. Her TSH and free T4 were WNL. #COPD Continue on supplemental oxygen to maintain sats > 90% She was given a dose of IV Solumedrol 60mg X1, and continue Prednisone 40mg daily with a slow day taper TRC nebs. Will obtain a CXR to r/o any acute infectious process. Continue Symbicort, Spiriva Continue Mucinex, Claritin 10mg dauly adn nasal saline CTA was done which did not show any evidence of PE, hwoever concerning for aspiratioon pneumonia. Continue acapella therapy. Continue aspiration precautions. Pulm consult with Dr. Zepeda. F/U recs. Continue to work with PT for final discharge to [facility] with pulm rehab nce stable from respiratory stand point. # Hx of Atrial fibrillation She was continued on Cardizem 90 mg daily and Eliquis 2.5 mg twice a day by mouth #Decubitus skin ulcer - 1cm x0.6cm stage II ulcer Present on admssion. Seen by wound care and recs to cleanse right buttock with NS followed by hydrocolloids dressing q3 days and PRN Placed patient in calorie count - will benefit from being on Ensure. -Diet Heart healthy DVT prophylaxis On Eliquis 2.5 mg by mouth twice a day CODE STATUS Full code Problem List: 1. COPD exacerbation 2. ACS (acute coronary syndrome) Pain Ratin Pain Location: n/a Pain Goal: Remain pain free Pain Plan: tylenol Tomorrow's Labs & Rationales: n/a Consulting Request: Consulting Specialty: Cardiology
[2017-02-08 07:50] VITALS: BP 142/78
[2017-02-08 08:29] LABS: ABSOLUTE BASOPHIL COUNT 0 /CUMM (0.0-0.2); ABSOLUTE EOSINOPHIL COUNT 0 /CUMM (0.0-0.7); ABSOLUTE GRANULOCYTE CT 17.3 /CUMM (1.4-6.5); ABSOLUTE LYMPH COUNT 0.1 /CUMM (1.2-3.4); ABSOLUTE MONOCYTE COUNT 0.7 /CUMM (0.10-0.60); BASOPHIL % 0 % (0.0-2.0); EOSINOPHIL % 0 % (0-5); HEMATOCRIT 38.4 % (37-47); MEAN CORPUSCULAR HGB 28.2 PG (27.0-31.0); MEAN CORPUSCULAR HGB CONC 32.6 G/DL (33.0-37.0); MEAN CORPUSCULAR VOLUME 86.4 FL (81.0-99.0); MEAN PLATELET VOLUME 7.7 FL (7.4-10.4); PLATELET COUNT 295 /CUMM (130-400); RBC DISTRIBUTION WIDTH 18.5 % (11.5-14.5); RED BLOOD CELL CT 4.44 /CUMM (4.20-5.40); WHITE BLOOD CELL COUNT 18.1 /CUMM (4.8-10.8)
[2017-02-08 10:04] LABS: GRANULOCYTE % 95.4 % (42.2-75.2)
--- NOTE | 2017-02-08 11:30 | PN- Psychiatry ---
Assessment/Plan Impression: Identifying Info: 76-year-old female who resides in [place] with her son presents to [facility] emergency department on 12/28/2016 with shortness of breath. Admitted to medicine for observation for COPD exacerbation. SUBJECTIVE Patient states "I'm angry, I had a horrible night." Pt reports she took mirtazapine last night and slept through the night for the first time in a long time. Today she is breathing more easily with less anxiety. However, she had "weird dreams," about drums and a microwave which she cannot tolerate. Some complaints of nausea this AM. Brief ROS Gait: Not observed Sleep: Adequate Appetite: Poor OBJECTIVE Mental Status Exam Presentation/Appearance: Cooperative with evaluation. Hospital garb. Orientation: Grossly oriented Sensorium: Awake but somnolent Eye contact: Appropriate Affect: Blunted, congruent Mood: Irritable Depression: Denies today, improved Anxiety: Denies today, improved Thought Content: - Denies SI/HI, AH/VH, PI. States and also believes they will not kill themselves. - Denies Hopeless/Helpless Thoughts Thought Process: Linear Associations: Appropriate Speech: Normal to and rate Judgment: Fair Insight: Poor Cognition: Memory: Grossly intact Attention/Concentration: Grossly intact Fund of Knowledge: Adequate Abstractions: Did not assess MMSE: Did not assess Per nursing report patient again refused PT today. ASSESSMENT 76-year-old female presents with depression and anxiety in the context of chronic COPD with multiple recent exacerbations. This has been an ongoing problem since her cancer diagnosis 2-1/2 years ago. At present patient continues to be agreeable to participating in support groups and group therapy which she would greatly benefit from. However due to lack of transportation and guilt about feeling like a burden on her son she is not engaged in the services. She is somewhat more receptive to the idea of psychotropic medication today but would like to wait and consider further. 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 Suggestion: 1. We will continue to engage this patient and encourage her to continue medication and consider pursuing outpatient psychitric services. 2. Appreciate social work and case management assistance in identifying affordable transportation for this patient. 3. Please continue to avoid benzodiazepines, opioid analgesics, and meds with strong anticholinergic properties as much as possible to prevent further confusion. Would not exceed current Ativan dosing without extreme caution. 4. Please continue to plan to include the following in her discharge instructions: - "Return to [facility] ([facility]) held every first and sunday of the month from 6:30 - 8:00 PM in the [facility] dining room. Call [phone] for more information." - "If you would like to participate in psychotherapy groups at [facility] Outpatient [facility] please call [phone] to arrange for an intake appointment." - "Consider participating in events at the [facility] located at [address] [place] [address]. Please call [phone] for more information." 5. Please include in W10 to have patient followed by Psychiatry at [facility]. Thank you for including psychiatry in this case we'll continue to follow. Subjective Subjective: as above Objective Last 24 Hrs of Vital Signs/I&O Current Medications Sig/Kirill Start time Last Medication Dose Route Stop Time Status Admin Acetaminophen 650 MG Q4P PRN 01/31 1030 AC PO Albuterol Sulfate 3 ML BID 02/05 2200 AC 02/08 INH 1036 Albuterol Sulfate 2 PUF Q4-PRN PRN 01/31 1715 AC 02/07 INH 0612 Apixaban 2.5 MG BID 01/31 2200 AC 02/08 PO 0941 Aspirin 81 MG DAILY 02/01 1000 AC 02/08 PO 0940 Atorvastatin Calcium 80 MG 1700 01/31 1700 AC 02/07 PO 1826 Budesonide/ 2 PUF BID 01/31 1024 AC 02/08 Formoterol Fumarate INH 0941 Diltiazem HCl 90 MG DAILY 01/31 1024 AC 02/08 PO 0940 Fluticasone 2 SPRAY DAILY 01/31 1350 AC 02/07 Propionate MERLE 0958 Glycerin 2 SPRAY Q2P PRN 02/07 0945 AC PO Guaifenesin 600 MG Q12 02/01 2200 AC 02/08 PO 0941 Guaifenesin/ 10 ML Q6P PRN 02/01 0745 AC 02/04 Dextromethorphan PO 2143 Loratadine 10 MG DAILY 02/04 1000 AC 02/08 PO 0941 Lorazepam 0.25 MG BID PRN 02/05 1047 AC 02/07 PO 02/12 1046 2206 Melatonin 10 MG AT BEDTIME 02/05 2200 AC PO Methylprednisolone 80 MG .STK-MED ONE 02/07 1234 DC IM 02/07 1235 Methylprednisolone 60 MG ONCE ONE 02/07 1130 DC 02/07 IV 02/07 1131 1238 Mirtazapine 7.5 MG AT BEDTIME 02/06 2200 AC 02/07 PO 2205 Ondansetron HCl 4 MG Q6P PRN 02/06 1100 AC 02/08 IV 0850 Prednisone 40 MG DAILY 02/05 1000 AC 02/08 PO 0941 Sodium Chloride 2 SPRAY Q4P PRN 02/01 1545 AC 02/05 MERLE 1033 Tiotropium [place] 1 PUF DAILY 01/31 1024 AC 02/08 INH 0941 Laboratory Tests 02/08/17 0620: Anion Gap 8, Estimated GFR > 60, BUN/Creatinine Ratio 36.7 H, CBC w Diff NO MAN DIFF REQ, RBC 4.44, MCV 86.4, MCH 28.2, RDW 18.5 H, MPV 7.7, Gran % 95.4 H, Lymphocytes % 0.8 L, Monocytes % 3.8, Eosinophils % 0, Basophils % 0 L, Absolute Granulocytes 17.3 H, Absolute Lymphocytes 0.1 L, Absolute Monocytes 0.7 H, Absolute Eosinophils 0, Absolute Basophils 0, PUBS MCHC 32.6 L 02/07/17 1210: pH 7.47 H, pCO2 40, pO2 74 L, HCO3 28, ABG O2 Sat (Measured) 93.0 L, Carboxyhemoglobin 1.7, O2 Concentration % 4L, O2 Delivery Method N/C, Phlebotomy Draw Site RIGHT RADIAL Vital Signs Date Time Temp Pulse Resp B/P B/P Pulse O2 O2 Flow FiO2 Mean Ox Delivery Rate 02/08 1039 94 Nasal 4.0L Cannula 02/08 0940 96 140/78 02/08 08 92 Nasal 4.0L Cannula 02/08 0750 97.9 91 16 142/78 95 Nasal Cannula 02/08 0000 92 Nasal 4.0L Cannula 02/07 2205 97.7 82 16 98/52 96 02/07 1522 98.3 93 20 102/70 91 Nasal 4.0L Cannula Intake & Output 02/08 1600 02/08 0800 07/ 0000 Intake Total 100 240 Output Total 300 Balance -200 240 Intake, Oral 100 240 Output, Urine 300
--- NOTE | 2017-02-08 11:50 | PN- Pulmonary ---
Subjective HPI/Critical Care Issues: Afebrile with leukocytosis (on steroid). She saturating well on 4 L of oxygen. Patient looks less anxious compared to yesterday. Her nasal congestion improved. Her cough became productive of yellow sputum this morning. She reported being less fatigued but has a mild nausea. She denies chest pain, chest pressure, vomiting, abdominal pain, fever or chills Objective Current Medications: Current Medications Sig/Kirill Start time Last Medication Dose Route Stop Time Status Admin Acetaminophen 650 MG Q4P PRN 01/31 1030 AC PO Albuterol Sulfate 3 ML BID 02/05 2200 AC 02/08 INH 1036 Albuterol Sulfate 2 PUF Q4-PRN PRN 01/31 1715 AC 02/07 INH 0612 Apixaban 2.5 MG BID 01/31 2200 AC 02/08 PO 0941 Aspirin 81 MG DAILY 02/01 1000 AC 02/08 PO 0940 Atorvastatin Calcium 80 MG 1700 01/31 1700 AC 02/07 PO 1826 Budesonide/ 2 PUF BID 01/31 1024 AC 02/08 Formoterol Fumarate INH 0941 Diltiazem HCl 90 MG DAILY 01/31 1024 AC 02/08 PO 0940 Fluticasone 2 SPRAY DAILY 01/31 1350 AC 02/07 Propionate MERLE 0958 Glycerin 2 SPRAY Q2P PRN 02/07 0945 AC PO Guaifenesin 600 MG Q12 02/01 2200 AC 02/08 PO 0941 Guaifenesin/ 10 ML Q6P PRN 02/01 0745 AC 02/04 Dextromethorphan PO 2143 Loratadine 10 MG DAILY 02/04 1000 AC 02/08 PO 0941 Lorazepam 0.25 MG BID PRN 02/05 1047 AC 02/07 PO 02/12 1046 2206 Melatonin 10 MG AT BEDTIME 02/05 2200 AC PO Methylprednisolone 80 MG .STK-MED ONE 02/07 1234 DC IM 02/07 1235 Mirtazapine 7.5 MG AT BEDTIME 02/06 2200 AC 02/07 PO 2205 Ondansetron HCl 4 MG Q6P PRN 02/06 1100 AC 02/08 IV 0850 Prednisone 40 MG DAILY 02/05 1000 AC 02/08 PO 0941 Sodium Chloride 2 SPRAY Q4P PRN 02/01 1545 AC 02/05 MERLE 1033 Tiotropium [place] 1 PUF DAILY 01/31 1024 AC 02/08 INH 0941 Vital Signs & I&O Last 24 Hrs of Vitals and I&O: Vital Signs Date Time Temp Pulse Resp B/P B/P Pulse O2 O2 Flow FiO2 Mean Ox Delivery Rate 02/08 1039 94 Nasal 4.0L Cannula 02/08 0940 96 140/78 02/08 0800 92 Nasal 4.0L Cannula 02/08 0750 97.9 91 16 142/78 95 Nasal Cannula 02/08 0000 92 Nasal 4.0L Cannula 02/07 2205 97.7 82 16 98/52 96 02/07 1522 98.3 93 20 102/70 91 Nasal 4.0L Cannula Intake & Output 02/08 1600 02/08 0800 02/08 0000 Intake Total 100 240 Output Total 300 Balance -200 240 Intake, Oral 100 240 Output, Urine 300 Exam General Appearance: no apparent distress, alert, awake, comfortable Head: atraumatic, normal appearance Ears, Nose, Throat: normal pharynx, hearing grossly normal Neck: normal inspection Respiratory: diminished air entry all over with scattered rhonchi Cardiovascular: regular rate/rhythm, normal S1 and S2 with no MRGs Abdomen: normal bowel sounds, soft, non-tender Results Last 24 Hrs of Lab Results: Laboratory Tests 02/08/17 0620: Anion Gap 8, Estimated GFR > 60, BUN/Creatinine Ratio 36.7 H, CBC w Diff NO MAN DIFF REQ, RBC 4.44, MCV 86.4, MCH 28.2, RDW 18.5 H, MPV 7.7, Gran % 95.4 H, Lymphocytes % 0.8 L, Monocytes % 3.8, Eosinophils % 0, Basophils % 0 L, Absolute Granulocytes 17.3 H, Absolute Lymphocytes 0.1 L, Absolute Monocytes 0.7 H, Absolute Eosinophils 0, Absolute Basophils 0, PUBS MCHC 32.6 L 02/07/17 1210: pH 7.47 H, pCO2 40, pO2 74 L, HCO3 28, ABG O2 Sat (Measured) 93.0 L, Carboxyhemoglobin 1.7, O2 Concentration % 4L, O2 Delivery Method N/C, Phlebotomy Draw Site RIGHT RADIAL Impression/Plan Impression/Plan Impression/Plan: 1. Acute on chronic respiratory failure, secondary to end stage COPD. Possible aspiration on CT of the chest noted. 2. NSTEMI. 3. S/P syncope/fall. 4. Chronic sinus congestion. 5. P pulmonale on EKG that are present right side heart strain secondary to end- stage COPD 6. Anxiety 7. Very mild metabolic alkalosis. Plan * Prednisone 40 mg daily, Will wean down slowly. * Aspiration precautions. * TRC for nebulizer treatments to continue. * Acapella therapy. * Supplemental oxygen down for saturations around 90-92%. * Claritin 10 mg daily to continue. * Continue nasal sailine. * Continue Symbicort and Spiriva. * Continue Mucinex for mucociliary clearance. * DVT prophylaxis at all times. * Out of bed to chair, increase activity. * Continue all supportive care.
[2017-02-08] MEDS ORDERED: BIOTENE473 ML PO (13:00)
[2017-02-08] MEDS ORDERED: LORATADINE10 M1 PO (13:00)
[2017-02-08] MEDS ORDERED: GUAIFENESIN ER600 MG PO (13:00)
[2017-02-08] MEDS ORDERED: REMERON15 M2 PO (13:00)
[2017-02-08] MEDS ORDERED: MELATONIN5 M7 PO (13:00)
[2017-02-08] MEDS ORDERED: PREDNISONE10 M2 PO (13:03)
[2017-02-08] MEDS ORDERED: ATIVAN0.5 M1 PO (13:19)
[2017-02-08 14:52] VITALS: BP 102/68
[2017-02-08 14:57] VITALS: BP 102/68
--- NOTE | 2017-02-08 18:20 | PN- Att Addend ---
Attending Addendum Attending Brief Note Patient in bed in no acute distress oxygen on still some loose cough. Psychiatry had recommended some Remeron the patient was reluctant to take the patient slept better and had some possible nightmares she did not like the side effects. Patient is a little calmer, we'll check with psychiatry see if we have to discontinue this medication otherwise patient now agreeable to short-term rehabilitation unit as soon as possible facility accepts that and will transfer Current Medications Sig/Kirill Start time Last Medication Dose Route Stop Time Status Admin Acetaminophen 650 MG Q4P PRN 01/31 1030 AC PO Albuterol Sulfate 3 ML BID 02/05 2200 AC 02/08 INH 1036 Albuterol Sulfate 2 PUF Q4-PRN PRN 01/31 1715 AC 02/07 INH 0612 Apixaban 2.5 MG BID 01/31 2200 AC 02/08 PO 0941 Aspirin 81 MG DAILY 02/01 1000 AC 02/08 PO 0940 Atorvastatin Calcium 80 MG 1700 01/31 1700 AC 02/08 PO 1711 Budesonide/ 2 PUF BID 01/31 1024 AC 02/08 Formoterol Fumarate INH 0941 Diltiazem HCl 90 MG DAILY 01/31 1024 AC 02/08 PO 0940 Fluticasone 2 SPRAY DAILY 01/31 1350 AC 02/07 Propionate MERLE 0958 Glycerin 2 SPRAY Q2P PRN 02/07 0945 AC PO Guaifenesin 600 MG Q12 02/01 2200 AC 02/08 PO 0941 Guaifenesin/ 10 ML Q6P PRN 02/01 0745 AC 02/04 Dextromethorphan PO 2143 Loratadine 10 MG DAILY 02/04 1000 AC 02/08 PO 0941 Lorazepam 0.25 MG BID PRN 02/05 1047 AC 02/07 PO 02/12 1046 2206 Melatonin 10 MG AT BEDTIME 02/05 2200 AC PO Mirtazapine 7.5 MG AT BEDTIME 02/06 2200 AC 02/07 PO 2205 Ondansetron HCl 4 MG Q6P PRN 02/06 1100 AC 02/08 IV 0850 Patient Medication 1 ED .STK-MED ONE 02/08 1424 [facility] Teaching ED 02/08 1425 Prednisone 40 MG DAILY 02/05 1000 AC 02/08 PO 0941 Sodium Chloride 2 SPRAY Q4P PRN 02/01 1545 AC 02/05 MERLE 1033 Tiotropium [place] 1 PUF DAILY 01/31 1024 AC 02/08 INH 0941 Vital Signs Date Time Temp Pulse Resp B/P B/P Pulse O2 O2 Flow FiO2 Mean Ox Delivery Rate 02/08 1600 92 Nasal 4.0L Cannula 02/08 1457 99.1 102 22 102/68 02/08 1452 99.1 102 22 102/68 95 Nasal 5.0L Cannula 02/08 1039 94 Nasal 4.0L Cannula 02/08 0940 96 140/78 02/08 0800 92 Nasal 4.0L Cannula 02/08 0750 97.9 91 16 142/78 95 Nasal Cannula 02/08 0000 92 Nasal 4.0L Cannula 02/07 2205 97.7 82 16 98/52 96 Intake & Output 02/08 1600 02/08 0800 02/08 0000 Intake Total 360 100 240 Output Total 240 300 Balance 120 -200 240 Intake, Oral 360 100 240 Output, Urine 240 300
[2017-02-08 23:15] VITALS: BP 102/60
[2017-02-09 06:50] VITALS: BP 126/78
--- NOTE | 2017-02-09 07:19 | PN- Housestaff ---
Subjective Follow-up For: - Acute SOB - NSTEMI - End satge COPD - Atrial fibrillation on Eliquis Complaints: no complaints Subjective: Patient seen and examined at bedside. She states that she feels much better and is eager to go to pulm rehab today. She states she does not want remeron as it makes her feeel nauuseated Review of Systems Constitutional: Denies: chills, fever. EENTM: Denies: visual changes. Cardiovascular: Denies: chest pain, orthopena, palpitations. Respiratory: Reports: cough, sputum production. Denies: hemoptysis, orthopnea, short of breath, wheezing. Gastrointestinal: Denies: abdominal pain, constipation, diarrhea, nausea, vomiting. Genitourinary: Reports: no symptoms. Musculoskeletal: Reports: no symptoms. Neurological/Psychological: Denies: headache, numbness, tingling, tremors, unable to move lower ext, unable to move upper ext. Objective Last 24 Hrs of Vital Signs/I&O Vital Signs Date Time Temp Pulse Resp B/P B/P Pulse O2 O2 Flow FiO2 Mean Ox Delivery Rate 02/09 0650 97.8 82 20 126/78 93 Nasal Cannula 02/09 0000 Nasal 4.0L Cannula 02/08 2315 98.0 80 16 102/60 96 Nasal 3.0L Cannula 02/08 1920 96 Nasal 4.0L Cannula 02/08 1600 92 Nasal 4.0L Cannula 02/08 1457 99.1 102 22 102/68 02/08 1452 99.1 102 22 102/68 95 Nasal 5.0L Cannula 02/08 1039 94 Nasal 4.0L Cannula 02/08 0940 96 140/78 02/08 0800 92 Nasal 4.0L Cannula 02/08 0750 97.9 91 16 142/78 95 Nasal Cannula Intake & Output 02/09 0800 02/09 0000 02/08 1600 Intake Total 160 360 Output Total 240 Balance 160 120 Intake, Oral 160 360 Output, Urine 240 Physical Exam General Appearance: Alert, Oriented X3, Cooperative, cachectic HEENT: Atraumatic, PERRLA, EOMI, Mucous Membr. moist/pink Neck: Supple, No JVD, No LAD Cardiovascular: Normal S1, Normal S2, No Murmurs Lungs: Clear to Auscultation, Normal Air Movement Abdomen: Normal Bowel Sounds, Soft, No Tenderness Neurological: Normal Speech, Strength at 5/5 X4 Ext, Normal Tone, Sensation Intact, Cranial Nerves 3-12 NL, Reflexes 2+ Extremities: No Clubbing, No Cyanosis, No Edema, Normal Pulses, No Tenderness/ Swelling Vascular: Normal Pulses, Pulses Symmetrical Current Medications: Current Medications Sig/Kirill Start time Last Medication Dose Route Stop Time Status Admin Acetaminophen 650 MG Q4P PRN 01/31 1030 AC PO Albuterol Sulfate 3 ML BID 02/05 2200 AC 02/08 INH 1920 Albuterol Sulfate 2 PUF Q4-PRN PRN 01/31 1715 AC 02/07 INH 0612 Apixaban 2.5 MG BID 01/31 2200 AC 02/08 PO 2125 Aspirin 81 MG DAILY 02/01 1000 AC 02/08 PO 0940 Atorvastatin Calcium 80 MG 1700 01/31 1700 AC 02/08 PO 1711 Budesonide/ 2 PUF BID 01/31 1024 AC 02/08 Formoterol Fumarate INH 2143 Diltiazem HCl 90 MG DAILY 01/31 1024 AC 02/08 PO 0940 Fluticasone 2 SPRAY DAILY 01/31 1350 AC 02/07 Propionate MERLE 0958 Glycerin 2 SPRAY Q2P PRN 02/07 0945 AC PO Guaifenesin 600 MG Q12 02/01 2200 AC 02/08 PO 2142 Guaifenesin/ 10 ML Q6P PRN 02/01 0745 AC 02/04 Dextromethorphan PO 2143 Loratadine 10 MG DAILY 02/04 1000 AC 02/08 PO 0941 Lorazepam 0.25 MG BID PRN 02/05 1047 AC 02/08 PO 02/12 1046 2134 Melatonin 10 MG AT BEDTIME 02/05 2200 AC PO Mirtazapine 7.5 MG AT BEDTIME 02/06 2200 AC 02/07 PO 2205 Ondansetron HCl 4 MG Q6P PRN 02/06 1100 AC 02/08 IV 0850 Patient Medication 1 ED .STK-MED ONE 02/08 1424 DC Teaching ED 02/08 1425 Prednisone 40 MG DAILY 02/05 1000 AC 02/08 PO 0941 Sodium Chloride 2 SPRAY Q4P PRN 02/01 1545 AC 02/05 MERLE 1033 Tiotropium [place] 1 PUF DAILY 01/31 1024 AC 02/08 INH 0941 Assessment/Plan Assessment: 76-year-old female with a past medical history of COPD on 1.5-2 L of oxygen at home, atrial fibrillation on Eliquis, left lung cancer status post radiation in September 2015, anxiety, depression, osteoporosis presents to the ED status post unwitnessed fall. Vitals at the time of admission blood pressure 165/81, respiratory rate of 24, tachycardic to 120, afebrile saturating 91% on 3 L of oxygen via nasal cannula. On physical exam she is a cachectic looking elderly female, was alert and oriented 3 and in mild respiratory distress sitting in bed. HEENT revealed PERRLA, EOMI, dry mucous membranes. Examination of the neck revealed an elevated JVD. Her last exam revealed normal S1, S2, no murmurs appreciated. Auscultation of the chest revealed bilaterally decreased breath sounds. Abdominal exam was benign with abdomen soft, nontender, nondistended normal bowel sounds in all 4 quadrants. Neurological exam was grossly unremarkable. Examination of the liver extends reveal any edema. Labs were pertinent for leukocytosis with a white blood cell count 19,500, H&H of 13.9/42.0, normal platelet count of 390,000. Serum chemistries revealed a sodium of 137, potassium of 3.6, bicarbonate of 27, anion gap of 11, BUN 12 with a creatinine of 0.6. Serum glucose elevated to 110. LFTs unremarkable with an AST/ALT of 28/44, alkaline phosphatase of 95% first set of troponin positive at 0.34. Head and cervical spine CT was done which was in no acute fracture dislocation of the cervical spine, ectatic left carotid and proximal middle cerebral artery in the suprasellar region with was negative for any intracranial bleed. EKG revealed sinus tachycardia with a heart rate of 120, normal axis, no ST-T changes with a right bundle branch block that is unchanged. Last echo was done in August 2016 which showed normal global left ventricular size, no obvious trauma regional wall motion abnormalities with a left ventricular ejection fraction more than 65%. 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 In the ER she received 10 mg of IV diltiazem 1 and administered aspirin 325 mg orally 1. Assessment and plan #Syncopal episode Most likely secondary to dehydration versus NSTEMI. Her orthostats were negative. No events were observed on telemetry- continues to remain in sinus rhythm. Serum prolactin was obtained which ruled out underlying seizure. #Elevated troponins with no EKG changes Msot likely secondary to type II IA from demand ischemia secondary to tachycardia versus NSTEMI. Continue aspirin 81 mg daily and atorvastatin 80 mg daily. Ofnote, her troponins trended up from 0.34 to 0.68 to 0.81 to 0.80- 0.74. Echocardiogram revealed stage I diastolic dysfunction. Patient is already on diltiazem and has a history of end-stage COPD so will avoid beta blockers. #Sinus tachycardia - Resolved. Her TSH and free T4 were WNL. #COPD Continue on supplemental oxygen to maintain sats > 90% Continue Prednisone 40mg daily with a slow day taper TRC nebs. Continue Symbicort, Spiriva, Mucinex, Claritin 10mg dauly adn nasal saline CTA was done which did not show any evidence of PE, hwoever concerning for aspiratioon pneumonia. Continue acapella therapy. Continue aspiration precautions. Pulm consult with Dr. Zepeda. F/U recs. Continue to work with PT for final discharge to [facility] with pulm rehab today pending availabuilty of bed # Hx of Atrial fibrillation She was continued on Cardizem 90 mg daily and Eliquis 2.5 mg twice a day by mouth #Decubitus skin ulcer - 1cm x0.6cm stage II ulcer Present on admssion. Seen by wound care and recs to cleanse right buttock with NS followed by hydrocolloids dressing q3 days and PRN Placed patient in calorie count - will benefit from being on Ensure. -Diet Heart healthy DVT prophylaxis On Eliquis 2.5 mg by mouth twice a day CODE STATUS Full code Problem List: 1. ACS (acute coronary syndrome) 2. COPD exacerbation Pain Ratin Pain Location: n/a Pain Goal: Remain pain free Pain Plan: tyelnol Tomorrow's Labs & Rationales: n/a Consulting Request: Consulting Specialty: Psychiatry
--- NOTE | 2017-02-09 11:00 | PN- Att Addend ---
Attending Addendum Attending Brief Note Patient sitting in the chair stated she slept a little bit better last night. Usual shortness of breath. Vital signs are stable no fever, no changes on physical patient accepting to go to pulmonary rehabilitation has to be reassessed by physical therapist and hopefully we will be able to leave 24 TOTALS 02/09 0000 02/08 0000 Intake Total 620 840 Output Total 540 800 Balance 80 40 Intake, Oral 620 840 Output, Urine 540 800 Current Medications Sig/Kirill Start time Last Medication Dose Route Stop Time Status Admin Acetaminophen 650 MG Q4P PRN 01/31 1030 AC PO Albuterol Sulfate 3 ML BID 02/05 2200 AC 02/09 INH 0934 Albuterol Sulfate 2 PUF Q4-PRN PRN 01/31 1715 AC 02/07 INH 0612 Apixaban 2.5 MG BID 01/31 2200 AC 02/09 PO 1016 Aspirin 81 MG DAILY 02/01 1000 AC 02/09 PO 1016 Atorvastatin Calcium 80 MG 1700 01/31 1700 AC 02/08 PO 1711 Budesonide/ 2 PUF BID 01/31 1024 AC 02/09 Formoterol Fumarate INH 1013 Diltiazem HCl 90 MG DAILY 01/31 1024 AC 02/09 PO 1015 Fluticasone 2 SPRAY DAILY 01/31 1350 AC 02/07 Propionate MERLE 0958 Glycerin 2 SPRAY Q2P PRN 02/07 0945 AC PO Guaifenesin 600 MG Q12 02/01 2200 AC 02/09 PO 1016 Guaifenesin/ 10 ML Q6P PRN 02/01 0745 AC 02/04 Dextromethorphan PO 2143 Loratadine 10 MG DAILY 02/04 1000 AC 02/09 PO 1014 Lorazepam 0.25 MG BID PRN 02/05 1047 AC 02/09 PO 02/12 1046 1047 Melatonin 10 MG AT BEDTIME 02/05 2200 AC PO Mirtazapine 7.5 MG AT BEDTIME 02/06 2200 DC 02/07 PO 2205 Ondansetron HCl 4 MG Q6P PRN 02/06 1100 AC 02/08 IV 0850 Patient Medication 1 ED .STK-MED ONE 02/08 1424 DC Teaching ED 02/08 1425 Prednisone 40 MG DAILY 02/05 1000 AC 02/09 PO 1014 Sodium Chloride 2 SPRAY Q4P PRN 02/01 1545 AC 02/05 MERLE 1033 Tiotropium [place] 1 PUF DAILY 01/31 1024 AC 02/09 INH 1013 Laboratory Tests 02/08/17 0620: Anion Gap 8, Estimated GFR > 60, BUN/Creatinine Ratio 36.7 H, CBC w Diff NO MAN DIFF REQ, RBC 4.44, MCV 86.4, MCH 28.2, RDW 18.5 H, MPV 7.7, Gran % 95.4 H, Lymphocytes % 0.8 L, Monocytes % 3.8, Eosinophils % 0, Basophils % 0 L, Absolute Granulocytes 17.3 H, Absolute Lymphocytes 0.1 L, Absolute Monocytes 0.7 H, Absolute Eosinophils 0, Absolute Basophils 0, PUBS MCHC 32.6 L 02/07/17 1210: pH 7.47 H, pCO2 40, pO2 74 L, HCO3 28, ABG O2 Sat (Measured) 93.0 L, Carboxyhemoglobin 1.7, O2 Concentration % 4L, O2 Delivery Method N/C, Phlebotomy Draw Site RIGHT RADIAL
--- NOTE | 2017-02-09 14:39 | PN- Pulmonary ---
Subjective HPI/Critical Care Issues: Patient seen and examined at bedside. She states that she feels much better and is eager to go to pulm rehab today. She states she does not want remeron as it makes her feeel nauuseated Review of Systems Constitutional: Denies: chills, fever. EENTM: Denies: visual changes. Cardiovascular: Denies: chest pain, orthopena, palpitations. Respiratory: Reports: cough, sputum production. Denies: hemoptysis, orthopnea, short of breath, wheezing. Gastrointestinal: Denies: abdominal pain, constipation, diarrhea, nausea, vomiting. Genitourinary: Reports: no symptoms. Musculoskeletal: Reports: no symptoms. Neurological/Psychological: Denies: headache, numbness, tingling, tremors, unable to move lower ext, unable to move upper ext. Objective Current Medications: Current Medications Sig/Kirill Start time Last Medication Dose Route Stop Time Status Admin Acetaminophen 650 MG Q4P PRN 01/31 1030 AC PO Albuterol Sulfate 3 ML BID 02/05 2200 AC 02/09 INH 0934 Albuterol Sulfate 2 PUF Q4-PRN PRN 01/31 1715 AC 02/07 INH 0612 Apixaban 2.5 MG BID 01/31 2200 AC 02/09 PO 1016 Aspirin 81 MG DAILY 02/01 1000 AC 02/09 PO 1016 Atorvastatin Calcium 80 MG 1700 01/31 1700 AC 02/08 PO 1711 Budesonide/ 2 PUF BID 01/31 1024 AC 02/09 Formoterol Fumarate INH 1013 Diltiazem HCl 90 MG DAILY 01/31 1024 AC 02/09 PO 1015 Fluticasone 2 SPRAY DAILY 01/31 1350 AC 02/07 Propionate MERLE 0958 Glycerin 2 SPRAY Q2P PRN 02/07 0945 AC PO Guaifenesin 600 MG Q12 02/01 2200 AC 02/09 PO 1016 Guaifenesin/ 10 ML Q6P PRN 02/01 0745 AC 02/04 Dextromethorphan PO 2143 Loratadine 10 MG DAILY 02/04 1000 AC 02/09 PO 1014 Lorazepam 0.25 MG BID PRN 02/05 1047 AC 02/09 PO 02/12 1046 1047 Melatonin 10 MG AT BEDTIME 02/05 2200 AC PO Mirtazapine 7.5 MG AT BEDTIME 02/06 2200 DC 02/07 PO 2205 Ondansetron HCl 4 MG Q6P PRN 02/06 1100 AC 02/08 IV 0850 Prednisone 40 MG DAILY 02/05 1000 AC 02/09 PO 1014 Sodium Chloride 2 SPRAY Q4P PRN 02/01 1545 AC 02/05 MERLE 1033 Tiotropium [place] 1 PUF DAILY 01/31 1024 AC 02/09 INH 1013 Vital Signs & I&O Last 24 Hrs of Vitals and I&O: Vital Signs Date Time Temp Pulse Resp B/P B/P Pulse O2 O2 Flow FiO2 Mean Ox Delivery Rate 02/09 1015 82 126/78 02/09 0934 95 Nasal 3.0L Cannula 02/09 0800 92 Nasal 3.0L Cannula 02/09 0650 97.8 82 20 126/78 93 Nasal Cannula 02/09 0000 Nasal 4.0L Cannula 02/08 2315 98.0 80 16 102/60 96 Nasal 3.0L Cannula 02/08 1920 96 Nasal 4.0L Cannula 02/08 1600 92 Nasal 4.0L Cannula 02/08 1457 99.1 102 22 102/68 02/08 1452 99.1 102 22 102/68 95 Nasal 5.0L Cannula Intake & Output 02/09 1600 02/09 0800 02/09 0000 Intake Total 100 160 Output Total 400 Balance -300 160 Intake, Oral 100 160 Output, Urine 400 Impression/Plan Impression/Plan Impression/Plan: Physical Exam General Appearance: Alert, Oriented X3, Cooperative, cachectic HEENT: Atraumatic, PERRLA, EOMI, Mucous Membr. moist/pink Neck: Supple, No JVD, No LAD Cardiovascular: Normal S1, Normal S2, No Murmurs Lungs: Clear to Auscultation, Normal Air Movement Abdomen: Normal Bowel Sounds, Soft, No Tenderness Neurological: Normal Speech, Strength at 5/5 X4 Ext, Normal Tone, Sensation Intact, Cranial Nerves 3-12 NL, Reflexes 2+ Extremities: No Clubbing, No Cyanosis, No Edema, Normal Pulses, No Tenderness/ Swelling Vascular: Normal Pulses, Pulses Symmetrical IMPRESSION 1. Improving Acute on chronic respiratory failure, secondary to end stage COPD. Possible aspiration on CT of the chest noted. 2. NSTEMI. 3. S/P syncope/fall. 4. Chronic sinus congestion. 5. P pulmonale on EKG that are present right side heart strain secondary to end- stage COPD 6. Anxiety 7. Very mild metabolic alkalosis. Plan * Prednisone 40 mg daily, Will wean down slowly in 2 - 3 weeks * Aspiration precautions. * TRC for nebulizer treatments to continue. * Acapella therapy. * Supplemental oxygen down for saturations around 90-92%. * Claritin 10 mg daily to continue. * Continue nasal sailine. * Continue Symbicort and Spiriva. * Continue Mucinex for mucociliary clearance. * DVT prophylaxis * Out of bed to chair, increase activity. * Continue all supportive care. OK to go to pulm rehab [facility]m [place]
[2017-02-09 14:56] VITALS: BP 108/60
== END 2017-02-09 15:45 | DRG 280 ==
LOC: DELPENDDIS → ERH 06:58 → 1NO 08:35 → ERHI 08:35 → ENRESERV 10:04 → 1NO 10:35 → ENTRNSPT 10:35 → EDTRNSPTSTS 11:05 → EDTRNSPT 11:14 → 1NO 11:28 → CMPTRNSPT 11:41 → CMPBEDREQ 13:10 → 1NO 02-01 09:46 → ENPENDDIS 02-08 13:20 → 1NO 02-09 15:45
PROVIDERS: Emergency Medicine; Hospitalist; Internal Medicine Infectious Disease; Student in an Organized Health Care Education/Training Program; ADMIT Internal Medicine
DX: I21.4 Non-ST elevation (NSTEMI) myocardial infarction (principal); J96.20 Acute and chronic respiratory failure, unspecified whether with hypoxia or hypercapnia; J90 Pleural effusion, not elsewhere classified; E87.3 Alkalosis; L89.312 Pressure ulcer of right buttock, stage 2; E44.0 Moderate protein-calorie malnutrition; Z68.1 Body mass index [BMI] 19.9 or less, adult; J44.1 Chronic obstructive pulmonary disease with (acute) exacerbation; I27.2 Other secondary pulmonary hypertension; Z99.81 Dependence on supplemental oxygen; I48.2 Chronic atrial fibrillation; Z79.01 Long term (current) use of anticoagulants; F41.8 Other specified anxiety disorders; E86.0 Dehydration; Z85.89 Personal history of malignant neoplasm of other organs and systems; M81.0 Age-related osteoporosis without current pathological fracture; Z87.891 Personal history of nicotine dependence; I48.0 Paroxysmal atrial fibrillation; R00.0 Tachycardia, unspecified; F32.9 Major depressive disorder, single episode, unspecified
CPT/HCPCS: 1NP; 36415; 82436; 87070; 93005; 93010; 93306; 96374; 97110-GO; 97112-GO; 97161-GP; 97530-GO; 99291; J2405; J2920; J2930; J3490; J7608

== ENCOUNTER 2017-02-14 04:40 | Inpatient (IN) | payer OTHER ==
[~2017-02-14] VITALS: Ht 167.6 cm; Wt 45.4 kg
[~2017-02-14 04:40] MED LIST changes: +ASPIRIN81 M4 PO; +ATIVAN0.5 M1 PO; +ATORVASTATIN CA80 M1 PO; +BIOTENE473 ML PO; +GUAIFENESIN ER600 MG PO; +LASIX20 M1 PO; +LORATADINE10 M1 PO; +MELATONIN5 M7 PO; +REMERON15 M2 PO
--- NOTE | 2017-02-14 04:50 | NUR ---
77YO FEMALE TO RM 9 VIA AMB FROM ECF W/CO DIFF BREATHING TONITE. PT NORMALLY ON 2L NASAL 02. STAFF INCREASED HER TO 4L AFTER NEB TX AND PRN ATIVAN. UPON ARRIVAL RECIEVING 2ND NEB,02 SAT = 87. EVAL BY DR SINGH
--- NOTE | 2017-02-14 04:59 | ED DYSPNEA/ASTHMA COMPLAINT ---
History of Present Illness General Chief Complaint: Dyspnea (COPD, CHF, Other) Stated Complaint: BIBA SOB Source: patient, old records, EMS Exam Limitations: clinical condition Vital Signs & Intake/Output Vital Signs & Intake/Output Vital Signs Date Time Temp Pulse Resp B/P B/P Pulse O2 O2 Flow FiO2 Mean Ox Delivery Rate 02/14 1254 110 22 129/70 02/14 0918 96.0 110 24 100/74 99 BIPAP 02/14 0759 100 BIPAP 100% 02/14 0758 124 100 02/14 0724 96.4 114 24 128/90 98 BIPAP 02/14 0620 131 93 02/14 0604 97.6 128 24 133/84 94 BIPAP 100% 02/14 0507 128 93 02/14 0443 97.1 108 24 172/91 83 Aerosol 10L Mask Allergies Coded Allergies: levofloxacin (Mild, LEGS FELT TIGHT 12/17/16) amoxicillin (ANAPHYLAXIS 12/17/16) clarithromycin (UNKNOWN - PT DOESNT REMEMBER WAS TOLD BY MD NOT TO TAKE 12/17/16 ) doxycycline (GI UPSET 12/28/16) Triage Note: 77YO FEMALE TO RM 9 VIA AMB FROM F W/CO DIFF BREATHING TONITE. PT NORMALLY ON 2L NASAL 02. STAFF INCREASED HER TO 4L AFTER NEB TX AND PRN ATIVAN. UPON ARRIVAL RECIEVING SAT = 87. Triage Nurses Notes Reviewed? yes HPI: Patient presents for evaluation of dyspnea that began this evening. The patient has a history of COPD and prior heart attack who typically uses 2 L nasal cannula. Because of low oxygen saturation this was increased to 4 but the patient was persistently hypoxic. En route to the emergency department patient was treated with a DuoNeb and IV Solu-Medrol. Upon presentation to the emergency departments patient is short of breath and is unable to provide substantial history. She does nod and shake her head to simple questions. (FRANCISCO CLIFFORD,BROWN King) Reconcile Medications Albuterol Sulfate 0.63 MG/3 ML VIAL.NEB 1 Vial INH/AMOS TID COPD (Reported) Reason to Stop at ADM:[facility] ORDERS Albuterol Sulfate (Proair Respiclick) 90 MCG AER.POW.BA 2 PUFF INH Q4-6 PRN COPD Reason to Stop at ADM: [facility] ORDERS Apixaban (Eliquis) 2.5 MG TABLET 1 TAB PO BID BLOOD THINNER (Reported) Aspirin (Aspirin*) 81 MG TAB.CHEW 81 MG PO DAILY heart Atorvastatin Calcium 80 MG TABLET 80 MG PO 1700 CHOLESTROL Budesonide (Pulmicort) 0.5 MG/2 ML AMPUL.NEB 1 Vial INH/AMOS BID BREATHING PROBLEMS (Reported) Diltiazem HCl (Diltiazem 12HR ER) 90 MG CAP.ER.12H 1 CAP PO DAILY HEART ( Reported) Escitalopram Oxalate (Lexapro) 10 MG TABLET 1 TAB PO DAILY MENTAL HEALTH ( Reported) Fluticasone/Salmeterol (Advair 250-50 Diskus) 1 EACH BLST.W.DEV 1 PUF INH BID COPD (Reported) Reason to Stop at ADM: [facility] NEB ORDERS Furosemide (Lasix) 20 MG TABLET 0.5 TAB PO DAILY FLUID OVERLOAD (Reported) Guaifenesin (Guaifenesin ER) 600 MG TAB.ER.12H 600 MG PO Q12 COUGH Levalbuterol HCl (Xopenex) 1.25 MG/3 ML VIAL.NEB 1 VIAL INH TID BREATHING PROBLEMS (Reported) Levalbuterol HCl (Xopenex) 1.25 MG/3 ML VIAL.NEB 1 VIAL INH Q4-PRN PRN SHORTNESS OF BREATH (Reported) Loratadine 10 MG TABLET 10 MG PO DAILY ALLERGIES Lorazepam (Ativan) 0.5 MG TABLET 0.25 MG PO BID PRN ANXIETY/INSOMNIA Melatonin 5 MG TABLET 10 MG PO AT BEDTIME SLEEP Prednisone 20 MG TABLET 1 TAB PO DAILY COPD (Reported) Saliva Substitute Combo No.9 (Biotene) 473 ML MOUTHWASH 2 SPRAY PO Q2P PRN DRY MOUTH Tiotropium [place] (Spiriva) 18 MCG CAP.W.DEV 1 CAP INH DAILY COPD (Reported) Reason to Stop at ADM: [facility] NEB ORDER (ABBY PACHECO MD) Past History Travel History Traveled to [place] past 21 day No Medical History Any Pertinent Medical History? 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 MOTHER FH: breast cancer Hx Contributory? No (FRANCISCO CLIFFORD,BROWN King) Review of Systems Review of Systems Constitutional: Reports: no symptoms. EENTM: Reports: no symptoms. Respiratory: Reports: see HPI. Cardiovascular: Reports: no symptoms. GI: Reports: no symptoms. Genitourinary: Reports: no symptoms. Musculoskeletal: Reports: no symptoms. Skin: Reports: no symptoms. Neurological/Psychological: Reports: no symptoms. Hematologic/Endocrine: Reports: no symptoms. Immunologic/Allergic: Reports: no symptoms. All Other Systems: Reviewed and Negative (FRANCISCO CLIFFORD,BROWN King) Physical Exam Physical Exam Respiratory: SEE BELOW Comments: Gen.: Well-nourished, well-developed, no acute respiratory distress. Thin to cachectic appearing Head: Normocephalic, atraumatic. Eyes: Normal inspection bilaterally Ears: Normal inspection bilaterally Nose: Normal inspection Throat/mouth : Moist mucosa Neck: Supple, full range of motion, no goiter Heart: Regular rate and rhythm, no murmurs rubs or gallops Lungs: Severely diminished breath sounds bilaterally with faint end expiratory wheezes Chest: Nontender Back: Normal range of motion Abdomen: Soft, nontender, nondistended, normal bowel sounds Extremities: Normal range of motion grossly, equal radial pulses, no cyanosis clubbing or edema Neurologic: Cranial nerves grossly intact, awake, alert but not conversant Skin: warm and dry Psychiatric: Unable to assess (FRANCISCO CLIFFORD,BROWN King) Core Measures ACS in differential dx? No Severe Sepsis Present: No Septic Shock Present: No (ABBY PACHECO MD) Progress Differential Diagnosis: asthma, AMI, bronchitis, CHF, COPD, pneumonia Plan of Care: Orders Procedure Date/time Status Regular Diet 02/14 L Complete Regular Diet 02/14 D Active Skin/Pressure Ulcer Assess (Sk 02/14 1144 Active Pathway - chart 02/14 1108 Active Patient Data 02/14 1108 Active Code Status 02/14 1108 Active OXYGEN SETUP (GEN) 02/14 1100 Complete Patient Data 02/14 0814 Active AEROSOL (GEN) 02/14 0806 Complete OXYGEN SETUP (GEN) 02/14 0756 Active Saline Lock 02/14 0756 Active Admit to inpatient 02/14 0756 Active Vital Signs 02/14 0756 Active Activity/Ambulation 02/14 0756 Active Code Status 02/14 0756 Complete Intake & Output 02/14 0724 Active BLOOD CULTURE 02/14 0539 Active BIPAP 02/14 0511 Complete BLOOD CULTURE 02/14 0507 Active ARTERIAL BLOOD GAS (GEN) 02/14 0458 Active TROPONIN LEVEL 02/14 0458 Complete CBC WITHOUT DIFFERENTIAL 02/14 0458 Complete B-TYPE NATRIURETIC PEP (BNP) 02/14 0458 Complete BASIC METABOLIC PANEL 02/14 0458 Complete EKG 02/14 0458 Active TRC EVALUATION (GEN) 02/14 UNK Active BIPAP 02/14 UNK Complete House Staff 02/14 UNK Active VTE Mechanical Prophylaxis 02/[address] CHEST WO IV CONTRAST 02/14 UNK Active Current Medications Sig/Kirill Start time Last Medication Dose Stop Time Status Admin Aspirin 81 MG DAILY 02/15 1000 AC (Aspirin) Cefoxitin Sodium 1,000 MG DAILY 02/15 1000 AC (Mefoxin) Escitalopram Oxalate 10 MG DAILY 02/15 1000 AC (Lexapro) Methylprednisolone 40 MG Q12 02/15 1000 AC (Solumedrol) Apixaban 2.5 MG BID 02/14 2200 AC (Eliquis) Guaifenesin 600 MG Q12 02/14 220 AC (Mucinex) Melatonin 10 MG AT BEDTIME 02/14 220 AC (Melatonin) Atorvastatin Calcium 80 MG 1700 02/14 1700 AC (Lipitor) Glycerin 2 SPRAY Q2P PRN 02/14 1200 AC ([place] Moisturizing Mouth [place]) Lorazepam 0.25 MG BID PRN 02/14 1200 AC (Ativan) 02/21 1159 Diltiazem HCl 90 MG DAILY 02/14 1149 AC 02/14 (Cardizem SR) 1254 Sodium Chloride 1,000 ML SEE RATE 02/14 1100 AC (Normal Saline 0.9%) Laboratory Tests 02/14/17 0615: pH 7.37, pCO2 49 H, pO2 83, HCO3 28, ABG O2 Sat (Measured) 94.0 L, P-50 (Temp Corrected) Y, Carboxyhemoglobin 0.6 L, O2 Concentration % 100%, Temperature 97.6, Respiration Rate 24, O2 Delivery Method VISION-FFM, Vent Mode ST, Expiratory Pressure 6, Inspiratory Pressure 16, Phlebotomy Draw Site LEFT RADIAL 02/14/17 0506: Anion Gap 10, Estimated GFR > 60, BUN/Creatinine Ratio 54.0 H, Glucose 168 H, Calcium 8.9, Troponin I 0.04, Fug-B-Cyerpgjnfqm Pept 497 H, CBC w Diff NO MAN DIFF REQ, RBC 4.96, MCV 85.7, MCH 27.7, RDW 18.5 H, MPV 7.7, Gran % 92.2 H, Lymphocytes % 3.3 L, Monocytes % 4.4, Eosinophils % 0, Basophils % 0.1, Absolute Granulocytes 30.6 H, Absolute Lymphocytes 1.1 L, Absolute Monocytes 1.4 H, Absolute Eosinophils 0, Absolute Basophils 0, PUBS MCHC 32.4 L Microbiology 02/15 548 BLOOD: Blood Culture - RECD 02/14 541 BLOOD: Blood Culture - RECD 02/15 528 BLOOD: Blood Culture - RECD Diagnostic Imaging: Discussed w/RAD: Radiology Read. CXR Impression: PATIENT: YISEL JAUREGUI PRESENT AGE: 77 PATIENT ACCOUNT NO: [id number] : 41 LOCATION: [facility] ORDERING PHYSICIAN: BROWN SINGH MD SERVICE DATE: 02/14/17 EXAM TYPE: RAD - XRY-PORTABLE CHEST XRAY EXAMINATION: XR PORTABLE CHEST CLINICAL INFORMATION: Dyspnea. History of COPD. COMPARISON: 02/15/2017 TECHNIQUE: Portable frontal view of the chest was obtained. FINDINGS: Severe bullous emphysema is again seen in both lungs with marked architectural distortion and hyperlucency of the lungs as well as flattened hemidiaphragms. Consolidation at the medial aspect of the right lung base is significantly increased from prior. Possible trace right effusion. No left-sided effusion. Appreciable pneumothorax. Cardiac mediastinal contour is unchanged. Bones are osteopenic. IMPRESSION: Increased consolidation in the medial aspect of the right lung base, concerning for pneumonia. Severe emphysema DICTATED BY: BARBI MONTES MD DATE/TIME DICTATED:02/14/17555 CERTIFIED APPLIANCE SERVICE TECHNICIAN:AMANDA DATE/TIME TRANSCRIBED:02/14/17555 CONFIDENTIAL, DO NOT COPY WITHOUT APPROPRIATE AUTHORIZATION. <Electronically signed in Other Vendor System> SIGNED BY: BARBI MONTES MD 02/14/17 0601 Initial ED EKG: SINUS TACHYCARDIA WITH PREMATURE ATRIAL CONTRACTIONS, NO CHANGE COMPARED WITH PREVIOUS. Comments: The respiratory therapist has been contacted regarding initiation of BiPAP. 02/14/2017 7:19:18 AM patient has improved considerably with BiPAP. She is more awake and alert with an improved chest excursion and oxygen saturation. Although she has an amoxicillin allergy she has had cefuroxime in the past. I feel she will be capable of taking Mefoxin for her pneumonia. Her multiple antibiotic allergies has made antibiotic selection challenging. Awaiting call back from the hospitalist. 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 (BROWN SINGH MD) Rhythm Strip: sinus tachycardia (ABBY PACHECO MD) Departure Departure Condition: Stable Referrals: CHI LEY MD (PCP/Family) Departure Forms: Customer Survey General Discharge Information (BROWN SINGH MD) Departure Disposition: STILL A PATIENT Clinical Impression Primary Impression: Pneumonia Secondary Impressions: COPD exacerbation Admission Note Spoke With: CHI LEY MD Documentation of Exam: Documentation of any treatments & extenuating circumstances including Concerns Regarding Discharge (functional status, medication knowledge or non-compliance, living conditions, etc.) that warrant an admission rather than observation: Supplemental oxygen IV steroids IV antibiotics pulmonary evaluation medication adjustment continuing care discharge planning. (ABBY PACHECO MD) Critical Care Note Critical Care Note Critical Care Time: 30-74 min (BROWN SINGH MD)
--- NOTE | 2017-02-14 05:00 | NUR ---
O2 SAT CONTINUES 84-86
--- NOTE | 2017-02-14 05:04 | NUR ---
RT HERE PLACED ON BIPAP
[2017-02-14 05:21] LABS: ABSOLUTE BASOPHIL COUNT 0 /CUMM (0.0-0.2); ABSOLUTE EOSINOPHIL COUNT 0 /CUMM (0.0-0.7); ABSOLUTE GRANULOCYTE CT 30.6 /CUMM (1.4-6.5); ABSOLUTE LYMPH COUNT 1.1 /CUMM (1.2-3.4); ABSOLUTE MONOCYTE COUNT 1.4 /CUMM (0.10-0.60); BASOPHIL % 0.1 % (0.0-2.0); EOSINOPHIL % 0 % (0-5); HEMATOCRIT 42.5 % (37-47); MEAN CORPUSCULAR HGB 27.7 PG (27.0-31.0); MEAN CORPUSCULAR HGB CONC 32.4 G/DL (33.0-37.0); MEAN CORPUSCULAR VOLUME 85.7 FL (81.0-99.0); MEAN PLATELET VOLUME 7.7 FL (7.4-10.4); PLATELET COUNT 400 /CUMM (130-400); RBC DISTRIBUTION WIDTH 18.5 % (11.5-14.5); RED BLOOD CELL CT 4.96 /CUMM (4.20-5.40)
[2017-02-14 05:34] LABS: GRANULOCYTE % 92.2 % (42.2-75.2)
[2017-02-14 05:36] LABS: WHITE BLOOD CELL COUNT 33.2 /CUMM (4.8-10.8)
--- NOTE | 2017-02-14 05:36 | NUR ---
CRITICAL TEST RESULTS [id number] YISEL JAUREGUI 77 F TESTS AND RESULTS: WBC 33.2 Results received and read back by: DALE LUNDY Results received date and time: 02/14/17 0537 The following provider was notified of the results, and read the results back: DR SINGH Notified date and time: 02/14/17 at 0542
--- NOTE | 2017-02-14 06:01 | RADIOLOGY REPORT ---
EXAMINATION: XR PORTABLE CHEST CLINICAL INFORMATION: Dyspnea. History of COPD. COMPARISON: 02/15/2017 TECHNIQUE: Portable frontal view of the chest was obtained. FINDINGS: Severe bullous emphysema is again seen in both lungs with marked architectural distortion and hyperlucency of the lungs as well as flattened hemidiaphragms. Consolidation at the medial aspect of the right lung base is significantly increased from prior. Possible trace right effusion. No left-sided effusion. Appreciable pneumothorax. Cardiac mediastinal contour is unchanged. Bones are osteopenic. IMPRESSION: Increased consolidation in the medial aspect of the right lung base, concerning for pneumonia. Severe emphysema
--- NOTE | 2017-02-14 07:15 | NUR ---
ASSUMED CARE. PT RESTING ON STRETCHER. TOLERATING BIPAP OK. PT ASKING "HOW MUCH LONGER?" Informed waiting has been performed. VSS.
--- NOTE | 2017-02-14 07:40 | NUR ---
RT CALLED FOR NEB.
--- NOTE | 2017-02-14 07:50 | NUR ---
RT AT BEDSIDE FOR NEB.
--- NOTE | 2017-02-14 07:59 | NUR ---
DR PACHECO IN TO REVIEW POC. ANTICIPATE ADMISSION.
[2017-02-14] MEDS ORDERED: XOPENEX1.25 MG/1 INH ×2 (08:05→08:06)
[2017-02-14] MEDS ORDERED: PULMICORT0.5 MG/21 INH/SOL (08:07)
[2017-02-14] MEDS ORDERED: LEXAPRO10 M1 PO (08:08)
[2017-02-14] MEDS ORDERED: PREDNISONE20 M1 PO (08:09)
--- NOTE | 2017-02-14 08:36 | History & Physical ---
See Addendum General Information and HPI MD Statement: I have seen and personally examined YISEL JAUREGUI and documented this H&P. The patient is a 77 year old F who presented with a patient stated chief complaint of shortness of breath Source of Information: family, old records Exam Limitations: clinical condition History of Present Illness: 76-year-old woman from [place] with a past medical history of COPD on 1.5-2 L of oxygen at home, atrial fibrillation on Eliquis, left lung cancer status post radiation in September 2015, anxiety, depression, osteoporosis BIBA for episode of desaturation at the ECF. She apparently desaturated 67% which did not improve with increasing O2. Denies fever, chills, cough. Multiple attempts made to [place] for collateral history unable to make contact with anyone. Allergies/Medications Allergies: Coded Allergies: levofloxacin (Mild, LEGS FELT TIGHT 12/17/16) amoxicillin (ANAPHYLAXIS 12/17/16) clarithromycin (UNKNOWN - PT DOESNT REMEMBER WAS TOLD BY MD NOT TO TAKE 12/17/16 ) doxycycline (GI UPSET 12/28/16) Home Med list Albuterol Sulfate 0.63 MG/3 ML VIAL.NEB 1 Vial INH/AMOS TID COPD (Reported) Reason to Stop at ADM:TR ORDERS Albuterol Sulfate (Proair Respiclick) 90 MCG AER.POW.BA 2 PUFF INH Q4-6 PRN COPD Reason to Stop at ADM: [facility] NEB ORDERS Apixaban (Eliquis) 2.5 MG TABLET 1 TAB PO BID BLOOD THINNER (Reported) Aspirin (Aspirin*) 81 MG TAB.CHEW 81 MG PO DAILY heart Atorvastatin Calcium 80 MG TABLET 80 MG PO 1700 CHOLESTROL Budesonide (Pulmicort) 0.5 MG/2 ML AMPUL.NEB 1 Vial INH/AMOS BID BREATHING PROBLEMS (Reported) Diltiazem HCl (Diltiazem 12HR ER) 90 MG CAP.ER.12H 1 CAP PO DAILY HEART ( Reported) Escitalopram Oxalate (Lexapro) 10 MG TABLET 1 TAB PO DAILY MENTAL HEALTH ( Reported) Fluticasone/Salmeterol (Advair 250-50 Diskus) 1 EACH BLST.W.DEV 1 PUF INH BID COPD (Reported) Reason to Stop at ADM: [facility] NEB ORDERS Furosemide (Lasix) 20 MG TABLET 0.5 TAB PO DAILY FLUID OVERLOAD (Reported) Guaifenesin (Guaifenesin ER) 600 MG TAB.ER.12H 600 MG PO Q12 COUGH Levalbuterol HCl (Xopenex) 1.25 MG/3 ML VIAL.NEB 1 VIAL INH TID BREATHING PROBLEMS (Reported) Levalbuterol HCl (Xopenex) 1.25 MG/3 ML VIAL.NEB 1 VIAL INH Q4-PRN PRN SHORTNESS OF BREATH (Reported) Loratadine 10 MG TABLET 10 MG PO DAILY ALLERGIES Lorazepam (Ativan) 0.5 MG TABLET 0.25 MG PO BID PRN ANXIETY/INSOMNIA Melatonin 5 MG TABLET 10 MG PO AT BEDTIME SLEEP Prednisone 20 MG TABLET 1 TAB PO DAILY COPD (Reported) Saliva Substitute Combo No.9 (Biotene) 473 ML MOUTHWASH 2 SPRAY PO Q2P PRN DRY MOUTH Tiotropium [place] (Spiriva) 18 MCG CAP.W.DEV 1 CAP INH DAILY COPD (Reported) Reason to Stop at ADM: [facility] NEB ORDER Compliance With Home Meds: GOOD Past History Travel History Traveled to [place] past 21 day No Medical History Neurological: NONE EENT: allergies, POST NASAL DRIP Cardiovascular: AFIB Respiratory: COPD, emphysema, pneumonia, 1.5-2L NC DEP @ HOME Gastrointestinal: NONE Hepatic: NONE Renal: NONE Musculoskeletal: osteoporosis Psychiatric: anxiety, depression Endocrine: NONE Blood Disorders: NONE Cancer(s): LEFT 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 MOTHER FH: breast cancer Psychosocial History Who Do You Live With? child Services at Home: Nursing, Oxygen Primary Language: Kiswahili Living Will? yes Functional Ability ADLs Independent: dressing, eating, toileting, bathing. Ambulation: independent IADLs Independent: finances, telephone, medication admin. Needs Assist: shopping, housework, food prep, transportation. Review of Systems Review of Systems Constitutional: Reports: malaise, weakness. Denies: chills, diaphoresis, fever, unexplained weight loss. Cardiovascular: Denies: chest pain, edema, orthopena, palpitations, peripheral edema, syncope. Respiratory: Reports: short of breath. GI: Denies: abdominal pain, bloating, constipation, diarrhea, distention, bowel incontinence, melena, nausea, bloody stool, changes in stool, vomiting, steatorrhea. Genitourinary: Denies: discharge, dysuria, frequency, hematuria, hesitation, nocturia, pain, urgency. Exam & Diagnostic Data Last 24 Hrs of Vital Signs/I&O Vital Signs Date Time Temp Pulse Resp B/P B/P Pulse O2 O2 Flow FiO2 Mean Ox Delivery Rate 02/14 1502 Nasal 5.0L Cannula 02/14 1501 94 Nasal 5.0L Cannula 02/14 1254 110 22 129/70 02/14 0918 96.0 110 24 100/74 99 BIPAP 02/14 0759 100 BIPAP 100% 02/14 0758 124 100 02/14 0724 96.4 114 24 128/90 98 BIPAP 02/14 0620 131 93 02/14 0604 97.6 128 24 133/84 94 BIPAP 100% 02/14 0507 128 93 02/14 0443 97.1 108 24 172/91 83 Aerosol 10L Mask Intake & Output 02/14 1600 02/14 0800 02/14 0000 Intake Total Output Total Balance Patient 99 lb 15.99 oz 99 lb 15.99 oz Weight Weight Reported by Patient Measurement Method Physical Exam General Appearance Alert, Oriented X3, Moderate Distress, severely cachetic Skin Temp/Moisture Exam: Cool/Dry HEENT Atraumatic, dry mucous membranes, left eye pupil dilated and mildly reactive Neck Supple Cardiovascular Normal S1, Normal S2, tachycardic Lungs b/l diminished breath sounds Extremities No Edema Last 24 Hrs of Labs/Mannie: Laboratory Tests 02/14/17 0615: pH 7.37, pCO2 49 H, pO2 83, HCO3 28, ABG O2 Sat (Measured) 94.0 L, P-50 (Temp Corrected) Y, Carboxyhemoglobin 0.6 L, O2 Concentration % 100%, Temperature 97.6, Respiration Rate 24, O2 Delivery Method VISION-FFM, Vent Mode ST, Expiratory Pressure 6, Inspiratory Pressure 16, Phlebotomy Draw Site LEFT RADIAL 02/14/17 0506: Anion Gap 10, Estimated GFR > 60, BUN/Creatinine Ratio 54.0 H, Glucose 168 H, Calcium 8.9, Troponin I 0.04, Puz-F-Mkpvucpgrem Pept 497 H, CBC w Diff NO MAN DIFF REQ, RBC 4.96, MCV 85.7, MCH 27.7, RDW 18.5 H, MPV 7.7, Gran % 92.2 H, Lymphocytes % 3.3 L, Monocytes % 4.4, Eosinophils % 0, Basophils % 0.1, Absolute Granulocytes 30.6 H, Absolute Lymphocytes 1.1 L, Absolute Monocytes 1.4 H, Absolute Eosinophils 0, Absolute Basophils 0, PUBS MCHC 32.4 L Microbiology 02/14 1558 URINE ROUT: Legionella Antigen - COLB 02/14 1558 URINE ROUT: Streptococcus pneumoniae Antigen (M - COLB 02/14 1558 LOWER RESP: Respiratory Culture - COLB 02/14 1558 LOWER RESP: Gram Stain - COLB 02/15 548 BLOOD: Blood Culture - RECD 02/14 541 BLOOD: Blood Culture - RECD 02/15 528 BLOOD: Blood Culture - RECD Diagnostic Data EKG Results sinus tachycardia CXR Results FINDINGS: Severe bullous emphysema is again seen in both lungs with marked architectural distortion and hyperlucency of the lungs as well as flattened hemidiaphragms. Consolidation at the medial aspect of the right lung base is significantly increased from prior. Possible trace right effusion. No left-sided effusion. Appreciable pneumothorax. Cardiac mediastinal contour is unchanged. Bones are osteopenic. Assessment/Plan Assessment: 76-year-old woman from [place] with a past medical history of COPD on 1.5-2 L of oxygen at home, atrial fibrillation on Eliquis, left lung cancer status post radiation in September 2015, anxiety, depression, osteoporosis, recently admitted to [facility] on 01/31/17 episode of syncope BIBA for episode of desaturation at the ECF. Vitals at the time of admission blood pressure 100/74, respiratory rate of 24, tachycardic to 110, afebrile saturating 91% on 3 L of oxygen via nasal cannula. Labs were pertinent for leukocytosis with a white blood cell count 33,200, H&H of 13.8/42.5, normal platelet count of 400,000. Serum chemistries revealed a sodium of 143, potassium of 4.0, bicarbonate of 34, anion gap of 10, BUN 27 with a creatinine of 0.5. Serum glucose elevated to 168. proBNP of 168. CXR pertinant for increasing consolidation in the medial aspect of the right lung base, concerning for pneumonia. ED course: Was started on BiPAP for work of breathing was given Solu-Medrol IV 25 mg and IV cefoxitin Assessement: Acute hypoxic respiratory failure mostly likely secondary to HCAP, PE is less likely as she is already on Eliquis and there is a more likely explanation for her hypoxia like pneumonia (leucocytosis and consolidation on imaging). Plan Admit to general medicine floor as observation for the following issues: Acute hypoxic respiratory failure/end stage COPD She was started on BiPAP in the ED for workup of breathing will taper if possible will continue with IV 40mg IV solu Medrol twice a day ATC Resp care/[facility] pulmonology consulted HCAP meets sirs criteria will continue with cefoxtin and consult ID f/up sputum, legionell and strep Ag f/up blood cultures Atrial fibrillation Continue Eliquis, Diltiazem and aspirin Depression and anxiety Continue Ativan and Lexapro DVT prophylaxis with Eliquis Heart healthy diet CODE STATUS: Discussed ventilation as well as CPR with the patient, she indicated that she did not wish any aggressive measures and did not want to be intubated or resuscitated. DNR/DNI As Ranked By This Provider Problem List: 1. COPD exacerbation 2. Atrial fibrillation 3. Pneumonia 4. Leukocytosis Core Measures/Miscellaneous Acute Coronary Syndrome ACS Diagnosis: No Cerebrovascular Accident CVA/TIA Diagnosis: No Congestive Heart Failure CHF Diagnosis: No VTE (View Protocol) VTE Risk Factors: Age > 40, Immobility, paresis [facility] prophylaxis d/t: No contraindications No VTE Pharm Prophylaxis d/t: No contraindications VTE Diagnosis: No VTE Type: NONE VTE Confirmed by (Test): NONE Sepsis (View Protocol) Severe Sepsis Present: No Septic Shock Septic Shock Present: No Miscellaneous Documentation Attending Case Discussed With: CHI LEY MD Primary Care Physician: CHI LEY MD Patient sees these Specialists Dr. Guevara Level of Patient Care: General Medicine Observation Initial Note - I have personally examined YISEL JAUREGUI on 02/14/17 at 1725. The disposition of YISEL JAUREGUI is uncertain at this time and before a determination can be made, she requires a period of observation for the following reasons [desaturation]
--- NOTE | 2017-02-14 08:54 | NUR ---
HOUSESTAFF AT BEDSIDE.
--- NOTE | 2017-02-14 09:42 | Admission Certification ---
Admission Certification Certification Statement - As attending physician, I certify that at the time of - admission, based on clinical presentation, severity of - symptoms, need for further diagnostic testing and - therapeutic interventions, and risk of adverse outcomes - without in-hospital treatment, in my clinical assessment, - this patient requires an acute hospital stay for a minimum - of two nights or longer. I have also considered psychsocial - factors such as support system, advanced age, financial - issues, cognitive issues, and failed out-patient treatments, - past re-admission history, safety of patient, and lack of - compliance as applicable. Specific rationale supporting this admission is: worsening SOB and hypoxemia pneunonia on CXR COPD
--- NOTE | 2017-02-14 09:44 | PN- Att Addend ---
Attending Addendum Attending Brief Note 77 year old female at rehab, her SOB last evening was worse her oxygen saturations dropped to the low 80s despite treatments and being on steroids came to the ER CXR shows a new infitrate will admit treat accordingly and have pulmonary see the patient. Laboratory Tests 02/14 02/14 0615 0506 Blood Gas pH (7.35 - 7.45 PH) 7.37 pCO2 (35 - 45 TORR) 49 H pO2 (80 - 100 TORR) 83 HCO3 (21 - 28 MEQ/L) 28 ABG O2 Sat (Measured) (>96.0 %) 94.0 L P-50 (Temp Corrected) Y Carboxyhemoglobin (1.5 - 5.0 %) 0.6 L O2 Concentration % 100% Temperature (97.0 - 100.0 FARH) 97.6 Respiration Rate (BPM) 24 O2 Delivery Method VISION-FFM Vent Mode ST Expiratory Pressure (CM H2O P) 6 Inspiratory Pressure (CM H2O P) 16 Chemistry Sodium (137 - 145 mmol/L) 143 Potassium (3.5 - 5.1 mmol/L) 4.0 Chloride (98 - 107 mmol/L) 99 Carbon Dioxide (22 - 30 mmol/L) 34 H Anion Gap (5 - 16) 10 BUN (7 - 17 mg/dL) 27 H Creatinine (0.5 - 1.0 mg/dL) 0.5 Estimated GFR (>60 ml/min) > 60 BUN/Creatinine Ratio (7 - 25 %) 54.0 H Glucose (65 - 99 mg/dL) 168 H Calcium (8.4 - 10.2 mg/dL) 8.9 Troponin I (< 0.11 ng/ml) 0.04 Xhj-N-Itgoizwffur Pept (<125 pg/mL) 497 H Hematology CBC w Diff NO MAN DIFF REQ WBC (4.8 - 10.8 /CUMM) 33.2 *H RBC (4.20 - 5.40 /CUMM) 4.96 Hgb (12.0 - 16.0 G/DL) 13.8 Hct (37 - 47 %) 42.5 MCV (81.0 - 99.0 FL) 85.7 MCH (27.0 - 31.0 PG) 27.7 RDW (11.5 - 14.5 %) 18.5 H Plt Count (130 - 400 /CUMM) 400 MPV (7.4 - 10.4 FL) 7.7 Gran % (42.2 - 75.2 %) 92.2 H Lymphocytes % (20.5 - 51.1 %) 3.3 L Monocytes % (1.7 - 9.3 %) 4.4 Eosinophils % (0 - 5 %) 0 Basophils % (0.0 - 2.0 %) 0.1 Absolute Granulocytes (1.4 - 6.5 /CUMM) 30.6 H Absolute Lymphocytes (1.2 - 3.4 /CUMM) 1.1 L Absolute Monocytes (0.10 - 0.60 /CUMM) 1.4 H Absolute Eosinophils (0.0 - 0.7 /CUMM) 0 Absolute Basophils (0.0 - 0.2 /CUMM) 0 PUBS MCHC (33.0 - 37.0 G/DL) 32.4 L Miscellaneous Phlebotomy Draw Site LEFT RADIAL note increase in WBC.
--- NOTE | 2017-02-14 10:15 | NUR ---
PT MOVED TO POD 3, ROOM 21 VIA STRETCHER. REPORT HANDED OFF TO MYKE DAILY.
--- NOTE | 2017-02-14 10:44 | NUR ---
TRIAL OFF BI-PAP AT PRESENT, O2 ON AT 4L NASAL CANNULA.
--- NOTE | 2017-02-14 10:48 | NUR ---
TOLERATING O2 AND ICE CHIPS, C/O NAUSEA.
--- NOTE | 2017-02-14 11:03 | NUR ---
MEDICATED FOR NAUSEA.
--- NOTE | 2017-02-14 11:21 | NUR ---
PANTS REMOVED, RED AREA NOTED ON LEFT BUTTOCK, MEDIPLEX DRESSING NOTED ON R BUTTOCK, DARK RED SCAR NOTED ON COCCYX.
--- NOTE | 2017-02-14 11:30 | NUR ---
PT ATE CUP OF APPLESAUCE AND TOLERATED WELL.
--- NOTE | 2017-02-14 12:53 | Cons- Pulmonary ---
General Information and HPI Consulting Request Date of Consult: 02/14/17 Requested By: Dr. Gallagher Reason for Consult: hypoxemia, right lung base pna Source of Information: patient Exam Limitations: no limitations History of Present Illness: 77 year old woman. Recent admission. From [place]. Hx of severe o2 dependent COPD. A.fib on eliquis. Hx of lung ca. Hx of radiation 09/2015. Anxiety, OP, depression. Presents from [place] for dyspnea. Found to have increased consolidation right lung base medial aspect. Wbc 33.2. Multiple drug allergies, has been started on Cefoxitin. she is afebrile, tachycardic, was trialed on bipap to reduce work of breathing No chills, no n/v/d/c. No cp. Allergies/Medications Allergies: Coded Allergies: levofloxacin (Mild, LEGS FELT TIGHT 12/17/16) amoxicillin (ANAPHYLAXIS 12/17/16) clarithromycin (UNKNOWN - PT DOESNT REMEMBER WAS TOLD BY MD NOT TO TAKE 12/17/16 ) doxycycline (GI UPSET 12/28/16) Home Med List: Albuterol Sulfate 0.63 MG/3 ML VIAL.NEB 1 Vial INH/AMOS TID COPD (Reported) Reason to Stop at ADM:TR ORDERS Albuterol Sulfate (Proair Respiclick) 90 MCG AER.POW.BA 2 PUFF INH Q4-6 PRN COPD Reason to Stop at ADM: [facility] NEB ORDERS Apixaban (Eliquis) 2.5 MG TABLET 1 TAB PO BID BLOOD THINNER (Reported) Aspirin (Aspirin*) 81 MG TAB.CHEW 81 MG PO DAILY heart Atorvastatin Calcium 80 MG TABLET 80 MG PO 1700 CHOLESTROL Budesonide (Pulmicort) 0.5 MG/2 ML AMPUL.NEB 1 Vial INH/AMOS BID BREATHING PROBLEMS (Reported) Diltiazem HCl (Diltiazem 12HR ER) 90 MG CAP.ER.12H 1 CAP PO DAILY HEART ( Reported) Escitalopram Oxalate (Lexapro) 10 MG TABLET 1 TAB PO DAILY MENTAL HEALTH ( Reported) Fluticasone/Salmeterol (Advair 250-50 Diskus) 1 EACH BLST.W.DEV 1 PUF INH BID COPD (Reported) Reason to Stop at ADM: [facility] NEB ORDERS Furosemide (Lasix) 20 MG TABLET 0.5 TAB PO DAILY FLUID OVERLOAD (Reported) Guaifenesin (Guaifenesin ER) 600 MG TAB.ER.12H 600 MG PO Q12 COUGH Levalbuterol HCl (Xopenex) 1.25 MG/3 ML VIAL.NEB 1 VIAL INH TID BREATHING PROBLEMS (Reported) Levalbuterol HCl (Xopenex) 1.25 MG/3 ML VIAL.NEB 1 VIAL INH Q4-PRN PRN SHORTNESS OF BREATH (Reported) Loratadine 10 MG TABLET 10 MG PO DAILY ALLERGIES Lorazepam (Ativan) 0.5 MG TABLET 0.25 MG PO BID PRN ANXIETY/INSOMNIA Melatonin 5 MG TABLET 10 MG PO AT BEDTIME SLEEP Prednisone 20 MG TABLET 1 TAB PO DAILY COPD (Reported) Saliva Substitute Combo No.9 (Biotene) 473 ML MOUTHWASH 2 SPRAY PO Q2P PRN DRY MOUTH Tiotropium M[employer] (Spiriva) 18 MCG CAP.W.DEV 1 CAP INH DAILY COPD (Reported) Reason to Stop at ADM: TRC NEB ORDER Current Medications: Current Medications Sig/Kirill Start time Last Medication Dose Route Stop Time Status Admin Albuterol Sulfate 3 ML ONCE ONE 02/14 730 DC 02/14 INH 02/14 0731 0757 Apixaban 2.5 MG BID 02/14 2200 AC PO Aspirin 81 MG DAILY 02/15 1000 AC PO Atorvastatin Calcium 80 MG 1700 02/14 1700 AC PO Cefoxitin Sodium 1,000 MG DAILY 02/15 1000 UNVr IV Cefoxitin Sodium 1,000 MG ONCE ONE 02/14 0730 DC 02/14 IV 02/14 0731 0759 Diltiazem HCl 90 MG DAILY 02/14 1149 AC PO Escitalopram Oxalate 10 MG DAILY 02/15 1000 AC PO Glycerin 2 SPRAY Q2P PRN 02/14 1200 AC PO Guaifenesin 600 MG Q12 02/14 2200 AC PO Ipratropium Mouthcard 2.5 ML ONCE ONE 02/14 0730 DC 02/14 INH 02/14 0731 0757 Lorazepam 0.25 MG BID PRN 02/14 1200 AC PO 02/21 1159 Melatonin 10 MG AT BEDTIME 02/14 2200 AC PO Methylprednisolone 0 .STK-MED ONE 02/14 0806 DC .ROUTE Methylprednisolone 125 MG ONCE ONE 02/14 0800 DC 02/14 IV 02/14 0801 0808 Ondansetron HCl 0 .STK-MED ONE 02/14 1104 DC .ROUTE Ondansetron HCl 4 MG ONCE ONE 02/14 1100 DC 02/14 IV 02/14 1101 1103 Sodium Chloride 1,000 ML SEE RATE 02/14 1100 AC IV Past History Travel History Traveled to [place] past 21 day No Medical History Neurological: NONE EENT: allergies, POST NASAL DRIP Cardiovascular: AFIB Respiratory: COPD, emphysema, pneumonia, 1.5-2L NC DEP @ HOME Gastrointestinal: NONE Hepatic: NONE Renal: NONE Musculoskeletal: osteoporosis Psychiatric: anxiety, depression Endocrine: NONE Blood Disorders: NONE Cancer(s): LEFT LUNG CANCER S/P RADIATION SEPTEMBER 2015 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 MOTHER FH: breast cancer Psychosocial History Who Do You Live With? child Services at Home: Nursing, Oxygen Primary Language: [place] Islander Smoking Status: Former Smoker Living Will? yes Functional Ability ADLs Independent: dressing, eating, toileting, bathing. Ambulation: independent IADLs Independent: finances, telephone, medication admin. Needs Assist: shopping, housework, food prep, transportation. Exam & Diagnostic Data Last 24 Hrs of Vital Signs/I&O Vital Signs Date Time Temp Pulse Resp B/P B/P Pulse O2 O2 Flow FiO2 Mean Ox Delivery Rate 02/14 0918 96.0 110 24 100/74 99 BIPAP 02/14 0759 100 BIPAP 100% 02/14 0758 124 100 02/14 0724 96.4 114 24 128/90 98 BIPAP 02/14 0620 131 93 02/14 0604 97.6 128 24 133/84 94 BIPAP 100% 02/14 0507 128 93 02/14 0443 97.1 108 24 172/91 83 Aerosol 10L Mask Intake & Output 02/14 1600 02/14 0800 02/14 0000 Intake Total Output Total Balance Patient 99 lb 15.99 oz 99 lb 15.99 oz Weight Weight Reported by Patient Measurement Method Physical Exam Other Physical Findings: gen awake and alert heent ncat cvs s1, s2 lungs rare rhonchi abd soft bs+ ext without edema Last 48 Hrs of Labs/Mannie: Laboratory Tests 02/14/17 0615: pH 7.37, pCO2 49 H, pO2 83, HCO3 28, ABG O2 Sat (Measured) 94.0 L, P-50 (Temp Corrected) Y, Carboxyhemoglobin 0.6 L, O2 Concentration % 100%, Temperature 97.6, Respiration Rate 24, O2 Delivery Method VISION-FFM, Vent Mode ST, Expiratory Pressure 6, Inspiratory Pressure 16, Phlebotomy Draw Site LEFT RADIAL 02/14/17 0506: Anion Gap 10, Estimated GFR > 60, BUN/Creatinine Ratio 54.0 H, Glucose 168 H, Calcium 8.9, Troponin I 0.04, Jrq-O-Wihaglanpgi Pept 497 H, CBC w Diff NO MAN DIFF REQ, RBC 4.96, MCV 85.7, MCH 27.7, RDW 18.5 H, MPV 7.7, Gran % 92.2 H, Lymphocytes % 3.3 L, Monocytes % 4.4, Eosinophils % 0, Basophils % 0.1, Absolute Granulocytes 30.6 H, Absolute Lymphocytes 1.1 L, Absolute Monocytes 1.4 H, Absolute Eosinophils 0, Absolute Basophils 0, PUBS MCHC 32.4 L Assessment/Plan Impression/Plan: Impression 77 year old woman. Recent admission. From [place]. Hx of severe o2 dependent COPD. A.fib on eliquis. Hx of lung ca. Hx of radiation 09/2015. Anxiety, OP, depression. Presents from [place] for dyspnea. Found to have increased consolidation right lung base medial aspect. Wbc 33.2. Multiple drug allergies, has been started on Cefoxitin. she is afebrile, tachycardic, was trialed on bipap to reduce work of breathing No chills, no n/v/d/c. No cp. * Right lung base pna - unclear if aspiration vs cap vs hcap * COPD exacerbation and hypoxemic/hypercarbic respiratory failure Plan -TRC/Nebs -CT chest without contrast -begin solumedrol 40mg iv bid -consider ID consultation given multiple drug allergies and significant leukocytosis -sputum cx, legionella ag, strep ag -monitor off bipap DNR/DNI DVT prophylaxis at all times (On Eliquis) Consult Acknowledgment - Thank you for your consult request.
--- NOTE | 2017-02-14 13:22 | NUR ---
PT TO CT
--- NOTE | 2017-02-14 13:25 | NUR ---
PT RETURNED FROM CT
--- NOTE | 2017-02-14 14:55 | NUR ---
RESP TX HERE, TX IN PROGRESS.
--- NOTE | 2017-02-14 17:56 | CT SCAN REPORT ---
EXAMINATION: CT CHEST WITHOUT CONTRAST CLINICAL INFORMATION: Hypoxia. Evaluate for consolidation. COMPARISON: Chest x-ray dated 02/14/2017. CTA of the chest dated 02/03/2017, 12/19/2016, 08/31/2016, 05/03/2016, 01/03/2016, 08/20/2015, 07/02/2015 and 04/27/2015. TECHNIQUE: Multidetector volumetric CT imaging of the chest was obtained noncontrast. Sagittal and coronal reformations were obtained. DLP: 196.87 mGy-cm. FINDINGS: LUNGS: Again seen is marked bullous emphysematous change nearly completely replacing both upper lobes. There is a stable irregular paramediastinal opacity seen extending from the hilum to the anterior and posterior pleural surfaces into the left upper lobe and superior segment of left lower lobe with associated traction bronchiectasis, consistent with post radiation fibrosis. Prominent tracheobronchial calcifications is seen. The central airways are enlarged. There is a large 1.8 x 1.2 cm filling defect seen within the distal trachea at the vahid, measuring 21 Hounsfield units, likely representing inspissated endotracheal debris/mucus. There are extensive filling defects seen in the lobar and segmental airways of both lower lobes with complete occlusion of the medial and posterior basal segmental airways leading to dense parenchymal consolidation in both lower lobes. Surrounding adjacent patchy parenchymal opacities and groundglass opacities are seen. Findings are suspicious for combination of atelectasis and pneumonia due to endobronchial mucous/debris inspissation and occlusion. There are some nodular density seen in the lungs, with the most prominent nodules including the followin. Left upper lobe, measuring 0.7 x 0.3 cm (series 4, image 129), new compared to prior exam. 2. Right upper lobe, 0.2 cm (series 4, image 211). Scattered calcified granulomas are noted. LYMPHOVASCULAR STRUCTURES: Ascending aorta ectatic, measuring 2.7 cm in maximal AP diameter at the level of the right main pulmonary artery. Mild atherosclerotic calcifications of the aorta and coronary arteries. Enlargement of the central pulmonary arteries is seen. Heart size normal. No pericardial effusion. No mediastinal, hilar or axillary adenopathy or free fluid collection. THYROID GLAND: Unremarkable to the extent included. ESOPHAGUS: There is fullness at the GE junction, consistent with a hiatal hernia. The esophagus is dilated and demonstrates a air-fluid level, suggestive of marked GE reflux. This may predispose the patient to retrograde aspiration. UPPER ABDOMEN: A 0.5 cm low-attenuation mass in the subcapsular location in segment 2 of the liver (series 2, image 57) is unchanged dating back to 07/02/2015, consistent with a benign cyst. A 1 cm incompletely imaged low-attenuation mass in the mid right kidney is consistent with a cyst, unchanged from prior exams. Previously seen smaller upper pole right renal cyst is not appreciated on this noncontrast study with beam hardening artifact additionally obscuring assessment. Left kidney, spleen and pancreas unremarkable to the extent seen. Both adrenal glands mildly hypertrophied. BONES: There is diffuse osteopenia with approximately 40% wedge compression deformity of the T7 vertebral body, unchanged. Multilevel mild vertebral spondylosis is seen. Moderate degenerative disc disease is seen in the upper lumbar spine. IMPRESSION: 1. Large filling defects are seen within the distal trachea at the vahid and in both lower lobe segmental and subsegmental airways with complete endobronchial occlusion of the posterior and medial basal segmental airways. Resultant postobstructive dense consolidation is seen in both lower lobes. Findings may be related to infectious pneumonia. Alternatively, given the abnormally dilated and fluid-filled esophagus with air-fluid level, the possibility of gastroesophageal reflux and retrograde silent and recurrent aspiration into the airways with postobstructive consolidation is possible. Close clinical correlation is requested with follow-up CT scan post treatment to document resolution of findings. 2. Extensive emphysematous lung disease with secondary pulmonary arterial hypertension. 3. 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 No definite evidence of evolving mass in this location. 4. New 0.7 x 0.3 cm nodular density in the left lung apex. Follow-up evaluation in 3 months is recommended for reassessment.
--- NOTE | 2017-02-14 21:25 | Cons- Infect Disease ---
General Information and HPI Consulting Request Date of Consult: 02/14/17 Requested By: CHI LEY MD Reason for Consult: Abx advice Source of Information: patient, primary team Exam Limitations: clinical condition History of Present Illness: 76-year-old woman from [place] with a past medical history of COPD on 1.5-2 L of oxygen at home, atrial fibrillation on Eliquis, left lung cancer status post radiation in September 2015, anxiety, depression, osteoporosis presented to the ED by ambulance from [facility] with hypoxemia She apparently desaturated 67% which did not improve with increasing O2. Denies fever, chills, or productive cough. Found to have increased consolidation right lung base medial aspect on CXR. Abnormal blood work with elevated WBC (leukemoid reaction). Remains hypoxemic and very SOB. Brings up small amount of yellow sputum. Allergies/Medications Allergies: Coded Allergies: levofloxacin (Mild, LEGS FELT TIGHT 12/17/16) amoxicillin (ANAPHYLAXIS 12/17/16) clarithromycin (UNKNOWN - PT DOESNT REMEMBER WAS TOLD BY MD NOT TO TAKE 12/17/16 ) doxycycline (GI UPSET 12/28/16) Home Med List: Albuterol Sulfate 0.63 MG/3 ML VIAL.NEB 1 Vial INH/AMOS TID COPD (Reported) Reason to Stop at ADM:[facility] ORDERS Albuterol Sulfate (Proair Respiclick) 90 MCG AER.POW.BA 2 PUFF INH Q4-6 PRN COPD Reason to Stop at ADM: [facility] NEB ORDERS Apixaban (Eliquis) 2.5 MG TABLET 1 TAB PO BID BLOOD THINNER (Reported) Aspirin (Aspirin*) 81 MG TAB.CHEW 81 MG PO DAILY heart Atorvastatin Calcium 80 MG TABLET 80 MG PO 1700 CHOLESTROL Budesonide (Pulmicort) 0.5 MG/2 ML AMPUL.NEB 1 Vial INH/AMOS BID BREATHING PROBLEMS (Reported) Diltiazem HCl (Diltiazem 12HR ER) 90 MG CAP.ER.12H 1 CAP PO DAILY HEART ( Reported) Escitalopram Oxalate (Lexapro) 10 MG TABLET 1 TAB PO DAILY MENTAL HEALTH ( Reported) Fluticasone/Salmeterol (Advair 250-50 Diskus) 1 EACH BLST.W.DEV 1 PUF INH BID COPD (Reported) Reason to Stop at ADM: [facility] NEB ORDERS Furosemide (Lasix) 20 MG TABLET 0.5 TAB PO DAILY FLUID OVERLOAD (Reported) Guaifenesin (Guaifenesin ER) 600 MG TAB.ER.12H 600 MG PO Q12 COUGH Levalbuterol HCl (Xopenex) 1.25 MG/3 ML VIAL.NEB 1 VIAL INH TID BREATHING PROBLEMS (Reported) Levalbuterol HCl (Xopenex) 1.25 MG/3 ML VIAL.NEB 1 VIAL INH Q4-PRN PRN SHORTNESS OF BREATH (Reported) Loratadine 10 MG TABLET 10 MG PO DAILY ALLERGIES Lorazepam (Ativan) 0.5 MG TABLET 0.25 MG PO BID PRN ANXIETY/INSOMNIA Melatonin 5 MG TABLET 10 MG PO AT BEDTIME SLEEP Prednisone 20 MG TABLET 1 TAB PO DAILY COPD (Reported) Saliva Substitute Combo No.9 (Biotene) 473 ML MOUTHWASH 2 SPRAY PO Q2P PRN DRY MOUTH Tiotropium [place] (Spiriva) 18 MCG CAP.W.DEV 1 CAP INH DAILY COPD (Reported) Reason to Stop at ADM: [facility] NEB ORDER Current Medications: Current Medications Sig/Kirill Start time Last Medication Dose Route Stop Time Status Admin Albuterol Sulfate 3 ML TID 02/14 1600 AC 02/14 INH 2033 Albuterol Sulfate 3 ML ONCE ONE 02/14 730 DC 02/14 INH 02/14 0731 0757 Apixaban 2.5 MG BID 02/14 2200 AC PO Aspirin 81 MG DAILY 02/15 1000 AC PO Atorvastatin Calcium 80 MG 1700 02/14 1700 AC 02/14 PO 1745 Cefoxitin Sodium 1,000 MG DAILY 02/15 1000 AC IV Cefoxitin Sodium 1,000 MG ONCE ONE 02/14 730 DC 02/14 IV 02/14 0731 0759 Diltiazem HCl 90 MG DAILY 02/14 1149 AC 02/14 PO 1254 Escitalopram Oxalate 10 MG DAILY 02/15 1000 AC PO Glycerin 2 SPRAY Q2P PRN 02/14 1200 AC PO Guaifenesin 600 MG Q12 02/14 2200 AC PO Ipratropium [place] 2.5 ML ONCE ONE 02/14 0730 DC 02/14 INH 02/14 0731 0757 Lorazepam 0.25 MG BID PRN 02/14 1200 AC PO 02/21 1159 Melatonin 10 MG AT BEDTIME 02/14 2200 AC PO Methylprednisolone 40 MG Q12 02/15 1000 AC IV Methylprednisolone 0 .STK-MED ONE 02/14 0806 DC .ROUTE Methylprednisolone 125 MG ONCE ONE 02/14 0800 DC 02/14 IV 02/14 0801 0808 Ondansetron HCl 0 .STK-MED ONE 02/14 1104 DC .ROUTE Ondansetron HCl 4 MG ONCE ONE 02/14 1100 DC 02/14 IV 02/14 1101 1103 Sodium Chloride 1,000 ML SEE RATE 02/14 1100 AC IV Past History Travel History Traveled to [place] past 21 day No Medical History Neurological: NONE EENT: allergies, POST NASAL DRIP Cardiovascular: AFIB Respiratory: COPD, emphysema, pneumonia, 1.5-2L NC DEP @ HOME Gastrointestinal: NONE Hepatic: NONE Renal: NONE Musculoskeletal: osteoporosis Psychiatric: anxiety, depression Endocrine: NONE Blood Disorders: NONE Cancer(s): LEFT LUNG CANCER S/P RADIATION SEPTEMBER 2015 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 MOTHER FH: breast cancer Psychosocial History Who Do You Live With? child Services at Home: Nursing, Oxygen Primary Language: [place] Smoking Status: Former Smoker Living Will? yes Functional Ability ADLs Independent: dressing, eating, toileting, bathing. Ambulation: independent IADLs Independent: finances, telephone, medication admin. Needs Assist: shopping, housework, food prep, transportation. Review of Systems Comments 12 points reviewed as noted, otherwise negative. Exam & Diagnostic Data Last 24 Hrs of Vital Signs/I&O Vital Signs Date Time Temp Pulse Resp B/P B/P Pulse O2 O2 Flow FiO2 Mean Ox Delivery Rate 02/14 2034 93 Nasal 5.0L Cannula 02/14 1502 Nasal 5.0L Cannula 02/14 1501 94 Nasal 5.0L Cannula 02/14 1254 110 22 129/70 02/14 0918 96.0 110 24 100/74 99 BIPAP 02/14 0759 100 BIPAP 100% 02/14 0758 124 100 02/14 0724 96.4 114 24 128/90 98 BIPAP 02/14 0620 131 93 02/14 0604 97.6 128 24 133/84 94 BIPAP 100% 02/14 0507 128 93 02/14 0443 97.1 108 24 172/91 83 Aerosol 10L Mask Intake & Output 02/14 1600 02/14 0800 02/14 0000 Intake Total Output Total Balance Patient 99 lb 15.99 oz 99 lb 15.99 oz Weight Weight Reported by Patient Measurement Method Physical Exam Other Physical Findings: General Appearance Alert, Oriented X3, Moderate Distress, severely cachetic Skin Temp/Moisture Exam: Cool/Dry HEENT Atraumatic, dry mucous membranes, left eye pupil dilated and mildly reactive Neck Supple Cardiovascular Normal S1, Normal S2, tachycardic Lungs b/l diminished breath sounds Abd: BS present, NT Extremities No Edema Last 24 Hours of Lab Results: Laboratory Tests 02/14 02/14 0615 0506 Blood Gas pH (7.35 - 7.45 PH) 7.37 pCO2 (35 - 45 TORR) 49 H pO2 (80 - 100 TORR) 83 HCO3 (21 - 28 MEQ/L) 28 ABG O2 Sat (Measured) (>96.0 %) 94.0 L P-50 (Temp Corrected) Y Carboxyhemoglobin (1.5 - 5.0 %) 0.6 L O2 Concentration % 100% Temperature (97.0 - 100.0 FARH) 97.6 Respiration Rate (BPM) 24 O2 Delivery Method VISION-FFM Vent Mode ST Expiratory Pressure (CM H2O P) 6 Inspiratory Pressure (CM H2O P) 16 Chemistry Sodium (137 - 145 mmol/L) 143 Potassium (3.5 - 5.1 mmol/L) 4.0 Chloride (98 - 107 mmol/L) 99 Carbon Dioxide (22 - 30 mmol/L) 34 H Anion Gap (5 - 16) 10 BUN (7 - 17 mg/dL) 27 H Creatinine (0.5 - 1.0 mg/dL) 0.5 Estimated GFR (>60 ml/min) > 60 BUN/Creatinine Ratio (7 - 25 %) 54.0 H Glucose (65 - 99 mg/dL) 168 H Calcium (8.4 - 10.2 mg/dL) 8.9 Troponin I (< 0.11 ng/ml) 0.04 Kza-S-Yhxlvgsract Pept (<125 pg/mL) 497 H Hematology CBC w Diff NO MAN DIFF REQ WBC (4.8 - 10.8 /CUMM) 33.2 *H RBC (4.20 - 5.40 /CUMM) 4.96 Hgb (12.0 - 16.0 G/DL) 13.8 Hct (37 - 47 %) 42.5 MCV (81.0 - 99.0 FL) 85.7 MCH (27.0 - 31.0 PG) 27.7 RDW (11.5 - 14.5 %) 18.5 H Plt Count (130 - 400 /CUMM) 400 MPV (7.4 - 10.4 FL) 7.7 Gran % (42.2 - 75.2 %) 92.2 H Lymphocytes % (20.5 - 51.1 %) 3.3 L Monocytes % (1.7 - 9.3 %) 4.4 Eosinophils % (0 - 5 %) 0 Basophils % (0.0 - 2.0 %) 0.1 Absolute Granulocytes (1.4 - 6.5 /CUMM) 30.6 H Absolute Lymphocytes (1.2 - 3.4 /CUMM) 1.1 L Absolute Monocytes (0.10 - 0.60 /CUMM) 1.4 H Absolute Eosinophils (0.0 - 0.7 /CUMM) 0 Absolute Basophils (0.0 - 0.2 /CUMM) 0 PUBS MCHC (33.0 - 37.0 G/DL) 32.4 L Miscellaneous Phlebotomy Draw Site LEFT RADIAL Last 24 Hours of Mannie Results: C #: [id number] GUILHERME: 02/14/17 STATUS: RECD RECD: 02/14/17 [facility] DR: FRANCISCO CLIFFORD,BROWN King SOURCE: BLOOD ENTR: 02/14/[address] [facility] [address]: JIL CLIFFORD, CHI SPDESC: 2ND/VENOUS ORDERED: BLOOD CULTURE Procedure Result BLOOD CULTURE PENDING Diagnostic Data Recent Imaging Findings: SERVICE DATE: 02/14/17- EXAM TYPE: CAT - CT CHEST WO IV CONTRAST EXAMINATION: CT CHEST WITHOUT CONTRAST CLINICAL INFORMATION: Hypoxia. Evaluate for consolidation. COMPARISON: Chest x-ray dated 02/14/2017. CTA of the chest dated 02/03/2017, 12/19/2016, 08/31/2016, 05/03/2016, 01/03/2016, 08/20/2015, 07/02/2015 and 04/27/2015. TECHNIQUE: Multidetector volumetric CT imaging of the chest was obtained noncontrast. Sagittal and coronal reformations were obtained. DLP: 196.87 mGy-cm. FINDINGS: LUNGS: Again seen is marked bullous emphysematous change nearly completely replacing both upper lobes. There is a stable irregular paramediastinal opacity seen extending from the hilum to the anterior and posterior pleural surfaces into the left upper lobe and superior segment of left lower lobe with associated traction bronchiectasis, consistent with post radiation fibrosis. Prominent tracheobronchial calcifications is seen. The central airways are enlarged. There is a large 1.8 x 1.2 cm filling defect seen within the distal trachea at the vahid, measuring 21 Hounsfield units, likely representing inspissated endotracheal debris/mucus. There are extensive filling defects seen in the lobar and segmental airways of both lower lobes with complete occlusion of the medial and posterior basal segmental airways leading to dense parenchymal consolidation in both lower lobes. Surrounding adjacent patchy parenchymal opacities and groundglass opacities are seen. Findings are suspicious for combination of atelectasis and pneumonia due to endobronchial mucous/debris inspissation and occlusion. There are some nodular density seen in the lungs, with the most prominent nodules including the followin. Left upper lobe, measuring 0.7 x 0.3 cm (series 4, image 129), new compared to prior exam. 2. Right upper lobe, 0.2 cm (series 4, image 211). Scattered calcified granulomas are noted. LYMPHOVASCULAR STRUCTURES: Ascending aorta ectatic, measuring 2.7 cm in maximal AP diameter at the level of the right main pulmonary artery. Mild atherosclerotic calcifications of the aorta and coronary arteries. Enlargement of the central pulmonary arteries is seen. Heart size normal. No pericardial effusion. No mediastinal, hilar or axillary adenopathy or free fluid collection. THYROID GLAND: Unremarkable to the extent included. ESOPHAGUS: There is fullness at the GE junction, consistent with a hiatal hernia. The esophagus is dilated and demonstrates a air-fluid level, suggestive of marked GE reflux. This may predispose the patient to retrograde aspiration. UPPER ABDOMEN: A 0.5 cm low-attenuation mass in the subcapsular location in segment 2 of the liver (series 2, image 57) is unchanged dating back to 07/02/2015, consistent with a benign cyst. A 1 cm incompletely imaged low-attenuation mass in the mid right kidney is consistent with a cyst, unchanged from prior exams. Previously seen smaller upper pole right renal cyst is not appreciated on this noncontrast study with beam hardening artifact additionally obscuring assessment. Left kidney, spleen and pancreas unremarkable to the extent seen. Both adrenal glands mildly hypertrophied. BONES: There is diffuse osteopenia with approximately 40% wedge compression deformity of the T7 vertebral body, unchanged. Multilevel mild vertebral spondylosis is seen. Moderate degenerative disc disease is seen in the upper lumbar spine. IMPRESSION: 1. Large filling defects are seen within the distal trachea at the vahid and in both lower lobe segmental and subsegmental airways with complete endobronchial occlusion of the posterior and medial basal segmental airways. Resultant postobstructive dense consolidation is seen in both lower lobes. Findings may be related to infectious pneumonia. Alternatively, given the abnormally dilated and fluid-filled esophagus with air-fluid level, the possibility of gastroesophageal reflux and retrograde silent and recurrent aspiration into the airways with postobstructive consolidation is possible. Close clinical correlation is requested with follow-up CT scan post treatment to document resolution of findings. 2. Extensive emphysematous lung disease with secondary pulmonary arterial hypertension. 3. 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 No definite evidence of evolving mass in this location. 4. New 0.7 x 0.3 cm nodular density in the left lung apex. Follow-up evaluation in 3 months is recommended for reassessment. DICTATED BY: JAMAL CLIFFORD,GUCCI Severino DATE/TIME DICTATED:02/14/171611 ARCH SUPPORT MAKER:AMANDA DATE/TIME TRANSCRIBED:02/14/171611 Assessment/Plan Assessment/Plan Impression: 76-year-old woman from [place] with a past medical history of COPD on 1.5-2 L of oxygen at home, atrial fibrillation on Eliquis, left lung cancer status post radiation in September 2015, anxiety, depression, osteoporosis admitted 02/14/17 with : 1. Postobstructive pneumonia; Ct chest revealed [] endobronchial occlusion of the posterior and medial basal segmental airways [] resultant postobstructive dense consolidation is seen in both lower lobes 2. Leukemoid reaction 3. [place] to amoxicillin Suggestion: 1. Obtain sputum cx if productive cough; f/u pulm recom; if feasible bronchoscopy/BAL cultures for bacterial, fungal, mycobactetrial cultures. 2. Empiric abx HCAP coverage w/ iv vancomycin 15 mg/kg q 12 h (goal trough 15-20 ) and ceftazidime 1 gm iv q 8 h. D/c cefoxitin. 3. Trend CBC/BMP. LDH in am. Consult Acknowledgment - Thank you for your consult request.
--- NOTE | 2017-02-14 22:04 | NUR ---
REPORT GIVEN TO NURSE RADHA BENITEZ. PT TO 2NA
--- NOTE | 2017-02-14 22:18 | NUR ---
PT IS ALERT AND ORIENTED X 3. SHE WAS ADMITTED FROM THE EMERGENCY ROOM FROM [facility]. SHE WAS SENT TO HOSPITAL FOR 02 SATURATION OF 67%. SHE IS CURRENTLY ON 5 LITERS OF NASAL CANNULA AT THIS TIME. HER 02 SATURATION IS NOW 85% AND SHE IS DOING PURSED LIP BREATHING TO HELP HER RELAX. WE CALLED RESPIRATORY AND PT HAD A BREATHING TREATMENT AT 1999 AND IS DUE FOR HER NEXT TREATMENT AT 2329. PT DENIES ANY PAIN AT THIS TIME AND IS RESTING COMFORTABLE. SHE HAS CRACKLES IN ALL LOBES UPON AUSCULTATION WITH EXPIRATORY WHEEZING. HER SON IS AT THE BEDSIDE. SHE HAD A TEGADERM TO HER RIGHT BUTTOCKS FOR A WOUND THAT IS HEALING AND ALSO HAS A SMALL OPENING IN HER SKIN ON HER COCCYX.
[2017-02-14 22:22] VITALS: BP 110/60
[2017-02-15 06:50] VITALS: BP 120/64
--- NOTE | 2017-02-15 08:19 | PN- Housestaff ---
YEYO BENAVIDES 02/15/17 0819: Subjective Follow-up For: Acute hypoxic respiratory failure Subjective: Seen and examined patient. Some improvement from yesterday however she continues to be in moderate respiratory distress. Continues to have poor by mouth intake. Denies fever, chills, chest pain. Review of Systems Constitutional: Reports: malaise, weakness. Denies: chills, diaphoresis, fever, unexplained weight loss. Cardiovascular: Denies: chest pain, edema, orthopena, palpitations, peripheral edema, syncope. Respiratory: Reports: cough, short of breath, stridor, wheezing. Gastrointestinal: Denies: abdominal pain, bloating, constipation, diarrhea, distention, bowel incontinence, melena, nausea, bloody stool, changes in stool, vomiting, steatorrhea. Genitourinary: Denies: discharge, dysuria, frequency, hematuria, hesitation, nocturia, pain, urgency. Objective Last 24 Hrs of Vital Signs/I&O Vital Signs Date Time Temp Pulse Resp B/P B/P Pulse O2 O2 Flow FiO2 Mean Ox Delivery Rate 02/15 0800 Nasal 6.0L Cannula 02/15 0650 98.2 84 22 120/64 96 Nasal 6.0L Cannula 02/15 0145 91 Nasal 6.0L Cannula 02/15 0131 95 91 02/15 0030 93 Nasal Cannula 02/15 0000 93 Nasal 5.0L Cannula 02/14 2222 97.5 101 19 110/60 85 Nasal Cannula 02/14 2206 85 Nasal 5.0L Cannula 02/14 2034 93 Nasal 5.0L Cannula 02/14 1502 Nasal 5.0L Cannula 02/14 1501 94 Nasal 5.0L Cannula 02/14 1254 110 22 129/70 Intake & Output 02/15 1600 02/15 0800 02/15 0000 Intake Total Output Total Balance Patient 100 lb Weight Physical Exam General Appearance: Alert, Oriented X3, Cooperative, Moderate Distress Cardiovascular: Normal S1, Normal S2 Lungs: bilateral coarse rhonchi in all areas Abdomen: Normal Bowel Sounds, Soft, No Tenderness Extremities: No Edema Current Medications: Current Medications Sig/Kirill Start time Last Medication Dose Route Stop Time Status Admin Albuterol Sulfate 2 PUF Q4 02/15 1030 UNVr INH Albuterol Sulfate 3 ML TID 02/14 1600 AC 02/15 INH 0723 Apixaban 2.5 MG BID 02/14 2200 AC 02/15 PO 0125 Aspirin 81 MG DAILY 02/15 1000 AC PO Atorvastatin Calcium 80 MG 1700 02/14 1700 AC 02/14 PO 1745 Budesonide/ 2 PUF BID 02/15 1045 UNVr Formoterol Fumarate INH Cefoxitin Sodium 1,000 MG DAILY 02/15 1000 CAN IV Ceftazidime 1,000 MG Q12H 02/15 0800 AC 02/15 IV 0950 Diltiazem HCl 90 MG DAILY 02/14 1149 AC 02/14 PO 1254 Escitalopram Oxalate 10 MG DAILY 02/15 1000 AC PO Glycerin 2 SPRAY Q2P PRN 02/14 1200 AC PO Guaifenesin 600 MG Q12 02/14 2200 AC 02/15 PO 0126 Lorazepam 0.25 MG BID PRN 02/14 1200 AC 02/15 PO 02/21 1159 0127 Melatonin 10 MG AT BEDTIME 02/14 2200 AC PO Methylprednisolone 40 MG Q8 02/15 1400 AC IV Methylprednisolone 40 MG Q12 02/15 1000 DC 02/15 IV 0949 Ondansetron HCl 0 .STK-MED ONE 02/14 1104 DC .ROUTE Ondansetron HCl 4 MG ONCE ONE 02/14 1100 DC 02/14 IV 02/14 1101 1103 Sodium Chloride 1,000 ML .[id number] 02/15 1030 AC IV 02/16 1309 Sodium Chloride 1,000 ML SEE RATE 02/14 1100 AC 02/15 IV 0144 Vancomycin HCl 750 MG BID 02/15 1000 CAN IV Vancomycin HCl 750 MG DAILY 02/15 1000 AC 02/15 Sodium Chloride 250 ML IV 0957 Last 24 Hrs of Lab/Mannie Results Last 24 Hrs of Labs/Mics: Microbiology 02/14 1800 URINE ROUT: Legionella Antigen - COMP 02/14 1800 URINE ROUT: Streptococcus pneumoniae Antigen (M - COMP 02/14 1558 LOWER RESP: Respiratory Culture - COLB 02/14 155 LOWER RESP: Gram Stain - COLB Assessment/Plan Assessment: 76-year-old woman from [place] with a past medical history of COPD on 1.5-2 L of oxygen at home, atrial fibrillation on Eliquis, left lung cancer status post radiation in September 2015, anxiety, depression, osteoporosis, recently admitted to [facility] on 01/31/17 episode of syncope BIBA for episode of desaturation at the ECF. CXR pertinant for increasing consolidation in the medial aspect of the right lung base,concerning for pneumonia. CT chest without contrast significant for endotracheal debris/mucus, extensive filling defects seen in the lobar and segmental airways of both lower lobes with complete occlusion of the medial and posterior basal segmental airways leading to dense parenchymal consolidation in both lower lobes. Acute hypoxic respiratory failure/end stage COPD saturating 96% on 6 L NC will increase IV 40mg IV solu Medrol to q8hrs ATC Resp care/neb, acapella pulmonology on board, appreciate recomendations. Patient does not wish to proceed with a bronchoscopy at this time. HCAP/aspiration ID on board, recomending IV vancomycin and fortaz will obtain formal swallow eval f/up sputum, legionella and strep Ag negative f/up blood cultures Atrial fibrillation Continue Eliquis, Diltiazem and aspirin Depression and anxiety Continue Ativan and Lexapro DVT prophylaxis with Eliquis Heart healthy diet DNR/DNI Problem List: 1. Acute and chronic respiratory failure with hypoxia 2. COPD exacerbation 3. Hospital-acquired pneumonia 4. Atrial fibrillation Pain Ratin Pain Location: na Pain Goal: Pain 4 or less Pain Plan: current regimen Tomorrow's Labs & Rationales: cbc JOSE CLIFFORD,[facility] 02/15/17 1836: Attending MD Review Statement Attending Statement Attending MD Statement: examined this patient, discuss w/resident/PA/CAN RUNNER, agreed w/resident/PA/CAN RUNNER, discussed with family, reviewed EMR data (avail), discussed with nursing, discussed with case mgmt, reviewed images, amended to note Attending Assessment/Plan: anxiety dyspnea and cough declines any procedures such as bronchoscopy which can lead to intubation IMPRESSION PNA COPD REsp failure REc cont current meds iv abx per id will follow
--- NOTE | 2017-02-15 12:01 | PN- Pulmonary ---
Subjective HPI/Critical Care Issues: pt seen and examined anxiety dyspnea and cough declines any procedures such as bronchoscopy which can lead to intubation Objective Current Medications: Current Medications Sig/Kirill Start time Last Medication Dose Route Stop Time Status Admin Albuterol Sulfate 2 PUF Q4P PRN 02/15 1030 AC INH Albuterol Sulfate 3 ML TID 02/14 1600 AC 02/15 INH 0723 Apixaban 2.5 MG BID 02/14 2200 AC 02/15 PO 1118 Aspirin 81 MG DAILY 02/15 1000 AC 02/15 PO 1118 Atorvastatin Calcium 80 MG 1700 02/14 1700 AC 02/14 PO 1745 Budesonide/ 2 PUF BID 02/15 1045 AC Formoterol Fumarate INH Cefoxitin Sodium 1,000 MG DAILY 02/15 1000 CAN IV Ceftazidime 1,000 MG Q12H 02/15 0800 AC 02/15 IV 0950 Diltiazem HCl 90 MG DAILY 02/14 1149 AC 02/15 PO 1118 Escitalopram Oxalate 10 MG DAILY 02/15 1000 AC PO Glycerin 2 SPRAY Q2P PRN 02/14 1200 AC PO Guaifenesin 600 MG Q12 02/14 2200 AC 02/15 PO 1119 Lorazepam 0.25 MG BID PRN 02/14 1200 AC 02/15 PO 02/21 1159 0127 Melatonin 10 MG AT BEDTIME 02/14 2200 AC PO Methylprednisolone 40 MG Q8 02/15 1400 AC IV Methylprednisolone 40 MG Q12 02/15 1000 DC 02/15 IV 0949 Sodium Chloride 1,000 ML .[id number] 02/15 1030 AC IV 02/16 1309 Sodium Chloride 1,000 ML SEE RATE 02/14 1100 AC 02/15 IV 0144 Vancomycin HCl 750 MG BID 02/15 1000 CAN IV Vancomycin HCl 750 MG DAILY 02/15 1000 AC 02/15 Sodium Chloride 250 ML IV 0957 Vital Signs & I&O Last 24 Hrs of Vitals and I&O: Vital Signs Date Time Temp Pulse Resp B/P B/P Pulse O2 O2 Flow FiO2 Mean Ox Delivery Rate 02/15 1118 96 122/60 02/15 0800 Nasal 6.0L Cannula 02/15 0650 98.2 84 22 120/64 96 Nasal 6.0L Cannula 02/15 0145 91 Nasal 6.0L Cannula 02/15 0131 95 91 02/15 0030 93 Nasal Cannula 02/15 0000 93 Nasal 5.0L Cannula 02/14 2222 97.5 101 19 110/60 85 Nasal Cannula 02/14 2206 85 Nasal 5.0L Cannula 02/14 2034 93 Nasal 5.0L Cannula 02/14 1502 Nasal 5.0L Cannula 02/14 1501 94 Nasal 5.0L Cannula 02/14 1254 110 22 129/70 Intake & Output 02/15 1600 02/15 0800 02/15 0000 Intake Total Output Total Balance Patient 100 lb Weight Exam Other Physical Findings: gen awake and alert heent ncat cvs s1, s2 lungs rare rhonchi abd soft bs+ ext without edema Impression/Plan Impression/Plan Impression/Plan: Impression 77 year old woman. * Right lung base pna - tx for HCAP * COPD exacerbation and hypoxemic/hypercarbic respiratory failure Plan -TRC/Nebs -CT chest without contrast with debris, aspiration -increase solumedrol to 40mg iv q8h -swallowing evaluaiton -ID appreciated -pt declines bronchoscopy given high risk for intubation DNR/DNI DVT prophylaxis at all times (On Eliquis)
[2017-02-15 12:28] LABS: ABSOLUTE BASOPHIL COUNT 0 /CUMM (0.0-0.2); ABSOLUTE EOSINOPHIL COUNT 0 /CUMM (0.0-0.7); ABSOLUTE GRANULOCYTE CT 21.7 /CUMM (1.4-6.5); ABSOLUTE LYMPH COUNT 0.1 /CUMM (1.2-3.4); ABSOLUTE MONOCYTE COUNT 0.7 /CUMM (0.10-0.60); BASOPHIL % 0 % (0.0-2.0); EOSINOPHIL % 0.2 % (0-5); GRANULOCYTE % 96.3 % (42.2-75.2); MEAN CORPUSCULAR HGB CONC 32.7 G/DL (33.0-37.0); MEAN CORPUSCULAR VOLUME 85.7 FL (81.0-99.0); MEAN PLATELET VOLUME 7.7 FL (7.4-10.4); PLATELET COUNT 289 /CUMM (130-400); RBC DISTRIBUTION WIDTH 18.5 % (11.5-14.5); RED BLOOD CELL CT 4.13 /CUMM (4.20-5.40); WHITE BLOOD CELL COUNT 22.5 /CUMM (4.8-10.8)
[2017-02-15 12:42] LABS: HEMATOCRIT 35.4 % (37-47)
[2017-02-15 14:53] VITALS: BP 122/60
--- NOTE | 2017-02-15 17:36 | PN- Infect Dx ---
Subjective Subjective: Patient still very SOB at rest, + cough. Appears improved from last evening. No fever. Review of Systems Comments: 12 points reviewed as noted, otherwise negative. Objective Last 24 Hrs of Vital Signs/I&O Vital Signs Date Time Temp Pulse Resp B/P B/P Pulse O2 O2 Flow FiO2 Mean Ox Delivery Rate 02/15 1727 Nasal 6.0L Cannula 02/15 1600 92 Nasal 6.0L Cannula 02/15 1453 98.2 96 22 122/60 90 Nasal 6.0L Cannula 02/15 1429 Nasal 6.0L Cannula 02/15 1353 95 Nasal 6.0L Cannula 02/15 1118 96 122/60 02/15 0800 Nasal 6.0L Cannula 02/15 0650 98.2 84 22 120/64 96 Nasal 6.0L Cannula 02/15 0145 91 Nasal 6.0L Cannula 02/15 0131 95 91 02/15 0030 93 Nasal Cannula 02/15 0000 93 Nasal 5.0L Cannula 02/14 2222 97.5 101 19 110/60 85 Nasal Cannula 02/14 2206 85 Nasal 5.0L Cannula 02/14 2034 93 Nasal 5.0L Cannula Intake & Output 02/15 1600 02/15 0800 02/15 0000 Intake Total 865 Output Total Balance 865 Intake, IV 625 Intake, Oral 240 Patient 100 lb Weight Physical Exam Other Physical Findings: General Appearance Alert, Oriented X3, Mild Respiratory Distress, cachetic Skin Temp/Moisture Exam: Cool/Dry, decreased turgor HEENT Atraumatic/NC, temp wasting Neck Supple, no ROSA Cardiovascular Normal S1, Normal S2, tachycardic Lungs b/l diminished breath sounds, improved inspiratory effort, b/l scattered rhonchi Abd: BS present, NT Extremities No Pedal Edema Results Last 24 Hours of Lab Results: Laboratory Tests 02/15 1209 Chemistry Sodium (137 - 145 mmol/L) 145 Potassium (3.5 - 5.1 mmol/L) 4.2 Chloride (98 - 107 mmol/L) 106 Carbon Dioxide (22 - 30 mmol/L) 33 H Anion Gap (5 - 16) 6 BUN (7 - 17 mg/dL) 25 H Creatinine (0.5 - 1.0 mg/dL) 0.5 Estimated GFR (>60 ml/min) > 60 BUN/Creatinine Ratio (7 - 25 %) 50.0 H Lactate Dehydrogenase (313 - 618 U/L) 541 Hematology CBC w Diff MAN DIFF ORDERED WBC (4.8 - 10.8 /CUMM) 22.5 H RBC (4.20 - 5.40 /CUMM) 4.13 L Hgb (12.0 - 16.0 G/DL) 11.6 L Hct (37 - 47 %) 35.4 L MCV (81.0 - 99.0 FL) 85.7 MCH (27.0 - 31.0 PG) 28.0 RDW (11.5 - 14.5 %) 18.5 H Plt Count (130 - 400 /CUMM) 289 MPV (7.4 - 10.4 FL) 7.7 Gran % (42.2 - 75.2 %) 96.3 H Lymphocytes % (20.5 - 51.1 %) 0.5 L Monocytes % (1.7 - 9.3 %) 3.0 Eosinophils % (0 - 5 %) 0.2 Basophils % (0.0 - 2.0 %) 0 L Absolute Granulocytes (1.4 - 6.5 /CUMM) 21.7 H Segmented Neutrophils (42.2 - 75.2 %) 91 H Band Neutrophils (0.0 - 5.0 %) 7 H Absolute Lymphocytes (1.2 - 3.4 /CUMM) 0.1 L Lymphocytes (20.5 - 51.1 %) 1 L Monocytes (1.7 - 9.3 %) 1 L Absolute Monocytes (0.10 - 0.60 /CUMM) 0.7 H Absolute Eosinophils (0.0 - 0.7 /CUMM) 0 Absolute Basophils (0.0 - 0.2 /CUMM) 0 Platelet Estimate (ADEQUATE) VERIFIED BY SMEAR Poikilocytosis 1+ Anisocytosis 1+ Ovalocytes 1+ PUBS MCHC (33.0 - 37.0 G/DL) 32.7 L Last 24 Hours of Mannie Results: BC 02/14 NGTD x2. Recent Imaging Studies: See CXR 02/14/17. Assessment/Plan Impression: 76-year-old woman from [place] with a past medical history of COPD on 1.5-2 L of oxygen at home, atrial fibrillation on Eliquis, left lung cancer status post radiation in September 2015, anxiety, depression, osteoporosis admitted 7/19/17 with : 1. Postobstructive pneumonia; CT chest revealed [] endobronchial occlusion of the posterior and medial basal segmental airways [] resultant postobstructive dense consolidation is seen in both lower lobes 2. Leukemoid reaction 3. [place] to amoxicillin Clinically slightly improved. WBC trending down. Remains afebrile. Suggestion: 1. Obtain sputum cx if productive cough; f/u pulm recom. 2. Empiric abx HCAP coverage w/ iv vancomycin 15 mg/kg q 12 h (goal trough 15-20 ) and ceftazidime 1 gm iv q 8 h. Obtain nasal MRSA surv cx. Vanco trough in am . 3. Trend CBC/BMP.
[2017-02-15 21:42] VITALS: BP 132/74
[2017-02-16 00:20] VITALS: BP 132/70
[2017-02-16 07:04] VITALS: BP 122/72
--- NOTE | 2017-02-16 07:25 | PN- Housestaff ---
Subjective Follow-up For: Acute hypoxic respiratory failure HCAP Subjective: Seen and examined patient. States her respiratory status is about the same as yesterday continues to be respiratory distress at rest. Encouraged by mouth intake. She denies fever, chills, chest pain. Review of Systems Constitutional: Reports: weakness. Denies: chills, diaphoresis, fever, malaise, unexplained weight loss. Cardiovascular: Denies: chest pain, edema, orthopena, palpitations, peripheral edema, syncope. Respiratory: Denies: cough, short of breath, wheezing. Objective Last 24 Hrs of Vital Signs/I&O Vital Signs Date Time Temp Pulse Resp B/P B/P Pulse O2 O2 Flow FiO2 Mean Ox Delivery Rate 02/16 1445 97.8 88 22 112/52 94 Nasal 7.0L Cannula 02/16 1146 92 Nasal 6.0L Cannula 02/16 1117 126/76 02/16 0704 97.6 98 24 122/72 90 Nasal 7.0L Cannula 02/16 0704 74 Nasal 7.0L Cannula 02/16 0020 97.8 93 24 132/70 90 Nasal 7.0L Cannula 02/16 0000 90 Nasal 6.0L Cannula 02/15 2142 97.6 88 18 132/74 97 02/15 1727 Nasal 6.0L Cannula 02/15 1600 92 Nasal 6.0L Cannula Intake & Output 02/16 1600 02/16 0800 02/16 0000 Intake Total 720 1005 Output Total Balance 720 1005 Intake, IV 600 525 Intake, Oral 120 480 Patient 99 lb 15.99 oz Weight Physical Exam General Appearance: Alert, Oriented X3, Cooperative, Moderate Distress, CACHETIC Cardiovascular: Regular Rate, Normal S1, Normal S2 Lungs: B/L COARSE RHONCHI Abdomen: Normal Bowel Sounds, Soft, No Tenderness Extremities: No Edema Current Medications: Current Medications Sig/Kirill Start time Last Medication Dose Route Stop Time Status Admin Albuterol Sulfate 3 ML EVERY 4 HRS/AWAKE 02/15 2000 AC 02/16 INH 1135 Albuterol Sulfate 2 PUF Q4P PRN 02/15 1030 AC INH Albuterol Sulfate 3 ML TID 02/14 1600 DC 02/15 INH 1715 Apixaban 2.5 MG BID 02/14 2200 AC 02/16 PO 1117 Aspirin 81 MG DAILY 02/15 1000 AC 02/16 PO 1117 Atorvastatin Calcium 80 MG 1700 02/14 1700 AC 02/15 PO 1616 Budesonide/ 2 PUF BID 02/15 1045 AC 02/16 Formoterol Fumarate INH 1118 Ceftazidime 1,000 MG Q12H 02/15 0800 AC 02/16 IV 1116 Diltiazem HCl 90 MG DAILY 02/14 1149 AC 02/16 PO 1117 Escitalopram Oxalate 10 MG DAILY 02/15 1000 AC 02/16 PO 1117 Glycerin 2 SPRAY Q2P PRN 02/14 1200 AC PO Guaifenesin 600 MG Q12 02/14 2200 AC 02/16 PO 1117 Lorazepam 0.25 MG BID PRN 02/14 1200 AC 02/16 PO 02/21 1159 1121 Melatonin 10 MG AT BEDTIME 02/14 220 AC 02/16 PO 0123 Methylprednisolone 40 MG Q8 02/15 1400 AC 02/16 IV 1432 Ondansetron HCl 4 MG ONCE ONE 02/15 2200 DC 02/15 IV 02/15 2201 2205 Sodium Chloride 2 SPRAY Q4P PRN 02/15 1215 AC 02/15 MERLE 2239 Sodium Chloride 1,000 ML .[id number] 02/15 1030 DC 02/16 IV 02/16 1309 0123 Sodium Chloride 1,000 ML SEE RATE 02/14 1100 AC 02/15 IV 0144 Tiotropium [place] 1 PUF DAILY 02/16 1000 AC 02/16 INH 1117 Vancomycin HCl 750 MG DAILY 02/15 1000 AC 02/16 Sodium Chloride 250 ML IV 1116 Last 24 Hrs of Lab/Mannie Results Last 24 Hrs of Labs/Mics: Laboratory Tests 02/16/17 0820: CBC w Diff NO MAN DIFF REQ, RBC 3.92 L, MCV 85.9, MCH 28.3, RDW 18.0 H, MPV 7.8, Gran % 96.7 H, Lymphocytes % 0.7 L, Monocytes % 2.6, Eosinophils % 0, Basophils % 0 L, Absolute Granulocytes 17.3 H, Absolute Lymphocytes 0.1 L, Absolute Monocytes 0.5, Absolute Eosinophils 0, Absolute Basophils 0, PUBS MCHC 32.9 L, Vancomycin Trough < 5.0 L 02/15/17 2040: pH 7.43, pCO2 50 H, pO2 59 L, HCO3 32 H, ABG O2 Sat (Measured) 89.0 L, Carboxyhemoglobin 0.2 L, O2 Concentration % 6L, O2 Delivery Method NC, Phlebotomy Draw Site LEFT RADIAL Microbiology 02/16 1940 LOWER RESP: Respiratory Culture - RES GRAM NEGATIVE RODS 02/16 1940 LOWER RESP: Gram Stain - RES Assessment/Plan Assessment: 76-year-old woman from [place] with a past medical history of COPD on 1.5-2 L of oxygen at home, atrial fibrillation on Eliquis, left lung cancer status post radiation in September 2015, anxiety, depression, osteoporosis, recently admitted to [facility] on 01/31/17 episode of syncope BIBA for episode of desaturation at the ECF. CXR pertinant for increasing consolidation in the medial aspect of the right lung base,concerning for pneumonia. CT chest without contrast significant for endotracheal debris/mucus, extensive filling defects seen in the lobar and segmental airways of both lower lobes with complete occlusion of the medial and posterior basal segmental airways leading to dense parenchymal consolidation in both lower lobes. Acute hypoxic respiratory failure/end stage COPD saturating 94% on 7 L NC will continue with IV 40mg IV solu Medrol q8hrs ATC Resp care/neb, acapella pulmonology on board, appreciate recomendations. Patient does not wish to proceed with a bronchoscopy at this time. HCAP/aspiration ID on board, recomending IV vancomycin and fortaz will obtain formal swallow eval sputum culture growing gram neg rods, f/up sensitivitis, legionella and strep Ag negative prelim blood cultures show no growth. Atrial fibrillation Continue Eliquis, Diltiazem and aspirin Depression and anxiety Continue Ativan and Lexapro DVT prophylaxis with Eliquis Heart healthy diet DNR/DNI Problem List: 1. Acute and chronic respiratory failure with hypoxia 2. Healthcare associated bacterial pneumonia Pain Ratin Pain Location: na Pain Goal: Pain 4 or less Pain Plan: current regimen Tomorrow's Labs & Rationales: cbc
[2017-02-16 09:18] LABS: ABSOLUTE BASOPHIL COUNT 0 /CUMM (0.0-0.2); ABSOLUTE EOSINOPHIL COUNT 0 /CUMM (0.0-0.7); ABSOLUTE GRANULOCYTE CT 17.3 /CUMM (1.4-6.5); ABSOLUTE LYMPH COUNT 0.1 /CUMM (1.2-3.4); ABSOLUTE MONOCYTE COUNT 0.5 /CUMM (0.10-0.60); BASOPHIL % 0 % (0.0-2.0); EOSINOPHIL % 0 % (0-5); HEMATOCRIT 33.7 % (37-47); MEAN CORPUSCULAR HGB 28.3 PG (27.0-31.0); MEAN CORPUSCULAR HGB CONC 32.9 G/DL (33.0-37.0); MEAN CORPUSCULAR VOLUME 85.9 FL (81.0-99.0); MEAN PLATELET VOLUME 7.8 FL (7.4-10.4); PLATELET COUNT 231 /CUMM (130-400); RED BLOOD CELL CT 3.92 /CUMM (4.20-5.40); WHITE BLOOD CELL COUNT 17.8 /CUMM (4.8-10.8)
--- NOTE | 2017-02-16 10:29 | PN- Pulmonary ---
Subjective HPI/Critical Care Issues: pt seen and examined leukocytosis yesterday improved, pending wbc today less dyspnea lethargic no cp Objective Current Medications: Current Medications Sig/Kirill Start time Last Medication Dose Route Stop Time Status Admin Albuterol Sulfate 3 ML EVERY 4 HRS/AWAKE 02/15 2000 AC 02/16 INH 0701 Albuterol Sulfate 2 PUF Q4P PRN 02/15 1030 AC INH Albuterol Sulfate 3 ML TID 02/14 1600 DC 02/15 INH 1715 Apixaban 2.5 MG BID 02/14 2200 AC 02/15 PO 2150 Aspirin 81 MG DAILY 02/15 1000 AC 02/15 PO 1118 Atorvastatin Calcium 80 MG 1700 02/14 1700 AC 02/15 PO 1616 Budesonide/ 2 PUF BID 02/15 1045 AC 02/15 Formoterol Fumarate INH 2150 Ceftazidime 1,000 MG Q12H 02/15 0800 AC 02/15 IV 2011 Diltiazem HCl 90 MG DAILY 02/14 1149 AC 02/15 PO 1118 Escitalopram Oxalate 10 MG DAILY 02/15 1000 AC PO Glycerin 2 SPRAY Q2P PRN 02/14 1200 AC PO Guaifenesin 600 MG Q12 02/14 2200 AC 02/15 PO 2150 Lorazepam 0.25 MG BID PRN 02/14 1200 AC 02/15 PO 02/21 1159 2153 Melatonin 10 MG AT BEDTIME 02/14 2200 AC 02/16 PO 0123 Methylprednisolone 40 MG Q8 02/15 1400 AC 02/16 IV 0602 Ondansetron HCl 4 MG ONCE ONE 02/15 2200 DC 02/15 IV 02/15 2201 2205 Patient Medication 1 ED .STK-MED ONE 02/15 1403 DC Teaching ED 02/15 1404 Sodium Chloride 2 SPRAY Q4P PRN 02/15 1215 AC 02/15 MERLE 2239 Sodium Chloride 1,000 ML .[id number] 02/15 1030 AC 02/16 IV 02/16 1309 0123 Sodium Chloride 1,000 ML SEE RATE 02/14 1100 AC 02/15 IV 0144 Tiotropium [place] 1 PUF DAILY 02/16 1000 AC 02/15 INH 1454 Vancomycin HCl 750 MG DAILY 02/15 1000 AC 02/15 Sodium Chloride 250 ML IV 0957 Vital Signs & I&O Last 24 Hrs of Vitals and I&O: Vital Signs Date Time Temp Pulse Resp B/P B/P Pulse O2 O2 Flow FiO2 Mean Ox Delivery Rate 02/16 0704 97.6 98 24 122/72 90 Nasal 7.0L Cannula 02/16 0704 74 Nasal 7.0L Cannula 02/16 0020 97.8 93 24 132/70 90 Nasal 7.0L Cannula 02/16 0000 90 Nasal 6.0L Cannula 02/15 2142 97.6 88 18 132/74 97 02/15 1727 Nasal 6.0L Cannula 02/15 1600 92 Nasal 6.0L Cannula 02/15 1453 98.2 96 22 122/60 90 Nasal 6.0L Cannula 02/15 1429 Nasal 6.0L Cannula 02/15 1353 95 Nasal 6.0L Cannula 02/15 1118 96 122/60 Intake & Output 02/16 1600 02/16 0800 02/16 0000 Intake Total 720 1005 Output Total Balance 720 1005 Intake, IV 600 525 Intake, Oral 120 480 Patient 99 lb 15.99 oz Weight Exam Other Physical Findings: gen feels tired, awake and alert heent cachectic cvs s1, s2 lungs diminished air entry, b/l rhonchi abd soft bs+, thin ext without edema Results Last 24 Hrs of Lab Results: Laboratory Tests 02/16/17 0820: CBC w Diff Pending, WBC Pending, RBC Pending, Hgb Pending, Hct Pending, MCV Pending, MCH Pending, RDW Pending, Plt Count Pending, MPV Pending, Gran % Pending, Lymphocytes % Pending, Monocytes % Pending, Eosinophils % Pending, Basophils % Pending, Absolute Granulocytes Pending, Absolute Lymphocytes Pending , Absolute Monocytes Pending, Absolute Eosinophils Pending, Absolute Basophils Pending, PUBS MCHC Pending, Vancomycin Trough < 5.0 L 02/15/17 2040: pH 7.43, pCO2 50 H, pO2 59 L, HCO3 32 H, ABG O2 Sat (Measured) 89.0 L, Carboxyhemoglobin 0.2 L, O2 Concentration % 6L, O2 Delivery Method NC, Phlebotomy Draw Site LEFT RADIAL 02/15/17 1209: Anion Gap 6, Estimated GFR > 60, BUN/Creatinine Ratio 50.0 H, Lactate Dehydrogenase 541, CBC w Diff MAN DIFF ORDERED, RBC 4.13 L, MCV 85.7, MCH 28.0, RDW 18.5 H, MPV 7.7, Gran % 96.3 H, Lymphocytes % 0.5 L, Monocytes % 3.0, Eosinophils % 0.2, Basophils % 0 L, Absolute Granulocytes 21.7 H, Segmented Neutrophils 91 H, Band Neutrophils 7 H, Absolute Lymphocytes 0.1 L, Lymphocytes 1 L, Monocytes 1 L, Absolute Monocytes 0.7 H, Absolute Eosinophils 0, Absolute Basophils 0, Platelet Estimate VERIFIED BY SMEAR, Poikilocytosis 1+, Anisocytosis 1+, Ovalocytes 1+, PUBS MCHC 32.7 L Impression/Plan Impression/Plan Impression/Plan: Impression 77 year old woman. * Right lung base pna - tx for HCAP * COPD exacerbation and hypoxemic/hypercarbic respiratory failure Plan -TRC/Nebs -maintain solumedrol to 40mg iv q8h -f/u speech/swallow/nutrition -ID appreciated -pt declines bronchoscopy given high risk for intubation DNR/DNI DVT prophylaxis at all times (On Eliquis)
[2017-02-16 11:03] LABS: GRANULOCYTE % 96.7 % (42.2-75.2)
--- NOTE | 2017-02-16 13:41 | PN- Pulmonary ---
Subjective HPI/Critical Care Issues: Doing poorly still coughing Objective Current Medications: Current Medications Sig/Kirill Start time Last Medication Dose Route Stop Time Status Admin Albuterol Sulfate 3 ML EVERY 4 HRS/AWAKE 02/15 2000 AC 02/16 INH 1135 Albuterol Sulfate 2 PUF Q4P PRN 02/15 1030 AC INH Albuterol Sulfate 3 ML TID 02/14 1600 DC 02/15 INH 1715 Apixaban 2.5 MG BID 02/14 2200 AC 02/16 PO 1117 Aspirin 81 MG DAILY 02/15 1000 AC 02/16 PO 1117 Atorvastatin Calcium 80 MG 1700 02/14 1700 AC 02/15 PO 1616 Budesonide/ 2 PUF BID 02/15 1045 AC 02/16 Formoterol Fumarate INH 1118 Ceftazidime 1,000 MG Q12H 02/15 0800 AC 02/16 IV 1116 Diltiazem HCl 90 MG DAILY 02/14 1149 AC 02/16 PO 1117 Escitalopram Oxalate 10 MG DAILY 02/15 1000 AC 02/16 PO 1117 Glycerin 2 SPRAY Q2P PRN 02/14 1200 AC PO Guaifenesin 600 MG Q12 02/14 2200 AC 02/16 PO 1117 Lorazepam 0.25 MG BID PRN 02/14 1200 AC 02/16 PO 02/21 1159 1121 Melatonin 10 MG AT BEDTIME 02/14 2200 AC 02/16 PO 0123 Methylprednisolone 40 MG Q8 02/15 1400 AC 02/16 IV 0602 Ondansetron HCl 4 MG ONCE ONE 02/15 2200 DC 02/15 IV 02/15 2201 2205 Patient Medication 1 ED .STK-MED ONE 02/15 1403 MD Teaching ED 02/15 1404 Sodium Chloride 2 SPRAY Q4P PRN 02/15 1215 AC 02/15 MERLE 2239 Sodium Chloride 1,000 ML .[id number] 02/15 1030 DC 02/16 IV 02/16 1309 0123 Sodium Chloride 1,000 ML SEE RATE 02/14 1100 AC 02/15 IV 0144 Tiotropium [place] 1 PUF DAILY 02/16 1000 AC 02/16 INH 1117 Vancomycin HCl 750 MG DAILY 02/15 1000 AC 02/16 Sodium Chloride 250 ML IV 1116 Vital Signs & I&O Last 24 Hrs of Vitals and I&O: Vital Signs Date Time Temp Pulse Resp B/P B/P Pulse O2 O2 Flow FiO2 Mean Ox Delivery Rate 02/16 1146 92 Nasal 6.0L Cannula 02/16 1117 126/76 02/16 0704 97.6 98 24 122/72 90 Nasal 7.0L Cannula 02/16 0704 74 Nasal 7.0L Cannula 02/16 0020 97.8 93 24 132/70 90 Nasal 7.0L Cannula 02/16 0000 90 Nasal 6.0L Cannula 02/15 2142 97.6 88 18 132/74 97 02/15 1727 Nasal 6.0L Cannula 02/15 1600 92 Nasal 6.0L Cannula 02/15 1453 98.2 96 22 122/60 90 Nasal 6.0L Cannula 02/15 1429 Nasal 6.0L Cannula 02/15 1353 95 Nasal 6.0L Cannula Intake & Output 02/16 1600 02/16 0800 02/16 0000 Intake Total 720 1005 Output Total Balance 720 1005 Intake, IV 600 525 Intake, Oral 120 480 Patient 99 lb 15.99 oz Weight Impression/Plan Impression/Plan Impression/Plan: heent cachectic cvs s1, s2 lungs diminished air entry, b/l rhonchi abd soft bs+, thin ext without edema 77 year old woman. * Right lung base pna - tx for HCAP * COPD exacerbation and hypoxemic/hypercarbic respiratory failure REC cont abx nebs steroid taper ID to see Pt wishes dnr and dni
[2017-02-16 14:45] VITALS: BP 112/52
--- NOTE | 2017-02-16 16:33 | PN- Infect Dx ---
Subjective Subjective: Appears very fatigued. Persistent cough. No fever. Review of Systems Comments: 12 points reviewed as noted, otherwise negative. Objective Last 24 Hrs of Vital Signs/I&O Vital Signs Date Time Temp Pulse Resp B/P B/P Pulse O2 O2 Flow FiO2 Mean Ox Delivery Rate 02/16 1609 94 Nasal 6.0L Cannula 02/16 1445 97.8 88 22 112/52 94 Nasal 7.0L Cannula 02/16 1146 92 Nasal 6.0L Cannula 02/16 1117 126/76 02/16 0704 97.6 98 24 122/72 90 Nasal 7.0L Cannula 02/16 0704 74 Nasal 7.0L Cannula 02/16 0020 97.8 93 24 132/70 90 Nasal 7.0L Cannula 02/16 0000 90 Nasal 6.0L Cannula 02/15 2142 97.6 88 18 132/74 97 02/15 1727 Nasal 6.0L Cannula Intake & Output 02/16 1600 02/16 0800 02/16 0000 Intake Total 720 1005 Output Total Balance 720 1005 Intake, IV 600 525 Intake, Oral 120 480 Patient 99 lb 15.99 oz Weight Physical Exam Other Physical Findings: General Appearance Alert, Oriented X3, Mild Respiratory Distress, cachetic Skin: Cool/Dry, decreased turgor, pale HEENT Atraumatic/NC, temp wasting/arcus senilis Neck Supple Cardiovascular Normal S1, Normal S2, tachycardic Lungs b/l diminished breath sounds, decreased inspiratory effort, b/l scattered rhonchi Abd: BS present, NT Extremities No Pedal Edema Results Last 24 Hours of Lab Results: Laboratory Tests 02/16 Blood Gas pH (7.35 - 7.45 PH) 7.43 pCO2 (35 - 45 TORR) 50 H pO2 (80 - 100 TORR) 59 L HCO3 (21 - 28 MEQ/L) 32 H ABG O2 Sat (Measured) (>96.0 %) 89.0 L Carboxyhemoglobin (1.5 - 5.0 %) 0.2 L O2 Concentration % 6L O2 Delivery Method NC Hematology CBC w Diff NO MAN DIFF REQ WBC (4.8 - 10.8 /CUMM) 17.8 H RBC (4.20 - 5.40 /CUMM) 3.92 L Hgb (12.0 - 16.0 G/DL) 11.1 L Hct (37 - 47 %) 33.7 L MCV (81.0 - 99.0 FL) 85.9 MCH (27.0 - 31.0 PG) 28.3 RDW (11.5 - 14.5 %) 18.0 H Plt Count (130 - 400 /CUMM) 231 MPV (7.4 - 10.4 FL) 7.8 Gran % (42.2 - 75.2 %) 96.7 H Lymphocytes % (20.5 - 51.1 %) 0.7 L Monocytes % (1.7 - 9.3 %) 2.6 Eosinophils % (0 - 5 %) 0 Basophils % (0.0 - 2.0 %) 0 L Absolute Granulocytes (1.4 - 6.5 /CUMM) 17.3 H Absolute Lymphocytes (1.2 - 3.4 /CUMM) 0.1 L Absolute Monocytes (0.10 - 0.60 /CUMM) 0.5 Absolute Eosinophils (0.0 - 0.7 /CUMM) 0 Absolute Basophils (0.0 - 0.2 /CUMM) 0 PUBS MCHC (33.0 - 37.0 G/DL) 32.9 L Miscellaneous Phlebotomy Draw Site LEFT RADIAL Toxicology Vancomycin Trough (10.0 - 20.0 ug/mL) < 5.0 L Last 24 Hours of Mannie Results: SPEC #: [id number] GUILHERME: 02/15/17 STATUS: RES RECD: 02/15/[address]: DAVID MARTÍNEZ MD SOURCE: LOWER RESP ENTR: 02/15/17-[address] ORDERED: LOWER RESPIRATO Procedure Result > GRAM STAIN Final 02/16/17-0806 WHITE BLOOD CELLS MODERATE SQUAMOUS CELLS NONE OTHER NO ORGANISMS SEEN > LOWER RESPIRATORY CULTURE Preliminary 02/16/17-1237 Scant mixed jagdish after 1 day with Light growth of: GRAM NEGATIVE RODS Identification and sensitivities to follow Recent Imaging Studies: CXR 02/14/17: IMPRESSION: Increased consolidation in the medial aspect of the right lung base, concerning for pneumonia. Severe emphysema DICTATED BY: BARBI MONTES MD DATE/TIME DICTATED:02/14/17555 ROOF TRUSS MACHINE TENDER:AMANDA DATE/TIME TRANSCRIBED:02/14/17555 Assessment/Plan Impression: 76-year-old WF with a past medical history of seveer emphysema/COPD on 1.5-2 L of oxygen at home, atrial fibrillation on Eliquis, left lung cancer status post radiation in September 2015, anxiety, depression, osteoporosis admitted 02/14/17 with : 1. Postobstructive pneumonia; CT chest revealed [] endobronchial occlusion of the posterior and medial basal segmental airways [] resultant postobstructive dense consolidation is seen in both lower lobes. Of note preliminary sputum cx + GNR. 2. Leukemoid reaction; WBC trending down 3. Cachexia Suggestion: 1. Obtain nasal MRSA surv cx; f/u pulm recom. 2. Continue empiric abx coverage (D #3) w/ iv vancomycin 750 mg q 12 h (as vanco trough subtherapeutic; goal trough 15-20) and ceftazidime 1 gm iv q 8 h. Vanco trough in am 02/18. 3. Trend CBC/BMP.
--- NOTE | 2017-02-16 16:51 | RADIOLOGY REPORT ---
EXAMINATION: XR MODIFIED BARIUM SWALLOW CLINICAL INFORMATION: Hypoxia. Presumptive diagnosis of aspiration. COMPARISON: CT scan of the chest dated 02/14/2017. TECHNIQUE: A modified barium swallow was performed with speech pathologist in attendance. Pur?e, honey thick, nectar thick, thin, bread, and cracker consistencies were given to the patient and the swallowing mechanism was observed fluoroscopically with several spot films taken. FLUOROSCOPY TIME: 2 minutes 3 seconds. FINDINGS: With all consistencies, the oropharyngeal phase of swallowing is normal with no laryngeal or nasopharyngeal aspiration seen. With puree, slight residual is noted in the vallecula, which clears with successive swallowing. No significant pooling of contrast in the valleculae or piriform sinuses is seen with the remaining barium consistencies. IMPRESSION: 1. Mild pooling of contrast in the valleculae seen with puree. 2. Otherwise unremarkable exam. 3. Speech pathologist assessment issued separately.
[2017-02-16 22:49] VITALS: BP 120/60
--- NOTE | 2017-02-17 05:32 | PN- Housestaff ---
YEYO BENAVIDES 02/17/17 0532: Subjective Follow-up For: Acute hypoxic respiratory failure HCAP Subjective: seen and examined patient this morning. States she feels better from yesterday.She seems improved clinically from yesterday is able to speak in longer sentences. Denies being any pain anywhere Review of Systems Constitutional: Denies: chills, diaphoresis, fever, malaise, weakness, unexplained weight loss. Cardiovascular: Denies: chest pain, edema, orthopena, palpitations, peripheral edema, syncope. Respiratory: Reports: cough, short of breath, wheezing. Objective Last 24 Hrs of Vital Signs/I&O Vital Signs Date Time Temp Pulse Resp B/P B/P Pulse O2 O2 Flow FiO2 Mean Ox Delivery Rate 02/17 0341 93 Nasal 5.0L Cannula 02/17 0000 93 Nasal 5.0L Cannula 02/16 2249 98.5 80 23 120/60 93 Nasal Cannula 02/16 1609 94 Nasal 6.0L Cannula 02/16 1600 Nasal 6.0L Cannula 02/16 1445 97.8 88 22 112/52 94 Nasal 7.0L Cannula 02/16 1146 92 Nasal 6.0L Cannula 02/16 1130 Nasal 6.0L Cannula 02/16 1117 126/76 02/16 0800 Nasal 6.0L Cannula 02/16 0704 97.6 98 24 122/72 90 Nasal 7.0L Cannula 02/16 0704 74 Nasal 7.0L Cannula Intake & Output 02/17 0800 02/17 0000 02/16 1600 Intake Total 270 1100 Output Total Balance 270 1100 Intake, IV 30 700 Intake, Oral 240 400 Patient 99 lb 15.99 oz Weight Physical Exam General Appearance: Alert, Oriented X3, Cooperative, No Acute Distress, cachectic Cardiovascular: Regular Rate, Normal S1, Normal S2 Lungs: bilateral rhonchi in all areas Abdomen: Soft Assessment/Plan Assessment: 76-year-old woman from [place] with a past medical history of COPD on 1.5-2 L of oxygen at home, atrial fibrillation on Eliquis, left lung cancer status post radiation in September 2015, anxiety, depression, osteoporosis, recently admitted to [facility] on 01/31/17 episode of syncope BIBA for episode of desaturation at the [facility]. CXR pertinant for increasing consolidation in the medial aspect of the right lung base,concerning for pneumonia. CT chest without contrast significant for endotracheal debris/mucus, extensive filling defects seen in the lobar and segmental airways of both lower lobes with complete occlusion of the medial and posterior basal segmental airways leading to dense parenchymal consolidation in both lower lobes. Acute hypoxic respiratory failure/end stage COPD saturating 93% on 5 L NC on IV 40mg IV solu Medrol q8hrs ATC Resp care/neb, acapella pulmonology on board, appreciate recomendations. Patient does not wish to proceed with a bronchoscopy at this time. HCAP/aspiration ID on board, recomending IV vancomycin and fortaz day 4 today sputum culture growing gram neg rods, f/up sensitivitis, legionella and strep Ag negative prelim blood cultures show no growth. labs pending Atrial fibrillation Continue Eliquis, Diltiazem and aspirin Depression and anxiety Continue Ativan and Lexapro DVT prophylaxis with Eliquis Heart healthy diet DNR/DNI Problem List: 1. Healthcare associated bacterial pneumonia 2. Acute and chronic respiratory failure with hypoxia 3. Atrial fibrillation Pain Ratin Pain Location: na Pain Goal: Pain 4 or less Pain Plan: current regimen Tomorrow's Labs & Rationales: none required SHAY SINCLAIR MD 02/17/17 1347: Attending MD Review Statement Attending Statement Attending MD Statement: examined this patient, agreed w/resident/PA/CURED MEAT PACKING SUPERVISOR, reviewed EMR data (avail), reviewed images, amended to note Attending Assessment/Plan: Mrs. Aldana was interviewed, examined and her EHR reviewed. Discussions were also had with Xenia Osullivan MD and Dr. Patel. She states she notes some increased drowsiness with her lorazepam dosing. She remains afebrile and her physical exam is unchanged. WBC are at 19,900 today which is same slight increase from yesterday. She remains on intravenous ceftazidime and also vancomycin for presumed Pseudomonas pneumonia. I agree with Xenia Osullivan MD that we should obtain nasal swabs for MRSA is negative discontinue vancomycin. We should continue all other supportive measures as well as continue her maintenance medications for her other medical conditions. I would reduce her lorazepam dose to 0.125 mg twice a day to see if it decreases the side effects and remains effective.
[2017-02-17 07:22] VITALS: BP 120/62
[2017-02-17 07:47] LABS: ABSOLUTE BASOPHIL COUNT 0 /CUMM (0.0-0.2); ABSOLUTE EOSINOPHIL COUNT 0 /CUMM (0.0-0.7); ABSOLUTE GRANULOCYTE CT 19.6 /CUMM (1.4-6.5); ABSOLUTE LYMPH COUNT 0.1 /CUMM (1.2-3.4); ABSOLUTE MONOCYTE COUNT 0.1 /CUMM (0.10-0.60); BASOPHIL % 0 % (0.0-2.0); EOSINOPHIL % 0 % (0-5); GRANULOCYTE % 98.7 % (42.2-75.2); HEMATOCRIT 33.7 % (37-47); MEAN CORPUSCULAR HGB 28.5 PG (27.0-31.0); MEAN CORPUSCULAR HGB CONC 33.2 G/DL (33.0-37.0); MEAN CORPUSCULAR VOLUME 85.8 FL (81.0-99.0); MEAN PLATELET VOLUME 7.9 FL (7.4-10.4); PLATELET COUNT 223 /CUMM (130-400); RBC DISTRIBUTION WIDTH 18.2 % (11.5-14.5); RED BLOOD CELL CT 3.92 /CUMM (4.20-5.40)
[2017-02-17 09:07] LABS: WHITE BLOOD CELL COUNT 19.9 /CUMM (4.8-10.8)
--- NOTE | 2017-02-17 11:55 | PN- Pulmonary ---
Subjective HPI/Critical Care Issues: pt seen and examined afebrile 95% on 5LNC wbc 19.9 overnight labs/vitals/nursing notes reviewed Objective Current Medications: Current Medications Sig/Kirill Start time Last Medication Dose Route Stop Time Status Admin Albuterol Sulfate 3 ML EVERY 4 HRS/AWAKE 02/15 2000 AC 02/17 INH 1152 Albuterol Sulfate 2 PUF Q4P PRN 02/15 1030 AC INH Apixaban 2.5 MG BID 02/14 2200 AC 02/17 PO 1039 Aspirin 81 MG DAILY 02/15 1000 AC 02/17 PO 1039 Atorvastatin Calcium 80 MG 1700 02/14 1700 AC 02/16 PO 1703 Budesonide/ 2 PUF BID 02/15 1045 AC 02/17 Formoterol Fumarate INH 1039 Ceftazidime 1,000 MG Q12H 02/15 0800 AC 02/17 IV 0757 Diltiazem HCl 90 MG DAILY 02/14 1149 AC 02/17 PO 1038 Escitalopram Oxalate 10 MG DAILY 02/15 1000 AC 02/16 PO 1117 Glycerin 2 SPRAY Q2P PRN 02/14 1200 AC PO Guaifenesin 600 MG Q12 02/14 2200 AC 02/17 PO 1038 Lorazepam 0.25 MG BID PRN 02/14 1200 AC 02/16 PO 02/21 1159 1121 Melatonin 10 MG AT BEDTIME 02/14 220 AC 02/16 PO 2208 Methylprednisolone 40 MG Q8 02/15 1400 AC 02/17 IV 0613 Sodium Chloride 2 SPRAY Q4P PRN 02/15 1215 AC 02/15 MERLE 2239 Sodium Chloride 1,000 ML .[id number] 02/15 1030 DC 02/16 IV 02/16 1309 0123 Sodium Chloride 1,000 ML SEE RATE 02/14 1100 AC 02/15 IV 0144 Tiotropium [place] 1 PUF DAILY 02/16 1000 AC 02/17 INH 1039 Vancomycin HCl 750 MG DAILY 02/15 1000 AC 02/17 Sodium Chloride 250 ML IV 1141 Vital Signs & I&O Last 24 Hrs of Vitals and I&O: Vital Signs Date Time Temp Pulse Resp B/P B/P Pulse O2 O2 Flow FiO2 Mean Ox Delivery Rate 02/17 0800 95 Nasal 5.0L Cannula 02/17 0756 94 Nasal 5.0L Cannula 02/17 722 98.0 65 20 120/62 95 Nasal Cannula 02/17 0341 93 Nasal 5.0L Cannula 02/17 0000 93 Nasal 5.0L Cannula 02/16 2249 98.5 80 23 120/60 93 Nasal Cannula 02/16 1609 94 Nasal 6.0L Cannula 02/16 1600 Nasal 6.0L Cannula 02/16 1445 97.8 88 22 112/52 94 Nasal 7.0L Cannula Intake & Output 02/17 1600 02/17 0800 02/17 0000 Intake Total 240 270 Output Total 200 Balance 40 270 Intake, IV 30 Intake, Oral 240 240 Output, Urine 200 Exam Other Physical Findings: gen awake and alert heent cachectic cvs s1, s2 lungs diminished air entry, b/l rhonchi abd soft bs+, thin ext without edema Results Last 24 Hrs of Lab Results: Laboratory Tests 02/17/17704: CBC w Diff NO MAN DIFF REQ, RBC 3.92 L, MCV 85.8, MCH 28.5, RDW 18.2 H, MPV 7.9, Gran % 98.7 H, Lymphocytes % 0.6 L, Monocytes % 0.7 L, Eosinophils % 0, Basophils % 0 L, Absolute Granulocytes 19.6 H, Absolute Lymphocytes 0.1 L, Absolute Monocytes 0.1 L, Absolute Eosinophils 0, Absolute Basophils 0, PUBS MCHC 33.2 Impression/Plan Impression/Plan Impression/Plan: Impression 77 year old woman. * Right lung base pna - tx for HCAP * COPD exacerbation and hypoxemic/hypercarbic respiratory failure Plan -TRC/Nebs -reduce solumedrol to 40mg iv q12h -f/u speech/swallow/nutrition -ID appreciated -pt declines bronchoscopy given high risk for intubation -cont abx DNR/DNI DVT prophylaxis at all times (On Eliquis)
--- NOTE | 2017-02-17 12:07 | NUR ---
STAGE II TO L BUTTOCK NOTED. 0.4CM X 0.2CM X 0.1 CM. SMALL AMT. SEROUS DRAINAGE NOTED. PT. ALREADY ON SIZE WIZE MATTRESS, DUODERM APPLIED, PLACED ON SIDE TOLERATED, CONSULT ORDERED FOR WOUND NURSE.
--- NOTE | 2017-02-17 13:17 | PN- Infect Dx ---
Subjective Subjective: No fever; still SOB with minimal activity. Improved appetite. Review of Systems Comments: 12 points reviewed as noted, otherwise negative. Objective Last 24 Hrs of Vital Signs/I&O Vital Signs Date Time Temp Pulse Resp B/P B/P Pulse O2 O2 Flow FiO2 Mean Ox Delivery Rate 02/17 0800 95 Nasal 5.0L Cannula 02/17 0756 94 Nasal 5.0L Cannula 02/17 0722 98.0 65 20 120/62 95 Nasal Cannula 02/17 0341 93 Nasal 5.0L Cannula 02/17 0000 93 Nasal 5.0L Cannula 02/16 2249 98.5 80 23 120/60 93 Nasal Cannula 02/16 1609 94 Nasal 6.0L Cannula 02/16 1600 Nasal 6.0L Cannula 02/16 1445 97.8 88 22 112/52 94 Nasal 7.0L Cannula Intake & Output 02/17 1600 02/17 0800 02/17 0000 Intake Total 240 270 Output Total 200 Balance 40 270 Intake, IV 30 Intake, Oral 240 240 Output, Urine 200 Physical Exam Other Physical Findings: General Appearance Alert, Oriented X3, Mild Respiratory Distress, cachetic Skin: Cool/Dry, decreased turgor, pale HEENT Atraumatic/NC, temp wasting/arcus senilis Neck Supple Cardiovascular Normal S1, Normal S2, tachycardic Lungs b/l diminished breath sounds, improveded inspiratory effort, b/l bases rhonchi Abd: BS present, NT Extremities No Pedal Edema Results Last 24 Hours of Lab Results: Laboratory Tests 02/17 705 Hematology CBC w Diff NO MAN DIFF REQ WBC (4.8 - 10.8 /CUMM) 19.9 H RBC (4.20 - 5.40 /CUMM) 3.92 L Hgb (12.0 - 16.0 G/DL) 11.2 L Hct (37 - 47 %) 33.7 L MCV (81.0 - 99.0 FL) 85.8 MCH (27.0 - 31.0 PG) 28.5 RDW (11.5 - 14.5 %) 18.2 H Plt Count (130 - 400 /CUMM) 223 MPV (7.4 - 10.4 FL) 7.9 Gran % (42.2 - 75.2 %) 98.7 H Lymphocytes % (20.5 - 51.1 %) 0.6 L Monocytes % (1.7 - 9.3 %) 0.7 L Eosinophils % (0 - 5 %) 0 Basophils % (0.0 - 2.0 %) 0 L Absolute Granulocytes (1.4 - 6.5 /CUMM) 19.6 H Absolute Lymphocytes (1.2 - 3.4 /CUMM) 0.1 L Absolute Monocytes (0.10 - 0.60 /CUMM) 0.1 L Absolute Eosinophils (0.0 - 0.7 /CUMM) 0 Absolute Basophils (0.0 - 0.2 /CUMM) 0 PUBS MCHC (33.0 - 37.0 G/DL) 33.2 Last 24 Hours of Mannie Results: SPEC #: [id number] GUILHERME: 02/15/17 STATUS: COMP RECD: 02/15/[address]: DAVID MARTÍNEZ MD SOURCE: LOWER RESP ENTR: 02/15/[address]: CHI LEY MD SPDESC: SPUTUM ORDERED: LOWER RESPIRATO Procedure Result > GRAM STAIN Final 02/16/17-0806 WHITE BLOOD CELLS MODERATE SQUAMOUS CELLS NONE OTHER NO ORGANISMS SEEN > LOWER RESPIRATORY CULTURE Final 02/17/17-0920 Scant mixed jagdish after 2 days with Light growth of: PSEUDOMONAS AERUGINOSA 1. PSEUDOMONAS AERUGINOSA RX AB ------ -- CEFTAZIDIME S CIPROFLOXACIN S GENTAMICIN S IMIPENEM S Recent Imaging Studies: AM TYPE: RAD - XRY-MODIFIED BARIUM SWALLOW EXAMINATION: XR MODIFIED BARIUM SWALLOW CLINICAL INFORMATION: Hypoxia. Presumptive diagnosis of aspiration. COMPARISON: CT scan of the chest dated 02/14/2017. TECHNIQUE: A modified barium swallow was performed with speech pathologist in attendance. Pur?e, honey thick, nectar thick, thin, bread, and cracker consistencies were given to the patient and the swallowing mechanism was observed fluoroscopically with several spot films taken. FLUOROSCOPY TIME: 2 minutes 3 seconds. FINDINGS: With all consistencies, the oropharyngeal phase of swallowing is normal with no laryngeal or nasopharyngeal aspiration seen. With puree, slight residual is noted in the vallecula, which clears with successive swallowing. No significant pooling of contrast in the valleculae or piriform sinuses is seen with the remaining barium consistencies. IMPRESSION: 1. Mild pooling of contrast in the valleculae seen with puree. 2. Otherwise unremarkable exam. 3. Speech pathologist assessment issued separately. DICTATED BY: GUCCI BERRY MD DATE/TIME DICTATED:02/16/171645 BEVELLER OPERATOR:AMANDA DATE/TIME TRANSCRIBED:02/16/171645 CONFIDENTIAL, DO NOT COPY WITHOUT APPROPRIATE AUTHORIZATION. <Electronically signed in Other Vendor System> SIGNED BY: GUCCI BERRY MD [id number] Assessment/Plan Impression: 76-year-old WF with a past medical history of seveer emphysema/COPD on 1.5-2 L of oxygen at home, atrial fibrillation on Eliquis, left lung cancer status post radiation in September 2015, anxiety, depression, osteoporosis admitted 02/14/17 with : 1. Postobstructive pneumonia; CT chest revealed [] endobronchial occlusion of the posterior and medial basal segmental airways [] resultant postobstructive dense consolidation is seen in both lower lobes. Of note preliminary sputum cx + Ps. aeruginosa. 2. Leukocytosis 3. Cachexia Suggestion: 1. Obtain nasal MRSA surv cx and if negative d/c iv Vancomycin; vanco trough in am.f/u pulm recom. 2. Continue empiric abx coverage (D #4) w/ iv ceftazidime 1 gm iv q 8 h; please note that Ceftaz is currently dosed q 12 h. 3. Trend CBC/BMP.
[2017-02-17 14:27] VITALS: BP 130/64
[2017-02-17 18:44] LABS: ABSOLUTE BASOPHIL COUNT 0 /CUMM (0.0-0.2); ABSOLUTE EOSINOPHIL COUNT 0 /CUMM (0.0-0.7); ABSOLUTE GRANULOCYTE CT 18.6 /CUMM (1.4-6.5); ABSOLUTE LYMPH COUNT 0.1 /CUMM (1.2-3.4); ABSOLUTE MONOCYTE COUNT 0.4 /CUMM (0.10-0.60); BASOPHIL % 0 % (0.0-2.0); EOSINOPHIL % 0 % (0-5); HEMATOCRIT 34.9 % (37-47); MEAN CORPUSCULAR HGB 27.7 PG (27.0-31.0); MEAN CORPUSCULAR HGB CONC 32.3 G/DL (33.0-37.0); MEAN CORPUSCULAR VOLUME 85.5 FL (81.0-99.0); MEAN PLATELET VOLUME 8.1 FL (7.4-10.4); PLATELET COUNT 256 /CUMM (130-400); RBC DISTRIBUTION WIDTH 17.8 % (11.5-14.5); RED BLOOD CELL CT 4.08 /CUMM (4.20-5.40); WHITE BLOOD CELL COUNT 19.1 /CUMM (4.8-10.8)
[2017-02-17 19:01] LABS: GRANULOCYTE % 97.5 % (42.2-75.2)
--- NOTE | 2017-02-17 20:15 | NUR ---
PT HAD +GUIAC STOOL EARLIER TODAY AND DRIED BLOOD AROUND NARES FROM NOSE BLEED. THIS RN AKSED DR MARTÍNEZ IF THEY WISH TO HOLD EVENING DOSE OF ELIQUIS. PER DR MARTÍNEZ, ELIQUIS TO BE ADMINISTERED UNLESS FURTHER SIGNS OF BLEEDING OCCUR.
--- NOTE | 2017-02-17 21:08 | Event Note ---
See Addendum Event Note Event Note: I was paced by the nurse after 12 PM that the patient had grossly red bowel movement and the guaiac was positive. Patient is on a a Eliquis and baby aspirin and his history of atrial fibrillation. I went and talked with the patient. The patient was sitting comfortably in the bed and chatting with the nurses. Her vitals were stable. There was no acute distress. The case was discussed with the attending and considering her history of A. fib and atrial septal aneurysm it was decided to continue Eliquis and hold the baby asprin
--- NOTE | 2017-02-17 21:30 | NUR ---
PT STATES, "I'M HAVING TROUBLE BREATHING. I CAN'T BREATHE." PT 90% O2 ON 5L NC WITH PENDANT. NOT BREATHING FROM NOSE DUE TO CONGESTION AND ONLY BREATHING FROM MOUTH. DR. MARTÍNEZ NOTIFIED. AFTER CLEANING PT NARES SEVERAL TIMES, PT BEGAN BREATHING BETTER AND PULSE OX WAS 96%. PT RELUCTANT TO WEAR MASK. RESPIRATORY WILL SWITCH PT TO 7L NC WITH HUMIDIFIER PER DR MARTÍNEZ. WILL CONTINUE TO MONITOR.
[2017-02-17 22:11] VITALS: BP 140/60
--- NOTE | 2017-02-17 22:55 | NUR ---
PT CURRENTLY RESTING COMFORTABLY. PULSE OX 99% ON 7L WITH HUMIDIFIER.
[2017-02-18 06:28] VITALS: BP 136/56
--- NOTE | 2017-02-18 08:23 | PN- Housestaff ---
See Addendum Subjective Follow-up For: Pseudomas pneumonia Hypoxic respiratory failure Guaiac positive stools Hypercarbia Complaints: shortness of breath, generalized weakness, cough Subjective: Interval history: Overnight the patient was noted to have a bowel movement with some blood in it, positive guaiac. She was noted to have some difficulty with swallowing some food but no reports of choking. This morning Mrs Aldana states that she still feels significantly weak but does endorse a mild improvement in her cough over the past 24 hours. Review of Systems Constitutional: Reports: see HPI. EENTM: Reports: no symptoms. Cardiovascular: Reports: no symptoms. Respiratory: Reports: see HPI. Gastrointestinal: Reports: no symptoms. Genitourinary: Reports: no symptoms. Musculoskeletal: Reports: see HPI. Objective Last 24 Hrs of Vital Signs/I&O Vital Signs Date Time Temp Pulse Resp B/P B/P Pulse O2 O2 Flow FiO2 Mean Ox Delivery Rate 02/18 0939 91 136/56 02/18 0736 96 Nasal 6.0L Cannula 02/18 0628 97.8 91 20 136/56 98 Nasal Cannula 02/18 0505 94 Nasal 7.0L Cannula 02/18 0000 99 Nasal 7.0L Cannula 02/17 2230 99 Nasal 7.0L Cannula 02/17 2211 97.7 90 20 140/60 96 02/17 2130 90 Nasal 5.0L Cannula 02/17 1639 94 Nasal 5.0L Cannula 02/17 1600 94 Nasal 5.0L Cannula 02/17 1427 97.6 96 16 130/64 94 Nasal 5.0L Cannula Intake & Output 02/18 1600 02/18 0800 02/18 0000 Intake Total 360 310 Output Total 150 300 Balance 210 10 Intake, IV 30 Intake, Oral 360 280 Output, Urine 150 300 Physical Exam General Appearance: Alert, Cooperative, patient is sitting in bed upright, breathing with increased effort, accessory muscle use evident Skin: No Breakdown Skin Temp/Moisture Exam: Warm/Dry Sepsis Skin Exam (color): Normal for Ethnicity HEENT: Mucous Membr. moist/pink Cardiovascular: Normal S1, Normal S2, irregularly irregular rhythm Lungs: diffuse crackles and stridor present bilateral lung piña Abdomen: Normal Bowel Sounds, Soft, No Tenderness Extremities: No Edema, Normal Pulses Current Medications: Current Medications Sig/Kirill Start time Last Medication Dose Route Stop Time Status Admin Albuterol Sulfate 3 ML EVERY 4 HRS/AWAKE 02/15 2000 AC 02/18 INH 0735 Albuterol Sulfate 2 PUF Q4P PRN 02/15 1030 AC INH Apixaban 2.5 MG BID 02/14 2200 AC 02/18 PO 0939 Aspirin 81 MG DAILY 02/15 1000 DC 02/17 PO 1039 Atorvastatin Calcium 80 MG 1700 02/14 1700 AC 02/17 PO 1624 Budesonide/ 2 PUF BID 02/15 1045 AC 02/18 Formoterol Fumarate INH 0829 Ceftazidime 1,000 MG Q12H 02/15 0800 AC 02/18 IV 0825 Diltiazem HCl 90 MG DAILY 02/14 1149 AC 02/18 PO 0939 Escitalopram Oxalate 10 MG DAILY 02/15 1000 AC 02/18 PO 0940 Glycerin 2 SPRAY Q2P PRN 02/14 1200 AC PO Guaifenesin 600 MG Q12 02/14 2200 AC 02/18 PO 0940 Lorazepam 0.125 MG BID PRN 02/17 1753 AC 02/18 PO 02/24 1752 0940 Lorazepam 0.25 MG BID PRN 02/14 1200 DC 02/16 PO 02/21 1159 1121 Melatonin 10 MG AT BEDTIME 02/14 220 AC 02/17 PO 2114 Methylprednisolone 40 MG Q12 02/17 220 AC 02/18 IV 0825 Methylprednisolone 40 MG Q8 02/15 1400 DC 02/17 IV 1502 Sodium Chloride 2 SPRAY Q4P PRN 02/15 1215 AC 02/15 MERLE 2239 Sodium Chloride 1,000 ML SEE RATE 02/14 1100 AC 02/15 IV 0144 Tiotropium [place] 1 PUF DAILY 02/16 1000 AC 02/18 INH 0832 Vancomycin HCl 750 MG DAILY 02/15 1000 AC 02/17 Sodium Chloride 250 ML IV 1141 Last 24 Hrs of Lab/Mannie Results Last 24 Hrs of Labs/Mics: Laboratory Tests 02/17/17 1732: CBC w Diff NO MAN DIFF REQ, RBC 4.08 L, MCV 85.5, MCH 27.7, RDW 17.8 H, MPV 8.1, Gran % 97.5 H, Lymphocytes % 0.5 L, Monocytes % 2.0, Eosinophils % 0, Basophils % 0 L, Absolute Granulocytes 18.6 H, Absolute Lymphocytes 0.1 L, Absolute Monocytes 0.4, Absolute Eosinophils 0, Absolute Basophils 0, PUBS MCHC 32.3 L Microbiology 02/17 1925 UPPER RESP: Surveillance Culture - RECD Assessment/Plan Assessment: 76-year-old woman from [place] with a past medical history of COPD on 1.5-2 L of oxygen at home, atrial fibrillation on Eliquis, left lung cancer status post radiation in September 2015, anxiety, depression, osteoporosis, recently admitted to [facility] on 01/31/17 episode of syncope BIBA for episode of desaturation at the ECF. CXR pertinant for increasing consolidation in the medial aspect of the right lung base,concerning for pneumonia. CT chest without contrast significant for endotracheal debris/mucus, extensive filling defects seen in the lobar and segmental airways of both lower lobes with complete occlusion of the medial and posterior basal segmental airways leading to dense parenchymal consolidation in both lower lobes. Problem list: 1. Pseudomonas healthcare acquired pneumonia 2. Acute hypoxic respiratory failure 3. Pseudomonas HCAP/Acute hypoxic respiratory failure/end stage COPD * Currently saturating above 92% on 6L via nasal cannula * Continue with ceftazidime for Pseudomonas in sputum culture * Respiratory culture for MRSA pending * Follow-up magnesium and phosphorus levels saturating * Continue with Solu-Medrol 40 mg IV Q12, titrate to Q24 in the AM * Continue mucolytics with acappella therapy, Mucinex 600 mg Q12. If concern for mucous plugging consider N-acetylcysteine * At this time no plan to continue with bronchoscopy in the setting of high risk for intubation Atrial fibrillation * Right positive stools last night. We'll continue on Eliquis, repeat CBC this afternoon at 4 PM Continue Diltiazem and aspirin Depression and anxiety * Continue Ativan and Lexapro DVT prophylaxis with Eliquis Heart healthy diet DNR/DNI Problem List: 1. Pseudomonas pneumonia 2. Acute and chronic respiratory failure with hypoxia Pain Ratin Pain Location: NA Pain Goal: Pain 4 or less Pain Plan: Pain pathway Tomorrow's Labs & Rationales: CBC: Trending leukocytosis while on ceftaz BEP: Trending renal function and magnesium/phosphorus DVT/Prophylaxis: pharmacological Consulting Request: Consulting Specialty: Pulmonary Disease
--- NOTE | 2017-02-18 09:59 | PN- Pulmonary ---
Subjective HPI/Critical Care Issues: pt seen and examined wbc 19.1 dyspnea off pendant now on 7L coughing feels tired but improved ?bleeding yesterday, stable h/h, asa held Objective Current Medications: Current Medications Sig/Kirill Start time Last Medication Dose Route Stop Time Status Admin Albuterol Sulfate 3 ML EVERY 4 HRS/AWAKE 02/15 2000 AC 02/18 INH 0735 Albuterol Sulfate 2 PUF Q4P PRN 02/15 1030 AC INH Apixaban 2.5 MG BID 02/14 2200 AC 02/18 PO 0939 Aspirin 81 MG DAILY 02/15 1000 DC 02/17 PO 1039 Atorvastatin Calcium 80 MG 1700 02/14 1700 AC 02/17 PO 1624 Budesonide/ 2 PUF BID 02/15 1045 AC 02/18 Formoterol Fumarate INH 0829 Ceftazidime 1,000 MG Q12H 02/15 0800 AC 02/18 IV 0825 Diltiazem HCl 90 MG DAILY 02/14 1149 AC 02/18 PO 0939 Escitalopram Oxalate 10 MG DAILY 02/15 1000 AC 02/18 PO 0940 Glycerin 2 SPRAY Q2P PRN 02/14 1200 AC PO Guaifenesin 600 MG Q12 02/14 2200 AC 02/18 PO 0940 Lorazepam 0.125 MG BID PRN 02/17 1753 AC 02/18 PO 02/24 1752 0940 Lorazepam 0.25 MG BID PRN 02/14 1200 DC 02/16 PO 02/21 1159 1121 Melatonin 10 MG AT BEDTIME 02/14 2200 AC 02/17 PO 2114 Methylprednisolone 40 MG Q12 02/17 2200 AC 02/18 IV 0825 Methylprednisolone 40 MG Q8 02/15 1400 DC 02/17 IV 1502 Sodium Chloride 2 SPRAY Q4P PRN 02/15 1215 AC 02/15 MERLE 2239 Sodium Chloride 1,000 ML SEE RATE 02/14 1100 AC 02/15 IV 0144 Tiotropium [place] 1 PUF DAILY 02/16 1000 AC 02/18 INH 0832 Vancomycin HCl 750 MG DAILY 02/15 1000 AC 02/17 Sodium Chloride 250 ML IV 1141 Vital Signs & I&O Last 24 Hrs of Vitals and I&O: Vital Signs Date Time Temp Pulse Resp B/P B/P Pulse O2 O2 Flow FiO2 Mean Ox Delivery Rate 02/18 0939 91 136/56 02/18 0736 96 Nasal 6.0L Cannula 02/18 0628 97.8 91 20 136/56 98 Nasal Cannula 02/18 0505 94 Nasal 7.0L Cannula 02/18 0000 99 Nasal 7.0L Cannula 02/17 2230 99 Nasal 7.0L Cannula 02/17 2211 97.7 90 20 140/60 96 02/17 2130 90 Nasal 5.0L Cannula 02/17 1639 94 Nasal 5.0L Cannula 02/17 1600 94 Nasal 5.0L Cannula 02/17 1427 97.6 96 16 130/64 94 Nasal 5.0L Cannula Intake & Output 02/18 1600 02/18 0800 02/18 0000 Intake Total 360 310 Output Total 150 300 Balance 210 10 Intake, IV 30 Intake, Oral 360 280 Output, Urine 150 300 Exam Other Physical Findings: gen awake and alert heent cachectic cvs s1, s2 lungs diminished air entry, b/l rhonchi abd soft bs+, thin ext without edema Results Last 24 Hrs of Lab Results: Laboratory Tests 02/17/172: CBC w Diff NO MAN DIFF REQ, RBC 4.08 L, MCV 85.5, MCH 27.7, RDW 17.8 H, MPV 8.1, Gran % 97.5 H, Lymphocytes % 0.5 L, Monocytes % 2.0, Eosinophils % 0, Basophils % 0 L, Absolute Granulocytes 18.6 H, Absolute Lymphocytes 0.1 L, Absolute Monocytes 0.4, Absolute Eosinophils 0, Absolute Basophils 0, PUBS MCHC 32.3 L Impression/Plan Impression/Plan Impression/Plan: Impression 77 year old woman. * Right lung base pna - tx for HCAP * COPD exacerbation and hypoxemic/hypercarbic respiratory failure Plan -TRC/Nebs -keep solumedrol to 40mg iv q12h -f/u speech/swallow/nutrition -aspiration precautions, assistance with feeding -ID appreciated -pt declines bronchoscopy given high risk for intubation -cont abx -PT/OT DNR/DNI DVT prophylaxis at all times (On Eliquis)
--- NOTE | 2017-02-18 12:36 | PN- Infect Dx ---
Subjective Subjective: SOB at rest; fatgued. Persistent cough. Poor appetite. No fever. Review of Systems Comments: 12 points reviewed as noted, otherwise negative. Objective Last 24 Hrs of Vital Signs/I&O Vital Signs Date Time Temp Pulse Resp B/P B/P Pulse O2 O2 Flow FiO2 Mean Ox Delivery Rate 02/18 1130 95 Nasal Cannula 02/18 0939 91 136/56 02/18 0736 96 Nasal 6.0L Cannula 02/18 0628 97.8 91 20 136/56 98 Nasal Cannula 02/18 0505 94 Nasal 7.0L Cannula 02/18 0000 99 Nasal 7.0L Cannula 02/17 2230 99 Nasal 7.0L Cannula 02/17 2211 97.7 90 20 140/60 96 02/17 2130 90 Nasal 5.0L Cannula 02/17 1639 94 Nasal 5.0L Cannula 02/17 1600 94 Nasal 5.0L Cannula 02/17 1427 97.6 96 16 130/64 94 Nasal 5.0L Cannula Intake & Output 02/18 1600 02/18 0800 02/18 0000 Intake Total 360 310 Output Total 150 300 Balance 210 10 Intake, IV 30 Intake, Oral 360 280 Output, Urine 150 300 Physical Exam Other Physical Findings: General Appearance Alert, Oriented X3, Mild Respiratory Distress, cachetic Skin: Cool/Dry, decreased turgor, pale HEENT Atraumatic/NC, temp wasting/arcus senilis Neck Supple Cardiovascular Normal S1, Normal S2, tachycardic Lungs b/l diminished breath sounds, poor inspiratory effort, b/l bases rhonchi and rales Abd: BS present, NT Extremities No Pedal Edema Results Last 24 Hours of Lab Results: Laboratory Tests 02/18 02/17 1025 1732 Chemistry Sodium (137 - 145 mmol/L) 144 Potassium (3.5 - 5.1 mmol/L) 3.9 Chloride (98 - 107 mmol/L) 104 Carbon Dioxide (22 - 30 mmol/L) 33 H Anion Gap (5 - 16) 7 BUN (7 - 17 mg/dL) 26 H Creatinine (0.5 - 1.0 mg/dL) 0.4 L Estimated GFR (>60 ml/min) > 60 BUN/Creatinine Ratio (7 - 25 %) 65.0 H Phosphorus (2.5 - 4.5 mg/dL) 2.4 L Magnesium (1.6 - 2.3 mg/dL) 2.2 Hematology CBC w Diff NO MAN DIFF REQ WBC (4.8 - 10.8 /CUMM) 19.1 H RBC (4.20 - 5.40 /CUMM) 4.08 L Hgb (12.0 - 16.0 G/DL) 11.3 L Hct (37 - 47 %) 34.9 L MCV (81.0 - 99.0 FL) 85.5 MCH (27.0 - 31.0 PG) 27.7 RDW (11.5 - 14.5 %) 17.8 H Plt Count (130 - 400 /CUMM) 256 MPV (7.4 - 10.4 FL) 8.1 Gran % (42.2 - 75.2 %) 97.5 H Lymphocytes % (20.5 - 51.1 %) 0.5 L Monocytes % (1.7 - 9.3 %) 2.0 Eosinophils % (0 - 5 %) 0 Basophils % (0.0 - 2.0 %) 0 L Absolute Granulocytes (1.4 - 6.5 /CUMM) 18.6 H Absolute Lymphocytes (1.2 - 3.4 /CUMM) 0.1 L Absolute Monocytes (0.10 - 0.60 /CUMM) 0.4 Absolute Eosinophils (0.0 - 0.7 /CUMM) 0 Absolute Basophils (0.0 - 0.2 /CUMM) 0 PUBS MCHC (33.0 - 37.0 G/DL) 32.3 L Toxicology Vancomycin Trough (10.0 - 20.0 ug/mL) < 5.0 L Last 24 Hours of Mannie Results: SPEC #: [id number] GUILHERME: 02/15/17 STATUS: COMP RECD: 02/15/[address]: MAURICIO CLIFFORD, SOURCE: LOWER RESP ENTR: 02/15/[address]: JIL CLIFFORD, [facility]: SPUTUM ORDERED: LOWER RESPIRATO Procedure Result > GRAM STAIN Final 02/16/17-0806 WHITE BLOOD CELLS MODERATE SQUAMOUS CELLS NONE OTHER NO ORGANISMS SEEN > LOWER RESPIRATORY CULTURE Final 02/17/17-0920 Scant mixed jagdish after 2 days with Light growth of: PSEUDOMONAS AERUGINOSA 1. PSEUDOMONAS AERUGINOSA RX AB ------ -- CEFTAZIDIME S CIPROFLOXACIN S GENTAMICIN S IMIPENEM S Recent Imaging Studies: [facility] 02/16/17: IMPRESSION: 1. Mild pooling of contrast in the valleculae seen with puree. 2. Otherwise unremarkable exam. 3. Speech pathologist assessment issued separately. DICTATED BY: JAMAL CLIFFORD,GUCCI Severino DATE/TIME DICTATED:02/16/17 1646 Assessment/Plan Impression: 76-year-old [place] with a past medical history of severe emphysema/COPD on 1.5-2 L of oxygen at home, atrial fibrillation on Eliquis, left lung cancer status post radiation in September 2015, anxiety, depression, osteoporosis admitted 02/14/17 with : 1. Postobstructive pneumonia; CT chest revealed [] endobronchial occlusion of the posterior and medial basal segmental airways [] resultant postobstructive dense consolidation is seen in both lower lobes. Sputum cx + Ps. aeruginosa pansensitive. 2. Persistent leukocytosis; consider CMV DNA PCR in blood r/o CMV reactivation in immunocompromised patient severely ill 3. Cachexia Suggestion: 1. F/U nasal MRSA surv cx and if negative d/c iv Vancomycin; vanco trough 02/19 if not performed today. F/u pulm recom. 2. Continue empiric abx coverage (D #5) w/ iv ceftazidime (1 gm iv q 8h recommended dose!). 3. Trend CBC/BMP. 4. F/U CXR 02/19.
[2017-02-18 14:29] VITALS: BP 118/68
[2017-02-18 21:45] VITALS: BP 114/70
[2017-02-19 07:10] VITALS: BP 140/84
--- NOTE | 2017-02-19 07:20 | PN- Housestaff ---
Subjective Follow-up For: Pseudomonas pneumonia Hypoxic respiratory failure Guaiac positive stools Subjective: Seen and examined patient. Continues to be short of breath at rest. States that as she is a mouth breather she is have difficulty when she eats. Denies fever, chills, abdominal pain. Review of Systems Constitutional: Reports: malaise, weakness. Denies: chills, diaphoresis, fever, unexplained weight loss. Cardiovascular: Denies: chest pain, edema, orthopena, palpitations, peripheral edema, syncope. Respiratory: Reports: hemoptysis, short of breath, wheezing. Denies: cough, orthopnea, sputum production, stridor. Gastrointestinal: Denies: abdominal pain, bloating, constipation, diarrhea, distention, bowel incontinence, melena, nausea, bloody stool, changes in stool, vomiting, steatorrhea. Genitourinary: Denies: discharge, dysuria, frequency, hematuria, hesitation, nocturia, pain, urgency. Objective Last 24 Hrs of Vital Signs/I&O Vital Signs Date Time Temp Pulse Resp B/P B/P Pulse O2 O2 Flow FiO2 Mean Ox Delivery Rate 02/19 1013 90 140/90 02/19 0800 Nasal 6.0L Cannula 02/19 0710 97.8 96 20 140/84 100 Nasal 7.0L Cannula 02/19 0055 99 Nasal 7.0L Cannula 02/19 0000 97 Nasal 6.0L Cannula 02/18 2145 97.5 78 20 114/70 97 Nasal 6.0L Cannula 02/18 1600 Nasal 7.0L Cannula 02/18 1552 96 Nasal 7.0L Cannula 02/18 1429 97.0 80 20 118/68 91 02/18 1130 95 Nasal Cannula Intake & Output 02/19 1600 02/19 0800 02/19 0000 Intake Total 240 440 Output Total 300 350 Balance -60 90 Intake, IV 280 Intake, Oral 240 160 Output, Urine 300 350 Physical Exam General Appearance: Alert, Oriented X3, Mild Distress Cardiovascular: Regular Rate, Normal S1, Normal S2 Lungs: b/l coarse rhonchi in all areas Abdomen: Normal Bowel Sounds, Soft, No Tenderness Current Medications: Current Medications Sig/Kirill Start time Last Medication Dose Route Stop Time Status Admin Albuterol Sulfate 3 ML EVERY 4 HRS/AWAKE 02/16 2000 AC 02/19 INH 0835 Albuterol Sulfate 2 PUF Q4P PRN 02/15 1030 AC INH Apixaban 2.5 MG BID 02/14 2200 AC 02/19 PO 1013 Atorvastatin Calcium 80 MG 1700 02/14 1700 AC 02/18 PO 1545 Budesonide/ 2 PUF BID 02/15 1045 AC 02/19 Formoterol Fumarate INH 1005 Ceftazidime 1,000 MG Q12H 02/15 0800 AC 02/19 IV 0803 Diltiazem HCl 90 MG DAILY 02/14 1149 AC 02/19 PO 1013 Escitalopram Oxalate 10 MG DAILY 02/15 1000 AC 02/18 PO 0940 Glycerin 2 SPRAY Q2P PRN 02/14 1200 AC PO Guaifenesin 600 MG Q12 02/14 2200 AC 02/19 PO 1013 Lorazepam 0.125 MG BID PRN 02/17 1753 AC 02/19 PO 02/24 1752 1013 Melatonin 10 MG AT BEDTIME 02/14 2200 AC 02/18 PO 2247 Methylprednisolone 40 MG Q12 02/17 2200 AC 02/19 IV 1004 Ondansetron HCl 4 MG ONCE ONE 02/18 1830 DC 02/18 PO 02/18 1831 1828 Ondansetron HCl 4 MG .STK-MED ONE 02/18 1824 DC IM 02/18 1825 Potassium Phosphate 15 mMol ONE ONE 02/18 1600 DC 02/18 Sodium Chloride 250 ML IV 02/18 2003 1825 Potassium Phosphate 15 mMol ONE ONE 02/18 1130 DC 02/18 Sodium Chloride 250 ML IV 02/18 1533 1413 Sodium Chloride 2 SPRAY Q4P PRN 02/15 1215 AC 02/15 MERLE 2239 Sodium Chloride 1,000 ML SEE RATE 02/14 1100 AC 02/15 IV 0144 Tiotropium [place] 1 PUF DAILY 02/16 1000 AC 02/19 INH 1013 Vancomycin HCl 750 MG DAILY 02/15 1000 AC 02/19 Sodium Chloride 250 ML IV 1030 Last 24 Hrs of Lab/Mannie Results Last 24 Hrs of Labs/Mics: Laboratory Tests 02/19/17 0800: Anion Gap 4 L, Estimated GFR > 60, BUN/Creatinine Ratio 52.0 H, CBC w Diff Pending, WBC Pending, RBC Pending, Hgb Pending, Hct Pending, MCV Pending, MCH Pending, RDW Pending, Plt Count Pending, MPV Pending, PUBS MCHC Pending Assessment/Plan Assessment: 76-year-old woman from [place] with a past medical history of COPD on 1.5-2 L of oxygen at home, atrial fibrillation on Eliquis, left lung cancer status post radiation in September 2015, anxiety, depression, osteoporosis, recently admitted to [facility] on 01/31/17 episode of syncope BIBA for episode of desaturation at the ECF. CXR pertinant for increasing consolidation in the medial aspect of the right lung base,concerning for pneumonia. CT chest without contrast significant for endotracheal debris/mucus, extensive filling defects seen in the lobar and segmental airways of both lower lobes with complete occlusion of the medial and posterior basal segmental airways leading to dense parenchymal consolidation in both lower lobes. Problem list: 1. Pseudomonas healthcare acquired pneumonia 2. Acute hypoxic respiratory failure Pseudomonas HCAP/Acute hypoxic respiratory failure/end stage COPD * Currently saturating 100% on 6L via nasal cannula, taper O2 as tolerated * Continue with ceftazidime for Pseudomonas in sputum culture * Respiratory culture neg for MRSA, will dc vanco per ID recomendations * Follow-up magnesium and phosphorus levels normal * Continue with Solu-Medrol 40 mg IV Q12 * Continue mucolytics with acappella therapy, Mucinex 600 mg Q12. If concern for mucous plugging consider N-acetylcysteine * At this time no plan to continue with bronchoscopy in the setting of high risk for intubation Atrial fibrillation * guaic positive stool. Continue on Eliquis. Diltiazem and aspirin Depression and anxiety * Continue Ativan and Lexapro DVT prophylaxis with Eliquis Heart healthy diet DNR/DNI Problem List: 1. Pseudomonas pneumonia 2. Healthcare associated bacterial pneumonia 3. Atrial fibrillation Pain Ratin Pain Location: na Pain Goal: Pain 4 or less Pain Plan: current regimen Tomorrow's Labs & Rationales: cbc/bep Consulting Request: Consulting Specialty: Pulmonary Disease
--- NOTE | 2017-02-19 08:24 | RADIOLOGY REPORT ---
EXAMINATION: CHEST 1 VIEW CLINICAL INFORMATION: Hypoxia. COMPARISON: Multiple prior exams are reviewed. The most recent is from 02/14/2017.. TECHNIQUE: An AP view of the chest is provided. FINDINGS: The cardiac silhouette is stable. There is persistent streaky and patchy opacification at the right lung base. There is increasing airspace disease at the left lung base. The lungs are hyperinflated. The osseous structures are stable. IMPRESSION: Persistent airspace disease at the right lung base. Increasing airspace disease at the left lung base.
--- NOTE | 2017-02-19 08:24 | PN- Pulmonary ---
Subjective HPI/Critical Care Issues: Patient continues to feel weak and unable to get out of bed Objective Current Medications: Current Medications Sig/Kirill Start time Last Medication Dose Route Stop Time Status Admin Albuterol Sulfate 3 ML EVERY 4 HRS/AWAKE 02/15 2000 AC 02/19 INH 0053 Albuterol Sulfate 2 PUF Q4P PRN 02/15 1030 AC INH Apixaban 2.5 MG BID 02/14 2200 AC 02/18 PO 205 Atorvastatin Calcium 80 MG 1700 02/14 1700 AC 02/18 PO 1545 Budesonide/ 2 PUF BID 02/15 1045 AC 02/18 Formoterol Fumarate INH 2052 Ceftazidime 1,000 MG Q12H 02/15 0800 AC 02/19 IV 0803 Diltiazem HCl 90 MG DAILY 02/14 1149 AC 02/18 PO 0939 Escitalopram Oxalate 10 MG DAILY 02/15 1000 AC 02/18 PO 0940 Glycerin 2 SPRAY Q2P PRN 02/14 1200 AC PO Guaifenesin 600 MG Q12 02/14 2200 AC 02/18 PO 205 Lorazepam 0.125 MG BID PRN 02/17 1753 AC 02/18 PO 02/24 175 205 Melatonin 10 MG AT BEDTIME 02/14 2200 AC 02/18 PO 2247 Methylprednisolone 40 MG Q12 02/17 2200 AC 02/18 IV 2052 Ondansetron HCl 4 MG ONCE ONE 02/18 1830 DC 02/18 PO 02/18 183 1828 Ondansetron HCl 4 MG .STK-MED ONE 02/18 1824 DC IM 02/18 1825 Potassium Phosphate 15 mMol ONE ONE 02/18 1600 DC 02/18 Sodium Chloride 250 ML IV 02/18 2003 182 Potassium Phosphate 15 mMol ONE ONE 02/18 1130 DC 02/18 Sodium Chloride 250 ML IV 02/18 1533 1413 Sodium Chloride 2 SPRAY Q4P PRN 02/15 1215 AC 02/15 MERLE 2239 Sodium Chloride 1,000 ML SEE RATE 02/14 1100 AC 02/15 IV 0144 Tiotropium [place] 1 PUF DAILY 02/16 1000 AC 02/18 INH 0832 Vancomycin HCl 750 MG DAILY 02/15 1000 AC 02/18 Sodium Chloride 250 ML IV 1041 Vital Signs & I&O Last 24 Hrs of Vitals and I&O: Vital Signs Date Time Temp Pulse Resp B/P B/P Pulse O2 O2 Flow FiO2 Mean Ox Delivery Rate 02/19 0710 97.8 96 20 140/84 100 Nasal 7.0L Cannula 02/19 0055 99 Nasal 7.0L Cannula 02/19 0000 97 Nasal 6.0L Cannula 02/18 2145 97.5 78 20 114/70 97 Nasal 6.0L Cannula 02/18 1600 Nasal 7.0L Cannula 02/18 1552 96 Nasal 7.0L Cannula 02/18 1429 97.0 80 20 118/68 91 02/18 1130 95 Nasal Cannula 02/18 0939 91 136/56 Intake & Output 02/19 1600 02/19 0800 02/19 0000 Intake Total 240 440 Output Total 300 350 Balance -60 90 Intake, IV 280 Intake, Oral 240 160 Output, Urine 300 350 Section saturations 7 L 100% exam for chest shows diminished breath sounds occasional rhonchi there are no wheezes cardiac exam shows regular S1 and S2 without murmurs Impression/Plan Impression/Plan Impression/Plan: 37-year-old history of severe oxygen-dependent COPD lung cancer admitted with probable aspiration pneumonia culture positive with Pseudomonas and he could've gram-negative pneumonia. Recommendations: Taper FiO2. Physical therapy. Aspiration precautions. Repeat chest x-ray and CBCs. Narrow antibiotics per ID recommendation.
[2017-02-19 10:56] LABS: ABSOLUTE BASOPHIL COUNT 0 /CUMM (0.0-0.2); ABSOLUTE EOSINOPHIL COUNT 0 /CUMM (0.0-0.7); ABSOLUTE GRANULOCYTE CT 20.2 /CUMM (1.4-6.5); ABSOLUTE LYMPH COUNT 0.1 /CUMM (1.2-3.4); ABSOLUTE MONOCYTE COUNT 0.4 /CUMM (0.10-0.60); BASOPHIL % 0 % (0.0-2.0); EOSINOPHIL % 0 % (0-5); GRANULOCYTE % 97.3 % (42.2-75.2); HEMATOCRIT 34.2 % (37-47); MEAN CORPUSCULAR HGB 27.9 PG (27.0-31.0); MEAN CORPUSCULAR HGB CONC 32.5 G/DL (33.0-37.0); MEAN CORPUSCULAR VOLUME 85.8 FL (81.0-99.0); MEAN PLATELET VOLUME 8.2 FL (7.4-10.4); PLATELET COUNT 213 /CUMM (130-400); RBC DISTRIBUTION WIDTH 18.2 % (11.5-14.5); RED BLOOD CELL CT 3.99 /CUMM (4.20-5.40); WHITE BLOOD CELL COUNT 20.7 /CUMM (4.8-10.8)
[2017-02-19 14:46] VITALS: BP 110/72
--- NOTE | 2017-02-19 15:24 | PN- Infect Dx ---
Subjective Subjective: Afebrile on steroids. She feels poorly with shortness of breath and cough, though it is mostly dry. Objective Last 24 Hrs of Vital Signs/I&O Vital Signs Date Time Temp Pulse Resp B/P B/P Pulse O2 O2 Flow FiO2 Mean Ox Delivery Rate 02/19 1446 97.7 68 17 110/72 96 02/19 1120 Nasal 6.0L Cannula 02/19 1013 90 140/90 02/19 0800 Nasal 6.0L Cannula 02/19 0710 97.8 96 20 140/84 100 Nasal 7.0L Cannula 02/19 0055 99 Nasal 7.0L Cannula 02/19 0000 97 Nasal 6.0L Cannula 02/18 2145 97.5 78 20 114/70 97 Nasal 6.0L Cannula 02/18 1600 Nasal 7.0L Cannula 02/18 1552 96 Nasal 7.0L Cannula Intake & Output 02/19 1600 02/19 0800 02/19 0000 Intake Total 240 440 Output Total 300 350 Balance -60 90 Intake, IV 280 Intake, Oral 240 160 Output, Urine 300 350 Physical Exam Other Physical Findings: She appears chronically ill but in no acute distress Lungs bilateral rhonchi Heart irregular rhythm with no murmur Extremities no cyanosis, clubbing or edema Results Last 24 Hours of Lab Results: Laboratory Tests 02/19 0800 Chemistry Sodium (137 - 145 mmol/L) 147 H Potassium (3.5 - 5.1 mmol/L) 5.2 H Chloride (98 - 107 mmol/L) 106 Carbon Dioxide (22 - 30 mmol/L) 38 H Anion Gap (5 - 16) 4 L BUN (7 - 17 mg/dL) 26 H Creatinine (0.5 - 1.0 mg/dL) 0.5 Estimated GFR (>60 ml/min) > 60 BUN/Creatinine Ratio (7 - 25 %) 52.0 H Hematology CBC w Diff MAN DIFF ORDERED WBC (4.8 - 10.8 /CUMM) 20.7 H RBC (4.20 - 5.40 /CUMM) 3.99 L Hgb (12.0 - 16.0 G/DL) 11.1 L Hct (37 - 47 %) 34.2 L MCV (81.0 - 99.0 FL) 85.8 MCH (27.0 - 31.0 PG) 27.9 RDW (11.5 - 14.5 %) 18.2 H Plt Count (130 - 400 /CUMM) 213 MPV (7.4 - 10.4 FL) 8.2 Gran % (42.2 - 75.2 %) 97.3 H Lymphocytes % (20.5 - 51.1 %) 0.6 L Monocytes % (1.7 - 9.3 %) 2.1 Eosinophils % (0 - 5 %) 0 Basophils % (0.0 - 2.0 %) 0 L Absolute Granulocytes (1.4 - 6.5 /CUMM) 20.2 H Segmented Neutrophils (42.2 - 75.2 %) 95 H Band Neutrophils (0.0 - 5.0 %) 5 Absolute Lymphocytes (1.2 - 3.4 /CUMM) 0.1 L Absolute Monocytes (0.10 - 0.60 /CUMM) 0.4 Absolute Eosinophils (0.0 - 0.7 /CUMM) 0 Absolute Basophils (0.0 - 0.2 /CUMM) 0 Platelet Estimate (ADEQUATE) ADEQUATE Normocytic RBCs VERIFIED Normochromic RBCs VERIFIED Elliptocytes FEW PUBS MCHC (33.0 - 37.0 G/DL) 32.5 L Last 24 Hours of Mannie Results: No recent cultures Recent Imaging Studies: Chest x-ray February 19, personally reviewed, reveals persistent airspace disease at the right lung base Assessment/Plan Impression: 76-year-old woman with a past medical history of 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 She remains afebrile but white blood cell count remains elevated, likely secondary to steroids, on vancomycin and Ceftazidime. Suggestion: 1. Would attempt to obtain more information regarding her Levaquin allergy 2. Discontinue Vancomycin 3. Continue Ceftazidime, with eventual change to Ciprofloxacin if her allergy to quinolones is not a true allergy
--- NOTE | 2017-02-19 16:35 | PN- Att Addend ---
Attending Addendum Attending Brief Note Patient slept better last evening still SOB weak and trying to eat had swallowing evaluation. Appreciate pulmonarys imput and recommendations. Intake & Output 02/19 1600 02/19 0400 02/18 1600 02/18 0400 02/17 1600 02/17 0400 Intake Total 740 440 033 819 1189 270 Output Total 600 350 550 300 650 Balance 140 90 -190 10 360 270 Intake, IV 150 280 30 280 30 Intake, Oral 590 160 360 280 730 240 Number 2 Bowel Movements Output, Urine 600 350 550 300 650 Current Medications Sig/Kirill Start time Last Medication Dose Route Stop Time Status Admin Albuterol Sulfate 3 ML EVERY 4 HRS/AWAKE 02/15 2000 AC 02/19 INH 1156 Albuterol Sulfate 2 PUF Q4P PRN 02/15 1030 AC INH Apixaban 2.5 MG BID 02/14 2200 AC 02/19 PO 1013 Atorvastatin Calcium 80 MG 1700 02/14 1700 AC 02/18 PO 1545 Budesonide/ 2 PUF BID 02/15 1045 AC 02/19 Formoterol Fumarate INH 1005 Ceftazidime 1,000 MG Q12H 02/15 0800 AC 02/19 IV 0803 Diltiazem HCl 90 MG DAILY 02/14 1149 AC 02/19 PO 1013 Escitalopram Oxalate 10 MG DAILY 02/15 1000 AC 02/18 PO 0940 Glycerin 2 SPRAY Q2P PRN 02/14 1200 AC PO Guaifenesin 600 MG Q12 02/14 2200 AC 02/19 PO 1013 Lorazepam 0.125 MG BID PRN 02/17 1753 AC 02/19 PO 02/24 175 1013 Melatonin 10 MG AT BEDTIME 02/14 220 AC 02/18 PO 2247 Methylprednisolone 40 MG Q12 02/17 220 AC 02/19 IV 1004 Ondansetron HCl 4 MG ONCE ONE 02/18 1830 DC 02/18 PO 02/18 183 1828 Ondansetron HCl 4 MG .STK-MED ONE 02/18 1824 DC 02/18 1825 Patient Medication 1 ED .STK-MED ONE 02/19 1306 DC Teaching ED 02/19 1307 Potassium Phosphate 15 mMol ONE ONE 02/18 1600 DC 02/18 Sodium Chloride 250 ML IV 02/18 2003 1825 Sodium Chloride 2 SPRAY Q4P PRN 02/15 1215 AC 02/15 MERLE 2239 Sodium Chloride 1,000 ML SEE RATE 02/14 1100 AC 02/15 IV 0144 Tiotropium [place] 1 PUF DAILY 02/16 1000 AC 02/19 INH 1013 Vancomycin HCl 750 MG DAILY 02/15 1000 DC 02/19 Sodium Chloride 250 ML IV 1030 Laboratory Tests 02/19/17 0800: Anion Gap 4 L, Estimated GFR > 60, BUN/Creatinine Ratio 52.0 H, CBC w Diff MAN DIFF ORDERED, RBC 3.99 L, MCV 85.8, MCH 27.9, RDW 18.2 H, MPV 8.2, Gran % 97.3 H, Lymphocytes % 0.6 L, Monocytes % 2.1, Eosinophils % 0, Basophils % 0 L, Absolute Granulocytes 20.2 H, Segmented Neutrophils 95 H, Band Neutrophils 5, Absolute Lymphocytes 0.1 L, Absolute Monocytes 0.4, Absolute Eosinophils 0, Absolute Basophils 0, Platelet Estimate ADEQUATE, Normocytic RBCs VERIFIED, Normochromic RBCs VERIFIED, Elliptocytes FEW, PUBS MCHC 32.5 L 02/18/17 1025: Anion Gap 7, Estimated GFR > 60, BUN/Creatinine Ratio 65.0 H, Phosphorus 2.4 L , Magnesium 2.2, Vancomycin Trough < 5.0 L 02/17/17 1732: CBC w Diff NO MAN DIFF REQ, RBC 4.08 L, MCV 85.5, MCH 27.7, RDW 17.8 H, MPV 8.1, Gran % 97.5 H, Lymphocytes % 0.5 L, Monocytes % 2.0, Eosinophils % 0, Basophils % 0 L, Absolute Granulocytes 18.6 H, Absolute Lymphocytes 0.1 L, Absolute Monocytes 0.4, Absolute Eosinophils 0, Absolute Basophils 0, PUBS MCHC 32.3 L 02/17/17 0705: CBC w Diff NO MAN DIFF REQ, RBC 3.92 L, MCV 85.8, MCH 28.5, RDW 18.2 H, MPV 7.9, Gran % 98.7 H, Lymphocytes % 0.6 L, Monocytes % 0.7 L, Eosinophils % 0, Basophils % 0 L, Absolute Granulocytes 19.6 H, Absolute Lymphocytes 0.1 L, Absolute Monocytes 0.1 L, Absolute Eosinophils 0, Absolute Basophils 0, PUBS MCHC 33.2 Microbiology 02/17 1925 UPPER RESP: Surveillance Culture - COMP Microbiology 02/17 1925 UPPER RESP: Surveillance Culture - COMP
[2017-02-19 22:51] VITALS: BP 100/60
[2017-02-20 06:31] VITALS: BP 98/64
--- NOTE | 2017-02-20 07:17 | PN- Housestaff ---
Subjective Follow-up For: Pseudomonas pneumonia Hypoxic respiratory failure Guaiac positive stools Subjective: seen and examined patient. She does not know if her breathing has improved. encouraged PO intake. Denies fever, chills, shortness of breath, chest pain, constipation or abdominal pain. Review of Systems Constitutional: Denies: chills, diaphoresis, fever, malaise, weakness, unexplained weight loss. Cardiovascular: Denies: chest pain, edema, orthopena, palpitations, peripheral edema, syncope. Respiratory: Denies: cough, hemoptysis, orthopnea, short of breath, sputum production, stridor, wheezing. Gastrointestinal: Denies: abdominal pain, bloating, constipation, diarrhea, distention, bowel incontinence, melena, nausea, bloody stool, changes in stool, vomiting, steatorrhea. Objective Last 24 Hrs of Vital Signs/I&O Vital Signs Date Time Temp Pulse Resp B/P B/P Pulse O2 O2 Flow FiO2 Mean Ox Delivery Rate 02/20 0845 93 Nasal 7.0L Cannula 02/20 0800 93 Nasal 7.0L Cannula 02/20 0631 97.7 92 21 98/64 98 Nasal 7.0L Cannula 02/20 0049 96 Nasal 7.0L Cannula 02/19 2251 97.5 91 20 100/60 98 Nasal Cannula 02/19 1640 95 Nasal 8L Cannula 02/19 1600 Nasal 8L Cannula 02/19 1446 97.7 68 17 110/72 96 02/19 1120 Nasal 6.0L Cannula Intake & Output 02/20 1600 02/20 0800 02/20 0000 Intake Total 240 Output Total 450 Balance -210 Intake, Oral 240 Number 1 Bowel Movements Output, Urine 450 Physical Exam General Appearance: Alert, Oriented X3, Cooperative, Mild Distress, cachetic Cardiovascular: Regular Rate, Normal S1, Normal S2 Lungs: b/l diminished breath sounds Abdomen: Normal Bowel Sounds, Soft, No Tenderness Extremities: No Edema Current Medications: Current Medications Sig/Kirill Start time Last Medication Dose Route Stop Time Status Admin Albuterol Sulfate 3 ML EVERY 4 HRS/AWAKE 02/16 2000 AC 02/20 INH 0831 Albuterol Sulfate 2 PUF Q4P PRN 02/15 1030 AC INH Apixaban 2.5 MG BID 02/14 220 AC 02/19 PO 2112 Atorvastatin Calcium 80 MG 1700 02/14 1700 AC 02/19 PO 1639 Budesonide/ 2 PUF BID 02/15 1045 AC 02/19 Formoterol Fumarate INH 2110 Ceftazidime 1,000 MG Q12H 02/15 0800 AC 02/20 IV 0805 Diltiazem HCl 90 MG DAILY 02/14 1149 AC 02/19 PO 1013 Escitalopram Oxalate 10 MG DAILY 02/15 1000 AC 02/18 PO 0940 Glycerin 2 SPRAY Q2P PRN 02/14 1200 AC PO Guaifenesin 600 MG Q12 02/14 2200 AC 02/19 PO 2112 Lorazepam 0.125 MG BID PRN 02/17 1753 AC 02/19 PO 02/24 175 2118 Melatonin 10 MG AT BEDTIME 02/14 2200 AC 02/18 PO 2247 Methylprednisolone 40 MG Q12 02/17 220 AC 02/19 IV 2110 Patient Medication 1 ED .STK-MED ONE 02/19 1306 MA Teaching ED 02/19 1307 Sodium Chloride 2 SPRAY Q4P PRN 02/15 1215 AC 02/15 MERLE 2239 Sodium Chloride 1,000 ML SEE RATE 02/14 1100 AC 02/15 IV 0144 Tiotropium [place] 1 PUF DAILY 02/16 1000 AC 02/19 INH 1013 Vancomycin HCl 750 MG DAILY 02/15 1000 DC 02/19 Sodium Chloride 250 ML IV 1030 Last 24 Hrs of Lab/Mannie Results Last 24 Hrs of Labs/Mics: Laboratory Tests 02/20/17 0740: Anion Gap 5, Estimated GFR > 60, BUN/Creatinine Ratio 52.0 H 02/20/17 0600: CBC w Diff Pending, WBC Pending, RBC Pending, Hgb Pending, Hct Pending, MCV Pending, MCH Pending, RDW Pending, Plt Count Pending, MPV Pending, PUBS MCHC Pending Assessment/Plan Assessment: 76-year-old woman from [place] with a past medical history of COPD on 1.5-2 L of oxygen at home, atrial fibrillation on Eliquis, left lung cancer status post radiation in September 2015, anxiety, depression, osteoporosis, recently admitted to [facility] on 01/31/17 episode of syncope BIBA for episode of desaturation at the ECF. CXR pertinant for increasing consolidation in the medial aspect of the right lung base,concerning for pneumonia. CT chest without contrast significant for endotracheal debris/mucus, extensive filling defects seen in the lobar and segmental airways of both lower lobes with complete occlusion of the medial and posterior basal segmental airways leading to dense parenchymal consolidation in both lower lobes. Problem list: 1. Pseudomonas healthcare acquired pneumonia 2. Acute hypoxic respiratory failure 3. Guaic positive stools Pseudomonas HCAP/Acute hypoxic respiratory failure/end stage COPD * Currently saturating 93% on 7L via nasal cannula, taper O2 as tolerated * leukcocytosis trending down, most likely secondary to IV steroids. * Continue with ceftazidime for Pseudomonas in sputum culture * Respiratory culture neg for MRSA, will dc vanco per ID recomendations * Will switch Solu-Medrol 40 mg IV Q12 to PO prednisone tommorrow * Continue mucolytics with acappella therapy, Mucinex 600 mg Q12. If concern for mucous plugging consider N-acetylcysteine * At this time no plan to continue with bronchoscopy in the setting of high risk for intubation * Goals of care to be addressed. Atrial fibrillation * guaic positive stool. Continue on Eliquis, Diltiazem and Aspirin Depression and anxiety * Continue Ativan and Lexapro DVT prophylaxis with Eliquis Heart healthy diet DNR/DNI Problem List: 1. Acute bronchitis with chronic obstructive pulmonary disease (COPD) 2. Hypoxia 3. Atrial fibrillation 4. Pseudomonas pneumonia Pain Ratin Pain Location: na Pain Goal: Pain 4 or less Pain Plan: current regimen Tomorrow's Labs & Rationales: none required Consulting Request: Consulting Specialty: Pulmonary Disease
--- NOTE | 2017-02-20 08:27 | PN- Pulmonary ---
Subjective HPI/Critical Care Issues: Patient continues to remain weak her oxygen requirements have decreased. Leukocytosis persists. Objective Current Medications: Current Medications Sig/Kirill Start time Last Medication Dose Route Stop Time Status Admin Albuterol Sulfate 3 ML EVERY 4 HRS/AWAKE 02/15 2000 AC 02/20 INH 0436 Albuterol Sulfate 2 PUF Q4P PRN 02/15 1030 AC INH Apixaban 2.5 MG BID 02/14 2200 AC 02/19 PO 2112 Atorvastatin Calcium 80 MG 1700 02/14 1700 AC 02/19 PO 1639 Budesonide/ 2 PUF BID 02/15 1045 AC 02/19 Formoterol Fumarate INH 2110 Ceftazidime 1,000 MG Q12H 02/15 0800 AC 02/20 IV 0805 Diltiazem HCl 90 MG DAILY 02/14 1149 AC 02/19 PO 1013 Escitalopram Oxalate 10 MG DAILY 02/15 1000 AC 02/18 PO 0940 Glycerin 2 SPRAY Q2P PRN 02/14 1200 AC PO Guaifenesin 600 MG Q12 02/14 2200 AC 02/19 PO 2112 Lorazepam 0.125 MG BID PRN 02/17 1753 AC 02/19 PO 02/24 175 2118 Melatonin 10 MG AT BEDTIME 02/14 2200 AC 02/18 PO 2247 Methylprednisolone 40 MG Q12 02/17 220 AC 02/19 IV 2110 Patient Medication 1 ED .STK-MED ONE 02/19 1306 MA Teaching ED 02/19 1307 Sodium Chloride 2 SPRAY Q4P PRN 02/15 1215 AC 02/15 MERLE 2239 Sodium Chloride 1,000 ML SEE RATE 02/14 1100 AC 02/15 IV 0144 Tiotropium [place] 1 PUF DAILY 02/16 1000 AC 02/19 INH 1013 Vancomycin HCl 750 MG DAILY 02/15 1000 DC 02/19 Sodium Chloride 250 ML IV 1030 Vital Signs & I&O Last 24 Hrs of Vitals and I&O: Vital Signs Date Time Temp Pulse Resp B/P B/P Pulse O2 O2 Flow FiO2 Mean Ox Delivery Rate 02/20 0631 97.7 92 21 98/64 98 Nasal 7.0L Cannula 02/20 0049 96 Nasal 7.0L Cannula 02/19 2251 97.5 91 20 100/60 98 Nasal Cannula 02/19 1640 95 Nasal 8L Cannula 02/19 1600 Nasal 8L Cannula 02/19 1446 97.7 68 17 110/72 96 02/19 1120 Nasal 6.0L Cannula 02/19 1013 90 140/90 Intake & Output 02/20 1600 02/20 0800 02/20 0000 Intake Total 240 Output Total 450 Balance -210 Intake, Oral 240 Number 1 Bowel Movements Output, Urine 450 Oxygen saturation 7 L 98% oxygen has been tapered to 6 L exam for chest shows occasional rhonchi cardiac exam shows regular S1 and S2 without murmurs chest x- ray continues to show right lateral pulmonary infiltrates Impression/Plan Impression/Plan Impression/Plan: 37-year-old history of severe oxygen-dependent COPD lung cancer admitted with probable aspiration pneumonia culture positive with Pseudomonas gram-negative pneumonia. Recommendations: Taper FiO2. Physical therapy. Aspiration precautions. Complete course of antibiotics patient will need to return to short-term rehabilitation
[2017-02-20 09:15] LABS: ABSOLUTE BASOPHIL COUNT 0 /CUMM (0.0-0.2); ABSOLUTE EOSINOPHIL COUNT 0.1 /CUMM (0.0-0.7); ABSOLUTE GRANULOCYTE CT 18.2 /CUMM (1.4-6.5); ABSOLUTE LYMPH COUNT 0.1 /CUMM (1.2-3.4); ABSOLUTE MONOCYTE COUNT 0.3 /CUMM (0.10-0.60); BASOPHIL % 0 % (0.0-2.0); EOSINOPHIL % 0.6 % (0-5); GRANULOCYTE % 97.2 % (42.2-75.2); HEMATOCRIT 32.7 % (37-47); MEAN CORPUSCULAR HGB 28.2 PG (27.0-31.0); MEAN CORPUSCULAR VOLUME 85.4 FL (81.0-99.0); MEAN PLATELET VOLUME 8.1 FL (7.4-10.4); PLATELET COUNT 191 /CUMM (130-400); RBC DISTRIBUTION WIDTH 18.3 % (11.5-14.5); RED BLOOD CELL CT 3.83 /CUMM (4.20-5.40)
--- NOTE | 2017-02-20 10:07 | PN- Att Addend ---
Attending Addendum Attending Brief Note No major changes, still in bed does not want to get up yet, will try after lunch and see the physical therapist. Oxygen is on. She said she slept a little bit last night and maybe eating a little better. No changes on physical. Will continue treatment as per Dr. Richardson's recommendations. Intake & Output 02/20 1600 02/20 0800 02/20 0000 02/19 1600 02/19 0800 02/19 0000 Intake Total 240 500 240 440 Output Total 450 300 300 350 Balance -210 200 -60 90 Intake, IV 150 280 Intake, Oral 240 350 240 160 Number 1 Bowel Movements Output, Urine 450 300 300 350 Current Medications Sig/Kirill Start time Last Medication Dose Route Stop Time Status Admin Albuterol Sulfate 3 ML EVERY 4 HRS/AWAKE 02/15 2000 AC 02/20 INH 0831 Albuterol Sulfate 2 PUF Q4P PRN 02/15 1030 AC INH Apixaban 2.5 MG BID 02/14 2200 AC 02/19 PO 2112 Atorvastatin Calcium 80 MG 1700 02/14 1700 AC 02/19 PO 1639 Budesonide/ 2 PUF BID 02/15 1045 AC 02/19 Formoterol Fumarate INH 2110 Ceftazidime 1,000 MG Q12H 02/15 0800 AC 02/20 IV 0805 Diltiazem HCl 90 MG DAILY 02/14 1149 AC 02/19 PO 1013 Escitalopram Oxalate 10 MG DAILY 02/15 1000 AC 02/18 PO 0940 Glycerin 2 SPRAY Q2P PRN 02/14 1200 AC PO Guaifenesin 600 MG Q12 02/14 2200 AC 02/19 PO 2112 Lorazepam 0.125 MG BID PRN 02/17 1753 AC 02/19 PO 02/24 1752 2118 Melatonin 10 MG AT BEDTIME 02/14 220 AC 02/18 PO 2247 Methylprednisolone 40 MG Q12 02/17 2200 AC 02/19 IV 2110 Patient Medication 1 ED .STK-MED ONE 02/19 1306 DC Teaching ED 02/19 1307 Sodium Chloride 2 SPRAY Q4P PRN 02/15 1215 AC 02/15 MERLE 2239 Sodium Chloride 1,000 ML SEE RATE 02/14 1100 AC 02/15 IV 0144 Tiotropium [place] 1 PUF DAILY 02/16 1000 AC 02/19 INH 1013 Vancomycin HCl 750 MG DAILY 02/15 1000 DC 02/19 Sodium Chloride 250 ML IV 1030 Laboratory Tests 02/20/17 0740: Anion Gap 5, Estimated GFR > 60, BUN/Creatinine Ratio 52.0 H 02/20/17 0600: CBC w Diff Pending, WBC Pending, RBC Pending, Hgb Pending, Hct Pending, MCV Pending, MCH Pending, RDW Pending, Plt Count Pending, MPV Pending, PUBS MCHC Pending 02/19/17 0800: Anion Gap 4 L, Estimated GFR > 60, BUN/Creatinine Ratio 52.0 H, CBC w Diff MAN DIFF ORDERED, RBC 3.99 L, MCV 85.8, MCH 27.9, RDW 18.2 H, MPV 8.2, Gran % 97.3 H, Lymphocytes % 0.6 L, Monocytes % 2.1, Eosinophils % 0, Basophils % 0 L, Absolute Granulocytes 20.2 H, Segmented Neutrophils 95 H, Band Neutrophils 5, Absolute Lymphocytes 0.1 L, Absolute Monocytes 0.4, Absolute Eosinophils 0, Absolute Basophils 0, Platelet Estimate ADEQUATE, Normocytic RBCs VERIFIED, Normochromic RBCs VERIFIED, Elliptocytes FEW, PUBS MCHC 32.5 L 02/18/17 1025: Anion Gap 7, Estimated GFR > 60, BUN/Creatinine Ratio 65.0 H, Phosphorus 2.4 L , Magnesium 2.2, Vancomycin Trough < 5.0 L Vital Signs Date Time Temp Pulse Resp B/P B/P Pulse O2 O2 Flow FiO2 Mean Ox Delivery Rate 02/20 0845 93 Nasal 7.0L Cannula 02/20 0800 93 Nasal 7.0L Cannula 02/20 0631 97.7 92 21 98/64 98 Nasal 7.0L Cannula 02/20 0049 96 Nasal 7.0L Cannula 02/19 2251 97.5 91 20 100/60 98 Nasal Cannula 02/19 1640 95 Nasal 8L Cannula 02/19 1600 Nasal 8L Cannula 02/19 1446 97.7 68 17 110/72 96 02/19 1120 Nasal 6.0L Cannula 02/19 1013 90 140/90 Intake & Output 02/20 1600 02/20 0800 02/20 0000 Intake Total 240 Output Total 450 Balance -210 Intake, Oral 240 Number 1 Bowel Movements Output, Urine 450
[2017-02-20 11:08] LABS: WHITE BLOOD CELL COUNT 18.8 /CUMM (4.8-10.8)
[2017-02-20 14:09] VITALS: BP 124/62
--- NOTE | 2017-02-20 14:15 | PN- Infect Dx ---
Subjective Subjective: Afebrile on steroids. She does not report any significant shortness of breath. She has a minimal cough and denies any chest pain. Objective Last 24 Hrs of Vital Signs/I&O Vital Signs Date Time Temp Pulse Resp B/P B/P Pulse O2 O2 Flow FiO2 Mean Ox Delivery Rate 02/20 1409 98.0 97 20 124/62 92 02/20 1115 97.5 97 22 120/70 02/20 0845 93 Nasal 7.0L Cannula 02/20 0800 93 Nasal 7.0L Cannula 02/20 0631 97.7 92 21 98/64 98 Nasal 7.0L Cannula 02/20 0049 96 Nasal 7.0L Cannula 02/20 0000 98 Nasal 7.0L Cannula 02/19 2251 97.5 91 20 100/60 98 Nasal Cannula 02/19 1640 95 Nasal 8L Cannula 02/19 1600 Nasal 8L Cannula 02/19 1446 97.7 68 17 110/72 96 Intake & Output 02/20 1600 02/20 0800 02/20 0000 Intake Total 30 240 Output Total 0 450 Balance 30 -210 Intake, IV 0 Intake, Oral 30 240 Number 0 1 Bowel Movements Output, Urine 0 450 Physical Exam Other Physical Findings: She is awake and alert in no acute distress Lungs decreased breath sounds bilaterally with occasional rhonchi Heart regular rhythm with no murmur Extremities no cyanosis, clubbing or edema Results Last 24 Hours of Lab Results: Laboratory Tests 02/20 02/20 0740 0600 Chemistry Sodium (137 - 145 mmol/L) 146 H Potassium (3.5 - 5.1 mmol/L) 4.5 Chloride (98 - 107 mmol/L) 104 Carbon Dioxide (22 - 30 mmol/L) 37 H Anion Gap (5 - 16) 5 BUN (7 - 17 mg/dL) 26 H Creatinine (0.5 - 1.0 mg/dL) 0.5 Estimated GFR (>60 ml/min) > 60 BUN/Creatinine Ratio (7 - 25 %) 52.0 H Hematology CBC w Diff NO MAN DIFF REQ WBC (4.8 - 10.8 /CUMM) 18.8 H RBC (4.20 - 5.40 /CUMM) 3.83 L Hgb (12.0 - 16.0 G/DL) 10.8 L Hct (37 - 47 %) 32.7 L MCV (81.0 - 99.0 FL) 85.4 MCH (27.0 - 31.0 PG) 28.2 RDW (11.5 - 14.5 %) 18.3 H Plt Count (130 - 400 /CUMM) 191 MPV (7.4 - 10.4 FL) 8.1 Gran % (42.2 - 75.2 %) 97.2 H Lymphocytes % (20.5 - 51.1 %) 0.4 L Monocytes % (1.7 - 9.3 %) 1.8 Eosinophils % (0 - 5 %) 0.6 Basophils % (0.0 - 2.0 %) 0 L Absolute Granulocytes (1.4 - 6.5 /CUMM) 18.2 H Absolute Lymphocytes (1.2 - 3.4 /CUMM) 0.1 L Absolute Monocytes (0.10 - 0.60 /CUMM) 0.3 Absolute Eosinophils (0.0 - 0.7 /CUMM) 0.1 Absolute Basophils (0.0 - 0.2 /CUMM) 0 PUBS MCHC (33.0 - 37.0 G/DL) 33.0 Last 24 Hours of Mannie Results: No recent cultures Assessment/Plan Impression: Stable on Ceftazidime Day 6 of treatment for a postobstructive pneumonia secondary to Pseudomonas, with a CT of the chest revealing endobronchial occlusion of the posterior and medial basal segmental airways and resultant postobstructive dense consolidation in both lower lobes. She remains afebrile with a persistent leukocytosis likely secondary to steroids. Suggestion: 1. Would attempt to obtain more information regarding her Levaquin allergy 2. Continue Ceftazidime, but would change to Ciprofloxacin 500 mg po every 12 hours if her "allergy" to quinolones is not a true allergy
[2017-02-20 22:14] VITALS: BP 128/66
[2017-02-21 06:34] VITALS: BP 118/60
--- NOTE | 2017-02-21 07:44 | PN- Housestaff ---
Subjective Follow-up For: Pseudomonas pneumonia Hypoxic respiratory failure Guaiac positive stools Subjective: seen and examined patient. Continues to be dyspneic at rest. She enjoys her coffee and is attempting to eat. Was unable to do much with PT yesterday, only sat on the edge of the bed. Review of Systems Constitutional: Reports: malaise, weakness. Denies: chills, diaphoresis, fever, unexplained weight loss. Cardiovascular: Denies: chest pain, edema, orthopena, palpitations, peripheral edema, syncope. Respiratory: Reports: cough, short of breath, stridor. Denies: hemoptysis, orthopnea, sputum production, wheezing. Gastrointestinal: Denies: no symptoms, abdominal pain, bloating, constipation, diarrhea, distention, bowel incontinence, melena, nausea, bloody stool, changes in stool, vomiting, steatorrhea. Objective Last 24 Hrs of Vital Signs/I&O Vital Signs Date Time Temp Pulse Resp B/P B/P Pulse O2 O2 Flow FiO2 Mean Ox Delivery Rate 02/21 0634 97.1 83 20 118/60 98 Nasal 7.0L Cannula 02/21 0028 97 Nasal 7.0L Cannula 02/21 0000 Nasal 7.0L Cannula 02/20 2214 97.5 94 20 128/66 91 Nasal 7.0L Cannula 02/20 1645 93 Nasal 7.0L Cannula 02/20 1600 93 Nasal 7.0L Cannula 02/20 1409 98.0 97 20 124/62 92 02/20 1115 97.5 97 22 120/70 02/20 0845 93 Nasal 7.0L Cannula Intake & Output 02/21 1600 02/21 0800 02/21 0000 Intake Total 360 260 Output Total 200 Balance 360 60 Intake, IV 20 Intake, Oral 360 240 Output, Urine 200 Physical Exam General Appearance: Alert, Oriented X3, Cooperative, Moderate Distress, cachetic Cardiovascular: Normal S1, Normal S2 Lungs: b/l decreased breath sounds Abdomen: Normal Bowel Sounds, Soft Current Medications: Current Medications Sig/Kirill Start time Last Medication Dose Route Stop Time Status Admin Albuterol Sulfate 3 ML EVERY 4 HRS/AWAKE 02/16 2000 AC 02/21 INH 0015 Albuterol Sulfate 2 PUF Q4P PRN 02/15 1030 AC INH Apixaban 2.5 MG BID 02/14 2200 AC 02/20 PO 2111 Atorvastatin Calcium 80 MG 1700 02/14 1700 AC 02/20 PO 1738 Budesonide/ 2 PUF BID 02/15 1045 AC 02/20 Formoterol Fumarate INH 2117 Ceftazidime 1,000 MG Q12H 02/15 0800 AC 02/20 IV 2107 Diltiazem HCl 90 MG DAILY 02/14 1149 AC 02/20 PO 1115 Escitalopram Oxalate 10 MG DAILY 02/15 1000 AC 02/20 PO 1113 Glycerin 2 SPRAY Q2P PRN 02/14 1200 AC PO Guaifenesin 600 MG Q12 02/14 2200 AC 02/20 PO 2111 Lorazepam 0.125 MG BID PRN 02/17 1753 AC 02/20 PO 02/24 175 2125 Melatonin 10 MG AT BEDTIME 02/14 220 AC 02/21 PO 0033 Methylprednisolone 40 MG Q12 02/17 2200 DC 02/20 IV 1113 Ondansetron HCl 4 MG ONCE ONE 02/20 1845 DC 02/20 PO 02/20 1846 1856 Prednisone 60 MG DAILY 02/21 1000 AC PO Sodium Chloride 2 SPRAY Q4P PRN 02/15 1215 AC 02/15 MERLE 2239 Sodium Chloride 1,000 ML SEE RATE 02/14 1100 AC 02/15 IV 0144 Tiotropium [place] 1 PUF DAILY 02/16 1000 AC 02/20 INH 1410 Assessment/Plan Assessment: 76-year-old woman from [place] with a past medical history of COPD on 1.5-2 L of oxygen at home, atrial fibrillation on Eliquis, left lung cancer status post radiation in September 2015, anxiety, depression, osteoporosis, recently admitted to [facility] on 01/31/17 episode of syncope BIBA for episode of desaturation at the ECF. CXR pertinant for increasing consolidation in the medial aspect of the right lung base,concerning for pneumonia. CT chest without contrast significant for endotracheal debris/mucus, extensive filling defects seen in the lobar and segmental airways of both lower lobes with complete occlusion of the medial and posterior basal segmental airways leading to dense parenchymal consolidation in both lower lobes. Problem list: 1. Pseudomonas healthcare acquired pneumonia 2. Acute hypoxic respiratory failure 3. Guaic positive stools Pseudomonas HCAP/Acute hypoxic respiratory failure/end stage COPD * Currently saturating 93% on 7L via nasal cannula, taper O2 as tolerated * leukcocytosis trending down, most likely secondary to IV steroids. * Continue with ceftazidime for Pseudomonas in sputum culture, Patient recalls that she had anaphylaxis which included difficulty breathing and swelling of her her face with the newer antibiotics * Respiratory culture neg for MRSA, will dc vanco per ID recomendations * On PO prednisone. * Continue mucolytics with acappella therapy, Mucinex 600 mg Q12. If concern for mucous plugging consider N-acetylcysteine * At this time no plan to continue with bronchoscopy in the setting of high risk for intubation Atrial fibrillation * guaic positive stool. Continue on Eliquis, Diltiazem and Aspirin Depression and anxiety * Continue Ativan and Lexapro DVT prophylaxis with Eliquis Heart healthy diet DNR/DNI Problem List: 1. Pseudomonas pneumonia 2. Healthcare associated bacterial pneumonia Pain Ratin Pain Location: na Pain Goal: Pain 4 or less Pain Plan: current regimen Tomorrow's Labs & Rationales: none required Consulting Request: Consulting Specialty: Pulmonary Disease
--- NOTE | 2017-02-21 08:07 | PN- Pulmonary ---
Subjective HPI/Critical Care Issues: Continues to be weak and unable to stand. Respiratory status is slowly improving with improved saturations. Objective Current Medications: Current Medications Sig/Kirill Start time Last Medication Dose Route Stop Time Status Admin Albuterol Sulfate 3 ML EVERY 4 HRS/AWAKE 02/15 2000 AC 02/21 INH 0015 Albuterol Sulfate 2 PUF Q4P PRN 02/15 1030 AC INH Apixaban 2.5 MG BID 02/14 2200 AC 02/20 PO 2111 Atorvastatin Calcium 80 MG 1700 02/14 1700 AC 02/20 PO 1738 Budesonide/ 2 PUF BID 02/15 1045 AC 02/20 Formoterol Fumarate INH 2117 Ceftazidime 1,000 MG Q12H 02/15 0800 AC 02/20 IV 2107 Diltiazem HCl 90 MG DAILY 02/14 1149 AC 02/20 PO 1115 Escitalopram Oxalate 10 MG DAILY 02/15 1000 AC 02/20 PO 1113 Glycerin 2 SPRAY Q2P PRN 02/14 1200 AC PO Guaifenesin 600 MG Q12 02/14 2200 AC 02/20 PO 2111 Lorazepam 0.125 MG BID PRN 02/17 1753 AC 02/20 PO 02/24 1752 2125 Melatonin 10 MG AT BEDTIME 02/14 2200 AC 02/21 PO 0033 Methylprednisolone 40 MG Q12 02/17 2200 DC 02/20 IV 1113 Ondansetron HCl 4 MG ONCE ONE 02/20 1845 DC 02/20 PO 02/20 1846 1856 Prednisone 60 MG DAILY 02/21 1000 AC PO Sodium Chloride 2 SPRAY Q4P PRN 02/15 1215 AC 02/15 MERLE 2239 Sodium Chloride 1,000 ML SEE RATE 02/14 1100 AC 02/15 IV 0144 Tiotropium [place] 1 PUF DAILY 02/16 1000 AC 02/20 INH 1410 Vital Signs & I&O Last 24 Hrs of Vitals and I&O: Vital Signs Date Time Temp Pulse Resp B/P B/P Pulse O2 O2 Flow FiO2 Mean Ox Delivery Rate 02/21 0634 97.1 83 20 118/60 98 Nasal 7.0L Cannula 02/21 0028 97 Nasal 7.0L Cannula 02/21 0000 Nasal 7.0L Cannula 02/20 2214 97.5 94 20 128/66 91 Nasal 7.0L Cannula 02/20 1645 93 Nasal 7.0L Cannula 02/20 1600 93 Nasal 7.0L Cannula 02/20 1409 98.0 97 20 124/62 92 02/20 1115 97.5 97 22 120/70 02/20 0845 93 Nasal 7.0L Cannula Intake & Output 02/21 1600 02/21 0800 02/21 0000 Intake Total 360 260 Output Total 200 Balance 360 60 Intake, IV 20 Intake, Oral 360 240 Output, Urine 200 Oxygen saturation 7 L 98% exam for chest shows diminished breath sounds there are no wheezes rhonchi cardiac exam shows normal S1 and S2 without murmurs Impression/Plan Impression/Plan Impression/Plan: 37-year-old history of severe oxygen-dependent COPD lung cancer admitted with probable aspiration pneumonia culture positive with Pseudomonas gram-negative pneumonia. Acute on chronic hypoxic respiratory failure is improving. Recommendations: Taper FiO2. Physical therapy. Aspiration precautions. Complete course of antibiotics per infectious disease Slowly taper prednisone. Anticipate discharge next 24-48 hours
--- NOTE | 2017-02-21 13:16 | PN- Att Addend ---
Attending Addendum Attending Brief Note patient sitting in bed oxygen on, eating yogurt and soup still not out of bed will try later on Patient is afebrile moving air but a little wheezy. To continue treatment as per consultants recomendations get OOB. Current Medications Sig/Kirill Start time Last Medication Dose Route Stop Time Status Admin Albuterol Sulfate 3 ML EVERY 4 HRS/AWAKE 02/15 2000 AC 02/21 INH 1252 Albuterol Sulfate 2 PUF Q4P PRN 02/15 1030 AC INH Apixaban 2.5 MG BID 02/14 2200 AC 02/21 PO 1102 Atorvastatin Calcium 80 MG 1700 02/14 1700 AC 02/20 PO 1738 Budesonide/ 2 PUF BID 02/15 1045 AC 02/21 Formoterol Fumarate INH 1059 Ceftazidime 1,000 MG Q12H 02/15 0800 AC 02/21 IV 0830 Diltiazem HCl 90 MG DAILY 02/14 1149 AC 02/21 PO 1101 Escitalopram Oxalate 10 MG DAILY 02/15 1000 AC 02/20 PO 1113 Glycerin 2 SPRAY Q2P PRN 02/14 1200 AC PO Guaifenesin 600 MG Q12 02/14 2200 AC 02/21 PO 1102 Lorazepam 0.125 MG BID PRN 02/17 1753 AC 02/20 PO 02/24 175 2125 Melatonin 10 MG AT BEDTIME 02/14 2200 AC 02/21 PO 0033 Methylprednisolone 40 MG Q12 02/17 2200 DC 02/20 IV 1113 Ondansetron HCl 4 MG ONCE ONE 02/20 1845 DC 02/20 PO 02/20 1846 1856 Prednisone 60 MG DAILY 02/21 1000 AC 02/21 PO 1055 Sodium Chloride 2 SPRAY Q4P PRN 02/15 1215 AC 02/15 MERLE 2239 Sodium Chloride 1,000 ML SEE RATE 02/14 1100 AC 02/15 IV 0144 Tiotropium [place] 1 PUF DAILY 02/16 1000 AC 02/21 INH 1056 Vital Signs Date Time Temp Pulse Resp B/P B/P Pulse O2 O2 Flow FiO2 Mean Ox Delivery Rate 02/21 1101 82 130/78 02/21 0818 90 Nasal 7.0L Cannula 02/21 0634 97.1 83 20 118/60 98 Nasal 7.0L Cannula
--- NOTE | 2017-02-21 14:38 | Discharge Summary ---
Visit Information Visit Dates Admission Date: 02/16/17 Discharge Date: 02/24/17 Hospital Course Course Attending Physician: CHI LEY MD Primary Care Physician: CHI LEY MD Consulting Request: Consulting Specialty: Pulmonary Disease Hospital Course: 76-year-old woman from [place] with a past medical history of COPD on 1.5-2 L of oxygen at home, atrial fibrillation on Eliquis, left lung cancer status post radiation in September 2015, anxiety, depression, osteoporosis, recently admitted to [facility] on 01/31/17 episode of syncope BIBA for episode of desaturation at the [facility]. Vitals at the time of admission blood pressure 100/74, respiratory rate of 24, tachycardic to 110, afebrile saturating 91% on 3 L of oxygen via nasal cannula. Labs were pertinent for leukocytosis with a white blood cell count 33,200, H&H of 13.8/42.5, normal platelet count of 400,000. Serum chemistries revealed a sodium of 143, potassium of 4.0, bicarbonate of 34, anion gap of 10, BUN 27 with a creatinine of 0.5. Serum glucose elevated to 168. proBNP of 168. CXR pertinant for increasing consolidation in the medial aspect of the right lung base, concerning for pneumonia. ED course: Was started on BiPAP for work of breathing was given Solu-Medrol IV 25 mg and IV cefoxitin Admitted to General medicine floor and the following issues. Acute hypoxic respiratory failure/end stage COPD She continued to required 7L of oxygen and intermittent Hi flow oxgen and was unable to tolerate oxygen taper. Pseudomonas HCAP Continued on IV ceftazidime, initially on IV steroids later switched to PO prednisone. On mucolytics with acappella therapy, Mucinex 600 mg Q12. There was no plan to continue with bronchoscopy in the setting of high risk for intubation.On February 24 she became hypothermic and hypotensive and was transferred to ICU for rewarming and BIPAP. After discussion with son decision was made to transfer her to hospice care. Atrial fibrillation Continued on Eliquis, Diltiazem and aspirin Depression and anxiety Continue Ativan and Lexapro DVT prophylaxis with Eliquis Heart healthy diet CODE STATUS: Discussed ventilation as well as CPR with the patient, she indicated that she did not wish any aggressive measures and did not want to be intubated or resuscitated. DNR/DNI Complications: respiratory failure Allergies: Coded Allergies: levofloxacin (Mild, LEGS FELT TIGHT 12/17/16) amoxicillin (ANAPHYLAXIS 12/17/16) clarithromycin (UNKNOWN - PT DOESNT REMEMBER WAS TOLD BY MD NOT TO TAKE 12/17/16 ) doxycycline (GI UPSET 12/28/16) Disposition Summary Disposition Principal Diagnosis: acute hypoxic respiratory failure Additional Diagnosis: pseudomonas pneumonia Lung cancer atrial fibrillation Discharge Disposition: hospice - medical facilit Discharge Instructions General Discharge Information Code Status: Hospice Patient's Diet: As tolerated Patient's Activity: As tolerated Follow-Up Instructions/Appts: Follow-up with primary care doctor Medications at Discharge Discharge Medications: Stop taking the following medications: Fluticasone/Salmeterol (Advair 250-50 Diskus) 1 EACH BLST.W.DEV Inhale through mouth TWICE DAILY Tiotropium [place] (Spiriva) 18 MCG CAP.W.DEV Inhale through mouth DAILY Albuterol Sulfate (Albuterol Sulfate) 0.63 MG/3 ML VIAL.NEB Inhale Solution THREE TIMES DAILY Albuterol Sulfate (Proair Respiclick) 90 MCG AER.POW.BA Inhale through mouth EVERY 4-6 HOURS as needed for COPD Qty = 1 Apixaban (Eliquis) 2.5 MG TABLET ORAL TWICE DAILY Qty = 180 Diltiazem HCl (Diltiazem 12HR ER) 90 MG CAP.ER.12H ORAL DAILY Furosemide (Lasix) 20 MG TABLET ORAL DAILY Qty = 90 Atorvastatin Calcium (Atorvastatin Calcium) 80 MG TABLET ORAL 5 PM Qty = 60 Aspirin (Aspirin*) 81 MG TAB.CHEW ORAL DAILY Qty = 90 Loratadine (Loratadine) 10 MG TABLET ORAL DAILY Qty = 60 Guaifenesin (Guaifenesin ER) 600 MG TAB.ER.12H ORAL EVERY 12 HOURS Qty = 90 Melatonin (Melatonin) 5 MG TABLET ORAL AT BEDTIME Qty = 90 Saliva Substitute Combo No.9 (Biotene) 473 ML MOUTHWASH ORAL EVERY 2 HOURS NEEDED as needed for DRY MOUTH Qty = 90 Lorazepam (Ativan) 0.5 MG TABLET ORAL TWICE DAILY as needed for ANXIETY/INSOMNIA Qty = 90 Levalbuterol HCl (Xopenex) 1.25 MG/3 ML VIAL.NEB Inhale through mouth THREE TIMES DAILY Levalbuterol HCl (Xopenex) 1.25 MG/3 ML VIAL.NEB Inhale through mouth EVERY 4 HOURS NEEDED as needed for SHORTNESS OF BREATH Budesonide (Pulmicort) 0.5 MG/2 ML AMPUL.NEB Inhale Solution TWICE DAILY Escitalopram Oxalate (Lexapro) 10 MG TABLET ORAL DAILY Prednisone (Prednisone) 20 MG TABLET ORAL DAILY Copies To: CHI LEY MD Attending MD Review Statement Documenting Attending: CHI LEY MD
[2017-02-21 14:44] VITALS: BP 134/76
[2017-02-21 22:32] VITALS: BP 130/77
[2017-02-22 06:53] VITALS: BP 140/80
--- NOTE | 2017-02-22 07:22 | PN- Housestaff ---
Subjective Follow-up For: Pseudomonas pneumonia Hypoxic respiratory failure Guaiac positive stools Subjective: Seen and examined patient, continues to be dyspneic at rest. States that she her lung feels "chunky" and endorses generalized weakness and is unable to stand. Denies chest pain, abdominal pain. Approach goals of care with patient this morning she wished to have more information regarding home hospice care. Review of Systems Constitutional: Reports: malaise, weakness. Denies: chills, diaphoresis, fever, unexplained weight loss. Cardiovascular: Denies: chest pain, edema, orthopena, palpitations, peripheral edema, syncope. Respiratory: Reports: cough, short of breath. Denies: hemoptysis, orthopnea, sputum production, stridor, wheezing. Gastrointestinal: Denies: abdominal pain, bloating, constipation, diarrhea, distention, bowel incontinence, melena, nausea, bloody stool, changes in stool, vomiting, steatorrhea. Genitourinary: Denies: discharge, dysuria, frequency, hematuria, hesitation, nocturia, pain, urgency. Objective Last 24 Hrs of Vital Signs/I&O Vital Signs Date Time Temp Pulse Resp B/P B/P Pulse O2 O2 Flow FiO2 Mean Ox Delivery Rate 02/22 0653 98.1 86 21 140/80 99 Nasal 7.0L Cannula 02/22 0213 95 Nasal 7.0L Cannula 02/22 0000 95 Nasal 7.0L Cannula 02/21 2232 98.5 93 22 130/77 91 Nasal Cannula 02/22 2000 92 Nasal 7.0L Cannula 02/21 1600 Nasal 7.0L Cannula 02/21 1511 Nasal 6.0L Cannula 02/21 1444 97.5 111 22 134/76 90 02/21 1101 82 130/78 02/21 0818 90 Nasal 7.0L Cannula 02/21 0800 96 Nasal 7.0L Cannula Intake & Output 02/22 0800 02/22 0000 02/21 1600 Intake Total Output Total 450 Balance -450 Output, Urine 450 Physical Exam General Appearance: Alert, Oriented X3, Moderate Distress Cardiovascular: Regular Rate, Normal S1, Normal S2 Lungs: b/l decreased breath sounds and coarse rhonchi Current Medications: Current Medications Sig/Kirill Start time Last Medication Dose Route Stop Time Status Admin Albuterol Sulfate 3 ML EVERY 4 HRS/AWAKE 02/16 2000 AC 02/22 INH 0825 Albuterol Sulfate 2 PUF Q4P PRN 02/15 1030 AC INH Apixaban 2.5 MG BID 02/14 2200 AC 02/21 PO 2007 Atorvastatin Calcium 80 MG 1700 02/14 1700 AC 02/21 PO 1605 Budesonide/ 2 PUF BID 02/15 1045 AC 02/21 Formoterol Fumarate INH 2007 Ceftazidime 1,000 MG Q12H 02/15 0800 AC 02/21 IV 2005 Diltiazem HCl 90 MG DAILY 02/14 1149 AC 02/21 PO 1101 Escitalopram Oxalate 10 MG DAILY 02/15 1000 AC 02/20 PO 1113 Glycerin 2 SPRAY Q2P PRN 02/14 1200 AC PO Guaifenesin 600 MG Q12 02/14 2200 AC 02/21 PO 2007 Lorazepam 0.125 MG BID PRN 02/17 1753 AC 02/21 PO 02/24 1752 2222 Melatonin 10 MG AT BEDTIME 02/14 2200 AC 02/21 PO 2222 Ondansetron HCl 4 MG ONCE ONE 02/21 1445 DC 02/21 PO 02/21 1446 2005 Prednisone 60 MG DAILY 02/21 1000 AC 02/21 PO 02/23 1000 1055 Sodium Chloride 2 SPRAY Q4P PRN 02/15 1215 AC 02/15 MERLE 2239 Sodium Chloride 1,000 ML SEE RATE 02/14 1100 AC 02/15 IV 0144 Tiotropium [place] 1 PUF DAILY 02/16 1000 AC 02/21 INH 1056 Assessment/Plan Assessment: 76-year-old woman from [place] with a past medical history of COPD on 1.5-2 L of oxygen at home, atrial fibrillation on Eliquis, left lung cancer status post radiation in September 2015, anxiety, depression, osteoporosis, recently admitted to [facility] on 01/31/17 episode of syncope BIBA for episode of desaturation at the ECF. CXR pertinant for increasing consolidation in the medial aspect of the right lung base,concerning for pneumonia. CT chest without contrast significant for endotracheal debris/mucus, extensive filling defects seen in the lobar and segmental airways of both lower lobes with complete occlusion of the medial and posterior basal segmental airways leading to dense parenchymal consolidation in both lower lobes. Problem list: 1. Pseudomonas healthcare acquired pneumonia 2. Acute hypoxic respiratory failure 3. Guaic positive stools Pseudomonas HCAP/Acute hypoxic respiratory failure/end stage COPD * Currently saturating 88% on 7L via nasal cannula * leukcocytosis trending down, most likely secondary to IV steroids. * Continue with ceftazidime day 8/10 * On PO prednisone, will continue with slow taper. * Continue mucolytics with acappella therapy, Mucinex 600 mg Q12. If concern for mucous plugging consider N-acetylcysteine * At this time no plan to continue with bronchoscopy in the setting of high risk for intubation Atrial fibrillation * guaic positive stool. Continue on Eliquis, Diltiazem and Aspirin Depression and anxiety * Continue Ativan and Lexapro There will be a meeting today with case management regarding her disposition. Plan is to have hospice service present there to answer any question patient or her son might have. DVT prophylaxis with Eliquis Heart healthy diet DNR/DNI Problem List: 1. Pseudomonas pneumonia 2. Healthcare associated bacterial pneumonia Pain Ratin Pain Location: na Pain Goal: Pain 4 or less Pain Plan: current regimen Tomorrow's Labs & Rationales: none required Consulting Request: Consulting Specialty: Pulmonary Disease
--- NOTE | 2017-02-22 08:25 | PN- Pulmonary ---
Subjective HPI/Critical Care Issues: Patient remains weak but was able to get out of bed for 3 hours and participate with physical therapy. Oxygen saturations improved. Objective Current Medications: Current Medications Sig/Kirill Start time Last Medication Dose Route Stop Time Status Admin Albuterol Sulfate 3 ML EVERY 4 HRS/AWAKE 02/15 2000 AC 02/22 INH 0203 Albuterol Sulfate 2 PUF Q4P PRN 02/15 1030 AC INH Apixaban 2.5 MG BID 02/14 2200 AC 02/21 PO 2007 Atorvastatin Calcium 80 MG 1700 02/14 1700 AC 02/21 PO 1605 Budesonide/ 2 PUF BID 02/15 1045 AC 02/21 Formoterol Fumarate INH 2007 Ceftazidime 1,000 MG Q12H 02/15 0800 AC 02/21 IV 2005 Diltiazem HCl 90 MG DAILY 02/14 1149 AC 02/21 PO 1101 Escitalopram Oxalate 10 MG DAILY 02/15 1000 AC 02/20 PO 1113 Glycerin 2 SPRAY Q2P PRN 02/14 1200 AC PO Guaifenesin 600 MG Q12 02/14 2200 AC 02/21 PO 2007 Lorazepam 0.125 MG BID PRN 02/17 1753 AC 02/21 PO 02/24 1752 2222 Melatonin 10 MG AT BEDTIME 02/14 2200 AC 02/21 PO 2222 Ondansetron HCl 4 MG ONCE ONE 02/21 1445 DC 02/21 PO 02/21 1446 2005 Prednisone 60 MG DAILY 02/21 1000 AC 02/21 PO 02/23 1000 1055 Sodium Chloride 2 SPRAY Q4P PRN 02/15 1215 AC 02/15 MERLE 2239 Sodium Chloride 1,000 ML SEE RATE 02/14 1100 AC 02/15 IV 0144 Tiotropium [place] 1 PUF DAILY 02/16 1000 AC 02/21 INH 1056 Vital Signs & I&O Last 24 Hrs of Vitals and I&O: Vital Signs Date Time Temp Pulse Resp B/P B/P Pulse O2 O2 Flow FiO2 Mean Ox Delivery Rate 02/22 0653 98.1 86 21 140/80 99 Nasal 7.0L Cannula 02/22 0213 95 Nasal 7.0L Cannula 02/22 0000 95 Nasal 7.0L Cannula 02/22 2232 98.5 93 22 130/77 91 Nasal Cannula 02/21 2000 92 Nasal 7.0L Cannula 02/21 1600 Nasal 7.0L Cannula 02/21 1511 Nasal 6.0L Cannula 02/21 1444 97.5 111 22 134/76 90 02/21 1101 82 130/78 Intake & Output 02/22 1600 02/22 0800 02/22 0000 Intake Total Output Total 450 Balance -450 Output, Urine 450 And saturation on 7 L 99% of her chest shows occasional rhonchi cardiac exam shows regular S1 and S2 without murmurs Impression/Plan Impression/Plan Impression/Plan: 37-year-old history of severe oxygen-dependent COPD lung cancer admitted with probable aspiration pneumonia culture positive with Pseudomonas gram-negative pneumonia. Acute on chronic hypoxic respiratory failure is improving. Recommendations: Taper FiO2. Physical therapy. Aspiration precautions. Complete course of antibiotics per infectious disease Slowly taper prednisone. Anticipate discharge next 24-48 hours hopefully to short-term rehabilitation to continue physical therapy. Patient is motivated to hopefully be able to walk again.
--- NOTE | 2017-02-22 09:20 | NUR ---
0730 PT DNV ALL NIGHT.BLADDER SCANNED FOR >444ML.PT ON BEDPAN & VOIDED 200ML DARK GRACIELA URINE.REPORTED TO DAY NURSE.
--- NOTE | 2017-02-22 11:18 | PN- Att Addend ---
Attending Addendum Attending Brief Note Seen and examined patient, continues to be dyspneic at rest Review of Systems Constitutional: Reports: malaise, weakness. Denies: chills, diaphoresis, fever, unexplained weight loss. Cardiovascular: Denies: chest pain, edema, orthopena, palpitations, peripheral edema, syncope. Respiratory: Reports: cough, short of breath. Denies: hemoptysis, orthopnea, sputum production, stridor, wheezing. Gastrointestinal: Denies: abdominal pain, bloating, constipation, diarrhea, distention, bowel incontinence, melena, nausea, bloody stool, changes in stool, vomiting, steatorrhea. Genitourinary: Denies: discharge, dysuria, frequency, hematuria, hesitation, nocturia, pain, urgencyVital Signs Date Time Temp Pulse Resp B/P B/P Pulse O2 O2 Flow FiO2 Mean Ox Delivery Rate 02/22 1009 70 112/70 02/22 0826 88 Nasal 7.0L Cannula 02/22 0653 98.1 86 21 140/80 99 Nasal 7.0L Cannula 02/22 0213 95 Nasal 7.0L Cannula 02/22 0000 95 Nasal 7.0L Cannula 02/21 2232 98.5 93 22 130/77 91 Nasal Cannula 02/21 2000 92 Nasal 7.0L Cannula 02/21 1600 Nasal 7.0L Cannula 02/21 1511 Nasal 6.0L Cannula 02/21 1444 97.5 111 22 134/76 90 Physical Exam General Appearance: Alert, Oriented X3, Moderate Distress Cardiovascular: Regular Rate, Normal S1, Normal S2 Lungs: b/l decreased breath sounds and coarse rhonchi IMPRESSION ENd stage copd with history of lung cancer with pseudomonas bronchopna Chronic resp faiure Failure to thrive REC cont abx taper fio2 asp precautions PT to cont Dispo per Carmen See (back in am ) and Diana
--- NOTE | 2017-02-22 12:34 | Patient Discharge Instructions ---
Discharge Instructions General Discharge Information You were seen/treated for: 1. Pseudomonas healthcare acquired pneumonia, aspiration PNA 2. Acute hypoxic respiratory failure 3. Guaic positive stools Diet Continue normal diet: No Recommended Diet: NPO, can have ice chips Activity Full Activity/No Limits: No Activity Self Limited: Yes Acute Coronary Syndrome Inclusion Criteria At DC or during hospital stay patient has or had the following: ACS DIAGNOSIS No Discharge Core Measures Meds if any: Prescribed or Continued at Discharge Meds if any: NOT Prescribed or Continued at Discharge Congestive Heart Failure Inclusion Criteria At DC or during hospital stay patient has or had the following: CHF DIAGNOSIS No Discharge Core Measures Meds if any: Prescribed or Continued at Discharge Meds if any: NOT Prescribed or Continued at Discharge Cerebrovascular accident Inclusion Criteria At DC or during hospital stay patient has or had the following: CVA/TIA Diagnosis No Discharge Core Measures Meds if any: Prescribed or Continued at Discharge Meds if any: NOT Prescribed or Continued at Discharge Venous thromboembolism Inclusion Criteria VTE Diagnosis No VTE Type NONE VTE Confirmed by (Test) NONE Discharge Core Measures - Per Current guidelines, there needs to be overlap - treatment for the first 5 days of Warfarin therapy. - If discharged on Warfarin prior to 5 days of - overlap therapy, the patient will need to be - assessed for post discharge needs including - *Post discharge parental anticoagulation - *Warfarin and/or parental anticoagulation education - *Follow up date to check INR post discharge At least 5 days overlap therapy as Inpatient No Meds if any: Prescribed or Continued at Discharge Note: Overlap Therapy is Warfarin and Anticoagulant Meds if any: NOT Prescribed or Continued at Discharge
[2017-02-22 13:54] VITALS: BP 130/70
--- NOTE | 2017-02-22 15:54 | PN- Infect Dx ---
Subjective Subjective: Afebrile on steroids. She reports increased shortness of breath today. She reports some right-sided chest pain but denies any cough. Objective Last 24 Hrs of Vital Signs/I&O Vital Signs Date Time Temp Pulse Resp B/P B/P Pulse O2 O2 Flow FiO2 Mean Ox Delivery Rate 02/22 1354 98.2 86 18 130/70 99 Nasal Cannula 02/22 1009 70 112/70 02/22 0826 88 Nasal 7.0L Cannula 02/22 0653 98.1 86 21 140/80 99 Nasal 7.0L Cannula 02/22 0213 95 Nasal 7.0L Cannula 02/22 0000 95 Nasal 7.0L Cannula 02/21 2232 98.5 93 22 130/77 91 Nasal Cannula 02/21 2000 92 Nasal 7.0L Cannula 02/21 1600 Nasal 7.0L Cannula Intake & Output 02/22 1600 02/22 0800 02/22 0000 Intake Total 0 Output Total 200 450 Balance -200 -450 Intake, IV 0 Intake, Oral 0 Number 0 Bowel Movements Output, Urine 200 450 Physical Exam Other Physical Findings: She appears chronically ill but in no acute distress Lungs bilateral rhonchi Heart regular rhythm with no murmur Extremities no cyanosis, clubbing or edema Results Last 24 Hours of Lab Results: No labs from today Last 24 Hours of Mannie Results: No recent cultures Assessment/Plan Impression: Stable on Ceftazidime Day 7 of treatment for a postobstructive pneumonia secondary to Pseudomonas, with a CT of the chest revealing endobronchial occlusion of the posterior and medial basal segmental airways and resultant postobstructive dense consolidation in both lower lobes. She remains afebrile with a persistent leukocytosis likely secondary to steroids. She reports an anaphylactic reaction to an antibiotic during her hospitalization in August. The records were reviewed from that hospitalization and there is no record of any anaphylactic reaction reported. Have spoken with her son who is not aware of her having any anaphylactic reaction to any antibiotic; therefore feel that she could be given a quinolone with close observation during its administration. Suggestion: 1. Continue Ceftazidime, but would change to Ciprofloxacin 500 mg po every 12 hours upon discharge to complete a 10-14 day course of treatment
--- NOTE | 2017-02-22 15:59 | NUR ---
NURSING NOTE: UPON ASSESSMENT, PATIENT COMPLAINS OF CONTINUED NAUSEA AND ABD DISCOMFORT. RESIDENT YEYO PAGED AT [facility] #[phone], SHE WILL ORDER SOMETHING ELSE FOR NAUSEA. WILL CONTINUE TO MONITOR PATIENT
[2017-02-22 20:14] VITALS: BP 144/86
--- NOTE | 2017-02-22 20:31 | NUR ---
NURSING NOTE: UPON ENTERING PATIENTS ROOM AT 2000 TO ADMINISTER SCHEDULED ANTIBIOTIC, PATIENT REPORTED INCREASED DIFFICULTY BREATHING, PATIENT REPOSITIONED WITH A PILLOW WITH TEMPORARY RELIEF. WHILE ASSESSING THIS PATIENT, IT WAS NOTED THAT THERE WAS INCREASED SWELLING IN HER LEFT ARM, BILATERAL ANKLE SWELLING AND CYANOSIS TO LIPS AND FINGERTIPS. PATIENT ALSO COMPLAINS OF R/L UPPER QUADRANT PAIN, BOWEL SOUNDS ARE HYPOACTIVE UPON AUSCULTATION. VITALS OBTAINED. BP: 144/86, P:106, RR:26 O2:84 % ON NC 5L. CAT BREEDER DAVID MARTÍNEZ #[id number], AND RESIDENT ISHAAN #[id number] PAGED AND FOUND TO BE ON THE FLOOR. THESE FINDINGS WERE REPORTED AND THIS RN WAS GIVEN DIRECTION TO INCREASE NC TO 7L. RESPIRATORY WAS ALSO PAGED TO ADMINISTER BREATHING TREATMENT.
[2017-02-22 22:29] VITALS: BP 98/70
[2017-02-23 06:59] VITALS: BP 100/70
--- NOTE | 2017-02-23 07:29 | PN- Housestaff ---
Subjective Follow-up For: Pseudomonas pneumonia Hypoxic respiratory failure Guaiac positive stools Subjective: Seen and examined patient, breathing is worse today. does not complain of abdominal pain today. Review of Systems Constitutional: Reports: malaise, weakness. Denies: fever. Cardiovascular: Denies: chest pain, edema, orthopena, palpitations, peripheral edema, syncope. Respiratory: Reports: short of breath, wheezing. Denies: cough, hemoptysis, orthopnea, sputum production, stridor. Gastrointestinal: Denies: abdominal pain, bloating, constipation, diarrhea, distention, bowel incontinence, melena, nausea, bloody stool, changes in stool, vomiting, steatorrhea. Genitourinary: Denies: discharge, dysuria, frequency, hematuria, hesitation, nocturia, pain, urgency. Objective Last 24 Hrs of Vital Signs/I&O Vital Signs Date Time Temp Pulse Resp B/P B/P Pulse O2 O2 Flow FiO2 Mean Ox Delivery Rate 02/23 1051 99 Nasal Cannula 02/23 0912 92 22 110/70 02/23 0659 97.9 87 20 100/70 96 Nasal 5.0L Cannula 02/23 0021 90 Nasal 7.0L Cannula 02/23 0000 97 Nasal 7.0L Cannula 02/22 2229 97.9 92 20 98/70 97 Nasal Cannula 02/22 2030 26 98 Nasal 7.0L Cannula 02/22 2014 98.5 106 26 144/86 84 Nasal 5.0L Cannula 02/22 1710 97 Nasal 6.0L Cannula 02/22 1600 Nasal 6.0L Cannula 02/22 1354 98.2 86 18 130/70 99 Nasal Cannula Intake & Output 02/23 1600 02/23 0800 02/23 0000 Intake Total 0 200 Output Total 350 Balance -350 200 Intake, IV 0 80 Intake, Oral 0 120 Number 0 Bowel Movements Output, Urine 350 Physical Exam General Appearance: Alert, Oriented X3, Moderate Distress Cardiovascular: Regular Rate, Normal S1, Normal S2 Lungs: b/l diminished breath sounds, coarse b/l rhonchi Abdomen: Soft, No Tenderness Current Medications: Current Medications Sig/Kirill Start time Last Medication Dose Route Stop Time Status Admin Acetaminophen 650 MG .STK-MED ONE 02/23 0019 DC PO 02/23 0020 Acetaminophen 1,000 MG ONCE ONE 02/22 1300 DC 02/22 N/A 1 UNIT IV 02/22 1314 1305 Acetaminophen 650 MG Q4P PRN 02/22 0945 AC 02/23 PO 0015 Albuterol Sulfate 3 ML EVERY 4 HRS/AWAKE 02/15 2000 AC 02/23 INH 1221 Albuterol Sulfate 2 PUF Q4P PRN 02/15 1030 AC INH Apixaban 2.5 MG BID 02/14 2200 AC 02/23 PO 0832 Atorvastatin Calcium 80 MG 1700 02/14 1700 AC 02/22 PO 1645 Budesonide/ 2 PUF BID 02/15 1045 AC 02/23 Formoterol Fumarate INH 0840 Ceftazidime 1,000 MG Q12H 02/15 0800 AC 02/23 IV 0831 Diltiazem HCl 90 MG DAILY 02/14 1149 AC 02/23 PO 0912 Escitalopram Oxalate 10 MG DAILY 02/15 1000 AC 02/23 PO 0834 Glycerin 2 SPRAY Q2P PRN 02/14 1200 AC PO Guaifenesin 600 MG Q12 02/14 2200 AC 02/23 PO 0832 Lorazepam 0.125 MG BID PRN 02/17 1753 AC 02/23 PO 02/24 1752 0912 Melatonin 10 MG AT BEDTIME 02/14 2200 AC 02/22 PO 2130 Omeprazole 40 MG DAILY AC 02/23 0024 AC 02/23 PO 0831 Ondansetron HCl 4 MG ONCE ONE 02/22 1300 DC 02/22 IV 02/22 1301 1304 Polyethylene Glycol 17 GM DAILY 02/22 1933 AC 02/23 PO 0834 Prednisone 50 MG DAILY 02/24 1000 AC PO 02/26 1000 Prednisone 60 MG DAILY 02/21 1000 DC 02/22 PO 02/23 1000 1008 Promethazine HCl 12.5 MG Q6P PRN 02/22 1715 AC IV 03/01 1659 Promethazine HCl 12.5 MG ONCE ONE 02/22 1615 DC 02/22 IV 02/22 1616 1647 Sodium Chloride 2 SPRAY Q4P PRN 02/15 1215 AC 02/15 MERLE 2239 Sodium Chloride 1,000 ML SEE RATE 02/14 1100 AC 02/15 IV 0144 Tiotropium [place] 1 PUF DAILY 02/16 1000 AC 02/22 INH 1008 Assessment/Plan Assessment: 76-year-old woman from [place] with a past medical history of COPD on 1.5-2 L of oxygen at home, atrial fibrillation on Eliquis, left lung cancer status post radiation in September 2015, anxiety, depression, osteoporosis, recently admitted to [facility] on 01/31/17 episode of syncope BIBA for episode of desaturation at the ECF. CXR pertinant for increasing consolidation in the medial aspect of the right lung base,concerning for pneumonia. CT chest without contrast significant for endotracheal debris/mucus, extensive filling defects seen in the lobar and segmental airways of both lower lobes with complete occlusion of the medial and posterior basal segmental airways leading to dense parenchymal consolidation in both lower lobes. Problem list: 1. Pseudomonas healthcare acquired pneumonia 2. Acute hypoxic respiratory failure 3. Guaic positive stools Pseudomonas HCAP/Acute hypoxic respiratory failure/end stage COPD * Continue with ceftazidime day 9 * On PO prednisone, will continue with slow taper. * Continue mucolytics with acappella therapy, Mucinex 600 mg Q12. If concern for mucous plugging consider N-acetylcysteine * At this time no plan to continue with bronchoscopy in the setting of high risk for intubation Atrial fibrillation * guaic positive stool. Continue on Eliquis, Diltiazem and Aspirin Depression and anxiety * Continue Ativan and Lexapro DVT prophylaxis with Eliquis Heart healthy diet DNR/DNI Problem List: 1. Pseudomonas pneumonia 2. Acute exacerbation of chronic obstructive pulmonary disease (COPD) 3. Atrial fibrillation 4. Leukocytosis 5. Moderate malnutrition Pain Ratin Pain Location: na Pain Goal: Pain 4 or less Pain Plan: current regimen Tomorrow's Labs & Rationales: none required Consulting Request: Consulting Specialty: Pulmonary Disease
--- NOTE | 2017-02-23 08:14 | PN- Pulmonary ---
Subjective HPI/Critical Care Issues: Patient remains weak. Respiratory status continues to be marginal oxygen requirements have decreased to 5 L. Objective Current Medications: Current Medications Sig/Kirill Start time Last Medication Dose Route Stop Time Status Admin Acetaminophen 1,000 MG ONCE ONE 02/22 1300 DC 02/22 N/A 1 UNIT IV 02/22 1314 1305 Acetaminophen 650 MG Q4P PRN 02/22 0945 AC 02/23 PO 0015 Albuterol Sulfate 3 ML EVERY 4 HRS/AWAKE 02/15 2000 AC 02/23 INH 0628 Albuterol Sulfate 2 PUF Q4P PRN 02/15 1030 AC INH Apixaban 2.5 MG BID 02/14 2200 AC 02/22 PO 2129 Atorvastatin Calcium 80 MG 1700 02/14 1700 AC 02/22 PO 1645 Budesonide/ 2 PUF BID 02/15 1045 AC 02/22 Formoterol Fumarate INH 2132 Ceftazidime 1,000 MG Q12H 02/15 0800 AC 02/22 IV 1956 Diltiazem HCl 90 MG DAILY 02/14 1149 AC 02/22 PO 1009 Escitalopram Oxalate 10 MG DAILY 02/15 1000 AC 02/20 PO 1113 Glycerin 2 SPRAY Q2P PRN 02/14 1200 AC PO Guaifenesin 600 MG Q12 02/14 2200 AC 02/22 PO 2131 Lorazepam 0.125 MG BID PRN 02/17 1753 AC 02/22 PO 02/24 175 2129 Melatonin 10 MG AT BEDTIME 02/14 2200 AC 02/22 PO 2130 Omeprazole 40 MG DAILY AC 02/23 0024 AC 02/23 PO 0028 Ondansetron HCl 4 MG ONCE ONE 02/22 1300 DC 02/22 IV 02/22 1301 1304 Polyethylene Glycol 17 GM DAILY 02/22 1933 AC PO Prednisone 50 MG DAILY 02/24 1000 AC PO 02/26 1000 Prednisone 60 MG DAILY 02/21 1000 AC 02/22 PO 02/23 1000 1008 Promethazine HCl 12.5 MG Q6P PRN 02/22 1715 AC IV 03/01 1659 Promethazine HCl 12.5 MG ONCE ONE 02/22 1615 DC 02/22 IV 02/22 1616 1647 Sodium Chloride 2 SPRAY Q4P PRN 02/15 1215 AC 02/15 MERLE 2239 Sodium Chloride 1,000 ML SEE RATE 02/14 1100 AC 02/15 IV 0144 Tiotropium [place] 1 PUF DAILY 02/16 1000 AC 02/22 INH 1008 Vital Signs & I&O Last 24 Hrs of Vitals and I&O: Vital Signs Date Time Temp Pulse Resp B/P B/P Pulse O2 O2 Flow FiO2 Mean Ox Delivery Rate 02/23 0659 97.9 87 20 100/70 96 Nasal 5.0L Cannula 02/23 0021 90 Nasal 7.0L Cannula 02/22 2229 97.9 92 20 98/70 97 Nasal Cannula 02/22 2030 26 98 Nasal 7.0L Cannula 02/22 2014 98.5 106 26 144/86 84 Nasal 5.0L Cannula 02/22 1710 97 Nasal 6.0L Cannula 02/22 1600 Nasal 6.0L Cannula 02/22 1354 98.2 86 18 130/70 99 Nasal Cannula 02/22 1009 70 112/70 02/22 0826 88 Nasal 7.0L Cannula Intake & Output 02/23 1600 02/23 0800 02/23 0000 Intake Total 200 Output Total Balance 200 Intake, IV 80 Intake, Oral 120 Oxygen saturation 5 L 96% exam for chest shows decreased breath sounds are no wheezes cardiac exam shows regular S1 and S2 without murmurs Impression/Plan Impression/Plan Impression/Plan: 37-year-old history of severe oxygen-dependent COPD lung cancer admitted with probable aspiration pneumonia culture positive with Pseudomonas gram-negative pneumonia. Acute on chronic hypoxic respiratory failure is improving. Patient remains extremely weak and appears to be failing. Apparently hospice was rejected. Recommendations: Continue to Taper FiO2. Physical therapy. Aspiration precautions. Complete course of antibiotics per infectious disease Slowly taper prednisone. Anticipate discharge next 24-48 hours hopefully to short-term rehabilitation to continue physical therapy as tolerated. Overall prognosis for meaningful recovery appears quite small
--- NOTE | 2017-02-23 09:16 | NUR ---
PT C/O DIFFICULTY BREATHING, O2 @ 87% ON 7L NC, RESPIRATORY NOTIFIED. TREATMENT ADMINISTERED, WILL CONTINUE TO MONITOR.
--- NOTE | 2017-02-23 10:27 | NUR ---
PT CONTINUE TO C/O OF DIFFICULTY BREATHING, O2 @ 87% ON 7L VEL, MD ORONA NOTIFIED STATED THIS IS PATIENT BASELINE BUT WILL BE IN TO SEE PATIENT, RESPIRATORY NOTIFIED PLACED PATIENT ON O2 PENDENT, WILL CONTINUE TO MONITOR.
--- NOTE | 2017-02-23 11:17 | PN- Att Addend ---
Attending Addendum Attending Brief Note Patient in bed, weak, short of breath, not eating case managing and patient and son had a long discussion yesterday regarding the patient's poor prognosis. Hospice consultation was offered. Patient's son will think about it and let us know. I think at this point she is not ready for any rehabilitation, and hopefully patient and son will make the right decisions Intake & Output 02/23 1600 02/23 0802/23 0000 02/22 1600 02/22 0802/22 0000 Intake Total 0 200 400 0 Output Total 350 250 200 450 Balance -350 200 150 -200 -450 Intake, IV 0 80 100 0 Intake, Oral 0 120 300 0 Number 0 0 Bowel Movements Output, Urine 350 250 200 450 Current Medications Sig/Kirill Start time Last Medication Dose Route Stop Time Status Admin Acetaminophen 650 MG .STK-MED ONE 02/23 0019 DC PO 02/23 0020 Acetaminophen 1,000 MG ONCE ONE 02/22 1300 DC 02/22 N/A 1 UNIT IV 02/22 1314 1305 Acetaminophen 650 MG Q4P PRN 02/22 0945 AC 02/23 PO 0015 Albuterol Sulfate 3 ML EVERY 4 HRS/AWAKE 02/15 2000 AC 02/23 INH 0921 Albuterol Sulfate 2 PUF Q4P PRN 02/15 1030 AC INH Apixaban 2.5 MG BID 02/14 2200 AC 02/23 PO 0832 Atorvastatin Calcium 80 MG 1700 02/14 1700 AC 02/22 PO 1645 Budesonide/ 2 PUF BID 02/15 1045 AC 02/23 Formoterol Fumarate INH 0840 Ceftazidime 1,000 MG Q12H 02/15 0800 AC 02/23 IV 0831 Diltiazem HCl 90 MG DAILY 02/14 1149 AC 02/23 PO 0912 Escitalopram Oxalate 10 MG DAILY 02/15 1000 AC 02/23 PO 0834 Glycerin 2 SPRAY Q2P PRN 02/14 1200 AC PO Guaifenesin 600 MG Q12 02/14 2200 AC 02/23 PO 0832 Lorazepam 0.125 MG BID PRN 02/17 1753 AC 02/23 PO 02/24 1752 0912 Melatonin 10 MG AT BEDTIME 02/14 2200 AC 02/22 PO 2130 Omeprazole 40 MG DAILY AC 02/23 0024 AC 02/23 PO 0831 Ondansetron HCl 4 MG ONCE ONE 02/22 1300 DC 02/22 IV 02/22 1301 1304 Polyethylene Glycol 17 GM DAILY 02/22 1933 AC 02/23 PO 0834 Prednisone 50 MG DAILY 02/24 1000 AC PO 02/26 1000 Prednisone 60 MG DAILY 02/21 1000 DC 02/22 PO 02/23 1000 1008 Promethazine HCl 12.5 MG Q6P PRN 02/22 1715 AC IV 03/01 1659 Promethazine HCl 12.5 MG ONCE ONE 02/22 1615 DC 02/22 IV 02/22 1616 1647 Sodium Chloride 2 SPRAY Q4P PRN 02/15 1215 AC 02/15 MERLE 2239 Sodium Chloride 1,000 ML SEE RATE 02/14 1100 AC 02/15 IV 0144 Tiotropium [place] 1 PUF DAILY 02/16 1000 AC 02/22 INH 1008 Vital Signs Date Time Temp Pulse Resp B/P B/P Pulse O2 O2 Flow FiO2 Mean Ox Delivery Rate 02/23 1051 99 Nasal Cannula 02/23 0912 92 22 110/70 02/23 0659 97.9 87 20 100/70 96 Nasal 5.0L Cannula 02/23 0021 90 Nasal 7.0L Cannula 02/23 0000 97 Nasal 7.0L Cannula 02/22 2229 97.9 92 20 98/70 97 Nasal Cannula 02/22 98 Nasal 7.0L Cannula 02/22 2014 98.5 106 26 144/86 84 Nasal 5.0L Cannula 02/22 1710 97 Nasal 6.0L Cannula 02/22 1600 Nasal 6.0L Cannula 02/22 1354 98.2 86 18 130/70 99 Nasal Cannula
[2017-02-23 14:22] VITALS: BP 120/68
--- NOTE | 2017-02-23 14:33 | NUR ---
SPEECH THERAPY: ATTEMPTED TO SEE PT FOR DYSPHAGIA TX. PER RN, PT W/ DECREASED APPETITE. AT BEDSIDE, PT ADAMANTLY REFUSING ALL PO TRIALS STATING SHE 'IS NAUSEOUS.' ST CONTINUE TO FOLLOW CLINICALLY INDICATED. D/W RN.
[2017-02-23 23:08] VITALS: BP 110/80
--- NOTE | 2017-02-24 | NUR ---
NURSING NOTE: PT AXILLARY TEMP 95.9 @ 2300. MULTIPLE BLANKETS PLACED ON PT, ROOM TEMP INCREASED. WILL RECHECK TEMPERATURE AT 0200.
--- NOTE | 2017-02-24 04:30 | NUR ---
NURSING NOTE: PT REPEAT RECTAL TEMPERATURE 95.6. DANY AWARE. PER MD, CONTINUE WATCHING PT.
--- NOTE | 2017-02-24 05:10 | PN- Housestaff ---
Subjective Follow-up For: Pseudomonas pneumonia Hypoxic respiratory failure Guaiac positive stools Subjective: Patient in severe distress unable to speak. Review of Systems Constitutional: Reports: see HPI. Objective Last 24 Hrs of Vital Signs/I&O Vital Signs Date Time Temp Pulse Resp B/P B/P Pulse O2 O2 Flow FiO2 Mean Ox Delivery Rate 02/24 0540 96 70 02/24 0355 95.6 02/24 0241 95.5 02/24 0108 91 Nasal 7.0L Cannula 02/24 0000 91 Nasal 7.0L Cannula 02/23 2308 95.9 79 18 110/80 95 Nasal Cannula 02/23 1609 97 Nasal 10L Cannula 02/23 1422 98.2 60 18 120/68 95 02/23 1051 99 Nasal Cannula 02/23 0912 92 22 110/70 02/23 0800 93 Nasal 7.0L Cannula 02/23 0659 97.9 87 20 100/70 96 Nasal 5.0L Cannula Intake & Output 02/24 0800 02/24 0000 02/23 1600 Intake Total 100 Output Total 250 Balance -150 Intake, Oral 100 Output, Urine 250 Physical Exam General Appearance: Severe Distress Skin Temp/Moisture Exam: Cool/Dry Sepsis Skin Exam (color): Cyanotic, Pale HEENT: pupils dilated Cardiovascular: Normal S1, Normal S2 Lungs: b/l decreased bs with coarse rhonchi Assessment/Plan Assessment: 76-year-old woman from [place] with a past medical history of COPD on 1.5-2 L of oxygen at home, atrial fibrillation on Eliquis, left lung cancer status post radiation in September 2015, anxiety, depression, osteoporosis, recently admitted to [facility] on 01/31/17 episode of syncope BIBA for episode of desaturation at the ECF. CXR pertinant for increasing consolidation in the medial aspect of the right lung base,concerning for pneumonia. CT chest without contrast significant for endotracheal debris/mucus, extensive filling defects seen in the lobar and segmental airways of both lower lobes with complete occlusion of the medial and posterior basal segmental airways leading to dense parenchymal consolidation in both lower lobes. Severely dyspneic, notified by nurse of hypothermia to 95.6 and BP of 104/50 Problem list: 1. Pseudomonas healthcare acquired pneumonia 2. Acute hypoxic respiratory failure 3. Guaic positive stools Pseudomonas HCAP/Acute hypoxic respiratory failure/end stage COPD * Continue with ceftazidime day 10 * On PO prednisone, will continue with slow taper. * Continue mucolytics with acappella therapy, Mucinex 600 mg Q12. If concern for mucous plugging consider N-acetylcysteine * At this time no plan to continue with bronchoscopy in the setting of high risk for intubation Patient was transferred to ICU for rewarming and BIPAP. Ordered stat CXR and ABG. Will r/o pulm edema prior to bolusing her. I spoke to her Son regarding her very poor prognosis and he wished her to be on the BIPAP. Dr. Gallagher was also notified. Signout given to ICU team. Atrial fibrillation * guaic positive stool. Continue on Eliquis, Diltiazem and Aspirin Depression and anxiety * Continue Ativan and Lexapro DVT prophylaxis with Eliquis Heart healthy diet DNR/DNI Problem List: 1. Pseudomonas pneumonia 2. Moderate malnutrition Pain Ratin Pain Location: na Pain Goal: Pain 4 or less Pain Plan: current regimen Tomorrow's Labs & Rationales: none required Consulting Request: Consulting Specialty: Pulmonary Disease
--- NOTE | 2017-02-24 06:15 | NUR ---
PATIENT TRANSFER FROM AT 0550. PT UNRESPONSIVE TO VERBAL STIMULI.ON 100% VENTIMASK WITH O2 SAT 69% 0N FINGER.RESPIRATORY AT BEDSIDE AND PLACED PATIENT ON BIPAP AT 100% AND DID ABG. MONITOR SINUS RHYTHM AT RATE OF 84.MANUAL BP =80/50. RECTAL TEMP=94.8. DONA HUGGER APPLIED.CXR DONE.AT 0615 BP=60/DOP. REPORTED TO .500 ML NS BOLUS GIVEN.
--- NOTE | 2017-02-24 06:45 | NUR ---
CHANCE CATHETER INSERTED.SPECIMEN SENT TO LAB.
--- NOTE | 2017-02-24 07:13 | RADIOLOGY REPORT ---
EXAMINATION: XR PORTABLE CHEST CLINICAL INFORMATION: Worsening shortness of breath. COMPARISON: Chest Portable 02/19/2017 TECHNIQUE: Portable frontal view of the chest was obtained. FINDINGS: Both lungs are emphysematous with large bullous changes in both upper lobes. There is a right lower lobe opacity consistent with pneumonic infiltrate minimally improved compared to 02/19/2017. The left lung base appears clear. The heart size and pulmonary vascularity is normal. No gross bony abnormality seen. IMPRESSION: Minimal improvement in the right lower lobe pneumonic infiltrate. No change in diffuse emphysema and bullous findings in upper lobe.
[2017-02-24 08:00] VITALS: BP 84/00
--- NOTE | 2017-02-24 08:02 | NUR ---
NURSING NOTE: AT 0430 PT O2SAT NOTED TO BE 49% ON 7L NC. RECTAL TEMP REMAINED 95.5 BP 102/54 HR 96 RR 16. MD ORONA AT BEDSIDE. RESPIRATORY THERAPIST MYLA AT BEDSIDE. ORDER PLANCED FOR STAT TRANSFER TO ICU. BED ASSIGNED 109. PT TRANSFERED. SPOKE WITH SON, SHAY, REGARDING PLAN OF CARE. ORDER FOR STAT CHEST XRAY PLACED.
--- NOTE | 2017-02-24 10:06 | PN- Pulmonary ---
Subjective HPI/Critical Care Issues: Patient had acute worsening of hypoxic respiratory failure requiring transfer to the ICU arterial blood gases show profound hypoxia and worsening acute hypercarbic respiratory failure. Over sedation with his son revolved around her continued deterioration decision was made to engage hospice. Objective Current Medications: Current Medications Sig/Kirill Start time Last Medication Dose Route Stop Time Status Admin Acetaminophen 650 MG .STK-MED ONE 02/23 2310 DC PO 02/23 2311 Acetaminophen 650 MG .STK-MED ONE 02/23 1642 DC PO 02/23 1643 Acetaminophen 650 MG Q4P PRN 02/22 0945 AC 02/23 PO 2319 Albuterol Sulfate 3 ML EVERY 4 HRS/AWAKE 02/15 2000 AC 02/24 INH 0839 Albuterol Sulfate 2 PUF Q4P PRN 02/15 1030 AC INH Apixaban 2.5 MG BID 02/14 2200 AC 02/23 PO 2200 Atorvastatin Calcium 80 MG 1700 02/14 1700 AC 02/23 PO 1642 Budesonide/ 2 PUF BID 02/15 1045 AC 02/23 Formoterol Fumarate INH 2200 Ceftazidime 1,000 MG Q12H 02/15 0800 AC 02/23 IV 2020 Diltiazem HCl 90 MG DAILY 02/14 1149 AC 02/23 PO 0912 Escitalopram Oxalate 10 MG DAILY 02/15 1000 AC 02/23 PO 0834 Glycerin 2 SPRAY Q2P PRN 02/14 1200 AC PO Guaifenesin 600 MG Q12 02/14 2200 AC 02/23 PO 2200 Lorazepam 0.125 MG BID PRN 02/17 1753 AC 02/23 PO 02/24 1752 1641 Melatonin 10 MG AT BEDTIME 02/14 2200 AC 02/23 PO 2200 Omeprazole 40 MG DAILY AC 02/23 0024 AC 02/23 PO 0831 Polyethylene Glycol 17 GM DAILY 02/22 1933 AC 02/23 PO 1000 Prednisone 50 MG DAILY 02/27 1000 AC PO 03/01 1000 Prednisone 50 MG DAILY 02/24 1000 AC PO 02/26 1000 Promethazine HCl 25 MG .STK-MED ONE 02/23 1250 DC IM 02/23 1251 Promethazine HCl 12.5 MG Q6P PRN 02/22 1715 AC 02/23 IV 03/01 1659 2319 Sodium Chloride 500 ML BOLUS ONE 02/24 0615 DC 02/24 IV 02/24 0714 0639 Sodium Chloride 2 SPRAY Q4P PRN 02/15 1215 AC 02/15 MERLE 2239 Sodium Chloride 1,000 ML SEE RATE 02/14 1100 AC 02/15 IV 0144 Tiotropium [place] 1 PUF DAILY 02/16 1000 AC 02/23 INH 1000 Vital Signs & I&O Last 24 Hrs of Vitals and I&O: Vital Signs Date Time Temp Pulse Resp B/P B/P Pulse O2 O2 Flow FiO2 Mean Ox Delivery Rate 02/24 0825 99 BIPAP 100% 02/24 0825 99 100 02/24 0540 96 70 02/24 0355 95.6 02/24 0241 95.5 02/24 0108 91 Nasal 7.0L Cannula 02/24 0000 91 Nasal 7.0L Cannula 02/23 2308 95.9 79 18 110/80 95 Nasal Cannula 02/23 1609 97 Nasal 10L Cannula 02/23 1422 98.2 60 18 120/68 95 02/23 1051 99 Nasal Cannula Intake & Output 02/24 1600 02/24 0800 02/24 0000 Intake Total 500 100 Output Total 660 250 Balance -160 -150 Intake, IV 500 Intake, Oral 100 Output, Urine 660 250 Patient is lethargic and hypotensive and hypothermic on BiPAP FiO2 100% saturation 100% exam for chest shows diminished breath sounds cardiac exam shows regular rhythm abdomen is soft nontender patient is able to weakly follow commands Impression/Plan Impression/Plan Impression/Plan: 37-year-old history of severe oxygen-dependent COPD lung cancer admitted with probable aspiration pneumonia culture positive with Pseudomonas gram-negative pneumonia. Acute on chronic hypoxic respiratory failure is improving. Patient remains extremely weak and appears to be failing. Patient is developed acute on chronic hypercapnic respiratory failure acute hypoxic respiratory failure. I replaced his son as to the severity of her current status and recommended begin a conversation regarding the direction of her care proceeding to hospice. He is agreed to meet with hospice this afternoon. Recommendations: Continue to Taper FiO2. Continue BiPAP assess arterial blood gases. X-ray does not show any acute worsening. Await outcome of hospice discussion. Convert medications to IV as needed
--- NOTE | 2017-02-24 10:31 | NUR ---
Physical Therapy: Pt transfered from to ICU. Pt noted to be hypoxic. At this time will place pt on hold from skilled PT. Please reconsult when pt medically stable and appropriate for skilled PT intervnetion. Thank you.
[2017-02-24 12:00] VITALS: BP 106/70
--- NOTE | 2017-02-24 12:35 | PN- Att Addend ---
Attending Addendum Attending Brief Note Over night the patient deteriorated became more short of breath and severe hypoxemia worsening of her respiratory failure urine becoming hypercarbic patient is DNR but still was transferred to the intensive care unit, was started on BiPAP was seen by Dr. Richardson and recommendations were given to pulmonary had long discussions with the patient's son regarding hospice care and comfort care due to the poor prognosis and rapid deterioration son will discuss with his brother and make a final decision later on todayin the meantime continue the present treatment patient is a little bit more awake but frightened him a sister at her bedside Intake & Output 02/24 1600 02/24 0800 02/24 0000 02/23 1600 02/23 0800 02/23 0000 Intake Total 500 100 0 200 Output Total 660 250 350 Balance -160 -150 -350 200 Intake, IV 500 0 80 Intake, Oral 100 0 120 Number 0 Bowel Movements Output, Urine 660 250 350 Current Medications Sig/Kirill Start time Last Medication Dose Route Stop Time Status Admin Acetaminophen 650 MG .STK-MED ONE 02/23 2310 DC PO 02/23 2311 Acetaminophen 650 MG .STK-MED ONE 02/23 1642 DC PO 02/23 1643 Acetaminophen 650 MG Q4P PRN 02/22 0945 AC 02/23 PO 2319 Albuterol Sulfate 3 ML EVERY 4 HRS/AWAKE 02/15 2000 02/24 INH 0839 Albuterol Sulfate 2 PUF Q4P PRN 02/15 1030 AC INH Apixaban 2.5 MG BID 02/14 2200 AC 02/23 PO 2200 Atorvastatin Calcium 80 MG 1700 02/14 1700 AC 02/23 PO 1642 Budesonide/ 2 PUF BID 02/15 1045 AC 02/23 Formoterol Fumarate INH 2200 Ceftazidime 1,000 MG Q12H 02/15 0800 AC 02/24 IV 0845 Diltiazem HCl 5 MG ONCE ONE 02/24 1230 UNVr 02/24 IV 02/24 1231 1230 Diltiazem HCl 90 MG DAILY 02/14 1149 AC 02/23 PO 0912 Escitalopram Oxalate 10 MG DAILY 02/15 1000 AC 02/23 PO 0834 Glycerin 2 SPRAY Q2P PRN 02/14 1200 AC PO Guaifenesin 600 MG Q12 02/14 2200 AC 02/23 PO 2200 Lorazepam 0.125 MG BID PRN 02/17 1753 AC 02/23 PO 02/24 1752 1641 Melatonin 10 MG AT BEDTIME 02/14 2200 AC 02/23 PO 2200 Methylprednisolone 40 MG Q8 02/24 1400 AC 02/24 IV 1147 Omeprazole 40 MG DAILY AC 02/23 0024 AC 02/23 PO 0831 Polyethylene Glycol 17 GM DAILY 02/22 1933 AC 02/23 PO 1000 Prednisone 50 MG DAILY 02/27 1000 CAN PO 03/01 1000 Prednisone 50 MG DAILY 02/24 1000 DC PO 02/26 1000 Promethazine HCl 25 MG .STK-MED ONE 02/23 1250 DC IM 02/23 1251 Promethazine HCl 12.5 MG Q6P PRN 02/22 1715 AC 02/23 IV 03/01 1659 2319 Sodium Chloride 500 ML BOLUS ONE 02/24 0615 DC 02/24 IV 02/24 0714 0639 Sodium Chloride 2 SPRAY Q4P PRN 02/15 1215 AC 02/15 MERLE 2239 Sodium Chloride 1,000 ML SEE RATE 02/14 1100 AC 02/15 IV 0144 Tiotropium [place] 1 PUF DAILY 02/16 1000 AC 02/23 INH 1000 Laboratory Tests 02/24/17 1145: Lactic Acid Pending 02/24/17 1145: Sodium Pending, Potassium Pending, Chloride Pending, Carbon Dioxide Pending, Anion Gap Pending, BUN Pending, Creatinine Pending, Glucose Pending, Calcium Pending, Phosphorus Pending, Magnesium Pending, Total Bilirubin Pending, AST Pending, ALT Pending, Albumin Pending, PT Pending, INR Pending, CBC w Diff Pending, WBC Pending, RBC Pending, Hgb Pending, Hct Pending, MCV Pending, MCH Pending, RDW Pending, Plt Count Pending, MPV Pending, PUBS MCHC Pending 02/24/17 0550: pH 7.17 *L, pCO2 99 *H, pO2 43 *L, HCO3 36 H, ABG O2 Sat (Measured) 70.0 L, P- 50 (Temp Corrected) Y, Carboxyhemoglobin 0.6 L, O2 Concentration % 100%, Temperature 95.6 L, Respiration Rate 30, O2 Delivery Method VISION-FFM, Vent Mode ST, Expiratory Pressure 8, Inspiratory Pressure 28, Phlebotomy Draw Site RIGHT RADIAL Vital Signs Date Time Temp Pulse Resp B/P B/P Pulse O2 O2 Flow FiO2 Mean Ox Delivery Rate 02/24 08 99 BIPAP 100% 02/24 825 99 100 02/24 0540 96 70 02/24 0355 95.6 02/24 0241 95.5 02/24 0108 91 Nasal 7.0L Cannula 02/24 0000 91 Nasal 7.0L Cannula 02/23 2308 95.9 79 18 110/80 95 Nasal Cannula 02/23 1609 97 Nasal 10L Cannula 02/23 1422 98.2 60 18 120/68 95
[2017-02-24 12:49] LABS: ABSOLUTE BASOPHIL COUNT 0 /CUMM (0.0-0.2); ABSOLUTE EOSINOPHIL COUNT 0 /CUMM (0.0-0.7); ABSOLUTE GRANULOCYTE CT 22.2 /CUMM (1.4-6.5); ABSOLUTE LYMPH COUNT 0.1 /CUMM (1.2-3.4); ABSOLUTE MONOCYTE COUNT 0.9 /CUMM (0.10-0.60); BASOPHIL % 0 % (0.0-2.0); EOSINOPHIL % 0 % (0-5); GRANULOCYTE % 95.9 % (42.2-75.2); HEMATOCRIT 37.3 % (37-47); MEAN CORPUSCULAR HGB 27.7 PG (27.0-31.0); MEAN CORPUSCULAR HGB CONC 32.2 G/DL (33.0-37.0); MEAN PLATELET VOLUME 8.5 FL (7.4-10.4); PLATELET COUNT 251 /CUMM (130-400); RBC DISTRIBUTION WIDTH 18.4 % (11.5-14.5); RED BLOOD CELL CT 4.34 /CUMM (4.20-5.40); WHITE BLOOD CELL COUNT 23.1 /CUMM (4.8-10.8)
[2017-02-24 16:00] VITALS: BP 130/72
--- NOTE | 2017-02-24 16:00 | NUR ---
ASSUMED CARE OF PATIENT. PATIENT ALERT OR TO NAME AND PLACE ON BIPAP ASKING THAT IT BE STOPPED. HOSPICE NURSE HEAR TO MEET WITH PATIENT AND FAMILY BUT FAMILY IS NOT PRESENT PLANNED. MONITOR STACH, REGULAR HEART SOUNDS, BILATERAL UPPER EXTREMITIES EXTREMELY EDEMATOUS AND WEEPING LARGE AMOUNTS OF SEROUS FLUID, LINEN AND PADS CHANGES UNDER BOTH ARMS. LUNGS WITH SCATTERED RHONCHI AND WHEEZES THROUGHTOUT. ABD SOFT NON TENDER, CHANCE INTACT DRAINING SCANT AMT CLEAR URINE. MULTIPLE SKIN ISSUES WITH DUODERM TO COCCYX. IV INTACT AND INFUSING WELL.
--- NOTE | 2017-02-24 19:19 | NUR ---
SON IS NOW HERE BUT HOSPICE NURSE HAS LEFT. CASE MANAGEMENT CALLED AND HOSPICE TO RETURN BETWEEN 7 AND 8 AND SON HAS AGREED TO WAIT FOR THEM. BIPAP REMOVED FROM PATIENT AND PATIENT MEDICATED FOR PAIN ORDERED. PATIENT RESTING MORE COMFORTABLY AT THIS TIME.
--- NOTE | 2017-02-24 19:33 | NUR ---
Patient presents with multiple areas of DTI. Left buttock wound measures 2.5 X 1.2- DTI appears to be evolving with some dark purple areas that appear to be open with some scant bloody drainage. Coccyx DTI area intact and measures 5 X 1cm. Dark purple and non blanchable. Admission documentation states that open areas were noted on admission. A large duoderm was applied to the area at this time. Patient is currently in the ICU and a hospice consult has been ordered since patient has declined. Dr. Richardson in to see patient this morning and was notified of areas of skin breakdown. Duoderm to remain in place and change every 3-5 days and as needed. A clinitron bed to be ordered if hospice care is declined by family. Will continue to follow.
--- NOTE | 2017-02-24 21:44 | NUR ---
PATIENT RESTING COMFORTABLY. PATIENT IN PROCESS OF BEING DISCHARGED AND ADMITTED TO HOSPICE. HOSPICE MEETING WITH PATIENT AND SON AT THIS TIME.
--- NOTE | 2017-02-24 21:54 | Event Note ---
Event Note Event Note: The patient Son had a discussion with the hospice nurse and it was decided to change the patient service to hospice. I spoke with Dr Davis Gallagher (attending doctor on record), hospice nurse Orly Waite, and carried out the instructions for hospice care per Dr Gallagher's instructions. * Patient's code status changed to Hospice care. [2152 hrs] * Discontinued all morning/future lab orders. * Discontinued all current medications. * Nursing staff informed. * Discharge the patient to hospice care. Plan: * Readmit the patient as hospice care under Dr. Davis Davis as admitting doctor for hospice. * Medication orders and instructions for hospice care according to Dr. Davis Gallagher and hospice nurse's recommendation. Nursing staff notified of the update.
--- NOTE | 2017-02-25 16:25 | Discharge Summary ---
Visit Information Visit Dates Admission Date: 02/16/17 Discharge Date: 02/24/17 Hospital Course Course Attending Physician: CHI LEY MD Primary Care Physician: CHI LEY MD Consulting Request: Consulting Specialty: Pulmonary Disease (and infectious diseases) Consulting Physician: Drs. Guevara and Conor Reason for Consult: respiratory failure/pneumonia/lung cancer Hospital Course: 77-year-old white female with end-stage COPD and lung cancer, had been not to short-term rehabilitation and overnight became very hypoxemic sent back to the hospital with respiratory failure and the possible postobstructive pneumonia. Patient was seen by pulmonary and infectious diseases year with therapy she did not seem to improve and denied before transferring to hospice became very hypoxic again transfer to the ICU was given BiPAP marginal response. Pulmonary had a discussion with the patient's son stating that condition is severe and probably not reversible and patient's son will discuss with his brother and family to give the patient comfort care and hospice care later on the next day patient's son agreed to transfer patient to hospice for comfort care that was done that day. Allergies: Coded Allergies: levofloxacin (Mild, LEGS FELT TIGHT 12/17/16) amoxicillin (ANAPHYLAXIS 12/17/16) clarithromycin (UNKNOWN - PT DOESNT REMEMBER WAS TOLD BY MD NOT TO TAKE 12/17/16 ) doxycycline (GI UPSET 12/28/16) Significant Procedures: SERVICE DATE: 02/16/17-1299 EXAM TYPE: RAD - XRY-MODIFIED BARIUM SWALLOW EXAMINATION: XR MODIFIED BARIUM SWALLOW CLINICAL INFORMATION: Hypoxia. Presumptive diagnosis of aspiration. COMPARISON: CT scan of the chest dated 02/14/2017. TECHNIQUE: A modified barium swallow was performed with speech pathologist in attendance. Pur?e, honey thick, nectar thick, thin, bread, and cracker consistencies were given to the patient and the swallowing mechanism was observed fluoroscopically with several spot films taken. FLUOROSCOPY TIME: 2 minutes 3 seconds. FINDINGS: With all consistencies, the oropharyngeal phase of swallowing is normal with no laryngeal or nasopharyngeal aspiration seen. With puree, slight residual is noted in the vallecula, which clears with successive swallowing. No significant pooling of contrast in the valleculae or piriform sinuses is seen with the remaining barium consistencies. IMPRESSION: 1. Mild pooling of contrast in the valleculae seen with puree. 2. Otherwise unremarkable exam. 3. Speech pathologist assessment issued separately. SERVICE DATE: 02/19/17- EXAM TYPE: RAD - XRY-PORTABLE CHEST XRAY EXAMINATION: CHEST 1 VIEW CLINICAL INFORMATION: Hypoxia. COMPARISON: Multiple prior exams are reviewed. The most recent is from 02/14/2017.. TECHNIQUE: An AP view of the chest is provided. FINDINGS: The cardiac silhouette is stable. There is persistent streaky and patchy opacification at the right lung base. There is increasing airspace disease at the left lung base. The lungs are hyperinflated. The osseous structures are stable. IMPRESSION: Persistent airspace disease at the right lung base. Increasing airspace disease at the left lung base. SERVICE DATE: 02/24/170520 EXAM TYPE: RAD - XRY-PORTABLE CHEST XRAY EXAMINATION: XR PORTABLE CHEST CLINICAL INFORMATION: Worsening shortness of breath. COMPARISON: Chest Portable 02/19/2017 TECHNIQUE: Portable frontal view of the chest was obtained. FINDINGS: Both lungs are emphysematous with large bullous changes in both upper lobes. There is a right lower lobe opacity consistent with pneumonic infiltrate minimally improved compared to 02/19/2017. The left lung base appears clear. The heart size and pulmonary vascularity is normal. No gross bony abnormality seen. IMPRESSION: Minimal improvement in the right lower lobe pneumonic infiltrate. No change in diffuse emphysema and bullous findings in upper lobe. Pertinent Lab Results: 02/14 02/14 0615 0506 Blood Gas pH (7.35 - 7.45 PH) 7.37 pCO2 (35 - 45 TORR) 49 H pO2 (80 - 100 TORR) 83 HCO3 (21 - 28 MEQ/L) 28 ABG O2 Sat (Measured) (>96.0 %) 94.0 L P-50 (Temp Corrected) Y Carboxyhemoglobin (1.5 - 5.0 %) 0.6 L O2 Concentration % 100% Temperature (97.0 - 100.0 FARH) 97.6 Respiration Rate (BPM) 24 O2 Delivery Method VISION-FFM Vent Mode ST Expiratory Pressure (CM H2O P) 6 Inspiratory Pressure (CM H2O P) 16 Chemistry Sodium (137 - 145 mmol/L) 143 Potassium (3.5 - 5.1 mmol/L) 4.0 Chloride (98 - 107 mmol/L) 99 Carbon Dioxide (22 - 30 mmol/L) 34 H Anion Gap (5 - 16) 10 BUN (7 - 17 mg/dL) 27 H Creatinine (0.5 - 1.0 mg/dL) 0.5 Estimated GFR (>60 ml/min) > 60 BUN/Creatinine Ratio (7 - 25 %) 54.0 H Glucose (65 - 99 mg/dL) 168 H Calcium (8.4 - 10.2 mg/dL) 8.9 Troponin I (< 0.11 ng/ml) 0.04 Ang-D-Axclfpouzhg Pept (<125 pg/mL) 497 H Hematology CBC w Diff NO MAN DIFF REQ WBC (4.8 - 10.8 /CUMM) 33.2 *H RBC (4.20 - 5.40 /CUMM) 4.96 Hgb (12.0 - 16.0 G/DL) 13.8 Hct (37 - 47 %) 42.5 MCV (81.0 - 99.0 FL) 85.7 MCH (27.0 - 31.0 PG) 27.7 RDW (11.5 - 14.5 %) 18.5 H Plt Count (130 - 400 /CUMM) 400 MPV (7.4 - 10.4 FL) 7.7 Gran % (42.2 - 75.2 %) 92.2 H Lymphocytes % (20.5 - 51.1 %) 3.3 L Monocytes % (1.7 - 9.3 %) 4.4 Eosinophils % (0 - 5 %) 0 Basophils % (0.0 - 2.0 %) 0.1 Absolute Granulocytes (1.4 - 6.5 /CUMM) 30.6 H Absolute Lymphocytes (1.2 - 3.4 /CUMM) 1.1 L Absolute Monocytes (0.10 - 0.60 /CUMM) 1.4 H Absolute Eosinophils (0.0 - 0.7 /CUMM) 0 Absolute Basophils (0.0 - 0.2 /CUMM) 0 PUBS MCHC (33.0 - 37.0 G/DL) 32.4 L Miscellaneous Phlebotomy Draw Site LEFT RADIAL note increase in WBC 02/19/17 0800: Anion Gap 4 L, Estimated GFR > 60, BUN/Creatinine Ratio 52.0 H, CBC w Diff MAN DIFF ORDERED, RBC 3.99 L, MCV 85.8, MCH 27.9, RDW 18.2 H, MPV 8.2, Gran % 97.3 H, Lymphocytes % 0.6 L, Monocytes % 2.1, Eosinophils % 0, Basophils % 0 L, Absolute Granulocytes 20.2 H, Segmented Neutrophils 95 H, Band Neutrophils 5, Absolute Lymphocytes 0.1 L, Absolute Monocytes 0.4, Absolute Eosinophils 0, Absolute Basophils 0, Platelet Estimate ADEQUATE, Normocytic RBCs VERIFIED, Normochromic RBCs VERIFIED, Elliptocytes FEW, PUBS MCHC 32.5 L 02/18/17 1025: Anion Gap 7, Estimated GFR > 60, BUN/Creatinine Ratio 65.0 H, Phosphorus 2.4 L , Magnesium 2.2, Vancomycin Trough < 5.0 L 02/17/17 1732: CBC w Diff NO MAN DIFF REQ, RBC 4.08 L, MCV 85.5, MCH 27.7, RDW 17.8 H, MPV 8.1, Gran % 97.5 H, Lymphocytes % 0.5 L, Monocytes % 2.0, Eosinophils % 0, Basophils % 0 L, Absolute Granulocytes 18.6 H, Absolute Lymphocytes 0.1 L, Absolute Monocytes 0.4, Absolute Eosinophils 0, Absolute Basophils 0, PUBS MCHC 32.3 L 02/17/17 0705: CBC w Diff NO MAN DIFF REQ, RBC 3.92 L, MCV 85.8, MCH 28.5, RDW 18.2 H, MPV 7.9, Gran % 98.7 H, Lymphocytes % 0.6 L, Monocytes % 0.7 L, Eosinophils % 0, Basophils % 0 L, Absolute Granulocytes 19.6 H, Absolute Lymphocytes 0.1 L, Absolute Monocytes 0.1 L, Absolute Eosinophils 0, Absolute Basophils 0, PUBS MCHC 33.2 Microbiology 02/17 1925 UPPER RESP: Surveillance Culture - COMP Microbiology 02/17 1925 UPPER RESP: Surveillance Culture - COMP 02/20/17 0740: Anion Gap 5, Estimated GFR > 60, BUN/Creatinine Ratio 52.0 H 02/20/17 0600: CBC w Diff Pending, WBC Pending, RBC Pending, Hgb Pending, Hct Pending, MCV Pending, MCH Pending, RDW Pending, Plt Count Pending, MPV Pending, PUBS MCHC Pending 02/24/17 1145: Lactic Acid Pending 02/24/17 1145: Sodium Pending, Potassium Pending, Chloride Pending, Carbon Dioxide Pending, Anion Gap Pending, BUN Pending, Creatinine Pending, Glucose Pending, Calcium Pending, Phosphorus Pending, Magnesium Pending, Total Bilirubin Pending, AST Pending, ALT Pending, Albumin Pending, PT Pending, INR Pending, CBC w Diff Pending, WBC Pending, RBC Pending, Hgb Pending, Hct Pending, MCV Pending, MCH Pending, RDW Pending, Plt Count Pending, MPV Pending, PUBS MCHC Pending 02/24/17 0550: pH 7.17 *L, pCO2 99 *H, pO2 43 *L, HCO3 36 H, ABG O2 Sat (Measured) 70.0 L, P- 50 (Temp Corrected) Y, Carboxyhemoglobin 0.6 L, O2 Concentration % 100%, Temperature 95.6 L, Respiration Rate 30, O2 Delivery Method VISION-FFM, Vent Mode ST, Expiratory Pressure 8, Inspiratory Pressure 28, Phlebotomy Draw Site RIGHT RADIAL Disposition Summary Disposition Principal Diagnosis: Acute hypoxic respiratory failure in a patient with end-stage COPD and lung cancer postobstructive pneumonia Additional Diagnosis: History of atrial fibrillation Anxiety depression Osteoporosis Discharge Disposition: hospice - medical facilit Discharge Instructions General Discharge Information Code Status: Hospice Patient's Diet: As per hospice Patient's Activity: Bed rest Follow-Up Instructions/Appts: As per hospice Medications at Discharge Discharge Medications: Stop taking the following medications: Fluticasone/Salmeterol (Advair 250-50 Diskus) 1 EACH BLST.W.DEV Inhale through mouth TWICE DAILY Tiotropium [place] (Spiriva) 18 MCG CAP.W.DEV Inhale through mouth DAILY Albuterol Sulfate (Albuterol Sulfate) 0.63 MG/3 ML VIAL.NEB Inhale Solution THREE TIMES DAILY Albuterol Sulfate (Proair Respiclick) 90 MCG AER.POW.BA Inhale through mouth EVERY 4-6 HOURS as needed for COPD Qty = 1 Apixaban (Eliquis) 2.5 MG TABLET ORAL TWICE DAILY Qty = 180 Diltiazem HCl (Diltiazem 12HR ER) 90 MG CAP.ER.12H ORAL DAILY Furosemide (Lasix) 20 MG TABLET ORAL DAILY Qty = 90 Atorvastatin Calcium (Atorvastatin Calcium) 80 MG TABLET ORAL 5 PM Qty = 60 Aspirin (Aspirin*) 81 MG TAB.CHEW ORAL DAILY Qty = 90 Loratadine (Loratadine) 10 MG TABLET ORAL DAILY Qty = 60 Guaifenesin (Guaifenesin ER) 600 MG TAB.ER.12H ORAL EVERY 12 HOURS Qty = 90 Melatonin (Melatonin) 5 MG TABLET ORAL AT BEDTIME Qty = 90 Saliva Substitute Combo No.9 (Biotene) 473 ML MOUTHWASH ORAL EVERY 2 HOURS NEEDED as needed for DRY MOUTH Qty = 90 Lorazepam (Ativan) 0.5 MG TABLET ORAL TWICE DAILY as needed for ANXIETY/INSOMNIA Qty = 90 Levalbuterol HCl (Xopenex) 1.25 MG/3 ML VIAL.NEB Inhale through mouth THREE TIMES DAILY Levalbuterol HCl (Xopenex) 1.25 MG/3 ML VIAL.NEB Inhale through mouth EVERY 4 HOURS NEEDED as needed for SHORTNESS OF BREATH Budesonide (Pulmicort) 0.5 MG/2 ML AMPUL.NEB Inhale Solution TWICE DAILY Escitalopram Oxalate (Lexapro) 10 MG TABLET ORAL DAILY Prednisone (Prednisone) 20 MG TABLET ORAL DAILY Copies To: LÓPEZ CLIFFORD,ZEB Torres; CONOR CLIFFORD,TADEO Clark; CHI LEY MD Attending Review Statement Documenting Attending: CHI LEY MD
== END 2017-02-24 22:41 | disposition hospice, home (50) | DRG 190 ==
LOC: ERH 04:40 → ERHI 07:56 → ENRESERV 20:31 → ENTRNSPT 21:16 → EDTRNSPTSTS 21:20 → 2NA 21:32 → CMPTRNSPT 21:40 → 2NA 02-16 10:40 → CRI 02-24 05:46 → 2NA 02-24 22:30
PROVIDERS: Emergency Medicine; Internal Medicine; ADMIT Internal Medicine
PROC: 5A09357 Assistance with Respiratory Ventilation, Less than 24 Consecutive Hours, Continuous Positive Airway Pressure (ICD-10-PCS; principal; 2017-02-14)
DX: J44.0 Chronic obstructive pulmonary disease with (acute) lower respiratory infection (principal); J96.21 Acute and chronic respiratory failure with hypoxia; J15.1 Pneumonia due to Pseudomonas; E44.0 Moderate protein-calorie malnutrition; R64 Cachexia; Z99.81 Dependence on supplemental oxygen; I48.2 Chronic atrial fibrillation; J96.22 Acute and chronic respiratory failure with hypercapnia; Z68.1 Body mass index [BMI] 19.9 or less, adult; Z51.5 Encounter for palliative care; E83.39 Other disorders of phosphorus metabolism; Z79.01 Long term (current) use of anticoagulants; F41.9 Anxiety disorder, unspecified; F32.9 Major depressive disorder, single episode, unspecified; M81.0 Age-related osteoporosis without current pathological fracture; Z66 Do not resuscitate; J44.1 Chronic obstructive pulmonary disease with (acute) exacerbation; R62.7 Adult failure to thrive; R19.5 Other fecal abnormalities; R68.0 Hypothermia, not associated with low environmental temperature; Z85.118 Personal history of other malignant neoplasm of bronchus and lung
CPT/HCPCS: 2NAP; 36415; 74230; 82436; 87040; 87070; 87086; 87449; 87450; 92610-GN; 93005; 93010; 97112-GO; 97162-GP; 97530-GO; 99291; G8996-GN; G8997-GN; J0131; J0694; J0713; J2405; J2550; J2920; J2930; J3101; J3370; J3490; J7040; J7512